=== PATIENT | female | born 1945 | race Caucasian/White ===

== ENCOUNTER → 2016-11-24 | Outpatient (CLI) | payer OTHER ==
[~2016-11-24] MED LIST: ALL100 PO; ASPCH81X PO; ATOR-26 PO; CALCTAB7 PO; CLS1 PO; FISHOIL PO; FLV1 PO; GLIP5TAB11 PO; METO25TA56 PO; MULTTAB58 PO; WARF2.5T8 PO; ZNT/150 PO
[2016-11-24 17:31] LABS: HEMATOCRIT 42.1 % (37-47); MEAN CELL VOLUME 101.2 fL (80-100); MEAN CORPUSCULAR HEMOGLOBIN 30.8 pg (25-34); MEAN CORPUSCULAR HGB CONC 30.4 g/dl (32-36); MEAN PLATELET VOLUME 11.9 fL (7.4-10.4); PLATELET COUNT 266 K/uL (130-400); RED BLOOD COUNT 4.16 M/uL (4.2-5.4); WHITE BLOOD COUNT 7.19 K/uL (4.8-10.8)
[2016-11-24 17:49] LABS: URINE APPEARANCE CLEAR (CLEAR); URINE BILIRUBIN NEG (NEG); URINE COLOR YELLOW; URINE EPITHELIAL CELL AUTO >30 /lpf (0-5); URINE NITRITE NEG (NEG); URINE PH 5.5 (4.5-7.5); URINE SPECIFIC GRAVITY 1.015 (1.000-1.030); UROBILINOGEN NEG (NEG)
[2016-11-24 17:54] LABS: MANUAL MICROSCOPIC REQUIRED? NO; REVIEW REQ? NO
[2016-11-24 17:56] LABS: BLOOD UREA NITROGEN 39 mg/dl (7-18); BUN/CREATININE RATIO 32.4 (10-20); CALCIUM 10.7 mg/dl (8.5-10.1); CARBON DIOXIDE 26 mmol/L (21-32); CHLORIDE 109 mmol/L (98-107); GLUCOSE 108 mg/dl (70-99); PHOSPHORUS 2.6 mg/dl (2.5-4.9); POTASSIUM 4.3 mmol/L (3.5-5.1); SODIUM 142 mmol/L (136-145)
[2016-11-24 17:57] LABS: URINE PROTIEN/CREAT RATIO 0.3 (0-0.2)
== END | disposition home or self-care (01) ==
LOC: C.LABPBG 11:57
PROVIDERS: ATTEND Internal Medicine Nephrology
DX: N18.3 Chronic kidney disease, stage 3 (moderate) (principal); D64.9 Anemia, unspecified; R80.9 Proteinuria, unspecified; E55.9 Vitamin D deficiency, unspecified

== ENCOUNTER → 2016-12-29 | Outpatient (CLI) | payer OTHER ==
[2016-12-29 18:36] LABS: BLOOD UREA NITROGEN 36 mg/dl (7-18); BUN/CREATININE RATIO 22.3 (10-20); CARBON DIOXIDE 25 mmol/L (21-32); CHLORIDE 105 mmol/L (98-107); GLUCOSE 125 mg/dl (70-99); PHOSPHORUS 2.8 mg/dl (2.5-4.9); POTASSIUM 3.9 mmol/L (3.5-5.1); SODIUM 142 mmol/L (136-145)
[2016-12-29 19:02] LABS: CALCIUM 10.6 mg/dl (8.5-10.1)
[2017-01-01 10:59] LABS: ALBUMIN 3.8 G/DL (3.8-4.8); ALBUMIN % 29.03 %; ALPHA-2-GLOBULIN % 19.21 %; BETA GLOBULIN % 21.24 %; CREATININE UR 82 MG/DL (20-320); FREE KAPPA 49.3 MG/L (3.3-19.4); FREE KAPPA/LAMBDA RATIO 1.12 (0.26-1.65); FREE LAMBDA 43.9 MG/L (5.7-26.3); GAMMA GLOBULIN 0.9 G/DL (0.8-1.7); GAMMA GLOBULIN % 25.05 %; TOTAL PROTEIN 6.6 G/DL (6.2-8.3)
== END | disposition home or self-care (01) ==
LOC: C.LABPBG 13:04
PROVIDERS: ATTEND Internal Medicine Nephrology
DX: E83.52 Hypercalcemia (principal)

== ENCOUNTER → 2017-10-12 | Outpatient (CLI) | payer OTHER ==
[2017-10-12 16:56] LABS: BLOOD UREA NITROGEN 35 mg/dl (7-18); CALCIUM 9.4 mg/dl (8.5-10.1); CARBON DIOXIDE 23 mmol/L (21-32); CREATININE 1.33 mg/dl (0.60-1.20); GLUCOSE 152 mg/dl (70-99); POTASSIUM 4.6 mmol/L (3.5-5.1); SODIUM 138 mmol/L (136-145)
[2017-10-12 16:57] LABS: PHOSPHORUS 2.9 mg/dl (2.5-4.9)
[2017-10-12 18:15] LABS: HEMATOCRIT 29.7 % (37-47); HEMOGLOBIN 8.8 g/dL (12.0-16.0); MEAN CELL VOLUME 76.7 fL (80-100); MEAN CORPUSCULAR HEMOGLOBIN 22.7 pg (25-34); MEAN CORPUSCULAR HGB CONC 29.6 g/dl (32-36); MEAN PLATELET VOLUME 10.4 fL (7.4-10.4); PLATELET COUNT 320 K/uL (130-400); RED CELL DISTRIBUTION WIDTH CV 18.6 % (11.5-14.5); RED CELL DISTRIBUTION WIDTH SD 52.4 fL (36.4-46.3); WHITE BLOOD COUNT 7.55 K/uL (4.8-10.8)
== END | disposition home or self-care (01) ==
LOC: C.LABPBG 14:33
PROVIDERS: ATTEND Internal Medicine Nephrology
DX: E83.52 Hypercalcemia (principal); N18.3 Chronic kidney disease, stage 3 (moderate)

== ENCOUNTER 2020-05-07 13:52 | Inpatient (IN) ==
[2020-05-07 14:28] LABS: Basophils # (auto) 0.03 K/uL (0-0.2); Basophils % (auto) 0.2 %; Eosinophils # (auto) 0.11 K/uL (0-0.5); Eosinophils % (auto) 0.9 %; Hematocrit (blood only) 39.9 % (37-47); Hemoglobin 12.8 g/dL (12.0-16.0); Immature Granulocytes # (auto) 0.04 K/uL (0.00-0.02); Immature Granulocytes % (auto) 0.3 %; Lymphocytes # (auto) 1.23 K/uL (1.2-3.4); Lymphocytes % (auto) 10.1 %; Mean Corpuscular Hemoglobin 31.8 pg (25-34); Mean Corpuscular Hgb Conc 32.1 g/dL (32-36); Mean Platelet Volume 11.7 fL (7.4-10.4); Monocytes # (auto) 0.79 K/uL (0.11-0.59); Monocytes % (auto) 6.5 %; Neutrophils # (auto) 10.02 K/uL (1.4-6.5); Nucleated RBC # (auto) 0.02 K/uL (0-0); Nucleated RBC % (auto) 0.1 %; Platelet Count 254 K/uL (130-400); RDW Coefficient of Variation 15.3 % (11.5-14.5); RDW Standard Deviation 55.2 fL (36.4-46.3); Red Blood Count 4.03 M/uL (4.2-5.4); White Blood Count 12.22 K/uL (4.8-10.8)
--- NOTE | 2020-05-07 14:34 | Emergency Department Note ---
Impression & Plan Hyperkalemia, Supratherapeutic INR ED Provider Note INFORMANT: Patient ED PROVIDER(S): Ryan Vivar MD CHIEF COMPLAINT: Abnormal labs PLAN: Disposition: Admitted Condition: Good MEDICAL DECISION MAKING: Patient presented to emergency department because of elevated potassium that has been found on several serial measurements. She noted diarrhea as her other main complaint. The patient underwent a work-up. Her CBC showed a mild anemia but no leukocytosis. Coags revealed a supratherapeutic INR. The patient's ch emistry panel revealed mild hyperkalemia. Her ECG did not reveal any acute findings consistent with hyperkalemia. I discussed the case with the [facility] service who asked for nephrology to be consulted. I discussed the case with Dr. Austin Matthews and he recommended a oral dose of Veltassa and admission for medication management and repeat potassium. I discussed this again with Harmony jaime NP of the [facility] service. The patient was evaluated for admission under the care of Dr. Garrett. Triage Nursing notes reviewed and agree them. Additional history obtained from significant other. Prior medical records reviewed, outpatient potassium measurements trending upwards and peaked at 6.3. Vital Signs: reviewed and remarkable for no significant abnormalities Differential diagnosis: Infection, dehydration, metabolic abnormality, hypo/hyperglycemia, electrolyte disturbance, anemia, hypoxia, cardiac sources, intracerebral event, toxicologic, neurologic, as well as other pathologies. Diagnostics interpreted by me: ECG: Twelve-lead ECG reveals a normal sinus rhythm at 86 bpm. Left axis deviation. Right bundle branch block. Inferior Q waves and anterolateral Q waves. No peaked T waves present. No PVCs. Cardiac Monitoring: Cardiac monitoring ordered by me: The patient was placed on continuous cardiac monitoring and observed. It revealed a normal sinus rhythm at 85 beats per minute without ectopy or evidence of dysrhythmia. Consultation(s): [facility] nephrology, Dr. Austin Matthews HPI: The patient is a 74 year old female who presents to the Emergency Room with complaints of abnormal labs. This started a few days ago and is presisting. The patient also notes the following associated symptoms, diarrhea. States her outpt potassium levels were high. The patient has been prescribed no medication for relieving factors. Current pain is rated as 0/10. She is anticoagulated on coumadin. Does note some black stools with diarrhea. Pt denies LOC, headache, fevers, chills, diaphoresis, visual changes, neck pain, chest pain, breathing difficulties, nausea, vomiting, abdominal pain, back pain, hematochezia, urinary symptoms, numbness, weakness, lymphadenopathy, rash, or other complaints. ROS: See above HPI for pertinent positives & negatives. A total of 10 systems reviewed and were otherwise negative. PAST MEDICAL HISTORY:See Below, DVT, PE PAST SURGICAL HISTORY:See Below, Hernia FAMILY HISTORY:See Below SOCIAL HISTORY:See Below, HOME MEDICATIONS:See Below ALLERGIES:See Below VITALS:See Below PHYSICAL EXAMINATION: GENERAL: Awake, alert, well-appearing, in no distress HENT: Normocephalic, atraumatic. Oropharynx unremarkable. EYES: Normal conjunctiva. Sclera non-icteric. NECK: Inspection normal. Non-tender. Supple. No nuchal rigidity. FROM. No masses. RESPIRATORY: Clear to auscultation. No wheezes. No rales. Normal respiratory effort. CARDIAC: Normal rate. Normal rhythm. No murmurs. No rubs. Extremities warm and well perfused. Pulses equal. No JVD. GI: Soft, non-distended. No tenderness to palpation. No rebound or guarding. No masses. RECTAL: Deferred. MUSCULOSKELETAL: Atraumatic. Chest examination reveals no tenderness. The back is symmetrical on inspection without obvious abnormality. There is no CVA te nderness to palpation. No joint edema. LOWER EXTREMITIES: Calves are equal size bilaterally and non-tender. No edema. No discoloration. NEURO: Normal sensorium. No sensory or motor deficits noted. SKIN: No rash or jaundice noted. Ryan Vivar MD Past Med/Surg History Medical History Aortic stenosis CKD (chronic kidney disease), stage III DM type 2 (diabetes mellitus, type 2) Gout History of DVT (deep vein thrombosis) History of pulmonary embolism HTN (hypertension) Hyperlipidemia Presence of IVC filter Surgical History History of cataract surgery History of femoropopliteal bypass History of incisional hernia repair S/P AAA repair S/P repair of paraesophageal hernia S/P VAN (total abdominal hysterectomy) Family History Mother Hypertension Social History Smoking Status: Never smoker Hx Alcohol Use: No Hx Substance Use: No Preferred Language: Lao Communication Ability: Effective Platen Builder Up Required: No Beliefs That Will Affect Care: None Current Living Situation: Spouse Feels Safe at Home: Yes Safety Concerns: Feels Safe At This Time Assistive Devices: Denture - Upper, Glasses, Hearing Aid - Left and Walker Allergies Allergies Allergy/AdvReac Type Severity Reaction Status Date / Time No Known Allergies Allergy Verified 05/07/20 16:15 Home Meds Home Medications Medication Instructions Recorded Confirmed allopurinol 100 mg tablet 100 mg PO DAILY tab 04/20/19 05/07/20 atorvastatin 80 mg tablet 80 mg PO DAILY #30 tab 04/20/19 05/07/20 cholecalciferol (vitamin D3) 50 2,000 units PO DAILY tab 04/20/19 05/07/20 mcg (2,000 unit) tablet colestipol 1 gram tablet 1 gm PO BID tab 04/20/19 05/07/20 docusate sodium 100 mg tablet 100 mg PO BID PRN tab 04/20/19 05/07/20 glipizide 5 mg tablet 2.5 mg PO BID tab 04/20/19 05/07/20 metoprolol tartrate 25 mg tablet 25 mg PO BID #180 tab 04/20/19 05/07/20 omega-3 acid ethyl esters 1 gram 4 cap PO DAILY cap 04/20/19 05/07/20 capsule triamcinolone acetonide 0.1 % 1 appln TOPICAL BID PRN gm 04/20/19 05/07/20 topical cream warfarin 2.5 mg tablet 2.5 mg PO QPM tab 04/20/19 05/07/20 aspirin 81 mg PO DAILY 05/07/20 05/07/20 ferrous sulfate 325 mg PO DAILY 05/07/20 05/07/20 metformin 500 mg PO BID 05/07/20 05/07/20 olmesartan [Benicar] 40 mg PO DAILY 05/07/20 05/07/20 pantoprazole 20 mg PO DAILY 05/07/20 05/07/20 Results & Data (ED) Vital Signs Vital Signs - 24 hr 05/07/20 13:53 05/07/20 14:44 05/07/20 14:45 Temperature 36.7 C Temperature Source Oral Pulse Rate 107 H 76 Respiratory Rate 18 24 Blood Pressure 141/84 H 119/67 Blood Pressure Mean 103 76 Pulse Oximetry 98 97 Oxygen Delivery Method Room Air Room Air Sepsis Recent Fever Within 48 Hours No Sepsis New/Unexplained Change in Mental Status N/A Sepsis Action Taken by Nursing No Action Required 05/07/20 14:55 05/07/20 15:00 05/07/20 15:30 Temperature Temperature Source Pulse Rate 76 75 77 Respiratory Rate 23 22 23 Blood Pressure 116/69 125/77 Blood Pressure Mean 74 92 Pulse Oximetry Oxygen Delivery Method Sepsis Recent Fever Within 48 Hours Sepsis New/Unexplained Change in Mental Status Sepsis Action Taken by Nursing 05/07/20 16:00 05/07/20 16:30 Temperature Temperature Source Pulse Rate 74 88 Respiratory Rate 28 H 25 H Blood Pressure 136/86 158/91 H Blood Pressure Mean 104 105 Pulse Oximetry Oxygen Delivery Method Sepsis Recent Fever Within 48 Hours Sepsis New/Unexplained Change in Mental Status Sepsis Action Taken by Nursing Laboratory Data Result diagrams: 05/07/20 14:15 05/07/20 14:15 Lab Results 05/07/20 05/07/20 Range/Units 14:15 14:15 WBC 12.22 H (4.8-10.8) K/uL RBC 4.03 L (4.2-5.4) M/uL Hgb 12.8 (12.0-16.0) g/dL Hct 39.9 (37-47) % MCV 99.0 (80-100) fL MCH 31.8 (25-34) pg MCHC 32.1 (32-36) g/dL RDW Std Deviation 55.2 H (36.4-46.3) fL RDW Coeff of Beka 15.3 H (11.5-14.5) % Plt Count 254 (130-400) K/uL MPV 11.7 H (7.4-10.4) fL Immature Gran % (Auto) 0.3 % Neut % (Auto) 82.0 % Lymph % (Auto) 10.1 % Lee % (Auto) 6.5 % Eos % (Auto) 0.9 % Baso % (Auto) 0.2 % Neut # (Auto) 10.02 H (1.4-6.5) K/uL Lymph # (Auto) 1.23 (1.2-3.4) K/uL Lee # (Auto) 0.79 H (0.11-0.59) K/uL Eos # (Auto) 0.11 (0-0.5) K/uL Baso # (Auto) 0.03 (0-0.2) K/uL Immature Gran # (Auto) 0.04 H (0.00-0.02) K/uL Absolute Nucleated RBC 0.02 H (0-0) K/uL Nucleated RBC % (auto) 0.1 % Sodium 140 (136-145) mmol/L Potassium 5.8 H (3.5-5.1) mmol/L Chloride 116 H (98-107) mmol/L Carbon Dioxide 17 L (21-32) mmol/L Anion Gap 7.0 (3-11) BUN 47 H (7-18) mg/dl Creatinine 1.55 H (0.6-1.2) mg/dl Est Cr Clr Drug Dosing 31.9 ml/min Est GFR ( Amer) 38.4 Est GFR (Non-Af Amer) 33.1 BUN/Creatinine Ratio 30.1 H (10-20) Glucose 90 (70-99) mg/dl Calcium 9.7 (8.5-10.1) mg/dl Total Bilirubin 0.4 (0.2-1) mg/dl AST 19 (15-37) U/L ALT 21 (12-78) U/L Alkaline Phosphatase 101 (45-117) U/L Total Protein 7.1 (6.4-8.2) gm/dl Albumin 3.0 L (3.4-5.0) gm/dl Globulin 4.1 H (2.5-4.0) gm/dl Albumin/Globulin Ratio 0.7 L (0.9-2) Lipase 260 (73-393) U/L Specimen Hemolysis Administered Medications Insulin Aspart (Insulin Aspart 100 Units/Ml 3 Ml Pen) 0 units SC ACHS ABBIE Stop: 06/06/20 20:59 Last Admin: 05/07/20 20:59 Dose: Not Given Documented by: [id number] Metoprolol Tartrate (Metoprolol Tartrate 25 Mg Tab) 25 mg PO BID ABBIE Stop: 06/06/20 20:59 Last Admin: 05/07/20 22:23 Dose: 25 mg Documented by: [id number] Discontinued Medications Patiromer (Patiromer Calcium Sorbitex 8.4 Gm Pack) 8.4 gm PO DAILY ONE Stop: 05/07/20 16:20 Last Admin: 05/07/20 17:01 Dose: 8.4 gm Documented by: [id number] Discharge Plan Visit Data Chief Complaint: Abnormal Labs/Diagnostic Testing Stated Complaint: ABNORMAL LABS ED Provider: Ryan Vivar Discharge Problem: Hyperkalemia, Supratherapeutic INR Discharge Instructions Interventions: ED Discharge Assessment Last Done: 05/07/20 17:48
[2020-05-07 14:59] LABS: Albumin Globulin Ratio 0.7 (0.9-2); BUN Creatinine Ratio 30.1 (10-20); Bilirubin,Total 0.4 mg/dl (0.2-1); Calcium 9.7 mg/dl (8.5-10.1); Creatinine Clr Calc Pharmacy 31.9 ml/min; Est GFR (African American) 38.4; Est GFR (Non-African American) 33.1; Globulin 4.1 gm/dl (2.5-4.0); Potassium 5.8 mmol/L (3.5-5.1); Total Protein 7.1 gm/dl (6.4-8.2)
[2020-05-07] MEDS ORDERED: PATIROMER CALCIUM SORBITEX 8.4 GM PACK PO ONE (16:19)
--- NOTE | 2020-05-07 16:35 | Electrocardiogram Report ---
Test Reason : Blood Pressure : / mmHG Vent. Rate : 086 BPM Atrial Rate : 086 BPM P-R Int : 196 ms QRS Dur : 120 ms QT Int : 384 ms P-R-T Axes : 056 -34 -15 degrees QTc Int : 459 ms Poor data quality, interpretation may be adversely affected Normal sinus rhythm Left axis deviation Right bundle branch block Inferior infarct , age undetermined Anterolateral infarct , age undetermined Abnormal ECG When compared with ECG of 27-DEC-2013 17:26, Inferior infarct is now Present Anterolateral infarct is now Present Confirmed by Rashid Simpson ([id number]) on 05/07/2020 4:35:26 PM Referred By: REFERRED SELF Confirmed By:Rashid Simpson
[2020-05-07 17:30] LABS: Prothrombin Time 58.7 Seconds (9.0-12.0)
[2020-05-07 17:32] LABS: INR 6.1 (0.9-1.1)
--- NOTE | 2020-05-07 17:53 | History & Physical Report ---
Date of Service May 07, 2020 Assessment & Plan (1) Hyperkalemia: -Admit to [facility] with telemetry -Patient presenting by referral PCP for evaluation of hyperkalemia -Has been having diarrhea for the past 2 weeks -Outpatient labs showed K+ 5.9 05/06, repeat today K+ 6.3 -In the ED, K+ 5.8 -May be due to dehydration from diarrhea in combination with olmesartan use -Case discussed with Dr. Matthews by ED physician. Recommends 1 dose of patiromer. -Hold olmesartan, give IVF -Follow K+ (2) Diarrhea: -on going for 2 weeks with reports of black stools as well -Hgb stable at 12.8 -Stool for C. difficile and Hemoccult pending -Anticoagulated on Coumadin for history of DVT and PE, INR 6.1. Given stable Hgb and vitals and lack of obvious GI bleeding, will not reverse Coumadin at this time. -EGD 2015 - Reflux esophagitis -Colonoscopy 2012 - Moderate diverticulosis in the sigmoid colon, Internal hemorrhoids. -May need CT ABD/pelvis and/or GI consult pending results of stool studies (3) HTN (hypertension): -BP controlled, continue metoprolol -Holding olmesartan as above (4) CKD (chronic kidney disease), stage III: -Baseline creatinine runs in the mid ones -Noted to be 1.5 today -Monitor renal functions (5) History of pulmonary embolism: (6) History of DVT (deep vein thrombosis): -Anticoagulant Coumadin, INR 6.1 -Will not reverse for now as above -INR daily (7) DM type 2 (diabetes mellitus, type 2): -Hgb A1c 7.9 04/2020 -Hold oral agents and utilize NovoLog per protocol while hospitalized (8) DVT prophylaxis: -Anticoagulated on Coumadin History of Present Illness Chief Complaint: Hyperkalemia Primary Care Provider: Madhuri Galicia DO 74-year-old female with PMH DM type II, gout, HTN, aortic stenosis, history of DVT and PE anticoagulated on Coumadin, and other problems listed below who was referred to the ED by PCP for evaluation of hyperkalemia. Patient reports she was started on Metformin in January. Reports that shortly after starting the medication, she developed diarrhea. Metformin was changed to extended release and patient reports the diarrhea resolved. Reports she again developed diarrhea about 2 weeks ago. Shortly after, she noted that her stools were black in color. Patient reports having up to 4 diarrheal episodes per day. Denies bright red bleeding per rectum. No abdominal pain, nausea, vomiting. Patient had outpatient labs drawn yesterday that showed potassium 5.9. Repeat labs today show potassium 6.3. Patient was referred to the ED for further evaluation and treatment. Patient denies chest pain shortness of breath. No lightheadedness, dizziness, diaphoresis, syncopal events. Denies fevers and chills. No urinary symptoms. In the ED, K+ 5.8. Patient is hemodynamically stable. Stool for C. difficile and Hemoccult are currently pending. INR 6.1. Hgb stable at 12.8. ED discussed the case with Dr. Matthews with nephrology. He recommended 1 dose of patirmoer. Allergies Allergy/AdvReac Type Severity Reaction Status Date / Time No Known Allergies Allergy Verified 05/07/20 16:15 Home Medications Home Medications Medication Instructions Recorded Confirmed Type allopurinol 100 mg tablet 100 mg PO DAILY tab 04/20/19 05/07/20 History atorvastatin 80 mg tablet 80 mg PO DAILY #30 tab 04/20/19 05/07/20 History cholecalciferol (vitamin D3) 50 2,000 units PO DAILY tab 04/20/19 05/07/20 History mcg (2,000 unit) tablet colestipol 1 gram tablet 1 gm PO BID tab 04/20/19 05/07/20 History docusate sodium 100 mg tablet 100 mg PO BID PRN tab 04/20/19 05/07/20 History glipizide 5 mg tablet 2.5 mg PO BID tab 04/20/19 05/07/20 History metoprolol tartrate 25 mg tablet 25 mg PO BID #180 tab 04/20/19 05/07/20 History omega-3 acid ethyl esters 1 gram 4 cap PO DAILY cap 04/20/19 05/07/20 History capsule triamcinolone acetonide 0.1 % 1 appln TOPICAL BID PRN gm 04/20/19 05/07/20 History topical cream warfarin 2.5 mg tablet 2.5 mg PO QPM tab 04/20/19 05/07/20 History aspirin 81 mg PO DAILY 05/07/20 05/07/20 History ferrous sulfate 325 mg PO DAILY 05/07/20 05/07/20 History metformin 500 mg PO BID 05/07/20 05/07/20 History olmesartan [Benicar] 40 mg PO DAILY 05/07/20 05/07/20 History pantoprazole 20 mg PO DAILY 05/07/20 05/07/20 History Past Med/Surg History Medical History Aortic stenosis CKD (chronic kidney disease), stage III DM type 2 (diabetes mellitus, type 2) Gout History of DVT (deep vein thrombosis) History of pulmonary embolism HTN (hypertension) Hyperlipidemia Presence of IVC filter Surgical History History of cataract surgery History of femoropopliteal bypass History of incisional hernia repair S/P AAA repair S/P repair of paraesophageal hernia S/P VAN (total abdominal hysterectomy) Family History Mother Hypertension Social History Smoking Status: Never smoker Hx Alcohol Use: No Preferred Language: Hungarian Feels Safe at Home: Yes Review of Systems Review of Systems: ROS per HPI, all other systems reviewed and negative Physical Exam Constitutional: WD/WN, vitals as above Eyes: PERRL, conjunctivae normal, anicteric sclerae ENMT: external ear and nose normal, oropharynx normal Respiratory: normal respiratory effort, lungs clear to auscultation Cardiovascular: Rate/Rhythm: regular rate and regular rhythm Heart Sounds: + murmur (Systolic, grade 3/6) Vessels: normal peripheral pulses Extremities: no edema Gastrointestinal (Abdomen): normal bowel sounds, soft, nontender, no hepatosplenomegaly Musculoskeletal: no cyanosis or clubbing, extremities motor strength 5/5 Skin: no rashes, warm and dry Neurologic: PERRL, EOMI, accommodation nl, no face palsy, no dysarthria Psychiatric: A+Ox3, euthymic affect Results & Data Results & Data ([facility]) Vital Signs (Past 12 Hours) Vital Signs Temp Pulse Resp BP Pulse Ox 05/07/20 17:30 86 20 119/77 10/20/20 17:00 88 28 H 05/07/20 16:30 88 25 H 158/91 H 05/07/20 16:00 74 28 H 136/86 05/07/20 15:30 77 23 125/77 05/07/20 15:00 75 22 116/69 05/07/20 14:55 76 23 05/07/20 14:45 97 05/07/20 14:44 76 24 119/67 05/07/20 13:53 36.7 C 107 H 18 141/84 H 98 Laboratory Results Short CBC 05/07/20 Range/Units 14:15 WBC 12.22 H (4.8-10.8) K/uL Hgb 12.8 (12.0-16.0) g/dL Hct 39.9 (37-47) % Plt Count 254 (130-400) K/uL BMP 05/07/20 14:15 Sodium 140 Potassium 5.8 H Chloride 116 H Carbon Dioxide 17 L BUN 47 H Creatinine 1.55 H Glucose 90 Calcium 9.7 Liver Function 05/07/20 Range/Units 14:15 Total Bilirubin 0.4 (0.2-1) mg/dl AST 19 (15-37) U/L ALT 21 (12-78) U/L Alkaline Phosphatase 101 (45-117) U/L Albumin 3.0 L (3.4-5.0) gm/dl Code Status & VTE Plan Code Status Patient is a DNR as per my discussion with her. VTE Prophylaxis Plan VTE Prophylaxis will be ordered: No Supervising Physician Co-Signing Physician Notes I saw this patient with the Nurse Practitioner, I participated in the history, physical, review of systems, and physical exam. I reviewed the medications with the patient and the Nurse Practitioner and helped reconcile the medications. I helped take a detailed family and social history as well. I formulated the assessment and plan personally with the Nurse Practitioner went over it with the patient. Physical Exam Gen-AAO x 3, NAD, Afebrile Head-NCAT, EOMI, PERRLA, Anicteric Sclera, No Posterior Pharyngeal Erythema Neck-Supple, No JVD, No Thyromegaly, No Masses, No LAD, No Bruits Lungs-Clear to Auscultation Bilaterally, No Rales, No Rhonchi, No Wheezing, No Crepitus Chest-No S4, +S1, +S2, No S3, No Murmurs, No Rubs, No Gallops, No Ectopy Abdomen-Soft, Bowel Sounds Present, Non Tender, Non Distended, No Hepatomegaly, No Splenomegaly, No Palpable Masses, No Rebound, No Rigidity, No Guarding Musculoskeletal-Full Range of Motion Bilaterally, No CVAT Extremities-No Cyanosis, No Clubbing, No Edema Nuero-Cranial Nerves II-XII grossly intact, Motor WNL, DTRs WNL, Strength WNL, Non Focal Psych-Normal Mood
[2020-05-07] MEDS ORDERED: GLUCOSE 40% GEL 15 GM TUBE PO PRN (18:35)
[2020-05-07] MEDS ORDERED: GLUCAGON FOR INJ 1 MG VIAL SQ PRN (18:35)
[2020-05-07] MEDS ORDERED: DEXTROSE 50% 50 ML SYRINGE IV PRN (18:35)
[2020-05-07] MEDS ORDERED: CARBOHYDRATES FOR HYPOGLYCEMIA PO PRN (18:35)
[2020-05-07] MEDS ORDERED: GLUCOSE 10 TABS/TUBE PO PRN (18:35)
[2020-05-07] MEDS: INSULIN ASPART 100 UNITS/ML 3 ML PEN SC SCH (20:59)
[2020-05-07] MEDS: METOPROLOL TARTRATE 25 MG TAB PO SCH (22:23)
[2020-05-07 23:30] LABS: BUN Creatinine Ratio 31.5 (10-20); Calcium 10.2 mg/dl (8.5-10.1); Creatinine Clr Calc Pharmacy 31.3 ml/min; Est GFR (African American) 37.5; Est GFR (Non-African American) 32.3; Potassium 5.9 mmol/L (3.5-5.1)
[2020-05-08 06:16] LABS: Hemoglobin 11.7 g/dL (12.0-16.0); Mean Corpuscular Hemoglobin 31.5 pg (25-34); Mean Corpuscular Hgb Conc 31.6 g/dL (32-36); Mean Corpuscular Volume 99.5 fL (80-100); Mean Platelet Volume 12.3 fL (7.4-10.4); Platelet Count 226 K/uL (130-400); RDW Coefficient of Variation 15.2 % (11.5-14.5); RDW Standard Deviation 54.8 fL (36.4-46.3); Red Blood Count 3.72 M/uL (4.2-5.4); White Blood Count 8.46 K/uL (4.8-10.8)
[2020-05-08 06:36] LABS: INR 5.4 (0.9-1.1); Prothrombin Time 51.7 Seconds (9.0-12.0)
[2020-05-08 06:49] LABS: BUN Creatinine Ratio 30.7 (10-20); Calcium 9.5 mg/dl (8.5-10.1); Creatinine Clr Calc Pharmacy 32.3 ml/min; Est GFR (Non-African American) 33.6; Potassium 5.2 mmol/L (3.5-5.1)
--- NOTE | 2020-05-08 07:11 | CT Scan Report ---
CT abd pelvis oral con only CLINICAL HISTORY: diarrhea, leukocytosis COMPARISON STUDY: 05/27/2010 FINDINGS: Patient was scanned following administration of dilute oral contrast. No intravenous contra st was ministered. A dose reduction technique was utilized according to the principles of ALARA The lung bases reveal no pleural effusions. There are mild atelectatic changes. There is a hiatal her lynn which contains portion of stomach and pancreas. No hepatic masses are visualized in this noncontrast study. No gallbladder abnormalities are visualized. No splenic masses are visualized. No pancreatic lesions are delineated. There is a 2 cm left adrenal adenoma. No renal, ureteral, or bladder calculi are visualized. There is no evidence of abdominal aortic aneurysm. There is an indwelling IVC filter. There is no free air. There is no ascites. There are no transition zones indicate bowel obstruction. There is no evidence of acute diverticuliti s. There are no findings to indicate acute appendicitis. The uterus is surgically absent. There are bilateral lower anterior pelvic wall varices. No destructive skeletal lesions are visualized. There is a prominent scoliosis. IMPRESSION: 1. No evidence of bowel obstruction. No evidence of free air 2. No renal, ureteral, or bladder calculi identified 3. No evidence of acute diverticulitis. No evidence of acute appendicitis. ACT 112: Negative or not required by law. Electronically signed by: Marcus Garrison M.D. 05/08/2020 7:09 AM
[2020-05-08] MEDS: METOPROLOL TARTRATE 25 MG TAB PO SCH ×2 (09:27→21:21)
[2020-05-08] MEDS: ASPIRIN 81 MG ECTAB PO SCH (09:27)
[2020-05-08] MEDS: CHOLECALCIFEROL 1,000 UNITS 25 MCG TAB PO SCH (09:28)
[2020-05-08] MEDS: FERROUS SULFATE 325 MG TAB PO SCH (09:28)
[2020-05-08] MEDS: allopurinoL 100 MG TAB PO SCH (09:28)
[2020-05-08] MEDS: ATORVASTATIN 40 MG TAB PO SCH (09:28)
[2020-05-08] MEDS: PANTOprazole 40 MG TAB PO SCH (09:28)
[2020-05-08] MEDS: INSULIN ASPART 100 UNITS/ML 3 ML PEN SC SCH ×4 (09:30→21:21)
--- NOTE | 2020-05-08 10:18 | Nephrology Consultation ---
Date of Consultation May 08, 2020 Assessment & Plan (1) Hyperkalemia: * Hyperkalemia likely related to ARB therapy * Patient reports a h/o diarrhea and black stool. GIB could also be playing a role. INR 6.1 on admission * Hold Olmesartan * Veltassa administered in ED. Serum potassium improved to 5.2 this morning * Will provide one dose oral furosemide * Recommend low K diet * Monitor PRP, I&O's (2) CKD (chronic kidney disease), stage III: * Baseline Cr 1.7 * Stable kidney function at this time (3) Melena: * h/o gastric polyps * Supratherapeutic INR. Consider correcting w/ vitamin K * Recommend checking FOBT. If + consider consultation w/ gastroenterology History of Present Illness Reason for Consultation: CKD, hyperkalemia Attending Physician: Juan Francisco Royal MD History of Present Illness Mrs. Rciks is a 74 year old white female who is seen at the request of Harmony Ferguson PA-c for evaluation of CKD, hyperkalemia. Medical records in the EMR were reviewed today and are summarized as follows: Mrs. Ricks has CKD w/ baseline Cr 1.7. In 2009 she suffered MARISSA requiring HD during hospitalization for incarcerated ventral abdominal wall hernia. Post-op her creatinine stabilized at 1.7. Mrs. Ricks resides in [place], [place]. Her Food Counselor is Dr. Ayala. 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 Mrs. Ricks reports that she was recently started on metformin by her PCP. This was complicated by diarrhea. Recently she began to have black stool. She was evaluated by her PCP and noted to have serum potassium 6.3. Mrs. Ricks was referred to the ED for evaluation. ECG was negative for QRS prolongation or peaked T-waves. Insulin, dextrose and patiromer were administered. Olmesartan was stopped. Admission was advised for cardiac monitoring, correction of serum potassium and to assess for GI blood loss. Allergies Allergy/AdvReac Type Severity Reaction Status Date / Time No Known Allergies Allergy Verified 05/07/20 16:15 Home Medications Home Medications Medication Instructions Recorded Confirmed Type allopurinol 100 mg tablet 100 mg PO DAILY tab 04/20/19 05/07/20 History atorvastatin 80 mg tablet 80 mg PO DAILY #30 tab 04/20/19 05/07/20 History cholecalciferol (vitamin D3) 50 2,000 units PO DAILY tab 04/20/19 05/07/20 History mcg (2,000 unit) tablet colestipol 1 gram tablet 1 gm PO BID tab 04/20/19 05/07/20 History docusate sodium 100 mg tablet 100 mg PO BID PRN tab 04/20/19 05/07/20 History glipizide 5 mg tablet 2.5 mg PO BID tab 04/20/19 05/07/20 History metoprolol tartrate 25 mg tablet 25 mg PO BID #180 tab 04/20/19 05/07/20 History omega-3 acid ethyl esters 1 gram 4 cap PO DAILY cap 04/20/19 05/07/20 History capsule triamcinolone acetonide 0.1 % 1 appln TOPICAL BID PRN gm 04/20/19 05/07/20 History topical cream warfarin 2.5 mg tablet 2.5 mg PO QPM tab 04/20/19 05/07/20 History aspirin 81 mg PO DAILY 05/07/20 05/07/20 History ferrous sulfate 325 mg PO DAILY 05/07/20 05/07/20 History metformin 500 mg PO BID 05/07/20 05/07/20 History olmesartan [Benicar] 40 mg PO DAILY 05/07/20 05/07/20 History pantoprazole 20 mg PO DAILY 05/07/20 05/07/20 History Patient History Medical History Aortic stenosis CKD (chronic kidney disease), stage III DM type 2 (diabetes mellitus, type 2) Gout History of DVT (deep vein thrombosis) History of pulmonary embolism HTN (hypertension) Hyperlipidemia Presence of IVC filter Surgical History History of cataract surgery History of femoropopliteal bypass History of incisional hernia repair S/P AAA repair S/P repair of paraesophageal hernia S/P VAN (total abdominal hysterectomy) Family History Mother Hypertension Social History Smoking Status: Never smoker Hx Alcohol Use: No Hx Substance Use: No Preferred Language: Danish Communication Ability: Effective Grain Trader Required: No Beliefs That Will Affect Care: None Current Living Situation: Spouse Feels Safe at Home: Yes Safety Concerns: Feels Safe At This Time Assistive Devices: Denture - Upper, Glasses, Hearing Aid - Left and Walker Review of Systems Constitutional: no fever and no weakness Eyes: no problem reported Ear, Nose, Mouth, Throat: no problem reported Respiratory: no dyspnea Cardiovascular: no chest pain, no palpitations and no edema Gastrointestinal: + diarrhea/loose stools; no abdominal pain and no vomiting Genitourinary: no dysuria and no hematuria Musculoskeletal: no back pain Integumentary: no rash Neurologic: no falls and no confusion Physical Exam Constitutional: not in distress Eyes: PERRL, conjunctivae normal, anicteric sclerae ENMT: external ear and nose normal, oropharynx normal Neck: trachea midline, no thyromegaly Respiratory: normal respiratory effort, lungs clear to auscultation Cardiovascular: RRR, no murmur, no edema Gastrointestinal (Abdomen): normal bowel sounds, soft, nontender, no hepatosplenomegaly Musculoskeletal: Extremities: no cyanosis Skin: no rashes, warm and dry Neurologic: awake; not confused Results & Data ([facility]) Vital Signs (Past 12 Hours) Vital Signs Temp Pulse Pulse Resp BP BP Pulse Ox 05/08/20 09:20 70 05/08/20 08:00 36.4 C L 53 L 18 152/83 H 95 05/08/20 07:00 57 L 05/08/20 04:00 36.7 C 58 L 18 125/86 98 05/08/20 00:30 69 05/08/20 00:00 36.4 C L 69 18 127/81 97 Laboratory Results Laboratory Tests 05/08/20 05/08/20 05:26 05:26 WBC 8.46 Hgb 11.7 L Hct 37.0 Plt Count 226 Sodium 140 Potassium 5.2 H Chloride 117 H Carbon Dioxide 19 L BUN 47 H Creatinine 1.53 H Glucose 190 H PG Care Time/CCT Total # of Minutes Spent Total Time Spent with Patient: Total time spent is greater than 50% in coordination of care (as documented) at patient's floor/unit and/or counseling patient: Coding Level of Care Code 27294 Inpt Consult Level 5 Diagnoses Hyperkalemia E87.5 CKD (chronic kidney disease), stage III N18.30 Melena K92.1
[2020-05-08] MEDS ORDERED: FUROSEMIDE 20 MG TAB PO ONE (10:30)
[2020-05-08 10:49] LABS: Appearance Urine Cloudy (Clear); Bacteria Urine Automated Negative (Negative); Bilirubin Urine Negative (Negative); Blood Urine Trace (Negative); Color Urine Yellow; Glucose Urine UA Negative (Negative); Ketones Urine Negative (Negative); Leukocyte Esterase Urine 3+ (Negative); Nitrite Urine Negative (Negative); Protein Urine Negative (Negative); RBC Urine Automated 0-4 /hpf (0-4); Specific Gravity Urine 1.013 (1.000-1.030); Urobilinogen Urine Negative (Negative); WBC Urine Automated >30 /hpf (0-5)
--- NOTE | 2020-05-08 16:57 | Hospitalist Progress Note ---
Date of Service May 08, 2020 Assessment & Plan (1) Hyperkalemia: Hyperkalemia Likely secondary to olmesartan Received 1 dose of patiromer in ED Potassium levels:5.9>>5.2 Olmesartan held Low potassium diet Also received 1 dose of furosemide Monitor electrolytes Appreciate nephrology input Abnormal UA Urine culture pending Consider starting on antibiotics if needed Black stools Likely secondary to iron supplements H/O Reflux esophagitis, Moderate diverticulosis, Internal hemorrhoid Check fecal occult Monitor CBC (2) Diarrhea: Diarrhea CT ABD: No evidence of bowel obstruction. No evidence of free air. No renal, ureteral, or bladder calculi identified. No evidence of acute diverticulitis. No evidence of acute appendicitis. Stool Culture: Negative DD: ? Secondary to Metformin, Also R/O GI bleed Currently no diarrhea Fecal Occult pending Monitor Mild Leukocytosis No obvious source of infection WBC count normalized Monitor (3) HTN (hypertension): BP Variable continue metoprolol Held olmesartan as above Monitor (4) CKD (chronic kidney disease), stage III: Baseline Cr:1.7 Cr at baseline Monitor renal function (5) History of pulmonary embolism: (6) History of DVT (deep vein thrombosis): H/O PE, DVT Supratherapeutic INR INR:6.1>>5.4 Consider to reverse INR if fecal cultures positive Hold Coumadin for now Monitor PT/INR (7) DM type 2 (diabetes mellitus, type 2): Hgb A1c 7.9 04/2020 Hold oral agents Continue NovoLog per protocol while hospitalized (8) DVT prophylaxis: Supratherapeutic INR Resume Coumadin as able Admission and Anticipated Discharge Date Admission Date: May 07, 2020 Subjective Patient is seen and examined at bedside No diarrhea today Potassium levels improving Reports black stools Denies chest pain, shortness of breath, dizziness, nausea, abdominal pain Family at bedside Offers no other complaints Review of Systems Review of Systems: All systems reviewed & are unremarkable except as noted in HPI & below Physical Exam Physical Exam: Physical Exam: Vitals signs as noted above General Appearance:Moderately built and nourished, no apparent distress Head: normocephalic, Atraumatic Eyes: normal inspection, EOMI Neck: supple, Trachea midline Respiratory/Chest: Normal breath sounds, CTA Cardiovascular: S1, S2, + murmur Abdomen/GI:Soft, Non tender, Bowel sounds present Extremities/Musculoskelatal:normal inspection, no edema Neurologic/Psych:AAOX3, grossly no focal neurological deficits Skin: normal color, warm Results & Data Results & Data ([facility]) Vital Signs (Past 12 Hours) Vital Signs Temp Pulse Pulse Resp BP Pulse Ox 05/08/20 15:45 65 05/08/20 15:18 36.4 C L 58 L 18 155/92 H 97 05/08/20 11:32 36.4 C L 60 18 135/77 95 05/08/20 09:20 70 05/08/20 08:00 36.4 C L 53 L 18 152/83 H 95 05/08/20 07:00 57 L Laboratory Results Short CBC 05/08/20 Range/Units 05:26 WBC 8.46 (4.8-10.8) K/uL Hgb 11.7 L (12.0-16.0) g/dL Hct 37.0 (37-47) % Plt Count 226 (130-400) K/uL BMP 05/07/20 05/08/20 22:44 05:26 Sodium 141 140 Potassium 5.9 H 5.2 H Chloride 116 H 117 H Carbon Dioxide 20 L 19 L BUN 50 H 47 H Creatinine 1.58 H 1.53 H Glucose 93 190 H Calcium 10.2 H 9.5 Urine 05/08/20 Range/Units 10:33 Urine Color Yellow Urine Appearance Cloudy A (Clear) Urine pH 5.0 (4.5-7.5) Ur Specific [place] 1.013 (1.000-1.030) Urine Protein Negative (Negative) Urine Glucose (UA) Negative (Negative)
[2020-05-09] MEDS: METOPROLOL TARTRATE 25 MG TAB PO SCH ×2 (08:35→20:32)
[2020-05-09] MEDS: CHOLECALCIFEROL 1,000 UNITS 25 MCG TAB PO SCH (08:36)
[2020-05-09] MEDS: ASPIRIN 81 MG ECTAB PO SCH (08:36)
[2020-05-09] MEDS: allopurinoL 100 MG TAB PO SCH (08:36)
[2020-05-09] MEDS: ATORVASTATIN 40 MG TAB PO SCH (08:36)
[2020-05-09] MEDS: PANTOprazole 40 MG TAB PO SCH (08:36)
[2020-05-09] MEDS: FERROUS SULFATE 325 MG TAB PO SCH (08:36)
[2020-05-09] MEDS: INSULIN ASPART 100 UNITS/ML 3 ML PEN SC SCH ×4 (08:36→20:33)
[2020-05-09 08:50] LABS: Hematocrit (blood only) 39.5 % (37-47); Hemoglobin 12.7 g/dL (12.0-16.0); Mean Corpuscular Hemoglobin 31.8 pg (25-34); Mean Corpuscular Hgb Conc 32.2 g/dL (32-36); Mean Corpuscular Volume 98.8 fL (80-100); Mean Platelet Volume 12.2 fL (7.4-10.4); Platelet Count 250 K/uL (130-400); RDW Coefficient of Variation 15.4 % (11.5-14.5); RDW Standard Deviation 55.6 fL (36.4-46.3); White Blood Count 9.44 K/uL (4.8-10.8)
[2020-05-09 09:02] LABS: INR 2.4 (0.9-1.1); Prothrombin Time 23.9 Seconds (9.0-12.0)
[2020-05-09 09:15] LABS: BUN Creatinine Ratio 31.8 (10-20); Calcium 9.4 mg/dl (8.5-10.1); Creatinine Clr Calc Pharmacy 30.7 ml/min; Est GFR (African American) 36.6; Est GFR (Non-African American) 31.6; Magnesium 1.6 mg/dl (1.8-2.4); Potassium 5.3 mmol/L (3.5-5.1)
[2020-05-09] MEDS ORDERED: PATIROMER CALCIUM SORBITEX 8.4 GM PACK PO ONE (10:00)
--- NOTE | 2020-05-09 10:01 | Nephrology Progress Note ---
Date of Service May 09, 2020 Assessment & Plan (1) Hyperkalemia: * Hyperkalemia likely related to ARB therapy * Stop Olmesartan * Potassium is mildly elevated. Patient is taking in dietary potassium. Will change diet order to remove high potassium foods, consult dietitian for education on low potassium diet, provide one dose Patiromer today and recheck PRP this afternoon * Monitor PRP, I&O's * If discharge is anticipated, please have patient follow up in Nephrology office in 7 - 14 days . Remind her to have PRP completed 24 hours prior to OV. Order has been placed in EMR (2) CKD (chronic kidney disease), stage III: * Baseline Cr 1.7 * Stable kidney function at this time (3) Melena: * h/o gastric polyps * Supratherapeutic INR. Consider correcting w/ vitamin K * FOBT - pending * On oral iron therapy Admission and Anticipated Discharge Date Admission Date: May 07, 2020 Subjective Mrs. Ricks was seen & examined in her hospital room this morning. She reports that her stool is now formed. She denies abdominal pain. Mrs. Ricks had orange juice with her breakfast this morning. Review of Systems Constitutional: no fever Eyes: no problem reported Ear, Nose, Mouth, Throat: no problem reported Respiratory: no dyspnea Cardiovascular: no chest pain and no edema Gastrointestinal: no abdominal pain, no vomiting and no diarrhea/loose stools Genitourinary: no dysuria and no hematuria Musculoskeletal: no back pain Integumentary: no rash Neurologic: no dizziness and no confusion Physical Exam Constitutional: not in distress Eyes: PERRL, conjunctivae normal, anicteric sclerae ENMT: external ear and nose normal, oropharynx normal Neck: trachea midline, no thyromegaly Respiratory: normal respiratory effort, lungs clear to auscultation Cardiovascular: RRR, no murmur, no edema Gastrointestinal (Abdomen): normal bowel sounds, soft, nontender, no hepatosplenomegaly Musculoskeletal: Extremities: no cyanosis Skin: no rashes, warm and dry Neurologic: awake; not confused Results & Data ([facility]) Vital Signs (Past 12 Hours) Vital Signs Temp Pulse Pulse Resp BP Pulse Ox 05/09/20 08:05 36.4 C L 60 18 122/78 98 05/09/20 08:00 56 L 05/09/20 04:17 36.5 C 64 16 124/78 96 05/09/20 00:00 55 L 05/08/20 23:19 36.4 C L 51 L 16 113/76 97 Laboratory Results Laboratory Tests 05/08/20 05:26 WBC 8.46 Hgb 11.7 L Hct 37.0 Plt Count 226 Laboratory Tests 05/09/20 08:14 Sodium 137 Potassium 5.3 H Chloride 111 H Carbon Dioxide 21 BUN 51 H Creatinine 1.61 H Glucose 150 H Magnesium 1.6 L Laboratory Tests 05/09/20 08:14 INR 2.4 H PG Care Time/CCT Total # of Minutes Spent Total Time Spent with Patient: Total time spent is greater than 50% in coordination of care (as documented) at patient's floor/unit and/or counseling patient: Coding Level of Care Code 90339 Subseq Hosp Care Lvl 3 Diagnoses Hyperkalemia E87.5 CKD (chronic kidney disease), stage III N18.30 Melena K92.1
[2020-05-09] MEDS ORDERED: MAGNESIUM SULFATE / D5W 1 GM/100 ML BAG IV ONE (11:00)
[2020-05-09 15:45] LABS: BUN Creatinine Ratio 30.5 (10-20); Calcium 9.3 mg/dl (8.5-10.1); Creatinine Clr Calc Pharmacy 26.9 ml/min; Est GFR (African American) 31.2; Est GFR (Non-African American) 26.9; Potassium 5.5 mmol/L (3.5-5.1)
[2020-05-09] MEDS ORDERED: WARFARIN SOD 1 MG TAB PO SCH (16:00)
[2020-05-09] MEDS ORDERED: FUROSEMIDE 20 MG TAB PO SCH (16:30)
--- NOTE | 2020-05-09 18:18 | Hospitalist Progress Note ---
Date of Service May 09, 2020 Assessment & Plan (1) Hyperkalemia: Hyperkalemia Likely secondary to olmesartan Received 1 dose of patiromer in ED Potassium levels:5.9>>5.2>5.5 Olmesartan held Low potassium diet Continue patiromer and Lasix as per nephrology Monitor electrolytes Appreciate nephrology input Bicarbonate added Abnormal UA Urine culture no growth UTI ruled out Black stools Likely secondary to iron supplements H/O Reflux esophagitis, Moderate diverticulosis, Internal hemorrhoid Check fecal occult--pending Monitor CBC (2) Diarrhea: Diarrhea CT ABD: No evidence of bowel obstruction. No evidence of free air. No renal, ureteral, or bladder calculi identified. No evidence of acute diverticulitis. No evidence of acute appendicitis. Stool Culture: Negative DD: ? Secondary to Metformin, Also R/O GI bleed Currently no diarrhea Fecal Occult pending Diarrhea resolved Mild Leukocytosis No obvious source of infection WBC count normalized Monitor (3) HTN (hypertension): BP Variable continue metoprolol Held olmesartan as above Monitor (4) CKD (chronic kidney disease), stage III: Baseline Cr:1.7 Cr 1.84 Monitor renal function (5) History of pulmonary embolism: (6) History of DVT (deep vein thrombosis): H/O PE, DVT Supratherapeutic INR INR:6.1>>5.4>2.4 Consider to reverse INR if fecal cultures positive Resume Coumadin at lower dose --1 mg today Monitor PT/INR (7) DM type 2 (diabetes mellitus, type 2): Hgb A1c 7.9 04/2020 Hold oral agents Continue NovoLog per protocol while hospitalized (8) DVT prophylaxis: Coumadin Admission and Anticipated Discharge Date Admission Date: May 07, 2020 Subjective Patient is seen and examined at bedside No new complaints Potassium levels trending up Denies chest pain, shortness of breath, dizziness, nausea, abdominal pain INR in therapeutic range Offers no other complaints Review of Systems Review of Systems: All systems reviewed & are unremarkable except as noted in HPI & below Physical Exam Physical Exam: Physical Exam: Vitals signs as noted above General Appearance:Moderately built and nourished, no apparent distress Head: normocephalic, Atraumatic Eyes: normal inspection, EOMI Neck: supple, Trachea midline Respiratory/Chest: Normal breath sounds, CTA Cardiovascular: S1, S2, + murmur Abdomen/GI:Soft, Non tender, Bowel sounds present Extremities/Musculoskelatal:normal inspection, no edema Neurologic/Psych:AAOX3, grossly no focal neurological deficits Skin: normal color, warm Results & Data Results & Data ([facility]) Vital Signs (Past 12 Hours) Vital Signs Temp Pulse Pulse Resp BP Pulse Ox 05/09/20 15:45 36.6 C 62 18 132/83 97 05/09/20 11:30 36.6 C 64 18 94/63 L 97 05/09/20 08:05 36.4 C L 60 18 122/78 98 05/09/20 08:00 56 L Laboratory Results Short CBC 05/09/20 Range/Units 08:14 WBC 9.44 (4.8-10.8) K/uL Hgb 12.7 (12.0-16.0) g/dL Hct 39.5 (37-47) % Plt Count 250 (130-400) K/uL BMP 05/09/20 05/09/20 08:14 15:18 Sodium 137 137 Potassium 5.3 H 5.5 H Chloride 111 H 112 H Carbon Dioxide 21 20 L BUN 51 H 56 H Creatinine 1.61 H 1.84 H Glucose 150 H 140 H Calcium 9.4 9.3
[2020-05-09] MEDS: SODIUM BICARBONATE 650 MG TAB PO SCH (20:32)
[2020-05-10 06:55] LABS: INR 1.6 (0.9-1.1); Prothrombin Time 16.3 Seconds (9.0-12.0)
[2020-05-10 07:22] LABS: BUN Creatinine Ratio 29.7 (10-20); Calcium 9.7 mg/dl (8.5-10.1); Creatinine Clr Calc Pharmacy 21.3 ml/min; Est GFR (African American) 23.6; Est GFR (Non-African American) 20.3; Potassium 4.9 mmol/L (3.5-5.1)
[2020-05-10 07:25] LABS: Phosphorus 3.5 mg/dl (2.5-4.9)
[2020-05-10] MEDS: INSULIN ASPART 100 UNITS/ML 3 ML PEN SC SCH ×4 (08:22→20:43)
[2020-05-10] MEDS: CHOLECALCIFEROL 1,000 UNITS 25 MCG TAB PO SCH (08:25)
[2020-05-10] MEDS: SODIUM BICARBONATE 650 MG TAB PO SCH ×2 (08:25→20:43)
[2020-05-10] MEDS: allopurinoL 100 MG TAB PO SCH (08:25)
[2020-05-10] MEDS: PANTOprazole 40 MG TAB PO SCH (08:25)
[2020-05-10] MEDS: METOPROLOL TARTRATE 25 MG TAB PO SCH ×2 (08:26→20:45)
[2020-05-10] MEDS: ASPIRIN 81 MG ECTAB PO SCH (08:26)
[2020-05-10] MEDS: FERROUS SULFATE 325 MG TAB PO SCH (08:26)
[2020-05-10] MEDS: ATORVASTATIN 40 MG TAB PO SCH (08:26)
[2020-05-10] MEDS ORDERED: SODIUM CHLORIDE 0.9% 1000ML 1,000 ML IV SCH (08:45)
--- NOTE | 2020-05-10 10:08 | Nephrology Progress Note ---
Date of Service May 10, 2020 Assessment & Plan (1) Hyperkalemia: * Hyperkalemia likely related to ARB therapy * Stop Olmesartan * Potassium has corrected. Advised patient to stay off ARB therapy, follow a low potassium diet and avoid salt substitutes * Continue low dose NaHCO3 supplement * Monitor PRP, I&O's * If discharge is anticipated, please have patient follow up in Nephrology office in 7 - 14 days . Remind her to have PRP completed 24 hours prior to OV. Order has been placed in EMR (2) Acute kidney injury: * Mild MARISSA likely related to diuretic administration * Stop furosemide * Will provide 1 L NS * Recheck PRP at 1500 hrs today. If Cr < or = 2.0 patient may be discharged from a Nephrology perspective w/ follow up in our office in 7 - 14 days (3) CKD (chronic kidney disease), stage III: * Baseline Cr 1.7 (4) Melena: * h/o gastric polyps * Supratherapeutic INR - corrected * FOBT - pending * On oral iron therapy Admission and Anticipated Discharge Date Admission Date: May 07, 2020 Subjective Mrs. Ricks was seen & examined in her hospital room this morning. She denies abdominal pain or diarrhea. Mrs. Ricks received education on a low potassium diet. She voices no new medical concerns. Review of Systems Constitutional: no fever Eyes: no problem reported Ear, Nose, Mouth, Throat: no problem reported Respiratory: no dyspnea Cardiovascular: no chest pain and no edema Gastrointestinal: no abdominal pain, no vomiting and no diarrhea/loose stools Genitourinary: no dysuria and no hematuria Musculoskeletal: no back pain Integumentary: no rash Neurologic: no dizziness and no confusion Physical Exam Constitutional: not in distress Eyes: PERRL, conjunctivae normal, anicteric sclerae ENMT: external ear and nose normal, oropharynx normal Neck: trachea midline, no thyromegaly Respiratory: normal respiratory effort, lungs clear to auscultation Cardiovascular: RRR, no murmur, no edema Gastrointestinal (Abdomen): normal bowel sounds, soft, nontender, no hepatosplenomegaly Musculoskeletal: Extremities: no cyanosis Skin: no rashes, warm and dry Neurologic: awake; not confused Results & Data ([facility]) Vital Signs (Past 12 Hours) Vital Signs Temp Pulse Pulse Resp BP Pulse Ox 05/10/20 08:05 36.8 C 64 18 121/73 97 05/10/20 07:44 65 05/10/20 03:10 36.5 C 61 18 117/78 97 05/09/20 23:56 52 L 05/09/20 23:23 36.4 C L 60 16 113/74 93 Laboratory Results Laboratory Tests 05/10/20 05/10/20 06:12 06:12 INR 1.6 H Sodium 137 Potassium 4.9 Chloride 110 H Carbon Dioxide 19 L BUN 69 H Creatinine 2.32 H D PG Care Time/CCT Total # of Minutes Spent Total Time Spent with Patient: Total time spent is greater than 50% in coordination of care (as documented) at patient's floor/unit and/or counseling patient: Coding Level of Care Code 74362 Subseq Hosp Care Lvl 3 Diagnoses Hyperkalemia E87.5 Acute kidney injury N17.9 CKD (chronic kidney disease), stage III N18.30 Melena K92.1
[2020-05-10 14:29] LABS: BUN Creatinine Ratio 29.9 (10-20); Calcium 8.8 mg/dl (8.5-10.1); Creatinine Clr Calc Pharmacy 22.9 ml/min; Est GFR (African American) 25.7; Est GFR (Non-African American) 22.2; Potassium 4.3 mmol/L (3.5-5.1)
[2020-05-10 14:41] LABS: Beta-Hydroxybutyrate 0.66 mg/dl (0.2-2.81)
[2020-05-10] MEDS ORDERED: WARFARIN SOD 2.5 MG TAB PO SCH (16:00)
[2020-05-10] MEDS: ACETAMINOPHEN 325 MG TAB PO PRN ×2 (16:12→22:07)
--- NOTE | 2020-05-10 17:57 | Hospitalist Progress Note ---
Date of Service May 10, 2020 Assessment & Plan (1) Hyperkalemia: Hyperkalemia Likely secondary to olmesartan Potassium levels:5.9>>5.2>5.5>4.3 Olmesartan held Low potassium diet Received patiromer, Lasix, Bicarbonate Monitor electrolytes Appreciate nephrology input Improved Abnormal UA Urine culture no growth UTI ruled out Black stools Likely secondary to iron supplements H/O Reflux esophagitis, Moderate diverticulosis, Internal hemorrhoid Check fecal occult--pending Monitor CBC (2) Diarrhea: Diarrhea CT ABD: No evidence of bowel obstruction. No evidence of free air. No renal, ureteral, or bladder calculi identified. No evidence of acute diverticulitis. No evidence of acute appendicitis. Stool Culture: Negative DD: ? Secondary to Metformin, Also R/O GI bleed Fecal Occult pending Diarrhea resolved Moitor Mild Leukocytosis No obvious source of infection WBC count normalized Monitor (3) HTN (hypertension): BP Variable continue metoprolol Held olmesartan as above Monitor (4) CKD (chronic kidney disease), stage III: Acute Kidney Injury on CKD III Baseline Cr:1.7 Cr 2.16 today Monitor renal function Received IV fluids Avoid Nephrotoxic agents as able (5) History of pulmonary embolism: (6) History of DVT (deep vein thrombosis): H/O PE, DVT Supratherapeutic INR INR:6.1>>5.4>2.4>1.6 Consider to reverse INR if fecal cultures positive Resumed Coumadin-give 2.5 mg today Monitor PT/INR (7) DM type 2 (diabetes mellitus, type 2): Hgb A1c 7.9 04/2020 Hold oral agents Continue NovoLog per protocol while hospitalized (8) DVT prophylaxis: Coumadin Admission and Anticipated Discharge Date Admission Date: May 07, 2020 Subjective Patient is seen and examined at bedside Symptomatically feels well Creatinine levels elevated today Potassium levels normalized No new complaints Denies chest pain, SOB, dizziness, nausea, abdominal pain INR is subtherapeutic Review of Systems Review of Systems: All systems reviewed & are unremarkable except as noted in HPI & below Physical Exam Physical Exam: Physical Exam: Vitals signs as noted above General Appearance:Moderately built and nourished, no apparent distress Head: normocephalic, Atraumatic Eyes: normal inspection, EOMI Neck: supple, Trachea midline Respiratory/Chest: Normal breath sounds, CTA Cardiovascular: S1, S2, + murmur Abdomen/GI:Soft, Non tender, Bowel sounds present Extremities/Musculoskelatal:normal inspection, no edema Neurologic/Psych:AAOX3, grossly no focal neurological deficits Skin: normal color, warm Results & Data Results & Data ([facility]) Vital Signs (Past 12 Hours) Vital Signs Temp Pulse Pulse Resp BP Pulse Ox 05/10/20 15:54 36.8 C 66 20 137/80 93 05/10/20 08:05 36.8 C 64 18 121/73 97 05/10/20 07:44 65 Laboratory Results BMP 05/10/20 05/10/20 06:12 13:52 Sodium 137 135 L Potassium 4.9 4.3 Chloride 110 H 108 H Carbon Dioxide 19 L 20 L BUN 69 H 65 H Creatinine 2.32 H D 2.16 H Glucose 154 H 306 H* Calcium 9.7 8.8
[2020-05-10] MEDS: INSULIN GLARGINE SOLOSTAR 100 UNITS/ML 3 ML PEN SC SCH (20:42)
[2020-05-11 07:36] LABS: BUN Creatinine Ratio 32.3 (10-20); Calcium 9.3 mg/dl (8.5-10.1); Creatinine Clr Calc Pharmacy 24.5 ml/min; Est GFR (African American) 27.9; Potassium 4.1 mmol/L (3.5-5.1)
[2020-05-11 07:44] LABS: INR 1.6 (0.9-1.1)
[2020-05-11] MEDS: CHOLECALCIFEROL 1,000 UNITS 25 MCG TAB PO SCH (08:05)
[2020-05-11] MEDS: METOPROLOL TARTRATE 25 MG TAB PO SCH (08:05)
[2020-05-11] MEDS: SODIUM BICARBONATE 650 MG TAB PO SCH (08:05)
[2020-05-11] MEDS: ATORVASTATIN 40 MG TAB PO SCH (08:07)
[2020-05-11] MEDS: allopurinoL 100 MG TAB PO SCH (08:07)
[2020-05-11] MEDS: ASPIRIN 81 MG ECTAB PO SCH (08:07)
[2020-05-11] MEDS: PANTOprazole 40 MG TAB PO SCH (08:07)
[2020-05-11] MEDS: FERROUS SULFATE 325 MG TAB PO SCH (08:07)
[2020-05-11] MEDS: ACETAMINOPHEN 325 MG TAB PO PRN (08:10)
[2020-05-11] MEDS: INSULIN ASPART 100 UNITS/ML 3 ML PEN SC SCH ×2 (08:12→12:08)
[2020-05-11] MEDS: INSULIN GLARGINE SOLOSTAR 100 UNITS/ML 3 ML PEN SC SCH (08:15)
--- NOTE | 2020-05-11 12:43 | Nephrology Progress Note ---
Date of Service May 11, 2020 Assessment & Plan (1) Acute kidney injury: Acute kidney injury and hyperkalemia with history of stage III CKD. Renal function slightly improved to creatinine 2.0, electrolyte acceptable. Blood pressure, urine output, volume status acceptable. -- Okay to be discharged from Nephrology standpoint, patient was advised to keep well hydrated after discharge, avoid NSAIDs. -- She should stay off of TRUDY-inhibitor/ARB on discharge, avoid potassium supplement and follow low potassium diet. -- Please schedule for follow-up with Dr. Matthews at the [facility] in next 2-3 weeks, she should have lab done early next week and results should be forwarded to for further management. Will follow while inpatient. (2) Hyperkalemia: (3) CKD (chronic kidney disease), stage III: Admission and Anticipated Discharge Date Admission Date: May 07, 2020 Emi Wong was seen and evaluated in her room this morning. Overall she is feeling well, denies any symptom. Has been voiding normally. Blood pressure controlled. Renal function slightly improved to creatinine 2.0, electrolyte acceptable. Review of Systems Review of Systems: All systems reviewed & are unremarkable except as noted in HPI & below Physical Exam Constitutional: well developed and well nourished; no acute distress Respiratory: normal respiratory effort, lungs clear to auscultation Cardiovascular: RRR, no murmur, no edema Neurologic: moves all extremities and awake; not confused Psychiatric: A+Ox3, euthymic affect Results & Data ([facility]) Vital Signs (Past 12 Hours) Vital Signs Temp Pulse Resp BP Pulse Ox 05/11/20 11:58 36.5 C 63 18 122/83 94 05/11/20 08:21 36.7 C 62 18 108/68 95 PG Care Time/CCT Total # of Minutes Spent Total Time Spent with Patient: Total time spent is greater than 50% in coordination of care (as documented) at patient's floor/unit and/or counseling patient: Coding Level of Care Code 36815 Subseq Hosp Care Lvl 3 Diagnoses Acute kidney injury N17.9 Hyperkalemia E87.5 CKD (chronic kidney disease), stage III N18.30
--- NOTE | 2020-05-11 13:31 | Hospitalist Progress Note ---
Date of Service May 11, 2020 Assessment & Plan (1) Hyperkalemia: Hyperkalemia Likely secondary to olmesartan Potassium levels:5.9>>5.2>5.5>4.3>4.1 Olmesartan discontinued--DC upon discahrge as well Low potassium diet Received patiromer, Lasix, Bicarbonate Monitor electrolytes Appreciate nephrology input Needs follow up with Nephrology upon discharge Abnormal UA Urine culture no growth UTI ruled out Black stools Likely secondary to iron supplements H/O Reflux esophagitis, Moderate diverticulosis, Internal hemorrhoid Monitor CBC Hb stable (2) Diarrhea: Diarrhea CT ABD: No evidence of bowel obstruction. No evidence of free air. No renal, ureteral, or bladder calculi identified. No evidence of acute diverticulitis. No evidence of acute appendicitis. Stool Culture: Negative DD: ? Secondary to Metformin Diarrhea resolved Monitor Mild Leukocytosis No obvious source of infection WBC count normalized Monitor (3) HTN (hypertension): BP stable continue metoprolol Discontinued olmesartan as above Monitor (4) CKD (chronic kidney disease), stage III: Acute Kidney Injury on CKD III Baseline Cr:1.7 Cr 2.16 > 2.0 Monitor renal function Received IV fluids Avoid Nephrotoxic agents as able Encourage to drink oral fluids (5) History of pulmonary embolism: (6) History of DVT (deep vein thrombosis): H/O PE, DVT Supratherapeutic INR INR:6.1>>5.4>2.4>1.6 Consider to reverse INR if fecal cultures positive Resumed Coumadin-give 2.5 mg today Monitor PT/INR (7) DM type 2 (diabetes mellitus, type 2): Hgb A1c 7.9 04/2020 Hold oral agents Continue NovoLog per protocol while hospitalized (8) DVT prophylaxis: Coumadin Admission and Anticipated Discharge Date Admission Date: May 07, 2020 Subjective Patient is seen and examined at bedside No new complaints Renal function continues to improve Denies chest pain, SOB, dizziness, nausea, abdominal pain Eager to get discharged Review of Systems Review of Systems: All systems reviewed & are unremarkable except as noted in HPI & below Physical Exam Physical Exam: Physical Exam: Vitals signs as noted above General Appearance:Moderately built and nourished, no apparent distress Head: normocephalic, Atraumatic Eyes: normal inspection, EOMI Neck: supple, Trachea midline Respiratory/Chest: Normal breath sounds, CTA Cardiovascular: S1, S2, + murmur Abdomen/GI:Soft, Non tender, Bowel sounds present Extremities/Musculoskelatal:normal inspection, no edema Neurologic/Psych:AAOX3, grossly no focal neurological deficits Skin: normal color, warm Results & Data Results & Data ([facility]) Vital Signs (Past 12 Hours) Vital Signs Temp Pulse Resp BP Pulse Ox 05/11/20 11:58 36.5 C 63 18 122/83 94 05/11/20 08:21 36.7 C 62 18 108/68 95 Laboratory Results [facility] 05/10/20 05/11/20 13:52 06:37 Sodium 135 L 139 Potassium 4.3 4.1 Chloride 108 H 112 H Carbon Dioxide 20 L 20 L BUN 65 H 65 H Creatinine 2.16 H 2.02 H Glucose 306 H* 192 H Calcium 8.8 9.3
--- NOTE | 2020-05-11 14:00 | Discharge Summary ---
Date of Service May 11, 2020 Admission HPI Per Admitting Provider 74-year-old female with PMH DM type II, gout, HTN, aortic stenosis, history of DVT and PE anticoagulated on Coumadin, and other problems listed below who was referred to the ED by PCP for evaluation of hyperkalemia. Patient reports she was started on Metformin in January. Reports that shortly after starting the medication, she developed diarrhea. Metformin was changed to extended release and patient reports the diarrhea resolved. Reports she again developed diarrhea about 2 weeks ago. Shortly after, she noted that her stools were black in color. Patient reports having up to 4 diarrheal episodes per day. Denies bright red bleeding per rectum. No abdominal pain, nausea, vomiting. Patient had outpatient labs drawn yesterday that showed potassium 5.9. Repeat labs today show potassium 6.3. Patient was referred to the ED for further evaluation and treatment. Patient denies chest pain shortness of breath. No lightheadedness, dizziness, diaphoresis, syncopal events. Denies fevers and chills. No urinary symptoms. In the ED, K+ 5.8. Patient is hemodynamically stable. Stool for C. difficile and Hemoccult are currently pending. INR 6.1. Hgb stable at 12.8. ED discussed the case with Dr. Matthews with nephrology. He recommended 1 dose of patirmoer. Admission Exam Per Admitting Provider Physical Exam Constitutional: WD/WN, vitals as above Eyes: PERRL, conjunctivae normal, anicteric sclerae ENMT: external ear and nose normal, oropharynx normal Respiratory: normal respiratory effort, lungs clear to auscultation Cardiovascular: Rate/Rhythm: regular rate and regular rhythm Heart Sounds: + murmur (Systolic, grade 3/6) Vessels: normal peripheral pulses Extremities: no edema Gastrointestinal (Abdomen): normal bowel sounds, soft, nontender, no hepatosplenomegaly Musculoskeletal: no cyanosis or clubbing, extremities motor strength 5/5 Skin: no rashes, warm and dry Neurologic: PERRL, EOMI, accommodation nl, no face palsy, no dysarthria Psychiatric: A+Ox3, euthymic affect Principal Diagnosis Hyperkalemia Acute kidney injury Diarrhea Supratherapeutic INR Discharge Data Allergies Allergy/AdvReac Type Severity Reaction Status Date / Time No Known Allergies Allergy Verified 05/07/20 16:15 Consultations 05/07/20 17:31 ED Decision to Admit Stat 05/07/20 18:35 Consult Nephrology Routine Procedures Performed CT ABD: No evidence of bowel obstruction. No evidence of free air. No renal, ureteral, or bladder calculi identified. No evidence of acute diverticulitis. No evidence of acute appendicitis. Ordered Studies 05/07/20 18:14 CT abd pelvis oral con only Routine Hospital Course (1) Hyperkalemia: Hyperkalemia Likely secondary to olmesartan Potassium levels:5.9>>5.2>5.5>4.3>4.1 Olmesartan discontinued--DC upon discahrge as well Low potassium diet Received patiromer, Lasix, Bicarbonate Monitor electrolytes Appreciate nephrology input Needs follow up with Nephrology upon discharge Abnormal UA Urine culture no growth UTI ruled out Black stools Likely secondary to iron supplements H/O Reflux esophagitis, Moderate diverticulosis, Internal hemorrhoid Monitor CBC Hb stable (2) Diarrhea: Diarrhea CT ABD: No evidence of bowel obstruction. No evidence of free air. No renal, ureteral, or bladder calculi identified. No evidence of acute diverticulitis. No evidence of acute appendicitis. Stool Culture: Negative DD: ? Secondary to Metformin Diarrhea resolved Monitor Mild Leukocytosis No obvious source of infection WBC count normalized Monitor (3) HTN (hypertension): BP stable continue metoprolol Discontinued olmesartan as above Monitor (4) CKD (chronic kidney disease), stage III: Acute Kidney Injury on CKD III Baseline Cr:1.7 Cr 2.16 > 2.0 Monitor renal function Received IV fluids Avoid Nephrotoxic agents as able Encourage to drink oral fluids (5) History of pulmonary embolism: (6) History of DVT (deep vein thrombosis): H/O PE, DVT Supratherapeutic INR INR:6.1>>5.4>2.4>1.6 Consider to reverse INR if fecal cultures positive Resumed Coumadin-give 2.5 mg today Monitor PT/INR (7) DM type 2 (diabetes mellitus, type 2): Hgb A1c 7.9 04/2020 Hold oral agents Continue NovoLog per protocol while hospitalized (8) DVT prophylaxis: Coumadin Total Time Total Time Spent Total Time Spent (In Minutes): 40 minutes Total Time Includes: Examination of the Patient, Discharge Planning, Medication Reconciliation, Communication With Other Providers and Other Discharge Plan Discharge Items Patient Disposition: Home - Self-Care Reason For Visit: HYPERKALEMIA Discharge Diagnosis: Hyperkalemia Acute kidney injury Diarrhea Supratherapeutic INR Activity: Resume your previous activity Exercise/Sports: Gradually increase as tolerated Non-emergency contact: Primary Care Provider and Crime Data Specialist Call non-emergency contact if: you have any medication questions, your symptoms worsen, your pain is not controlled, your pain is worsening, your pain is unusual for you, your pain is concerning for you and you have a fever Follow-up/Referrals: Austin Matthews MD [Physician] - (in 2 weeks) Madhuri Galicia DO [Primary Care Provider] - (Date & Time 05/14/2020 11:50 AM Provider Madhuri Galicia DO Department Internal Medicine [facility] ) Diet: Carb Consistent or DM2 and Low Potassium (2gm) Ambulatory Orders: Basic Metabolic Panel (Routine) Timeframe: 1 Week Location: Determined by Patient Ordered By: Juan Francisco Li Attending Provider Instructions: Follow up with your Primary Care Physician on 05/14/2020 11:50 AM Follow up with your Crime Data Specialist in 2 weeks as advised. Please call for appointment Follow up with [facility] ( in 2 days) for managing of your Coumadin dosing Your PT/INR is 1.6 today. Take 2.5 mg Coumadin today Medication Changes: Stop taking Olmesartan (Benicar) as recommended by your Crime Data Specialist Take sodium bicarbonate as prescribed for 3 days and STOP Continue low potassium diet as recommended until further instructions by her metallurgical engineering teacher. Get Blood Test (basic metabolic panel) in 1 week and follow up with your Crime Data Specialist as advised If recurrence of diarrhea--discuss with your physician regarding Metformin--for alternate medication as it could be contributing to your symptoms Seek immediate medical attention if your symptoms reoccur or worsen Pending Studies at Discharge: No Stand-Alone Forms: My 5 Minutes, Smoking Cessation Medications and DC Order Prescriptions: New sodium bicarbonate 650 mg Tablet 650 mg PO BID Qty: 6 RF: 0 Continued cholecalciferol (vitamin D3) 2,000 unit tablet 2,000 units PO DAILY RF: 0 metoprolol tartrate 25 mg tablet 25 mg PO BID Qty: 180 RF: 0 glipizide 5 mg tablet 2.5 mg PO BID RF: 0 docusate sodium 100 mg tablet 100 mg PO BID PRN (Reason: Constipation) RF: 0 warfarin 2.5 mg tablet 2.5 mg PO QPM RF: 0 allopurinol 100 mg tablet 100 mg PO DAILY RF: 0 colestipol 1 gram tablet 1 gm PO BID RF: 0 atorvastatin 80 mg tablet 80 mg PO DAILY Qty: 30 RF: 0 triamcinolone acetonide 0.1 % cream 1 appln topical BID PRN (Reason: Skin Irritation) RF: 0 omega-3 acid ethyl esters 1 gram capsule 4 cap PO DAILY RF: 0 aspirin 81 mg Tablet,Delayed Release (Dr/Ec) 81 mg PO DAILY RF: 0 pantoprazole 20 mg Tablet,Delayed Release (Dr/Ec) 20 mg PO DAILY RF: 0 ferrous sulfate 325 mg (65 mg iron) Tablet 325 mg PO DAILY RF: 0 metformin 500 mg Tablet Extended Release 24 Hr 500 mg PO BID RF: 0 Discontinued olmesartan [Benicar] 40 mg Tablet 40 mg PO DAILY RF: 0 Discharge Orders: Discharge Order (Routine); Ordered 05/11/20 Ordered By: Juan Francisco Royal Admission Data Admit Date/Time: 05/07/20 16:57 Attending Provider: Juan Francisco Royal Admit Provider: Adi Garrett Primary Care Provider: Madhuri Galicia Other Providers: Adi Garrett ; Austin Matthews Other Interventions: Discharge Summary Assessment (RN) Last Done: 05/11/20 14:31
== END 2020-05-11 14:52 | disposition home or self-care (01) | DRG 641 ==
LOC: ED 13:52 → SUATTDRO 16:57 → 2N 16:57

== ENCOUNTER 2023-07-12 10:55 | Inpatient (IN) ==
--- OUTSIDE RECORDS SUMMARY | 2023-07-12 11:04 | External Medical Summary | Summary of Care ---
Author Name Unknown Organization [facility] Address [address] [place] [address] Phone [phone] Care Team Providers Care Air Boatswain Name Role Phone Madhuri Galicia DO Primary Care Provider [phone] Reason for Visit * Reason Onset Date Comments Dosage Adjustment Via Phone ([facility]) Encounter Details Date Type Department Care Team (Late st Contact Info) Description 07/10/2023 Telephone Pharmacy Call Center [address] [place] [address] Anu Damon, [facility] [address] [place] [address] Dosage Adjustment Via Phone ([facility]) Allergies Active Allergy Reactions Criticality Noted Date Comments Ben Inhibitors 12/05/2012- 2009 Stated that she does not have an allergy to Ben Inhibitors. 06/08/16 States she does not have allergy to Ben inhibitors 03/29/2019 documented as of this encounter (statuses as of 07/10/2023) Medications Medication Sig Dispensed Refills Start Date End Date Status ASPIRIN EC 81 MG PO TBEC 1 TABLET DAILY 30 Tab 0 01/30/2010 Active FISH OIL 1000 MG PO CAPS four capsules by mouth daily 0 Active Cholecalciferol (VITAMIN D) 1000 units Tablet Take 1 Tablet by mouth in the morning. 0 Active Olmesartan Medoxomil 5 MG Oral Tablet Take 5 mg by mouth in the morning and 5 mg before bedtime. 0 05/09/2021 Active Contour Next Test In Vitro Strip (Glucose Blood)Indications:Ty pe 2 diabetes mellitus with hemoglobin A1c goal of less than 8.0% (HCC) Use to test blood sugar once a day DXe11.9 100 Strip 3 10/07/2021 Active High Potency Iron 65 MG Oral Tablet Take 65 mg by mouth in the morning. One daily. 0 Active Triamcinolone Acetonide 0.1 % External Cream (Aristocort)Indicati ons:Eczema, unspecified type Apply topically to affected area 2 times a day. To affected area for up to two weeks. 60 g 5 07/15/2022 Active Colestipol HCl 1 GM Oral Tablet (Colestid) Take 1 Tablet by mouth in the morning and 1 Tablet before bedtime. 180 Tablet 3 07/15/2022 Active Alendronate Sodium 70 MG Oral Tablet (Fosamax) Take 1 Tablet by mouth once a week. with 8 oz. water 30 minutes before first meal of the day. Remain upright for 30 min after taking tablet. 5 Tablet 11 01/26/2023 Active Allopurinol 100 MG Oral Tablet (Zyloprim)Indication s:Gout TAKE 1 TABLET IN THE MORNING 90 Tablet 3 04/16/2023 Active metFORMIN HCl ER 500 MG Oral Tablet Extended Release 24 Hour (Glucophage XR)Indications:Type 2 diabetes mellitus with hemoglobin A1c goal of less than 8.0% (HCC) Take 1 Tablet by mouth in the morning and 1 Tablet before bedtime. 180 Tablet 3 04/16/2023 Active Pantoprazole Sodium 20 MG Oral Tablet Delayed Release (Protonix) TAKE 1 TABLET IN THE MORNING 90 Tablet 1 04/16/2023 Active Metoprolol Tartrate 25 MG Oral Tablet (Lopressor) Take 1 Tablet by mouth in the morning and 1 Tablet before bedtime. 180 Tablet 3 04/16/2023 Active Trulicity 1.5 MG/0.5ML Subcutaneous Solution Pen-injector (Dulaglutide)Indicat ions:Type 2 diabetes mellitus with hemoglobin A1c goal of less than 8.0% (HCC) Inject 1.5 mg under the skin once a week. 6 mL 3 06/08/2023 Active Enoxaparin Sodium 60 MG/0.6ML Injection Solution Prefilled Syringe (Lovenox) Inject 40 mg under the skin in the morning and 40 mg before bedtime. At 8am and 8pm.. 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 Noted on imaging 05/2021. May need follow up imaging. 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 Overview: ICD-10 update of inactive term Primary hypercoagulable state 11/09/2009 Vitamin D deficiency 03/29/2009 Venous thrombosis 02/17/2008 Overview: Right leg Congenital hiatus hernia Hyperlipidemia with target LDL less than 70 Overview: ICD-10 update of inactive term documented as of this encounter (statuses as of 07/10/2023) Resolved Problems Problem Noted Date Diagnosed Date Resolved Date Chronic kidney disease, stage 3b 12/31/2020 01/26/2023 Overview: Per CKD protocol Diabetes mellitus with stage 3 chronic kidney disease 10/28/2020 11/28/2020 Overview: Per CKD protocol Type 2 diabetes mellitus wit h stage 3 chronic kidney disease, without long-term current use of insulin 11/01/2018 10/31/2020 Overview: Per CKD protocol Benign hypertension with chr onic kidney disease, stage III 04/22/2018 11/28/2020 Overview: Per CKD protocol Undiagnosed cardiac murmurs 09/10/2016 09/29/2017 Breast cancer screening 03/03/201605/20 Menopause 03/03/2016 06/08/2016 Encounter for screening mamm ogram for malignant neoplasm of breast 03/03/2016 06/08/2016 Abnormal mammogram 05/16/2014 6 Vitamin D deficiency 04/27/2014 016 Preop examination 12/28/2013 06/08/2016 Abnormal mammogram 10/25/2013 6 Type 2 diabetes mellitus wit h hemoglobin A1c goal of 7.0%-8.0% 10/25/2013 01/08/2015 Overview: ICD-10 update of inactive term Preop examination 03/21/2013 10/24/2013 Type 2 diabetes mellitus wit h hemoglobin A1c goal of less than 7.0% 03/21/2013 10/25/2013 Overview: ICD-10 update of inactive term Abnormal EKG 08/17/2012 09/29/2017 Preop examination 07/06/2012 12/19/2012 DM type 2, not at goal 07/06/201201/03 Pain in right foot 03/08/2012 3 Pain in right wrist 09/10/2011 12/20/19 13 Secondary thrombocytopenia 01/25/2010 1 08/08/2015 Overview: ICD-10 update of inactive term Septicemia 01/25/2010 06/08/2016 Intestinal infection due to Clostridium difficile 01/21/2010 04/28/2010 Epistaxis 01/20/2010 04/28/2010 Pneumonia due to organism 01/19/2010 ARF (acute renal failure) 01/19/2010 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 ICD-10 update of inactive term Hypoglycemia 11/18/2009 11/19/2009 ACTIVE CASE MANAGEMENT 11/18/200905/05 Overview: Stefanie Powell RN Outpatient Dog Obedience InstructorSalesperson Floor Coverings number [phone] Fax number [phone] Hypotension 11/08/2009 12/19/2012 Follow-up examination, follo wing other surgery 11/08/2009 12/19/2012 Diaphragmatic hernia 11/08/2009 016 Gastric ulcer 11/08/2009 06/08/2016 Other joint derangement, not elsewhere classified, shoulder region 08/16/2009 12/19/2012 Overview: Old posterior labral tear Synovitis of shoulder 08/16/20092012 Shoulder impingement 08/16/2009 013 Shoulder joint pain 08/16/2009 11/20/19 10 HTN, goal below 130/80 08/14/200907/15 Overview: Per HTN Taxonomy. Dyslipidemia, goal LDL below 100 06/27/2009 10/24/2013 Overview: Per Lipid Taxonomy. Type 2 diabetes mellitus wit h hemoglobin A1c goal of less than 7.0% 05/16/2009 07/06/2012 Overview: Per Diabetes Taxonomy. ICD-10 update of inactive term Kidney disease, chronic, sta ge III (GFR 30-59 ml/min) 05/16/2009 05/02/2018 Overview: Had ARF in 01/2010 - unknown definite cause, ? D/t sepsis. Required HD for a time, currently off tx, stable. Note that kidney dz is NOT related to her DM. DM type 2 causing renal disease 03/29/2009 05/16/2009 Overview: Per Diabetes Taxonomy. Intestinal infection due to Clostridium difficile 11/20/2008 03/29/2009 ADVANCE DIRECTIVE INFORMATION 03/08/2008 09/29/2017 Overview: No, Advance Directive brochure given to patient. Diaphragmatic hernia 03/08/2008 014 Pulmonary embolus 02/17/2008 03/12/2017 Anticoagulation management encounter 02/17/2008 08/20/2008 [facility] current use of ant icoagulant therapy 02/17/2008 08/20/2008 Overview: ICD-10 update of inactive term Other specified gastritis wi thout mention of hemorrhage 02/10/2008 06/08/2016 Overview: mild chronic Other lymphedema 03/22/2007 12/19/2012 Benign neoplasm of colon 02/24/200709/2012 Overview: adenomatous tissue-repeat colonoscopy in 3 years Benign neoplasm of colon 02/24/200709/2012 Overview: adenomatous tissue-repeat colonoscopy in 3 years LOC PRIM OSTEOARTH-ANKLE 01/14/200502/2014 Arthrodesis status 01/14/2005 6 Type 2 diabetes mellitus wit h hemoglobin A1c goal of less than 7.0% 08/10/2002 05/16/2009 Overview: Per Diabetes Taxonomy. ICD-10 update of inactive term PURE HYPERCHOLESTEROLEM 12/03/200006/18 Overview: Per Lipid Taxonomy. HTN, goal below 140/90 12/03/200008/14 Overview: Per HTN Taxonomy. Major depressive disorder Overview: resolved ICD-10 update of inactive term Phlebitis and thrombophlebit is of other deep vessels of lower extremities 12/19/2012 Peptic ulcer 12/19/2012 Overview: in hiatal hernia, Hgb 5.5! Type 2 diabetes mellitus wit h hemoglobin A1c goal of less than 7.0% 10/24/2013 Overview: ICD-10 update of inactive term documented as of this encounter (statuses as of 07/10/2023) Immunizations Name Administration Dates Next Due COVID-19 mRNA, LNP-s, No Pre serve, 2-Dose Series (PandoDaily) 05/27/2021 COVID-19, LNP-s, No Preserve , Rodrick-sucrose, Ages 12+ (Pfizer) 02/03/2022 COVID-19, MRNA-LNP, 23-24, P F, 30 MCG/0.3 mL, 12 YRS AND ABOVE, IM ([employer]) 04/27/2023 Covid-19 Ad26, Single Dose (Hintsoft/Tethis S.p.A&Tethis S.p.A) 10/25/2020 Covid-19, Mrna, Lnp-s, Pf, B ivalent, 30 Mcg, IM, 12 yrs and above (PandoDaily) 06/09/2022 H1N1 2009 Influenza, IM 08/02/2009 Pneumococcal Conjugate Vacc, 13 Valent (Prevnar) 03/06/2015,12/21/2014 Pneumococcal Polysaccharide PPV23 (Pneumovax) 06/08/2016 Season Influenza, Quad, PF, Adjuvanted, 65+ Yrs, IM (FLUAD) 03/30/2020 Seasonal Influenza, PF, 6 M & above, IM , (FluLaval or Fluzone) 03/23/2018 Seasonal Influenza, Quadriva lent Hd (Fluzone Hd) 04/27/2023,06/04/2022,05/05/2021 Seasonal Influenza, Quadriva lent, No Preserve, IM 03/29/2017,04/21/2016 Seasonal Influenza, Split, I IV3, With Preserve, Inj 03/06/2015,04/04/2014,04/12/2013,03/30,04/29/2011,04/15/2010,03/21/2009 ,04/23/2008,05/18/2007 Seasonal Influenza, Trivalen t, Adjuvanted, 65+ yrs 03/29/2019 Seasonal Influenza, Trivalen t, High Dose, No Preserve, IM 03/06/2015 TDAP (age 10 and older)(Boostrix) 04/26/2019 TDAP (age 11 and older)(Adacel) 02/09/2008 Varicella Zoster Vaccine (Adult) 07/05/2008 Zoster Vaccine Recombinant (Shingrix) 05/29/2019 ,03/29/2019 documented as of this encounter Social History Tobacco Use Types Packs/Day Years Used Date Smoking Tobacco: Never Smokeless Tobacco: Never Alcohol Use Standard Drinks/Week Comments No 0 (1 standard drink = 0.6 oz pur e alcohol) PHQ-2 Answer Date Recorded PHQ Adult Total Score 2 06/08/2023 Hunger Vital Sign Answer Date Recorded Within the past 12 months, y ou worried that your food would run out before you got the money to buy more. Never true 06/08/20 23 Within the past 12 months, t he food you bought just didn't last and you didn't have money to get more. Never true 06/08/2023 Sex and Gender Information Value Date Recorded Sex Assigned at Female 03/29/2019 12:31 PM EDT Gender Identity Female 03/29/2019 12:31 PM EDT Sexual Orientation Straight 06/04/2022 1: 26 PM EST Job Start Date Occupation Industry Not on file Not on file Not on file documented as of this encounter Miscellaneous Notes * Telephone Encounter - Anu Damon RPh - 07/10/2023 9:40 AM EST Called patient to collect more information about her voicemail. Patient call to inform clinic aboutpain bruise. Patient is currently on 40mg of lovenox twice daily. Patient stated that this is the first time she has the painful bruise and has been taking Lovenox for over 2 weeks.Counseled patient on concerns over unusual bruising. Discussed with patient that being on Lovenox will make them bruise easier and if patient's bruises become larger in size or darker in color to contact the Anticoagulation Clinic. Advised patient to continue to take Lovenox and closely monitor the bruise. Lastly advised patient if the pain level increase or worsen, she should go to the ER or Urgent care. Anu Damon PharmD Central Portable Router Operator Resident 07/10/2023 9:59 AM documented in this encounter Plan of Treatment Upcoming Encounters Date Type Department Care Team (Late st Contact Info) Description 07/14/2023 7:00 AM EST Anticoagulation Pharmacy, [address] [place] [phone] [place] [address] 08/04/2023 1:50 PM EST Office Visit Family Medicine [address] [place] [phone] Madhuri Galicia, [address] [place] [address] 01/19/2024 1:30 PM EDT Imaging Radiology [address] [place] [phone] 06/14/2024 1:00 PM EST Nurse Only Ancillary [address] [place] [address] [place], Nurse [address] [place] [address] Health Maintenance Due Date Last Done Comments Hepatitis B (1 of 3 - Risk 3-dose series) 2007 COLONOSCOPY-EVERY 5 YRS AGES 18-100 01/05/2018 01/05/2013, 01/05/2013, 06/03/2011, Additional history exists Diabetic Foot Exam 03/29/2020 03/29/2019, 0 03/03/2016, 01/08/2015, Additional history exists HbA1c 07/29/2023 01/26/2023, 06/19, 01/15/2022, Additional history exists GFR 12/16/2023 06/17/2023, 01/16, 01/15/2022, Additional history exists B-12 01/27/2024 01/26/2023, 10/18, 10/18/2020, Additional history exists CKD PHOS USE SMARTSET 33044 01/27/202401/16, 11/05/2021, 10/18/2020, Additional history exists Albumin/Creatinine Ratio 01/28/2024 023, 11/06/2021, 01/03/2020, Additional history exists Diabetic Eye Exam 02/20/2024 02/19/2023, , 11/23/2021, Additional history exists Depression Screening 06/08/2024 06/08/2023 CKD HGB USE SMARTSET 67190 06/17/202406/17, 06/17/2023, 01/26/2023, Additional history exists DXA Scan 12/02/2024 12/02/2022, 11/16, 02/11/2015, Additional history exists DTaP,Tdap,and Td Vaccines (3 - Td or Tdap) 04/26/2029 04/26/2019, 02/09/2008 Hepatitis C Screening Completed 01/20/2010, 010 Pneumococcal Vaccine: 65+ Years Completed 06/08/2016, 03/06/2015, 12/21/2014, Additional history exists Zoster Vaccines Completed 05/29/2019, 03/19, 07/05/2008 VITAMIN D LEVEL ONCE IN A LIFETIME-USE SMARTSET# [id number] Completed 01/26/2023, 01/03/2020, 04/22/2018, Additional history exists COVID-19 Vaccine Completed 04/27/2023, , 02/03/2022, Additional history exists Influenza Vaccine (FLU shot) Completed 04/2023, 06/04/2022, 05/05/2021, Additional history exists GARDASIL-HPV IMMUNIZATION SERIES Aged Out No longer eligible based on patient's age to complete this topic MENINGOCOCCAL (MENACTRA/MENVEO) Aged Out No longer eligible based on patient's age to complete this topic documented as of this encounter Medical Devices Implanted Type Area Program Consultant Device Identifier Shelf Expiration Date Model / Serial / Lot Alloderm 2x4 Sheet [id number] - [id number] Implanted:Qty : 1 on 11/08/2009 at [place] [facility] [place] Tissue - Human N/A: Abdomen [employer] AFIA 02/16/2011 [id number] / / [id number] Mesh 10 X 14 [id number] - [id number] Implanted:Qty : 1 on 02/02/2011 at OR [facility] [place] N/A: Abdomen [employer] AFIA 01/03/2015 [id number] / / [id number] Pelvic Coil 2 Implanted:Qty : 5 on 02/04/2011 at RADIOLOGY [facility] [place] Left: Pelvis [employer] / / [id number] Description:figure 8 documented as of this encounter Visit Diagnoses Diagnosis 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)- Primary Anticoagulation management encounter Encounter for therapeutic drug monitoring documented in this encounter Advance Directives Documents on File Type Date Recorded Patient Scaler Expl anation Advance Directives and Livin g Will 09/29/2017 LIVING WILL Power of Electronic Engineering Technician 09/29/2017 POWER OF A TTORNEY Latest Code Status on File Code Status Date Activated Date Inactivated Comments Full Code 02/18/2011 12:04 AM 02/24/2011 4:36 PM This o rder reflects the patients wishes and were consensually agreed upon. Question Answer Comments Discussion of Advance Directives occurred with: Not Discussed Code Status History Code Status Date Activated Date Inactivated Comments Full Code 02/02/2011 3:47 PM 02/16/2011 11:44 PM This order reflects the patients wishes and were consensually agreed upon. Question Answer Comments Discussion of Advance Directives occurred with: Patient Does the patient have a Living Will? No Does the patient have Health Care Power of Electronic Engineering Technician? No Full Code 01/18/2010 8:53 PM 01/30/2010 6:41 PM This o rder reflects the patients wishes and were consensually agreed upon. Question Answer Comments Discussion of Advance Directives occurred with: Patient Does the patient have a Living Will? No Does the patient have Health Care Power of Electronic Engineering Technician? No Full Code 11/18/2009 11:54 AM 11/19/2009 4:09 PM This o rder reflects the patients wishes and were consensually agreed upon. Question Answer Comments Discussion of Advance Directives occurred with: Patient Does the patient have a Living Will? No Does the patient have Health Care Power of Electronic Engineering Technician? No Full Code 11/13/2009 8:29 AM 11/14/2009 5:08 PM This order reflects the patients wishes and were consensually agreed upon. Care Teams Air Boatswain Relationship Specialty Start Date End Date Madhuri Galicia DO [address] [place] [address] [place] [address] PCP - General Internal Medicine 02/16/17 documented as of this encounter
--- OUTSIDE RECORDS SUMMARY | 2023-07-12 11:05 | External Medical Summary ---
Author Name Unknown Address Unknown Organization [id number]:[facility] [place] - [address] [place] [address] Laboratory Report Ordering Provider Test Date Status PARI COLLADO 07/05/2023 11:48:01 Final Observation Date Value Abnormality Reference (Units ) Status LMW Heparin [Units/volume] in Platelet poor plasma by Chromogenic method 07/05/2023 11:48:01 1.44 Above high normal <0.10 (IU/mL) Final Low molecular weight heparin 's therapeutic range is 0.6 - 1.00 I.U./mL. Performing Location [facility] [place] - [address] [place] [address]
--- OUTSIDE RECORDS SUMMARY | 2023-07-12 11:05 | External Medical Summary | Summary of Care ---
Author Name Unknown Organization [facility] Address [address] [place] [facility] [place] [address] Phone [phone] Care Team Providers Care Die Cutter Name Role Phone Madhuri Galicia DO Primary Care Provider Reason for Visit * Reason Comments Outpatient Testing Encounter Details Date Type Department Care Team (Late st Contact Info) Description 06/17/2023 11:00 AM EST Laboratory Laboratory [address] [place] [phone] [place] [address] [facility] Other*[id number]; Edema, unspecified type Allergies Active Allergy Reactions Criticality Noted Date Comments Ben Inhibitors 12/05/2012 ARF- 2009 Stated that she does not have an allergy to Ben Inhibitors. 06/08/16 States she does not have allergy to Ben inhibitors 03/29/2019 documented as of this encounter (statuses as of 06/17/2023) Medications Medication Sig Dispensed Refills Start Date [...] two weeks. 60 g 5 07/15/2022 Active Apixaban 5 MG Oral Tablet (Eliquis)Indications :Nonrheumatic aortic valve stenosis Take 1 Tablet by mouth in the morning and 1 Tablet before bedtime. 180 Tablet 3 07/15/2022 Active Colestipol HCl 1 GM Oral [...] hemoglobin A1c goal of less than 8.0% ([facility]) Inject 1.5 mg under the skin once a week. 6 mL 3 06/08/2023 Active documented as of this encounter (statuses as of 06/17/2023) Active Problems Problem Noted Date Diagnosed Date Age-related osteoporosis wit hout current pathological fracture [...] Nonrheumatic aortic valve stenosis 03/17/2017 Overview: Mild 2017, mild-moderate 2018 Multiple gastric polyps 06/08/2016 Type [...] as of this encounter (statuses as of 06/17/2023) Resolved Problems Problem Noted Date Diagnosed Date [...] MANAGEMENT 11/18/200905/05 Overview: Stefanie Powell RN Outpatient Developmental Behavioral PhysicianProfessional Golf Tournament Player number [phone] Fax number [phone] Hypotension 11/08/2009 12/19/2012 Follow-up examination, follo wing [...] 02/17/2008 03/12/2017 Anticoagulation management encounter 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 therapy 02/17/2008 [...] as of this encounter (statuses as of 06/17/2023) Immunizations Name Administration Dates Next Due COVID-19 mRNA, LNP-s, No Pre serve, 2-Dose Series ([employer]) 05/27/2021 COVID-19, LNP-s, No Preserve , Rodrick-sucrose, Ages 12+ (Pfizer) 02/03/2022 COVID-19, MRNA-LNP, 23-24, P F, 30 MCG/0.3 mL, 12 YRS AND ABOVE, IM ([employer]) 04/27/2023 Covid-19 Ad26, Single Dose (Depop/J&J) 10/25/2020 Covid-19, Mrna, Lnp-s, Pf, B ivalent, 30 Mcg, IM, 12 yrs and above ([employer]) 06/09/2022 H1N1 2009 Influenza, IM 08/02/2009 Pneumococcal Conjugate Vacc, 13 Valent (Prevnar) 03/06/2015,12/21/2014 Pneumococcal Polysaccharide PPV23 (Pneumovax) 06/08/2016 SEASONAL INFLUENZA, PF, 6 M & Above, IM , (FLULAVAL or FLUZONE) 03/23/2018 Season Influenza, Quad, PF, Adjuvanted, 65+ Yrs, IM (FLUAD) 03/30/2020 Seasonal Influenza, Quadriva lent Hd (Fluzone Hd) [...] on file documented as of this encounter Plan of Treatment Upcoming Encounters Date Type Department Care Team (Late st Contact Info) Description 06/17/2023 2:15 PM EST Imaging Radiology [address] [place] [address] 08/04/2023 1:50 PM EST Office Visit Family Medicine [address] [place] [phone] [address] [place] [address] 01/19/2024 1:30 PM EDT Imaging Radiology [address] [place] [address] 06/14/2024 1:00 PM EST Nurse Only Ancillary [address] [place] [address] [place], Nurse Annual [address] [place] [address] Pending Results Name Type Priority Associated Diagnoses Date /Time MYCODE SUBSEQUENT ADULT Lab Routine [facility] Other*[id number] 06/17/2023 10:50 AM EST BASIC METABOLIC PANEL Lab Routine Edema, unspecified type 06/17/2023 10:50 AM EST CBC WITH WBC DIFFERENTIAL AND ANEMIA REFLEX WORKUP Lab Routine Edema, unspecified type 06/17/2023 10:50 AM EST MYCODE SST1 Lab Routine [facility] Other*[id number] 06/17/2023 10:50 AM EST MYCODE SST2 Lab Routine [facility] Other*[id number] 06/17/2023 10:50 AM EST ANEMIA CBC Lab Routine Edema, unspecified type 06/17/2023 10:50 AM EST DIFFERENTIAL, AUTOMATED Lab Routine Edema, unspecified type 06/17/2023 10:50 AM EST ANEMIA REFLEX CHEMISTRY HOLD Lab Routine Edema, unspecified type 06/17/2023 10:50 AM EST Health Maintenance Due Date Last Done Comments Hepatitis B (1 of 3 - Risk 3-dose series) 2007 COLONOSCOPY-EVERY 5 YRS AGES 18-100 01/05/2018 01/05/2013, 01/05/2013, 06/03/2011, Additional history exists Diabetic Foot Exam 03/29/2020 03/29/2019, 0 03/03/2016, 01/08/2015, Additional history exists GFR 07/29/2023 01/26/2023, 12/19, 10/20/2021, Additional history exists HbA1c 07/29/2023 01/26/2023, 06/19, 01/15/2022, Additional history exists B-12 01/27/2024 01/26/2023, 10/18, 10/18/2020, Additional history exists CKD HGB USE SMARTSET 62773 01/27/202401/26, 01/15/2022, 06/12/2021, Additional history exists CKD PHOS USE SMARTSET 40180 01/27/2024 07/07/2022, 11/05/2021, 10/18/2020, Additional history exists Albumin/Creatinine Ratio 01/28/2024 023, 11/06/2021, 01/03/2020, Additional history exists Diabetic Eye Exam 02/20/2024 02/19/2023, , 11/23/2021, Additional history exists Depression Screening 06/08/2024 06/08/2023 DXA Scan 12/02/2024 12/02/2022, 11/16, 02/11/2015, Additional history exists DTaP,Tdap,and Td Vaccines (3 - Td or Tdap) 04/26/2029 04/26/2019, 02/09/2008 Hepatitis C Screening Completed 01/20/2010, 010 Pneumococcal Vaccine: 65+ Years Completed 06/08/2016, 03/06/2015, 12/21/2014, Additional history exists Zoster Vaccines Completed 05/29/2019, 03/19, 07/05/2008 VITAMIN D LEVEL ONCE IN A LIFETIME-USE SMARTSET# [id number] Completed 01/26/2023, 01/03/2020, 04/22/2018, Additional history exists [...] this encounter Medical Devices Implanted Type Area Visual Arts Teacher Device Identifier Shelf Expiration Date Model / Serial / Lot Alloderm 2x4 Sheet [id number] - [id number] Implanted:Qty : 1 on 11/08/[address] [facility] [place] Tissue - Human N/A: Abdomen LIFE [employer]LL AFIA 02/16/2011 [id number] / / [id number] Mesh 10 X 14 [id number] - [id number] Implanted:Qty : 1 on 02/02/[address] [facility] [place] N/A: Abdomen [employer] AFIA 01/03/2015 [id number] / / [id number] Pelvic Coil 2 Implanted:Qty : 5 on 02/04/[address] [facility] [place] Left: Pelvis [employer] / / [id number] Description:figure 8 documented as of this encounter Visit Diagnoses Diagnosis [facility] Other*[id number] Edema, unspecified type documented in this encounter Advance Directives Documents on File Type Date Recorded Patient Electric Meter Tester Expl anation Advance Directives and Vinh jones Will 09/29/2017 LIVING WILL Power of Director Of Premium Seat Sales 09/29/2017 POWER OF A TTORNEY Latest Code [...] the patient have Health Care Power of Director Of Premium Seat Sales? No Full Code 01/18/2010 8:53 PM 01/30/2010 6:41 PM This o rder reflects the patients wishes and were consensually agreed upon. Question Answer Comments Discussion of Advance Directives occurred with: Patient Does the patient have a Living Will? No Does the patient have Health Care Power of Director Of Premium Seat Sales? No Full Code 11/18/2009 11:54 AM 11/19/2009 4:09 PM This o rder reflects the patients wishes and were consensually agreed upon. Question Answer Comments Discussion of Advance Directives occurred with: Patient Does the patient have a Living Will? No Does the patient have Health Care Power of Director Of Premium Seat Sales? No Full Code 11/13/2009 8:29 AM 11/14/2009 5:08 PM This order reflects the patients wishes and were consensually agreed upon. Care Teams Die Cutter Relationship Specialty Start Date End Date Madhuri Galicia DO [address] [place] [address] [place] [address] PCP - General Internal Medicine 02/16/17 documented as of this encounter
--- OUTSIDE RECORDS SUMMARY | 2023-07-12 11:05 | External Medical Summary | Summary of Care ---
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 06/08/16 States she does not have allergy to Ben inhibitors 03/29/2019 documented as of this encounter (statuses as of 07/06/2023) Medications Medication Sig Dispensed Refills Start Date [...] Contour Next Test In Vitro Strip (Glucose Blood)Indications: Type 2 diabetes mellitus with hemoglobin A1c goal of less than 8.0% (HCC) Use to test blood sugar once a day DXe11.9 100 Strip 3 10/07/2021 Active High Potency Iron 65 MG Oral Tablet Take 65 mg by mouth in the morning. One daily. 0 Active Triamcinolone Acetonide 0.1 % External Cream (Aristocort)Indica tions:Eczema, unspecified type Apply topically to affected area [...] 01/26/2023 Active Allopurinol 100 MG Oral Tablet (Zyloprim)Indicati ons:Gout TAKE 1 TABLET IN THE MORNING 90 Tablet 3 04/16/2023 Active metFORMIN HCl ER 500 MG Oral Tablet Extended Release 24 Hour (Glucophage XR)Indications:Typ e 2 diabetes mellitus with hemoglobin A1c goal [...] Active Trulicity 1.5 MG/0.5ML Subcutaneous Solution Pen-injector (Dulaglutide)Indic ations:Type 2 diabetes mellitus with hemoglobin A1c goal of less than 8.0% (HCC) Inject 1.5 mg under the skin once a week. 6 mL 3 06/08/2023 Active Enoxaparin Sodium 60 MG/0.6ML Injection Solution Prefilled Syringe (Lovenox) Inject 50 mg under the skin in the morning and 50 mg before bedtime. At 8am and 8pm.. 12 mL 3 07/06/2023 Active Enoxaparin Sodium 60 MG/0.6ML Injection Solution Prefilled Syringe (Lovenox) Inject 60 mg under the skin in the morning and 60 mg before bedtime. At 8am and 8pm.. 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 02/17/2008 [...] as of this encounter (statuses as of 07/06/2023) Immunizations Name Administration Dates Next Due COVID-19 mRNA, LNP-s, No Pre serve, 2-Dose Series ([employer]) 05/27/2021 COVID-19, LNP-s, No Preserve , Rodrick-sucrose, Ages 12+ ([employer]) 02/03/2022 COVID-19, MRNA-LNP, 23-24, P F, 30 MCG/0.3 mL, 12 YRS AND ABOVE, IM ([employer] 04/27/2023 Covid-19 Ad26, Single Dose ([employer]) 10/25/2020 Covid-19, Mrna, Lnp-s, Pf, B ivalent, 30 Mcg, IM, 12 yrs and above ([employer]) 06/09/2022 H1N1 2009 Influenza, IM 08/02/2009 Pneumococcal [...] on file documented as of this encounter Progress Notes * Augusta Kessler RPh - 07/06/2023 10:13 AM EST Patient Phone Numbers Current Lovenox Dose: 60mg BID Latest Reference Range & Units 07/05/23 11:48 Heparin, Low Molecular Weight <0.10 IU/mL 1.44 (H) (H): Data is abnormally high Called and spoke to patient. Instructed to decrease dose to 50mg BID (~20%). Will plan to obtain labs 4 hours after AM dose on 07/08. Lovenox Dose: 50mg BID Augutsa Kessler RPh, PharmD Clinical Pharmacist - Pinked Edge Sewing Machine Operator Medication Therapy [facility] 07/06/2023, 10:22 AM [phone] documented in this encounter Plan of Treatment Upcoming Encounters Date Type Department Care Team (Late st Contact Info) Description 07/08/2023 12:00 PM EST Laboratory Laboratory [address] [place] [phone] [facility] [address] [place] [address] 07/09/2023 7:00 AM EST Anticoagulation Pharmacy, [address] [place] [address] [facility] [address] [place] [address] 08/04/2023 1:50 PM EST Office Visit Family Medicine [address] [place] [phone] Madhuri Galicia[address] [place] [address] 01/19/2024 1:30 PM EDT Imaging Radiology [address] [place] [address] 06/14/2024 1:00 PM EST Nurse Only Ancillary [address] [place] [address] [place], Nurse Annual [address] [place] [address] Health Maintenance Due Date Last Done Comments Hepatitis B (1 of 3 - Risk 3-dose series) 2007 COLONOSCOPY-EVERY 5 YRS AGES 18-100 01/05/2018 01/05/2013, 01/05/2013, 06/03/2011, Additional history exists Diabetic Foot Exam 03/29/2020 03/29/2019, 0 03/03/2016, 01/08/2015, Additional history exists HbA1c 07/29/2023 01/26/2023, 12/2 02/2022, 01/15/2022, Additional history exists GFR 12/16/2023 06/17/2023, 01/16, 01/15/2022, Additional history exists B-12 01/27/2024 01/26/2023, 10/18, 10/18/2020, Additional history exists CKD PHOS USE SMARTSET 68573 01/27/202401/16, 11/05/2021, 10/18/2020, Additional history exists Albumin/Creatinine Ratio 01/28/2024 023, 11/06/2021, 01/03/2020, Additional history exists Diabetic Eye Exam 02/20/2024 02/19/2023, , 11/23/2021, Additional history exists Depression Screening 06/08/2024 06/08/2023 CKD HGB USE SMARTSET 17956 06/17/202406/17, 06/17/2023, 01/26/2023, Additional history exists DXA Scan 12/02/2024 12/02/2022, 11/16, 02/11/2015, Additional history exists DTaP,Tdap,and Td Vaccines (3 - Td or Tdap) 04/26/2029 04/26/2019, 02/09/2008 Hepatitis C Screening Completed 01/20/2010, 010 Pneumococcal Vaccine: 65+ Years Completed 06/08/2016, 03/06/2015, 12/21/2014, Additional history exists Zoster Vaccines Completed 05/29/2019, 03/19, 07/05/2008 VITAMIN D LEVEL ONCE IN A LIFETIME-USE SMARTSET# [id number] Completed 01/26/2023, 01/03/2020, 04/22/2018, Additional history exists [...] this encounter Medical Devices Implanted Type Area Distiller Device Identifier Shelf Expiration Date Model / Serial / Lot Alloderm 2x4 Sheet [id number] - [id number] Implanted:Qty : 1 on 11/08/2009 at [place] [facility] [place] Tissue - Human N/A: Abdomen LIFE CELL AFIA 02/16/2011 [id number] / / [id number] Mesh 10 X 14 [id number] - [id number] Implanted:Qty : 1 on 02/02/2011 at [place] [facility] [place] N/A: Abdomen [employer] AFIA 01/03/2015 [id number] / / [id number] Pelvic Coil 2 Implanted:Qty : 5 on 02/04/2011 at RADIOLOGY [facility] [place] Left: Pelvis [employer] / / [id number] Description:figure 8 documented as of this encounter Visit Diagnoses Diagnosis 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 No Full Code 01/18/2010 8:53 PM 01/30/2010 6:41 PM This o rder reflects the patients wishes and were consensually agreed upon. Question Answer Comments Discussion of Advance Directives occurred with: Patient Does the patient have a Living Will? No Does the patient have Health Care Power of Monument Erector? No Full Code 11/18/2009 11:54 AM 11/19/2009 4:09 PM This o rder reflects the patients wishes and were consensually agreed upon. Question Answer Comments Discussion of Advance Directives occurred with: Patient Does the patient have a Living Will? No Does the patient have Health Care Power of Monument Erector? No Full Code 11/13/2009 8:29 AM 11/14/2009 5:08 PM This order reflects the patients wishes and were consensually agreed upon. Care Teams Quarry Supervisor Relationship Specialty Start Date End Date Madhuri Galicia DO [address] [place] [address] [place] [phone] PCP - General Internal Medicine 02/16/17 documented as of this encounter
--- OUTSIDE RECORDS SUMMARY | 2023-07-12 11:05 | External Medical Summary | Summary of Care ---
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 06/08/16 States she does not have allergy to Ben inhibitors 03/29/2019 documented as of this encounter (statuses as of 07/09/2023) Medications Medication Sig Dispensed Refills Start Date [...] hemoglobin A1c goal of less than 8.0% ([facility]) Use to test blood sugar once a [...] hemoglobin A1c goal of less than 8.0% ([facility]) Take 1 Tablet by mouth in the [...] hemoglobin A1c goal of less than 8.0% ([facility]) Inject 1.5 mg under the skin once a week. 6 mL 3 06/08/2023 Active Enoxaparin Sodium 60 MG/0.6ML Injection Solution Prefilled Syringe (Lovenox) Inject 40 mg under the skin in the morning and 40 mg before bedtime. At 8am and 8pm.. 0 07/09/2023 Active Enoxaparin Sodium 60 MG/0.6ML Injection Solution Prefilled Syringe (Lovenox) Inject 50 mg under the skin in the morning and 50 mg before bedtime. At 8am and 8pm.. 12 mL 3 07/06/2023 Discontinue d(Refill) documented as of this encounter (statuses as of 07/09/2023) Active Problems Problem Noted Date Diagnosed Date [...] valve stenosis 03/17/2017 Overview: Mild 2017, mild-moderate 2019 Multiple gastric polyps 06/08/2016 Type 2 diabetes [...] as of this encounter (statuses as of 07/09/2023) Resolved Problems Problem Noted Date Diagnosed Date [...] MANAGEMENT 11/18/200905/05 Overview: Stefanie Powell RN Outpatient Clarity SpecialistsInstrument Mechanic number [phone] Fax number [phone] Hypotension 11/08/2009 12/19/2012 Follow-up examination, follo wing [...] 02/17/2008 03/12/2017 Anticoagulation management encounter 02/17/2008 08/20/2008 [facility] current use of ant icoagulant therapy 02/17/2008 [...] as of this encounter (statuses as of 07/09/2023) Immunizations Name Administration Dates Next Due COVID-19 mRNA, LNP-s, No Pre serve, 2-Dose Series (M2M Solution) 05/27/2021 COVID-19, LNP-s, No Preserve , Rodrick-sucrose, Ages 12+ (M2M Solution) 02/03/2022 COVID-19, MRNA-LNP, 23-24, P F, 30 MCG/0.3 mL, 12 YRS AND ABOVE, IM ([employer]) 04/27/2023 Covid-19 Ad26, Single Dose ([employer]/J&J) 10/25/2020 Covid-19, Mrna, Lnp-s, Pf, B ivalent, 30 Mcg, IM, 12 yrs and above (M2M Solution) 06/09/2022 H1N1 2009 Influenza, IM 08/02/2009 Pneumococcal [...] Progress Notes * Augusta Kessler RPh - 07/09/2023 12:14 PM EST Patient Phone Numbers Current Lovenox Dose: 50mg BID Latest Reference Range & Units 07/05/23 11:48 07/08/23 11:49 Heparin, Low Molecular Weight <0.10 IU/mL 1.44 (H) 1.53 (H) (H): Data is abnormally high Called and spoke to patient. Further reviewed instructions for wasting. Confirmed successful technique used. Confirmed dose of 4 hours after AM dose. Instructed to decrease dose to 40mg BID Will planto obtain labs 4 hours after AM dose on 07/13. Lovenox Dose: 40mg BID Augusta Kessler RPh, PharmD Clinical Pharmacist - Director Critical Care Medication Therapy [facility] 07/09/2023, 12:15 PM Ph.[phone] documented in this encounter Plan of Treatment Upcoming Encounters Date Type Department Care Team (Late st Contact Info) Description 07/14/2023 7:00 AM EST Anticoagulation Pharmacy, [address] [place] [address] [place] [address] 08/04/2023 1:50 PM EST Office Visit Family Medicine [address] [place] [phone] Madhuri [address] [place] [address] 01/19/2024 1:30 PM EDT Imaging Radiology [address] [place] [address] 06/14/2024 1:00 PM EST Nurse Only Ancillary [address] [place] [address] [place], Nurse Annual [address] [place] [address] Scheduled Orders Name Type Priority Associated Diagnoses Orde r Schedule HEPARIN, LOW MOLECULAR WEIGHT Lab Routine 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) Anticoagulation management encounter long term care pharmacist current use of anticoagulant therapy 10 Occurrences starting 07/09/2023 until 07/09/2024 Health Maintenance Due Date Last Done Comments [...] Additional history exists CKD PHOS USE SMARTSET 55494 01/27/202401/16, 11/05/2021, 10/18/2020, Additional history exists Albumin/Creatinine Ratio 01/28/2024 023, 11/06/2021, 01/03/2020, Additional history exists Diabetic Eye Exam 02/20/2024 02/19/2023, , 11/23/2021, Additional history exists Depression Screening 06/08/2024 06/08/2023 CKD HGB USE SMARTSET 83228 06/17/202406/17, 06/17/2023, 01/26/2023, Additional history exists DXA Scan 12/02/2024 12/02/2022, 11/16, 02/11/2015, Additional history exists DTaP,Tdap,and Td Vaccines (3 - Td or Tdap) 04/26/2029 04/26/2019, 02/09/2008 Hepatitis C Screening Completed 01/20/2010, 010 Pneumococcal Vaccine: 65+ Years Completed 06/08/2016, 03/06/2015, 12/21/2014, Additional history exists Zoster Vaccines Completed 05/29/2019, 03/19, 07/05/2008 VITAMIN D LEVEL ONCE IN A LIFETIME-USE SMARTSET# [id number] Completed 01/26/2023, 01/03/2020, 04/22/2018, Additional history exists [...] this encounter Medical Devices Implanted Type Area Medical Stenographer Device Identifier Shelf Expiration Date Model / Serial / Lot Alloderm 2x4 Sheet [id number] - [id number] Implanted:Qty : 1 on 11/08/2009 at [place] [facility] [place] Tissue - Human N/A: Abdomen LIFE CELL AFIA 02/16/2011 [id number] / / [id number] Mesh 10 X 14 [id number] - [id number] Implanted:Qty : 1 on 02/02/2011 at [place] [facility] [place] N/A: Abdomen [employer] AFIA 01/03/2015 [id number] / / [id number] Pelvic Coil 2 Implanted:Qty : 5 on 02/04/2011 at [facility] Left: Pelvis [employer] / / [id number] Description:figure 8 documented as of this encounter Visit Diagnoses Diagnosis 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 No Full Code 01/18/2010 8:53 PM 01/30/2010 6:41 PM This o rder reflects the patients wishes and were consensually agreed upon. Question Answer Comments Discussion of Advance Directives occurred with: Patient Does the patient have a Living Will? No Does the patient have Health Care Power of Electric System Operator? No Full Code 11/18/2009 11:54 AM 11/19/2009 4:09 PM This o rder reflects the patients wishes and were consensually agreed upon. Question Answer Comments Discussion of Advance Directives occurred with: Patient Does the patient have a Living Will? No Does the patient have Health Care Power of Electric System Operator? No Full Code 11/13/2009 8:29 AM 11/14/2009 5:08 PM This order reflects the patients wishes and were consensually agreed upon. Care Teams Kiln Tester Relationship Specialty Start Date End Date Madhuri Galicia DO [address] [place] [address] [place] [address] PCP - General Internal Medicine 02/16/17 documented as of this encounter
--- OUTSIDE RECORDS SUMMARY | 2023-07-12 11:05 | External Medical Summary | Summary of Care ---
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 06/08/16 States she does not have allergy to Ben inhibitors 03/29/2019 documented as of this encounter (statuses as of 07/05/2023) Medications Medication Sig Dispensed Refills Start Date [...] hemoglobin A1c goal of less than 8.0% ([facility]) Take 1 Tablet by mouth in the [...] hemoglobin A1c goal of less than 8.0% ([facility]) Inject 1.5 mg under the skin once a week. 6 mL 3 06/08/2023 Active Enoxaparin Sodium 60 MG/0.6ML Injection Solution Prefilled Syringe (Lovenox) Inject 60 mg under the skin in the morning and 60 mg before bedtime. At 8am and 8pm.. 6 mL 3 07/01/2023 Active documented as of this encounter (statuses as of 07/05/2023) Active Problems Problem Noted Date Diagnosed Date [...] as of this encounter (statuses as of 07/05/2023) Resolved Problems Problem Noted Date Diagnosed Date [...] MANAGEMENT 11/18/200905/05 Overview: Stefanie Powell RN Outpatient Poultry Hatchery ManagerPort Cdl A Driver number [phone] Fax number [phone] Hypotension 11/08/2009 12/19/2012 Follow-up examination, follo wing [...] 02/17/2008 03/12/2017 Anticoagulation management encounter 02/17/2008 08/20/2008 long term care administrator current use of ant icoagulant therapy 02/17/2008 [...] as of this encounter (statuses as of 07/05/2023) Immunizations Name Administration Dates Next Due COVID-19 mRNA, LNP-s, No Pre serve, 2-Dose Series ([employer]) 05/27/2021 COVID-19, LNP-s, No Preserve , Rodrick-sucrose, Ages 12+ (Pfizer) 02/03/2022 COVID-19, MRNA-LNP, 23-24, P F, 30 MCG/0.3 mL, 12 YRS AND ABOVE, IM ([employer]) 04/27/2023 Covid-19 Ad26, Single Dose ([employer]/nGAP) 10/25/2020 Covid-19, Mrna, Lnp-s, Pf, B ivalent, 30 Mcg, IM, 12 yrs and above ([employer]romedix) 06/09/2022 H1N1 2009 Influenza, IM 08/02/2009 Pneumococcal [...] Care Team (Late st Contact Info) Description 07/05/2023 5:30 PM EST Anticoagulation Pharmacy, [address] [place] [address] [place] [address] 08/04/2023 1:50 PM EST Office Visit Family Medicine [address] [place] [phone] Madhuri Galicia [address] [place] [address] 01/19/2024 1:30 PM EDT Imaging Radiology [address] [place] [address] 06/14/2024 1:00 PM EST Nurse Only Ancillary [address] [place] [address] [place]iella, Nurse [address] [place] [address] Pending Results Name Type Priority Associated Diagnoses Date /Time HEPARIN, LOW MOLECULAR WEIGHT Lab Routine 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) Anticoagulation management encounter long term care administrator current use of anticoagulant therapy 07/05/2023 11:48 AM EST Health Maintenance Due Date Last [...] Additional history exists CKD PHOS USE SMARTSET 11174 01/27/202401/16, 11/05/2021, 10/18/2020, Additional history exists Albumin/Creatinine Ratio 01/28/2024 023, 11/06/2021, 01/03/2020, Additional history exists Diabetic Eye Exam 02/20/2024 02/19/2023, , 11/23/2021, Additional history exists Depression Screening 06/08/2024 06/08/2023 CKD HGB USE SMARTSET 74433 06/17/202406/17, 06/17/2023, 01/26/2023, Additional history exists DXA Scan 12/02/2024 12/02/2022, 11/16, 02/11/2015, Additional history exists DTaP,Tdap,and Td Vaccines (3 - Td or Tdap) 04/26/2029 04/26/2019, 02/09/2008 Hepatitis C Screening Completed 01/20/2010, 010 Pneumococcal Vaccine: 65+ Years Completed 06/08/2016, 03/06/2015, 12/21/2014, Additional history exists Zoster Vaccines Completed 05/29/2019, 03/19, 07/05/2008 VITAMIN D LEVEL ONCE IN A LIFETIME-USE SMARTSET# [id number] Completed 01/26/2023, 01/03/2020, 04/22/2018, Additional history exists [...] this encounter Medical Devices Implanted Type Area Hatch Supervisor Device Identifier Shelf Expiration Date Model / Serial / Lot Alloderm 2x4 Sheet [id number] - [id number] [place]planted:Q[place] : 1 [place] 11[place]08[place] [facility] [place] Human N/A: Abdomen LIFE CELL AFIA 02/16/2011 [id number] / / [id number] Mesh 10 X 14 [id number] - [id number] Implanted:Qty : 1 on 02/02/2011 [place] [facility] [place]A: Abdomen [employer] AFIA 01/03/2015 [id number] / / [id number] Pelvic Coil 2 Implanted:Qty : 5 on 02/04/2011 [place] [facility] [place]: Pelvis [employer] / / [id number] Description:figure 8 documented as of this encounter Visit Diagnoses Diagnosis 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 No Full Code 01/18/2010 8:53 PM 01/30/2010 6:41 PM This o rder reflects the patients wishes and were consensually agreed upon. Question Answer Comments Discussion of Advance Directives occurred with: Patient Does the patient have a Living Will? No Does the patient have Health Care Power of Financial Health Counselor? No Full Code 11/18/2009 11:54 AM 11/19/2009 4:09 PM This o rder reflects the patients wishes and were consensually agreed upon. Question Answer Comments Discussion of Advance Directives occurred with: Patient Does the patient have a Living Will? No Does the patient have Health Care Power of Financial Health Counselor? No Full Code 11/13/2009 8:29 AM 11/14/2009 5:08 PM This order reflects the patients wishes and were consensually agreed upon. Care Teams Field Contractor Relationship Specialty Start Date End Date Madhuri Galicia DO [address] [place] [address] [place] [address] PCP - General Internal Medicine 02/16/17 documented as of this encounter
--- OUTSIDE RECORDS SUMMARY | 2023-07-12 11:05 | External Medical Summary | Summary of Care ---
Author Name Unknown Organization [facility] Address [address] [place] [address] Phone [phone] Care Team Providers Care School Office Manager Name Role Phone Madhuri Galicia DO Primary Care Provider Reason for Visit * Reason Onset Date Comments Appointment 06/18/2023 Hematology Encounter Details Date Type Department Care Team (Late st Contact Info) Description 06/18/2023 Telephone Family Medicine [address] [place] [phone] Madhuri Galicia [address] [place] [phone] Appointment (Hematology ) Allergies Active Allergy Reactions Criticality Noted Date Comments Ben Inhibitors 12/05/2012- 2009 Stated that she does not have an allergy to Ben Inhibitors. 06/08/16 States she does not have allergy to Ben inhibitors 03/29/2019 documented as of this encounter (statuses as of 06/18/2023) Medications Medication Sig Dispensed Refills Start Date [...] hemoglobin A1c goal of less than 8.0% ([facility]) Inject 1.5 mg under the skin once a week. 6 mL 3 06/08/2023 Active documented as of this encounter (statuses as of 06/18/2023) Active Problems Problem Noted Date Diagnosed Date [...] as of this encounter (statuses as of 06/18/2023) Resolved Problems Problem Noted Date Diagnosed Date [...] MANAGEMENT 11/18/200905/05 Overview: Stefanie Powell RN Outpatient Consumer Affairs DirectorExecutive Account Manager number [phone] Fax number [phone] Hypotension 11/08/2009 12/19/2012 Follow-up examination, follo wing [...] as of this encounter (statuses as of 06/18/2023) Immunizations Name Administration Dates Next Due COVID-19 mRNA, LNP-s, No Pre serve, 2-Dose Series ([employer]) 05/27/2021 COVID-19, LNP-s, No Preserve , Rodrick-sucrose, Ages 12+ (Pfizer) 02/03/2022 COVID-19, MRNA-LNP, 23-24, P F, 30 MCG/0.3 mL, 12 YRS AND ABOVE, IM ([employer]) 04/27/2023 Covid-19 Ad26, Single Dose ([employer]/J&J) 10/25/2020 Covid-19, Mrna, Lnp-s, Pf, B ivalent, 30 Mcg, IM, 12 yrs and above ([employer]rapeutics) 06/09/2022 H1N1 2009 Influenza, IM 08/02/2009 Pneumococcal [...] encounter Miscellaneous Notes * Telephone Encounter - Luli Ford OSA - 06/18/2023 12:08 PM EST Shikha perez scheduled for Hematology for: Primary hypercoagulable state (HCC) [D68.59] - Primary Comments New DVT in RLE - already on eliquis and taking regularly. Scheduling Notes SP documented in this encounter Plan of Treatment Upcoming Encounters Date Type Department Care Team (Late st Contact Info) Description 08/04/2023 1:50 PM EST Office Visit Family Medicine [address] [place] [phone] [address]uri [address] [place] [address] 01/19/2024 1:30 PM EDT Imaging Radiology [address] [place] [address] 06/14/2024 1:00 PM EST Nurse Only Ancillary [address] [place] [address] [place], Nurse [address] [place] [address] Health Maintenance Due Date Last Done Comments [...] Additional history exists CKD PHOS USE SMARTSET 66477 01/27/202401/16, 11/05/2021, 10/18/2020, Additional history exists Albumin/Creatinine Ratio 01/28/2024 023, 11/06/2021, 01/03/2020, Additional history exists Diabetic Eye Exam 02/20/2024 02/19/2023, , 11/23/2021, Additional history exists Depression Screening 06/08/2024 06/08/2023 CKD HGB USE SMARTSET 53444 06/17/202406/17, 06/17/2023, 01/26/2023, Additional history exists DXA Scan 12/02/2024 12/02/2022, 11/16, 02/11/2015, Additional history exists DTaP,Tdap,and Td Vaccines (3 - Td or Tdap) 04/26/2029 04/26/2019, 02/09/2008 Hepatitis C Screening Completed 01/20/2010, 010 Pneumococcal Vaccine: 65+ Years Completed 06/08/2016, 03/06/2015, 12/21/2014, Additional history exists Zoster Vaccines Completed 05/29/2019, 03/19, 07/05/2008 VITAMIN D LEVEL ONCE IN A LIFETIME-USE SMARTSET# 12361 Completed 01/26/2023, 01/03/2020, 04/22/2018, Additional history exists [...] this encounter Medical Devices Implanted Type Area Scrubber Operator Device Identifier Shelf Expiration Date Model / Serial / Lot Alloderm 2x4 Sheet [id number] - [id number] Implanted:Qty : 1 on 11/08/2009 at [place] [facility] [place] - Human N/A: Abdomen LIFE CELL AFIA 02/16/2011 [id number] / / [id number] Mesh 10 X 14 [id number] - [id number] Implanted:Qty : 1 on 02/02/2011 at [place] [facility] [place] N/A: Abdomen A[employer] MED[employer] AFIA 01/03/2015 [id number] / / [id number] Pelvic Coil 2 Implanted:Qty : 5 on 02/04/2011 at [facility] Left: Pelvis [email or web address] / / [id number] Description:figure 8 documented as of this encounter Advance Directives Documents on File Type Date Recorded Patient Laundry Housekeeper Expl anation Advance Directives and Livin g Will 09/29/2017 LIVING WILL Power of Portfolio Lead 09/29/2017 POWER OF A TTORNEY Latest Code [...] the patient have Health Care Power of Portfolio Lead? No Full Code 01/18/2010 8:53 PM 01/30/2010 6:41 PM This o rder reflects the patients wishes and were consensually agreed upon. Question Answer Comments Discussion of Advance Directives occurred with: Patient Does the patient have a Living Will? No Does the patient have Health Care Power of Portfolio Lead? No Full Code 11/18/2009 11:54 AM 11/19/2009 4:09 PM This o rder reflects the patients wishes and were consensually agreed upon. Question Answer Comments Discussion of Advance Directives occurred with: Patient Does the patient have a Living Will? No Does the patient have Health Care Power of Portfolio Lead? No Full Code 11/13/2009 8:29 AM 11/14/2009 5:08 PM This order reflects the patients wishes and were consensually agreed upon. Care Teams School Office Manager Relationship Specialty Start Date End Date Madhuri Galicia DO [address] [place] [address] [place] [address] PCP - General Internal Medicine 02/16/17 documented as of this encounter
--- OUTSIDE RECORDS SUMMARY | 2023-07-12 11:05 | External Medical Summary | Summary of Care ---
Author Name Unknown Organization [facility] Address [address] [place] [address] Phone [phone] Care Team Providers Care Rocket Engine Mechanic Name Role Phone Madhuri Galicia DO Primary Care Provider Reason for Visit * Reason Onset Date Comments Nurse Documentation 06/18/2023 Advance Care Planning/ [employer] Encounter Details Date Type Department Care Team (Late st Contact Info) Description 06/18/2023 Telephone Care Coordination [address] [place] [address] Janae Garcia LPN Nurse Documentation (Advance Care Planning... Allergies Active Allergy Reactions Criticality Noted Date [...] hemoglobin A1c goal of less than 8.0% ([facility]) Use to test blood sugar [...] hemoglobin A1c goal of less than 8.0% ([facility]) Take 1 Tablet by mouth [...] hemoglobin A1c goal of less than 8.0% ([facility]) Inject 1.5 mg under the [...] MANAGEMENT 11/18/200905/05 Overview: Stefanie Powell RN Outpatient [employer] number [phone] Fax number [phone] Hypotension 11/08/2009 12/19/2012 Follow-up examination, jerel sarah other surgery 11/08/2009 12/19/2012 Diaphragmatic hernia 11/08/2009 [...] 02/17/2008 03/12/2017 Anticoagulation management encounter 02/17/2008 08/20/2008 crane hoist or lift operator current use of ant icoagulant therapy [...] mRNA, LNP-s, No Pre serve, 2-Dose Series (GridAnts) 05/27/2021 COVID-19, LNP-s, No Preserve , Rodrick-sucrose, Ages 12+ (Pfizer) 02/03/2022 COVID-19, MRNA-LNP, 23-24, P F, 30 MCG/0.3 mL, 12 YRS AND ABOVE, IM (Konbini-ComirnatSepaton) 04/27/2023 Covid-19 Ad26, Single Dose (Inotrem/J&J) 10/25/2020 Covid-19, Mrna, Lnp-s, Pf, B ivalent, 30 Mcg, IM, 12 yrs and above (GridAnts) 06/09/2022 H1N1 2009 Influenza, IM 08/02/2009 Pneumococcal [...] as of this encounter Miscellaneous Notes * ACP (Advance Care Planning) - Janae Garcia LPN - 06/18/2023 12:35 PM EST Advance Care Planning Discussion with: Patient and Spouse. I contacted patient and spouse after AWV visit with RN. Documents on chart include Durable Health Care Power of Excel Developer and Living Will that were dated 09/28/2017 but are not Witnessed ,indicating that it is not a legal document. Patient is unsure of location of document. I explained that it will be necessary to complete a new document that legally appoints her agents and expresses her wishes. Suggest ACP discussion. Would like to receive information and call to discuss further. ACP booklet, Health Care Agent card, Combined Living Will document, Fact on CPR and Help w Breathing and contact information mailed along with copy of documents scanned to EMR for our further discussion. They will contact me after receipt of information. Provided contact information. * Telephone Encounter - Janae Garica LPN - 06/18/2023 12:06 PM EST Advance Care Planning/ MyCareChoices Message received from Taylor Morales RN requesting contacting patient ACP discussed, no witnesses on forms See ACP note documented in this encounter Plan of Treatment Upcoming Encounters Date Type Department Care Team (Late st Contact Info) Description 08/04/2023 1:50 PM EST Office Visit Family Medicine [address] [place] [phone] Madhuri [address] [place] [phone] 01/19/2024 1:30 PM EDT Imaging Radiology [address] [place] [id number] 06/14/2024 1:00 PM EST Nurse Only Ancillary [address] [place] [phone] [place], Nurse Annual [address] [place] [id number] Health Maintenance Due Date Last Done Comments [...] Additional history exists CKD PHOS USE SMARTSET 54980 01/27/202401/16, 11/05/2021, 10/18/2020, Additional history exists Albumin/Creatinine Ratio 01/28/2024 023, 11/06/2021, 01/03/2020, Additional history exists Diabetic Eye Exam 02/20/2024 02/19/2023, , 11/23/2021, Additional history exists Depression Screening 06/08/2024 06/08/2023 CKD HGB USE SMARTSET 30449 06/17/202406/17, 06/17/2023, 01/26/2023, Additional history exists DXA Scan 12/02/2024 12/02/2022, 11/16, 02/11/2015, Additional history exists DTaP,Tdap,and Td Vaccines (3 - Td or Tdap) 04/26/2029 04/26/2019, 02/09/2008 Hepatitis C Screening Completed 01/20/2010, 010 Pneumococcal Vaccine: 65+ Years Completed 06/08/2016, 03/06/2015, 12/21/2014, Additional history exists Zoster Vaccines Completed 05/29/2019, 03/19, 07/05/2008 VITAMIN D LEVEL ONCE IN A LIFETIME-USE SMARTSET# 20041 Completed 01/26/2023, 01/03/2020, 04/22/2018, Additional history exists [...] this encounter Medical Devices Implanted Type Area Garden Labourer Device Identifier Shelf Expiration Date Model / Serial / Lot Alloderm 2x4 Sheet [id number] - [id number] Implanted:Qty : 1 on 11/08/2009 at [place] [facility] [place] Tissue - Human N/A: Abdomen [employer] 02/16/2011 [id number] / / [id number] Mesh 10 X 14 [id number] - [id number] Implanted:Qty : 1 on 02/02/2011 at [place] [facility] [place] N/A: Abdomen [employer] 01/03/2015 [id number] / / [id number] Pelvic Coil 2 Implanted:Qty : 5 on 02/04/2011 at RADIOLOGY [facility] [place] Left: Pelvis [employer] / / [id number] Description:figure 8 documented as of this encounter Advance Directives Documents on File Type Date Recorded Patient Client Technical Support Associate Expl anation Advance Directives and Vinh g Will 09/29/2017 LIVING WILL Power of Excel Developer 09/29/2017 POWER OF A TTORNEY Latest Code [...] the patient have Health Care Power of Excel Developer? No Full Code 01/18/2010 8:53 PM 01/30/2010 6:41 PM This o rder reflects the patients wishes and were consensually agreed upon. Question Answer Comments Discussion of Advance Directives occurred with: Patient Does the patient have a Living Will? No Does the patient have Health Care Power of Excel Developer? No Full Code 11/18/2009 11:54 AM 11/19/2009 4:09 PM This o rder reflects the patients wishes and were consensually agreed upon. Question Answer Comments Discussion of Advance Directives occurred with: Patient Does the patient have a Living Will? No Does the patient have Health Care Power of Excel Developer? No Full Code 11/13/2009 8:29 AM 11/14/2009 5:08 PM This order reflects the patients wishes and were consensually agreed upon. Care Teams Rocket Engine Mechanic Relationship Specialty Start Date End Date Madhuri Galicia DO [address] [place] [address] [place] [phone] PCP - General Internal Medicine 02/16/17 documented as of this encounter
--- OUTSIDE RECORDS SUMMARY | 2023-07-12 11:05 | External Medical Summary | Summary of Care ---
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 [facility] Comments Anticoagulation referral for management of: Enoxaparin Indication for Enoxaparin referral: Treatment of VTE with termite control representative enoxaparin Relevant History: Recurrent right lower extremity x2, left lower extremity x1. She has IVC filter. She had oral Coumadin, had developed new right lower extremity DVT while on Eliquis. Minimum frequency patient should be seen in person for medication management: as appropriate per clinical condition and patient status By my signature, I understand that my patient Radha Cohn will have her medication therapy managed by the [facility] Medication Therapy [facility] ([facility]) per established policies, procedures, and protocols. I also certify that this referral may serve as an initiation of service for the management of drug therapy in the above noted patient. [facility] providers will be responsible for scheduling patient visits, obtaining appropriate laboratory studies, and adjusting medication management therapy per patient's need, in addition to those roles spelled out in the clinic policy, procedures, and drug management protocols. I understand that the service provided by the [facility] Clinic is voluntary and have informed patient that they can refuse the service at their discretion. I am aware that the [facility] Clinic will provide me with a copy of the patient encounter via my [employer]. I authorize the [facility] to carry out these activities on my behalf. I consider this program to be a necessary part of the patient's medical care. Gregory Nielsen MD Reason for Visit * Reason Comments Consultation DVT * Evaluate & Treat - Unlimited Visits (Within 10 days (routine)) - Authorized Specialty Diagnoses / Procedures Referred By Christina t Referred To Contact Hematology/Oncology / Hematology Oncology Diagnoses Primary hypercoagulable state (HCC) Cierra Vail PA-C [address] [place] [address] [place] [address] Referral ID Status Reason Start Date Expiration Date Visits Requested Visits Authorized [id number] Authorized Specialty Services Required 06/18/2023 999 999 Encounter Details Date Type Department Care Team (Late st Contact Info) Description 06/30/2023 12:15 PM EST Office Visit Hematology/Oncology Veronika D[place] [address] [facility] [place] [address] Gregory Nielsen MD [address] [facility] [place] [address] 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 06/08/16 States she does not have allergy to Ben inhibitors 03/29/2019 documented as of this encounter (statuses as of 06/30/2023) Medications Medication Sig Dispensed Refills Start Date [...] as of this encounter (statuses as of 06/30/2023) Active Problems Problem Noted Date Diagnosed Date [...] as of this encounter (statuses as of 06/30/2023) Resolved Problems Problem Noted Date Diagnosed Date [...] MANAGEMENT 11/18/200905/05 Overview: Stefanie Powell RN Outpatient Field NaturalistLighting Director number [phone] Fax number [phone] Hypotension 11/08/2009 12/19/2012 Follow-up examination, follo wing [...] 02/17/2008 03/12/2017 Anticoagulation management encounter 02/17/2008 08/20/2008 ad terminal makeup operator current use of ant icoagulant therapy [...] as of this encounter (statuses as of 06/30/2023) Immunizations Name Administration Dates Next Due COVID-19 mRNA, LNP-s, No Pre serve, 2-Dose Series ([employer]) 05/27/2021 COVID-19, LNP-s, No Preserve , Rodrick-sucrose, Ages 12+ ([employer]) 02/03/2022 COVID-19, MRNA-LNP, 23-24, P F, 30 MCG/0.3 mL, 12 YRS AND ABOVE, IM ([employer] 04/27/2023 Covid-19 Ad26, Single Dose ([employer]) 10/25/2020 Covid-19, Mrna, Lnp-s, Pf, B ivalent, 30 Mcg, IM, 12 yrs and above ([employer]) 06/09/2022 H1N1 2009 Influenza, IM 08/02/2009 Pneumococcal [...] Date Smoking Tobacco: Never Smokeless Tobacco: Never Tobacco Cessation:Counseling Given: Not Answered Alcohol Use Standard Drinks/Week Comments No 0 [...] on file documented as of this encounter Last Filed Vital Signs Vital Sign Reading Time Taken Comments Blood Pressure 174/100 06/30/2023 12:22 PM EST Pulse 77 06/30/2023 12:22 PM EST Temperature - - Respiratory Rate 16 06/30/2023 12:2 2 PM EST Oxygen Saturation 97% 06/30/2023 12: 22 PM EST Inhaled Oxygen Concentration - - Weight 66.1 kg (145 lb 12.8 oz) 023 12:22 PM EST Height 162.6 cm (5' 4") 06/30/2023 12:2 2 PM EST Body Mass Index 25.03 06/30/2023 12:22 PM EST documented in this encounter Progress Notes * Gregory Nielsen MD - 06/30/2023 12:15 PM EST Hematology/Oncology Outpatient Consult Note [facility] [place] [address] [place] [address] RADHA COHN MR # [id number] :1945 77-year-old female, REASON FOR CONSULTATION: Consultation for Radha M Marvinsrikanth requested by Dr. Galicia for evaluation and discussion of treatment options for new DVT in right lower extremity while on Eliquis. Date of consultation:06/30/2023 DIAGNOSIS: Right lower extremity significant DVT from common femoral to the calf vein (06/17/2023) As per the patient, previous history of thrombotic complications as follows: -2007, she had left lower extremity DVT, - right lower extremity DVT in somewhere 2013 She was seen by dental laboratory supervisor Dr. Guillen earlier in May of 2011, as per the consult note, patient had a thorough hypercoagulable state workup at [facility] in 2007 and It was negative. She also has IVC filter placement somewhere in 2007 at [facility]. CURRENT TREATMENT: Currently she is on Eliquis but she has developed extensive right lower extremity DVT while on Eliquis. I would like to change to Lovenox 1 mg kg every 12 hourly. Will refer her to anticoagulant clinic for that. DIAGNOSTIC WORKUP: Previous history of thrombotic complications noted. For the last 2 years also, she is on Eliquis 5 mg twice a day and she says that she is taking It onregular basis Recently when she woke up in the morning, she noticed to have a significant swelling of the right lower extremity which was not there in the previous day, did not have any local discomfort. Right lower extremity Doppler evaluation done on 06/17/2023: -significant DVT extending from common femoral to the calf. She says she has not missed Eliquis during that time. In the past did not have any thrombotic complications Eliquis has been discontinued since then, she has been using compression stockings, improvement of the right leg edema noted. She did not have any pulmonary symptoms. She has not much ambulating, she ambulates with the help of the walker at home, she has hyperextension of the left knee OTHER IMPORTANT HISTORY: - diabetes mellitus -hypertension -GERD -hypertension -osteoporosis -gout. -she has IVC filter placement. - Chronic renal insufficiency. INTERVAL HISTORY: She has come the clinic for the initial evaluation, accompanied by her in the office, she came to clinic in the wheelchair. Previously noted right leg edema has improved, no leg discomfort, leg leg hyperextension and so It has been immobilized, no nausea no vomiting, no cardiac or pulmonarysymptom, no bleeding from the sites. Current weight around 145 lb. She has not much ambulating. REVIEW OF SYSTEMS: GENERAL: No recent change in weight, no weakness, some fatigue, no fever, sweats or chills. SKIN: No skin rash, no bruising. HEAD: No new headache, no dizziness. EYES: No recent change in the vision, no diplopia, EARS: No earache no tinnitus, NOSE: No epistaxis, No nasal discharge or stuffiness, MOUTH: No sores, no dysphagia, no hoarseness of voice, NECK: No lumps, No swelling in thyroid area. No stiffness. PULMONARY: No cough, No shortness of breath, no hemoptysis, no chest pain, No wheezing. CARDIOVASCULAR: No anginal chest pain, no PND, no orthopnea. No palpitation, right leg edema improved to some extent. No syncope. GASTROINTESTINAL: No abdominal pain, no nausea or vomiting. No diarrhea, No constipation. No blood in stool or black tarry stools. No abdominal distention. UROLOGIC: No burning urination. No hematuria. MUSCULOSKELETAL: knee joint pain, back pain. HEMATOLOGIC: No anemia, no bleeding disorder, No bruising. NEUROLOGIC: No seizures, no focal weakness, no speech difficulty, No memory disturbances. No tingling or numbness of the extremities. PSYCHIATRIC: No depression. No anxiety. No psychosis. Past Medical History: Diagnosis Date ARF (acute renal failure) (HCC) Dr Matthews Arthrodesis status 01/14/2005 Benign neoplasm of colon 02/24/2007 adenomatous tissue-repeat colonoscopy in 3 years Congenital hiatus hernia Depressive disorder, not elsewhere classified resolved DM type 2, goal A1c below 7 2001 Endometrial cancer (HCC) 1980 D&C in [place] Gastric ulcer 11/08/2009 Heme + stool HTN, goal below 140/80 Hyperlipidemia LDL goal < 100 Other specified gastritis without mention of hemorrhage 02/10/2008 mild chronic Peptic ulcer in hiatal hernia, Hgb 5.5! 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 ICD-10 update of inactive term Septicemia (HCC) 01/25/2010 Past Surgical History: Procedure Laterality Date ANEURYSM ABDOM AORTA 02/05/2011 REPAIR ANEURYSM ABDOMINAL AORTA performed by MARTI BILLINGSLEY at [facility] COLONOSCOPY W/ BIOPSY (RECTUM) 02/24/07 repeat 3 yrs adenomatous tissue COLONOSCOPY, DIAGNOSTIC (RECTUM) 01/05/2013 COLONOSCOPY FLEXIBLE PROXIMAL DIAGNOSTIC performed by Jase Maya DO at [facility] DRAIN COMPL POSTOP WOUND INFECTION 02/05/2011 INCISION AND DRAINAGE COMPLEX POST OPERATIVE WOUND INFECT performed by MARTI WHITE at [facility] EGD, FLEXIBLE, DIAGNOSTIC 09/26/09 Suspected gastroparesis, f/u with UGI EGD, FLEXIBLE, DIAGNOSTIC 11/13/09 UPPER GI ENDOSCOPY DIAGNOSTIC performed by YUSRA KAPLAN at [facility] EGD, FLEXIBLE, DIAGNOSTIC 03/14/2012 UPPER GI ENDOSCOPY DIAGNOSTIC performed by Jase Maya DO at [facility] EGD, FLEXIBLE, DIAGNOSTIC 03/17/2012 UPPER GI ENDOSCOPY DIAGNOSTIC performed by Jase Maya DO at [facility] EGD, FLEXIBLE, DIAGNOSTIC 01/05/2013 UPPER GI ENDOSCOPY DIAGNOSTIC performed by Jase Maya DO at [facility] EGD, FLEXIBLE, DIAGNOSTIC 09/27/2014 inflammatory tissue on bx, rpeat 1 yr/ESOPHAGOGASTRODUODENOSCOPY (EGD), FLEXIBLE, TRANSORAL, DIAGNOSTIC performed by Jase Maya DO at [facility] EGD, FLEXIBLE, DIAGNOSTIC 10/08/2015 reflux esophagitis, retained food/ESOPHAGOGASTRODUODENOSCOPY (EGD), FLEXIBLE, TRANSORAL, DIAGNOSTICperformed by Jase Maya DO at [facility] EGD, FLEXIBLE, W/BIOPSY 02/10/08 mild chronic gastric inflammation EGD, W/ENDOSCOPIC US 03/03/2013 UPPER GI ENDOSCOPY ENDOSCOPIC ULTRASOUND performed by Jase Maya DO at [facility] ESOPHAGOGASTRIC FUNDOPLASTY 04/10/08 Laparoscopic Sayra fundoplication, left lower quadrant lower abdominal incarcerated incisional hernia repair with dual guard mesh, appr. 3 x 3cm defect 04/10/08 Dr. Millan ESOPHAGOGASTRIC FUNDOPLASTY 11/08/09 LAPAROSCOPIC ESOPHAGOGASTRIC FUNDOPLASTY SAYRA performed by YUSRA KAPLAN at [facility] IMPLANT MESH W/ ABD HERNIA REPR/DEBRIDE 02/02/2011 IMPLANTATION MESH WITH INCISIONAL/VENTRAL HERNIA performed by MARTI WHITE at [facility] INSER NIKOLAS CAT,W/O PUMP;5YR/OLD 01/23/2010 INSERT TUNNELED CENTRAL VENOUS CATHETER* performed by ROSALVA STACY at RADIOLOGY [facility] IR ARTERIOGRAM PELVIC 02/04/2011 ANGIOGRAPHY PELVIC COMPLETE GLOBAL performed by ROSALVA STACY at RADIOLOGY [facility] IR PLACEMENT IVC FILTER 02/05/08 DVT, PE, gastric ulcer Hgb 5.5 MUSCLE/FASCIA DEBRIDEMENT, FIRST 20 CM2 02/19/2011 DEBRIDEMENT SKIN SUBCUTANEOUS TISSUE AND MUSCLE performed by ADDY DEY at [facility] NEG PRESSURE WOUND THERAPY DME >50 SQ CM 02/19/2011 NEGATIVE PRESSURE WOUND THERAPY GREATER THAN 50SQ CM performed by ADDY DEY at [facility] NEG PRESSURE WOUND THERAPY DME >50 SQ CM 02/23/2011 NEGATIVE PRESSURE WOUND THERAPY GREATER THAN 50SQ CM performed by ADDY DEY at [facility] OTHER 04/11/08 Laparoscopic removal of retained holli drain 04/11/08 Dr. Alvarez PROSTHETIC MAT/MESH, ABD, NECROTIC, REMOVAL 02/02/2011 REMOVAL MESH ABDOMINAL WALL NECROTIZING SOFT TISSUE INFECTION performed by MARTI WHITE at [facility] REMOVE CATARACT, INSERT LENS PROSTH 08/10/11 L eye REMOVE CATARACT, INSERT LENS PROSTH 08/24/11 R eye REPAIR PARAESOPHAGEAL HERNIA 11/08/09 LAPAROSCOPIC REPAIR PARAESOPHAGEAL HIATUS HERNIA WITH OR WITHOUT FUNDOPLASTY, VAGOTOMY, OR PYLOROPLASTY performed by YUSRA KAPLAN at [facility] REPAIR RECURRENT INCISIONAL HERNIA 02/02/2011 REPAIR RECURRENT INCISIONAL HERNIA STRANGULATED performed by MARTI WHITE at [facility] REVISION OF ANKLE JOINT 1996 Ankle Joint Arthroplasty,right SUBQ DEBRIDEMENT, FIRST 20 CM2 02/23/2011 DEBRIDEMENT SKIN AND SUBCUTANEOUS TISSUE performed by ADDY DEY at [facility] TOTAL ABD HYSTERECTOMY W/WO REMOVAL OF TUBE(S) 2001 UPPER GI ENDOSCOPY/EXAM 11/08/09 UPPER GI ENDOSCOPY SIMPLE performed by YUSRA KAPLAN at [facility] VEIN BYPASS,FEMORAL-POPLITEAL 02/05/2011 BYPASS GRAFT WITH VEIN FEMORAL POPLITEAL performed by MARTI BILLINGSLEY at [facility] VENOGRAM EXTREMITY UNI-FLUOR 02/05/2011 IMAGING S&I EXTREMITY VEIN performed by MARTI BILLINGSLEY at [facility] Current Outpatient Medications Medication Sig Dispense Refill ASPIRIN EC 81 MG PO TBEC 1 TABLET DAILY 30 Tab 0 FISH OIL 1000 MG PO CAPS four capsules by mouth daily Cholecalciferol (VITAMIN D) 1000 units Tablet Take 1 Tablet by mouth in the morning. Olmesartan Medoxomil 5 MG Oral Tablet Take 5 mg by mouth in the morning and 5 mg before bedtime. Contour Next Test In Vitro Strip (Glucose Blood) Use to test blood sugar once a day DXe11.9 100 Strip 3 High Potency Iron 65 MG Oral Tablet Take 65 mg by mouth in the morning. One daily. Triamcinolone Acetonide 0.1 % External Cream (Aristocort) Apply topically to affected area 2 times a day. To affected area for up to two weeks. 60 g 5 Apixaban 5 MG Oral Tablet (Eliquis) Take 1 Tablet by mouth in the morning and 1 Tablet before bedtime. 180 Tablet 3 Colestipol HCl 1 GM Oral Tablet (Colestid) Take 1 Tablet by mouth in the morning and 1 Tablet before bedtime. 180 Tablet 3 Alendronate Sodium 70 MG Oral Tablet (Fosamax) Take 1 Tablet by mouth once a week. with 8 oz. water30 minutes before first meal of the day. Remain upright for 30 min after taking tablet. 5 Tablet 11 Allopurinol 100 MG Oral Tablet (Zyloprim) TAKE 1 TABLET IN THE MORNING 90 Tablet 3 metFORMIN HCl ER 500 MG Oral Tablet Extended Release 24 Hour (Glucophage XR) Take 1 Tablet by mouthin the morning and 1 Tablet before bedtime. 180 Tablet 3 Pantoprazole Sodium 20 MG Oral Tablet Delayed Release (Protonix) TAKE 1 TABLET IN THE MORNING 90 Tablet 1 Metoprolol Tartrate 25 MG Oral Tablet (Lopressor) Take 1 Tablet by mouth in the morning and 1 Tablet before bedtime. 180 Tablet 3 Trulicity 1.5 MG/0.5ML Subcutaneous Solution Pen-injector (Dulaglutide) Inject 1.5 mg under the skin once a week. 6 mL 3 No current facility-administered medications for this visit. 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: on disability Tobacco Use Smoking status: Never Smokeless tobacco: Never Vaping Use Vaping Use: Never used Substance and Sexual Activity Alcohol use: No Drug use: No Sexual activity: Yes Partners: Male Other Topics Concern Service Not Asked Blood Transfusions No Caffeine Concern Not Asked Occupational Exposure Not Asked Hobby Hazards Not Asked Sleep Concern Not Asked Stress Concern Not Asked Weight Concern Not Asked Special Diet No Back Care Not Asked Exercise Not Asked Bike Helmet Not Asked Seat Belt Yes Self-Exams Not Asked Social History Narrative 53yo as of 06/08/2023 Social Determinants of Health Financial Resource Strain: Not on file Food Insecurity: No Food Insecurity (06/08/2023) Hunger Vital Sign Worried About Running Out of Food in the Last Year: Never true Ran Out of Food in the Last Year: Never true Transportation Needs: Not on file Physical Activity: Not on file Stress: Not on file Social Connections: Not on file Intimate Partner Violence: Not on file Housing Stability: Not on file On Exam: Examination done in sitting position. In the wheelchair. LMP 10/30/1999 BP 174/100 (BP Site: Left Arm, BP Position: Sitting, BP Cuff Size: Large) | Pulse 77 | Resp 16 | Ht1.626 m (5' 4") | Wt 66.1 kg (145 lb 12.8 oz) | LMP 10/30/1999 | SpO2 97% | BMI 25.03 kg/m | BSA 1.73 m Constitutional: Patient is alert, cooperative and oriented x 3. Well built female, Patient is in noacute distress. HEENT: No icterus, no pallor, Throat and pharynx normal. Sinuses are non-tender. Neck: Supple and without lymphadenopathy or masses. No JVD. No Palpable supraclavicular lymph nodes. Lungs: Clear to auscultation. Bilateral symmetric air entry. No wheezing or rhonchi. Cardiovascular: Normal heart sounds, no murmurs.Regular rate and rhythm. Abdomen: Soft, nontender, no hepatomegaly, no splenomegaly. Bowel sounds are normal. Neurological: No gross focal neurological deficit; walks with a normal gait. Extremities: No finger clubbing, No cyanosis. Mild right leg edema. Skin:: No skin rash. SPINE: No spinal or paraspinal tenderness. LABS: Blood workup done on 06/17/2023: -WBC 9700, H&H of 13/40.3, [place] of 069079 -BUN/Creat: 39/1.4, Calcium 9.5. -normal liver function test (January 2023). IMAGING: Bilateral breast mammogram done on 01/13/2023 --> negative. ASSESSMENT AND PLAN: 77-year-old female, who had left lower extremity DVT in 2008, right lower extremity DVT in 2018, S/P IVC filter placement in 2007, earlier she was treated with Coumadin but she had tough time regulating the INR. For the last 2 years on Eliquis and while on Eliquis, she has developed new right lower extremity extensive DVT from common femoral to the calf vein (06/17/2023. Currently she is on Eliquis, right leg edema improved to some extent She had extensive hypercoagulable state work up earlier 2007, as per the previous hematology notes,It was negative. Do not have those records for the review. No family history of any kind of thrombotic complications Because of new thrombotic complications while on Eliquis, I would like to change anticoagulant treatment to Lovenox, reviewed with regarding the treatment Lovenox and she is in agreement for that Will refer to anticoagulation clinic for Lovenox treatment at 1 mg/kg twice a day. She will continue Lovenox long-term. Planning to see her back in the clinic as needed. Thanks for the consultation Dr. Gregory Nielsen Hem/Onc (This note was completed using the dictation program Fluency Direct. As such, there may be misspellings word substitutions, or other variations that should not change the essence of the clinical content of this encounter note. If there is need for further clarification, please direct questions to the provider listed above.) documented in this encounter Nursing Notes * Jerilyn Freeman CMA - 06/30/2023 12:22 PM EST Patient identifed by name and birthdate Do you have any concerns about pain management for today's visit? No Living Will or Advance Directive for Health Care as noted on the problem list. [facility] is a way you can talk to your provider on line through e-mail. Would you like to sign up? I can activate it for you? ALREADY ACTIVE Filed Vitals: 06/30/23 1222 BP: 174/100 Pulse: 77 Resp: 16 SpO2: 97% Weight: 66.1 kg (145 lb 12.8 oz) Height: 1.626 m (5' 4") Patient was instructed to not get up on the exam table/exam chair until directed and assisted by their provider; patient is to remain seated in the chair/ wheelchair/ exam table/ exam chair for fall prevention and safety reasons. Patient is aware to have assistance to step down off exam table/exam chair with personnel. Patient voiced full comprehension of instructions. documented in this encounter Plan of Treatment Upcoming Encounters Date Type Department Care Team (Late st Contact Info) Description 07/01/2023 5:10 PM EST Anticoagulation Pharmacy, [address] [place] [phone] [place] [address] 08/04/2023 1:50 PM EST Office Visit Family Medicine [address] [place] [phone] Madhuri Galicia, [address] [place] [address] 01/19/2024 1:30 PM EDT Imaging Radiology [address] [place] [phone] 06/14/2024 1:00 PM EST Nurse Only Ancillary [address] [place] [address] [place], Nurse [address] [place] [address] Scheduled Referrals Name Type Priority Associated Diagnoses Orde r Schedule ANTI-COAGULATION REFERRAL OP Referral Within 3 days (urgent) 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) Ordered: 06/30/2023 Health Maintenance Due Date Last Done Comments [...] Additional history exists CKD PHOS USE SMARTSET 93676 01/27/202401/16, 11/05/2021, 10/18/2020, Additional history exists Albumin/Creatinine Ratio 01/28/2024 023, 11/06/2021, 01/03/2020, Additional history exists Diabetic Eye Exam 02/20/2024 02/19/2023, , 11/23/2021, Additional history exists Depression Screening 06/08/2024 06/08/2023 CKD HGB USE SMARTSET 80524 06/17/202406/17, 06/17/2023, 01/26/2023, Additional history exists DXA Scan 12/02/2024 12/02/2022, 11/16, 02/11/2015, Additional history exists DTaP,Tdap,and Td Vaccines (3 - Td or Tdap) 04/26/2029 04/26/2019, 02/09/2008 Hepatitis C Screening Completed 01/20/2010, 010 Pneumococcal Vaccine: 65+ Years Completed 06/08/2016, 03/06/2015, 12/21/2014, Additional history exists Zoster Vaccines Completed 05/29/2019, 03/19, 07/05/2008 VITAMIN D LEVEL ONCE IN A LIFETIME-USE SMARTSET# [id number] Completed 01/26/2023, 01/03/2020, 04/22/2018, Additional history exists [...] this encounter Medical Devices Implanted Type Area Drain Tile Press Operator Device Identifier Shelf Expiration Date Model / Serial / Lot Alloderm 2x4 Sheet [id number] - [id number] Implanted:Qty : 1 on 11/08/2009 at [place] [facility] Tissue - Human N/A: Abdomen LIFE CELL AFIA 02/16/2011 [id number] / / [id number] Mesh 10 X 14 [id number] - [id number] Implanted:Qty : 1 on 02/02/2011 [place] [facility] [place]A: Abdomen [employer] AFIA 01/03/2015 [id number] / / [id number] Pelvic Coil 2 Implanted:Qty : 5 on 02/04/2011 at [place] [facility] [place] Left: Pelvis [employer] / / [id number] Description:figure 8 documented as of this encounter Visit Diagnoses Diagnosis 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 No Full Code 01/18/2010 8:53 PM 01/30/2010 6:41 PM This o rder reflects the patients wishes and were consensually agreed upon. Question Answer Comments Discussion of Advance Directives occurred with: Patient Does the patient have a Living Will? No Does the patient have Health Care Power of Dural Mechanic? No Full Code 11/18/2009 11:54 AM 11/19/2009 4:09 PM This o rder reflects the patients wishes and were consensually agreed upon. Question Answer Comments Discussion of Advance Directives occurred with: Patient Does the patient have a Living Will? No Does the patient have Health Care Power of Dural Mechanic? No Full Code 11/13/2009 8:29 AM 11/14/2009 5:08 PM This order reflects the patients wishes and were consensually agreed upon. Care Teams Collision Center Manager Relationship Specialty Start Date End Date Madhuri Galicia DO [address] [place] [address] [place] [address] PCP - General Internal Medicine 02/16/17 documented as of this encounter
--- OUTSIDE RECORDS SUMMARY | 2023-07-12 11:05 | External Medical Summary | Summary of Care ---
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 06/08/16 States she does not have allergy to Ben inhibitors 03/29/2019 documented as of this encounter (statuses as of 07/08/2023) Medications Medication Sig Dispensed Refills Start Date [...] A1c goal of less than 8.0% ([facility]) Take 1 Tablet by mouth in the [...] A1c goal of less than 8.0% ([facility]) Inject 1.5 mg under the skin once a week. 6 mL 3 06/08/2023 Active Enoxaparin Sodium 60 MG/0.6ML Injection Solution Prefilled Syringe (Lovenox) Inject 50 mg under the skin in the morning and 50 mg before bedtime. At 8am and 8pm.. 12 mL 3 07/06/2023 Active documented as of this encounter (statuses as of 07/08/2023) Active Problems Problem Noted Date Diagnosed Date [...] as of this encounter (statuses as of 07/08/2023) Resolved Problems Problem Noted Date Diagnosed Date [...] MANAGEMENT 11/18/200905/05 Overview: Stefanie Powell RN Outpatient Cage MakerDoor Captain number [phone] Fax number [phone] Hypotension 11/08/2009 12/19/2012 Follow-up examination, follo wing [...] 02/17/2008 03/12/2017 Anticoagulation management encounter 02/17/2008 08/20/2008 terminal supervisor current use of ant icoagulant therapy 02/17/2008 [...] as of this encounter (statuses as of 07/08/2023) Immunizations Name Administration Dates Next Due COVID-19 mRNA, LNP-s, No Pre serve, 2-Dose Series ([employer]) 05/27/2021 COVID-19, LNP-s, No Preserve , Rodrick-sucrose, Ages 12+ ([employer]) 02/03/2022 COVID-19, MRNA-LNP, 23-24, P F, 30 MCG/0.3 mL, 12 YRS AND ABOVE, IM ([employer]) 04/27/2023 Covid-19 Ad26, Single Dose ([employer]) 10/25/2020 Covid-19, Mrna, Lnp-s, Pf, B ivalent, 30 Mcg, IM, 12 yrs and above ([employer]) 06/09/2022 H1N1 2009 Influenza, IM 08/02/2009 [...] Care Team (Late st Contact Info) Description 07/09/2023 7:00 AM EST Anticoagulation Pharmacy, [address] [place] [address] [place] [address] 08/04/2023 1:50 PM EST Office Visit Family Medicine [address] [place] [phone] Madhuri Galicia [address] [place] [address] 01/19/2024 1:30 PM EDT Imaging Radiology [address] [place] [address] 06/14/2024 1:00 PM EST Nurse Only Ancillary [address] [place] [address] Daniella, Nurse [address] [place] [address] Pending Results Name Type Priority Associated Diagnoses Date /Time HEPARIN, LOW MOLECULAR WEIGHT Lab Routine 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) Anticoagulation management encounter terminal supervisor current use of anticoagulant therapy 07/08/2023 11:49 AM EST Health Maintenance Due Date Last [...] Additional history exists CKD PHOS USE SMARTSET 91788 01/27/202401/16, 11/05/2021, 10/18/2020, Additional history exists Albumin/Creatinine Ratio 01/28/2024 023, 11/06/2021, 01/03/2020, Additional history exists Diabetic Eye Exam 02/20/2024 02/19/2023, , 11/23/2021, Additional history exists Depression Screening 06/08/2024 06/08/2023 CKD HGB USE SMARTSET 05430 06/17/202406/17, 06/17/2023, 01/26/2023, Additional history exists DXA Scan 12/02/2024 12/02/2022, 11/16, 02/11/2015, Additional history exists DTaP,Tdap,and Td Vaccines (3 - Td or Tdap) 04/26/2029 04/26/2019, 02/09/2008 Hepatitis C Screening Completed 01/20/2010, 010 Pneumococcal Vaccine: 65+ Years Completed 06/08/2016, 03/06/2015, 12/21/2014, Additional history exists Zoster Vaccines Completed 05/29/2019, 03/19, 07/05/2008 VITAMIN D LEVEL ONCE IN A LIFETIME-USE SMARTSET# 03826 Completed 01/26/2023, 01/03/2020, 04/22/2018, Additional history exists [...] this encounter Medical Devices Implanted Type Area Transit Police Officer Device Identifier Shelf Expiration Date Model / Serial / Lot Alloderm 2x4 Sheet [id number] - [id number] Implanted:Qty : 1 on 11/08/2009 at [place] [facility] [place] Tissue - Human N/A: Abdomen LIFE CELL AFIA 02/16/2011 [id number] / / [id number] Mesh 10 X 14 [id number] - [id number] Implanted:Qty : 1 on 02/02/2011 at [place] [facility] [place] N/A: Abdomen [employer] AF[employer] 01/03/2015 [id number] / / [id number] Pelvic Coil 2 Implanted:Qty : 5 on 02/04/2011 at [place] [facility] [place] Left: Pelvis [employer] / / [id number] Description:figure 8 documented as of this encounter Visit Diagnoses Diagnosis 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 No Full Code 01/18/2010 8:53 PM 01/30/2010 6:41 PM This o rder reflects the patients wishes and were consensually agreed upon. Question Answer Comments Discussion of Advance Directives occurred with: Patient Does the patient have a Living Will? No Does the patient have Health Care Power of Cocoa Press Operator? No Full Code 11/18/2009 11:54 AM 11/19/2009 4:09 PM This o rder reflects the patients wishes and were consensually agreed upon. Question Answer Comments Discussion of Advance Directives occurred with: Patient Does the patient have a Living Will? No Does the patient have Health Care Power of Cocoa Press Operator? No Full Code 11/13/2009 8:29 AM 11/14/2009 5:08 PM This order reflects the patients wishes and were consensually agreed upon. Care Teams Bacteriologist Medical Relationship Specialty Start Date End Date Madhuri Galicia DO [address] [place] [address] [place] [address] PCP - General Internal Medicine 02/16/17 documented as of this encounter
--- OUTSIDE RECORDS SUMMARY | 2023-07-12 11:05 | External Medical Summary | Summary of Care ---
Author Name Unknown Organization [facility] Address [address] [facility] [place] [address] Phone [phone] Care Team Providers Care Bag Making Machine Tender Name Role Phone Madhuri Galicia DO Primary Care Provider Reason for Visit * Reason Comments Dosage Adjustment Via Phone (anticoag Cl inic) Encounter Details Date Type Department Care Team (Latest Contact Info) Description 07/05/2023 5:30 PM EST Anticoagulation Pharmacy, [address] [place] [address] [place] [address] Recurrent acute deep vein thrombosis (DVT) of [...] MANAGEMENT 11/18/200905/05 Overview: Stefanie Powell RN Outpatient Airways Control SpecialistGas Desulfurizer number [phone] Fax number [phone] Hypotension 11/08/2009 12/19/2012 Follow-up examination, follo wing [...] 02/17/2008 03/12/2017 Anticoagulation management encounter 02/17/2008 08/20/2008 roasterman current use of ant icoagulant therapy 02/17/2008 [...] mRNA, LNP-s, No Pre serve, 2-Dose Series ([employer]) 05/27/2021 COVID-19, LNP-s, No Preserve , Rodrick-sucrose, Ages 12+ ([employer]) 02/03/2022 COVID-19, MRNA-LNP, 23-24, P F, 30 MCG/0.3 mL, 12 YRS AND ABOVE, IM ([employer]) 04/27/2023 Covid-19 Ad26, Single Dose ([employer]) 10/25/2020 Covid-19, Mrna, Lnp-s, Pf, B ivalent, 30 Mcg, IM, 12 yrs and above ([employer]) 06/09/2022 H1N1 2009 Influenza, IM 08/02/2009 Pneumococcal [...] Progress Notes * Augusta Kessler RPh - 07/05/2023 4:16 PM EST Patient Phone Numbers Anti-Xa result still in process. Called and spoke with patient and spouse. Instructed to continue current dose at this time. Call placed to f/u upon result tomorrow. Augusta Kessler RPh, PharmD Clinical Pharmacist - [place] Brushing Machine Operator Medication Therapy [facility] 07/05/2023, 4:17 PM [phone] documented in this encounter Plan of Treatment Upcoming Encounters Date Type Department Care Team (Late st Contact Info) Description 07/06/2023 7:00 AM EST Anticoagulation Pharmacy, [address] [place] [address] [place] [address] 08/04/2023 1:50 PM EST Office Visit Family Medicine [address] [place] [phone] [address] [place] [address] 01/19/2024 1:30 PM EDT Imaging Radiology [address] [place] [address] 06/14/2024 1:00 PM EST Nurse Only Ancillary [address] [place] [address] [place], Nurse Annual Wellness [address] [place] [address] [place] [address] Health Maintenance Due Date Last Done Comments [...] Additional history exists CKD PHOS USE SMARTSET 53410 01/27/202401/16, 11/05/2021, 10/18/2020, Additional history exists Albumin/Creatinine Ratio 01/28/2024 023, 11/06/2021, 01/03/2020, Additional history exists Diabetic Eye Exam 02/20/2024 02/19/2023, , 11/23/2021, Additional history exists Depression Screening 06/08/2024 06/08/2023 CKD HGB USE SMARTSET 03528 06/17/202406/17, 06/17/2023, 01/26/2023, Additional history exists DXA Scan 12/02/2024 12/02/2022, 11/16, 02/11/2015, Additional history exists DTaP,Tdap,and Td Vaccines (3 - Td or Tdap) 04/26/2029 04/26/2019, 02/09/2008 Hepatitis C Screening Completed 01/20/2010, 010 Pneumococcal Vaccine: 65+ Years Completed 06/08/2016, 03/06/2015, 12/21/2014, Additional history exists Zoster Vaccines Completed 05/29/2019, 03/19, 07/05/2008 VITAMIN D LEVEL ONCE IN A LIFETIME-USE SMARTSET# 04268 Completed 01/26/2023, 01/03/2020, 04/22/2018, Additional history exists [...] this encounter Medical Devices Implanted Type Area Lan Administrator Device Identifier Shelf Expiration Date Model / Serial / Lot Alloderm 2x4 Sheet [id number] - [id number] Implanted:Qty : 1 on 11/08/2009 at [place] [facility] [place] Tissue - Human N/A: Abdomen LIFE [employer] AFIA 02/16/2011 [id number] / / [id number] Mesh 10 X 14 [id number] - [id number] Implanted:Qty : 1 on 02/02/2011 at [place] [facility] [place] N/A: Abdomen [employer] AF[employer] 01/03/2015 [id number] / / [id number] Pelvic Coil 2 Implanted:Qty : 5 on 02/04/2011 at RADIOLOGY [facility] [place] Left: Pelvis [employer] / / [id number] Description:figure 8 documented as of this encounter Visit Diagnoses Diagnosis 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 No Full Code 01/18/2010 8:53 PM 01/30/2010 6:41 PM This o rder reflects the patients wishes and were consensually agreed upon. Question Answer Comments Discussion of Advance Directives occurred with: Patient Does the patient have a Living Will? No Does the patient have Health Care Power of Health And Safety Consultant? No Full Code 11/18/2009 11:54 AM 11/19/2009 4:09 PM This o rder reflects the patients wishes and were consensually agreed upon. Question Answer Comments Discussion of Advance Directives occurred with: Patient Does the patient have a Living Will? No Does the patient have Health Care Power of Health And Safety Consultant? No Full Code 11/13/2009 8:29 AM 11/14/2009 5:08 PM This order reflects the patients wishes and were consensually agreed upon. Care Teams Bag Making Machine Tender Relationship Specialty Start Date End Date Madhuri Galicia DO [address] [place] [address] [place] [address] PCP - General Internal Medicine 02/16/17 documented as of this encounter
--- OUTSIDE RECORDS SUMMARY | 2023-07-12 11:05 | External Medical Summary | Summary of Care ---
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) Gregory Nielsen MD [address] [place] [address] Referral ID Status Reason Start Date Expiration Date Visits Requested Visits Authorized [id number] Authorized Specialty Services Required 3 12/27/2023 99 99 Encounter Details Date Type Department Care Team (Latest Contact Info) Description 07/01/2023 5:10 PM EST Anticoagulation Pharmacy, [address] [place] [address] [place] [address] 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 06/08/16 States she does not have allergy to Ben inhibitors 03/29/2019 documented as of this encounter (statuses as of 07/01/2023) Medications Medication Sig Dispensed Refills Start Date [...] and 8pm.. 6 mL 3 07/01/2023 Active Apixaban 5 MG Oral Tablet (Eliquis)Indicatio ns:Nonrheumatic aortic valve stenosis Take 1 Tablet by mouth in the morning and 1 Tablet before bedtime. 180 Tablet 3 07/15/2022 3 Discontinued documented as of this encounter (statuses as of 07/01/2023) Active Problems Problem Noted Date Diagnosed Date [...] valve stenosis 03/17/2017 Overview: Mild 2016, mild-moderate 2019 Multiple gastric polyps 06/08/2016 Type [...] as of this encounter (statuses as of 07/01/2023) Resolved Problems Problem Noted Date Diagnosed Date [...] MANAGEMENT 11/18/200905/05 Overview: Stefanie Powell RN Outpatient [employer] Relations RecruiterConservation Biology Professor number [phone] Fax number [phone] Hypotension 11/08/2009 12/19/2012 Follow-up examination, follo wing [...] 03/12/2017 Anticoagulation management encounter 02/17/2008 08/20/2008 terminal superintendent current use of ant icoagulant therapy 02/17/2008 08/20/2008 Overview: ICD-10 update of inactive term Other specified gastritis wi thout mention of hemorrhage 02/10/2008 06/08/2016 Overview: mild chronic Other lymphedema 03/22/2007 12/19/2012 Benign neoplasm of colon 02/24/200709/2012 Overview: adenomatous tissue-repeat colonoscopy in 3 years Benign neoplasm of colon 02/24/200709/2012 Overview: adenomatous tissue-repeat colonoscopy in 3 years LOC PRIM OSTEOARTH-ANKLE 01/14/200502/2014 Arthrodesis status 01/14/200506/08/ 6 Type 2 diabetes mellitus wit h [...] as of this encounter (statuses as of 07/01/2023) Immunizations Name Administration Dates Next Due COVID-19 mRNA, LNP-s, No Pre serve, 2-Dose Series ([employer]) 05/27/2021 COVID-19, LNP-s, No Preserve , Rodrick-sucrose, Ages 12+ ([employer]) 02/03/2022 COVID-19, MRNA-LNP, 23-24, P F, 30 MCG/0.3 mL, 12 YRS AND ABOVE, IM ([employer]) 04/27/2023 Covid-19 Ad26, Single Dose ([employer]) 10/25/2020 Covid-19, Mrna, Lnp-s, Pf, B ivalent, 30 Mcg, IM, 12 yrs and above ([employer]) 06/09/2022 H1N1 2009 Influenza, IM 08/02/2009 Pneumococcal [...] of this encounter Progress Notes * Augusta Kessler, [facility] - 07/01/2023 11:16 AM EST Patient Phone Numbers Patient referred to [facility] for anticoagulation management by Gregory Nielsen MD Anticoagulant: Lovenox Indication: Treatment of VTE with detention enoxaparin Goal: Duration: Indefinite Per referral, "Recurrent right lower extremity x2, left lower extremity x1. She has IVC filter. Shehad oral Coumadin, had developed new right lower extremity DVT while on Eliquis. Because of new thrombotic complications while on Eliquis, I would like to change anticoagulant treatment to Lovenox, reviewed with regarding the treatment Lovenox and she is in agreement for that Will refer to anticoagulation clinic for Lovenox treatment at 1 mg/kg twice a day. She will continue Lovenox long-term." Spoke with Dr Nielsen via [employer], would like anti-xa levels monitored. CrCl appropriate for BID dosing, however will need to continue to monitor regularly. Lovenox dose of 1mg/kg --> 60mg BID. Will plan to check anti-xa level x3 days on 07/05/23. Patient made aware to have labs obtained 4 hrs after AM dose. Called and spoke with patient and spouse. Agreeable to obtain syringes so able to start tomorrow AMat 8AM. Will plan to inject at 8AM and 8PM. Provided with [facility] toll free number. Instructed to contact with any questions or concerns. Latest Reference Range & Units 06/17/23 10:50 WBC 4.00 - 10.80 K/uL 9.73 HGB 12.0 - 15.3 g/dL 13.1 HCT 36.0 - 45.2 % 43.3 MCV 81.5 - 97.5 fL 105.9 PLT 140 - 400 K/uL 164 Serum creatinine: 1.4 mg/dL (H) 06/17/23 1050 Estimated creatinine clearance: 32.5 mL/min (A) Augusta Kessler RP Medication Therapy Management Clinic 07/01/2023 11:16 AM documented in this encounter Plan of Treatment Upcoming Encounters Date Type Department Care Team (Late st Contact Info) Description 07/05/2023 12:00 PM EST Laboratory Laboratory [address] [place] [phone] [facility] [address] [place] [address] 07/05/2023 5:30 PM EST Anticoagulation Pharmacy, [address] [place] [address] [place] [address] 08/04/2023 1:50 PM EST Office Visit Family Medicine [address] [place] [phone] [address] [place] [address] 01/19/2024 1:30 PM EDT Imaging Radiology [address] [place] [address] 06/14/2024 1:00 PM EST Nurse Only Ancillary [address] [place] [address] [place], Nurse [address] [place] [address] Scheduled Orders Name Type Priority Associated Diagnoses Orde r Schedule HEPARIN, LOW MOLECULAR WEIGHT Lab Routine 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) Anticoagulation management encounter prison current use of anticoagulant therapy As directed by Anticoag Clinic for 2 Occurrences starting 07/01/2023 until 06/30/2024 Health Maintenance Due Date Last Done Comments [...] Additional history exists CKD PHOS USE SMARTSET 35892 01/27/202401/16, 11/05/2021, 10/18/2020, Additional history exists Albumin/Creatinine Ratio 01/28/2024 023, 11/06/2021, 01/03/2020, Additional history exists Diabetic Eye Exam 02/20/2024 02/19/2023, , 11/23/2021, Additional history exists Depression Screening 06/08/2024 06/08/2023 CKD HGB USE SMARTSET 36493 06/17/202406/17, 06/17/2023, 01/26/2023, Additional history exists DXA Scan 12/02/2024 12/02/2022, 11/16, 02/11/2015, Additional history exists DTaP,Tdap,and Td Vaccines (3 - Td or Tdap) 04/26/2029 04/26/2019, 02/09/2008 Hepatitis C Screening Completed 01/20/2010, 010 Pneumococcal Vaccine: 65+ Years Completed 06/08/2016, 03/06/2015, 12/21/2014, Additional history exists Zoster Vaccines Completed 05/29/2019, 03/19, 07/05/2008 VITAMIN D LEVEL ONCE IN A LIFETIME-USE SMARTSET# [id number] Completed 01/26/2023, 01/03/2020, 04/22/2018, Additional history exists [...] this encounter Medical Devices Implanted Type Area Hand Stone Polisher Device Identifier Shelf Expiration Date Model / Serial / Lot Alloderm 2x4 Sheet [id number] - [id number] Implanted:Qty : 1 on 11/08/2009 at [place] [facility] [place] Tissue - Human N/A: Abdomen [employer] 02/16/2011 [id number] / / [id number] Mesh 10 X 14 [id number] - [id number] Implanted:Qty : 1 on 02/02/2011 at [place] [facility] [place] N/A: Abdomen [employer] 01/03/2015 [id number] / / [id number] Pelvic Coil 2 Implanted:Qty : 5 on 02/04/2011 at [facility] Left: Pelvis Black coin / / [id number] Description:figure 8 documented as of this encounter Visit Diagnoses Diagnosis 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 No Full Code 01/18/2010 8:53 PM 01/30/2010 6:41 PM This o rder reflects the patients wishes and were consensually agreed upon. Question Answer Comments Discussion of Advance Directives occurred with: Patient Does the patient have a Living Will? No Does the patient have Health Care Power of Computer Typesetter Keyliner? No Full Code 11/18/2009 11:54 AM 11/19/2009 4:09 PM This o rder reflects the patients wishes and were consensually agreed upon. Question Answer Comments Discussion of Advance Directives occurred with: Patient Does the patient have a Living Will? No Does the patient have Health Care Power of Computer Typesetter Keyliner? No Full Code 11/13/2009 8:29 AM 11/14/2009 5:08 PM This order reflects the patients wishes and were consensually agreed upon. Care Teams Online Activist Relationship Specialty Start Date End Date Madhuri Galicia DO [address] [place] [address] [place] [address] PCP - General Internal Medicine 02/16/17 documented as of this encounter
--- OUTSIDE RECORDS SUMMARY | 2023-07-12 11:05 | External Medical Summary ---
Author Name Unknown Address Unknown Organization K01[place] [place] [facility] [address] [place] [address] Laboratory Report Ordering Provider Test Date Status PARI COLLADO 07/08/2023 11:49:10 Final Observation Date Value Abnormality Reference (Units ) Status LMW Heparin [Units/volume] in Platelet poor plasma by Chromogenic method 07/08/2023 11:49:10 1.53 Above high normal <0.10 (IU/mL) Final Low molecular weight heparin 's therapeutic range is 0.6 - 1.00 I.U./mL. Performing Location [facility] [place] [address] [place] [address]
--- OUTSIDE RECORDS SUMMARY | 2023-07-12 11:06 | External Medical Summary | Summary of Care ---
Author Name Unknown Organization [facility] Address [address] [place] [address] Phone [phone] Care Team Providers Care Machine Design Engineer Name Role Phone Madhuri Galicia DO Primary Care Provider Reason for Visit * Reason Comments Adult Annual Wellness Visit, Subsequent Visit Encounter Details Date Type Department Care Team (Late st Contact Info) Description 06/08/2023 1:00 PM EST Nurse Only Ancillary [address] [place] [phone] [place], Nurse [address] [place] [phone] Adult Annual Wellness Visit, Subsequent Visit Allergies Active Allergy Reactions Criticality Noted Date Comments Ben Inhibitors 12/05/2012- 2009 Stated that she does not have an allergy to Ben Inhibitors. 06/08/16 States she does not have allergy to Ben inhibitors 03/29/2019 documented as of this encounter (statuses as of 06/08/2023) Medications Medication Sig Dispensed Refills Start Date [...] hemoglobin A1c goal of less than 8.0% ([facility]) Use to test blood sugar once a [...] 30 min after taking tablet. 5 Tablet 01/26/2023 Active Allopurinol 100 MG Oral Tablet (Zyloprim)Indication s:Gout TAKE 1 TABLET IN THE MORNING 90 Tablet 3 04/16/2023 Active metFORMIN HCl ER 500 MG Oral Tablet Extended Release 24 Hour (Glucophage XR)Indications:Type 2 diabetes mellitus with hemoglobin A1c goal of less than 8.0% ([facility]) Take 1 Tablet by mouth in the morning and 1 Tablet before bedtime. 180 Tablet 3 04/16/2023 Active Trulicity 1.5 MG/0.5ML Subcutaneous Solution Pen-injector (Dulaglutide)Indicat ions:Type 2 diabetes mellitus with hemoglobin A1c goal of less than 8.0% ([facility]) Inject 1.5 mg under the skin once a week. 6 mL 3 04/16/2023 Active Pantoprazole Sodium 20 MG Oral Tablet Delayed Release (Protonix) TAKE 1 TABLET IN THE MORNING 90 Tablet 1 04/16/2023 Active Metoprolol Tartrate 25 MG Oral Tablet (Lopressor) Take 1 Tablet by mouth in the morning and 1 Tablet before bedtime. 180 Tablet 04/16/2023 Active documented as of this encounter (statuses as of 06/08/2023) Active Problems Problem Noted Date Diagnosed Date [...] as of this encounter (statuses as of 06/08/2023) Resolved Problems Problem Noted Date Diagnosed Date [...] MANAGEMENT 11/18/200905/05 Overview: Stefanie Powell RN Outpatient Embedded Software Test EngineerCertified Adapted Physical Educator number [phone] Fax number [phone] Hypotension 11/08/2009 12/19/2012 Follow-up examination, follo wing [...] 03/12/2017 Anticoagulation management encounter 02/17/2008 08/20/2008 terminal manager current use of ant icoagulant therapy 02/17/2008 [...] as of this encounter (statuses as of 06/08/2023) Immunizations Name Administration Dates Next Due COVID-19 mRNA, LNP-s, No Pre serve, 2-Dose Series ([email or web address]) 05/27/2021 COVID-19, LNP-s, No Preserve , Rodrick-sucrose, Ages 12+ (Pfizer) 02/03/2022 COVID-19, MRNA-LNP, 23-24, P F, 30 MCG/0.3 mL, 12 YRS AND ABOVE, IM (Targazyme-ComirnatNoesis Energy) 04/27/2023 Covid-19 Ad26, Single Dose (PAX Streamline/J&J) 10/25/2020 Covid-19, Mrna, Lnp-s, Pf, B ivalent, 30 Mcg, IM, 12 yrs and above ([email or web address]) 06/09/2022 H1N1 2009 Influenza, IM 08/02/2009 Pneumococcal [...] Answer Date Recorded PHQ Adult Total Score 0 06/04/2022 Hunger Vital Sign Answer Date Recorded Within the past 12 months, y ou worried that your food would run out before you got the money to buy more. Never true 06/04/20 Within the past 12 months, t he food you bought just didn't last and you didn't have money to get more. Never true 06/04/2022 Sex and Gender Information Value Date Recorded Sex Assigned at Female 03/29/2019 12:31 PM EDT Gender Identity Female 03/29/2019 12:31 PM EDT Sexual Orientation Straight 06/04/2022 1: 26 PM EST Job Start Date Occupation Industry Not on file Not on file Not on file documented as of this encounter Last Filed Vital Signs Vital Sign Reading Time Taken Comments Blood Pressure 118/70 06/08/2023 1:23 PM EST Pulse 74 06/08/2023 1:23 PM EST Temperature 35.9 C (96.6 F) 06/08/2023 1:23 PM ES T Respiratory Rate - - Oxygen Saturation 97% 06/08/2023 1:23 PM EST Inhaled Oxygen Concentration - - Weight 61.7 kg (136 lb) 06/08/2023 1:23 PM EST Height 162.6 cm (5' 4") 06/08/2023 1:23 PM EST Body Mass Index 23.34 06/08/2023 1:23 PM EST documented in this encounter Patient Instructions * Patient Instructions* Taylor Morales RN - 06/08/2023 1:18 PM EST Patient Instructions - Fall Prevention (This education is for all patients over 65 regardless of symptoms) Remember to take your current medications as prescribed. In order to prevent falls, you are encouraged to: Exercise Utilize assistive/adaptive devices Avoid multifocal lenses when walking Avoid hazards in home Maintain a regular toileting schedule Any questions please contact our office. Preventing Falls in the Home (This education is for all patients over 65 regardless of symptoms) As you get older, falls are more likely. Thats because your reaction time slows. Your muscles and joints may also get stiffer, making them less flexible. Illness, medications, and vision changes can also affect your balance. A fall could leave you unable to live on your own. To make your home safer, follow these tips: Floors Put nonskid pads under area rugs Remove throw rugs Replace worn floor coverings Tack carpets firmly to each step on carpeted stairs. Put nonskid strips on the edges of uncarpeted stairs Keep floors and stairs free of clutter and cords Arrange furniture so there are clear pathways Clean up any spills right away Bathrooms Install grab bars in the tub or shower Apply nonskid strips or put a nonskid rubber mat in the tub or shower Sit on a bath chair to bathe Use bathmats with nonskid backing Lighting Keep a flashlight in each room Put a nightlight along the pathway between the bedroom and the bathroom Mary Jane Patient Education Copyright 2008 - 2010 Mary Jane except where otherwise noted Preventing Falls: Exercises to Improve Balance, Flexibility, Strength, and Staying Power (This education is for all patients over 65 regardless of symptoms) Certain types of exercises may help make you less likely to fall. Try the ones below. Or do other exercises that your healthcare provider suggests. Depending on your health, you may need to start slowly. Dont let that stop you. Even small amounts of exercise can help you. Be sure to talk to yourhealthcare provider before starting any exercise program. Improve Balance Many types of exercise can help improve balance. Christiano chi and yoga are good examples. Heres another one to try. You can do it anytime and almost anywhere. Stand next to a counter or solid support. Push yourself up onto your tiptoes. Hold for 5 seconds. If you start to lose your balance, hold on to the counter. Rest and repeat 5 times. Work up to holding for 20 to 30 seconds, if you can. Increase Flexibility Being more flexible makes it easier for you to move around safely. Try exercises like the seated hamstring stretch. Sit in a chair and put one foot on a stool. Straighten your leg and reach with both hands down either side of your leg. Reach as far down your leg as you can. Hold for about 20 seconds. Go back to the starting position. Then repeat 5 times. Switch legs. Build Strength Resistance exercises help build strength. You can do them without equipment. Or you can use weights, elastic bands, or special machines. One such exercise is called the biceps curl. You can hold a 1 pound weight or even a can of soup. Do this exercise at least 3 times a week. Strive for everyday. Sit up straight in a chair. Keep your elbow close to your body and your wrist straight. Bend your arm, moving your hand up to your shoulder. Then slowly lower your arm. Repeat 5 times. Switch to the other arm. Build Your Staying Power Aerobic exercises make your heart and lungs stronger so you can keep moving longer. Walking and swimming are two of the best types of exercises you can do. Using a stationary bike is great, too. Find an aerobic exercise that you enjoy. Start slowly and build up. Even 5 minutes is helpful. Aimfor a goal of 30 minutes, at least 3 times a week. You dont have to do 30 minutes in one session. Break it up and walk a little throughout the day. More Helpful Tips Start easy. Slowly work up to doing more. Talk with your healthcare provider about the best exercises for you. Call senior centers or health clubs about exercise programs. If needed, have a family member watch you walk every so often to check your stability. Exercise with a friend. Choose an activity you both enjoy. Try exercises that you can do anytime, anywhere. Here are two examples. Have someone with you when you first try these: Practice walking by placing one foot right in front of the other. Stand up and sit down 10 times. Repeat this throughout the day. Mary Jane Patient Education Copyright 2008 - 2010 Mary Jane except where otherwise noted. Preventing Falls: Moving Safely Using a Cane or Walker (This education is for all patients over 65 regardless of symptoms) Keep the cane away from your feet so you dont trip. A walking aid, such as a cane or walker, can help you stay more independent and avoid falls. Remember to keep your walking aid within easy reach when youre in a chair or in bed. And learn how to use it safely so you dont injure yourself. Using a Cane If you have a stronger side, hold the cane on that side. Get your balance. Move the cane and your weaker leg forward. Support your weight on both the cane and your weaker side. Step with your stronger leg. Start again from step 1. If youre using a folding walker, be sure you know how to lock it open. Check that its locked open before each use. Using a Walker Roll the walker (or lift it, if youre using one without wheels) forward about 12 inches. Step forward with your weaker leg first. Use the walker to help keep your balance. Bring your other foot forward to the center of the walker. Start again from step 1. Helpful Tips Check with your healthcare provider about the right walking aid to use. Ask about a walker with a seat attached. Check the tips of your cane or walker to make sure they have nonskid covers. Move slowly from room to room. Dont oden. Sit down to get dressed. Use a michael pack or backpack to keep your hands free. Get help for jobs that mean climbing, even on a stepstool. Mary Jane Patient Education Copyright 2008 - 2010 Mary Jane except where otherwise noted. Urinary Incontinence Plan of Care Documentation: (This education is for all patients over 65 regardless of symptoms) Current medications reconciled. Patient encouraged to: Practice kegal exercises Provide education materials Use the restroom every 2 hours throughout the day Limit caffeine, alcohol, spicy foods and acidic foods Keep a bladder diary Limit fluid intake 3-4 hours before bed Lose weight Prevent constipation Take fluid pills at a time when you can get to the bathroom quickly Control sugar better if diabetic Limit fluid intake to 60 oz. per day Wear support stockings (TEDs)if you have edema Taylor Morales RN 06/08/2023 Kegel Exercises Kegel exercises dont require special clothing or equipment. Theyre easy to learn and simple to do. And if you do them right, no one can tell youre doing them, so they can be done almost anywhere. Your doctor, nurse, or physical therapist can answer any questions you have and help you get started. A Weak Pelvic Floor The pelvic floor muscles may weaken due to aging, and vaginal childbirth, injury, surgery, chronic cough, or lack of exercise. If the pelvic floor is weak, your bladder and other pelvic organs may sag out of place. The urethra may also open too easily and allow urine to leak out. Kegel exercises can help you strengthen your pelvic floor muscles so they can better support the pelvic organs and control urine flow. How Kegel Exercises Are Done Try each of the Kegel exercises described below. When youre doing them, try not to move your leg, buttock, or stomach muscles. While youre urinating, try to stop the flow of urine. Start and stop it as often as you can. Contract as if you were stopping your urine stream, but do it when youre not urinating. Tighten your rectum as if trying not to pass gas. Contract your anus, but dont move your buttocks. Helpful Hints Do your Kegels as often as you can. The more you do them, the faster youll feel the results. Pick an activity you do often as a reminder. For instance, do your Kegels every time you sit down. Tighten your pelvic floor before you sneeze, get up from a chair, cough, laugh, or lift. This protects your pelvic floor from injury and can help prevent urine leakage. Try to hold each Kegel for a slow count to five. You probably wont be able to hold them for thatlong at first, but keep practicing. It will get easier as your pelvic floor gets stronger. Eventually, special weights that you place in your vagina may be recommended to help make your Kegels even more effective. Mary Jane Patient Education Copyright 2008 - 2010 Mary Jane except where otherwise noted. Here are some helpful tips for your urinary incontinence: (This education is for all patients over 65 regardless of symptoms) Practice Kegel exercises Use the restroom every 2 hours throughout the day Limit caffeine, alcohol, spicy foods, and acidic foods Keep a bladder diary Limit fluid intake 3-4 hours before bed Lose weight Prevent constipation Take fluid pills at a time when can get to the bathroom quickly Control sugar better if diabetic Limit fluid intake to 60 oz. per day Any questions, please feel free to contact our office. documented in this encounter Progress Notes * Taylor Morales RN - 06/08/2023 1:29 PM EST AD8 Dementia Screening Interview Person answering questions: patient Remember, "Yes, a change" indicates that there has been a change in the last several years caused by cognitive (thinking and memory) problems 1. Problems with judgement (eg: problems making decisions, bad financial decisions, problems with thinking). No (0) 2. Less interest in hobbies/activities. No (0) 3. Repeats the same things over and over (questions, stories, or statements). No (0) 4. Trouble learning how to use a tool, appliance, or gadget (eg: VCR, computer, microwave, remote control). No (0) 5. Forgets correct month or year. No (0) 6. Trouble handling complicated financial affairs (eg: balancing checkbook, income taxes, paying bills). No (0) 7. Trouble remembering appointments. No (0) 8. Daily problems with thinking and/or memory. No (0) TOTAL AD8: 0 - AD8 Dementia Screening Score The final score is a sum of the number items marked "Yes, A Change". 0 - 1: Normal cognition; 2 or greater: Cognitive impairments is likely to be present - further testing required Adult Annual Wellness Visit: Shikha Ricks is a 77 year old female who presents for an Adult Annual Wellness Visit. Depression Screening: Did the patient complete the screening questionnaire for Depression? Yes Is the patient's total score for Depression 15 or greater? No, no further intervention needed, unless requested by patient. Did the patient answer positively to the suicide question? Yes, consult with physician prior to patient leaving the office. In general, compared to other people your age, what would you say that your health is? Fair Ht Readings from Last 1 Encounters: 06/08/23 1.626 m (5' 4") Wt Readings from Last 1 Encounters: 06/08/23 61.7 kg (136 lb) Body Mass Index: BMI Less than 30 Body mass index is 23.34 kg/m. BP Readings from Last 1 Encounters: 06/08/23 118/70 Medical/Surgical/Family History Reviewed: Yes Past Medical History: Diagnosis Date ARF (acute renal failure) (HCC) Dr Matthews Arthrodesis status 01/14/2005 Benign neoplasm of colon 02/24/2007 adenomatous tissue-repeat colonoscopy in 3 years Congenital hiatus hernia Depressive disorder, not elsewhere classified resolved DM type 2, goal A1c below 7 2001 Endometrial cancer (HCC) 1980 D&C in [place] Gastric ulcer 11/08/2009 Heme + stool HTN, [...] ABDOMINAL AORTA performed by MARTI BILLINGSLEY at [facility] COLONOSCOPY W/ BIOPSY (RECTUM) 02/24/07 repeat 3 yrs adenomatous tissue COLONOSCOPY, DIAGNOSTIC (RECTUM) 01/05/2013 COLONOSCOPY FLEXIBLE PROXIMAL DIAGNOSTIC performed by Jase Maya DO at ENDOSCOPY [facility] DRAIN COMPL POSTOP WOUND INFECTION 02/05/2011 INCISION AND DRAINAGE COMPLEX POST OPERATIVE WOUND INFECT performed by MARTI WHITE at [facility] EGD, FLEXIBLE, DIAGNOSTIC 09/26/09 Suspected gastroparesis, f/u with UGI EGD, FLEXIBLE, DIAGNOSTIC 11/13/09 UPPER GI ENDOSCOPY DIAGNOSTIC performed by YUSRA KAPLAN at [facility] EGD, FLEXIBLE, DIAGNOSTIC 03/14/2012 UPPER GI ENDOSCOPY DIAGNOSTIC performed by Jase Maya DO at ENDOSCOPY [facility] EGD, FLEXIBLE, DIAGNOSTIC 03/17/2012 UPPER GI ENDOSCOPY DIAGNOSTIC performed by Jase Maya DO at ENDOSCOPY [facility] EGD, FLEXIBLE, DIAGNOSTIC 01/05/2013 UPPER GI ENDOSCOPY DIAGNOSTIC performed by Jase Maya DO at ENDOSCOPY [facility] EGD, FLEXIBLE, DIAGNOSTIC 09/27/2014 inflammatory tissue on bx, rpeat 1 yr/ESOPHAGOGASTRODUODENOSCOPY (EGD), FLEXIBLE, TRANSORAL, DIAGNOSTIC performed by Jase Maya DO at ENDOSCOPY [facility] EGD, FLEXIBLE, DIAGNOSTIC 10/08/2015 reflux esophagitis, retained food/ESOPHAGOGASTRODUODENOSCOPY (EGD), FLEXIBLE, TRANSORAL, DIAGNOSTICperformed by Jase Maya DO at [facility] EGD, FLEXIBLE, W/BIOPSY 02/10/08 mild chronic gastric inflammation EGD, W/ENDOSCOPIC US 03/03/2013 UPPER GI ENDOSCOPY ENDOSCOPIC ULTRASOUND performed by Jase Maya DO at [facility] ESOPHAGOGASTRIC FUNDOPLASTY 04/10/08 Laparoscopic Sayra fundoplication, left lower quadrant lower abdominal incarcerated incisional hernia repair with dual guard mesh, appr. 3 x 3cm defect 04/10/08 Dr. Millan ESOPHAGOGASTRIC FUNDOPLASTY 11/08/09 LAPAROSCOPIC ESOPHAGOGASTRIC FUNDOPLASTY SAYRA performed by YUSRA KAPLAN at [facility] IMPLANT MESH W/ ABD HERNIA REPR/DEBRIDE 02/02/2011 IMPLANTATION MESH WITH INCISIONAL/VENTRAL HERNIA performed by MARTI WHITE at [facility] INSER NIKOLAS CAT,W/O PUMP;5YR/OLD 01/23/2010 INSERT TUNNELED CENTRAL VENOUS CATHETER* performed by ROSALVA STACY at RADIOLOGY [facility] IR ARTERIOGRAM PELVIC 02/04/2011 ANGIOGRAPHY PELVIC COMPLETE GLOBAL performed by ROSALVA STACY at [facility] IR PLACEMENT IVC FILTER 02/05/08 DVT, PE, gastric ulcer Hgb 5.5 MUSCLE/FASCIA DEBRIDEMENT, FIRST 20 CM2 02/19/2011 DEBRIDEMENT SKIN SUBCUTANEOUS TISSUE AND MUSCLE performed by ADDY DEY at [facility] NEG PRESSURE WOUND THERAPY DME >50 SQ CM 02/19/2011 NEGATIVE PRESSURE WOUND THERAPY GREATER THAN 50SQ CM performed by ADDY DEY at [facility] NEG PRESSURE WOUND THERAPY DME >50 SQ CM 02/23/2011 NEGATIVE PRESSURE WOUND THERAPY GREATER THAN 50SQ CM performed by ADDY DEY at [facility] OTHER 04/11/08 Laparoscopic removal of retained holli drain 04/11/08 Dr. Alvarez PROSTHETIC MAT/MESH, ABD, NECROTIC, REMOVAL 02/02/2011 REMOVAL MESH ABDOMINAL WALL NECROTIZING SOFT TISSUE INFECTION performed by MARTI WHITE at [facility] REMOVE CATARACT, INSERT LENS PROSTH 08/10/11 L eye REMOVE CATARACT, INSERT LENS PROSTH 08/24/11 R eye REPAIR PARAESOPHAGEAL HERNIA 11/08/09 LAPAROSCOPIC REPAIR PARAESOPHAGEAL HIATUS HERNIA WITH OR WITHOUT FUNDOPLASTY, VAGOTOMY, OR PYLOROPLASTY performed by YUSRA KAPLAN at [facility] REPAIR RECURRENT INCISIONAL HERNIA 02/02/2011 REPAIR RECURRENT INCISIONAL HERNIA STRANGULATED performed by MARTI WHITE at [facility] REVISION OF ANKLE JOINT 1996 Ankle Joint Arthroplasty,right SUBQ DEBRIDEMENT, FIRST 20 CM2 02/23/2011 DEBRIDEMENT SKIN AND SUBCUTANEOUS TISSUE performed by ADDY DEY at [facility] TOTAL ABD HYSTERECTOMY W/WO REMOVAL OF TUBE(S) 2001 UPPER GI ENDOSCOPY/EXAM 11/08/09 UPPER GI ENDOSCOPY SIMPLE performed by YUSRA KAPLAN at [facility] VEIN BYPASS,FEMORAL-POPLITEAL 02/05/2011 BYPASS GRAFT WITH VEIN FEMORAL POPLITEAL performed by MARTI BILLINGSLEY at [facility] VENOGRAM EXTREMITY UNI-FLUOR 02/05/2011 IMAGING S&I EXTREMITY VEIN performed by MARTI BILLINGSLEY at [facility] Family History Problem Relation Age of Onset No Past Hx Father age 99 Hypertension Mother Hypertension Grandfather (Maternal) Other (Other) Grandfather (Maternal) PVD Diabetes Grandmother (Maternal) Gastro-intestinal disorder Brother hernia No Past Hx Brother No Past Hx Daughter Has patient ever had cancer? History of cancer, type: ? Endometrial cancer, Social History Tobacco Use Smoking status: Never Smokeless tobacco: Never Substance Use Topics Alcohol use: No Vaping/E-Cigarette Use Vaping/E-Cigarette Use Never User Vaping/E-Cigarette Substances Vaping/E-Cigarette Devices Tobacco/Alcohol screening completed today? Yes Hospital Care: Admissions (within the last year): Not Applicable ER within 30 days: No Does the patient have an Advance Directives/Living Will? Yes Last Physical Exam: Last physical exam: 01/2023 Does patient see primary provider regularly? Yes Does patient see other providers? Yes, Specialist Patient Care Team updated? Yes Review of patient's allergies indicates: Allergen Reactions Ben Inhibitors 2009 Stated that she does not have an allergy to Ben Inhibitors. 06/08/16 States she does not have allergy to Ben inhibitors 03/29/2019 Immunization History Administered Date(s) Administered COVID-19 mRNA, LNP-s, No Preserve, 2-Dose Series ([email or web address]) 05/27/2021 COVID-19, LNP-s, No Preserve, Rodrick-sucrose, Ages 12+ (Pfizer) 02/03/2022 COVID-19, MRNA-LNP, 23-24, PF, 30 MCG/0.3 mL, 12 YRS AND ABOVE, IM (Targazyme- Comirnaty) 04/27/2023 Covid-19 Ad26, Single Dose (PAX Streamline/J&J) 10/25/2020 Covid-19, Mrna, Lnp-s, Pf, Bivalent, 30 Mcg, IM, 12 yrs and above ([email or web address]) 06/09/2022 H1N1 2009 Influenza, IM 08/02/2009 Pneumococcal Conjugate Vacc, 13 Valent (Prevnar) 12/21/2014, 03/06/2015 Pneumococcal Polysaccharide PPV23 (Pneumovax) 07/07/2005, 06/08/2016 SEASONAL INFLUENZA, PF, 6 M & Above, IM , (FLULAVAL or FLUZONE) 03/23/2018 Season Influenza, Quad, PF, Adjuvanted, 65+ Yrs, IM (FLUAD) 03/30/2020 Seasonal Influenza, Quadrivalent Hd (Fluzone Hd) 05/05/2021, 06/04/2022, 04/27/2023 Seasonal Influenza, Quadrivalent, No Preserve, IM 04/21/2016, 03/29/2017 Seasonal Influenza, Split, IIV3, With Preserve, Inj 05/26/2005, 05/18/2007, 04/23/2008, 03/21/2009,04/15/2010, 04/29/2011, 03/30/2012, 04/12/2013, 04/04/2014, 03/06/2015 Seasonal Influenza, Trivalent, Adjuvanted, 65+ yrs 03/29/2019 Seasonal Influenza, Trivalent, High Dose, No Preserve, IM 03/06/2015 TDAP (age 10 and older)(Boostrix) 04/26/2019 TDAP (age 11 and older)(Adacel) 02/09/2008 Varicella Zoster Vaccine (Adult) 07/05/2008 Zoster Vaccine Recombinant (Shingrix) 03/29/2019, 05/29/2019 Current Outpatient Medications Medication Sig Dispense Refill [...] skin once a week. 6 mL 3 Pantoprazole Sodium 20 MG Oral Tablet Delayed Release (Protonix) TAKE 1 TABLET IN THE MORNING 90 Tablet 1 Metoprolol Tartrate 25 MG Oral Tablet (Lopressor) Take 1 Tablet by mouth in the morning and 1 Tablet before bedtime. 180 Tablet 3 No current facility-administered medications for this visit. 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 Yes Patient takes medications as prescribed? Yes Patient manages own medications: Yes Patient uses a pill box? Yes, refill(s) completed by self Dental Exam: No encouraged scheduling , patient has upper dentures Eye Screening: Yes: Every yearly Are you having trouble with hearing? Yes Do you use an assistive device to help your hearing? Yes bilateral Exercise Screening: does not exercise regularly Nutrition Assessment: Eats three meals a day Pain Screening: Are you having any pain? No Sleep Screening Tool 'STOP': Do you snore? No Do you feel fatigued during the day? Yes Do you wake up feeling like you haven't slept? Yes Have you been told you stop breathing at night? No Do you gasp for air or choke while sleeping? No Have you been told you have Sleep Apnea? No Do you have high blood pressure or are on medication(s) to control high blood pressure? Yes SCORE: If you check YES to two or more questions, make a referral for Obstructive Sleep Apnea Declinened kieran referral Patient and Caregiver Support System: Patient lives with a spouse Means of Transportation: Family transports Patient lives in One Story no steps and ramp Community Resources: Not Applicable Functional Status and ADL Skills: Has patient ever had an amputation? No Functional Assessment: 60- Requires occasional assistance but is able to care for needs Ambulation: Patient ambulates with assistive device. Walker Dressing: Gets clothes and dresses without any assistance: Independent Able to move freely in chair or bed including turning over: Independent Repositioning (bed or chair): Not applicable Transfers: Independent Toileting: Goes to bathroom, uses toilet, arranges clothes and returns without any assistance: Independent Toileting: continent of bowel and incontinent of bladder Feeding: Self Bathing: Self; walk in shower with chair with grab bars Requires moderate assistance with ADLs. Instrumental ADL's: Shopping: Moderate Assistance Housekeeping: Minimal Assistance Handling Finances: Moderate Assistance DME Vendor Name: Not Applicable Fall Risk Assessment: Can the patient demonstrate that she can stand from a sitting position? Yes Has the patient had a fall within the last 6 months? No Does the patient have a problem with her gait or balance? Yes Does the patient take 4 or more prescription medicines? Yes Does the patient use sedatives or narcotics? No Fall Risk Factors Present: Uses more than 4 medications Uses assistive devices Balance or gait disturbances Lower extremity weakness Visually impaired Older than age 70 Ttx-Fr-yrg-Go Test: Time began at 100. Patient stood from sitting position and walked approximately 10 feet, returned and sat down. Total time for dvw-zq-umi-go test was 12 seconds. Qoq-Od-sbd-Go Test completed? Yes Gender Specific Preventative Plan: Health Maintenance Topic Date Due Hepatitis B (1 of 3 - Risk 3-dose series) Never done COLONOSCOPY-EVERY 5 YRS AGES 18-100 01/05/2018 Diabetic Foot Exam 03/29/2020 Depression Screening 06/04/2023 HbA1c 07/29/2023 GFR 07/29/2023 CKD HGB USE SMARTSET 20330 01/27/2024 CKD PHOS USE SMARTSET 17724 01/27/2024 B-12 01/27/2024 Albumin/Creatinine Ratio 01/28/2024 Diabetic Eye Exam 02/20/2024 DXA Scan 12/02/2024 DTaP,Tdap,and Td Vaccines (3 - Td or Tdap) 04/26/2029 VITAMIN D LEVEL ONCE IN A LIFETIME-USE SMARTSET# [id number] Completed Influenza Vaccine (FLU shot) Completed Hepatitis C Screening Completed Zoster Vaccines Completed Pneumococcal Vaccine: 65+ Years Completed COVID-19 Vaccine Completed MENINGOCOCCAL (MENACTRA/MENVEO) Aged Out GARDASIL-HPV IMMUNIZATION SERIES Aged Out Follow Up/ Referrals/Handouts: Depression screening - completed Functional assessment - doing well Falls Risk screening - discussed, uses walker Exercise screening - encourage to be active Nutrition assessment -. Education Provided and Handouts Provided Pain screening - none Incontinence screening - patient does wear depends Patient has been verbally educated on the need or importance of Breast Cancer Screening, Cholesterol, Colon Cancer Screening, Diabetic Foot Exam, GFR, Glucose, Hemoglobin A1c, and Immunizations: flu,covid shingles and RSV Pt has completed the covid vaccines: yes including most recent Patient has completed the flu and shingrix Also got RSV done at pharmacy Risk and functional assessment (Primary) Age-related osteoporosis without current pathological fracture - Med reconciliation completed and compliance discussed. - pt to continue present medications. Anemia - Med reconciliation completed and compliance discussed. - pt to continue present medications. Benign hypertension with stage 3b chronic kidney disease (HCC) - Med reconciliation completed and compliance discussed. - pt to continue present medications. Gout - Med reconciliation completed and compliance discussed. - pt to continue present medications. History of pulmonary embolism - Med reconciliation completed and compliance discussed. - pt to continue present medications. HTN, goal below 140/90 - Med reconciliation completed and compliance discussed. - pt to continue present medications. Hyperlipidemia with target LDL less than 70 - Med reconciliation completed and compliance discussed. - pt to continue present medications. Lab Results Component Value Date/Time LDL (CALCULATED)-OUTSIDE LAB 143 (A) 01/15/2022 12:00 AM LDL CHOLESTEROL (CALCULATED) - [facility] 64 10/18/2020 09:45 AM LDL CHOLESTEROL (CALCULATED) - [facility] 50 01/03/2020 01:03 PM LDL CHOLESTEROL (DIRECT MEASURE) - [facility] NOT APPLICABLE 01/03/2020 01:03 PM LDL CHOLESTEROL (DIRECT MEASURE) - [facility] 54 11/03/2011 03:05 PM Type 2 diabetes mellitus with hemoglobin A1c goal of less than 8.0% (HCC) Type 2 diabetes mellitus with stage 3b chronic kidney disease (HCC) - Med reconciliation completed and compliance discussed. - pt to continue present medications. Hemoglobin AIC Results: Lab Results Component Value Date/Time HEMOGLOBIN A1C - [facility] 6.9 (H) 01/26/2023 12:23 PM HEMOGLOBIN A1C - [facility] 7.2 (H) 07/15/2022 04:08 PM HEMOGLOBIN A1C - [facility] 8.1 (H) 11/05/2021 10:48 AM HEMOGLOBIN A1C - [facility] 7.9 (H) 05/06/2020 01:29 PM HEMOGLOBIN A1C - [facility] 9.3 (H) 01/03/2020 01:03 PM HEMOGLOBIN A1C - [facility] 8.1 (H) 04/22/2018 11:37 AM Vitamin D deficiency - Med reconciliation completed and compliance discussed. - pt to continue present medications. Would patient like to schedule next AWV visit? Yes Taylor Morales RN documented in this encounter Miscellaneous Notes * Pt Handout (on AVS) - Taylor Morales RN - 06/08/2023 1:56 PM EST A1C A1C Does this test have other names? Hemoglobin A1c; HbA1c; glycosylated hemoglobin; glycohemoglobin; Glycated hemoglobin What is this test? A1C is a blood test that shows average blood sugar (glucose) levels over the last 3 months. The test is done to find out if a person has diabetes or prediabetes. It's also used to see how well a person with diabetes controls their blood sugar. The test can help guide diabetes treatment over time. Why do I need this test? You may need this test to check for prediabetes or diabetes. If you have diabetes or prediabetes, you may need this test to see how well you control your blood sugar. People with diabetes need to track their blood sugar (glucose) levels every day to make sure they aren?t too high or too low. The A1C test gives results for a longer period of time. It shows ifyour blood sugar has been too high on average over the last 3 months. Glucose sticks to hemoglobin in the blood. Hemoglobin is a protein in red blood cells that carries oxygen. When blood sugar is high, more glucose builds up and sticks to the hemoglobin. The A1C test measures how much of the hemoglobin is coated with sugar. You may have the test when a healthcare provider first works with you to treat your diabetes. You may then need to have the A1C test 2 or more times a year. This depends on the type of diabetes you have and how well it?s controlled. The [place] [employer] (ADA) advises an A1C test at least 2 times a year if you are meeting your blood sugar goals. If you aren?t meeting your goals or your medicine has changed, you should have the A1C test more often. What other tests might I have along with this test? If your healthcare provider tests you for diabetes, you may also have any of these tests: Fasting plasma glucose blood test (FPG) Oral glucose tolerance test (OGTT) Urine test to check for sugar, ketones, or protein What do my test results mean? Test results may vary depending on your age, gender, health history, the method used for the test, and other things. Your test results may not mean you have a problem. Ask your healthcare provider what your test results mean for you. A1C results are reported as a percentage. Here are what the results mean: A1C below 5.7%. This is normal. A1C from 5.7% to 6.4%. You may have prediabetes. This means you have a higher risk for diabetes in the future. A1C of 6.5% or above on 2 separate tests. You may have diabetes. The ADA says that people with diabetes should keep an A1C below 7%. The [place] [employer]ocrin[employer] advises an A1C of 6.5% or less. Your healthcare provider may give you other advice. This is based on your age, health conditions, and other things. How is this test done? The test is done with a blood sample. A needle is used to draw blood from a vein in your arm or hand. Does this test pose any risks? Having a blood test with a needle carries some risks. These include bleeding, infection, bruising, and feeling lightheaded. When the needle pricks your arm or hand, you may feel a slight sting or pain. Afterward, the site may be sore. What might affect my test results? Your blood sugar levels change throughout the day. This won't affect the A1C test result. If you have sickle cell anemia or other blood disorders, an A1C test may be less useful for diagnosing or watching diabetes. Your healthcare provider may tell you to use a different test that will work better for you. The test results may be less accurate if you have any of the below: Anemia Heavy bleeding Iron deficiency Kidney failure Liver disease How do I get ready for this test? You don't need to get ready for the test. Last Reviewed Date: 09/16/202119992658-8202 [employer]. All rights reserved. This information is not intended as a substitute for professional medical care. Always follow your healthcare professional's instructions. * Pt Handout (on AVS) - Taylor Morales RN - 06/08/2023 1:56 PM EST Images from the original note were not included. 64463 Diabetes and Kidney Disease Diabetes makes your body less able to use the foods you eat as sources of energy. As a result, sugar that the body uses as fuel (glucose) builds up in the blood. Over time, having too much glucose inyour blood can harm blood vessels and kidneys. By controlling diabetes, you can stay at a healthy blood glucose level. And you can slow or prevent kidney damage. Americans, , and Hispanics and Latinos have diabetes, chronic kidney disease, and kidney failure at rates higher than whites. People with diabetes should have their kidney function measured at least once a year with blood and urine tests. Having diabetes is the most common reason for needing dialysis or a kidney transplant. Note Visit your healthcare provider as scheduled. Follow your diet To get the most energy from the foods you eat and feel your best, you may have to follow a special diet. Work closely with your healthcare team. They can help you make a meal plan that's right for you. You may also need to: Eat less protein. Drink less fluid. Limit salt (sodium) intake. Eat foods that are low in phosphorus and potassium. Don't take or lower the amount of certain medicines that affect or are processed by the kidneys. Take insulin and diabetes medicine as directed Insulin is a hormone that helps your body use glucose. You may give yourself insulin to increase your body?s supply. Or you may take other medicines to help your body release more insulin or use insulin better. The stage of your kidney disease can reduce the amount of insulin your body needs. So your insulin injections or other medicine may be adjusted. Talk with your provider if your blood glucose level is often too low. Closely watch your blood glucose with a meter as directed by your provider. Threetypes of blood pressure medicines help people with both diabetes and high blood pressure reduce their risk of getting kidney disease. And reduce the risk of worsening existing kidney disease. These medicines are: Angiotensin-converting enzyme (BEN) inhibitors Angiotensin receptor blockers (ARBs) Sodium-glucose co-transporter 2 (SGLT2) inhibitors Studies show these medicines work even in people with diabetes who don't have high blood pressure. Your provider will monitor how much protein your kidneys release into the urine as a sign of how diabetes is affecting your kidneys. One or two times a year, you'll also need a blood test to see how your kidneys are processing other substances. Controlling these other risk factors for kidney disease and diabetes will also help slow kidney disease progression: Quitting smoking as soon as possible, if you smoke Controlling high blood pressure Limiting alcohol Staying at a healthy body weight Getting regular physical activity Stay active Exercise helps the body use glucose. For best results: Talk with your provider before starting a fitness program. Ask your provider what activities you should do, how often you should exercise, and for how long. Eat 1 to 2 hours before you exercise. Check your blood sugar right before you exercise to see ifit's safe to exercise at that time. Keep a pack of diabetes supplies and snacks close at hand. These snacks can help prevent low blood sugar (hypoglycemia). Always wear a medic alert necklace, bracelet, or information tag, which states that you have diabetes and/or other health concerns. Last Reviewed Date: 08/19/202119997845-2938 [employer]. All rights reserved. This information is not intended as a substitute for professional medical care. Always follow your healthcare professional's instructions. * Pt Handout (on AVS) - Taylor Morales RN - 06/08/2023 1:56 PM EST Images from the original note were not included. 32272 Managing Your Glucose Level for Diabetes and Kidney Disease Diabetes makes your body less able to use the foods you eat as energy. This causes sugar (glucose) to build up in the blood. Over time, having too much glucose in your blood can harm your blood vessels and kidneys. The amount of food you eat each day should match the amount of energy your body needs. The best way to keep your blood sugar at a healthy level is with diet, exercise, and medicines. Follow a strict diet for diabetes, exercise regularly, and take medicines as directed. By managing diabetes, you can keep a healthy blood sugar level. This can slow or prevent kidney damage. And it will allow certain diabetes medicines that act in the kidneys to work well. Test your blood sugar levelas often as directed. Talk with your healthcare provider if your blood sugar level is often under 80 or over 200. Test your blood sugar Wash your hands with soap and clean, running water. Dry them thoroughly. Follow directions for placing a test strip in the meter. Prick the side of your finger with a small needle (lancet). Squeeze your finger gently until youget enough blood. If you can't get enough blood, hold your hand down at your side and gently shake it. Place a drop of blood on the test trip according to your meter?s instructions. Read and record your results. Too little blood sugar If your blood sugar is too low, you may get a headache or feel hungry, weak, shaky, dizzy, sweaty, or nervous. Check your blood sugar level. If it's too low: Eat a fast-acting sugar, such as 6 hard candies, 1/2 cup juice, or 3 to 4 glucose tablets. Test your glucose again in 15 minutes. If your glucose is still too low, eat another dose of fast-acting sugar. Get medical care if youaren?t better after that. Have a healthy snack once your blood sugar is back in the normal range Too much blood sugar If your glucose is too high, you may feel thirsty, weak, dizzy, or nauseated. You may also have blurry vision or need to pee often. Check your glucose level. If it's too high: Drink a sugar-free liquid, such as water or diet soda. Take extra insulin or medicine if your provider has told you to do so. Call your provider if you're not feeling better within 1 hour. Last Reviewed Date: 06/18/202119997082-1796 [employer]. All rights reserved. This information is not intended as a substitute for professional medical care. Always follow your healthcare professional's instructions. * Pt Handout (on AVS) - Taylor Morales RN - 06/08/2023 1:56 PM EST Images from the original note were not included. 51623 Preventing Osteoporosis: Meeting Your Calcium Needs Your body needs calcium to build and repair bones. But it can't make calcium on its own. That's whyit's important to eat calcium-rich foods. Some foods are naturally rich in calcium. Others have calcium added (fortified). It's best to get calcium from the foods you eat. But if you can't get enough, you may want to take calcium supplements. To meet your daily calcium needs, try the foods listed below. Dairy Fish & beans Other sources Source Calcium (mg) per serving Source Calcium (mg) per serving Source Calcium (mg) per serving Low-fat yogurt, plain 415 mg/8 oz. Sardines, [place], canned, with bones 351 mg/3 oz. Oatmeal, instant, fortified 215 mg/1 cup Nonfat milk 302 mg/1 cup [place], sockeye, canned, with bones 239 mg/3 oz. Tofu made with calcium sulfate 204 mg/3 oz. Low-fat milk 297 mg/1 cup Soybeans, fresh, boiled 131 mg/1/2 cup Collards 179 mg/1/2 cup [place] cheese 272 mg/1 oz. White beans, cooked 81 mg/1/2 cup [place] muffin, whole wheat 175 mg/1 muffin Cheddar cheese 205 mg/1 oz. [place] beans, cooked 79 mg/1/2 cup Kale 90 mg/1/2 cup Ice cream strawberry 79 mg/1/2 cup [place], navel 56 mg/1 medium Note: Calcium levels may vary depending on brand and size. Daily calcium needs 14 to 18 years old: 1,300 mg 19 to 30 years old: 1,000 mg 31 to 50 years old: 1,000 mg 51 to 70 years old, women: 1,200 mg 51 to 70 years old, men: 1,000 mg or nursin to 18 years old: 1,300 mg, 19 to 50 years old: 1,000 mg Older than 70 (women and men): 1,200 mg Last Reviewed Date: 05/19/202119996879-3737 [employer]. All rights reserved. This information is not intended as a substitute for professional medical care. Always follow your healthcare professional's instructions. documented in this encounter Plan of Treatment Upcoming Encounters Date Type Department Care Team (Late st Contact Info) Description 08/04/2023 1:50 PM EST Office Visit Family Medicine [address] [place] [phone] Madhuri Galicia[address] [place] [address] 01/19/2024 1:30 PM EDT Imaging Radiology [address] [place] [address] 06/14/2024 1:00 PM EST Nurse Only Ancillary [address] [place] [id number] [place], Nurse Annual [address] [place] [id number] Health Maintenance Due Date Last Done Comments Hepatitis B (1 of 3 - Risk 3-dose series) 2007 COLONOSCOPY-EVERY 5 YRS AGES 18-100 01/05/2018 01/05/2013, 01/05/2013, 06/03/2011, Additional history exists Diabetic Foot Exam 03/29/2020 03/29/2019, 0 03/03/2016, 01/08/2015, Additional history exists Depression Screening 06/04/2023 06/04/2022 GFR 07/29/2023 01/26/2023, 12/19, 10/20/2021, Additional history exists HbA1c 07/29/2023 01/26/2023, 1202/2022, 01/15/2022, Additional history exists B-12 01/27/2024 01/26/2023, 10/18, 10/18/2020, Additional history exists CKD HGB USE SMARTSET 95152 01/27/202401/26, 01/15/2022, 06/12/2021, Additional history exists CKD PHOS USE SMARTSET 87011 01/27/202401/16, 11/05/2021, 10/18/2020, Additional history exists Albumin/Creatinine Ratio 01/28/2024 023, 11/06/2021, 01/03/2020, Additional history exists Diabetic Eye Exam 02/20/2024 02/19/2023, , 11/23/2021, Additional history exists DXA Scan 12/02/2024 12/02/2022, 11/16, 02/11/2015, Additional history exists DTaP,Tdap,and Td Vaccines (3 - Td or Tdap) 04/26/2029 04/26/2019, 02/09/2008 Hepatitis C Screening Completed 01/20/2010, 010 Pneumococcal Vaccine: 65+ Years Completed 06/08/2016, 03/06/2015, 12/21/2014, Additional history exists Zoster Vaccines Completed 05/29/2019, 03/19, 07/05/2008 VITAMIN D LEVEL ONCE IN A LIFETIME-USE SMARTSET# 40533 Completed 01/26/2023, 01/03/2020, 04/22/2018, Additional history exists [...] this encounter Medical Devices Implanted Type Area Pet Ambassador Device Identifier Shelf Expiration Date Model / Serial / Lot Alloderm 2x4 Sheet [id number] - [id number] Implanted:Qty : 1 on 11/08/2009 [place] [facility] [place] - Human N/A: Abdomen [employer] AFIA 02/16/2011 [id number] / / [id number] Mesh 10 X 14 [id number] - [id number] Implanted:Qty : 1 on 02/02/2011 [place] [facility] [place] N/A: Abdomen [employer] 01/03/2015 [id number] / / [id number] Pelvic Coil 2 Implanted:Qty : 5 on 02/04/2011 at [place] [facility] [place] Left: Pelvis [place] / / [id number] Description:figure 8 documented as of this encounter Visit Diagnoses Diagnosis Risk and functional assessment- Primary Screening for unspecified condition Age-related osteoporosis without current pathological fracture Senile osteoporosis Anemia Anemia, unspecified Benign hypertension with stage 3b chronic kidney disease (HCC) Gout Gout, unspecified History of pulmonary embolism Personal history of pulmonary embolism HTN, goal below 140/90 Unspecified essential hypertension Hyperlipidemia with target LDL less than 70 Other and unspecified hyperlipidemia Type 2 diabetes mellitus with hemoglobin A1c goal of less than 8.0% (HCC) Vitamin D deficiency Unspecified vitamin D deficiency documented in this encounter Advance Directives Documents on File Type Date Recorded Patient Financial Foundations Associate Expl anation Advance Directives and Livin g Will 09/29/2017 LIVING WILL Power of Bleaching Machine Operator 09/29/2017 POWER OF A TTORNEY Latest [...] the patient have Health Care Power of Bleaching Machine Operator? No Full Code 01/18/2010 8:53 PM 01/30/2010 6:41 PM This o rder reflects the patients wishes and were consensually agreed upon. Question Answer Comments Discussion of Advance Directives occurred with: Patient Does the patient have a Living Will? No Does the patient have Health Care Power of Bleaching Machine Operator? No Full Code 11/18/2009 11:54 AM 11/19/2009 4:09 PM This o rder reflects the patients wishes and were consensually agreed upon. Question Answer Comments Discussion of Advance Directives occurred with: Patient Does the patient have a Living Will? No Does the patient have Health Care Power of Bleaching Machine Operator? No Full Code 11/13/2009 8:29 AM 11/14/2009 5:08 PM This order reflects the patients wishes and were consensually agreed upon. Care Teams Machine Design Engineer Relationship Specialty Start Date End Date Madhuri Galicia DO [address] [place] [address] [place] [id number] PCP - General Internal Medicine 02/16/17 documented as of this encounter
--- OUTSIDE RECORDS SUMMARY | 2023-07-12 11:06 | External Medical Summary | Summary of Care ---
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 06/08/16 States she does not have allergy to Ben inhibitors 03/29/2019 documented as of this encounter (statuses as of 06/15/2023) Medications Medication Sig Dispensed Refills Start Date [...] 07/15/2022 Active Apixaban 5 MG Oral Tablet (Eliquis)Indicatio [...] once a week. 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 icoagulant therapy [...] as of this encounter (statuses as of 06/15/2023) Immunizations Name Administration Dates Next Due COVID-19 mRNA, LNP-s, No Pre serve, 2-Dose Series (Fantastic.cl) 05/27/2021 COVID-19, LNP-s, No Preserve , Rodrick-sucrose, Ages 12+ (Fantastic.cl) 02/03/2022 COVID-19, MRNA-LNP, 23-24, P F, 30 MCG/0.3 mL, 12 YRS AND ABOVE, IM ([address]) 04/27/2023 Covid-19 Ad26, Single Dose (BlooBox/J&J) 10/25/2020 Covid-19, Mrna, Lnp-s, Pf, B ivalent, 30 Mcg, IM, 12 yrs and above (Fantastic.cl) 06/09/2022 H1N1 2009 Influenza, IM 08/02/2009 Pneumococcal Conjugate Vacc, 13 Valent (Prevnar) 03/06/2015,12/21/2014 Pneumococcal Polysaccharide PPV23 (Pneumovax) 06/08/2016,07/07/2005 SEASONAL INFLUENZA, PF, 6 M & Above, IM , (FLULAVAL or FLUZONE) 03/23/2018 Season Influenza, Quad, PF, Adjuvanted, 65+ Yrs, IM (FLUAD) 03/30/2020 Seasonal Influenza, Quadriva lent Hd (Fluzone Hd) 04/27/2023,06/04/2022,05/05/2021 Seasonal Influenza, Quadriva lent, No Preserve, IM 03/29/2017,04/21/2016 Seasonal Influenza, Split, I IV3, With Preserve, Inj 03/06/2015,04/04/2014,04/12/2013,03/30,04/29/2011,04/15/2010,03/21/2009 ,04/23/2008,05/18/2007,05/26/2005 Seasonal Influenza, Trivalen t, Adjuvanted, 65+ yrs [...] this encounter Patient Instructions * Patient Instructions* Mello Morales RN - 06/08/2023 1:18 PM EST [...] the day. Mary Jane Patient Education Copyright 2009 - 2010 Mary Jane except where otherwise [...] Wear support stockings (TEDs)if you have edema Mello Morales RN 06/08/2023 Kegel Exercises Kegel exercises [...] more effective. Mary Jane Patient Education Copyright 2009 - 2010 Mary Jane except where otherwise [...] documented in this encounter Progress Notes * Mello Morales RN - 06/08/2023 1:29 PM EST [...] 2001 Endometrial cancer (HCC) 1980 D&C in [place] Gastric ulcer 11/08/2009 Heme + stool HTN, [...] ABDOMINAL AORTA performed by MARTI BILLINGSLEY at OR [facility] COLONOSCOPY W/ BIOPSY (RECTUM) 02/24/07 repeat 3 yrs adenomatous tissue COLONOSCOPY, DIAGNOSTIC (RECTUM) 01/05/2013 COLONOSCOPY FLEXIBLE PROXIMAL DIAGNOSTIC performed by Jase Maya DO at ENDOSCOPY [facility] DRAIN COMPL POSTOP WOUND INFECTION 02/05/2011 INCISION AND DRAINAGE COMPLEX POST OPERATIVE WOUND INFECT performed by MARTI WHITE at [facility] EGD, FLEXIBLE, DIAGNOSTIC 09/26/09 Suspected gastroparesis, f/u with UGI EGD, FLEXIBLE, DIAGNOSTIC 11/13/09 UPPER GI ENDOSCOPY DIAGNOSTIC performed by YUSRA KAPLAN at [facility] EGD, FLEXIBLE, DIAGNOSTIC 03/14/2012 UPPER GI ENDOSCOPY DIAGNOSTIC performed by Jase Maya DO at ENDOSCOPY [facility] EGD, FLEXIBLE, DIAGNOSTIC 03/17/2012 UPPER GI ENDOSCOPY DIAGNOSTIC performed by Jase Maya DO at ENDOSCOPY [facility] EGD, FLEXIBLE, DIAGNOSTIC 01/05/2013 UPPER GI ENDOSCOPY DIAGNOSTIC performed by Jase Maya DO at ENDOSCOPY [facility] EGD, FLEXIBLE, DIAGNOSTIC 09/27/2014 inflammatory tissue on bx, rpeat 1 yr/ESOPHAGOGASTRODUODENOSCOPY (EGD), FLEXIBLE, TRANSORAL, DIAGNOSTIC performed by Jase Maya DO at ENDOSCOPY [facility] EGD, FLEXIBLE, DIAGNOSTIC 10/08/2015 reflux esophagitis, retained food/ESOPHAGOGASTRODUODENOSCOPY (EGD), FLEXIBLE, TRANSORAL, DIAGNOSTICperformed by Jase Maya DO at ENDOSCOPY [facility] EGD, FLEXIBLE, W/BIOPSY 02/10/08 mild chronic gastric inflammation EGD, W/ENDOSCOPIC US 03/03/2013 UPPER GI ENDOSCOPY ENDOSCOPIC ULTRASOUND performed by Jase Maya DO at [facility] ESOPHAGOGASTRIC FUNDOPLASTY 04/10/08 Laparoscopic Sayra fundoplication, left lower quadrant lower abdominal incarcerated incisional hernia repair with dual guard mesh, appr. 3 x 3cm defect 04/10/08 Dr. Millan ESOPHAGOGASTRIC FUNDOPLASTY 11/08/09 LAPAROSCOPIC ESOPHAGOGASTRIC FUNDOPLASTY SAYRA performed by YUSRA KAPLAN at OR [facility] IMPLANT MESH W/ ABD HERNIA REPR/DEBRIDE 02/02/2011 IMPLANTATION MESH WITH INCISIONAL/VENTRAL HERNIA performed by MARTI WHITE at OR [facility] INSER NIKOLAS CAT,W/O PUMP;5YR/OLD 01/23/2010 INSERT TUNNELED CENTRAL VENOUS CATHETER* performed by ROSALVA STACY at RADIOLOGY [facility] IR ARTERIOGRAM PELVIC 02/04/2011 ANGIOGRAPHY PELVIC COMPLETE GLOBAL performed by ROSALVA STACY at RADIOLOGY [facility] IR PLACEMENT IVC FILTER 02/05/08 DVT, PE, gastric ulcer Hgb 5.5 MUSCLE/FASCIA DEBRIDEMENT, FIRST 20 CM2 02/19/2011 DEBRIDEMENT SKIN SUBCUTANEOUS TISSUE AND MUSCLE performed by ADDY DEY at OR [facility] NEG PRESSURE WOUND THERAPY DME >50 SQ CM 02/19/2011 NEGATIVE PRESSURE WOUND THERAPY GREATER THAN 50SQ CM performed by ADDY DEY at OR [facility] NEG PRESSURE WOUND THERAPY DME >50 SQ CM 02/23/2011 NEGATIVE PRESSURE WOUND THERAPY GREATER THAN 50SQ CM performed by ADDY DEY at OR [facility] OTHER 04/11/08 Laparoscopic removal of retained holli drain 04/11/08 Dr. Alvarez PROSTHETIC MAT/MESH, ABD, NECROTIC, REMOVAL 02/02/2011 REMOVAL MESH ABDOMINAL WALL NECROTIZING SOFT TISSUE INFECTION performed by MARTI WHITE at OR [facility] REMOVE CATARACT, INSERT LENS PROSTH 08/10/11 L eye REMOVE CATARACT, INSERT LENS PROSTH 08/24/11 R eye REPAIR PARAESOPHAGEAL HERNIA 11/08/09 LAPAROSCOPIC REPAIR PARAESOPHAGEAL HIATUS HERNIA WITH OR WITHOUT FUNDOPLASTY, VAGOTOMY, OR PYLOROPLASTY performed by YUSRA KAPLAN at OR [facility] REPAIR RECURRENT INCISIONAL HERNIA 02/02/2011 REPAIR RECURRENT INCISIONAL HERNIA STRANGULATED performed by MARTI WHITE at OR [facility] REVISION OF ANKLE JOINT 1996 Ankle Joint Arthroplasty,right SUBQ DEBRIDEMENT, FIRST 20 CM2 02/23/2011 DEBRIDEMENT SKIN AND SUBCUTANEOUS TISSUE performed by ADDY DEY at OR [facility] TOTAL ABD HYSTERECTOMY W/WO REMOVAL OF TUBE(S) 2001 UPPER GI ENDOSCOPY/EXAM 4/23/10 UPPER GI ENDOSCOPY SIMPLE performed by YUSRA KAPLAN at OR [facility] VEIN BYPASS,FEMORAL-POPLITEAL 02/05/2011 BYPASS GRAFT WITH VEIN FEMORAL POPLITEAL performed by MARTI BILLINGSLEY at OR [facility] VENOGRAM EXTREMITY UNI-FLUOR 02/05/2011 IMAGING S&I EXTREMITY VEIN performed by MARTI BILLINGSLEY at OR [facility] Family History Problem Relation Age of Onset [...] COVID-19 mRNA, LNP-s, No Preserve, 2-Dose Series (Fantastic.cl) 05/27/2021 COVID-19, LNP-s, No Preserve, Rodrick-sucrose, Ages 12+ (Pfizer) 02/03/2022 COVID-19, MRNA-LNP, 23-24, PF, 30 MCG/0.3 mL, 12 YRS AND ABOVE, IM ([address] [employer]) 04/27/2023 Covid-19 Ad26, Single Dose (BlooBox/J&J) 10/25/2020 Covid-19, Mrna, Lnp-s, Pf, Bivalent, 30 Mcg, IM, 12 yrs and above (Fantastic.cl) 06/09/2022 H1N1 2009 Influenza, IM 08/02/2009 Pneumococcal [...] weakness Visually impaired Older than age 70 Uhp-Oq-hmu-Go Test: Time began at 100. Patient stood from sitting position and walked approximately 10 feet, returned and sat down. Total time for rip-sg-xte-go test was 12 seconds. Gnr-Mh-bwu-Go Test completed? Yes Gender Specific Preventative Plan: Health Maintenance Topic Date Due Hepatitis B (1 of 3 - Risk 3-dose series) Never done COLONOSCOPY-EVERY 5 YRS AGES 18-100 01/05/2018 Diabetic Foot Exam 03/29/2020 Depression Screening 06/04/2023 HbA1c 07/29/2023 GFR 07/29/2023 CKD HGB USE SMARTSET 48379 01/27/2024 CKD PHOS USE SMARTSET 49849 01/27/2024 B-12 01/27/2024 Albumin/Creatinine Ratio 01/28/2024 Diabetic Eye Exam 02/20/2024 DXA Scan 12/02/2024 DTaP,Tdap,and Td Vaccines (3 - Td or Tdap) 04/26/2029 VITAMIN D LEVEL ONCE IN A LIFETIME-USE SMARTSET# 83588 Completed Influenza Vaccine (FLU shot) Completed Hepatitis [...] like to schedule next AWV visit? Yes Mello Morales RN documented in this encounter Miscellaneous Notes * Addendum Note - Mello Morales RN - 06/15/2023 3:06 PM ESTAddended by: MELLO MORALES on: 06/15/2023 03:06 PM Modules accepted: Orders * ACP (Advance Care Planning) - Mello Morales RN - 06/15/2023 3:06 PM EST Images from the original note were not included. Patient-centered Communication 06/15/2023 The patient/surrogate voluntarily agreed to participate in advance care planning discussion. They were advised that this is a separate service which may incur out of pocket cost in the form of copayment and/or deductibles. Location: Clinic Individual(s) present for conversation: Patient Decisions Additional Comments Synopsis SmartLink Most Recent Value Past ~10 years 06/15/2023 15:01 Additional Comments Additional Comments: reviewed pts document and confirmed Polo KING, and daughter Monica Payne as first alternate. Referring My[facility] Choices team for follow up as document needs reviewed, missing witnesses signatures. 06/15/2023 reviewed pts document and confirmed Polo KING, and daughter Monica Payne as first alternate. Referring MyCare Choices team for follow up as document needs reviewed, missing witnesses signatures. Discerning What Matters Most to the Patient: Source: Content from Respecting Choices Program Aligning Care With What Matters Most: No data to display Rationale for Decisions Source: Content from Respecting Choices Program 10 minutes spent in direct [id number] discussion today, Mello Morales RN * Pt Handout (on AVS) - Mello Morales RN - 06/08/2023 1:56 PM EST [...] have and how well it?s controlled. The [place] Diabetes Association (ADA) advises an A1C test [...] should keep an A1C below 7%. The [place] Association of Clinical Endocrinologists advises an A1C [...] ready for the test. Last Reviewed Date: 09/16/202119991078-1871 [employer] All rights reserved. This information is not intended as a substitute for professional medical care. Always follow your healthcare professional's instructions. * Pt Handout (on AVS) - Mello Morales RN - 06/08/2023 1:56 PM EST Images from the original note were not included. 93214 Diabetes and Kidney Disease Diabetes makes your [...] and/or other health concerns. Last Reviewed Date: 08/19/202119990453-0553 [employer] All rights reserved. This information is not intended as a substitute for professional medical care. Always follow your healthcare professional's instructions. * Pt Handout (on AVS) - Mello Morales RN - 06/08/2023 1:56 PM EST Images from the original note were not included. [address]98 Managing Your Glucose Level for Diabetes and [...] better within 1 hour. Last Reviewed Date: 06/18/202119996786-0759 [employer] All rights reserved. This information is not intended as a substitute for professional medical care. Always follow your healthcare professional's instructions. * Pt Handout (on AVS) - Mello Morales RN - 06/08/2023 1:56 PM EST Images from the original note were not included. 06404 Preventing Osteoporosis: Meeting Your Calcium Needs Your [...] Low-fat yogurt, plain 415 mg/8 oz. Sardines, Dewitt, canned, with bones 351 mg/3 oz. Oatmeal, instant, fortified 215 mg/1 cup Nonfat milk 302 mg/1 cup [place], sockeye, canned, with bones 239 mg/3 oz. Tofu made with calcium sulfate 204 mg/3 oz. Low-fat milk 297 mg/1 cup Soybeans, fresh, boiled 131 mg/1/2 cup Collards 179 mg/1/2 cup Namibian cheese 272 mg/1 oz. White beans, cooked 81 mg/1/2 cup Czech muffin, whole wheat 175 mg/1 muffin Cheddar cheese 205 mg/1 oz. Barrera beans, cooked 79 mg/1/2 cup Kale 90 mg/1/2 cup Ice cream strawberry 79 mg/1/2 cup Elliott, navel 56 mg/1 medium Note: Calcium levels [...] and men): 1,200 mg Last Reviewed Date: 05/19/202119999582-6600 [employer]. All rights reserved. This information is not intended as a substitute for professional medical care. Always follow your healthcare professional's instructions. documented in this encounter Plan of Treatment Upcoming Encounters Date Type Department Care Team (Late st Contact Info) Description 08/04/2023 1:50 PM EST Office Visit Family Medicine [address] [place] [phone] [address] [place] [address] 01/19/2024 1:30 PM EDT Imaging Radiology [address] [place] [phone] 06/14/2024 1:00 PM EST Nurse Only Ancillary [address] [place] [address] [place], Nurse Annual Wellness [address] [place] [address] [place] [address] Health Maintenance Due Date Last Done Comments [...] Additional history exists CKD HGB USE SMARTSET 13874 01/27/202401/26, 01/15/2022, 06/12/2021, Additional history exists CKD PHOS USE SMARTSET 72187 01/27/202401/16, 11/05/2021, 10/18/2020, Additional history exists Albumin/Creatinine [...] D LEVEL ONCE IN A LIFETIME-USE SMARTSET# [id number] Completed 01/26/2023, 01/03/2020, 04/22/2018, Additional history exists [...] this encounter Medical Devices Implanted Type Area Clinical Microbiologist Device Identifier Shelf Expiration Date Model / Serial / Lot Alloderm 2x4 Sheet [id number] - [id number] Implanted:Qty : 1 on 11/08/2009 at OR [facility] Tissue - Human N/A: Abdomen LIFE CE[employer] AFIA 02/16/2011 [id number] / / [id number] Mesh 10 X 14 [id number] - [id number] Implanted:Qty : 1 on 02/02/2011 at OR [facility] N/A: Abdomen [employer] AFIA 01/03/2015 [id number] / / [id number] Pelvic Coil 2 Implanted:Qty : 5 on 02/04/2011 at RADIOLOGY [facility] Left: [facility] Di[employer] / / [id number] Description:figure 8 documented as of this encounter [...] Vitamin D deficiency Unspecified vitamin D deficiency Advanced care planning/counseling discussion Other specified counseling documented in this encounter Advance Directives Documents on File Type Date Recorded 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 No Full Code 01/18/2010 8:53 PM 01/30/2010 6:41 PM This o rder reflects the patients wishes and were consensually agreed upon. Question Answer Comments Discussion of Advance Directives occurred with: Patient Does the patient have a Living Will? No Does the patient have Health Care Power of Electronic Calibration Technician? No Full Code 11/18/2009 11:54 AM 11/19/2009 4:09 PM This o rder reflects the patients wishes and were consensually agreed upon. Question Answer Comments Discussion of Advance Directives occurred with: Patient Does the patient have a Living Will? No Does the patient have Health Care Power of Electronic Calibration Technician? No Full Code 11/13/2009 8:29 AM 11/14/2009 5:08 PM This order reflects the patients wishes and were consensually agreed upon. 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
--- OUTSIDE RECORDS SUMMARY | 2023-07-12 11:06 | External Medical Summary | Summary of Care ---
Author Name Unknown Organization [facility] Address [address] [place] [address] Phone [phone] Care Team Providers Care Communications Systems Engineer Name Role Phone Madhuri Galicia DO Primary Care Provider [phone] Reason for Visit * Reason Comments Adult Annual Wellness Visit, Subsequent Visit Encounter Details Date Type Department Care Team (Late st Contact Info) Description 06/08/2023 1:00 PM EST Nurse Only Ancillary [address] [place] [address] [place], Nurse [address] [place] [address] Adult Annual Wellness Visit, Subsequent Visit Allergies [...] MANAGEMENT 11/18/200905/05 Overview: Stefanie Powell RN Outpatient Library DirectorRegulatory Specialist number [phone] Fax number [phone] Hypotension 11/08/2009 12/19/2012 Follow-up examination, follo wing [...] mRNA, LNP-s, No Pre serve, 2-Dose Series ([employer]) 05/27/2021 COVID-19, LNP-s, No Preserve , Rodrick-sucrose, Ages 12+ ([employer]) 02/03/2022 COVID-19, MRNA-LNP, 23-24, P F, 30 MCG/0.3 mL, 12 YRS AND ABOVE, IM ([employer]) 04/27/2023 Covid-19 Ad26, Single Dose ([employer]) 10/25/2020 Covid-19, Mrna, Lnp-s, Pf, B ivalent, 30 Mcg, IM, 12 yrs and above ([employer]) 06/09/2022 H1N1 2009 Influenza, IM 08/02/2009 Pneumococcal [...] 2001 Endometrial cancer (HCC) 1980 D&C in [place] Gastric ulcer 11/08/2009 Heme + stool HTN, [...] AORTA performed by MARTI BILLINGSLEY at OR [facility] COLONOSCOPY W/ BIOPSY (RECTUM) 02/24/07 repeat 3 yrs adenomatous tissue COLONOSCOPY, DIAGNOSTIC (RECTUM) 01/05/2013 COLONOSCOPY FLEXIBLE PROXIMAL DIAGNOSTIC performed by Jase Maya DO at [facility] DRAIN COMPL POSTOP WOUND INFECTION 02/05/2011 INCISION [...] performed by Jase Maya DO at ENDOSCOPY [facility] EGD, FLEXIBLE, DIAGNOSTIC 03/17/2012 UPPER GI ENDOSCOPY DIAGNOSTIC performed by Jase Maya DO at [facility] EGD, FLEXIBLE, DIAGNOSTIC 01/05/2013 UPPER GI ENDOSCOPY DIAGNOSTIC performed by Jase Maya DO at ENDOSCOPY [facility] EGD, FLEXIBLE, DIAGNOSTIC 09/27/2014 inflammatory tissue on bx, rpeat 1 yr/ESOPHAGOGASTRODUODENOSCOPY (EGD), FLEXIBLE, TRANSORAL, DIAGNOSTIC performed by Jase Maya DO at ENDOSCOPY [facility] EGD, FLEXIBLE, DIAGNOSTIC 10/08/2015 reflux esophagitis, retained food/ESOPHAGOGASTRODUODENOSCOPY (EGD), FLEXIBLE, TRANSORAL, DIAGNOSTICperformed by Jase Maya DO at ENDOSCOPY [facility] EGD, FLEXIBLE, W/BIOPSY 02/10/08 mild chronic gastric inflammation EGD, W/ENDOSCOPIC US 03/03/2013 UPPER GI ENDOSCOPY ENDOSCOPIC ULTRASOUND performed by Jase Maya DO at [facility] ESOPHAGOGASTRIC FUNDOPLASTY 04/10/08 Laparoscopic Sayra fundoplication, left lower quadrant lower abdominal incarcerated incisional hernia repair with dual guard mesh, appr. 3 x 3cm defect 04/10/08 Dr. Millan ESOPHAGOGASTRIC FUNDOPLASTY 11/08/09 LAPAROSCOPIC ESOPHAGOGASTRIC FUNDOPLASTY SAYRA performed by YUSRA KAPLAN at OR [facility] IMPLANT MESH W/ ABD HERNIA REPR/DEBRIDE 02/02/2011 IMPLANTATION MESH WITH INCISIONAL/VENTRAL HERNIA performed by MARTI WHITE at OR [facility] INSER NIKOLAS CAT,W/O PUMP;5YR/OLD 01/23/2010 INSERT TUNNELED CENTRAL VENOUS CATHETER* performed by ROSALVA STACY at RADIOLOGY [facility] IR ARTERIOGRAM PELVIC 02/04/2011 ANGIOGRAPHY PELVIC COMPLETE GLOBAL performed by ROSALVA STACY at RADIOLOGY [facility] IR PLACEMENT IVC FILTER 02/05/08 DVT, PE, gastric ulcer Hgb 5.5 MUSCLE/FASCIA DEBRIDEMENT, FIRST 20 CM2 02/19/2011 DEBRIDEMENT SKIN SUBCUTANEOUS TISSUE AND MUSCLE performed by ADDY DEY at OR [facility] NEG PRESSURE WOUND THERAPY DME >50 SQ CM 02/19/2011 NEGATIVE PRESSURE WOUND THERAPY GREATER THAN 50SQ CM performed by ADDY DEY at OR [facility] NEG PRESSURE WOUND THERAPY DME >50 SQ CM 02/23/2011 NEGATIVE PRESSURE WOUND THERAPY GREATER THAN 50SQ CM performed by ADDY DEY at OR [facility] OTHER 04/11/08 Laparoscopic removal of retained holli drain 04/11/08 Dr. Alvarez PROSTHETIC MAT/MESH, ABD, NECROTIC, REMOVAL 02/02/2011 REMOVAL MESH ABDOMINAL WALL NECROTIZING SOFT TISSUE INFECTION performed by MARTI WHITE at OR [facility] REMOVE CATARACT, INSERT LENS PROSTH 08/10/11 L eye REMOVE CATARACT, INSERT LENS PROSTH 08/24/11 R eye REPAIR PARAESOPHAGEAL HERNIA 11/08/09 LAPAROSCOPIC REPAIR PARAESOPHAGEAL HIATUS HERNIA WITH OR WITHOUT FUNDOPLASTY, VAGOTOMY, OR PYLOROPLASTY performed by YUSRA KAPLAN at OR [facility] REPAIR RECURRENT INCISIONAL HERNIA 02/02/2011 REPAIR RECURRENT INCISIONAL HERNIA STRANGULATED performed by MARTI WHITE at OR [facility] REVISION OF ANKLE JOINT 1996 Ankle Joint Arthroplasty,right SUBQ DEBRIDEMENT, FIRST 20 CM2 02/23/2011 DEBRIDEMENT SKIN AND SUBCUTANEOUS TISSUE performed by ADDY DEY at OR [facility] TOTAL ABD HYSTERECTOMY W/WO REMOVAL OF TUBE(S) 2001 UPPER GI ENDOSCOPY/EXAM 11/08/09 UPPER GI ENDOSCOPY SIMPLE performed by YUSRA KAPLAN at OR [facility] VEIN BYPASS,FEMORAL-POPLITEAL 02/05/2011 BYPASS GRAFT WITH VEIN FEMORAL POPLITEAL performed by MARTI BILLINGSLEY at OR [facility] VENOGRAM EXTREMITY UNI-FLUOR 02/05/2011 IMAGING S&I EXTREMITY VEIN performed by MARTI BILLINGSLEY at OR [facility] Family History Problem Relation Age of Onset [...] COVID-19 mRNA, LNP-s, No Preserve, 2-Dose Series ([employer]) 05/27/2021 COVID-19, LNP-s, No Preserve, Rodrick-sucrose, Ages 12+ ([employer]) 02/03/2022 COVID-19, MRNA-LNP, 23-24, PF, 30 MCG/0.3 mL, 12 YRS AND ABOVE, IM ([employer]) 04/27/2023 Covid-19 Ad26, Single Dose ([employer]J&J) 10/25/2020 Covid-19, Mrna, Lnp-s, Pf, Bivalent, 30 Mcg, IM, 12 yrs and above ([employer]) 06/09/2022 H1N1 2009 Influenza, IM 08/02/2009 Pneumococcal [...] weakness Visually impaired Older than age 70 Yci-Zz-tii-Go Test: Time began at 100. Patient stood from sitting position and walked approximately 10 feet, returned and sat down. Total time for eog-gn-nsv-go test was 12 seconds. Mox-Yn-qvl-Go Test completed? Yes Gender Specific Preventative Plan: Health Maintenance Topic Date Due Hepatitis B (1 of 3 - Risk 3-dose series) Never done COLONOSCOPY-EVERY 5 YRS AGES 18-100 01/05/2018 Diabetic Foot Exam 03/29/2020 Depression Screening 06/04/2023 HbA1c 07/29/2023 GFR 07/29/2023 CKD HGB USE SMARTSET 48594 01/27/2024 CKD PHOS USE SMARTSET 64792 01/27/2024 B-12 01/27/2024 Albumin/Creatinine Ratio 01/28/2024 Diabetic Eye Exam 02/20/2024 DXA Scan 12/02/2024 DTaP,Tdap,and Td Vaccines (3 - Td or Tdap) 04/26/2029 VITAMIN D LEVEL ONCE IN A LIFETIME-USE SMARTSET# 16183 Completed Influenza Vaccine (FLU shot) Completed Hepatitis [...] have and how well it?s controlled. The [place] [employer] Association (ADA) advises an A1C test [...] should keep an A1C below 7%. The [place] Association of Clinical Endocrinologists advises an A1C [...] ready for the test. Last Reviewed Date: 09/16/202119999283-3215 [employer]. All rights reserved. This information is not intended as a substitute for professional medical care. Always follow your healthcare professional's instructions. * Pt Handout (on AVS) - Taylor Morales RN - 06/08/2023 1:56 PM EST Images from the original note were not included. 39406 Diabetes and Kidney Disease Diabetes makes your [...] and/or other health concerns. Last Reviewed Date: 08/19/202119994359-0682 [employer]. All rights reserved. This information is not intended as a substitute for professional medical care. Always follow your healthcare professional's instructions. * Pt Handout (on AVS) - Taylor Morales RN - 06/08/2023 1:56 PM EST Images from the original note were not included. 85753 Managing Your Glucose Level for Diabetes and [...] better within 1 hour. Last Reviewed Date: 06/18/202119997592-5050 [employer]. All rights reserved. This information is not intended as a substitute for professional medical care. Always follow your healthcare professional's instructions. * Pt Handout (on AVS) - Taylor Morales RN - 06/08/2023 1:56 PM EST Images from the original note were not included. 64707 Preventing Osteoporosis: Meeting Your Calcium Needs Your [...] Low-fat yogurt, plain 415 mg/8 oz. Sardines, Goodman, canned, with bones 351 mg/3 oz. Oatmeal, instant, fortified 215 mg/1 cup Nonfat milk 302 mg/1 cup [place], sockeye, canned, with bones 239 mg/3 oz. Tofu made with calcium sulfate 204 mg/3 oz. Low-fat milk 297 mg/1 cup Soybeans, fresh, boiled 131 mg/1/2 cup Collards 179 mg/1/2 cup Guyanese cheese 272 mg/1 oz. White beans, cooked 81 mg/1/2 cup [place]er muffin, whole wheat 175 mg/1 muffin Cheddar cheese 205 mg/1 oz. [place] beans, cooked 79 mg/1/2 cup Kale 90 mg/1/2 cup Ice cream strawberry 79 mg/1/2 cup [place], navel 56 mg/1 medium Note: Calcium levels [...] and men): 1,200 mg Last Reviewed Date: 05/19/202119996111-6449 [employer]. All rights reserved. This information is not intended as a substitute for professional medical care. Always follow your healthcare professional's instructions. documented in this encounter Plan of Treatment Upcoming Encounters Date Type Department Care Team (Late st Contact Info) Description 08/04/2023 1:50 PM EST Office Visit Family Medicine [address] [place] [phone] Madhuri Galicia, [address] [place] [address] 01/19/2024 1:30 PM EDT Imaging Radiology [address] [place] [address] 06/14/2024 1:00 PM EST Nurse Only Ancillary [address] [place] [address] Daniella, Nurse Annual [address] [place] [address] Health Maintenance Due Date Last Done Comments [...] Additional history exists CKD HGB USE SMARTSET 81556 01/27/202401/26, 01/15/2022, 06/12/2021, Additional history exists CKD PHOS USE SMARTSET 70670 01/27/202401/16, 11/05/2021, 10/18/2020, Additional history exists Albumin/Creatinine [...] D LEVEL ONCE IN A LIFETIME-USE SMARTSET# 94991 Completed 01/26/2023, 01/03/2020, 04/22/2018, Additional history exists [...] this encounter Medical Devices Implanted Type Area Air [employer] Missile Defense Crewmember Device Identifier Shelf Expiration Date Model / Serial / Lot Alloderm 2x4 Sheet [id number] - [id number] Implanted:Qty : 1 on 11/08/2009 at OR [facility] Tissue - Human N/A: Abdomen LIFE CELL AFIA 02/16/2011 [id number] / / [id number] Mesh 10 X 14 [id number] - [id number] Implanted:Qty : 1 on 02/02/2011 at OR [facility] N/A: Abdomen [employer] AFIA 01/03/2015 [id number] / / [id number] Pelvic Coil 2 Implanted:Qty : 5 on 02/04/2011 at RADIOLOGY [facility] Left: Pelvis [employer] / / [id number] Description:figure 8 documented as of this encounter [...] Documents on File Type Date Recorded Patient Regional Truck Driver Expl anation Advance Directives and Vinh g Will 09/29/2017 LIVING WILL Power of Cable Systems Installer 09/29/2017 POWER OF A TTORNEY Latest Code [...] the patient have Health Care Power of Cable Systems Installer? No Full Code 01/18/2010 8:53 PM 01/30/2010 6:41 PM This o rder reflects the patients wishes and were consensually agreed upon. Question Answer Comments Discussion of Advance Directives occurred with: Patient Does the patient have a Living Will? No Does the patient have Health Care Power of Cable Systems Installer? No Full Code 11/18/2009 11:54 AM 11/19/2009 4:09 PM This o rder reflects the patients wishes and were consensually agreed upon. Question Answer Comments Discussion of Advance Directives occurred with: Patient Does the patient have a Living Will? No Does the patient have Health Care Power of Cable Systems Installer? No Full Code 11/13/2009 8:29 AM 11/14/2009 5:08 PM This order reflects the patients wishes and were consensually agreed upon. Care Teams Communications Systems Engineer Relationship Specialty Start Date End Date Madhuri Galicia DO [address] [place] [address] [place] [address] PCP - General Internal Medicine 02/16/17 documented as of this encounter
--- OUTSIDE RECORDS SUMMARY | 2023-07-12 11:06 | External Medical Summary | Summary of Care ---
Author Name Unknown Organization [facility] Address [address] [facility] [place] [address] Phone [phone] Care Team Providers Care Site Technician Name Role Phone Madhuri Galicia DO Primary Care Provider Reason for Visit * Reason Onset Date Comments Med Request 06/08/2023 Encounter Details Date Type Department Care Team (Late st Contact Info) Description 06/08/2023 Refill Ancillary [address] [place] [address] Madhuri Galicia DO [address] [place] [address] [place] [address] Type 2 diabetes mellitus with hemoglobin A1c goal of less than 8.0% ([facility]) Allergies Active Allergy Reactions Criticality Noted Date [...] A1c goal of less than 8.0% ([facility]) Use to test blood sugar once a [...] A1c goal of less than 8.0% ([facility]) Inject 1.5 mg under the skin once a week. 6 mL 3 06/08/2023 Active Trulicity 1.5 MG/0.5ML Subcutaneous Solution Pen-injector (Dulaglutide)Indic ations:Type 2 diabetes mellitus with hemoglobin A1c goal of less than 8.0% ([facility]) Inject 1.5 mg under the skin once [...] MANAGEMENT 11/18/200905/05 Overview: Stefanie Powell RN Outpatient Utilization ReviewerTeam Cdl Driver number [phone] Fax number [phone] Hypotension 11/08/2009 12/19/2012 Follow-up examination, lyndseyo wing other surgery 11/08/2009 12/19/2012 Diaphragmatic hernia [...] 02/17/2008 03/12/2017 Anticoagulation management encounter 02/17/2008 08/20/2008 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 Never true 06/04/20 22 Within the past 12 months, t he [...] encounter Miscellaneous Notes * Telephone Encounter - Taylor Morales RN - 06/08/2023 3:04 PM EST Patient here for her annual wellness visit and requesting RF, patient states she has been without the trulicity for one month for no good reason. Pending Prescriptions: Disp Refills Trulicity 1.5 MG/0.5ML Subcutaneous Solut*6 mL 3 Sig: Inject 1.5 mg under the skin once a week. will need sent to [facility]-[address] documented in this encounter Plan of Treatment Upcoming Encounters Date Type Department Care Team (Late st Contact Info) Description 08/04/2023 1:50 PM EST Office Visit [facility] Medicine [address] [phone] Madhuri Galicia, [address] [place] [address] 01/19/2024 1:30 PM EDT Imaging Radiology [address] [place] [address] 06/14/2024 1:00 PM EST Nurse Only Ancillary [address] [place] [address] [place], Nurse Annual Wellness [address] [place] [address] [place] [address] Health Maintenance Due Date Last Done Comments [...] Additional history exists CKD HGB USE SMARTSET 87434 01/27/202401/26, 01/15/2022, 06/12/2021, Additional history exists CKD PHOS USE SMARTSET 88832 01/27/202401/16, 11/05/2021, 10/18/2020, Additional history exists Albumin/Creatinine [...] D LEVEL ONCE IN A LIFETIME-USE SMARTSET# 56380 Completed 01/26/2023, 01/03/2020, 04/22/2018, Additional history exists [...] this encounter Medical Devices Implanted Type Area Scissors Sharpener Device Identifier Shelf Expiration Date Model / Serial / Lot Alloderm 2x4 Sheet [id number] - [id number] Implanted:Q[place] : 1 [place] 11[place]08/[place] [facility] [place] - Human N/A: Abdomen LIFE CELL AFIA 02/16/2011 [id number] / / [id number] Mesh 10 X 14 [id number] - [id number] Implanted:Qty : 1 on 02/02/2011 [place] [facility] N/A: Abdomen [employer] 01/03/2015 [id number] / / [id number] Pelvic Coil 2 Implanted:Qty : 5 on 02/04/2011 [place] [facility] Left: Pelvis [employer] / / [id number] Description:figure 8 documented as of this encounter Visit Diagnoses Diagnosis Type 2 diabetes mellitus with hemoglobin A1c goal of less than 8.0% (HCC) documented in this encounter Advance Directives Documents on File Type Date Recorded Patient Mechanism Inspector Expl anation Advance Directives and Vinh jones Will 09/29/2017 LIVING WILL Power of Manager People 09/29/2017 POWER OF A TTORNEY Latest Code [...] the patient have Health Care Power of Manager People? No Full Code 01/18/2010 8:53 PM 01/30/2010 6:41 PM This o rder reflects the patients wishes and were consensually agreed upon. Question Answer Comments Discussion of Advance Directives occurred with: Patient Does the patient have a Living Will? No Does the patient have Health Care Power of Manager People? No Full Code 11/18/2009 11:54 AM 11/19/2009 4:09 PM This o rder reflects the patients wishes and were consensually agreed upon. Question Answer Comments Discussion of Advance Directives occurred with: Patient Does the patient have a Living Will? No Does the patient have Health Care Power of Manager People? No Full Code 11/13/2009 8:29 AM 11/14/2009 5:08 PM This order reflects the patients wishes and were consensually agreed upon. Care Teams Site Technician Relationship Specialty Start Date End Date Madhuri Galicia DO [address] [place] [address] [place] [address] PCP - General Internal Medicine 02/16/17 documented as of this encounter
--- OUTSIDE RECORDS SUMMARY | 2023-07-12 11:06 | External Medical Summary | Summary of Care ---
Author Name Unknown Organization [facility] Address [address] [facility] [place] [address] Phone [phone] Care Team Providers Care Process Environmental Technician Name Role Phone Tere Chen DO Primary Care Provider Reason for Visit * Reason Onset Date Comments Med Request 06/08/2023 Encounter Details Date Type Department Care Team (Late st Contact Info) Description 06/08/2023 Refill Ancillary [address] [place] [address] Tere Chen DO [address] [place] [address] [place] [address] Type 2 diabetes mellitus with hemoglobin A1c goal of less than 8.0% ([facility]) Allergies Active Allergy Reactions Criticality Noted Date Comments Ben Inhibitors 12/05/2012- 2009 Stated that she does not have an allergy to Ben Inhibitors. 06/08/16 States she does not have allergy to Ben inhibitors 03/29/2019 documented as of this encounter (statuses as of 06/09/2023) Medications Medication Sig Dispensed Refills Start Date [...] hemoglobin A1c goal of less than 8.0% ([facility]) Use to test blood sugar once a [...] hemoglobin A1c goal of less than 8.0% ([facility]) Inject 1.5 mg under the skin once a week. 6 mL 3 06/08/2023 Active Trulicity 1.5 MG/0.5ML Subcutaneous Solution Pen-injector (Dulaglutide)Indic ations:Type 2 diabetes mellitus with hemoglobin A1c goal of less than 8.0% ([facility]) Inject 1.5 mg under the skin once a week. 6 mL 3 04/16/2023 3 Discontinue d(Refill) documented as of this encounter (statuses as of 06/09/2023) Active Problems Problem Noted Date Diagnosed Date [...] as of this encounter (statuses as of 06/09/2023) Resolved Problems Problem Noted Date Diagnosed Date [...] MANAGEMENT 11/18/200905/05 Overview: Stefanie Powell RN Outpatient Towboat PilotSenior Applications Developer number [phone] Fax number [phone] Hypotension 11/08/2009 12/19/2012 Follow-up examination, lyndseyo wing [...] 02/17/2008 03/12/2017 Anticoagulation management encounter 02/17/2008 08/20/2008 manager terminal current use of ant icoagulant therapy [...] as of this encounter (statuses as of 06/09/2023) Immunizations Name Administration Dates Next Due COVID-19 mRNA, LNP-s, No Pre serve, 2-Dose Series ([employer]) 05/27/2021 COVID-19, LNP-s, No Preserve , Rodrick-sucrose, Ages 12+ ([employer]) 02/03/2022 COVID-19, MRNA-LNP, 23-24, P F, 30 MCG/0.3 mL, 12 YRS AND ABOVE, IM ([employer]) 04/27/2023 Covid-19 Ad26, Single Dose ([employer]/J&ActionX) 10/25/2020 Covid-19, Mrna, Lnp-s, Pf, B ivalent, 30 Mcg, IM, 12 yrs and above ([employer]) 06/09/2022 H1N1 2009 Influenza, IM 08/02/2009 Pneumococcal [...] Telephone Encounter - Taylor Morales RN - 06/09/2023 9:49 AM ESTSigned Prescriptions: Disp Refills Trulicity 1.5 MG/0.5ML Subcutaneous Soluti*6 mL 3 Sig: Inject 1.5 mg under the skin once a week.Authorizing Provider: TERE CHEN * Telephone Encounter - Taylor Morales RN - 06/09/2023 9:48 AM EST Patient notified Reason for Call: Med Request Contact: Telephone Call Contact Type: Medication Outcome: see note Face to face time spent with Patient (minutes): 0 Total Time including non face to face (minutes): 10 * Telephone Encounter - Taylor Morales RN - 06/08/2023 3:04 PM EST Patient here for her annual wellness visit and requesting RF, patient states she has been without the trulicity for one month for no good reason. Pending Prescriptions: Disp Refills Trulicity 1.5 MG/0.5ML Subcutaneous Solut*6 mL 3 Sig: Inject 1.5 mg under the skin once a week. will need sent to [facility] documented in this encounter Plan of Treatment Upcoming Encounters Date Type Department Care Team (Late st Contact Info) Description 08/04/2023 1:50 PM EST Office Visit Family Medicine [address] [place] [phone] [place] [address] 01/19/2024 1:30 PM EDT Imaging Radiology [address] [place] [address] 06/14/2024 1:00 PM EST Nurse Only Ancillary [address] [place] [address] Daniella, Nurse Annual [address] [place] [address] Health Maintenance Due Date Last Done Comments [...] Additional history exists CKD HGB USE SMARTSET 72650 01/27/202401/26, 01/15/2022, 06/12/2021, Additional history exists CKD PHOS USE SMARTSET 87997 01/27/202401/16, 11/05/2021, 10/18/2020, Additional history exists Albumin/Creatinine [...] D LEVEL ONCE IN A LIFETIME-USE SMARTSET# 59975 Completed 01/26/2023, 01/03/2020, 04/22/2018, Additional history exists [...] this encounter Medical Devices Implanted Type Area Box Inspector Device Identifier Shelf Expiration Date Model / Serial / Lot Alloderm 2x4 Sheet [id number] - [id number] Implanted:Qty : 1 on 11/08/2009 at [place] [facility] Tissue - Human N/A: Abdomen LIFE CELL AFIA 02/16/2011 [id number] / / [id number] Mesh 10 X 14 [id number] - [id number] Implanted:Qty : 1 on 02/02/2011 at [place] [facility] [place] N/A: Abdomen [employer] AFIA 01/03/2015 [id number] / / [id number] Pelvic Coil 2 Implanted:Qty : 5 on 02/04/2011 at [facility] Left: Pelvis [employer] / / [id number] Description:figure 8 documented as of this encounter Visit Diagnoses Diagnosis Type 2 diabetes mellitus with hemoglobin A1c goal of less than 8.0% (HCC) documented in this encounter Advance Directives Documents on File Type Date Recorded Patient Records Management Manager Expl anation Advance Directives and Livin g Will 09/29/2017 LIVING WILL Power of Liquor Tester 09/29/2017 POWER OF A TTORNEY Latest Code [...] the patient have Health Care Power of Liquor Tester? No Full Code 01/18/2010 8:53 PM 01/30/2010 6:41 PM This o rder reflects the patients wishes and were consensually agreed upon. Question Answer Comments Discussion of Advance Directives occurred with: Patient Does the patient have a Living Will? No Does the patient have Health Care Power of Liquor Tester? No Full Code 11/18/2009 11:54 AM 11/19/2009 4:09 PM This o rder reflects the patients wishes and were consensually agreed upon. Question Answer Comments Discussion of Advance Directives occurred with: Patient Does the patient have a Living Will? No Does the patient have Health Care Power of Liquor Tester? No Full Code 11/13/2009 8:29 AM 11/14/2009 5:08 PM This order reflects the patients wishes and were consensually agreed upon. Care Teams Process Environmental Technician Relationship Specialty Start Date End Date Tere Chen DO [address] [place] [address] [place] [address] PCP - General Internal Medicine 02/16/17 documented as of this encounter
--- OUTSIDE RECORDS SUMMARY | 2023-07-12 11:06 | External Medical Summary ---
Author Name Unknown Address Unknown Organization K01:[facility] [place] [facility] [place] [address] [place] [address] Laboratory Report Ordering Provider Test Date Status EDILIA WALSH 06/17/2023 10:50:43 Final Observation Date Value Abnormality Reference (Units ) Status MYCODE SPECIMEN-SST 06/17/2023 10:50:43 Freezing of extracted DNA, whole blood and/or serum. Final Performing Location [facility] [place] [facility] [place] [address] [place] [address]
--- OUTSIDE RECORDS SUMMARY | 2023-07-12 11:06 | External Medical Summary | Summary of Care ---
Author Name Unknown Organization [facility] Address [address] [place] [facility] [place] [address] Phone [phone] Care Team Providers Care Gas Station Manager Name Role Phone Madhuri Galicia DO Primary Care Provider Reason for Visit * Reason Comments Acute Encounter Details Date Type Department Care Team (Late st Contact Info) Description 06/17/2023 10:40 AM EST Office Visit Family Medicine [address] [place] [phone] Cierra Vail PA-C [address] [place] [address] [place] [address] Edema, unspecified type* Allergies Active Allergy Reactions Criticality Noted Date [...] A1c goal of less than 8.0% ([facility] Inject 1.5 mg under [...] MANAGEMENT 11/18/200905/05 Overview: Stefanie Powell RN Outpatient Arabic ProfessorChief Yeoman number [phone] Fax number [phone] Hypotension 11/08/2009 12/19/2012 Follow-up examination, follo wing [...] 02/17/2008 03/12/2017 Anticoagulation management encounter 02/17/2008 08/20/2008 correction current use of ant icoagulant therapy 02/17/2008 [...] mRNA, LNP-s, No Pre serve, 2-Dose Series ([facility]) 05/27/2021 COVID-19, LNP-s, No Preserve , Rodrick-sucrose, Ages 12+ (Pfizer) 02/03/2022 COVID-19, MRNA-LNP, 23-24, P F, 30 MCG/0.3 mL, 12 YRS AND ABOVE, IM ([employer]) 04/27/2023 Covid-19 Ad26, Single Dose (Pixlee/J&J) 10/25/2020 Covid-19, Mrna, Lnp-s, Pf, B ivalent, 30 Mcg, IM, 12 yrs and above ([facility]) 06/09/2022 H1N1 2009 Influenza, IM 08/02/2009 Pneumococcal [...] Sign Reading Time Taken Comments Blood Pressure 122/66 06/17/2023 10:40 AM EST Pulse 62 06/17/2023 10:40 AM EST Temperature 36.1 C (97 F) 06/17/2023 10:40 AM EST Respiratory Rate - - Oxygen Saturation - - Inhaled Oxygen Concentration - - Weight 61.7 kg (136 lb) 06/17/2023 10:40 AM EST Height - - Body Mass Index 23.34 06/08/2023 1:23 PM EST documented in this encounter Progress Notes * Cierra Vail PA-C - 06/17/2023 10:42 AM EST Nursing Notes: Sandy Gilbert LPN 06/17/23 1040 Sign at exiting of workspace Right leg & foot swollen Pt here today with right leg and foot swelling. It started yesterday. No injury. She has never had issues with swelling in the past. Pt denies redness, bruising, discoloration, hot to touch, calf tenderness, chest pain, SOB, cough. She hasn't been eating anything high in sodium. She doesn't drink much water. LLE is normal. Review of patient's allergies indicates: Allergen Reactions Ben Inhibitors - 2009 Stated that she does not have an allergy to Ben Inhibitors. 06/08/16 States she does not have allergy to Ben inhibitors 03/29/2019 Current Outpatient Medications Medication Sig Dispense Refill [...] No current facility-administered medications for this visit. 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 GENERAL: alert, healthy, and no distress HEART: regular rate & rhythm, no murmur, and no gallops LUNGS: chest symmetric with normal AP diameter, no chest deformities noted, no chest wall tenderness, lungs clear to auscultation EXTREMITIES: RLE - edema, no erythema, no ecchymosis. No calf tenderness. Negative homans A:Edema, unspecified type (Primary) - BASIC METABOLIC PANEL; Future; Expected date: 06/17/2023 - CBC WITH WBC DIFFERENTIAL AND ANEMIA REFLEX WORKUP; Future; Expected date: 06/17/2023 - VASC DUPLEX VENOUS LE UNILAT Will check some labs. Will get venous doppler. Any questions/problems, please call. If anything changes, worsens, develops new sx, please call [facility]. Follow Up: Return if symptoms worsen or fail to improve. Cierra Vail PA-C documented in this encounter Nursing Notes * Sandy Gilbert LPN - 06/17/2023 10:40 AM EST Right leg & foot swollen documented in this encounter Plan of Treatment Upcoming Encounters Date Type Department Care Team (Late st Contact Info) Description 06/17/2023 2:15 PM EST Imaging Radiology [address] [place] [address] 08/04/2023 1:50 PM EST Office Visit Family Medicine [address] [place] [phone] [address] [place] [address] 01/19/2024 1:30 PM EDT Imaging Radiology [address] [place] [address] 06/14/2024 1:00 PM EST Nurse Only Ancillary [address] [place] [address] [place], Nurse [address] [place] [address] Pending Results Name Type Priority Associated Diagnoses Date /Time BASIC METABOLIC PANEL Lab Routine Edema, unspecified type 06/17/2023 10:50 AM EST CBC WITH WBC DIFFERENTIAL AND ANEMIA REFLEX WORKUP Lab Routine Edema, unspecified type 06/17/2023 10:50 AM EST Scheduled Orders Name Type Priority Associated Diagnoses Orde r Schedule BASIC METABOLIC PANEL Lab Routine Edema, unspecified type Expected: 06/17/2023 (Approximate), Expires: 06/16/2024 CBC WITH WBC DIFFERENTIAL AND ANEMIA REFLEX WORKUP Lab Routine Edema, unspecified type Expected: 06/17/2023 (Approximate), Expires: 06/17/2024 VASC DUPLEX VENOUS LE UNILAT Medical Imaging Routine Edema, unspecified type Ordered: 06/17/2023 Health Maintenance Due Date Last Done Comments [...] Additional history exists CKD HGB USE SMARTSET 17842 01/27/202401/26, 01/15/2022, 06/12/2021, Additional history exists CKD PHOS USE SMARTSET 06030 01/27/202401/16, 11/05/2021, 10/18/2020, Additional history exists Albumin/Creatinine [...] D LEVEL ONCE IN A LIFETIME-USE SMARTSET# 27799 Completed 01/26/2023, 01/03/2020, 04/22/2018, Additional history exists [...] this encounter Medical Devices Implanted Type Area Center Hole Reamer Device Identifier Shelf Expiration Date Model / Serial / Lot Alloderm 2x4 Sheet [id number] - [id number] Implanted:Qty : 1 on 11/08/2009 at OR [facility] Tissue - Human N/A: Abdomen LIFE CELL AFIA 02/16/2011 [id number] / / [id number] Mesh 10 X 14 [id number] - [id number] Implanted:Qty : 1 on 02/02/2011 at OR [facility] N/A: Abdomen [employer] AFIA 01/03/2015 [id number] / / [id number] Pelvic Coil 2 Implanted:Qty : 5 on 02/04/2011 at [facility] Left: Pelvis [employer] / / [id number] Description:figure 8 documented as of this encounter Visit Diagnoses Diagnosis Edema, unspecified type- Primary documented in this encounter Advance Directives Documents on File Type Date Recorded Patient Secretary Expl anation Advance Directives and Vinh jones Will 09/29/2017 LIVING WILL Power of Ripper Operator 09/29/2017 POWER OF A TTORNEY Latest [...] the patient have Health Care Power of Ripper Operator? No Full Code 01/18/2010 8:53 PM 01/30/2010 6:41 PM This o rder reflects the patients wishes and were consensually agreed upon. Question Answer Comments Discussion of Advance Directives occurred with: Patient Does the patient have a Living Will? No Does the patient have Health Care Power of Ripper Operator? No Full Code 11/18/2009 11:54 AM 11/19/2009 4:09 PM This o rder reflects the patients wishes and were consensually agreed upon. Question Answer Comments Discussion of Advance Directives occurred with: Patient Does the patient have a Living Will? No Does the patient have Health Care Power of Ripper Operator? No Full Code 11/13/2009 8:29 AM 11/14/2009 5:08 PM This order reflects the patients wishes and were consensually agreed upon. Care Teams Gas Station Manager Relationship Specialty Start Date End Date Madhuri Galicia DO [address] [place] [address] [place] [address] PCP - General Internal Medicine 02/16/17 documented as of this encounter
--- OUTSIDE RECORDS SUMMARY | 2023-07-12 11:06 | External Medical Summary | Summary of Care ---
Author Name Unknown Organization [facility] Address [address] [place] [address] Phone [phone] Care Team Providers Care Calender Feeder Name Role Phone Madhuri Galicia DO Primary Care Provider Reason for Visit * Reason Comments Adult Annual Wellness Visit, Subsequent Visit Encounter Details Date Type Department Care Team (Late st Contact Info) Description 06/08/2023 1:00 PM EST Nurse Only Ancillary [address] [place] [phone] [place], Nurse [address] [place] [phone] Adult Annual Wellness Visit, Subsequent Visit Allergies [...] MANAGEMENT 11/18/200905/05 Overview: Stefanie Powell RN Outpatient Harness PlacerAdjuster Leader number [phone] Fax number [phone] Hypotension 11/08/2009 12/19/2012 Follow-up examination, follo wing [...] 02/17/2008 03/12/2017 Anticoagulation management encounter 02/17/2008 08/20/2008 buttermilk drier operator current use of ant icoagulant therapy [...] mRNA, LNP-s, No Pre serve, 2-Dose Series (Dubb) 05/27/2021 COVID-19, LNP-s, No Preserve , Rodrick-sucrose, Ages 12+ (Dubb) 02/03/2022 COVID-19, MRNA-LNP, 23-24, P F, 30 MCG/0.3 mL, 12 YRS AND ABOVE, IM ([employer]) 04/27/2023 Covid-19 Ad26, Single Dose ([employer]) 10/25/2020 Covid-19, Mrna, Lnp-s, Pf, B ivalent, 30 Mcg, IM, 12 yrs and above (Dubb) 06/09/2022 H1N1 2009 Influenza, IM 08/02/2009 Pneumococcal [...] 2001 Endometrial cancer (HCC) 1980 D&C in [place] Gastric ulcer 11/08/2009 Heme + stool HTN, [...] AORTA [place]ARTI [place] [facility] [place] W/ BIOPSY (RECTUM) 02/24/07 repeat 3 yrs adenomatous tissue COLONOSCOPY, DIAGNOSTIC (RECTUM) 01/05/2013 COLONOSCOPY FLEXIBLE PROXIMAL DIAGNOSTIC performed by Jase Maya DO at ENDOSCOPY [facility] DRAIN COMPL POSTOP WOUND INFECTION 02/05/2011 INCISION AND DRAINAGE COMPLEX POST OPERATIVE WOUND INFECT performed by MARTI WHITE at [facility] EGD, FLEXIBLE, DIAGNOSTIC 09/26/09 Suspected gastroparesis, f/u with UGI EGD, FLEXIBLE, DIAGNOSTIC 11/13/09 UPPER GI ENDOSCOPY DIAGNOSTIC performed by YUSRA KAPLAN at [facility] EGD, FLEXIBLE, DIAGNOSTIC 03/14/2012 UPPER GI ENDOSCOPY DIAGNOSTIC performed by Jase Maya DO at ENDOSCOPY [facility] EGD, FLEXIBLE, DIAGNOSTIC 03/17/2012 UPPER GI ENDOSCOPY DIAGNOSTIC performed by Jase Maya DO at ENDOSCOPY [facility] EGD, FLEXIBLE, DIAGNOSTIC 01/05/2013 UPPER GI ENDOSCOPY DIAGNOSTIC performed by Jase Maya DO at ENDOSCOPY [facility] EGD, FLEXIBLE, DIAGNOSTIC 09/27/2014 inflammatory tissue on bx, rpeat 1 yr/ESOPHAGOGASTRODUODENOSCOPY (EGD), FLEXIBLE, TRANSORAL, DIAGNOSTIC performed by Jase Maya DO at ENDOSCOPY [facility] EGD, FLEXIBLE, DIAGNOSTIC 10/08/2015 reflux esophagitis, retained food/ESOPHAGOGASTRODUODENOSCOPY (EGD), FLEXIBLE, TRANSORAL, DIAGNOSTICperformed by Jase Maya DO at ENDOSCOPY [facility] EGD, FLEXIBLE, W/BIOPSY 02/10/08 mild chronic gastric inflammation EGD, W/ENDOSCOPIC US 03/03/2013 UPPER GI ENDOSCOPY ENDOSCOPIC ULTRASOUND performed by Jase Maya DO at [facility] ESOPHAGOGASTRIC FUNDOPLASTY 04/10/08 Laparoscopic Sayra fundoplication, left lower quadrant lower abdominal incarcerated incisional hernia repair with dual guard mesh, appr. 3 x 3cm defect 04/10/08 Dr. Millan ESOPHAGOGASTRIC FUNDOPLASTY 11/08/09 LAPAROSCOPIC ESOPHAGOGASTRIC FUNDOPLASTY SAYRA performed by YUSRA KAPLAN [place] [facility] [place]PLANT MESH W/ ABD HERNIA REPR/DEBRIDE 02/02/2011 IMPLANTATION MESH WITH INCISIONAL/VENTRAL HERNIA performed by MARTI WHITE [place] [facility] INSER NIKOLAS CAT,W/O PUMP;5YR/OLD 01/23/2010 INSERT TUNNELED CENTRAL VENOUS CATHETER* performed by ROSALVA STACY at [place] [facility] [place] ARTERIOGRAM PELVIC 02/04/2011 ANGIOGRAPHY PELVIC COMPLETE GLOBAL performed by ROSALVA STACY at [place] [facility] PLACEMENT IVC FILTER 02/05/08 DVT, PE, gastric ulcer Hgb 5.5 MUSCLE/FASCIA DEBRIDEMENT, FIRST 20 CM2 02/19/2011 DEBRIDEMENT SKIN SUBCUTANEOUS TISSUE AND MUSCLE performed by ADDY DEY [place] [facility] [place] NEG PRESSURE WOUND THERAPY DME >50 SQ CM 02/19/2011 NEGATIVE PRESSURE WOUND THERAPY GREATER THAN 50SQ CM performed by ADDY DEY at [place] [facility] NEG PRESSURE WOUND THERAPY DME >50 SQ CM 02/23/2011 NEGATIVE PRESSURE WOUND THERAPY GREATER THAN 50SQ CM performed by ADDY DEY [place] [facility] OTHER 04/11/08 Laparoscopic removal of retained holli drain 04/11/08 Dr. Alvarez PROSTHETIC MAT/MESH, ABD, NECROTIC, REMOVAL 02/02/2011 REMOVAL MESH ABDOMINAL WALL NECROTIZING SOFT TISSUE INFECTION performed by MARTI WHITE [place] [facility] [place]OVE CATARACT, INSERT LENS PROSTH 08/10/11 L eye REMOVE CATARACT, INSERT LENS PROSTH 08/24/11 R eye REPAIR PARAESOPHAGEAL HERNIA 11/08/09 LAPAROSCOPIC REPAIR PARAESOPHAGEAL HIATUS HERNIA WITH OR WITHOUT FUNDOPLASTY, VAGOTOMY, OR PYLOROPLASTY performed by YUSRA KAPLAN [place] [facility] [place] REPAIR RECURRENT INCISIONAL HERNIA 02/02/2011 REPAIR RECURRENT INCISIONAL HERNIA STRANGULATED performed by MARTI WHITE at [place] [facility] [place] REVISION OF ANKLE JOINT 1996 Ankle Joint Arthroplasty,right SUBQ DEBRIDEMENT, FIRST 20 CM2 02/23/2011 DEBRIDEMENT SKIN AND SUBCUTANEOUS TISSUE performed by ADDY DEY [place] [facility] [place] TOTAL ABD HYSTERECTOMY W/WO REMOVAL OF TUBE(S) 2001 UPPER GI ENDOSCOPY/EXAM 4/23/10 UPPER GI ENDOSCOPY SIMPLE performed by YUSRA KAPLAN [place] [facility] VEIN BYPASS,FEMORAL-POPLITEAL 02/05/2011 BYPASS GRAFT WITH VEIN FEMORAL POPLITEAL performed by MARTI BILLINGSLEY at [place] [facility] VENOGRAM EXTREMITY UNI-FLUOR 02/05/2011 IMAGING S&I EXTREMITY VEIN performed by MARTI BILLINGSLEY [place] [facility] [place] Family History Problem Relation Age of Onset [...] COVID-19 mRNA, LNP-s, No Preserve, 2-Dose Series (Dubb) 05/27/2021 COVID-19, LNP-s, No Preserve, Rodrick-sucrose, Ages 12+ ([employer]) 02/03/2022 COVID-19, MRNA-LNP, 23-24, PF, 30 MCG/0.3 mL, 12 YRS AND ABOVE, IM ([employer]) 04/27/2023 Covid-19 Ad26, Single Dose ([employer]) 10/25/2020 Covid-19, Mrna, Lnp-s, Pf, Bivalent, 30 Mcg, IM, 12 yrs and above (Dubb) 06/09/2022 H1N1 2009 Influenza, IM 08/02/2009 Pneumococcal [...] weakness Visually impaired Older than age 70 Wbb-Bz-fbw-Go Test: Time began at 100. Patient stood from sitting position and walked approximately 10 feet, returned and sat down. Total time for oxj-vr-anh-go test was 12 seconds. Qhl-Qh-vzg-Go Test completed? Yes Gender Specific Preventative Plan: Health Maintenance Topic Date Due Hepatitis B (1 of 3 - Risk 3-dose series) Never done COLONOSCOPY-EVERY 5 YRS AGES 18-100 01/05/2018 Diabetic Foot Exam 03/29/2020 Depression Screening 06/04/2023 HbA1c 07/29/2023 GFR 07/29/2023 CKD HGB USE SMARTSET 76278 01/27/2024 CKD PHOS USE SMARTSET 19651 01/27/2024 B-12 01/27/2024 Albumin/Creatinine Ratio 01/28/2024 Diabetic Eye Exam 02/20/2024 DXA Scan 12/02/2024 DTaP,Tdap,and Td Vaccines (3 - Td or Tdap) 04/26/2029 VITAMIN D LEVEL ONCE IN A LIFETIME-USE SMARTSET# 79000 Completed Influenza Vaccine (FLU shot) Completed Hepatitis [...] Choices Program 10 minutes spent in direct hdzr-gq-ktbd discussion today, Mello Morales RN * Pt [...] have and how well it?s controlled. The [place] Diabetes Association (ADA) advises an A1C test [...] should keep an A1C below 7%. The [place] Association of Clinical Endocrinologists advises an A1C [...] ready for the test. Last Reviewed Date: 09/16/202119991941-7226 [employer]. All rights reserved. This information is not intended as a substitute for professional medical care. Always follow your healthcare professional's instructions. * Pt Handout (on AVS) - Mello Morales RN - 06/08/2023 1:56 PM EST Images from the original note were not included. 47113 Diabetes and Kidney Disease Diabetes makes your [...] and/or other health concerns. Last Reviewed Date: 08/19/202119997727-5576 [employer]. All rights reserved. This information is not intended as a substitute for professional medical care. Always follow your healthcare professional's instructions. * Pt Handout (on AVS) - Mello Morales RN - 06/08/2023 1:56 PM EST Images from the original note were not included. 40362 Managing Your Glucose Level for Diabetes and [...] better within 1 hour. Last Reviewed Date: 06/18/202119991452-3792 [employer]. All rights reserved. This information is not intended as a substitute for professional medical care. Always follow your healthcare professional's instructions. * Pt Handout (on AVS) - Mello Morales RN - 06/08/2023 1:56 PM EST Images from the original note were not included. 45192 Preventing Osteoporosis: Meeting Your Calcium Needs Your [...] Low-fat yogurt, plain 415 mg/8 oz. Sardines, Dent, canned, with bones 351 mg/3 oz. Oatmeal, instant, fortified 215 mg/1 cup Nonfat milk 302 mg/1 cup Ferrum, sockeye, canned, with bones 239 mg/3 oz. Tofu made with calcium sulfate 204 mg/3 oz. Low-fat milk 297 mg/1 cup Soybeans, fresh, boiled 131 mg/1/2 cup Collards 179 mg/1/2 cup Slovak cheese 272 mg/1 oz. White beans, cooked 81 mg/1/2 cup South Korean muffin, whole wheat 175 mg/1 muffin Cheddar cheese 205 mg/1 oz. [place] beans, cooked 79 mg/1/2 cup Kale 90 mg/1/2 cup Ice cream strawberry 79 mg/1/2 cup [place], navel 56 mg/1 medium Note: Calcium levels [...] and men): 1,200 mg Last Reviewed Date: 05/19/202119995616-4070 [employer]. All rights reserved. This information is not intended as a substitute for professional medical care. Always follow your healthcare professional's instructions. documented in this encounter Plan of Treatment Upcoming Encounters Date Type Department Care Team (Late st Contact Info) Description 08/04/2023 1:50 PM EST Office Visit Family Medicine [address] [place] [phone] [place] [address] 01/19/2024 1:30 PM EDT Imaging Radiology [address] [place] [phone] 06/14/2024 1:00 PM EST Nurse Only Ancillary [address] [place] [address] [place], Nurse Annual Wellness [address] [place] [address] [place] [phone] Health Maintenance Due Date Last Done Comments [...] Additional history exists CKD HGB USE SMARTSET 98771 01/27/202401/26, 01/15/2022, 06/12/2021, Additional history exists CKD PHOS USE SMARTSET 49787 01/27/202401/16, 11/05/2021, 10/18/2020, Additional history exists Albumin/Creatinine [...] D LEVEL ONCE IN A LIFETIME-USE SMARTSET# 75148 Completed 01/26/2023, 01/03/2020, 04/22/2018, Additional history exists [...] this encounter Medical Devices Implanted Type Area Boiler Room Operator Device Identifier Shelf Expiration Date Model / Serial / Lot Alloderm 2x4 Sheet [id number] - [id number] Implanted:Qty : 1 on 11/08/2009 [place] [facility] [place] - Human N/A: Abdomen [employer] AFIA 02/16/2011 [id number] / / [id number] Mesh 10 X 14 [id number] - [id number] Implanted:Qty : 1 on 02/02/2011 [place] [facility] [place] N/A: Abdomen [employer] AF[employer] 01/03/2015 [id number] / / [id number] Pelvic Coil 2 Implanted:Qty : 5 on 02/04/2011 at [place] [facility] [place] Left: Pelvis [employer] / / [id number] Description:figure 8 documented as of this encounter [...] Documents on File Type Date Recorded Patient Nut Roaster Expl anation Advance Directives and Livin g Will 09/29/2017 LIVING WILL Power of Commercial Finance Analyst 09/29/2017 POWER OF A TTORNEY Latest Code [...] the patient have Health Care Power of Commercial Finance Analyst? No Full Code 01/18/2010 8:53 PM 01/30/2010 6:41 PM This o rder reflects the patients wishes and were consensually agreed upon. Question Answer Comments Discussion of Advance Directives occurred with: Patient Does the patient have a Living Will? No Does the patient have Health Care Power of Commercial Finance Analyst? No Full Code 11/18/2009 11:54 AM 11/19/2009 4:09 PM This o rder reflects the patients wishes and were consensually agreed upon. Question Answer Comments Discussion of Advance Directives occurred with: Patient Does the patient have a Living Will? No Does the patient have Health Care Power of Commercial Finance Analyst? No Full Code 11/13/2009 8:29 AM 11/14/2009 5:08 PM This order reflects the patients wishes and were consensually agreed upon. Care Teams Calender Feeder Relationship Specialty Start Date End Date Madhuri Galicia DO [address] [place] [address] [place] [address] PCP - General Internal Medicine 02/16/17 documented as of this encounter
--- OUTSIDE RECORDS SUMMARY | 2023-07-12 11:06 | External Medical Summary ---
Author Name Unknown Address Unknown Organization K01:[facility]ATORY [place] [address] [facility] [address] Laboratory Report Ordering Provider Test Date Status CONNIE ARRIOLA 06/17/2023 10:50:43 Final Observation Date Value Abnormality Reference (Units ) Status BUN 06/17/2023 10:50:43 39 Above high normal 6-20 (mg/dL) Final Creatinine 06/17/2023 10:50:43 1.4 Above high normal 0.5-1.0 (mg/dL) Final Glomerular filtration rate/1.73 sq M.predicted [Volume Rate/Area] in Serum, Plasma or Blood by Creatinine-based formula (CKD-EPI) 06/17/2023 10:50:43 39 Below low normal >=60 (mL/min) Final eGFR is calculated based on the CKD-EPI 2020 equation SODIUM 06/17/2023 10:50:43 141 135-146 (m mol/L) Final Potassium 06/17/2023 10:50:43 5.1 3.5-5.1 (m mol/L) Final Cl 06/17/2023 10:50:43 108 Above high normal 98 -107 (mmol/L) Final CO2 06/17/2023 10:50:43 20 Below low normal 22- 32 (mmol/L) Final Anion gap 06/17/2023 10:50:43 13 7-15 (mmol /L) Final Glucose 06/17/2023 10:50:43 151 Above high normal 70 -120 (mg/dL) Final Calcium 06/17/2023 10:50:43 9.5 8.4-10.2 ( mg/dL) Final Performing [place] [facility] [place] [facility] [address] [facility] [address]
--- OUTSIDE RECORDS SUMMARY | 2023-07-12 11:06 | External Medical Summary ---
Author Name Unknown Address Unknown Organization [id number]:[facility]ATORY [facility] [place] [address] [place] [address] Laboratory Report Ordering Provider Test Date Status EDILIA WALSH 06/17/2023 10:50:43 Final Observation Date Value Abnormality Reference (Units ) Status MYCODE SPECIMEN-SST 06/17/2023 10:50:43 Freezing of extracted DNA, whole blood and/or serum. Final Performing Location LABORATORY [facility] [place] - [address] [place] [address]
--- OUTSIDE RECORDS SUMMARY | 2023-07-12 11:06 | External Medical Summary ---
Author Name Unknown Address Unknown Organization K01[place] [place] [address] [place] [id number] Laboratory Report Ordering Provider Test Date Status CONNIE ARRIOLA 06/17/2023 10:50:43 Final Observation Date Value Abnormality Reference (Units ) Status WBC, Total 06/17/2023 10:50:43 9.73 4.00-10.8 0 (K/uL) Final RBC 06/17/2023 10:50:43 4.09 3.85-5.15 (M/uL) Final Hemoglobin 06/17/2023 10:50:43 13.1 12.0-15.3 (g/dL) Final Anemia reflex testing trigge rs on a HGB < 12.0 for Females and HGB < 13.0 for Males in accordance with the WHO Anemia Guidelines
Anemia reflex testing triggers on a HGB < 12.0 for Females and HGB < 13.0 for Males in accordance with the WHO Anemia Guidelines HCT 06/17/2023 10:50:43 43.3 36.0-45.2 (%) Final MCV 06/17/2023 10:50:43 105.9 81.5-97.5 (fL) Final MCH 06/17/2023 10:50:43 32.0 27.0-34.0 (pg) Final MCHC 06/17/2023 10:50:43 30.3 32.0-36.0 (g/dL) Final RDW 06/17/2023 10:50:43 14.7 11.5-15.5 (%) Final Platelets 06/17/2023 10:50:43 164 140-400 (K /uL) Final MPV 06/17/2023 10:50:43 11.7 6.6-11.1 ( fL) Final Nucleated erythrocytes/100 leukocytes [Ratio] in Blood by Automated count 06/17/2023 10:50:43 0 <=0 (/100 WBCs) Fi [facility] Performing Location [place] [facility] [place] [address] [facility] [address]
--- OUTSIDE RECORDS SUMMARY | 2023-07-12 11:06 | External Medical Summary ---
Author Name Unknown Address Unknown Organization K01[place] [place] [address] [facility] [place] [address] Laboratory Report Ordering Provider Test Date Status CONNIE ARRIOLA 06/17/2023 10:50:43 Final Observation Date Value Abnormality Reference (Units ) Status SYNC LEUKOCYTES IN BLOOD BY AUTOMATED COUNT 06/17/2023 10:50:43 9.73 4.00-10.80 (K/uL) Final Segs 06/17/2023 10:50:43 82.8 Above high normal 40.0-75.0 (%) Final Lymphs % 06/17/2023 10:50:43 9.0 Below low normal 18.0-42.0 (%) Final Monos 06/17/2023 10:50:43 5.7 1.0-11.0 (%) Final Eosinophils 06/17/2023 10:50:43 1.4 0.0-6.0 (%) Final Basos 06/17/2023 10:50:43 0.5 0.0-2.0 (%) Final Immature Granulocyte, Percent 06/17/2023 10:50:43 0.6 0.0-2.0 (%) Final Absolute Segs 06/17/2023 10:50:43 8.05 Above high normal 1.80-7.70 (K/uL) Final Lymphs, absolute 06/17/2023 10:50:43 0.88 Below low normal 1.00-4.80 (K/ul) Final Monos, Abs 06/17/2023 10:50:43 0.55 0.00-1.10 (K/uL) Final Eos, Abs 06/17/2023 10:50:43 0.14 0.00-0.70 (K/uL) Final Basos, Abs 06/17/2023 10:50:43 0.05 0.00-0.20 (K/uL) Final Immature Granulocytes, Number 06/17/2023 10:50:43 0.06 0.00-0.20 (K/uL) Final Performing Location [place] [facility] [place] [facility] [address] [facility] [address]
--- OUTSIDE RECORDS SUMMARY | 2023-07-12 11:07 | External Medical Summary | Summary of Care ---
Author Name Unknown Organization [facility] Address [address] [place] [address] Phone [phone] Care Team Providers Care Line Assembly Utility Worker Name Role Phone Tere Chen DO Primary Care Provider + [phone] Reason for Referral * Medication Prior Authorization - Closed Specialty Diagnoses / Procedures Referred By Contac t Referred To Contact Diagnoses Type 2 diabetes mellitus with hemoglobin A1c goal of less than 8.0% ([facility]) Tere Chen [address] [place] [address] Referral ID Status Reason Start Date Expiration Date Visits Re quested Visits Authorized [id number] Closed 999 999 Reason for Visit * Reason Onset Date Comments Medication Refill 04/15/2023 Encounter Details Date Type Department Care Team Description 04/15/2023 Refill Family Medicine [address] [place] [id number] Tere Chen [address] [place] [address] Gout; Type 2 diabetes mellitus with hemoglobin A1c goal of less than 8.0% ([facility]) Allergies Active Allergy Reactions Severity Noted Date Comments Ben Inhibitors 12/05/2012 ARF- 2009 Stated that she does not have an allergy to Ben Inhibitors. 06/08/16 States she does not have allergy to Ben inhibitors 03/29/2019 documented as of this encounter (statuses as of 04/16/2023) Medications Medication Sig Dispensed Refills Start Date [...] goal of less than 8.0% (HCC) Inject under the skin 1.5 mg once a week . 6 mL 3 12/26/2021 3 Discontinue d(Refill) metFORMIN HCl ER 500 MG Oral Tablet Extended Release 24 Hour (Glucophage XR)Indications:Typ e 2 diabetes mellitus with hemoglobin A1c goal of less than 8.0% (HCC) Take by mouth 1 Tablet in the morning AND 1 Tablet before bedtime. 180 Tablet 3 02/13/2022 3 Discontinue d(Refill) Metoprolol Tartrate 25 MG Oral Tablet (Lopressor) Take by mouth 1 Tablet in the morning AND 1 Tablet before bedtime. 180 Tablet 3 03/17/2022 3 Discontinue d(Refill) Allopurinol 100 MG Oral Tablet (Zyloprim)Indicati ons:Gout TAKE 1 TABLET IN THE MORNING 90 Tablet 3 05/10/2022 3 Discontinue d(Refill) Pantoprazole Sodium 20 MG Oral Tablet Delayed Release (Protonix) TAKE 1 TABLET IN THE MORNING 90 Tablet 1 05/08/2022 3 Discontinue d(Refill) documented as of this encounter (statuses as of 04/16/2023) Active Problems Problem Noted Date Age-related osteoporosis without current pathological fracture 01/26/2023 HTN, goal below 140/90 07/15/2022 Pancreatic cyst 06/11/2021 Overview: ?IPMN. Noted on imaging 05/2021. May need follow up imaging. Type 2 diabetes mellitus with stage 3b c hronic kidney disease 11/26/2020 Overview: Per CKD protocol Benign hypertension with stage 3b chroni c kidney disease 11/26/2020 Overview: Per CKD protocol History of pulmonary embolism 01/03/2020 Advance directive on file 09/29/2017 Nonrheumatic aortic valve stenosis 03/17 Overview: Mild 2016, mild-moderate 2018 Multiple gastric polyps 06/08/2016 Type 2 diabetes mellitus with hemoglobin A1c [...] as of this encounter (statuses as of 04/16/2023) Resolved Problems Problem Noted Date Resolved Date Chronic kidney disease, stage 3b 12/31/2020 01/26/2023 Overview: Per CKD protocol Diabetes mellitus with stage 3 chronic kidney di sease 10/28/2020 11/28/2020 Overview: Per CKD protocol Type 2 diabetes mellitus wit h stage 3 chronic kidney disease, without long-term current use of insulin 11/01/201810/17 Overview: Per CKD protocol Benign hypertension with chronic kidney disease, stage III 04/22/2018 11/28/2020 Overview: Per CKD protocol Undiagnosed cardiac murmurs 09/10/201609/16 Breast cancer screening 03/03/2016 06/08/20 16 Menopause 03/03/2016 06/08/2016 Encounter for screening mamm ogram for malignant neoplasm of breast 03/03/2016 06/08/2016 Abnormal mammogram 05/16/2014 06/08/2016 Vitamin D deficiency 04/27/2014 06/08/2016 Preop examination 12/28/2013 06/08/2016 Abnormal mammogram 10/25/2013 06/08/2016 Type 2 diabetes mellitus wit h hemoglobin A1c goal of 7.0%-8.0% 10/25/2013 01/08/2015 Overview: ICD-10 update of inactive term Preop examination 03/21/2013 10/24/2013 Type 2 diabetes mellitus wit h hemoglobin A1c goal of less than 7.0% 03/21/2013 10/25/2013 Overview: ICD-10 update of inactive term Abnormal EKG 08/17/2012 09/29/2017 Preop examination 07/06/2012 12/19/2012 DM type 2, not at goal 07/06/2012 3 Pain in right foot 03/08/2012 12/19/2012 Pain in right wrist 09/10/2011 12/19/2012 Secondary thrombocytopenia 01/25/201006/08 Overview: ICD-10 update of inactive term Septicemia 01/25/2010 06/08/2016 Intestinal infection due to Clostridium difficil e 01/21/2010 04/28/2010 Epistaxis 01/20/2010 04/28/2010 Pneumonia due to organism 01/19/20102009 ARF (acute renal failure) 01/19/20102011 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 ICD-10 update of inactive term Hypoglycemia 11/18/2009 11/19/2009 ACTIVE CASE MANAGEMENT 11/18/2009 0 Overview: Stefanie Powell RN Outpatient [employer] Player number [phone] Fax number [phone] Hypotension 11/08/2009 12/19/2012 Follow-up examination, following other surgery 0 11/08/2009 12/19/2012 Diaphragmatic hernia 11/08/2009 06/08/2016 Gastric ulcer 11/08/2009 06/08/2016 Other joint derangement, not elsewhere classified, shoulder region 08/16/2009 12/19/2012 Overview: Old posterior labral tear Synovitis of shoulder 08/16/2009 12/19/2012 Shoulder impingement 08/16/2009 12/19/2012 Shoulder joint pain 08/16/2009 11/19/2009 HTN, goal below 130/80 08/14/2009 2 Overview: Per HTN Taxonomy. Dyslipidemia, goal LDL below 100 06/27/2009 10/24/2013 Overview: Per Lipid Taxonomy. Type 2 diabetes mellitus wit h hemoglobin A1c goal of less than 7.0% 05/16/2009 07/06/2012 Overview: Per Diabetes Taxonomy. ICD-10 update of inactive term Kidney disease, chronic, stage III (GFR 30-59 ml /min) 05/16/2009 05/02/2018 Overview: Had ARF in 01/2010 - unknown definite cause, ? D/t sepsis. Required HD for a time, currently off tx, stable. Note that kidney dz is NOT related to her DM. DM type 2 causing renal disease 03/29/2009 05/16/2009 Overview: Per Diabetes Taxonomy. Intestinal infection due to Clostridium difficil e 11/20/2008 03/29/2009 ADVANCE DIRECTIVE INFORMATION 03/08/2008 Overview: No, Advance Directive brochure given to patient. 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 therapy 0 02/17/2008 08/20/2008 Overview: ICD-10 update of inactive term Other specified gastritis without mention of hem orrhage 02/10/2008 06/08/2016 Overview: mild chronic Other lymphedema 03/22/2007 12/19/2012 Benign neoplasm of colon 02/24/2007 013 Overview: adenomatous tissue-repeat colonoscopy in 3 years Benign neoplasm of colon 02/24/2007 013 Overview: adenomatous tissue-repeat colonoscopy in 3 years LOC PRIM OSTEOARTH-ANKLE 01/14/2005 014 Arthrodesis status 01/14/2005 06/08/2016 Type 2 diabetes mellitus wit h hemoglobin A1c goal of less than 7.0% 08/10/2002 05/16/2009 Overview: Per Diabetes Taxonomy. ICD-10 update of inactive term PURE HYPERCHOLESTEROLEM 12/03/2000 06/27/20 09 Overview: Per Lipid Taxonomy. HTN, goal below 140/90 12/03/2000 0 Overview: Per HTN Taxonomy. Major depressive disorder 2015 Overview: resolved ICD-10 update of inactive term Phlebitis and thrombophlebit is of other deep vessels of lower extremities 12/19/2012 Peptic ulcer 12/19/2012 Overview: in hiatal hernia, Hgb 5.5! Type 2 diabetes mellitus wit h hemoglobin A1c goal of less than 7.0% 10/24/2013 Overview: ICD-10 update of inactive term documented as of this encounter (statuses as of 04/16/2023) Immunizations Name Administration Dates Next Due COVID-19 mRNA, LNP-s, No Pre serve, 2-Dose Series (Zoomdata) 05/27/2021 COVID-19, LNP-s, No Preserve , Rodrick-sucrose, Ages 12+ (Pfizer) 02/03/2022 Covid-19 Ad26, Single Dose (Medicast/J&J) 10/25/2020 Covid-19, Mrna, Lnp-s, Pf, B ivalent, 30 Mcg, IM, 12 yrs and above (Pfizer) 06/09/2022 H1N1 2009 Influenza, IM 08/02/2009 Pneumococcal Conjugate Vacc, 13 Valent (Prevnar) 03/06/2015,12/21/2014 Pneumococcal Polysaccharide PPV23 (Pneumovax) 06/08/2016 Season Influenza, Quad, PF, Adjuvanted, 65+ Yrs, IM (FLUAD) 03/30/2020 Seasonal Influenza, PF, 6 mo ns & Above, IM , (Flulaval) 03/23/2018 Seasonal Influenza, Quadriva lent Hd (Fluzone Hd) 06/04/2022,05/05/2021 Seasonal Influenza, Quadriva lent, No Preserve, IM [...] drink = 0.6 oz pur e alcohol) Food Insecurity Answer Date Recorded Within the past 12 months, y ou worried that your food would run out before you got money to buy more. Never true 06/04/2022 Within the past 12 months, t he food you bought just didn't last and you didn't have money to get more. Never true 06/04/2022 Sex Assigned at Date Recorded Female 03/29/2019 12:31 PM EDT Job Start Date Occupation Industry Not on file Not on file Not on file documented as of this encounter Miscellaneous Notes * Telephone Encounter - Tere Chen DO - 04/16/2023 8:40 AM EDTSigned Prescriptions: Disp Refills Allopurinol 100 MG Oral Tablet (Zyloprim) 90 Tab*3 Sig: TAKE 1 TABLET IN THE MORNING Authorizing Provider: TERE CHEN metFORMIN HCl ER 500 MG Oral Tablet Extend*180 Ta*3 Sig: Take 1 Tablet by mouth in the morning and 1 Tablet before bedtime. Authorizing Provider: TERE CHEN Trulicity 1.5 MG/0.5ML Subcutaneous Isaura uti*6 mL 3 Sig: Inject 1.5 mg under the skin once a week. Authorizing Provider: TERE CHEN Pantoprazole Sodium 20 MG Oral Tablet Ellie*90 Tab*1 Sig: TAKE 1 TABLET IN THE MORNING Authorizing Provider: TERE CHEN Metoprolol Tartrate 25 MG Oral Tablet (Lop*180 Ta*3 Sig: Take 1 Tablet by mouth in the morning and 1 Tablet before bedtime. Authorizing Provider: KATHERINE CHEN * Telephone Encounter - Ruba Felix RN - 04/15/2023 1:22 PM EDTPending Prescriptions: Disp Refills Allopurinol 100 MG Oral Tablet (Zyloprim) 90 Tab*3 Sig: TAKE 1 TABLET IN THE MORNING metFORMIN HCl ER 500 MG Oral Tablet Extend*180 Ta*3 Sig: Take 1 Tablet by mouth in the morning and 1 Tablet before bedtime. Trulicity 1.5 MG/0.5ML Subcutaneous Soluti*6 mL 3 Sig: Inject 1.5 mg under the skin once a week. Pantoprazole Sodium 20 MG Oral Tablet Ellie*90 Tab*1 Sig: TAKE 1 TABLET IN THE MORNING Metoprolol Tartrate 25 MG Oral Tablet (Lop*180 Ta*3 Sig: Take 1 Tablet by mouth in the morning and 1 Tablet before bedtime. * Telephone Encounter - Araceli Posadas - 04/15/2023 12:49 PM EDT Did you pend patient's preferred pharmacy and medication before forwarding?yes Pharmacy: [facility], [address] [place] Pending Prescriptions: Disp Refills Allopurinol 100 MG Oral Tablet (Zyloprim) 90 Tab*3 Sig: Take 1 Tablet by mouth. In the morning. metFORMIN HCl ER 500 MG Oral Tablet Exten*180 Ta*3 Sig: Take 1 Tablet by mouth in the morning and 1 Tablet before bedtime. Trulicity 1.5 MG/0.5ML Subcutaneous Solut*6 mL 3 Sig: Inject 1.5 mg under the skin once a week. Pantoprazole Sodium 20 MG Oral Tablet Del*90 Tab*1 Sig: Take 1 Tablet by mouth. In the morning. Metoprolol Tartrate 25 MG Oral Tablet (Lo*180 Ta*3 Sig: Take 1 Tablet by mouth in the morning and 1 Tablet before bedtime. Last Visit: 01/26/2023 (in office), Visit date not found (telemedicine) Next Visit: 08/04/2023 If no future appointments scheduled, and last appointment is greater than a year ago, please schedule patient for a follow-up appointment Last date the medication was ordered: 05/10/2022, 02/13/2022, 03/17/2022, 05/08/2022 & 12/26/2021 Is this request for a controlled substance?No Urine Drug Screen:No results found. However, due to the size of the patient record, not all encounters were searched. Please check Results Review for a complete set of results. Patient Phone Numbers Labs: Lab Results Component Value Date/Time CREAT 1.2 (H) 01/26/2023 12:23 PM CREAT 1.21 (A) 01/15/2022 12:00 AM CREAT 1.5 (H) 05/07/2020 10:33 AM POTASSIUM 5.3 (H) 01/26/2023 12:23 PM POTASSIUM 4.6 01/15/2022 12:00 AM POTASSIUM 6.3 (H) 05/07/2020 10:33 AM POTASSIUM 4.6 05/15/1996 09:30 AM TSH 0.70 01/18/2010 09:40 PM TSH 0.39 05/15/1996 09:30 AM LDLCALC 143 (A) 01/15/2022 12:00 AM LDLCALC 50 01/03/2020 01:03 PM LDLDIRECT NOT APPLICABLE 01/03/2020 01:03 PM LDLDIRECT 54 11/03/2011 03:05 PM ALT 14 01/26/2023 12:23 PM ALT 19 05/06/2020 01:29 PM HGBA1C 6.9 (H) 01/26/2023 12:23 PM HGBA1C 6.7 (A) 01/15/2022 12:00 AM HGBA1C 7.9 (H) 05/06/2020 01:29 PM documented in this encounter Plan of Treatment Upcoming Encounters Date Type Specialty Care Team Description 06/03/2023 Telemedicine Orthopedics Terrell Styles MD [address] [place] [id number] 06/08/2023 Nurse Only Ancillary [place], Nurse Annual [address] [place] [address] 08/04/2023 Office Visit Family Medicine Tere Chen, [address] [place] [address] 01/19/2024 Imaging Radiology Health Maintenance Due Date Last Done Comments COLONOSCOPY-EVERY 5 YRS AGES 18-100 01/05/2018 01/05/2013, 01/05/2013, 06/03/2011, Additional history exists Diabetic Foot Exam 03/29/2020 03/29/2019, 0 03/03/2016, 01/08/2015, Additional history exists Influenza Vaccine (FLU shot) (#1) 2023 06/04/2022, 05/05/2021, 03/30/2020, Additional history exists Depression Screening 06/04/2023 06/04/2022 GFR 07/29/2023 01/26/2023, 12/19, 10/20/2021, Additional history exists HbA1c 07/29/2023 01/26/2023, 06/19, 01/15/2022, Additional history exists B-12 01/27/2024 01/26/2023, 10/18, 10/18/2020, Additional history exists CKD HGB USE SMARTSET 71089 01/27/202401/26, 01/15/2022, 06/12/2021, Additional history exists CKD PHOS USE SMARTSET 96365 01/27/202401/16, 11/05/2021, 10/18/2020, Additional history exists Albumin/Creatinine Ratio 01/28/2024 023, 11/06/2021, 01/03/2020, Additional history exists DIABETES-EYE EXAM 02/20/2024 02/19/2023, , 10/16/2020, Additional history exists DXA Scan 12/02/2024 12/02/2022, 01/17, 05/01/2003, Additional history exists DTaP,Tdap,and Td Vaccines (3 - Td or Tdap) 04/26/2029 04/26/2019, 02/09/2008 Hepatitis C Screening Completed 01/20/2010, 010 Pneumococcal Vaccine: 65+ Years Completed 06/08/2016, 03/06/2015, 12/21/2014, Additional history exists Zoster Vaccines Completed 05/29/2019, 03/19, 07/05/2008 COVID-19 Vaccine Completed 06/09/2022, , 05/27/2021, Additional history exists VITAMIN D LEVEL ONCE IN A LIFETIME-USE SMARTSET# [id number] Completed 01/26/2023, 01/03/2020, 04/22/2018, Additional history exists GARDASIL-HPV IMMUNIZATION SERIES Aged Out No longer eligible based on patient's age to complete this topic Hepatitis B Aged Out No longer eligi ble based on patient's age to complete this topic MENINGOCOCCAL (MENACTRA/MENVEO) Aged Out No longer eligible based on patient's age to complete this topic documented as of this encounter Medical Devices Implanted Type Area Cook Camp Device Identifier Shelf Expiration Date Model / Serial / Lot Alloderm 2x4 Sheet [id number] - [id number] Implanted:Qty : 1 on 11/08/2009 at [facility] [place] Tissue - Human N/A: Abdomen [employer] 02/16/2011 [id number] / / [id number] Mesh 10 X 14 [id number] - [id number] Implanted:Qty : 1 on 02/02/2011 at [facility] [place] N/A: Abdomen [employer] 01/03/2015 [id number] / / [id number] Pelvic Coil 2 Implanted:Qty : 5 on 02/04/2011 at RADIOLOGY [facility] [place] Left: Pelvis [address] / / [id number] Description:figure 8 documented as of this encounter Visit Diagnoses Diagnosis Gout Gout, unspecified Type 2 diabetes mellitus with hemoglobin A1c goal of less than 8.0% (HCC) documented in this encounter Advance Directives Documents on File Type Date Recorded Patient Drop Clipper Expl anation Advance Directives and Livin g Will 09/29/2017 LIVING WILL Power of Roller Picker 09/29/2017 POWER OF A TTORNEY Latest Code [...] the patient have Health Care Power of Roller Picker? No Full Code 01/18/2010 8:53 PM 01/30/2010 6:41 PM This o rder reflects the patients wishes and were consensually agreed upon. Question Answer Comments Discussion of Advance Directives occurred with: Patient Does the patient have a Living Will? No Does the patient have Health Care Power of Roller Picker? No Full Code 11/18/2009 11:54 AM 11/19/2009 4:09 PM This o rder reflects the patients wishes and were consensually agreed upon. Question Answer Comments Discussion of Advance Directives occurred with: Patient Does the patient have a Living Will? No Does the patient have Health Care Power of Roller Picker? No Full Code 11/13/2009 8:29 AM 11/14/2009 5:08 PM This order reflects the patients wishes and were consensually agreed upon. Care Teams Line Assembly Utility Worker Relationship Specialty Start Date End Date Tere Chen, [address] [place] [address] PCP - General Internal Medicine 02/16/17 documented as of this encounter
--- OUTSIDE RECORDS SUMMARY | 2023-07-12 11:07 | External Medical Summary ---
Author Name Unknown Address Unknown Organization K01:[facility] [address] [place] [address] Laboratory Report Ordering Provider Test Date Status APRIL CARRANZA 01/27/2023 11:38:05 Final Normal: <30 mg/g creatinine< br/>High: 30-300 mg/g creatinine
Very High: >300 mg/g creatinine
Nephrotic: >2200 mg/g creatinine Observation Date Value Abnormality Reference (Units ) Status Albumin, Urine 01/27/2023 11:38:05 5.16 (mg/dL) Final Creatinine, Urine 01/27/2023 11:38:05 56 (mg/dL) Final Albumin/Creatinine [Mass Ratio] in Urine 01/27/2023 11:38:05 92 Above high normal <30 (mg/g Creat) Final Performing Location [facility] - [address] [place] [address]
--- OUTSIDE RECORDS SUMMARY | 2023-07-12 11:07 | External Medical Summary | Summary of Care ---
Author Name Unknown Organization [facility] Address [address] [place] [address] Phone [phone] Care Team Providers Care Traffic Controller Cable Name Role Phone GaliciaAixaMadhuri Carli SO Primary Care Provider + [phone] Reason for Referral * Evaluate & Treat - Unlimited Visits (Within 10 days (routine)) - Authorized Specialty Diagnoses / Procedures Referred By Contac t Referred To Contact Physical Therapy / Physical Medicine And Rehab Diagnoses Primary osteoarthritis of left knee Muscular deconditioning Terrell Styles MD [address] [facility] [place] [address] Referral ID Status Reason Start Date Expiration Date Visits Requested Visits Authorized [id number] Authorized Specialty Services Required 02/04/[phone] Question Answer Referral Priority Within 10 days (routine) Comments xr showed: FINDINGS No visible fracture. Alignment is normal. Mild tibiofemoral joint space narrowing. Minimal osteophyte formation. Chondrocalcinosis involving the menisci noted. Atherosclerotic calcifications. No joint effusion. IMPRESSION IMPRESSION 1. No acute findings. 2. Mild osteoarthritis. Reason for Visit * Reason Comments NEW PATIENT left knee pain * Evaluate & Treat - Unlimited Visits (Within 10 days (routine)) - Authorized Specialty Diagnoses / Procedures Referred By Contac t Referred To Contact Orthopaedic Surgery / Orthopedics Diagnoses Acute pain of left knee Instability of left knee joint Madalyn Burgess, PA-C [address] [place] [address] [place] [address] Referral ID Status Reason Start Date Expiration Date Visits Requested Visits Authorized [id number] Authorized Specialty Services Required 01/06/[phone] Encounter Details Date Type Department Care Team Description 02/04/2023 Office Visit Orthopaedics [address] [place] [address] Terrell Styles MD [address] [place] [address] Primary osteoarthritis of left knee*; Muscular deconditioning Allergies Active Allergy Reactions Severity Noted Date Comments Ben Inhibitors 12/05/2012- 2009 Stated that she does not have an allergy to Ben Inhibitors. 06/08/16 States she does not have allergy to Ben inhibitors 03/29/2019 documented as of this encounter (statuses as of 02/04/2023) Medications Medication Sig Dispensed Refills Start Date [...] hemoglobin A1c goal of less than 8.0% ([facility]) Use to test blood sugar once a day DXe11.9 100 Strip 3 10/07/2021 Active Trulicity 1.5 MG/0.5ML Subcutaneous Solution Pen-injector (Dulaglutide)Indicat ions:Type 2 diabetes mellitus with hemoglobin A1c goal of less than 8.0% ([facility]) Inject under the skin 1.5 mg once a week . 6 mL 3 12/26/2021 Active metFORMIN HCl ER 500 MG Oral Tablet Extended Release 24 Hour (Glucophage XR)Indications:Type 2 diabetes mellitus with hemoglobin A1c goal of less than 8.0% ([facility]) Take by mouth 1 Tablet in the morning AND 1 Tablet before bedtime. 180 Tablet 3 02/13/2022 Active Metoprolol Tartrate 25 MG Oral Tablet (Lopressor) Take by mouth 1 Tablet in the morning AND 1 Tablet before bedtime. 180 Tablet 3 03/17/2022 Active Allopurinol 100 MG Oral Tablet (Zyloprim)Indication s:Gout TAKE 1 TABLET IN THE MORNING 90 Tablet 3 05/10/2022 Active Pantoprazole Sodium 20 MG Oral Tablet Delayed Release (Protonix) TAKE 1 TABLET IN THE MORNING 90 Tablet 1 05/08/2022 Active High Potency Iron 65 MG Oral [...] taking tablet. 5 Tablet 11 01/26/2023 Active documented as of this encounter (statuses as of 02/04/2023) Active Problems Problem Noted Date Age-related osteoporosis [...] Nonrheumatic aortic valve stenosis 03/17 Overview: Mild 2017, mild-moderate 2019 Multiple gastric [...] as of this encounter (statuses as of 02/04/2023) Resolved Problems Problem Noted Date Resolved Date [...] 11/18/2009 0 Overview: Stefanie Powell RN Outpatient Nurse SitterIntrusion Analyst number [phone] Fax number [phone] Hypotension 11/08/2009 12/19/2012 Follow-up examination, following other [...] 02/17/2008 03/12/2017 Anticoagulation management encounter 02/17/2008 08/20/2008 custodial current use of anticoagulant therapy 0 02/17/2008 08/20/2008 Overview: ICD-10 update of inactive term Other specified gastritis without mention of hem orrhage 02/10/2008 06/08/2016 Overview: mild chronic Other lymphedema 03/22/2007 12/19/2012 Benign neoplasm of colon 02/24/200712/19/ 013 Overview: adenomatous tissue-repeat colonoscopy in 3 [...] as of this encounter (statuses as of 02/04/2023) Immunizations Name Administration Dates Next Due COVID-19 mRNA, LNP-s, No Pre serve, 2-Dose Series (Jodange) 05/27/2021 COVID-19, LNP-s, No Preserve , Rodrick-sucrose, Ages 12+ (Jodange) 02/03/2022 Covid-19 Ad26, Single Dose (ExceleraRx/J&mInfo) 10/25/2020 Covid-19, Mrna, Lnp-s, Pf, B ivalent, 30 Mcg, IM, 12 yrs and above (Jodange) 06/09/2022 H1N1 2009 Influenza, IM 08/02/2009 Pneumococcal Conjugate Vacc, 13 Valent (Prevnar) 03/06/2015,12/21/2014 Pneumococcal Polysaccharide PPV23 (Pneumovax) 06/08/2016 Seasonal Influenza, Quadriva lent Hd (Fluzone Hd) 06/04/2022,05/05/2021 Seasonal Influenza, Quadriva lent, No Preserve, 6 Mons & Above, IM 03/23/2018 Seasonal Influenza, Quadriva lent, No Preserve, Adjuvanted, 65+ Yrs, IM 03/30/2020 Seasonal Influenza, Quadriva lent, No Preserve, IM [...] as of this encounter Progress Notes * Terrell Styles MD - 02/04/2023 1:33 PM EDT Shikha Erick Ricks [phone] Shikha M Rambo is a 77 year old female who presents for consultation to [facility] for left knee injury/pain. Consult requested by Madalyn Burgess PA-C. Shikha Ricks is here with his/her Quality: reviewed and agree with Nursing Notes for HPI elements History: History - New patient left knee pain 07/28 x 1 mths Patient denies any PT or injections or injury or bracing or surgery Patient has been wearing brace x 3 weeks is helping x-ray last A1C 6.9 01/26/2023 ROS: ROS per HPI otherwise non-contributory Past Medical History: Diagnosis Date ARF (acute renal failure) (HCC) Dr Matthews Arthrodesis status 01/14/2005 Benign neoplasm of colon 02/24/2007 adenomatous tissue-repeat colonoscopy in 3 years Congenital hiatus hernia Depressive disorder, not elsewhere classified resolved DM type 2, goal A1c below 7 2001 Endometrial cancer (HCC) 1979 D&C in [place] Gastric ulcer 11/08/2009 Heme + stool HTN, goal below 140/80 Hyperlipidemia LDL goal < 100 Other specified gastritis without mention of hemorrhage 02/10/2008 mild chronic Peptic ulcer in hiatal hernia, Hgb 5.5! 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 ICD-10 update of inactive term Septicemia (HCC) 01/25/2010 Family History Problem Relation Age of Onset [...] Yes Self-Exams Not Asked Social History Narrative 52yo as of 05/2022 Social Determinants of Health Financial Resource Strain: Not on file Food Insecurity: No Food Insecurity Worried About Running Out of Food in the Last Year: Never true Ran Out of Food in the Last Year: Never true Transportation Needs: Not on file Physical Activity: Not on file Stress: Not on file Social Connections: Not on file Intimate Partner Violence: Not on file Housing Stability: Not on file Physical Exam Constitutional: Generally well-nourished and in no acute distress Psychiatric: Mood and Affect normal Eyes: EOMI Respiratory: Normal respiratory effort with regular rate and rhythm Knee Exam, Bilateral Inspection: Alignment: Normal Bilateral Effusion: Negative Bilateral Palpation: No significant tenderness on exam today ROM: Flexion/Neutral/Extension: L - 120/0/10, R - 120/0/0 Strength: SLR: Extension: L - 5/5, R - 5/5 Flexion: L - 5/5, R - 5/5 Radiology (I have personally reviewed the following films): 01/06/2023: xray: Left knee, four views FINDINGS No visible fracture. Alignment is normal. Mild tibiofemoral joint space narrowing. Minimal osteophyte formation. Chondrocalcinosis involving the menisci noted. Atherosclerotic calcifications. No joint effusion. IMPRESSION IMPRESSION 1. No acute findings. 2. Mild osteoarthritis. Assessment and Plan: 1) left knee pain Suspect secondary to DJD patient also has diagnosis of gout Symptoms are not that significant at this time in addition her the fact her knee hyperextends bothers her more than pain. I discussed this just may be asymmetric laxity verses possible remote ligament tears. However even if she had a tear of the PCL ligament surgery would not be recommended and therefore I did not recommend an MRI. Offered steroid injection versus physical therapy and given her pain is minimal highly recommended therapy. She was willing to go I also put in for muscular deconditioning. Patient reports both legs feel somewhat weak. She denies any radicular symptoms though Note: Patient is a diabetic: Most recent A1C 6.9 01/26/2023 Follow-up 8-10 weeks depending how she is doing with her leg weakness may need to evaluate lumbar spine Terrell Styles MD Primary Care Sports Medicine Orthopaedics [address] [address] documented in this encounter Nursing Notes * Antionette Patel LPN - 02/04/2023 1:26 PM EDT New patient left knee pain 07/28 x 1 mths Patient denies any PT or injections or injury or bracing or surgery Patient has been wearing brace x 3 weeks is helping x-ray last A1C 6.9 01/26/2023 documented in this encounter Plan of Treatment Upcoming Encounters Date Type Specialty Care Team Description 04/15/2023 Office Visit Orthopedics Jensen, Terrell Gaona MD [address] [place] [address] 06/08/2023 Nurse Only Ancillary Movalley, Nurse [address] [place] [address] 08/04/2023 Office Visit Family Medicine Madhuri Galicia, [address] [place] [address] 01/19/2024 Imaging Radiology Scheduled Referrals Name Type Priority Associated Diagnoses Orde r Schedule PHYSICAL THERAPY REFERRAL OP Referral Within 10 days (routine) Primary osteoarthritis of left knee Muscular deconditioning Ordered: 02/04/2023 Health Maintenance Due Date Last Done Comments COLONOSCOPY-EVERY 5 YRS AGES 18-100 01/05/2018 01/05/2013, 01/05/2013, 06/03/2011, Additional history exists DIABETES-FOOT EXAM 03/29/2020 03/29/2019, 0 03/03/2016, 01/08/2015, Additional history exists DIABETES-EYE EXAM 11/23/2022 11/23/2021, , 08/22/2019, Additional history exists Influenza Vaccine (FLU shot) (#1) 2023 06/04/2022, 05/05/2021, 03/30/2020, Additional history exists Depression Screening, Annual for Pts 12 and Over 06/04/2023 06/04/2022 GFR 07/29/2023 01/26/2023, 12/19, 10/20/2021, Additional history exists HbA1c 07/29/2023 01/26/2023, 06/19, 01/15/2022, Additional history exists B-12 01/27/2024 01/26/2023, 10/18, 10/18/2020, Additional history exists CKD HGB USE SMARTSET 79524 01/27/202401/26, 01/15/2022, 06/12/2021, Additional history exists CKD PHOS USE SMARTSET 98899 01/27/202401/16, 11/05/2021, 10/18/2020, Additional history exists Albumin/Creatinine Ratio 01/28/2024 023, 11/06/2021, 01/03/2020, Additional history exists DXA Scan 12/02/2024 12/02/2022, 01/17, 05/01/2003, Additional history exists DTaP,Tdap,and Td Vaccines (3 - Td or Tdap) 04/26/2029 04/26/2019, 02/09/2008 Pneumococcal Vaccine: 65+ Years Completed 06/08/2016, 03/06/2015, 12/21/2014, Additional history exists Zoster Vaccines Completed 05/29/2019, 03/19, 07/05/2008 COVID-19 Vaccine Completed 06/09/2022, , 05/27/2021, Additional history exists VITAMIN D LEVEL ONCE IN A LIFETIME-USE SMARTSET# 25850 Completed 01/26/2023, 01/03/2020, 04/22/2018, Additional history exists [...] this encounter Medical Devices Implanted Type Area Blower Installer Device Identifier Shelf Expiration Date Model / Serial / Lot Allodereirck 2x4 Sheet [id number] - [id number] Implanted:Qty : 1 on 11/08[place]2009 [place] [facility] [place] - Human N/A: Abdomen LIFE CELL AFIA 02/16/2011 [id number] / / [id number] Mesh 10 X 14 [id number] - [id number] Implanted:Qty : 1 on 02/02/2011 [place] [facility] [place]/A: Abdomen [employer] AFIA 01/03/2015 [id number] / / [id number] Pelvic Coil 2 Implanted:Qty : 5 on 02/04/2011 at [place] [facility] [place] Left: Pelvis [employer] / / [id number] Description:figure 8 documented as of this encounter Visit Diagnoses Diagnosis Primary osteoarthritis of left knee- Primary Primary localized osteoarthrosis, lower leg Muscular deconditioning Muscular wasting and disuse atrophy, not elsewhere classified documented in this encounter Advance Directives Documents on File Type Date Recorded Patient Aquatic Habitat Biologist Expl anation Advance Directives and Livin g Will 09/29/2017 LIVING WILL Power of Regional Environmental Manager 09/29/2017 POWER OF A TTORNEY Latest Code [...] the patient have Health Care Power of Regional Environmental Manager? No Full Code 01/18/2010 8:53 PM 01/30/2010 6:41 PM This o rder reflects the patients wishes and were consensually agreed upon. Question Answer Comments Discussion of Advance Directives occurred with: Patient Does the patient have a Living Will? No Does the patient have Health Care Power of Regional Environmental Manager? No Full Code 11/18/2009 11:54 AM 11/19/2009 4:09 PM This o rder reflects the patients wishes and were consensually agreed upon. Question Answer Comments Discussion of Advance Directives occurred with: Patient Does the patient have a Living Will? No Does the patient have Health Care Power of Regional Environmental Manager? No Full Code 11/13/2009 8:29 AM 11/14/2009 5:08 PM This order reflects the patients wishes and were consensually agreed upon. Care Teams Traffic Controller Cable Relationship Specialty Start Date End Date Madhuri Galicia, [address] [place] [phone] PCP - General Internal Medicine 02/16/17 documented as of this encounter
--- OUTSIDE RECORDS SUMMARY | 2023-07-12 11:07 | External Medical Summary | Summary of Care ---
Author Name Unknown Organization [facility] Address [address] [place] [address] Phone [phone] Care Team Providers Care Official Greeter Name Role Phone GaliciaMadhuri DO Primary Care Provider Reason for Visit * Reason Onset Date Comments Physical Therapy 03/08/2023 Encounter Details Date Type Department Care Team Description 03/08/2023 Telephone Orthopaedics [facility] [address] [place] [address] Terrell Styles MD [address] [place] [address] Physical Therapy Allergies Active Allergy Reactions Severity Noted Date Comments Ben Inhibitors 12/05/2012- 2009 Stated that she does not have an allergy to Ben Inhibitors. 06/08/16 States she does not have allergy to Ben inhibitors 03/29/2019 documented as of this encounter (statuses as of 03/08/2023) Medications Medication Sig Dispensed Refills Start Date [...] as of this encounter (statuses as of 03/08/2023) Active Problems Problem Noted Date Age-related osteoporosis [...] as of this encounter (statuses as of 03/08/2023) Resolved Problems Problem Noted Date Resolved Date [...] 11/18/2009 0 Overview: Stefanie Powell RN Outpatient Electronic Bench TechnicianElectrical Prospecting Supervisor number [phone] Fax number [phone] Hypotension 11/08/2009 12/19/2012 Follow-up examination, following other [...] 02/17/2008 03/12/2017 Anticoagulation management encounter 02/17/2008 08/20/2008 rand cementer current use of anticoagulant therapy 0 02/17/2008 [...] as of this encounter (statuses as of 03/08/2023) Immunizations Name Administration Dates Next Due COVID-19 mRNA, LNP-s, No Pre serve, 2-Dose Series ([employer]) 05/27/2021 COVID-19, LNP-s, No Preserve , Rodrick-sucrose, Ages 12+ (Pfizer) 02/03/2022 Covid-19 Ad26, Single Dose (Epitiro/J&J) 10/25/2020 Covid-19, Mrna, Lnp-s, Pf, B ivalent, [...] encounter Miscellaneous Notes * Telephone Encounter - RESHMA Meyer - 03/08/2023 12:02 PM EDT Rec'd POC from [facility]; placed in Dr. Styles' folder for signature. documented in this encounter Plan of Treatment Upcoming Encounters Date Type Specialty Care Team Description 04/15/2023 Office Visit Orthopedics Terrell Styles MD [address] [place] [address] 06/08/2023 Nurse Only Ancillary Movalley, Nurse Annual [address] [place] [address] 08/04/2023 Office Visit Family Medicine Madhuri Galicia, [address] [place] [address] 01/19/2024 Imaging Radiology Health Maintenance Due Date [...] Additional history exists CKD HGB USE SMARTSET 08819 01/27/202401/26, 01/15/2022, 06/12/2021, Additional history exists CKD PHOS USE SMARTSET 57649 01/27/202401/16, 11/05/2021, 10/18/2020, Additional history exists Albumin/Creatinine [...] D LEVEL ONCE IN A LIFETIME-USE SMARTSET# 51518 Completed 01/26/2023, 01/03/2020, 04/22/2018, Additional history exists [...] this encounter Medical Devices Implanted Type Area Hair Spring Cutter Device Identifier Shelf Expiration Date Model / Serial / Lot Alloderm 2x4 Sheet [id number] - [id number] [place] [facility] [place] N/A: Abdomen LIFE CELL AFIA 02/16/2011 [id number] / / [id number] Mesh 10 X 14 [id number] - [id number] [place]planted:[place] : 1 [place]02[place] [facility] [place]: Abdomen [employer] AFIA 01/03/2015 [id number] / / [id number] Pelvic Coil 2 Implanted:Qty : 5 [place]04[place] [facility] [place]: Pelvis [employer] / / [id number] Description:figure 8 documented as of this encounter Advance Directives Documents on File Type Date Recorded Patient Raimann Machine Operator Expl anation Advance Directives and Livin g Will 09/29/2017 LIVING WILL Power of Regional Sales Associate 09/29/2017 POWER OF A TTORNEY Latest Code [...] patient have Health Care Power of Regional Sales Associate? No Full Code 01/18/2010 8:53 PM 01/30/2010 6:41 PM This o rder reflects the patients wishes and were consensually agreed upon. Question Answer Comments Discussion of Advance Directives occurred with: Patient Does the patient have a Living Will? No Does the patient have Health Care Power of Regional Sales Associate? No Full Code 11/18/2009 11:54 AM 11/19/2009 4:09 PM This o rder reflects the patients wishes and were consensually agreed upon. Question Answer Comments Discussion of Advance Directives occurred with: Patient Does the patient have a Living Will? No Does the patient have Health Care Power of Regional Sales Associate? No Full Code 11/13/2009 8:29 AM 11/14/2009 5:08 PM This order reflects the patients wishes and were consensually agreed upon. Care Teams Official Greeter Relationship Specialty Start Date End Date Madhuri Galicia, [address] [place] [address] PCP - General Internal Medicine 02/16/17 documented as of this encounter
--- OUTSIDE RECORDS SUMMARY | 2023-07-12 11:07 | External Medical Summary | Summary of Care ---
Author Name Unknown Organization [facility] Address [address] [place] [facility] [place] [address] Phone [phone] Care Team Providers Care Calender Tender Name Role Phone Madhuri Galicia DO Primary Care Provider Reason for Visit * Reason Comments Outpatient Testing Encounter Details Date Type Department Care Team Description 01/27/2023 Laboratory Laboratory [address] [place] [address] , Specimen Drop Off [address] [place] [address] Arrived Allergies Active Allergy Reactions Severity Noted Date Comments Ben Inhibitors 12/05/2012- 2009 Stated that she does not have an allergy to Ben Inhibitors. 06/08/16 States she does not have allergy to Ben inhibitors 03/29/2019 documented as of this encounter (statuses as of 01/27/2023) Medications Medication Sig Dispensed Refills Start Date [...] as of this encounter (statuses as of 01/27/2023) Active Problems Problem Noted Date Age-related osteoporosis [...] as of this encounter (statuses as of 01/27/2023) Resolved Problems Problem Noted Date Resolved Date [...] 11/18/2009 0 Overview: Stefanie Powell RN Outpatient Legal Process SpecialistPresentation Manager number [phone] Fax number [phone] Hypotension 11/08/2009 12/19/2012 Follow-up examination, following other [...] 02/17/2008 03/12/2017 Anticoagulation management encounter 02/17/2008 08/20/2008 residential current use of anticoagulant therapy 0 02/17/2008 [...] as of this encounter (statuses as of 01/27/2023) Immunizations Name Administration Dates Next Due COVID-19 mRNA, LNP-s, No Pre serve, 2-Dose Series (Gritness) 05/27/2021 COVID-19, LNP-s, No Preserve , Rodrick-sucrose, Ages 12+ (Pfizer) 02/03/2022 Covid-19 Ad26, Single Dose (Med.ly/J&Twijector) 10/25/2020 Covid-19, Mrna, Lnp-s, Pf, B ivalent, [...] Encounters Date Type Specialty Care Team Description 02/04/2023 Office Visit Orthopedics Terrell Styles MD [address] [place] [address] 06/08/2023 Nurse Only Ancillary Movalley, Nurse Annual [address] [place] [address] 08/04/2023 Office Visit Family Medicine Madhuri Galicia, [address] [place] [address] 01/19/2024 Imaging Radiology Health Maintenance Due Date Last Done Comments COLONOSCOPY-EVERY 5 YRS AGES 18-100 01/05/2018 01/05/2013, 01/05/2013, 06/03/2011, Additional history exists DIABETES-FOOT EXAM 03/29/2020 03/29/2019, 0 03/03/2016, 01/08/2015, Additional history exists Albumin/Creatinine Ratio 11/06/2022 022, 01/03/2020, 04/25/2019, Additional history exists DIABETES-EYE EXAM 11/23/2022 11/23/2021, , 08/22/2019, Additional history exists Influenza Vaccine (FLU shot) (#1) 2023 06/04/2022, 05/05/2021, 03/30/2020, Additional history exists Depression Screening, Annual for Pts 12 and Over 06/04/2023 06/04/2022 GFR 07/29/2023 01/26/2023, 12/19, 10/20/2021, Additional history exists HbA1c 07/29/2023 01/26/2023, 1202/2022, 01/15/2022, Additional history exists B-12 01/27/2024 01/26/2023, 10/18, 10/18/2020, Additional history exists CKD HGB USE SMARTSET 16104 01/27/202401/26, 01/15/2022, 06/12/2021, Additional history exists CKD PHOS USE SMARTSET 05159 01/27/202401/16, 11/05/2021, 10/18/2020, Additional history exists DXA Scan 12/02/2024 12/02/2022, 01/17, 05/01/2003, Additional history exists DTaP,Tdap,and Td Vaccines (3 - Td or Tdap) 04/26/2029 04/26/2019, 02/09/2008 Pneumococcal Vaccine: 65+ Years Completed 06/08/2016, 03/06/2015, 12/21/2014, Additional history exists Zoster Vaccines Completed 05/29/2019, 03/19, 07/05/2008 COVID-19 Vaccine Completed 06/09/2022, , 05/27/2021, Additional history exists VITAMIN D LEVEL ONCE IN A LIFETIME-USE SMARTSET# 41633 Completed 01/26/2023, 01/03/2020, 04/22/2018, Additional history exists [...] this encounter Medical Devices Implanted Type Area Metal Template Maker Device Identifier Shelf Expiration Date Model / Serial / Lot Alloderm 2x4 Sheet [id number] - [id number] [place]planted:Q[place] : [place] [facility] [place] Human N/A: Abdomen LIFE CELL AFIA 02/16/2011 [id number] / / [id number] Mesh 10 X 14 [id number] - [id number] Implanted:Qty : 1 [place] 02[place]02/[place] [facility] [place]/A: Abdomen [employer] AFIA 01/03/2015 [id number] / / [id number] Pelvic Coil 2 Implanted:Qty : 5 on 02/04/2011 [place] [facility] [place] Left: Pelvis [employer] / / [id number] Description:figure 8 documented as of this encounter Advance Directives Documents on File Type Date Recorded Patient Mission Planner Expl treyion Advance Directives and Vinh g Will 09/29/2017 LIVING WILL Power of Wrapper Off 09/29/2017 POWER OF A TTORNEY Latest Code [...] the patient have Health Care Power of Wrapper Off? No Full Code 01/18/2010 8:53 PM 01/30/2010 6:41 PM This o rder reflects the patients wishes and were consensually agreed upon. Question Answer Comments Discussion of Advance Directives occurred with: Patient Does the patient have a Living Will? No Does the patient have Health Care Power of Wrapper Off? No Full Code 11/18/2009 11:54 AM 11/19/2009 4:09 PM This o rder reflects the patients wishes and were consensually agreed upon. Question Answer Comments Discussion of Advance Directives occurred with: Patient Does the patient have a Living Will? No Does the patient have Health Care Power of Wrapper Off? No Full Code 11/13/2009 8:29 AM 11/14/2009 5:08 PM This order reflects the patients wishes and were consensually agreed upon. Care Teams Calender Tender Relationship Specialty Start Date End Date Madhuri Galicia, [address] [place] [address] PCP - General Internal Medicine 02/16/17 documented as of this encounter
--- OUTSIDE RECORDS SUMMARY | 2023-07-12 11:07 | External Medical Summary ---
Author Name Unknown Address Unknown Organization K01:[facility] [place] [address] [facility] [place] [address] Laboratory Report Ordering Provider Test Date Status NATALIA ISLAS 04/20/2023 12:02:34 Final Observation Date Value Abnormality Reference (Units ) Status Color of Urine by Auto 04/20/2023 12:02:34 Yellow Colorless, Light Yellow, Yellow, Dark Yellow Final Clarity, Urine 04/20/2023 12:02:34 Slightly Cloudy Abnormal Clear Final Glucose [Mass/volume] in Urine by Automated test strip 04/20/2023 12:02:34 Negative Negative (mg/dL) Final Bilirubin.total [Presence] in Urine by Automated test strip 04/20/2023 12:02:34 Negative Negative Final Ketones [Mass/volume] in Urine by Automated test strip 04/20/2023 12:02:34 Negative Negative (mg/dL) Final Specific gravity, Urine 04/20/2023 12:02:34 1.014 1.003-1.030 Final Hemoglobin [Presence] in Urine by Automated test strip 04/20/2023 12:02:34 Small Abnormal Negative Final pH, Urine 04/20/2023 12:02:34 6.0 5.0-7.5 (Units) Final Protein [Mass/volume] in Urine by Automated test strip 04/20/2023 12:02:34 Trace Abnormal Negative (mg/dL) Final Urobilinogen [Mass/volume] in Urine by Automated test strip 04/20/2023 12:02:34 Normal Normal (mg/dL) Final Nitrite [Presence] in Urine by Automated test strip 04/20/2023 12:02:34 Negative Negative Final Leukocyte esterase [Presence] in Urine by Automated test strip 04/20/2023 12:02:34 Large Abnormal Negative Final RBC, Urine 04/20/2023 12:02:34 10-19 Abnormal 0-2 (/HPF) Final WBC, Urine 04/20/2023 12:02:34 50+ Abnormal 0-2 (/HPF) Final Bacteria [#/area] in Urine sediment by Microscopy high power field 04/20/2023 12:02:34 151-200 Abnormal 0-25 (/HPF) Final Leukocyte clumps [#/area] in Urine sediment by Microscopy high power field 04/20/2023 12:02:34 Present Abnormal None (/HPF) Final Performing Location [facility] [place] [address] [facility] [address]
--- OUTSIDE RECORDS SUMMARY | 2023-07-12 11:07 | External Medical Summary | Summary of Care ---
Author Name Unknown Organization [facility] Address [address] [place] [address] Phone [phone] Care Team Providers Care Taxation Inspector Name Role Phone Madhuri Galicia DO Primary Care Provider Reason for Visit * Reason Comments Follow Up Left knee pain Encounter Details Date Type Department Care Team Description 04/15/2023 Office Visit Orthopaedics [address] [address] Terrell Styles MD [address] [facility] [place] [address] Primary osteoarthritis of left knee*; Muscular deconditioning Allergies Active Allergy Reactions Severity Noted Date Comments Ben Inhibitors 12/05/2012 ARF- 2009 Stated that she does not have an allergy to Ben Inhibitors. 06/08/16 States she does not have allergy to Ben inhibitors 03/29/2019 documented as of this encounter (statuses as of 04/15/2023) Medications Medication Sig Dispensed Refills Start Date [...] as of this encounter (statuses as of 04/15/2023) Active Problems Problem Noted Date Age-related osteoporosis [...] as of this encounter (statuses as of 04/15/2023) Resolved Problems Problem Noted Date Resolved Date [...] 12/19/2012 DM type 2, not at goal 07/06/201201/03/ 3 Pain in right foot 03/08/2012 12/19/2012 [...] 11/18/2009 0 Overview: Stefanie Powell RN Outpatient Combat Information Center OfficerFarm Crops Teacher number [phone] Fax number [phone] Hypotension 11/08/2009 12/19/2012 Follow-up examination, following other [...] 02/17/2008 03/12/2017 Anticoagulation management encounter 02/17/2008 08/20/2008 senior care current use of anticoagulant therapy 0 02/17/2008 [...] Per Lipid Taxonomy. HTN, goal below 140/90 12/03/200008/14/ 0 Overview: Per HTN Taxonomy. Major depressive [...] as of this encounter (statuses as of 04/15/2023) Immunizations Name Administration Dates Next Due COVID-19 mRNA, LNP-s, No Pre serve, 2-Dose Series (Cloudsnap) 05/27/2021 COVID-19, LNP-s, No Preserve , Rodrick-sucrose, Ages 12+ (Pfizer) 02/03/2022 Covid-19 Ad26, Single Dose (Urvew/J&AM Technology) 10/25/2020 Covid-19, Mrna, Lnp-s, Pf, B ivalent, [...] on file documented as of this encounter Patient Instructions * Patient Instructions* Terrell Styles MD - 04/15/2023 12:46 PM EDT Terrell Styles MD Primary Care Sports Medicine [facility] Orthopaedics [address] [address] documented in this encounter Progress Notes * Terrell Styles MD - 04/15/2023 1:00 PM EDT Shikha Fabian [place] [id number] Shikha Ricks is a 77 year old female who presents for follow-up [facility] Orthopaedics and Sports Medicine for left knee injury/pain. I saw her originally for this on 02/04/2023 Shikha Ricks is here with his/her Quality: reviewed and agree with Nursing Notes for HPI elements History: History on 02/04/2023 - New patient left knee pain 07/28 x 1 mths Patient denies any PT or injections or injury or bracing or surgery Patient has been wearing brace x 3 weeks is helping x-ray last A1C 6.9 01/26/2023 Since that visit: She has had 2 physical therapy visits a week for 5 weeks for a total of 10 sessions. She is noticedsome improvement. In addition she also ordered a custom brace for her knee which she is waiting on. 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 She is noticedsome improvement. In addition she also ordered a custom brace for her knee which she is waiting on.Her current plan is to continue therapy in start using her brace. Telephone visit scheduled for 6-8weeks. She will also call me sooner for any changes Follow-up 8-10 weeks depending how she is doing with her leg weakness may need to evaluate lumbar spine Terrell Styles MD Primary Care Sports Medicine Orthopaedics [address] [address] documented in this encounter Nursing Notes * Antionette Patel LPN - 04/15/2023 12:38 PM EDT F/u left knee pain x 2 mths Going to PT x 4 sessions is seeing some improvement, in reduction of pain ordered braces at diabetic foot clinic/orthotics at [facility] fitting is scheduled for the 04/29/2023 Patient notes feels therapy and brace will help a lot x-ray last A1C 6.9 01/26/2023 documented in this encounter Plan of Treatment Upcoming Encounters Date Type Specialty Care Team Description 06/03/2023 Telemedicine Orthopedics Terrell Styles MD [address] [place] [address] 06/08/2023 Nurse Only Ancillary Movalley, Nurse Annual [address] [place] [address] 08/04/2023 Office Visit Family Medicine Madhuri Galicia, [address] [place] [address] 01/19/2024 Imaging Radiology Health Maintenance Due Date [...] Additional history exists CKD HGB USE SMARTSET 58315 01/27/202401/26, 01/15/2022, 06/12/2021, Additional history exists CKD PHOS USE SMARTSET 82282 01/27/202401/16, 11/05/2021, 10/18/2020, Additional history exists Albumin/Creatinine [...] D LEVEL ONCE IN A LIFETIME-USE SMARTSET# 70977 Completed 01/26/2023, 01/03/2020, 04/22/2018, Additional history exists [...] this encounter Medical Devices Implanted Type Area Wire Stripping Machine Operator Device Identifier Shelf Expiration Date Model / Serial / Lot Alloderm 2x4 Sheet [id number] - [id number] Implanted:Qty : 1 on 11/08/2009 [place] [facility] [place] Tissue - Human N/A: Abdomen LIFE CELL AFIA 02/16/2011 [id number] / / [id number] Mesh 10 X 14 [id number] - [id number] Implanted:Qty : 1 on 02/02/2011 [place] [facility] [place] N/A: Abdomen A[employer]IUM [employer] AFIA 01/03/2015 [id number] / / [id number] Pelvic Coil 2 Implanted:Qty : 5 on 02/04/2011 at [place] [facility] [place] Left: Pelvis [employer] / / [id number] Description:figure 8 documented as of this encounter Visit Diagnoses Diagnosis Primary osteoarthritis of left knee- Primary Primary localized osteoarthrosis, lower leg Muscular deconditioning Muscular wasting and disuse atrophy, not elsewhere classified documented in this encounter Advance Directives Documents on File Type Date Recorded Patient Inspector Chief Expl anation Advance Directives and Livin g Will 09/29/2017 LIVING WILL Power of Programs Manager 09/29/2017 POWER OF A TTORNEY Latest [...] the patient have Health Care Power of Programs Manager? No Full Code 01/18/2010 8:53 PM 01/30/2010 6:41 PM This o rder reflects the patients wishes and were consensually agreed upon. Question Answer Comments Discussion of Advance Directives occurred with: Patient Does the patient have a Living Will? No Does the patient have Health Care Power of Programs Manager? No Full Code 11/18/2009 11:54 AM 11/19/2009 4:09 PM This o rder reflects the patients wishes and were consensually agreed upon. Question Answer Comments Discussion of Advance Directives occurred with: Patient Does the patient have a Living Will? No Does the patient have Health Care Power of Programs Manager? No Full Code 11/13/2009 8:29 AM 11/14/2009 5:08 PM This order reflects the patients wishes and were consensually agreed upon. Care Teams Taxation Inspector Relationship Specialty Start Date End Date Madhuri Galicia, [address] [place] [address] PCP - General Internal Medicine 02/16/17 documented as of this encounter
--- OUTSIDE RECORDS SUMMARY | 2023-07-12 11:07 | External Medical Summary | Summary of Care ---
Author Name Unknown Organization [facility] Address [address] [place] [address] Phone [phone] Care Team Providers Care Fret Saw Operator Name Role Phone GaliciaAixaMadhuri Boyce DO Primary Care Provider [phone] Reason for Visit * Reason Comments Pain Encounter Details Date Type Department Care Team (Latest Contact Info) Description 06/03/2023 3:30 PM EST Telemedicine Orthopaedics [address] [phone] Terrell Styles MD [address] [facility] [place] [address] Primary osteoarthritis of left knee*; Muscular deconditioning Allergies Active Allergy Reactions Criticality Noted Date Comments Ben Inhibitors 12/05/2012- 2009 Stated that she does not have an allergy to Ben Inhibitors. 06/08/16 States she does not have allergy to Ben inhibitors 03/29/2019 documented as of this encounter (statuses as of 06/03/2023) Medications Medication Sig Dispensed Refills Start Date [...] Tablet before bedtime. 180 Tablet 04/16/2023 Active Trulicity 1.5 MG/0.5ML Subcutaneous Solution Pen-injector (Dulaglutide)Indicat ions:Type 2 diabetes mellitus with hemoglobin A1c goal of less than 8.0% ([facility]) Inject 1.5 mg under the skin once a week. 6 mL 04/16/2023 Active Pantoprazole Sodium 20 MG Oral Tablet Delayed Release (Protonix) TAKE 1 TABLET IN THE MORNING 90 Tablet 1 04/16/2023 Active Metoprolol Tartrate 25 MG Oral Tablet (Lopressor) Take 1 Tablet by mouth in the morning and 1 Tablet before bedtime. 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 use of ant icoagulant therapy 02/17/2008 [...] as of this encounter (statuses as of 06/03/2023) Immunizations Name Administration Dates Next Due COVID-19 mRNA, LNP-s, No Pre serve, 2-Dose Series ([employer]) 05/27/2021 COVID-19, LNP-s, No Preserve , Rodrick-sucrose, Ages 12+ (Pfizer) 02/03/2022 COVID-19, MRNA-LNP, 23-24, P F, 30 MCG/0.3 mL, 12 YRS AND ABOVE, IM ([facility]) 04/27/2023 Covid-19 Ad26, Single Dose ([employer] Enhancement Products/J&J) 10/25/2020 Covid-19, Mrna, Lnp-s, Pf, B ivalent, 30 Mcg, IM, 12 yrs and above ([employer]) 06/09/2022 H1N1 2009 Influenza, IM 08/02/2009 Pneumococcal [...] Progress Notes * Terrell Styles MD - 06/03/2023 3:30 PM EST Shikha Fabian Rambo [phone] Shikha Ricks is a 77 year old female who presents for follow-up [facility] Orthopaedics and Sports Medicine for left knee injury/pain. I saw her originally for this on 02/04/2023 Most recent visit for this was on 04/15/2023 Telephone visit done today rather than in office visit. Shikha Fabian Jbmalu is here with his/her Quality: reviewed and agree with Nursing Notes for HPI elements History: History on 02/04/2023 - New patient left knee pain 07/28 x 1 mths Patient denies any PT or injections or injury or bracing or surgery Patient has been wearing brace x 3 weeks is helping x-ray last A1C 6.9 01/26/2023 Additional history on 04/15/2023 She has had 2 physical therapy visits a week for 5 weeks for a total of 10 sessions. She is noticedsome improvement. In addition she also ordered a custom brace for her knee which she is waiting on. Since that visit: She is doing relatively well but has not been able to go back to physical therapy as she is a foot wound they are treating. She did however receive her custom brace which she is been using. ROS: ROS per HPI otherwise non-contributory Past [...] on file Food Insecurity: No Food Insecurity (06/04/2022) Hunger Vital Sign Worried About Running Out of Food in the Last Year: Never true Ran Out of Food in the Last Year: Never true Transportation Needs: Not on file Physical Activity: Not on file Stress: Not on file Social Connections: Not on file Intimate Partner Violence: Not on file Housing Stability: Not on file Radiology (I have personally reviewed the following [...] total of 10 sessions. She is noticedsome improvement with that and when I last saw her her plan was to return to physical therapy. However as noted above she was not able to do that due to a foot wound which they are treating. Her current plan is to use her custom brace which arrived and then return to therapy when she is able. She will follow-up with me p.r.n. Follow-up 8-10 weeks depending how she is doing with her leg weakness may need to evaluate lumbar spine After connecting to the patient via telephone, the patient was identified by name and date of . Patient was then informed that this was a telephone call only visit. The patient agreed to participate. Visit Disposition: Routine follow-up Total call duration was 3 minutes. Terrell Styles MD Primary Care Sports Medicine Orthopaedics [address] [phone] documented in this encounter Plan of Treatment Upcoming Encounters Date Type Department Care Team (Late st Contact Info) Description 06/08/2023 1:00 PM EST Nurse Only Ancillary [address] [place] [address] Movalley, Nurse [address] [place] [address] 08/04/2023 1:50 PM EST Office Visit Family Medicine [address] [place] [phone] Madhuri Galicia[address] [place] [address] 01/19/2024 1:30 PM EDT Imaging Radiology [address] [place] [address] Health Maintenance Due Date Last Done Comments [...] Additional history exists CKD HGB USE SMARTSET 15749 01/27/202401/26, 01/15/2022, 06/12/2021, Additional history exists CKD PHOS USE SMARTSET 14327 01/27/202401/16, 11/05/2021, 10/18/2020, Additional history exists Albumin/Creatinine [...] D LEVEL ONCE IN A LIFETIME-USE SMARTSET# 13510 Completed 01/26/2023, 01/03/2020, 04/22/2018, Additional history exists [...] this encounter Medical Devices Implanted Type Area End Stapler Device Identifier Shelf Expiration Date Model / Serial / Lot Alloderm 2x4 Sheet [id number] - [id number] Implanted:Qty : 1 on 11/08/2009 [place] [facility] [place] Tissue - Human N/A: Abdomen LIFE CELL AFIA 02/16/2011 [id number] / / [id number] Mesh 10 X 14 [id number] - [id number] Implanted:Qty : 1 on 02/02/2011 at [place] [facility] [place] N/A: Abdomen A[employer] AFIA 01/03/2015 [id number] / / [id number] Pelvic Coil 2 Implanted:Qty : 5 on 02/04/2011 at RADIOLOGY [facility] Left: Pelvis [employer] / / [id number] Description:figure 8 documented as of this encounter Visit Diagnoses Diagnosis Primary osteoarthritis of left knee- Primary Primary localized osteoarthrosis, lower leg Muscular deconditioning Muscular wasting and disuse atrophy, not elsewhere classified documented in this encounter Advance Directives Documents on File Type Date Recorded Patient Tactical Debriefer Officer Expl anation Advance Directives and Livin g Will 09/29/2017 LIVING WILL Power of Labeling Associate 09/29/2017 POWER OF A TTORNEY Latest [...] the patient have Health Care Power of Labeling Associate? No Full Code 01/18/2010 8:53 PM 01/30/2010 6:41 PM This o rder reflects the patients wishes and were consensually agreed upon. Question Answer Comments Discussion of Advance Directives occurred with: Patient Does the patient have a Living Will? No Does the patient have Health Care Power of Labeling Associate? No Full Code 11/18/2009 11:54 AM 11/19/2009 4:09 PM This o rder reflects the patients wishes and were consensually agreed upon. Question Answer Comments Discussion of Advance Directives occurred with: Patient Does the patient have a Living Will? No Does the patient have Health Care Power of Labeling Associate? No Full Code 11/13/2009 8:29 AM 11/14/2009 5:08 PM This order reflects the patients wishes and were consensually agreed upon. Care Teams Fret Saw Operator Relationship Specialty Start Date End Date Madhuri Galicia DO [address] [place] [address] [place] [address] PCP - General Internal Medicine 02/16/17 documented as of this encounter
--- OUTSIDE RECORDS SUMMARY | 2023-07-12 11:07 | External Medical Summary ---
Author Name Unknown Address Unknown Organization [id number]:[facility] - [address] [facility] [place] [address] Laboratory Report Ordering Provider Test Date Status JANELNATALIA 04/20/2023 12:02:34 Final <10,000 colonies/ml normal f joey, one colony type Observation Date Value Abnormality Reference (Units ) Status Bacteria identified in Specimen by Culture 04/20/2023 12:02:34 [id number]^ESCHE RICHIA COLI Abnormal Final >100,000 colonies/mL Escheri almas coli Performing Location [facility] - [address] [place] [address] Ordering Provider Test Date Status RAFIA ISLASPRABHAKAR 04/20/2023 12:02:34 Final Observation Date Value Abnormality Reference (Units ) Status Ampicillin 04/20/2023 12:02:34 8 Susceptible Final Cefazolin 04/20/2023 12:02:34 <=4 Susceptible Final Cefepime susceptibility 04/20/2023 12:02:34 <=1 Susceptible Final Ceftriaxone suceptibility 04/20/2023 12:02:34 <=1 Susceptible Final Ciprofloxacin 04/20/2023 12:02:34 <=0.25 Susceptible Final Due to serious side effects, the FDA has advised against using Ciprofloxacin to treat uncomplicated UTIs and respiratory tract infections unless there are no alternative treatment options. Gentamicin susceptibility 04/20/2023 12:02:34 <=1 Susc eptible Final Nitrofurantoin susceptibility 04/20/2023 12:02:34 <=16 Susceptible Final Piperacillin + Tazobactamsusceptibility 04/20/2023 12:02:34 <=4 Susceptible Final TMP-SMZ susceptibility 04/20/2023 12:02:34 <=20 Suscept ible Final Test: Culture, Urine, Quanti tative
Specimen Source: Urine, Clean Catch
Specimen Type: Urine
Specimen Date: 04/20/2023 12:02 PM
Result Date: 04/22/2023 10:31 AM
Result Status: Final result
Abnormal: Yes
Resulting Lab: [facility]
[address]
[facility] [address]

CULTURE

>100,000 colonies/mL Escherichia coli (Abnormal)

<10,000 colonies/ml normal silver, one colony type

SUSCEPTIBILITY

Escherichia coli
METHOD MICROBROTH DILUTIONS

AMPICILLIN 8 Susceptible
CEFAZOLIN <=4 Susceptible
CEFEPIME <=1 Susceptible
CEFTRIAXONE <=1 Susceptible
CIPROFLOXACIN <=0.25 Susceptible [1]
GENTAMICIN <=1 Susceptible
NITROFURANTOIN <=16 Susceptible
PIPERACILLIN TAZOBACTAM <=4 Susceptible
TRIMETH/SULFAMETHOXAZOLE <=20 Susceptible

[1] Due to serious side effects, the FDA has advised against using
Ciprofloxacin to treat uncomplicated UTIs and respiratory tract infections
unless there are no alternative treatment options.

null Performing Location [facility] - [address] [facility] [place] [address]
--- OUTSIDE RECORDS SUMMARY | 2023-07-12 11:07 | External Medical Summary | Summary of Care ---
Author Name Unknown Organization [facility] Address [address] [place] [facility] [facility] [place] [address] Phone [phone] Care Team Providers Care Mop Machine Operator Name Role Phone Madhuri Galicia DO Primary Care Provider [phone] Reason for Visit * Reason Comments Outpatient Testing Encounter Details Date Type Department Care Team Description 04/20/2023 Laboratory Laboratory [address] [place] [address] , Specimen Drop Off [address] [place] [address] Suspected urinary tract infection Allergies Active Allergy Reactions Severity Noted Date Comments Ben Inhibitors 12/05/2012 ARF- 2009 Stated that she does not have an allergy to Ben Inhibitors. 06/08/16 States she does not have allergy to Ben inhibitors 03/29/2019 documented as of this encounter (statuses as of 04/20/2023) Medications Medication Sig Dispensed Refills Start Date [...] before bedtime. 180 Tablet 3 04/16/2023 Active documented as of this encounter (statuses as of 04/20/2023) Active Problems Problem Noted Date Age-related osteoporosis [...] as of this encounter (statuses as of 04/20/2023) Resolved Problems Problem Noted Date Resolved Date [...] 11/18/2009 0 Overview: Stefanie Powell RN Outpatient Quiller TenderDatabase Administrator number [phone] Fax number [phone] Hypotension 11/08/2009 12/19/2012 Follow-up examination, following other [...] 02/17/2008 03/12/2017 Anticoagulation management encounter 02/17/2008 08/20/2008 chief airport guide current use of anticoagulant therapy 0 02/17/2008 [...] as of this encounter (statuses as of 04/20/2023) Immunizations Name Administration Dates Next Due COVID-19 mRNA, LNP-s, No Pre serve, 2-Dose Series ([employer]) 05/27/2021 COVID-19, LNP-s, No Preserve , Rodrick-sucrose, Ages 12+ (Pfizer) 02/03/2022 Covid-19 Ad26, Single Dose (Superprotonic/J&J) 10/25/2020 Covid-19, Mrna, Lnp-s, Pf, B ivalent, [...] Styles MD [address] [place] [address] 06/08/2023 Nurse Only Ancillary Movalley, Nurse Annual Wellness [address] [place] [address] [place] [address] 08/04/2023 Office Visit Family Medicine Madhuri Galicia, [address] [place] [address] 01/19/2024 Imaging Radiology Pending Results Name Type Priority Associated Diagnoses Date /Time URINALYSIS WITH MICROSCOPIC EXAM Lab Routine Suspected urinary tract infection 04/20/2023 12:02 PM EDT CULTURE, URINE, QUANTITATIVE Lab Routine Suspected urinary tract infection 04/20/2023 12:02 PM EDT Health Maintenance Due Date Last Done Comments COLONOSCOPY-EVERY 5 YRS AGES 18-100 01/05/2018 01/05/2013, 01/05/2013, 06/03/2011, Additional history exists Diabetic Foot Exam 03/29/2020 03/29/2019, 0 03/03/2016, 01/08/2015, Additional history exists COVID-19 Vaccine ( season) 2023 06/09/2022, 02/03/2022, 05/27/2021, Additional history exists Influenza Vaccine (FLU shot) (#1) 2023 06/04/2022, 05/05/2021, 03/30/2020, Additional history exists Depression Screening 06/04/2023 06/04/2022 GFR 07/29/2023 01/26/2023, 12/19, 10/20/2021, Additional history exists HbA1c 07/29/2023 01/26/2023, 06/19, 01/15/2022, Additional history exists B-12 01/27/2024 01/26/2023, 10/18, 10/18/2020, Additional history exists CKD HGB USE SMARTSET 60161 01/27/202401/26, 01/15/2022, 06/12/2021, Additional history exists CKD PHOS USE SMARTSET 84512 01/27/202401/16, 11/05/2021, 10/18/2020, Additional history exists Albumin/Creatinine [...] D LEVEL ONCE IN A LIFETIME-USE SMARTSET# 71813 Completed 01/26/2023, 01/03/2020, 04/22/2018, Additional history exists [...] this encounter Medical Devices Implanted Type Area Manufacturing Specialist Device Identifier Shelf Expiration Date Model / Serial / Lot Alloderm 2x4 Sheet [id number] - [id number] Implanted:Qty : 1 on 11/08/2009 [place] [facility] [place] Tissue - Human N/A: Abdomen LIFE CELL AFIA 02/16/2011 [id number] / / [id number] Mesh 10 X 14 [id number] - [id number] Implanted:Qty : 1 on 02/02/2011 at [place] [facility] [place] N/A: Abdomen [employer] AFIA 01/03/2015 [id number] / / [id number] Pelvic Coil 2 Implanted:Qty : 5 on 02/04/2011 at [place] [facility] [place] Left: Pelvis [employer]. / / [id number] Description:figure 8 documented as of this encounter Visit Diagnoses Diagnosis Suspected urinary tract infection documented in this encounter Advance Directives Documents on File Type Date Recorded Patient Bilingual Speech Therapist Expl anation Advance Directives and Livin g Will 09/29/2017 LIVING WILL Power of Zig Zag Spring Machine Operator 09/29/2017 POWER OF A TTORNEY [...] the patient have Health Care Power of Zig Zag Spring Machine Operator? No Full Code 01/18/2010 8:53 PM 01/30/2010 6:41 PM This o rder reflects the patients wishes and were consensually agreed upon. Question Answer Comments Discussion of Advance Directives occurred with: Patient Does the patient have a Living Will? No Does the patient have Health Care Power of Zig Zag Spring Machine Operator? No Full Code 11/18/2009 11:54 AM 11/19/2009 4:09 PM This o rder reflects the patients wishes and were consensually agreed upon. Question Answer Comments Discussion of Advance Directives occurred with: Patient Does the patient have a Living Will? No Does the patient have Health Care Power of Zig Zag Spring Machine Operator? No Full Code 11/13/2009 8:29 AM 11/14/2009 5:08 PM This order reflects the patients wishes and were consensually agreed upon. Care Teams Mop Machine Operator Relationship Specialty Start Date End Date Madhuri Galicia, [address] [place] [id number] PCP - General Internal Medicine 02/16/17 documented as of this encounter
--- OUTSIDE RECORDS SUMMARY | 2023-07-12 11:07 | External Medical Summary | Summary of Care ---
Author Name Unknown Organization [facility] Address [address] [place] [address] Phone [phone] Care Team Providers Care Traffic Superintendent Name Role Phone GaliciaAixaMadhuriramona Boyce DO Primary Care Provider [phone] Encounter Details Date Type Department Care Team Description 04/27/2023 Immunization Ancillary [place] [address] [place] [address] [place], Covid Vaccine [address] [place] [address] Arrived Allergies Active Allergy Reactions Severity Noted Date Comments Ben Inhibitors 12/05/2012- 2009 Stated that she does not have an allergy to Ben Inhibitors. 06/08/16 States she does not have allergy to Ben inhibitors 03/29/2019 documented as of this encounter (statuses as of 04/27/2023) Medications Medication Sig Dispensed Refills Start Date [...] Contour Next Test In Vitro Strip (Glucose Blood)Indications:T ype 2 diabetes mellitus with hemoglobin A1c goal of less than 8.0% ([facility]) Use to test blood sugar once a day DXe11.9 100 Strip 3 10/07/2021 Active High Potency Iron 65 MG Oral Tablet Take 65 mg by mouth in the morning. One daily. 0 Active Triamcinolone Acetonide 0.1 % External Cream (Aristocort)Indicat ions:Eczema, unspecified type Apply topically to affected area 2 times a day. To affected area for up to two weeks. 60 g 5 07/15/2022 Active Apixaban 5 MG Oral Tablet (Eliquis)Indication s:Nonrheumatic aortic valve stenosis Take 1 Tablet by [...] 01/26/2023 Active Allopurinol 100 MG Oral Tablet (Zyloprim)Indicatio ns:Gout TAKE 1 TABLET IN THE MORNING 90 Tablet 3 04/16/2023 Active metFORMIN HCl ER 500 MG Oral Tablet Extended Release 24 Hour (Glucophage XR)Indications:Type 2 diabetes mellitus with hemoglobin A1c goal of less than 8.0% (HCC) Take 1 Tablet by mouth in the morning and 1 Tablet before bedtime. 180 Tablet 3 04/16/2023 Active Trulicity 1.5 MG/0.5ML Subcutaneous Solution Pen-injector (Dulaglutide)Indica tions:Type 2 diabetes mellitus with hemoglobin A1c goal [...] before bedtime. 180 Tablet 3 04/16/2023 Active Cephalexin 500 MG Oral CapsuleIndications: Suspected urinary tract infection Take 1 Capsule by mouth in the morning and 1 Capsule before bedtime. Do all this for 7 days. 14 Capsule 0 04/21/2023 04/28/2023 Active documented as of this encounter (statuses as of 04/27/2023) Active Problems Problem Noted Date Age-related osteoporosis [...] as of this encounter (statuses as of 04/27/2023) Resolved Problems Problem Noted Date Resolved Date [...] 11/18/2009 0 Overview: Stefanie Powell RN Outpatient Tunnel Elastic Operator LockstitchSenior Foreman number [phone] Fax number [phone] Hypotension 11/08/2009 12/19/2012 Follow-up examination, following other [...] 02/17/2008 03/12/2017 Anticoagulation management encounter 02/17/2008 08/20/2008 joint terminal attack controller current use of anticoagulant therapy 0 02/17/2008 [...] as of this encounter (statuses as of 04/27/2023) Immunizations Name Administration Dates Next Due COVID-19 mRNA, LNP-s, No Pre serve, 2-Dose Series ([facility]) 05/27/2021 COVID-19, LNP-s, No Preserve , Rodrick-sucrose, Ages 12+ ([facility]) 02/03/2022 COVID-19, MRNA-LNP, PF, 30 M CG/0.3 mL, 12 yrs and above, IM (Pfizer) 04/27/2023 Covid-19 Ad26, Single Dose ([employer] [facility]) 10/25/2020 Covid-19, Mrna, Lnp-s, Pf, B ivalent, 30 Mcg, IM, 12 yrs and above ([facility]) 06/09/2022 H1N1 2009 Influenza, IM 08/02/2009 Pneumococcal [...] Styles MD [address] [place] [address] 06/08/2023 Nurse Only Ancillary Movjoseey, Nurse Annual [address] [place] [address] 08/04/2023 Office Visit Family Medicine Madhuri Galicia, [address] [place] [address] 01/19/2024 Imaging Radiology Health Maintenance Due Date Last Done Comments COLONOSCOPY-EVERY 5 YRS AGES 18-100 01/05/2018 01/05/2013, 01/05/2013, 06/03/2011, Additional history exists Diabetic Foot Exam 03/29/2020 03/29/2019, 0 03/03/2016, 01/08/2015, Additional history exists COVID-19 Vaccine ( season) 2023 04/27/2023, 06/09/2022, 02/03/2022, Additional history exists Influenza Vaccine (FLU shot) (#1) 2023 04/27/2023, 06/04/2022, 05/05/2021, Additional history exists Depression Screening 06/04/2023 06/04/2022 GFR 07/29/2023 01/26/2023, 12/19, 10/20/2021, Additional history exists HbA1c 07/29/2023 01/26/2023, 06/19, 01/15/2022, Additional history exists B-12 01/27/2024 01/26/2023, 10/18, 10/18/2020, Additional history exists CKD HGB USE SMARTSET 96980 01/27/202401/26, 01/15/2022, 06/12/2021, Additional history exists CKD PHOS USE SMARTSET 49928 01/27/202401/16, 11/05/2021, 10/18/2020, Additional history exists Albumin/Creatinine [...] D LEVEL ONCE IN A LIFETIME-USE SMARTSET# 35427 Completed 01/26/2023, 01/03/2020, 04/22/2018, Additional history exists [...] this encounter Medical Devices Implanted Type Area Mergers And Acquisitions Attorney Device Identifier Shelf Expiration Date Model / Serial / Lot Alloderm 2x4 Sheet [id number] - [id number] Implanted:Qty : 1 on 11/08/2009 at [place] [facility] [place] Tissue - Human N/A: Abdomen LIFE CELL AFIA 02/16/2011 [id number] / / [id number] Mesh 10 X 14 [id number] - [id number] Implanted:Qty : 1 on 02/02/2011 at [place] [facility] [place] N/A: Abdomen [employer] AFIA 01/03/2015 [id number] / / [id number] Pelvic Coil 2 Implanted:Qty : 5 on 02/04/2011 at RADIOLOGY [facility] [place] Left: Pelvis [employer] / / [id number] Description:figure 8 documented as of this encounter Advance Directives Documents on File Type Date Recorded Patient Tub Chucker Expl anation Advance Directives and Livin g Will 09/29/2017 LIVING WILL Power of Certifier 09/29/2017 POWER OF A TTORNEY Latest Code [...] the patient have Health Care Power of Certifier? No Full Code 01/18/2010 8:53 PM 01/30/2010 6:41 PM This o rder reflects the patients wishes and were consensually agreed upon. Question Answer Comments Discussion of Advance Directives occurred with: Patient Does the patient have a Living Will? No Does the patient have Health Care Power of Certifier? No Full Code 11/18/2009 11:54 AM 11/19/2009 4:09 PM This o rder reflects the patients wishes and were consensually agreed upon. Question Answer Comments Discussion of Advance Directives occurred with: Patient Does the patient have a Living Will? No Does the patient have Health Care Power of Certifier? No Full Code 11/13/2009 8:29 AM 11/14/2009 5:08 PM This order reflects the patients wishes and were consensually agreed upon. Care Teams Traffic Superintendent Relationship Specialty Start Date End Date Madhuri Galicia[address] [place] [address] PCP - General Internal Medicine 02/16/17 documented as of this encounter
--- OUTSIDE RECORDS SUMMARY | 2023-07-12 11:07 | External Medical Summary | Summary of Care ---
Author Name Unknown Organization [facility] Address [address] [facility] [place] [address] Phone [phone] Care Team Providers Care Mold Sprayer Name Role Phone Madhuri Galicia DO Primary Care Provider [phone] Encounter Details Date Type Department Care Team Description 02/22/2023 Orders Only Family Medicine [address] [place] [address] Madhuri Galicia [address] [place] [address] Allergies Active Allergy Reactions Severity Noted Date Comments Ben Inhibitors 12/05/2012- 2009 Stated that she does not have an allergy to Ben Inhibitors. 06/08/16 States she does not have allergy to Ben inhibitors 03/29/2019 documented as of this encounter (statuses as of 02/22/2023) Medications Medication Sig Dispensed Refills Start Date [...] goal of less than 8.0% ([facility]) Use to test blood sugar once a day DXe11.9 100 Strip 3 10/07/2021 Active Trulicity 1.5 MG/0.5ML Subcutaneous Solution Pen-injector (Dulaglutide)Indicat ions:Type 2 diabetes mellitus with hemoglobin A1c goal of less than 8.0% ([facility]) Inject under the skin 1.5 mg [...] as of this encounter (statuses as of 02/22/2023) Active Problems Problem Noted Date Age-related osteoporosis [...] as of this encounter (statuses as of 02/22/2023) Resolved Problems Problem Noted Date Resolved Date [...] 11/18/2009 0 Overview: Stefanie Powell RN Outpatient Vice President Precision Market InsightsGeriatric Nursing Assistant number [phone] Fax number [phone] Hypotension 11/08/2009 12/19/2012 Follow-up examination, following other [...] 02/17/2008 03/12/2017 Anticoagulation management encounter 02/17/2008 08/20/2008 [facility] current use of anticoagulant therapy 0 02/17/2008 [...] as of this encounter (statuses as of 02/22/2023) Immunizations Name Administration Dates Next Due COVID-19 mRNA, LNP-s, No Pre serve, 2-Dose Series ([facility]) 05/27/2021 COVID-19, LNP-s, No Preserve , Rodrick-sucrose, Ages 12+ (Pfizer) 02/03/2022 Covid-19 Ad26, Single Dose ([facility]/J&J) 10/25/2020 Covid-19, Mrna, Lnp-s, Pf, B ivalent, [...] Styles MD [address] [place] [address] 06/08/2023 Nurse Only Ancillary Movalley, Nurse Annual [address] [place] [address] 08/04/2023 Office Visit Family Medicine Madhuri Galicia, [address] [place] [address] 01/19/2024 Imaging Radiology Health Maintenance Due Date Last Done Comments COLONOSCOPY-EVERY 5 YRS AGES 18-100 01/05/2018 01/05/2013, 01/05/2013, 06/03/2011, Additional history exists DIABETES-FOOT EXAM 03/29/2020 03/29/2019, 0 03/03/2016, 01/08/2015, Additional history exists DIABETES-EYE EXAM 11/23/2022 02/19/2023, , 10/16/2020, Additional history exists Influenza Vaccine (FLU shot) (#1) 2023 06/04/2022, 05/05/2021, 03/30/2020, Additional history exists Depression Screening, Annual for Pts 12 and Over 06/04/2023 06/04/2022 GFR 07/29/2023 01/26/2023, 12/19, 10/20/2021, Additional history exists HbA1c 07/29/2023 01/26/2023, 06/19, 01/15/2022, Additional history exists B-12 01/27/2024 01/26/2023, 10/18, 10/18/2020, Additional history exists CKD HGB USE SMARTSET 31192 01/27/202401/26, 01/15/2022, 06/12/2021, Additional history exists CKD PHOS USE SMARTSET 56729 01/27/202401/16, 11/05/2021, 10/18/2020, Additional history exists Albumin/Creatinine [...] D LEVEL ONCE IN A LIFETIME-USE SMARTSET# 26660 Completed 01/26/2023, 01/03/2020, 04/22/2018, Additional history exists [...] this encounter Medical Devices Implanted Type Area Pull Worker Device Identifier Shelf Expiration Date Model / Serial / Lot Alloderm 2x4 Sheet [id number] - [id number] Implanted:Qty : 1 on 11/08/2009 at OR [facility] [place] Tissue - Human N/A: Abdomen LIFE CELL AFIA 02/16/2011 [id number] / / [id number] Mesh 10 X 14 [id number] - [id number] Implanted:Qty : 1 on 02/02/2011 at OR [facility] [place] N/A: Abdomen [employer] AFIA 01/03/2015 [id number] / / [id number] Pelvic Coil 2 Implanted:Qty : 5 on 02/04/2011 at RADIOLOGY [facility] [place] Left: Pelvis [employer] / / [id number] Description:figure 8 documented as of this encounter Procedures Procedure Name Priority Date/Time Associated Diagnosis Comments DIABETIC EYE EXAM Routine 02/19/2023 documented in this encounter Results * DIABETIC EYE EXAM (02/19/2023) 02/19/2023 Albert Dickerson OD OTHER OUTSIDE LAB (SEE SCANNED REPORT) documented in this encounter Advance Directives Documents on File Type Date Recorded Patient Lathe Sander Expl anation Advance Directives and Livin g Will 09/29/2017 LIVING WILL Power of Thimble Press Operator 09/29/2017 POWER OF A TTORNEY [...] the patient have Health Care Power of Thimble Press Operator? No Full Code 01/18/2010 8:53 PM 01/30/2010 6:41 PM This o rder reflects the patients wishes and were consensually agreed upon. Question Answer Comments Discussion of Advance Directives occurred with: Patient Does the patient have a Living Will? No Does the patient have Health Care Power of Thimble Press Operator? No Full Code 11/18/2009 11:54 AM 11/19/2009 4:09 PM This o rder reflects the patients wishes and were consensually agreed upon. Question Answer Comments Discussion of Advance Directives occurred with: Patient Does the patient have a Living Will? No Does the patient have Health Care Power of Thimble Press Operator? No Full Code 11/13/2009 8:29 AM 11/14/2009 5:08 PM This order reflects the patients wishes and were consensually agreed upon. Care Teams Mold Sprayer Relationship Specialty Start Date End Date Madhuri Galicia[address] [place] [address] PCP - General Internal Medicine 02/16/17 documented as of this encounter
--- OUTSIDE RECORDS SUMMARY | 2023-07-12 11:07 | External Medical Summary | Summary of Care ---
Author Name Unknown Organization [facility] Address [address] [place] [facility] [place] [address] Phone [phone] Care Team Providers Care Cotton Farmer Name Role Phone GaliciaMadhuri martinez DO Primary Care Provider [phone] Encounter Details Date Type Department Care Team Description 02/26/2023 Telephone Orthopaedics [address] [phone] Terrell Styles MD [address] [facility] [place] [address] Allergies Active Allergy Reactions Severity Noted Date Comments Ben Inhibitors 12/05/2012- 2009 Stated that she does not have an allergy to Ben Inhibitors. 06/08/16 States she does not have allergy to Ben inhibitors 03/29/2019 documented as of this encounter (statuses as of 03/23/2023) Medications Medication Sig Dispensed Refills Start Date [...] as of this encounter (statuses as of 03/23/2023) Active Problems Problem Noted Date Age-related osteoporosis [...] as of this encounter (statuses as of 03/23/2023) Resolved Problems Problem Noted Date Resolved Date [...] 11/18/2009 0 Overview: Stefanie Powell RN Outpatient [place] TeacherBoiler Control Room Operator number [phone] Fax number [phone] Hypotension 11/08/2009 12/19/2012 Follow-up examination, following other [...] 02/17/2008 03/12/2017 Anticoagulation management encounter 02/17/2008 08/20/2008 termite control representative current use of anticoagulant therapy 0 02/17/2008 [...] as of this encounter (statuses as of 03/23/2023) Immunizations Name Administration Dates Next Due COVID-19 mRNA, LNP-s, No Pre serve, 2-Dose Series ([employer]) 05/27/2021 COVID-19, LNP-s, No Preserve , Rodrick-sucrose, Ages 12+ (Pfizer) 02/03/2022 Covid-19 Ad26, Single Dose ([employer]) 10/25/2020 Covid-19, Mrna, Lnp-s, Pf, B ivalent, 30 Mcg, IM, 12 yrs and above (Pfizer) 06/09/2022 H1N1 2009 Influenza, IM 08/02/2009 Pneumococcal Conjugate Vacc, 13 Valent (Prevnar) 03/06/2015,12/21/2014 Pneumococcal Polysaccharide PPV23 (Pneumovax) 06/08/2016,07/07/2005 Season Influenza, Quad, PF, Adjuvanted, 65+ Yrs, [...] encounter Miscellaneous Notes * Telephone Encounter - Jeannine Almonte LPN - 03/23/2023 3:04 PM EDT Spoke with pt, mailed printed copy of order. Pt plans to contact [facility]; advised her if shehas not received the order in the mail yet, please call us back, we are happy to fax it for her. * Telephone Encounter - Terrell Styles MD - 02/26/2023 2:07 PM EDT Ordered. Please thank him for that recommendation. Uncertain where the patient will get it though but I have placed the order. * Telephone Encounter - Jeannine Almonte LPN - 02/26/2023 1:22 PM EDT Received a call from pt's Physical Therapist Sunny Aguirre, he notices pt hyperextends her L knee with ambulation, is concerned her L leg is neurologically weaker. Asking if you would consider order a Puerto Rican Knee cage brace to help with this. Thank you :) documented in this encounter Plan of Treatment Upcoming Encounters Date Type Specialty Care Team Description 04/15/2023 Office Visit Orthopedics Terrell Styles MD [address] [place] [address] 06/08/2023 Nurse Only Ancillary Daniella Nurse [address] [place] [address] 08/04/2023 Office Visit Family Medicine Madhuri Gailcia[address] [place] [address] 01/19/2024 Imaging Radiology Health Maintenance Due Date [...] Additional history exists CKD HGB USE SMARTSET 77545 01/27/202401/26, 01/15/2022, 06/12/2021, Additional history exists CKD PHOS USE SMARTSET 69033 01/27/202401/16, 11/05/2021, 10/18/2020, Additional history exists Albumin/Creatinine [...] D LEVEL ONCE IN A LIFETIME-USE SMARTSET# 85142 Completed 01/26/2023, 01/03/2020, 04/22/2018, Additional history exists [...] this encounter Medical Devices Implanted Type Area Electrician Chief Device Identifier Shelf Expiration Date Model / Serial / Lot Alloderm 2x4 Sheet [id number] - [id number] Implanted:Qty : 1 on 11/08/2009 at [place] [facility] [place] Tissue - Human N/A: Abdomen LIFE CELL AFIA 02/16/2011 [id number] / / [id number] Mesh 10 X 14 [id number] - [id number] Implanted:Qty : 1 on 02/02/2011 at [place] [facility] [place] N/A: Abdomen A[employer]IUM MED[employer] AFIA 01/03/2015 [id number] / / [id number] Pelvic Coil 2 Implanted:Qty : 5 on 02/04/2011 at RADIOLOGY [facility] Left: Pelvis Pictorious / / [id number] Description:figure 8 documented as of this encounter Visit Diagnoses Diagnosis Primary osteoarthritis of left knee- Primary Primary localized osteoarthrosis, lower leg Muscular deconditioning Muscular wasting and disuse atrophy, not elsewhere classified documented in this encounter Advance Directives Documents on File Type Date Recorded Patient Detail Maker And Fitter Expl anation Advance Directives and Livin g Will 09/29/2017 LIVING WILL Power of Chainman 09/29/2017 POWER OF A TTORNEY Latest Code [...] the patient have Health Care Power of Chainman? No Full Code 01/18/2010 8:53 PM 01/30/2010 6:41 PM This o rder reflects the patients wishes and were consensually agreed upon. Question Answer Comments Discussion of Advance Directives occurred with: Patient Does the patient have a Living Will? No Does the patient have Health Care Power of Chainman? No Full Code 11/18/2009 11:54 AM 11/19/2009 4:09 PM This o rder reflects the patients wishes and were consensually agreed upon. Question Answer Comments Discussion of Advance Directives occurred with: Patient Does the patient have a Living Will? No Does the patient have Health Care Power of Chainman? No Full Code 11/13/2009 8:29 AM 11/14/2009 5:08 PM This order reflects the patients wishes and were consensually agreed upon. Care Teams Cotton Farmer Relationship Specialty Start Date End Date Madhuri Galicia, [address] [place] [address] PCP - General Internal Medicine 02/16/17 documented as of this encounter
--- OUTSIDE RECORDS SUMMARY | 2023-07-12 11:07 | External Medical Summary | Summary of Care ---
Author Name Unknown Organization [facility] Address [address] [facility] [place] [address] Phone [phone] Care Team Providers Care Service Desk Associate Name Role Phone GaliciaMadhuri martinez DO Primary Care Provider Encounter Details Date Type Department Care Team Description 02/26/2023 Telephone Orthopaedics [address] [address] Terrell Styles MD [address] [facility] [place] [address] Allergies Active Allergy Reactions Severity Noted Date Comments Ben Inhibitors 12/05/2012- 2009 Stated that she does not have an allergy to Ben Inhibitors. 06/08/16 States she does not have allergy to Ben inhibitors 03/29/2019 documented as of this encounter (statuses as of 02/26/2023) Medications Medication Sig Dispensed Refills Start Date [...] as of this encounter (statuses as of 02/26/2023) Active Problems Problem Noted Date Age-related osteoporosis [...] as of this encounter (statuses as of 02/26/2023) Resolved Problems Problem Noted Date Resolved Date [...] 11/18/2009 0 Overview: Stefanie Powell RN Outpatient Mangle Press CatcherLock Technician number [phone] Fax number [phone] Hypotension 11/08/2009 12/19/2012 Follow-up examination, following other [...] 02/17/2008 03/12/2017 Anticoagulation management encounter 02/17/2008 08/20/2008 [facility]DC current use of anticoagulant therapy 0 02/17/2008 [...] as of this encounter (statuses as of 02/26/2023) Immunizations Name Administration Dates Next Due COVID-19 mRNA, LNP-s, No Pre serve, 2-Dose Series ([employer]) 05/27/2021 COVID-19, LNP-s, No Preserve , Rodrick-sucrose, Ages 12+ (Pfizer) 02/03/2022 Covid-19 Ad26, Single Dose ([employer]) 10/25/2020 Covid-19, Mrna, Lnp-s, Pf, B ivalent, [...] encounter Miscellaneous Notes * Telephone Encounter - Terrell Styles MD [...] Asking if you would consider order a Occitan Knee cage brace to help with this. Thank you :) documented in this encounter Plan of Treatment Upcoming Encounters Date Type Specialty Care Team Description 04/15/2023 Office Visit Orthopedics Terrell Styles MD [address] [place] [address] 06/08/2023 Nurse Only Ancillary Daniella, Nurse Annual [address] [place] [address] 08/04/2023 Office Visit Family Medicine Madhuri Galicia, [address] [facility] [place] [address] 01/19/2024 Imaging Radiology Health Maintenance Due Date [...] Additional history exists CKD HGB USE SMARTSET 67639 01/27/202401/26, 01/15/2022, 06/12/2021, Additional history exists CKD PHOS USE SMARTSET 16896 01/27/202401/16, 11/05/2021, 10/18/2020, Additional history exists Albumin/Creatinine [...] D LEVEL ONCE IN A LIFETIME-USE SMARTSET# 63970 Completed 01/26/2023, 01/03/2020, 04/22/2018, Additional history exists [...] this encounter Medical Devices Implanted Type Area Stone Driller Device Identifier Shelf Expiration Date Model / Serial / Lot Alloderm 2x4 Sheet [id number] - [id number] [place]planted:[place] [facility] [place] Human N/A: Abdomen LIFE CELL AFIA 02/16/2011 [id number] / / [id number] Mesh 10 X 14 [id number] - [id number] Implanted:Qty : 1 [place] 02[place]02[place]2011 [place] [facility] [place]/A: Abdomen [employer] AFIA 01/03/2015 [id number] / / [id number] Pelvic Coil 2 Implanted:Qty : 5 on 02/04/2011 at [facility] Left: Pelvis [id number] / / [id number] Description:figure 8 documented as of this encounter Visit Diagnoses Diagnosis Primary osteoarthritis of left knee- Primary Primary localized osteoarthrosis, lower leg Muscular deconditioning Muscular wasting and disuse atrophy, not elsewhere classified documented in this encounter Advance Directives Documents on File Type Date Recorded Patient Auto Damage Adjuster Expl anation Advance Directives and Livin g Will 09/29/2017 LIVING WILL Power of Division Engineer 09/29/2017 POWER OF A TTORNEY Latest Code [...] the patient have Health Care Power of Division Engineer? No Full Code 01/18/2010 8:53 PM 01/30/2010 6:41 PM This o rder reflects the patients wishes and were consensually agreed upon. Question Answer Comments Discussion of Advance Directives occurred with: Patient Does the patient have a Living Will? No Does the patient have Health Care Power of Division Engineer? No Full Code 11/18/2009 11:54 AM 11/19/2009 4:09 PM This o rder reflects the patients wishes and were consensually agreed upon. Question Answer Comments Discussion of Advance Directives occurred with: Patient Does the patient have a Living Will? No Does the patient have Health Care Power of Division Engineer? No Full Code 11/13/2009 8:29 AM 11/14/2009 5:08 PM This order reflects the patients wishes and were consensually agreed upon. Care Teams Service Desk Associate Relationship Specialty Start Date End Date Mahduri Galicia, [address] [place] [phone] PCP - General Internal Medicine 02/16/17 documented as of this encounter
--- OUTSIDE RECORDS SUMMARY | 2023-07-12 11:08 | External Medical Summary | Summary of Care ---
Author Name Unknown Organization [facility] Address [address] [place] [facility] [place] [address] Phone [phone] Care Team Providers Care Rehabilitation Caseworker Name Role Phone Madhuri Galicia DO Primary Care Provider [phone] Reason for Visit * Reason Comments Re-Check 6 mo Encounter Details Date Type Department Care Team Description 01/26/2023 Office Visit Family Medicine [address] [place] [id number] Madhuri Galicia DO [address] [place] [address] [place] [address] Type 2 diabetes mellitus with hemoglobin A1c goal of less than 8.0% ([facility])*; Type 2 diabetes mellitus with stage 3b chronic kidney disease, unspecified whether termite treater helper insulin use ([facility]); HTN, goal below 140/90; Hyperlipidemia with target LDL less than 70; Chronic gout due to renal impairment without tophus, unspecified site; Primary hypercoagulable state ([facility]); Vitamin D deficiency; Age-related osteoporosis without current pathological fracture Allergies Active Allergy Reactions Severity Noted Date Comments Ben Inhibitors 12/05/2012- 2009 Stated that she does not have an allergy to Ben Inhibitors. 06/08/16 States she does not have allergy to Ben inhibitors 03/29/2019 documented as of this encounter (statuses as of 01/26/2023) Medications Medication Sig Dispensed Refills Start Date [...] as of this encounter (statuses as of 01/26/2023) Active Problems Problem Noted Date Age-related osteoporosis [...] as of this encounter (statuses as of 01/26/2023) Resolved Problems Problem Noted Date Resolved Date [...] 11/18/2009 0 Overview: Stefanie Powell RN Outpatient Blend Plant OperatorWatermelon Harvesting Supervisor number [phone] Fax number [phone] Hypotension 11/08/2009 12/19/2012 Follow-up examination, following other [...] 02/17/2008 03/12/2017 Anticoagulation management encounter 02/17/2008 08/20/2008 assistant terminal manager current use of anticoagulant therapy 0 02/17/2008 [...] as of this encounter (statuses as of 01/26/2023) Immunizations Name Administration Dates Next Due COVID-19 mRNA, LNP-s, No Pre serve, 2-Dose Series ([employer]) 05/27/2021 COVID-19, LNP-s, No Preserve , Rodrick-sucrose, Ages 12+ (Pfizer) 02/03/2022 Covid-19 Ad26, Single Dose ([employer]) 10/25/2020 Covid-19, Mrna, Lnp-s, Pf, B ivalent, [...] Sign Reading Time Taken Comments Blood Pressure 126/78 01/26/2023 11:40 AM EDT Pulse 66 01/26/2023 11:40 AM EDT Temperature 35.9 C (96.6 F) 01/26/2023 11:40 AM E DT Respiratory Rate - - Oxygen Saturation 99% 01/26/2023 11:40 AM EDT Inhaled Oxygen Concentration - - Weight 61 kg (134 lb 6.4 oz) 01/26/2023 11:40 AM EDT Height - - Body Mass Index 23.07 06/04/2022 1:18 PM EST documented in this encounter Progress Notes * Madhuri Galicia, - 01/26/2023 11:38 AM EDT Subjective: Shikha Ricks is a 77 year old female. Chief Complaint Patient presents with Re-Check 6 mo HPI: Shikha Ricks presents today for routine follow up. She was seen last month for left knee pain. Will see Dr. Clayton next week. She is wearing a braceand is doing okay with this. Recent DEXA showed osteoporosis. She would like to start Fosamax. Blood sugars are doing well - running in the 100s. No low blood sugars. Her eye exam is next month - Dr. Dickerson. She declines colonoscopy. No bleeding problems on Eliquis. Bowels are good on colestipol. No gout flares. Stomach is okay on pantoprazole. BP is well controlled here today. No chest pain or heaviness. No lightheadedness or dizziness. She had been following with the wound clinic in [place] for a wound on her right heel. This is healed now. PMH: Patient Active Problem List Diagnosis Code Venous [...] cyst K86.2 HTN, goal below 140/90 I10 Current Outpatient Medications Medication Sig Dispense Refill ASPIRIN EC 81 MG PO TBEC 1 TABLET DAILY 30 Tab 0 FISH OIL 1000 MG PO CAPS four capsules by mouth daily Cholecalciferol (VITAMIN D) 1000 units Tablet Take 1 Tablet by mouth in the morning. Olmesartan Medoxomil 5 MG Oral Tablet Take 5 mg by mouth in the morning and 5 mg before bedtime. Trulicity 1.5 MG/0.5ML Subcutaneous Solution Pen-injector (Dulaglutide) Inject under the skin 1.5 mg once a week . 6 mL 3 metFORMIN HCl ER 500 MG Oral Tablet Extended Release 24 Hour (Glucophage XR) Take by mouth 1 Tablet in the morning AND 1 Tablet before bedtime. 180 Tablet 3 Metoprolol Tartrate 25 MG Oral Tablet (Lopressor) Take by mouth 1 Tablet in the morning AND 1 Tablet before bedtime. 180 Tablet 3 Allopurinol 100 MG Oral Tablet (Zyloprim) TAKE 1 TABLET IN THE MORNING 90 Tablet 3 Pantoprazole Sodium 20 MG Oral Tablet Delayed Release (Protonix) TAKE 1 TABLET IN THE MORNING 90 Tablet 1 High Potency Iron 65 MG Oral Tablet [...] 1 Tablet before bedtime. 180 Tablet 3 Contour Next Test In Vitro Strip (Glucose Blood) Use to test blood sugar once a day DXe11.9 100Strip 3 No current facility-administered medications for this visit. Review of patient's allergies indicates: Allergen Reactions Ben Inhibitors - 2009 Stated that she does not have an allergy to Ben Inhibitors. 06/08/16 States she does not have allergy to Ben inhibitors 03/29/2019 Objective: BP 126/78 | Pulse 66 | Temp 35.9 C (96.6 F) | Wt 61 kg (134 lb 6.4 oz) | LMP 10/30/1999 | SpO2 99% | BMI 23.07 kg/m | BSA 1.66 m General: alert, healthy, no distress, well nourished and well developed Neck: supple, no adenopathy, thyroid normal size, non-tender, without nodularity Heart: regular rate & rhythm and no murmur Lungs: chest symmetric with normal AP diameter, no chest deformities noted, normal respiratory rateand rhythm, lungs clear to auscultation Abdomen: abdomen soft and non-tender Extremities: no joint deformities, effusion, or inflammation, no edema, mottling of the lower extremities is present Neuro Exam: alert & oriented x 3 with fluent speech, no focal motor/sensory deficits, gait normal Skin: skin color, texture, turgor are normal, no rashes or significant lesions ASSESSMENT/PLAN: Type 2 diabetes mellitus with hemoglobin A1c goal of less than 8.0% ([facility]) (Primary) - update labs, continue same meds. Type 2 diabetes mellitus with stage 3b chronic kidney disease, unspecified whether snf insulin use ([facility]) HTN, goal below 140/90 - well controlled without orthostatic symptoms. Hyperlipidemia with target LDL less than 70 Chronic gout due to renal impairment without tophus, unspecified site - continue allopurinol Primary hypercoagulable state (HCC) - with history of thrombosis. On eliquis and tolerating well. Vitamin D deficiency - 25-HYDROXY VITAMIN D; Future; Expected date: 01/26/2023 Osteoporosis - start Fosamax. Will need to watch her renal function. - Alendronate Sodium 70 MG Oral Tablet (Fosamax); Take 1 Tablet by mouth once a week. with 8 oz. water 30 minutes before first meal of the day. Remain upright for 30 min after taking tablet. Follow-up: Return in about 6 months (around 07/29/2023). | Check-out note: Have pt sign proxy form for [facility] to link her chart to her 's log-in. Labs today. Madhuri Galicia DO documented in this encounter Nursing Notes * MARICRUZ Torres - 01/26/2023 11:37 AM EDT She is here for her 6 mo recheck. She recently saw Madalyn for her knee and is going to see orthopedics for it. She is doing well otherwise. documented in this encounter Plan of Treatment Upcoming Encounters Date Type Specialty Care Team Description 02/04/2023 Office Visit Orthopedics Terrell Styles MD [address] [place] [address] 06/08/2023 Nurse Only Ancillary Daniella, Nurse Annual Wellness [address] [place] [address] [place] [address] 08/04/2023 Office Visit Family Medicine Madhuri Galicia DO [address] [place] [address] [place] [address] 01/19/2024 Imaging Radiology Pending Results Name Type Priority Associated Diagnoses Date /Time 25-HYDROXY VITAMIN D Lab Routine Vitamin D deficiency 01/26/2023 12:23 PM EDT Scheduled Orders Name Type Priority Associated Diagnoses Orde r Schedule 25-HYDROXY VITAMIN D Lab Routine Vitamin D deficiency Expected: 01/26/2023 (Approximate), Expires: 01/26/2024 Health Maintenance Due Date Last Done Comments COLONOSCOPY-EVERY 5 YRS AGES 18-100 01/05/2018 01/05/2013, 01/05/2013, 06/03/2011, Additional history exists DIABETES-FOOT EXAM 03/29/2020 03/29/2019, 0 03/03/2016, 01/08/2015, Additional history exists GFR 07/17/2022 01/15/2022, 04/0 10/2021, 10/16/2021, Additional history exists B-12 11/05/2022 11/05/2021, 04/0 08/2020, 05/06/2020, Additional history exists CKD PHOS USE SMARTSET 95990 11/05/2022/2 , 10/18/2020, 01/03/2020, Additional history exists Albumin/Creatinine Ratio 11/06/2022 022, 01/03/2020, 04/25/2019, Additional history exists DIABETES-EYE EXAM 11/23/2022 11/23/2021, , 08/22/2019, Additional history exists HbA1c 01/13/2023 07/15/2022, 12/19, 11/05/2021, Additional history exists CKD HGB USE SMARTSET 57680 01/15/202301/15, 06/12/2021, 04/17/2021, Additional history exists Influenza Vaccine (FLU shot) (#1) 2023 06/04/2022, 05/05/2021, 03/30/2020, Additional history exists Depression Screening, Annual for Pts 12 and Over 06/04/2023 06/04/2022 DXA Scan 12/02/2024 12/02/2022, 01/17, 05/01/2003, Additional history exists DTaP,Tdap,and Td Vaccines (3 - Td or Tdap) 04/26/2029 04/26/2019, 02/09/2008 Pneumococcal Vaccine: 65+ Years Completed 06/08/2016, 03/06/2015, 12/21/2014, Additional history exists Zoster Vaccines Completed 05/29/2019, 03/19, 07/05/2008 VITAMIN D LEVEL ONCE IN A LIFETIME-USE SMARTSET# 63960 Completed 01/03/2020, 04/22/2018, 03/12/2017, Additional history exists COVID-19 Vaccine Completed 06/09/2022, , 05/27/2021, Additional history exists GARDASIL-HPV IMMUNIZATION SERIES Aged Out No longer eligible based on patient's age to complete this topic Hepatitis B Aged Out No longer eligi ble based on patient's age to complete this topic MENINGOCOCCAL (MENACTRA/MENVEO) Aged Out No longer eligible based on patient's age to complete this topic documented as of this encounter Medical Devices Implanted Type Area Sterile Processing Manager Device Identifier Shelf Expiration Date Model / Serial / Lot Alloderm 2x4 Sheet [id number] - [id number] Implanted:Qty : 1 on 11/08/2009 [place] [facility] [place] - Human N/A: Abdomen LIFE CELL AFIA 02/16/2011 [id number] / / [id number] Mesh 10 X 14 [id number] - [id number] Implanted:Qty : 1 on 02/02/2011 [place] [facility] [place] N/A: Abdomen [employer] AFIA 01/03/2015 [id number] / / [id number] Pelvic Coil 2 Implanted:Qty : 5 on 02/04/2011 at [place] [facility] [place] Left: Pelvis [employer] / / [id number] Description:figure 8 documented as of this encounter Visit Diagnoses Diagnosis Type 2 diabetes mellitus with stage 3b chronic kidney disease, unspecified whether snf insulin use (HCC) HTN, goal below 140/90 Unspecified essential hypertension Hyperlipidemia with target LDL less than 70 Other and unspecified hyperlipidemia Chronic gout due to renal impairment without tophus, unspecified site Primary hypercoagulable state (HCC) Primary hypercoagulable state Vitamin D deficiency Unspecified vitamin D deficiency Age-related osteoporosis without current pathological fracture Senile osteoporosis documented in this encounter Advance Directives Documents on File Type Date Recorded Patient Plant Manager Expl anation Advance Directives and Livin g Will 09/29/2017 LIVING WILL Power of Student Success Counselor 09/29/2017 POWER OF A TTORNEY Latest [...] the patient have Health Care Power of Student Success Counselor? No Full Code 01/18/2010 8:53 PM 01/30/2010 6:41 PM This o rder reflects the patients wishes and were consensually agreed upon. Question Answer Comments Discussion of Advance Directives occurred with: Patient Does the patient have a Living Will? No Does the patient have Health Care Power of Student Success Counselor? No Full Code 11/18/2009 11:54 AM 11/19/2009 4:09 PM This o rder reflects the patients wishes and were consensually agreed upon. Question Answer Comments Discussion of Advance Directives occurred with: Patient Does the patient have a Living Will? No Does the patient have Health Care Power of Student Success Counselor? No Full Code 11/13/2009 8:29 AM 11/14/2009 5:08 PM This order reflects the patients wishes and were consensually agreed upon. Care Teams Rehabilitation Caseworker Relationship Specialty Start Date End Date Madhuri Galicia, [address] [place] [address] PCP - General Internal Medicine 02/16/17 documented as of this encounter"
--- OUTSIDE RECORDS SUMMARY | 2023-07-12 11:08 | External Medical Summary | Summary of Care ---
Author Name Unknown Organization [facility] Address [address] [facility] [place] [address] Phone [phone] Care Team Providers Care Java Lead Name Role Phone Madhuri Galicia DO Primary Care Provider Reason for Visit * Reason Comments Outpatient Testing Encounter Details Date Type Department Care Team Description 01/26/2023 Laboratory Laboratory [address] [place] [phone] [place] [address] Chronic kidney disease, unspecified CKD stage; Type 2 diabetes mellitus with hemoglobin A1c goal of less than 8.0% ([facility]); On intermodal dispatcher drug therapy; Vitamin D deficiency Allergies Active Allergy Reactions Severity Noted Date [...] DM type 2, not at goal 07/06/2012 06/ 3 Pain in right foot 03/08/2012 12/19/2012 [...] 11/18/2009 0 Overview: Stefanie Powell RN Outpatient Acute SpecialistRag Baler number [phone] Fax number [phone] Hypotension 11/08/2009 12/19/2012 Follow-up examination, following other [...] 02/17/2008 03/12/2017 Anticoagulation management encounter 02/17/2008 08/20/2008 alf current use of anticoagulant therapy 0 02/17/2008 [...] mRNA, LNP-s, No Pre serve, 2-Dose Series (Pfizer) 05/27/2021 COVID-19, LNP-s, No Preserve , Rodrick-sucrose, Ages 12+ (Pfizer) 02/03/2022 Covid-19 Ad26, Single Dose ([employer]) 10/25/2020 Covid-19, Mrna, Lnp-s, Pf, B ivalent, [...] Styles MD [address] [place] [address] 06/08/2023 Nurse Only Ancillary Daniella, Nurse Annual [address] [place] [address] 01/19/2024 Imaging Radiology Pending Results Name Type Priority Associated Diagnoses Date /Time COMPREHENSIVE METABOLIC PANEL Lab Routine Chronic kidney disease, unspecified CKD stage 01/26/2023 12:23 PM EDT PHOSPHORUS Lab Routine Chronic kidney disease, unspecified CKD stage 01/26/2023 12:23 PM EDT HGB Lab Routine Chronic kidney disease, unspecified CKD stage 01/26/2023 12:23 PM EDT HEMOGLOBIN A1C Lab Routine Type 2 diabetes mellitus with hemoglobin A1c goal of less than 8.0% ([facility]) 01/26/2023 12:23 PM EDT VITAMIN B12 Lab Routine On detention drug therapy 01/26/2023 12:23 PM EDT 25-HYDROXY VITAMIN D Lab Routine Vitamin D deficiency 01/26/2023 12:23 PM EDT Health Maintenance Due Date Last Done Comments COLONOSCOPY-EVERY 5 YRS AGES 18-100 01/05/2018 01/05/2013, 01/05/2013, 06/03/2011, Additional history exists DIABETES-FOOT EXAM 03/29/2020 03/29/2019, 0 03/03/2016, 01/08/2015, Additional history exists GFR 07/17/2022 01/15/2022, 04/0 10/2021, 10/16/2021, Additional history exists B-12 11/05/2022 11/05/2021, 08/2020, 05/06/2020, Additional history exists CKD PHOS USE SMARTSET 02799 11/05/202210/18, 10/18/2020, 01/03/2020, Additional history exists Albumin/Creatinine Ratio 11/06/2022 022, 01/03/2020, 04/25/2019, Additional history exists DIABETES-EYE EXAM 11/23/2022 11/23/2021, , 08/22/2019, Additional history exists HbA1c 01/13/2023 07/15/2022, 12/19, 11/05/2021, Additional history exists CKD HGB USE SMARTSET 89173 01/15/202301/15, 06/12/2021, 04/17/2021, Additional history exists Influenza [...] D LEVEL ONCE IN A LIFETIME-USE SMARTSET# 13761 Completed 01/03/2020, 04/22/2018, 03/12/2017, Additional history exists [...] this encounter Medical Devices Implanted Type Area Expander Device Identifier Shelf Expiration Date Model / Serial / Lot Evelio 2x4 Sheet [id number] - [id number] Implanted:Qty : 1 on 11/08/2009 at [facility] [place] [facility] Tissue - Human N/A: Abdomen LIFE CELL AFIA 02/16/2011 [id number] / / [id number] Mesh 10 X 14 [id number] - [id number] Implanted:Qty : 1 on 02/02/2011 at [facility] N/A: Abdomen [employer] AFIA 01/03/2015 [id number] / / [id number] Pelvic Coil 2 Implanted:Qty : 5 on 02/04/2011 at [facility] [place] [facility] Left: Pelvis ADOP / / [id number] Description:figure 8 documented as of this encounter Visit Diagnoses Diagnosis Chronic kidney disease, unspecified CKD stage Type 2 diabetes mellitus with hemoglobin A1c goal of less than 8.0% (HCC) On intermodal dispatcher drug therapy Vitamin D deficiency Unspecified vitamin D deficiency documented in this encounter Advance Directives Documents on File Type Date Recorded Patient Mechanic General Operational Test Expl anation Advance Directives and Livin g Will 09/29/2017 LIVING WILL Power of General Internist And Physician Leader 09/29/2017 POWER OF A TTORNEY Latest Code [...] the patient have Health Care Power of General Internist And Physician Leader? No Full Code 01/18/2010 8:53 PM 01/30/2010 6:41 PM This o rder reflects the patients wishes and were consensually agreed upon. Question Answer Comments Discussion of Advance Directives occurred with: Patient Does the patient have a Living Will? No Does the patient have Health Care Power of General Internist And Physician Leader? No Full Code 11/18/2009 11:54 AM 11/19/2009 4:09 PM This o rder reflects the patients wishes and were consensually agreed upon. Question Answer Comments Discussion of Advance Directives occurred with: Patient Does the patient have a Living Will? No Does the patient have Health Care Power of General Internist And Physician Leader? No Full Code 11/13/2009 8:29 AM 11/14/2009 5:08 PM This order reflects the patients wishes and were consensually agreed upon. Care Teams Java Lead Relationship Specialty Start Date End Date Madhuri Galicia[address] [place] [phone] PCP - General Internal Medicine 02/16/17 documented as of this encounter
--- OUTSIDE RECORDS SUMMARY | 2023-07-12 11:08 | External Medical Summary ---
Author Name Unknown Address Unknown Organization [id number]:[facility] [place] [address] [facility] [place] [address] Laboratory Report Ordering Provider Test Date Status APRIL CARRANZA 01/26/2023 12:23:58 Final Observation Date Value Abnormality Reference (Units ) Status BUN 01/26/2023 12:23:58 35 Above high normal 6-20 (mg/dL) Final Creatinine 01/26/2023 12:23:58 1.2 Above high normal 0.5-1.0 (mg/dL) Final Glomerular filtration rate/1.73 sq M.predicted [Volume Rate/Area] in Serum, Plasma or Blood by Creatinine-based formula (CKD-EPI) 01/26/2023 12:23:58 45 Below low normal >=60 (mL/min) Final eGFR is calculated based on the CKD-EPI 2020 equation SODIUM 01/26/2023 12:23:58 140 135-146 (m mol/L) Final Potassium 01/26/2023 12:23:58 5.3 Above high normal 3. 5-5.1 (mmol/L) Final Cl 01/26/2023 12:23:58 105 98-107 (mm ol/L) Final CO2 01/26/2023 12:23:58 21 Below low normal 22- 32 (mmol/L) Final Anion gap 01/26/2023 12:23:58 14 7-15 (mmol /L) Final Glucose 01/26/2023 12:23:58 144 Above high normal 70 -120 (mg/dL) Final Albumin 01/26/2023 12:23:58 4.0 3.8-5.0 (g /dL) Final AST (Aspartate aminotransferase) 01/26/2023 12:23:58 16 10-35 (U/L) Fin al Alk Phos 01/26/2023 12:23:58 109 35-130 (U/ L) Final Bilirubin, Total 01/26/2023 12:23:58 0.5 <=1 .2 (mg/dL) Final Calcium 01/26/2023 12:23:58 10.0 8.4-10.2 ( mg/dL) Final Protein 01/26/2023 12:23:58 6.3 6.0-8.3 (g /dL) Final ALT (Alanine aminotransferase) 01/26/2023 12:23:58 14 10-35 (U/L) Ilya meza Performing Location [facility] [place] [address] [facility] [address]
--- OUTSIDE RECORDS SUMMARY | 2023-07-12 11:08 | External Medical Summary ---
Author Name Unknown Address Unknown Organization K01:LAB[facility]ATORY [facility] [place] - [address] [place] [address] Laboratory Report Ordering Provider Test Date Status APRIL CARRANZA 01/26/2023 12:23:58 Final Deficient: <20 ng/mL
Ins ufficient: 20-29 ng/mL
Recommended/Optimum:30-50 ng/mL

Vitamin D intoxication is rare. If suspicious of Vitamin D toxicity, evaluation of serum Calcium and PTH is recommended. Observation Date Value Abnormality Reference (Units ) Status 25-OH Vitamin D total 01/26/2023 12:23:58 37 >19 (ng/mL) Final Performing Location LABORATORY [facility] - [address] [place] [address]
--- OUTSIDE RECORDS SUMMARY | 2023-07-12 11:08 | External Medical Summary ---
Author Name Unknown Address Unknown Organization [id number]:LABORATORY [facility] [place] - [address] [place] [address] Laboratory Report Ordering Provider Test Date Status TERECHNE 01/26/2023 12:23:58 Final Observation Date Value Abnormality Reference (Units ) Status Hemoglobin 01/26/2023 12:23:58 13.4 12.0-15.3 (g/dL) Final Performing Location LABORATORY [facility] - [address] [place] [address]
--- OUTSIDE RECORDS SUMMARY | 2023-07-12 11:08 | External Medical Summary ---
Author Name Unknown Address Unknown Organization K01:LABORATORY [facility] [place] - [address] [place] [address] Laboratory Report Ordering Provider Test Date Status APRIL CARRANZA 01/26/2023 12:23:58 Final Observation Date Value Abnormality Reference (Units ) Status Vitamin B12 01/26/2023 12:23:58 146 824-4345 (pg/mL) Final Performing Location LABORATORY [facility] - [address] [place] [address]
--- OUTSIDE RECORDS SUMMARY | 2023-07-12 11:08 | External Medical Summary | Summary of Care ---
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 Name Role Phone Madhuri Galicia DO Primary Care Provider Reason for Visit * Reason Comments Outpatient Testing Encounter Details Date Type Department Care Team Description 01/26/2023 Laboratory Laboratory [address] [place] [phone] [place] [address] Chronic kidney disease, unspecified CKD stage; Type 2 diabetes mellitus with hemoglobin A1c goal of less than 8.0% ([facility]); On buttermaker drug therapy; Vitamin D deficiency Allergies Active [...] 11/18/2009 0 Overview: Stefanie Powell RN Outpatient 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 Wheel Operator number [phone] Fax number [phone] Hypotension 11/08/2009 12/19/2012 Follow-up examination, following other [...] 12+ (Pfizer) 02/03/2022 Covid-19 Ad26, Single Dose ([employer]) 10/25/2020 Covid-19, Mrna, Lnp-s, Pf, B ivalent, [...] Styles MD [address] [place] [address] 06/08/2023 Nurse Only Ancillary Movyanely, Nurse Annual [address] [place] [address] 08/04/2023 Office Visit Family Medicine Madhuri Galicia, [address] [place] [address] 01/19/2024 Imaging Radiology Pending Results Name Type [...] less than 8.0% ([facility]) 01/26/2023 12:23 PM EDT VITAMIN B12 Lab Routine On buttermaker drug therapy 01/26/2023 12:23 PM EDT 25-HYDROXY [...] Additional history exists CKD PHOS USE SMARTSET 18600 11/05/2022 04/2 , 10/18/2020, 01/03/2020, Additional history exists Albumin/Creatinine Ratio 11/06/2022 022, 01/03/2020, 04/25/2019, Additional history exists DIABETES-EYE EXAM 11/23/2022 11/23/2021, , 08/22/2019, Additional history exists HbA1c 01/13/2023 07/15/2022, 12/19, 11/05/2021, Additional history exists CKD HGB USE SMARTSET 17798 01/15/202301/15, 06/12/2021, 04/17/2021, Additional history exists Influenza [...] D LEVEL ONCE IN A LIFETIME-USE SMARTSET# 79010 Completed 01/03/2020, 04/22/2018, 03/12/2017, Additional history exists [...] this encounter Medical Devices Implanted Type Area Ice Seller Device Identifier Shelf Expiration Date Model / Serial / Lot Alloderm 2x4 Sheet [id number] - [id number] Implanted:Qty : 1 on 11/08/2009 at [facility] [place] Tissue - Human N/A: Abdomen LIFE CELL AFIA 02/16/2011 [id number] / / [id number] Mesh 10 X 14 [id number] - [id number] Implanted:Qty : 1 on 02/02/2011 at [facility] [place] N/A: Abdomen [employer] AFIA 01/03/2015 [id number] / / [id number] Pelvic Coil 2 Implanted:Qty : 5 on 02/04/2011 at [facility] Left: Pelvis Rexter / / [id number] Description:figure 8 documented as of this encounter Visit Diagnoses Diagnosis Chronic kidney disease, unspecified CKD stage Type 2 diabetes mellitus with hemoglobin A1c goal of less than 8.0% (HCC) On buttermaker drug therapy Vitamin D deficiency Unspecified vitamin D deficiency documented in this encounter Advance Directives Documents on File Type Date Recorded Patient Property And Supply Officer Expl anation Advance Directives and Livin g Will 09/29/2017 LIVING WILL Power of Roller Helper 09/29/2017 POWER OF A TTORNEY Latest Code [...] patient have Health Care Power of Roller Helper? No Full Code 01/18/2010 8:53 PM 01/30/2010 6:41 PM This o rder reflects the patients wishes and were consensually agreed upon. Question Answer Comments Discussion of Advance Directives occurred with: Patient Does the patient have a Living Will? No Does the patient have Health Care Power of Roller Helper? No Full Code 11/18/2009 11:54 AM 11/19/2009 4:09 PM This o rder reflects the patients wishes and were consensually agreed upon. Question Answer Comments Discussion of Advance Directives occurred with: Patient Does the patient have a Living Will? No Does the patient have Health Care Power of Roller Helper? No Full Code 11/13/2009 8:29 AM 11/14/2009 5:08 PM This order reflects the patients wishes and were consensually agreed upon. Care Teams Journeyman Power Plant Operator Relationship Specialty Start Date End Date Madhuri Galicia, [address] [place] [phone] PCP - General Internal Medicine 02/16/17 documented as of this encounter
--- OUTSIDE RECORDS SUMMARY | 2023-07-12 11:08 | External Medical Summary ---
Author Name Unknown Address Unknown Organization K01[place] [facility] [place] [address] [facility] [address] Laboratory Report Ordering Provider Test Date Status APRIL CARRANZA 01/26/2023 12:23:58 Final Observation Date Value Abnormality Reference (Units ) Status HbA1C 01/26/2023 12:23:58 6.9 Above high normal 4. 0-5.6 (%) Final The use of HbA1c to monitor glycemic status is based on normal hemoglobin and HbA composition. This test should not be used in patients with abnormal hemoglobin that affects the half life of the red blood cell or the in vivo glycation rates. Glucose, estimated average 01/26/2023 12:23:58 151 Above high normal <126 (mg/dL) Ilya meza Performing Location [facility] [facility] [place] [address] [facility] [address]
--- NOTE | 2023-07-12 11:36 | Emergency Department Note ---
History of Present Illness General Chief complaint: Lower Extremity Injury/Pain Stated complaint: leg pain Time Seen by Provider: 07/12/23 11:15 History of Present Illness Maximum Pain Intensity: 10 Home Medications Medication Instructions Recorded Confirmed Type allopurinol 100 mg tablet 100 mg PO DAILY 04/20/19 06/09/23 History cholecalciferol (vitamin D3) 50 2,000 units PO DAILY 04/20/19 06/09/23 History mcg (2,000 unit) tablet colestipol 1 gram tablet 1 gm PO BID 04/20/19 06/09/23 History metoprolol tartrate 25 mg tablet 25 mg PO BID #180 tabs 04/20/19 06/09/23 History triamcinolone acetonide 0.1 % 1 appln topical BID PRN Skin 04/20/19 06/09/23 History topical cream Irritation aspirin 81 mg tablet,delayed 81 mg PO DAILY 05/07/20 06/09/23 History release ferrous sulfate 325 mg (65 mg 325 mg PO DAILY 05/07/20 06/09/23 History iron) tablet metformin 500 mg tablet,extended 500 mg PO BID 05/07/20 06/09/23 History release 24 hr pantoprazole 20 mg tablet,delayed 20 mg PO DAILY 05/07/20 06/09/23 History release dulaglutide 1.5 mg/0.5 mL 1.5 mg subcut WK 04/24/21 06/09/23 History subcutaneous pen injector (Trulicity) apixaban 5 mg tablet (Eliquis) 5 mg PO BID 01/23/22 06/09/23 History omega 4-bpr-hec-fish oil 1,000 mg 4 cap PO DAILY 06/19/22 06/09/23 History (120 mg-180 mg) capsule (Fish Oil) olmesartan 5 mg tablet (Benicar) 10 mg PO DAILY 10/01/22 06/09/23 History alendronate 70 mg tablet 70 mg PO .once weekly 05/05/23 06/09/23 History Allergies Allergy/AdvReac Type Severity Reaction Status Date / Time No Known Allergies Allergy Verified 06/09/23 12:56 Past Med/Surg History Medical History Urinary tract infection CKD (chronic kidney disease), stage III Aortic stenosis HTN (hypertension) Presence of IVC filter History of pulmonary embolism History of DVT (deep vein thrombosis) Hyperlipidemia Gout DM type 2 (diabetes mellitus, type 2) Surgical History History of femoropopliteal bypass S/P VAN (total abdominal hysterectomy) History of cataract surgery S/P repair of paraesophageal hernia History of incisional hernia repair S/P AAA repair Family History Mother Hypertension Social History Smoking Status: Never smoker Hx Alcohol Use: No Hx Substance Use: No Preferred Language: Greek Communication Ability: Effective Visual Impairment: Limited Hearing Ability: Use of Hearing Aid Filtration 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 Feels Safe at Home: Yes Diet: regular caffeine: Yes Assistive Devices: Walker Physical Exam Vital Signs Vital Signs - 24 hr 07/12/23 11:11 Temperature 36.6 C Temperature Source Oral Pulse Rate 84 Respiratory Rate 20 Respiratory Effort / Characteristics Non-Labored Spontaneous Respiratory Depth Normal Blood Pressure 176/100 H Blood Pressure Mean 125 Pulse Oximetry 98 Oxygen Delivery Method Room Air Sepsis Recent Fever Within 48 Hours No Sepsis New/Unexplained Change in Mental Status N/A Sepsis Action Taken by Nursing No Action Required Discharge Plan Visit Data Chief Complaint: Lower Extremity Injury/Pain Stated Complaint: leg pain ED Provider: Nilson Gonzales ED Midlevel Provider: Lu Espinoza Forms Stand Alone Forms: My [facility] [employer] Prescriptions Prescriptions: No Action omega 2-wil-rsz-fish oil [Fish Oil] 1,000 mg (120 mg-180 mg) capsule 4 cap PO DAILY alendronate 70 mg tablet 70 mg PO .once weekly cholecalciferol (vitamin D3) 2,000 unit tablet 2,000 units PO DAILY metoprolol tartrate 25 mg tablet 25 mg PO BID Qty: 180 allopurinol 100 mg tablet 100 mg PO DAILY colestipol 1 gram tablet 1 gm PO BID triamcinolone acetonide 0.1 % cream 1 appln topical BID PRN (Reason: Skin Irritation) Trulicity 1.5 mg/0.5 mL pen injector 1.5 mg subcut WK Rx Instructions: TAKES SUN Eliquis 5 mg tablet 5 mg PO BID aspirin 81 mg Tablet,Delayed Release (Dr/Ec) 81 mg PO DAILY pantoprazole 20 mg Tablet,Delayed Release (Dr/Ec) 20 mg PO DAILY ferrous sulfate 325 mg (65 mg iron) Tablet 325 mg PO DAILY metformin 500 mg Tablet Extended Release 24 Hr 500 mg PO BID olmesartan [Benicar] 5 mg Tablet 10 mg PO DAILY Referrals Referrals: Madhuri Galicia DO [Primary Care Provider] -
[2023-07-12] MEDS ORDERED: MoRPHine SULFATE 2 MG/ML CARP IV STA (11:59)
--- NOTE | 2023-07-12 12:17 | XRay Report ---
XR pelvis 1-2V routine, XR femur RT 2V routine CLINICAL HISTORY: pain TECHNIQUE: A single frontal view of the pelvis was obtained. 2 views of the right femur were obtained . Comparison: None available at the time of this dictation. FINDINGS: There is no evidence of an acute fracture. Degenerative changes are seen in the hip joints and lumbar spine. Vascular calcifications are noted. IMPRESSION: No evidence of acute osseous injury. ACT 112: Negative or not required by law. Electronically signed by: Hipolito Jimenez M.D. 07/12/2023 12:28 PM
[2023-07-12 12:37] LABS: Basophils # (auto) 0.05 K/uL (0.00-0.20); Basophils % (auto) 0.3 %; Hematocrit (blood only) 26.1 % (37.0-47.0); Hemoglobin 8.6 g/dl (12.0-16.0); Immature Granulocytes # (auto) 0.23 K/uL (0.01-0.20); Immature Granulocytes % (auto) 1.6 %; Lymphocytes # (auto) 1.08 K/uL (1.20-3.40); Lymphocytes % (auto) 7.4 %; Mean Corpuscular Hemoglobin 32.2 pg (25.0-34.0); Mean Corpuscular Volume 97.8 fL (80.0-100.0); Mean Platelet Volume 11.7 fL (9.4-12.4); Monocytes % (auto) 6.9 %; Neutrophils # (auto) 12.23 K/uL (1.40-6.50); Neutrophils % (auto) 83.8 %; Nucleated RBC # (auto) 0.06 K/uL (0.00-0.12); Nucleated RBC % (auto) 0.4 %; Platelet Count 229 K/uL (130-400); Red Blood Count 2.67 M/uL (4.20-5.40); White Blood Count 14.59 K/ul (4.8-10.8)
[2023-07-12 12:50] LABS: BUN Creatinine Ratio 35.5 (10-20); Creatinine Clr Calc Pharmacy 27.7 ml/min; Est GFR (African American) 33.1 ml/min; Est GFR (Non-African American) 28.6 ml/min; Potassium 4.5 mmol/L (3.5-5.1)
[2023-07-12 13:01] LABS: Partial Thromboplastin Ratio 0.9; Partial Thromboplastin Time 25 Seconds (21-31); Prothrombin Time 10.8 Seconds (9.0-12.0)
--- NOTE | 2023-07-12 14:07 | CT Scan Report ---
RIGHT FEMUR/THIGH CT WITHOUT CONTRAST CLINICAL HISTORY: Hematoma vs abscess. COMPARISON STUDY: Right femur radiographs performed earlier today. TECHNIQUE: Axial images of the right femur were obtained without IV contrast. Sagittal and coronal re constructions were viewed. Automated exposure control was utilized for the study. A dose lowering te chnique was utilized adhering to the principles of ALARA. FINDINGS: No fracture within the right femur is present. No acute fracture within the visualized port ions of the pelvis are identified. There is no pelvic lymphadenopathy. No pelvic fluid collections ar e present. There is sigmoid diverticulosis without evidence for acute diverticulitis. Symphysis pubis is intact. No suspicious osseous lesions within the right femur are noted. There is moderate vascula r calcification within the right common femoral and superficial femoral veins. Subcutaneous edema of the right thigh is noted with skin thickening. Note is made of 2 adjacent large hyperdense subcutaneo us collections within the distal medial right thigh. The larger more superior collection measures 10. 6 x 8.8 x 4.6 cm. The adjacent collection measures 7.6 x 7.5 x 4.4 cm. Several fluid-fluid levels wit h hematocrit effect are noted within these collections. IMPRESSION: 1. Two large adjacent hyperdense subcutaneous fluid collections of the distal medial right thigh cons istent with hematomas. The largest hematoma measures 10.6 x 8.8 x 4.6 cm. 2. Moderate right thigh subcutaneous edema. A portion of this fluid likely reflects associated hemorr bri. 3. No fractures within the right femur. ACT 112: Negative or not required by law. Electronically signed by: Kevin Castillo M.D. 07/12/2023 2:05 PM
--- NOTE | 2023-07-12 16:29 | History & Physical Report ---
Date of Service July 12, 2023 Assessment & Plan (1) Leg pain: Plan: Severe right leg pain 2/2 large area of ecchymosis with associated hematomas in her upper thigh area. No evidence of compartment syndrome. ER physician notified orthopedics who will see her in the morning. Stop Lovenox and Aspirin at this time. Recommend followup with Hematology as outpatient. Aggressive pain control with narcotics is required. (2) Hematoma: Plan: plan as above. Cont supportive care and hold ASA and lovenox. (3) Acute kidney injury superimposed on chronic kidney disease: Plan: chronic, baseline creatinine around 1.2-1.4. Now 1.72. This may be related to poor PO intake 2/2 unable to ambulate, etc. Will gently hydrate with NSS overnight and repeat BMP in am. Hold home ARB therapy. (4) Anemia: Plan: acute blood loss anemia? 2/2 hematomas. Trend CBC in the morning. Transfuse if Hb <7. (5) CKD (chronic kidney disease), stage III: Plan: chronic, baseline creatinine around 1.2-1.4. Now 1.72. This may be related to poor PO intake 2/2 unable to ambulate, etc. Will gently hydrate with NSS overnight and repeat BMP in am. Hold home ARB therapy. 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 No h/o hypercoagulable state after workup historically. IVC filter in place in 2007 and still present. Defer continued management to lehr cutter. (7) HTN (hypertension): Plan: chronic, elevated 2/2 uncontrolled pain. Cont aggressive pain control and if not improved despite good pain control, cont alternative to her home ARB therapy given the acute renal failure. (8) Diabetic peripheral neuropathy associated with type 2 diabetes mellitus: Plan: chronic, controlled per outpatient records A1C 6.9 in January 2023. Hold Trulicity and metformin and use insulin while in the hospital. Repeat A1C in am. (9) History of DVT (deep vein thrombosis): (10) History of pulmonary embolism: Plan: IVC filter in place. DVT prophylaxis: chemoprophylaxis contraindicated in setting of hematoma. MEchanical prophy contraindicated in setting of large hematoma and severe pain with minimal movement. Full Code as discussed with patient on admission. Dispo-to floor. I spent a total [id number] coordinating, documenting, and providing care for this patient excluding time spent in the performance of separately billed services Ragini Luevano DO [facility] Hospitalist History of Present Illness Chief Complaint: leg pain Primary Care Provider: Madhuri Galicia DO 77 yo F presents with acute right leg pain 2/2 multiple hematomas. She has a h/o DVT initially in 2007 with IVC filter placed at that time. She was on coumadin but INR was difficult to control and she was switched to apixaban in 2020?. She developed an extensive DVT in her RLE in May 2023 and was placed on Lovenox injections. Denied any noncompliance with apixaban doses during that time. Sees hematology [facility] (Dr. Nielsen) and history of hypercoagulable workup was negative. Has no known family history of thrombotic complications. Acute right thigh pain started Sat, two days ago, in upper right thigh area along the inside part of right thigh. No alleviating factors and she was in bed for two days-able to transfer independently to bedside commode with her pain getting worse. She has been taking her Lovenox for the past month and states that her pharmacist was reducing her dose from 60mg BID to now 40mg BID. She injects herself in her abdomen and took her morning dose this morning. She takes baby aspirin but has no h/o stroke or CAD that is known. She denies any other pain or symptoms but reports concerns that she has urinary incontinence issues and may not make it to the commode. We discussed the pur wick option. Pain is currently uncontrolled so starting oxycodone PRN and scheduled APAP after discussing this with her. We discussed common side effects of narcotics including drowsiness and bowel slowing, and that we would also start Colace prophylactically. She did have an IVC filter placed in 2007 and states this was never removed to her knowledge. Allergies Allergy/AdvReac Type Severity Reaction Status Date / Time No Known Allergies Allergy Verified 06/09/23 12:56 Home Medications Medication Instructions Recorded Confirmed Type allopurinol 100 mg tablet 100 mg PO DAILY 04/20/19 07/12/23 History cholecalciferol (vitamin D3) 50 2,000 units PO DAILY 04/20/19 07/12/23 History mcg (2,000 unit) tablet colestipol 1 gram tablet 1 gm PO BID 04/20/19 07/12/23 History metoprolol tartrate 25 mg tablet 25 mg PO BID #180 tabs 04/20/19 07/12/23 History triamcinolone acetonide 0.1 % 1 appln topical BID PRN Skin 04/20/19 07/12/23 History topical cream Irritation aspirin 81 mg tablet,delayed 81 mg PO DAILY 05/07/20 07/12/23 History release ferrous sulfate 325 mg (65 mg 325 mg PO DAILY 05/07/20 07/12/23 History iron) tablet metformin 500 mg tablet,extended 500 mg PO BID 05/07/20 07/12/23 History release 24 hr pantoprazole 20 mg tablet,delayed 20 mg PO DAILY 05/07/20 07/12/23 History release dulaglutide 1.5 mg/0.5 mL 1.5 mg subcut WE@0900 04/24/21 07/12/23 History subcutaneous pen injector (Trulicity) omega 0-vah-ylj-fish oil 1,000 mg 4 cap PO DAILY 06/19/22 07/12/23 History (120 mg-180 mg) capsule (Fish Oil) olmesartan 5 mg tablet (Benicar) 10 mg PO DAILY 10/01/22 07/12/23 History alendronate 70 mg tablet 70 mg PO WE@0900 05/05/23 07/12/23 History enoxaparin 60 mg/0.6 mL 40 mg subcut .@8AM,8PM 07/12/23 07/12/23 History subcutaneous syringe Past Med/Surg History Medical History (Updated 07/12/23 @ 17:41 by Ragini Luevano DO) Acute kidney injury superimposed on chronic kidney disease Hiatal hernia Peptic ulcer Postgastric surgery syndrome Endometrial cancer D&C in [place]-1979 Age related osteoporosis Urinary tract infection CKD (chronic kidney disease), stage III Aortic stenosis HTN (hypertension) Presence of IVC filter History of pulmonary embolism History of DVT (deep vein thrombosis) Hyperlipidemia Gout DM type 2 (diabetes mellitus, type 2) Surgical History History of femoropopliteal bypass S/P VAN (total abdominal hysterectomy) History of cataract surgery S/P repair of paraesophageal hernia History of incisional hernia repair S/P AAA repair Family History Mother Hypertension Social History Smoking Status: Never smoker Hx Alcohol Use: No Hx Substance Use: No Preferred Language: Tajik Communication Ability: Effective Visual Impairment: Limited Hearing Ability: Use of Hearing Aid Steel Placer Required: No Beliefs That Will Affect Care: None marital status: Current Living Situation: Spouse current occupational status: retired and disabled How many Children do You have: 1 How many Children do You have Comment: Daughter is local, pt's and daughter able to assist with care as needed. Feels Safe at Home: Yes Diet: regular caffeine: Yes Assistive Devices: Walker Physical Exam Physical Exam: CONSTITUTIONAL: WNWD, vitals as above, generally well-appearing, NAD EYES: PERRL, normal conjunctivae, no scleral icterus ENT: external ear and nose normal, MMM NECK: trachea midline RESPIRATORY: clear to auscultation bilaterally, no crackles, rales or wheezes, normal respiratory effort CARDIOVASCULAR: regular rate and rhythm, S1 and 2 heard without murmurs, gallops or rubs, no JVD, no peripheral edema CHEST: inspection of chest was normal GASTROINTESTINAL: soft, nontender, ND, no guarding MUSCULOSKELETAL: strength 5/5 throughout, however, there is intense pain with any movement, especially of her legs. No pain in the left leg. Extremities are warm and well perfused. SKIN: warm and dry, there is what appears at first glance to be a mottling of the RLE, however, this matches the left leg where there is no issue and patient reports this is how her skin normally appears. NEUROLOGIC: No facial palsy, no dysarthria. CN 2-12 grossly intact, no sensory deficit, normal cognition, normal speech, no tremor PSYCHIATRIC: alert cooperative and oriented to person, place and time. Euthymic mood, makes good eye contact, language grossly intact, recent and remote memory grossly intact. Results & Data Results & Data Vital Signs (Past 12 Hours) Vital Signs Temp Pulse Resp BP Pulse Ox O2 Del Method 07/12/23 15:00 78 26 H 164/102 H 100 07/12/23 14:00 76 37 H 99 07/12/23 11:30 96 Room Air 07/12/23 11:11 36.6 C 84 20 176/100 H 98 Room Air 07/12/23 11:06 87 27 H 170/111 H 93 Laboratory Results Short CBC 07/12/23 Range/Units 12:15 WBC 14.59 H (4.8-10.8) K/ul Hgb 8.6 L (12.0-16.0) g/dl Hct 26.1 L (37.0-47.0) % Plt Count 229 (130-400) K/uL BMP 07/12/23 12:15 Sodium 140 Potassium 4.5 Chloride 110 H Carbon Dioxide 21 BUN 61 H Creatinine 1.72 H Glucose 157 H Calcium 9.0 Diagnostic Findings Femur X-Ray 07/12/23 11:30 XR pelvis 1-2V routine, XR femur RT 2V routine CLINICAL HISTORY: pain TECHNIQUE: A single frontal view of the pelvis was obtained. 2 views of the right femur were obtained. Comparison: None available at the time of this dictation. FINDINGS: There is no evidence of an acute fracture. Degenerative changes are seen in the hip joints and lumbar spine. Vascular calcifications are noted. IMPRESSION: No evidence of acute osseous injury. ACT 112: Negative or not required by law. Electronically signed by: Hipolito Jimenez M.D. 07/12/2023 12:28 PM Pelvis X-Ray 07/12/23 11:30 XR pelvis 1-2V routine, XR femur RT 2V routine CLINICAL HISTORY: pain TECHNIQUE: A single frontal view of the pelvis was obtained. 2 views of the right femur were obtained. Comparison: None available at the time of this dictation. FINDINGS: There is no evidence of an acute fracture. Degenerative changes are seen in the hip joints and lumbar spine. Vascular calcifications are noted. IMPRESSION: No evidence of acute osseous injury. ACT 112: Negative or not required by law. Electronically signed by: Hipolito Jimenez M.D. 07/12/2023 12:[address] 07/12/23 13:12 RIGHT FEMUR/THIGH CT WITHOUT CONTRAST CLINICAL HISTORY: Hematoma vs abscess. COMPARISON STUDY: Right femur radiographs performed earlier today. TECHNIQUE: Axial images of the right femur were obtained without IV contrast. Sagittal and coronal reconstructions were viewed. Automated exposure control was utilized for the study. A dose lowering technique was utilized adhering to the principles of ALARA. FINDINGS: No fracture within the right femur is present. No acute fracture within the visualized portions of the pelvis are identified. There is no pelvic lymphadenopathy. No pelvic fluid collections are present. There is sigmoid diverticulosis without evidence for acute diverticulitis. Symphysis pubis is intact. No suspicious osseous lesions within the right femur are noted. There is moderate vascular calcification within the right common femoral and superficial femoral veins. Subcutaneous edema of the right thigh is noted with skin thickening. Note is made of 2 adjacent large hyperdense subcutaneous collections within the distal medial right thigh. The larger more superior collection measures 10.6 x 8.8 x 4.6 cm. The adjacent collection measures 7.6 x 7.5 x 4.4 cm. Several fluid-fluid levels with hematocrit effect are noted within these collections. IMPRESSION: 1. Two large adjacent hyperdense subcutaneous fluid collections of the distal medial right thigh consistent with hematomas. The largest hematoma measures 10.6 x 8.8 x 4.6 cm. 2. Moderate right thigh subcutaneous edema. A portion of this fluid likely reflects associated hemorrhage. 3. No fractures within the right femur. ACT 112: Negative or not required by law. Electronically signed by: Kevin Castillo M.D. 07/12/2023 2:05 PM Code Status & VTE Plan VTE Prophylaxis Plan VTE Prophylaxis will be ordered: Yes (1) Leg pain Laterality: right Qualified Code(s): M79.604 - Pain in right leg (4) Anemia Anemia type: unspecified type Qualified Code(s): D64.9 - Anemia, unspecified
--- NOTE | 2023-07-12 17:01 | Emergency Department Note ---
History of Present Illness General Chief complaint: Lower Extremity Injury/Pain Stated complaint: leg pain Time Seen by Provider: 07/12/23 11:15 History of Present Illness Provider complaint: Right leg pain Onset (ago): week(s) 2 Location: lower extremity and right Radiation: non-radiation Severity: moderate Pain Consistency: + constant Maximum Pain Intensity: 5 Current Pain Intensity: 5 Quality: + aching, + dull and + constant Relieved By: + none Exacerbated By: + none Associated symptoms: no chest pain or no shortness of breath 77-year-old female presents emergency department for right lower extremity pain. Patient reports pain began 2 weeks ago when she was started on Lovenox for DVT. Patient states she has history of DVTs and was switched to Lovenox from Eliquis because she got a DVT while on Eliquis. She reports pain in her right lower extremity and swelling. She reports no recent falls or traumas. She reports no chest pain or difficulty breathing. Home Medications Medication Instructions Recorded Confirmed Type allopurinol 100 mg tablet 100 mg PO DAILY 04/20/19 07/12/23 History cholecalciferol (vitamin D3) 50 2,000 units PO DAILY 04/20/19 07/12/23 History mcg (2,000 unit) tablet colestipol 1 gram tablet 1 gm PO BID 04/20/19 07/12/23 History metoprolol tartrate 25 mg tablet 25 mg PO BID #180 tabs 04/20/19 07/12/23 History triamcinolone acetonide 0.1 % 1 appln topical BID PRN Skin 04/20/19 07/12/23 History topical cream Irritation aspirin 81 mg tablet,delayed 81 mg PO DAILY 05/07/20 07/12/23 History release ferrous sulfate 325 mg (65 mg 325 mg PO DAILY 05/07/20 07/12/23 History iron) tablet metformin 500 mg tablet,extended 500 mg PO BID 05/07/20 07/12/23 History release 24 hr pantoprazole 20 mg tablet,delayed 20 mg PO DAILY 05/07/20 07/12/23 History release dulaglutide 1.5 mg/0.5 mL 1.5 mg subcut WK 04/24/21 07/12/23 History subcutaneous pen injector ([facility]) omega 7-qky-jts-fish oil 1,000 mg 4 cap PO DAILY 06/19/22 07/12/23 History (120 mg-180 mg) capsule (Fish Oil) olmesartan 5 mg tablet (Benicar) 10 mg PO DAILY 10/01/22 07/12/23 History alendronate 70 mg tablet 70 mg PO .once weekly 05/05/23 07/12/23 History enoxaparin 60 mg/0.6 mL 50 mg subcut .@8AM,8PM 07/12/23 07/12/23 History subcutaneous syringe Allergies Allergy/AdvReac Type Severity Reaction Status Date / Time No Known Allergies Allergy Verified 06/09/23 12:56 Past Med/Surg History Medical History Hiatal hernia Peptic ulcer Postgastric surgery syndrome Endometrial cancer D&C in -1979 Age related osteoporosis Urinary tract infection CKD (chronic kidney disease), stage III Aortic stenosis HTN (hypertension) Presence of IVC filter History of pulmonary embolism History of DVT (deep vein thrombosis) Hyperlipidemia Gout DM type 2 (diabetes mellitus, type 2) Surgical History History of femoropopliteal bypass S/P VAN (total abdominal hysterectomy) History of cataract surgery S/P repair of paraesophageal hernia History of incisional hernia repair S/P AAA repair Family History Mother Hypertension Social History Smoking Status: Never smoker Hx Alcohol Use: No Hx Substance Use: No Preferred Language: Argentine Communication Ability: Effective Visual Impairment: Limited Hearing Ability: Use of Hearing Aid 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 Feels Safe at Home: Yes Diet: regular caffeine: Yes Assistive Devices: Walker Physical Exam Vital Signs Vital Signs - 24 hr 07/12/23 11:06 07/12/23 11:11 07/12/23 11:30 Temperature 36.6 C Temperature Source Oral Pulse Rate 87 84 Pulse Rate from SpO2 Sensor 86 Respiratory Rate 27 H 20 Respiratory Effort / Characteristics Non-Labored Spontaneous Respiratory Depth Normal Blood Pressure 170/111 H 176/100 H Blood Pressure Mean 130 125 Pulse Oximetry 93 98 96 Oxygen Delivery Method Room Air Room Air Sepsis Recent Fever Within 48 Hours No Sepsis New/Unexplained Change in Mental Status N/A Sepsis Action Taken by Nursing No Action Required 07/12/23 14:00 07/12/23 15:00 Temperature Temperature Source Pulse Rate 76 78 Pulse Rate from SpO2 Sensor 76 78 Respiratory Rate 37 H 26 H Respiratory Effort / Characteristics Respiratory Depth Blood Pressure 164/102 H Blood Pressure Mean 122 Pulse Oximetry 99 100 Oxygen Delivery Method Sepsis Recent Fever Within 48 Hours Sepsis New/Unexplained Change in Mental Status Sepsis Action Taken by Nursing Physical Exam CV: Normal rate, regular rhythm, normal heart sounds and intact distal pulses. There is no peripheral edema. Palpable radial pulses bue. PULM/CHEST: Effort normal and breath sounds normal. No respiratory distress. No stridor. She has no wheezes. She has no rales. ABD: The abdomen is soft. MUSC/SKEL: Edema of bilateral lower extremities. Right lower extremity edema is worse than left lower extremity There is ecchymosis over the patient's right inner thigh that is tender to touch no surrounding erythema or warmth. Sensation is intact. Compartments of the lower extremity are soft. VASC: Right lower extremity: Palpable femoral pulse. Signal present for the popliteal DP and PT pulses. Course Course 1115: The patient was evaluated in room C5. A complete history and physical exam was performed Cardiac monitoring: An order was placed for continuous cardiac monitoring. The monitor shows a rate of 80 with sinus rhythm interpreted by me 1310: Vital signs stable. White blood cell count 14.59 hemoglobin 8.6 down from 12.7 in September 2022. Creatinine 1.72. Patient does have a history of CKD. Will obtain CT of the lower extremity without contrast to try and differentiate if these are truly hematomas and make sure there is no component of an abscess in the patient's right lower extremity 1605: Vital signs stable. Imaging shows hematomas in the right thigh that are quite large. Discussed case with on-call orthopedics Dr. Mora off both he and I agree that there is no acute surgical intervention needs to be done as there is no fractures and there are no signs of compartment syndrome. Discussed case with Dr. Luevano who will admit the patient. Administered Medications Discontinued Medications Morphine Sulfate (Morphine Sulfate 2 Mg/Ml Carp) 2 mg IV NOW STA Stop: 07/12/23 12:00 Last Admin: 07/12/23 12:23 Dose: 2 mg Documented By: CORTEZ Medical Decision Making Laboratory Data Attestation: I reviewed the patient's lab results. 07/12/23 12:15 07/12/23 12:15 Lab Results 07/12/23 Range/Units 12:15 WBC 14.59 H (4.8-10.8) K/ul RBC 2.67 L (4.20-5.40) M/uL Hgb 8.6 L (12.0-16.0) g/dl Hct 26.1 L (37.0-47.0) % MCV 97.8 (80.0-100.0) fL MCH 32.2 (25.0-34.0) pg MCHC 33.0 (32.0-36.0) g/dL RDW Std Deviation 53.0 H (36.4-46.3) fL RDW Coeff of [place] 15.0 H (11.5-14.5) % Plt Count 229 (130-400) K/uL MPV 11.7 (9.4-12.4) fL Immature Gran % (Auto) 1.6 % Neut % (Auto) 83.8 % Lymph % (Auto) 7.4 % [place] % (Auto) 6.9 % Eos % (Auto) 0.0 % Baso % (Auto) 0.3 % Neut # (Auto) 12.23 H (1.40-6.50) K/uL Lymph # (Auto) 1.08 L (1.20-3.40) K/uL [place] # (Auto) 1.00 H (0.11-0.59) K/uL Eos # (Auto) 0.00 (0.00-0.50) K/uL Baso # (Auto) 0.05 (0.00-0.20) K/uL Immature Gran # (Auto) 0.23 H (0.01-0.20) K/uL Absolute Nucleated RBC 0.06 (0.00-0.12) K/uL Nucleated RBC % (auto) 0.4 % PT 10.8 (9.0-12.0) Seconds INR 1.0 (0.9-1.1) APTT 25 (21-31) Seconds PTT Ratio 0.9 Sodium 140 (136-145) mmol/L Potassium 4.5 (3.5-5.1) mmol/L Chloride 110 H (98-107) mmol/L Carbon Dioxide 21 (21-32) mmol/L Anion Gap 9 (3-11) BUN 61 H (6-23) mg/dl Creatinine 1.72 H (0.6-1.2) mg/dl Est Cr Clr Drug Dosing 27.7 ml/min Est GFR ( Amer) 33.1 ml/min Est GFR (Non-Af Amer) 28.6 ml/min BUN/Creatinine Ratio 35.5 H (10-20) Glucose 157 H (70-99(Fasting)) mg/dl Calcium 9.0 (8.6-10.3) mg/dl Imaging Data Attestation: I personally reviewed and interpreted this imaging study as follows: My Impression: Femur x-ray: No acute fracture Pelvis x-ray: No acute fracture Radiologist's Impression: Femur X-Ray 07/12/23 11:30 XR pelvis 1-2V routine, XR femur RT 2V routine CLINICAL HISTORY: pain TECHNIQUE: A single frontal view of the pelvis was obtained. 2 views of the right femur were obtained. Comparison: None available at the time of this dictation. FINDINGS: There is no evidence of an acute fracture. Degenerative changes are seen in the hip joints and lumbar spine. Vascular calcifications are noted. IMPRESSION: No evidence of acute osseous injury. ACT 112: Negative or not required by law. Electronically signed by: Hipolito Jimenez M.D. 07/12/2023 12:28 PM Pelvis X-Ray 07/12/23 11:30 XR pelvis 1-2V routine, XR femur RT 2V routine CLINICAL HISTORY: pain TECHNIQUE: A single frontal view of the pelvis was obtained. 2 views of the right femur were obtained. Comparison: None available at the time of this dictation. FINDINGS: There is no evidence of an acute fracture. Degenerative changes are seen in the hip joints and lumbar spine. Vascular calcifications are noted. IMPRESSION: No evidence of acute osseous injury. ACT 112: Negative or not required by law. Electronically signed by: Hipolito Jimenez M.D. 07/12/2023 12:[address] 07/12/23 13:12 RIGHT FEMUR/THIGH CT WITHOUT CONTRAST CLINICAL HISTORY: Hematoma vs abscess. COMPARISON STUDY: Right femur radiographs performed earlier today. TECHNIQUE: Axial images of the right femur were obtained without IV contrast. Sagittal and coronal reconstructions were viewed. Automated exposure control was utilized for the study. A dose lowering technique was utilized adhering to the principles of ALARA. FINDINGS: No fracture within the right femur is present. No acute fracture within the visualized portions of the pelvis are identified. There is no pelvic lymphadenopathy. No pelvic fluid collections are present. There is sigmoid diverticulosis without evidence for acute diverticulitis. Symphysis pubis is intact. No suspicious osseous lesions within the right femur are noted. There is moderate vascular calcification within the right common femoral and superficial femoral veins. Subcutaneous edema of the right thigh is noted with skin thickening. Note is made of 2 adjacent large hyperdense subcutaneous collections within the distal medial right thigh. The larger more superior collection measures 10.6 x 8.8 x 4.6 cm. The adjacent collection measures 7.6 x 7.5 x 4.4 cm. Several fluid-fluid levels with hematocrit effect are noted within these collections. IMPRESSION: 1. Two large adjacent hyperdense subcutaneous fluid collections of the distal medial right thigh consistent with hematomas. The largest hematoma measures 10.6 x 8.8 x 4.6 cm. 2. Moderate right thigh subcutaneous edema. A portion of this fluid likely reflects associated hemorrhage. 3. No fractures within the right femur. ACT 112: Negative or not required by law. Electronically signed by: Kevin Castillo M.D. 07/12/2023 2:05 PM [facility] Narrative 1115: The patient was evaluated in room C5. A complete history and physical exam was performed Cardiac monitoring: An order was placed for continuous cardiac monitoring. The monitor shows a rate of 80 with sinus rhythm interpreted by ks 1310: Vital signs stable. White blood cell count 14.59 hemoglobin 8.6 down from 12.7 in September 2022. Creatinine 1.72. Patient does have a history of CKD. Will obtain CT of the lower extremity without contrast to try and differentiate if these are truly hematomas and make sure there is no component of an abscess in the patient's right lower extremity 1605: Vital signs stable. Imaging shows hematomas in the right thigh that are quite large. Discussed case with on-call orthopedics Dr. Mora off both he and I agree that there is no acute surgical intervention needs to be done as there is no fractures and there are no signs of compartment syndrome. Discussed case with Dr. Luevano who will admit the patient. Impression & Plan Hematoma Discharge Plan Visit Data Chief Complaint: Lower Extremity Injury/Pain Stated Complaint: leg pain ED Provider: Nilson Gonzales Discharge Problem: Hematoma Patient Disposition: Being Evaluated by Hospitalist Forms Stand Alone Forms: My [facility] Prescriptions Prescriptions: No Action omega 2-hki-mgt-fish oil [Fish Oil] 1,000 mg (120 mg-180 mg) capsule 4 cap PO DAILY alendronate 70 mg tablet 70 mg PO .once weekly cholecalciferol (vitamin D3) 2,000 unit tablet 2,000 units PO DAILY metoprolol tartrate 25 mg tablet 25 mg PO BID Qty: 180 allopurinol 100 mg tablet 100 mg PO DAILY colestipol 1 gram tablet 1 gm PO BID triamcinolone acetonide 0.1 % cream 1 appln topical BID PRN (Reason: Skin Irritation) Trulicity 1.5 mg/0.5 mL pen injector 1.5 mg subcut WK Rx Instructions: TAKES SUN aspirin 81 mg Tablet,Delayed Release (Dr/Ec) 81 mg PO DAILY pantoprazole 20 mg Tablet,Delayed Release (Dr/Ec) 20 mg PO DAILY ferrous sulfate 325 mg (65 mg iron) Tablet 325 mg PO DAILY metformin 500 mg Tablet Extended Release 24 Hr 500 mg PO BID enoxaparin 60 mg/0.6 mL syringe 50 mg subcut .@8AM,8PM olmesartan [Benicar] 5 mg Tablet 10 mg PO DAILY Referrals Referrals: Madhuri Galicia DO [Primary Care Provider] -
--- NOTE | 2023-07-12 17:02 | Orthopedic Consultation ---
Date of Consultation July 12, 2023 Assessment & Plan (1) Hematoma: Discussed case and reviewed with Dr. Husain. Patient has findings that are consistent with a hematoma. Imaging revealed no fractures. She has a palpable pulse in the right lower extremity I do not appreciate any concern from c ompartment syndrome. I did discuss with patient it can take time for the hematoma to absorb however there are incidents where it has to be evacuated surgically. We recommend ice x 10 to 20 minutes with a towel layer on and off as needed. Would recommend compression however at this time I do not feel she would be able to tolerate an Ben wrap/Tubigrip will consider in the near future. Elevate the right lower extremity Recommend holding anticoagulation for a minimum of 3 days and until her hemoglobin is stable Recommend ambulating as tolerated with a walker and with assistance Patient would benefit from PT and OT Pain management per primary team Our services will continue to follow while she is inpatient. Present on Admission?: Yes (2) Leg pain: See above (3) History of DVT (deep vein thrombosis): Supervising Physician Co-Signing Physician Notes I saw and examined the patient, reviewed her imaging, related the above plan, and agree with the note. I performed the substantive portion of the visit. Recommend holding her Lovenox for minimum of 3 days. Recommend SCDs for her bilateral lower extremities while she is in bed to decrease her risk of DVT. Order was placed for this this morning. She should also ambulate to decrease risk of DVT. Ice and symptomatic measures as well as compression including an Ben wrap for her hematoma. No surgery is indicated at present. Should her hemoglobin continue to trend down recommend vascular surgery consultation in that case. Follow-up as needed. History of Present Illness Reason for Consultation: Hematoma right lower extremity Requesting Physician: Dr. Gonzales Attending Physician: Dr. Solis Husain History of Present Illness Patient is a 77-year-old female who was seen bedside in the ED in [place] [address]. She is sitting upright in bed eating a ham sandwich. She is alert and oriented x 3. She does not appear to be in any distress. She explains that she started having swelling in her leg that is been ongoing however its become more painful. She states she was in bed the past 2 days because the pain was so bad. She states she does have a history of a DVT in her right lower extremity in 2012 and again in May she was found to have a DVT. She states that she had been on Eliquis for years and more recently she was transition to Lovenox. Per ED note she had previous workup for familial etiology and this was negative. She denies any fall or incident that provoked the swelling or bruising. She states she has tenderness if it is touched and at times if she is trying to move the leg. She states the pain can be as high as 10. She states that she is just resting and laying in there she has very little pain. She denies any numbness in the leg. She also reports she has a history of having a wound VAC in the thigh area years ago but she is unable to remember what this was from. She recalls she was managed by [facility] at that time. She states she typically uses a walker to maneuver around the house. She denies any numbness or tingling in the leg. She does have a history of diabetes and is managed with metformin and Trulicity. She has a history of C. difficile. She denies any history of MRSA. She denies any diarrhea or abdominal pain at this time. She has a history of chronic kidney disease, hypertension history of pulmonary embolism, neuropathy, and gout. Patient denies any dizziness, shortness of breath, chest pain, fever, chills. Allergies Allergy/AdvReac Type Severity Reaction Status Date / Time No Known Allergies Allergy Verified 06/09/23 12:56 Home Medications Medication Instructions Recorded Confirmed Type allopurinol 100 mg tablet 100 mg PO DAILY 04/20/19 07/12/23 History cholecalciferol (vitamin D3) 50 2,000 units PO DAILY 04/20/19 07/12/23 History mcg (2,000 unit) tablet colestipol 1 gram tablet 1 gm PO BID 04/20/19 07/12/23 History metoprolol tartrate 25 mg tablet 25 mg PO BID #180 tabs 04/20/19 07/12/23 History triamcinolone acetonide 0.1 % 1 appln topical BID PRN Skin 04/20/19 07/12/23 History topical cream Irritation aspirin 81 mg tablet,delayed 81 mg PO DAILY 05/07/20 07/12/23 History release ferrous sulfate 325 mg (65 mg 325 mg PO DAILY 05/07/20 07/12/23 History iron) tablet metformin 500 mg tablet,extended 500 mg PO BID 05/07/20 07/12/23 History release 24 hr pantoprazole 20 mg tablet,delayed 20 mg PO DAILY 05/07/20 07/12/23 History release dulaglutide 1.5 mg/0.5 mL 1.5 mg subcut WE@0900 04/24/21 07/12/23 History subcutaneous pen injector (Trulicity) omega 1-prd-yqb-fish oil 1,000 mg 4 cap PO DAILY 06/19/22 07/12/23 History (120 mg-180 mg) capsule (Fish Oil) olmesartan 5 mg tablet (Benicar) 10 mg PO DAILY 10/01/22 07/12/23 History alendronate 70 mg tablet 70 mg PO WE@0900 05/05/23 07/12/23 History enoxaparin 60 mg/0.6 mL 40 mg subcut .@8AM,8PM 07/12/23 07/12/23 History subcutaneous syringe Patient History Medical History (Updated 07/12/23 @ 17:41 by Ragini Luevano DO) Acute kidney injury superimposed on chronic kidney disease Hiatal hernia Peptic ulcer Postgastric surgery syndrome Endometrial cancer D&C in -1979 Age related osteoporosis Urinary tract infection CKD (chronic kidney disease), stage III Aortic stenosis HTN (hypertension) Presence of IVC filter History of pulmonary embolism History of DVT (deep vein thrombosis) Hyperlipidemia Gout DM type 2 (diabetes mellitus, type 2) Surgical History History of femoropopliteal bypass S/P VAN (total abdominal hysterectomy) History of cataract surgery S/P repair of paraesophageal hernia History of incisional hernia repair S/P AAA repair Family History Mother Hypertension Social History Smoking Status: Never smoker Second Hand Exposure: No; Do You Dip or Chew Tobacco: No; Tobacco Cessation Education Requested by Patient: No Hx Alcohol Use: No Hx Substance Use: No Preferred Language: Kiswahili Communication Ability: Effective Visual Impairment: Limited Hearing Ability: Use of Hearing Aid Hall Worker Required: No Beliefs That Will Affect Care: None marital status: Current Living Situation: Spouse current occupational status: retired and disabled How many Children do You have: 1 How many Children do You have Comment: Daughter is local, pt's and daughter able to assist with care as needed. Other Information That Helps Us Care for You: No Feels Safe at Home: Yes Safety Concerns: Feels Safe At This Time Diet: regular caffeine: Yes Assistive Devices: Denture - Upper, Glasses, Hearing Aid - Bilateral and Walker Review of Systems Constitutional: as per Subjective / HPI Physical Exam Physical Exam: General:. Patient is alert and oriented x 3 no acute distress pleasant and conversive. Does not appear to be in pain Integumentary: Right lower extremity has nonpitting edema and soft tissue swelling in the thigh. There is ecchymosis over the medial thigh from the groin to the knee and in the posterior thigh. There is an obvious swelling that is consistent with the finding of a hematoma in the medial aspect of the right thigh. Appears more indurated distally than proximally. It is very tender to touch. Negative for any abrasions or open areas. There is a scar on the inner thigh more proximally of the right lower extremity and over the right ankle. Negative for erythema of the lower extremity. Musculoskeletal: Patient is able to assist with range of motion of the right lower extremity. She does report pain with knee flexion and extension. Her hip range of motion is limited due to pain in the medial thigh. She is able to wiggle toes and ankle range of motion is limited due to history of effusion. Her sensation is intact subjectively over the right lower extremity. She has a palpable dorsal pedis pulse 1+ Results & Data Vital Signs (Past 12 Hours) Vital Signs Temp Pulse Resp BP Pulse Ox O2 Del Method 07/12/23 15:00 78 26 H 164/102 H 100 07/12/23 14:00 76 37 H 99 07/12/23 11:30 96 Room Air 07/12/23 11:11 36.6 C 84 20 176/100 H 98 Room Air 07/12/23 11:06 87 27 H 170/111 H 93 Laboratory Results 07/12/23 Range/Units 12:15 WBC 14.59 H (4.8-10.8) K/ul RBC 2.67 L (4.20-5.40) M/uL Hgb 8.6 L (12.0-16.0) g/dl Hct 26.1 L (37.0-47.0) % MCV 97.8 (80.0-100.0) fL MCH 32.2 (25.0-34.0) pg MCHC 33.0 (32.0-36.0) g/dL RDW Std Deviation 53.0 H (36.4-46.3) fL RDW Coeff of Beka 15.0 H (11.5-14.5) % Plt Count 229 (130-400) K/uL MPV 11.7 (9.4-12.4) fL Immature Gran % (Auto) 1.6 % Neut % (Auto) 83.8 % Lymph % (Auto) 7.4 % Bacon % (Auto) 6.9 % Eos % (Auto) 0.0 % Baso % (Auto) 0.3 % Neut # (Auto) 12.23 H (1.40-6.50) K/uL Lymph # (Auto) 1.08 L (1.20-3.40) K/uL Bacon # (Auto) 1.00 H (0.11-0.59) K/uL Eos # (Auto) 0.00 (0.00-0.50) K/uL Baso # (Auto) 0.05 (0.00-0.20) K/uL Immature Gran # (Auto) 0.23 H (0.01-0.20) K/uL Absolute Nucleated RBC 0.06 (0.00-0.12) K/uL Nucleated RBC % (auto) 0.4 % PT 10.8 (9.0-12.0) Seconds INR 1.0 (0.9-1.1) APTT 25 (21-31) Seconds PTT Ratio 0.9 Sodium 140 (136-145) mmol/L Potassium 4.5 (3.5-5.1) mmol/L Chloride 110 H (98-107) mmol/L Carbon Dioxide 21 (21-32) mmol/L Anion Gap 9 (3-11) BUN 61 H (6-23) mg/dl Creatinine 1.72 H (0.6-1.2) mg/dl Est Cr Clr Drug Dosing 27.7 ml/min Est GFR ( Amer) 33.1 ml/min Est GFR (Non-Af Amer) 28.6 ml/min BUN/Creatinine Ratio 35.5 H (10-20) Glucose 157 H (70-99(Fasting)) mg/dl Calcium 9.0 (8.6-10.3) mg/dl Diagnostic Findings Femur X-Ray 07/12/23 11:30 XR pelvis 1-2V routine, XR femur RT 2V routine CLINICAL HISTORY: pain TECHNIQUE: A single frontal view of the pelvis was obtained. 2 views of the right femur were obtained. Comparison: None available at the time of this dictation. FINDINGS: There is no evidence of an acute fracture. Degenerative changes are seen in the hip joints and lumbar spine. Vascular calcifications are noted. IMPRESSION: No evidence of acute osseous injury. ACT 112: Negative or not required by law. Electronically signed by: Hipolito Jimenez M.D. 07/12/2023 12:28 PM Pelvis X-Ray 07/12/23 11:30 XR pelvis 1-2V routine, XR femur RT 2V routine CLINICAL HISTORY: pain TECHNIQUE: A single frontal view of the pelvis was obtained. 2 views of the right femur were obtained. Comparison: None available at the time of this dictation. FINDINGS: There is no evidence of an acute fracture. Degenerative changes are seen in the hip joints and lumbar spine. Vascular calcifications are noted. IMPRESSION: No evidence of acute osseous injury. ACT 112: Negative or not required by law. Electronically signed by: Hipolito Jimenez M.D. 07/12/2023 12:[address] 07/12/23 13:12 RIGHT FEMUR/THIGH CT WITHOUT CONTRAST CLINICAL HISTORY: Hematoma vs abscess. COMPARISON STUDY: Right femur radiographs performed earlier today. TECHNIQUE: Axial images of the right femur were obtained without IV contrast. Sagittal and coronal reconstructions were viewed. Automated exposure control was utilized for the study. A dose lowering technique was utilized adhering to the principles of ALARA. FINDINGS: No fracture within the right femur is present. No acute fracture within the visualized portions of the pelvis are identified. There is no pelvic lymphadenopathy. No pelvic fluid collections are present. There is sigmoid diverticulosis without evidence for acute diverticulitis. Symphysis pubis is intact. No suspicious osseous lesions within the right femur are noted. There is moderate vascular calcification within the right common femoral and superficial femoral veins. Subcutaneous edema of the right thigh is noted with skin thickening. Note is made of 2 adjacent large hyperdense subcutaneous collections within the distal medial right thigh. The larger more superior collection measures 10.6 x 8.8 x 4.6 cm. The adjacent collection measures 7.6 x 7.5 x 4.4 cm. Several fluid-fluid levels with hematocrit effect are noted within these col lections. IMPRESSION: 1. Two large adjacent hyperdense subcutaneous fluid collections of the distal medial right thigh consistent with hematomas. The largest hematoma measures 10.6 x 8.8 x 4.6 cm. 2. Moderate right thigh subcutaneous edema. A portion of this fluid likely reflects associated hemorrhage. 3. No fractures within the right femur. ACT 112: Negative or not required by law. Electronically signed by: Kevin Castillo M.D. 07/12/2023 2:05 PM
[2023-07-12] MEDS ORDERED: MoRPHine SULFATE 2 MG/ML CARP IV PRN (17:07)
[2023-07-12] MEDS ORDERED: oxyCODONE HCL IR 5 MG TAB (IMMEDIATE RELEASE) PO STA (17:07)
[2023-07-12] MEDS: ACETAMINOPHEN 500 MG TAB PO SCH (17:28)
[2023-07-12] MEDS ORDERED: SODIUM CHLORIDE 0.45 % 1,000 ML IV SCH (17:45)
[2023-07-12] MEDS ORDERED: DEXTROSE 50% 50 ML SYRINGE IV PRN (18:09)
[2023-07-12] MEDS ORDERED: GLUCAGON FOR INJ 1 MG VIAL SQ PRN (18:09)
[2023-07-12] MEDS ORDERED: GLUCOSE 10 TAB/TUBE PO PRN (18:09)
[2023-07-12] MEDS ORDERED: ACETAMINOPHEN 500 MG TAB PO SCH (18:09)
[2023-07-12] MEDS ORDERED: POLYETHYLENE (MIRALAX) 17 GM PACK PO PRN (18:09)
[2023-07-12] MEDS ORDERED: GLUCOSE 40% GEL 15 GM TUBE PO PRN (18:09)
[2023-07-12] MEDS ORDERED: ONDANSETRON INJ 2 MG/ML 2 ML VIAL IV PRN (18:09)
[2023-07-12] MEDS ORDERED: CARBOHYDRATES FOR HYPOGLYCEMIA PO PRN (18:09)
[2023-07-12] MEDS: COLESTIPOL HCL 1 GM TAB PO SCH (21:19)
[2023-07-12] MEDS: DOCUSATE SODIUM 100 MG CAP PO SCH (21:20)
[2023-07-12] MEDS: METOPROLOL TARTRATE 25 MG TAB PO SCH (21:21)
[2023-07-12] MEDS: oxyCODONE HCL IR 5 MG TAB (IMMEDIATE RELEASE) PO PRN (21:26)
[2023-07-12] MEDS: INSULIN ASPART PER UNIT CHARGE SC SCH (21:27)
[2023-07-12] MEDS: LANTUS PER UNIT CHARGE SQ SCH (21:27)
[2023-07-13] MEDS: ACETAMINOPHEN 500 MG TAB PO SCH ×3 (01:22→17:18)
[2023-07-13 06:17] LABS: Hemoglobin 7.2 g/dl (12.0-16.0); Mean Corpuscular Hemoglobin 31.7 pg (25.0-34.0); Mean Corpuscular Hgb Conc 31.3 g/dL (32.0-36.0); Mean Corpuscular Volume 101.3 fL (80.0-100.0); Mean Platelet Volume 11.2 fL (9.4-12.4); Nucleated RBC # (auto) 0.08 K/uL (0.00-0.12); Nucleated RBC % (auto) 0.7 %; Platelet Count 190 K/uL (130-400); RDW Standard Deviation 54.9 fL (36.4-46.3); Red Blood Count 2.27 M/uL (4.20-5.40); White Blood Count 11.53 K/ul (4.8-10.8)
[2023-07-13 06:55] LABS: Calcium 8.2 mg/dl (8.6-10.3); Potassium 4.3 mmol/L (3.5-5.1)
[2023-07-13 07:01] LABS: BUN Creatinine Ratio 39.3 (10-20); Creatinine Clr Calc Pharmacy 31.7 ml/min; Est GFR (African American) 39.1 ml/min; Est GFR (Non-African American) 33.7 ml/min; Folate (Folic Acid),Ser orPlas 7.77 ng/ml (>5.38)
[2023-07-13 07:14] LABS: Estimated Average Glucose 154 mg/dl
[2023-07-13] MEDS: DOCUSATE SODIUM 100 MG CAP PO SCH ×2 (08:54→21:31)
[2023-07-13] MEDS: PANTOprazole 40 MG TAB PO SCH (08:54)
[2023-07-13] MEDS: METOPROLOL TARTRATE 25 MG TAB PO SCH ×2 (08:54→21:37)
[2023-07-13] MEDS: allopurinoL 100 MG TAB PO SCH (08:54)
[2023-07-13] MEDS: COLESTIPOL HCL 1 GM TAB PO SCH ×2 (08:54→21:31)
[2023-07-13] MEDS: LANTUS PER UNIT CHARGE SQ SCH ×2 (09:00→21:43)
[2023-07-13] MEDS: INSULIN ASPART PER UNIT CHARGE SC SCH ×4 (09:00→21:44)
--- NOTE | 2023-07-13 09:47 | Orthopedic Progress Note ---
Date of Service July 13, 2023 Assessment & Plan (1) Hematoma: Plan: 77-year-old female with right thigh hematoma, improving Continue ice x 10 to 20 minutes with a towel layer on and off as needed Ben wrap was applied today for some compression, patient tolerated Elevate the right lower extremity Recommend holding anticoagulation for a minimum of 3 days (from 07/12/23) and until her hemoglobin is stable Recommend ambulating as tolerated with a walker and with assistance Patient would benefit from PT and OT Pain management per primary team Our services will continue to follow while she is inpatient. Admission and Anticipated Discharge Date Admission Date: July 12, 2023 Subjective Patient seen and examined at bedside. She said that she overall is improving and doing better. She rates her pain a 1 out of 10 currently. She thinks ice packs are helping. She says she thinks the hematoma is getting better. She has not gotten out of bed yet. Review of Systems Review of Systems: She denies any calf pain or any numbness or tingling Physical Exam Physical Exam: Patient is lying in bed. Right lower extremity was examined. Extensive hematoma present on right thigh, mostly medial but does extend behind knee and to proximal aspect of calf. 1+ dorsal pedal pulses present. She does have some lower extremity edema 2+ pitting. She is able to wiggle all of her toes. She has a previous ankle fusion and the range of motion of her ankle is limited. She is able to tolerate raising her leg up. She can slightly bend her knee. She tolerates logroll. I am able to slightly palpate the hematoma. She was able to tolerate some compression with an Ben wrap today. Results & Data Vital Signs (Past 12 Hours) Vital Signs Temp Pulse Resp BP Pulse Ox O2 Del Method 07/13/23 08:02 36.4 C L 56 L 16 126/65 94 Room Air
[2023-07-13 13:23] LABS: Hematocrit (blood only) 23.5 % (37.0-47.0); Hemoglobin 7.5 g/dl (12.0-16.0)
--- NOTE | 2023-07-13 14:00 | Hospitalist Progress Note ---
Date of Service July 13, 2023 Assessment & Plan (1) Leg pain: Plan: Severe right leg pain 2/2 large area of ecchymosis with associated hematomas in her upper thigh area. No evidence of compartment syndrome. ER physician notified orthopedics who will see her in the morning. Stop Lovenox and Aspirin at this time. Recommend followup with Hematology as outpatient. Aggressive pain control with narcotics is required. Right thigh is in crpe bandage now and the pain is improved Denies any numbness or tingling involving the right leg Has been moving the right leg (2) Hematoma: Plan: Spontaneous hematoma on anticoagulation. Plan as above. Cont supportive care and hold ASA and lovenox. Appreciate Ortho input and recommendation No surgery needed Monitor H&H and PT OT evaluation (3) Acute kidney injury superimposed on chronic kidney disease: Plan: Chronic, baseline creatinine around 1.2-1.4. Now 1.72. This may be related to poor PO intake 2/2 unable to ambulate, etc. Will gently hydrate with NSS overnight and repeat BMP in am. Hold home ARB therapy. Creatinine has been improving and it is 1.50 as of 07/13/2023 Advised to drink more fluid (4) Anemia: Plan: Acute blood loss anemia? 2/2 hematomas. Hemoglobin dropped to 7.2 from 8.6 yesterday Repeat hemoglobin at 1 PM showed stability at 7.5 Will not give any blood transfusion for now Monitor CBC (5) CKD (chronic kidney disease), stage III: Plan: chronic, baseline creatinine around 1.2-1.4. Now 1.72. This may be related to poor PO intake 2/2 unable to ambulate, etc. Will gently hydrate with NSS overnight and repeat BMP in am. Hold home ARB therapy. 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 No h/o hypercoagulable state after workup historically. IVC filter in place in 2007 and still present. Defer continued management to trouble tracer. Discussed with the patient about importance of anticoagulation-pros and cons where discussed with the patient Recommended to have anticoagulation to be started by the Ortho after about 72 hours of stability of hemoglobin She is in favor of starting anticoagulation-but definitely we can defer till being seen by the trouble tracer She has an IVC filter placed in 2007 (7) HTN (hypertension): Plan: Chronic, elevated 2/2 uncontrolled pain. Cont aggressive pain control and if not improved despite good pain control, cont alternative to her home ARB therapy given the acute renal failure. Blood pressure remains controlled at 126/65 (8) Diabetic peripheral neuropathy associated with type 2 diabetes mellitus: Plan: Chronic, controlled per outpatient records A1C 6.9 in January 2023. Hold Trulicity and metformin and use insulin while in the hospital. Repeat A1C in am. (9) History of DVT (deep vein thrombosis): (10) History of pulmonary embolism: Plan: IVC filter in place. DVT prophylaxis: chemoprophylaxis contraindicated in setting of hematoma. MEchanical prophy contraindicated in setting of large hematoma and severe pain with minimal movement. Full Code as discussed with patient on admission. Dispo-to floor. Will get PT and OT evaluation Admission and Anticipated Discharge Date Admission Date: July 12, 2023 Subjective 07/13/2023 The patient was seen and examined in medical floor She was admitted with spontaneous hemorrhage in the right thigh with increasing pain on anticoagulation Has been feeling better since admission Denies any chest pain, palpitation or shortness of breath No numbness and or tingling involving the right lower extremity Review of Systems Review of Systems: All systems reviewed and are unremarkable except as noted below Physical Exam Physical Exam: Lying in bed with minimal distress due to pain in the right thigh and leg Constitutional: + ill appearing and average body habitus Eyes: PERRL, conjunctivae normal, anicteric sclerae ENMT: external ear and nose normal, oropharynx normal Neck: trachea midline, no thyromegaly Respiratory: no respiratory distress Auscultation: lungs clear to auscultation bilaterally Cardiovascular: Rate/Rhythm: regular rate and regular rhythm; not tachycardic Heart Sounds: normal S1, normal S2 and + murmur (2/6 ESM over precordium) Extremities: + edema (1+ on the right side) Gastrointestinal (Abdomen): Inspection/Auscultation: normal bowel sounds; abdomen not distended Percussion/Palpation: abdomen soft; abdomen nontender Musculoskeletal: Right lower extremity swollen with right thigh tenderness. Neurologic: normal touch/pain/proprioception and moves all extremities; no focal motor deficits Lymphatic: no cervical or axillary lymphadenopathy Results & Data Results & Data Vital Signs (Past 12 Hours) Vital Signs Temp Pulse Resp BP Pulse Ox O2 Del Method 07/13/23 10:15 Room Air 07/13/23 08:02 36.4 C L 56 L 16 126/65 94 Room Air Laboratory Results Short CBC 07/13/23 07/13/23 Range/Units 05:49 13:08 WBC 11.53 H (4.8-10.8) K/ul Hgb 7.2 L 7.5 L (12.0-16.0) g/dl Hct 23.0 L 23.5 L (37.0-47.0) % Plt Count 190 (130-400) K/uL BMP 07/13/23 05:49 Sodium 136 Potassium 4.3 Chloride 108 H Carbon Dioxide 22 BUN 59 H Creatinine 1.50 H Glucose 81 Calcium 8.2 L Medications Administered Current Inpatient Medications Acetaminophen (Acetaminophen 500 Mg Tab) 1,000 mg PO Q8H ABBIE Stop: 08/11/23 17:14 Last Admin: 07/13/23 11:08 Dose: 1,000 mg Alendronate Sodium (Alendronate Sodium 70 Mg Tab) 70 mg PO WE@0900 ABBIE Stop: 08/13/23 08:59 Allopurinol (Allopurinol 100 Mg Tab) 100 mg PO DAILY ABBIE Stop: 08/12/23 08:59 Last Admin: 07/13/23 08:54 Dose: 100 mg Colestipol HCl (Colestipol Hcl 1 Gm Tab) 1 gm PO BID ABBIE Stop: 08/11/23 20:59 Last Admin: 07/13/23 08:54 Dose: 1 gm Dextrose (Dextrose 50% 50 Ml Syringe) 25 - 50 ml IV UD PRN; Protocol PRN Reason: Hypoglycemia Protocol Stop: 08/11/23 18:08 Docusate Sodium (Docusate Sodium 100 Mg Cap) 100 mg PO BID ABBIE Stop: 08/11/23 20:59 Last Admin: 07/13/23 08:54 Dose: 100 mg Glucagon (Glucagon For Inj 1 Mg Vial) 1 mg SQ UD PRN; Protocol PRN Reason: Hypoglycemia Protocol Stop: 08/11/23 18:08 Glucose (Glucose 10 Tab/Tube) 4 - 8 tab PO UD PRN; Protocol PRN Reason: Hypoglycemia Treatment Stop: 08/11/23 18:08 Glucose (Glucose 40% Gel 15 Gm Tube) 15 - 30 gm PO UD PRN; Protocol PRN Reason: Hypoglycemia Protocol Stop: 08/11/23 18:08 Insulin Aspart (Insulin Aspart Per Unit Charge) 0 units SC ACHS [facility] Stop: 08/11/23 20:59 Last Admin: 07/13/23 12:33 Dose: 6 units Insulin Glargine (Lantus Per Unit Charge) 10 units SQ BID [facility] Stop: 08/11/23 20:59 Last Admin: 07/13/23 09:00 Dose: 10 units Metoprolol Tartrate (Metoprolol Tartrate 25 Mg Tab) 25 mg PO BID [facility] Stop: 08/11/23 20:59 Last Admin: 07/13/23 08:54 Dose: Not Given Miscellaneous (Carbohydrates For Hypoglycemia ) 15 - 30 gm PO UD PRN PRN Reason: Hypoglycemia Protocol Stop: 08/11/23 18:08 Morphine Sulfate (Morphine Sulfate 2 Mg/Ml Carp) 2 mg IV Q6H PRN PRN Reason: Severe Pain (Scale 7, 8, 9,10) Stop: 07/26/23 17:06 Ondansetron HCl (Ondansetron Inj 2 Mg/Ml 2 Ml Vial) 4 mg IV Q6H PRN PRN Reason: Nausea Stop: 08/11/23 18:08 Oxycodone HCl (Oxycodone Hcl Ir 5 Mg Tab (Immediate Release)) 5 mg PO Q6H PRN PRN Reason: Severe Pain (Scale 7, 8, 9,10) Stop: 07/26/23 17:06 Last Admin: 07/12/23 21:26 Dose: 5 mg Pantoprazole Sodium (Pantoprazole 40 Mg Tab) 40 mg PO DAILY [facility] Stop: 08/12/23 08:59 Last Admin: 07/13/23 08:54 Dose: 40 mg Polyethylene Glycol (Polyethylene (Miralax) 17 Gm Pack) 17 gm PO DAILY PRN PRN Reason: Constipation Stop: 08/11/23 18:08 (1) Leg pain Laterality: right Qualified Code(s): M79.604 - Pain in right leg (4) Anemia Anemia type: unspecified type Qualified Code(s): D64.9 - Anemia, unspecified
[2023-07-13] MEDS: oxyCODONE HCL IR 5 MG TAB (IMMEDIATE RELEASE) PO PRN (21:36)
[2023-07-14] MEDS: ACETAMINOPHEN 500 MG TAB PO SCH ×3 (01:29→17:58)
[2023-07-14] MEDS: PANTOprazole 40 MG TAB PO SCH (08:17)
[2023-07-14] MEDS: allopurinoL 100 MG TAB PO SCH (08:17)
[2023-07-14] MEDS: DOCUSATE SODIUM 100 MG CAP PO SCH ×2 (08:18→20:09)
[2023-07-14] MEDS: METOPROLOL TARTRATE 25 MG TAB PO SCH ×2 (08:18→20:09)
[2023-07-14] MEDS: COLESTIPOL HCL 1 GM TAB PO SCH ×2 (08:18→20:09)
[2023-07-14] MEDS ORDERED: PHARMACY GLYCEMIC MGMT CONSULT PRN (08:53)
[2023-07-14] MEDS ORDERED: ALENDRONATE SODIUM 70 MG TAB PO SCH (09:00)
--- NOTE | 2023-07-14 09:06 | Pharmacy Report ---
Pharmacy Glycemic Short Note 2 - Date of Service July 14, 2023 - Glycemic Short BSG Results (Last 24 hours): 07/13/23 07/13/23 07/13/23 11:43 16:16 21:40 POC Glucose 171 H 76 80 07/14/23 07/14/23 07/14/23 07:47 07:49 07:50 POC Glucose 69 L* 67 L* 60 L* 07/14/23 07/14/23 07/14/23 08:10 08:13 08:45 POC Glucose 63 L* 52 L* 59 L* 07/14/23 08:47 POC Glucose 62 L* OUTPATIENT ANTIDIABETIC REGIMEN: * Metformin 500 mg PO BIDM * Trulicity 1.5 mg SC weekly HbA1c: 7% (07/13/23) ASSESSMENT: * AP is a 77 year old female admitted on 07/12/23 w/ severe right leg pain w/ associated hematomas in upper right thigh * Pharmacy consulted for glycemic management morning of 07/14/23 due to prolonged hypoglycemia this morning * Patient received 20 units of basal insulin and 11 units of prandial/correctional bolus, which resulted in very tight BSG control yesterday w/ low this morning * Will discontinue basal insulin altogether and loosen Novolog parameters today. Consider restarting low-dose basal insulin once BSGs trend up. PLAN FOR INPATIENT GLYCEMIC CONTROL: * Hold outpatient oral diabetes medications * Basal insulin - discontinue * hold, reassess need for basal tomorrow morning * Bolus insulin - loosen * NovoLog per scale ACHS or Q6hrs while NPO * Goal Range: Low 120 mg/dL - High 150 mg/dL * Correction Factor: 35 mg/dL/unit * Nutritional / Prandial insulin per carb ratio of 1 unit per 15 grams CHO consumed
[2023-07-14] MEDS: INSULIN ASPART PER UNIT CHARGE SC SCH ×4 (09:47→20:37)
[2023-07-14 09:55] LABS: Basophils # (auto) 0.02 K/uL (0.00-0.20); Basophils % (auto) 0.2 %; Eosinophils # (auto) 0.08 K/uL (0.00-0.50); Eosinophils % (auto) 0.8 %; Hemoglobin 7.5 g/dl (12.0-16.0); Immature Granulocytes # (auto) 0.09 K/uL (0.01-0.20); Immature Granulocytes % (auto) 0.9 %; Lymphocytes # (auto) 0.86 K/uL (1.20-3.40); Lymphocytes % (auto) 8.3 %; Mean Corpuscular Hemoglobin 32.2 pg (25.0-34.0); Mean Corpuscular Hgb Conc 32.6 g/dL (32.0-36.0); Mean Corpuscular Volume 98.7 fL (80.0-100.0); Mean Platelet Volume 11.2 fL (9.4-12.4); Monocytes # (auto) 0.68 K/uL (0.11-0.59); Monocytes % (auto) 6.5 %; Neutrophils # (auto) 8.66 K/uL (1.40-6.50); Neutrophils % (auto) 83.3 %; Nucleated RBC # (auto) 0.05 K/uL (0.00-0.12); Nucleated RBC % (auto) 0.5 %; Platelet Count 207 K/uL (130-400); RDW Coefficient of Variation 15.1 % (11.5-14.5); Red Blood Count 2.33 M/uL (4.20-5.40); White Blood Count 10.39 K/ul (4.8-10.8)
[2023-07-14 10:16] LABS: BUN Creatinine Ratio 39.3 (10-20); Calcium 8.2 mg/dl (8.6-10.3); Est GFR (African American) 50.2 ml/min; Est GFR (Non-African American) 43.3 ml/min; Potassium 4.6 mmol/L (3.5-5.1)
[2023-07-14 10:21] LABS: Polychromasia 1+
--- NOTE | 2023-07-14 10:58 | Hospitalist Progress Note ---
Date of Service July 14, 2023 Assessment & Plan (1) Leg pain: Plan: per previous hospitalist notes with addendum: Severe right leg pain 2/2 large area of ecchymosis with associated hematomas in her upper thigh area. No evidence of compartment syndrome. ER physician notified orthopedics who will see her in the morning. Stop Lovenox and Aspirin at this time. Recommend followup with Hematology as outpatient. Aggressive pain control with narcotics is required. Right thigh is in crpe bandage now and the pain is improved Denies any numbness or tingling involving the right leg Has been moving the right leg 07/14 Continue with as needed pain medication (2) Hematoma: Plan: Spontaneous hematoma on anticoagulation. Plan as above. Cont supportive care and hold ASA and lovenox. Appreciate Ortho input and recommendation No surgery needed Monitor H&H and PT OT evaluation 07/14 Hemoglobin stable at 7.5 No surgical intervention per Ortho at this point Hold Lovenox Repeat hemoglobin tomorrow Will discuss with pattern maker regarding continuation of Lovenox (3) Acute kidney injury superimposed on chronic kidney disease: Plan: Chronic, baseline creatinine around 1.2-1.4. Now 1.72. This may be related to poor PO intake 2/2 unable to ambulate, etc. Will gently hydrate with NSS overnight and repeat BMP in am. Hold home ARB therapy. Creatinine has been improving and it is 1.50 as of 07/13/2023 Advised to drink more fluid Creatinine 1.2 (4) Anemia: Plan: Acute blood loss anemia? 2/2 hematomas. Hemoglobin dropped to 7.2 from 8.6 yesterday Repeat hemoglobin at 1 PM showed stability at 7.5 Will not give any blood transfusion for now Monitor CBC Hemoglobin 7.5 (5) CKD (chronic kidney disease), stage III: Plan: chronic, baseline creatinine around 1.2-1.4. Now 1.72. This may be related to poor PO intake 2/2 unable to ambulate, etc. Will gently hydrate with NSS overnight and repeat BMP in am. Hold home ARB therapy. 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 No h/o hypercoagulable state after workup historically. IVC filter in place in 2007 and still present. Defer continued management to pattern maker. Discussed with the patient about importance of anticoagulation-pros and cons where discussed with the patient Recommended to have anticoagulation to be started by the Ortho after about 72 hours of stability of hemoglobin She is in favor of starting anticoagulation-but definitely we can defer till being seen by the pattern maker She has an IVC filter placed in 2007 We discussed with pattern maker regarding continuation of Lovenox (7) HTN (hypertension): Plan: Chronic, elevated 2/2 uncontrolled pain. Cont aggressive pain control and if not improved despite good pain control, cont alternative to her home ARB therapy given the acute renal failure. Blood pressure remains controlled at 126/65 BP improving (8) Diabetic peripheral neuropathy associated with type 2 diabetes mellitus: Plan: Chronic, controlled per outpatient records A1C 6.9 in January 2023. Hold Trulicity and metformin and use insulin while in the hospital. Repeat A1C in am. A1c 7.0 (9) History of DVT (deep vein thrombosis): (10) History of pulmonary embolism: Plan: IVC filter in place. DVT prophylaxis: chemoprophylaxis contraindicated in setting of hematoma. MEchanical prophy contraindicated in setting of large hematoma and severe pain with minimal movement. Full Code as discussed with patient on admission. Dispo-to floor. Admission and Anticipated Discharge Date Admission Date: July 12, 2023 Subjective Follow-up for spontaneous hematoma right leg, etc. Seen resting in bed, sitting up, not in distress States she feels okay overall except for pain on the right leg, similar to yesterday Mild paresthesias intermittently No weakness no chest pain, dyspnea, palpitations, dizziness No other new symptoms Review of Systems Review of Systems: all noted and negative except for above Physical Exam Physical Exam: General- oriented x 3, not in distress, speaks in sentences with no effort or accessory muscle use Eyes- anicteric Neck- no JVD Lungs- clear breath sounds bilaterally, no rales or wheezing Heart- normal rate, regular rhythm; no murmurs Abdomen- normal bowel sounds, nondistended, soft, nontender Extremities- Right lower extremity: Positive mild edema, diffuse hematoma, no tenderness, no Lower extremity: No pretibial edema, no calf tenderness Neuro- alert, oriented x 3; no gross focal neurologic deficits Skin- warm & dry Results & Data Results & Data Vital Signs (Past 12 Hours) Vital Signs Temp Pulse Resp BP Pulse Ox O2 Del Method 07/14/23 07:32 36.3 C L 62 16 107/60 95 Room Air (1) Leg pain Laterality: right Qualified Code(s): M79.604 - Pain in right leg (4) Anemia Anemia type: unspecified type Qualified Code(s): D64.9 - Anemia, unspecified
[2023-07-15] MEDS: ACETAMINOPHEN 500 MG TAB PO SCH ×3 (00:44→18:06)
[2023-07-15] MEDS: INSULIN ASPART PER UNIT CHARGE SC SCH ×4 (08:32→20:46)
[2023-07-15] MEDS: METOPROLOL TARTRATE 25 MG TAB PO SCH ×2 (08:33→20:01)
[2023-07-15] MEDS: DOCUSATE SODIUM 100 MG CAP PO SCH ×2 (08:33→20:02)
[2023-07-15] MEDS: PANTOprazole 40 MG TAB PO SCH (08:33)
[2023-07-15] MEDS: allopurinoL 100 MG TAB PO SCH (08:33)
[2023-07-15] MEDS: COLESTIPOL HCL 1 GM TAB PO SCH ×2 (08:33→20:02)
--- NOTE | 2023-07-15 08:44 | Orthopedic Progress Note ---
Date of Service July 15, 2023 Assessment & Plan (1) Hematoma: Plan: The patient was educated regarding today's findings. Conservative care measures were discussed. She may leave the Ben wrap in place for compression. She was encouraged to participate in PT and OT today. If she does well, she may be a need for additional [facility]. Continue with the ice pack on the inner thigh as needed for comfort. She will be reassessed tomorrow morning. Hopefully she continues to improve as much in the next 24 hours as she did in the last 24. Admission and Anticipated Discharge Date Admission Date: July 12, 2023 Subjective This 77-year-old female is seen today in her room, for reevaluation of her right upper thigh. She has a known hematoma. She states she is feeling pretty good this morning. She looks better than when seen yesterday. She states her thigh still hurts, but it is much improved. She was able to get out of bed and ambulate in her room yesterday. She is hoping to go to rehab for more strengthening. She denies any numbness or tingling. No shortness of breath. No other complaints. Physical Exam Physical Exam: General: Well-developed, well-nourished, elderly female, in no acute distress. Laying in bed. Alert and oriented. Conversive. She has just finished her breakfast. Skin: Warm and dry with good turgor. No rashes. She does have ecchymosis and e sarath present on the inner aspect of her right thigh. The ecchymosis extends to her knee and into her medial gastroc. The firm area on her upper thigh is much less tender than previous. I am able to palpate with minimal discomfort this morning. Musculoskeletal: Patient has supple motion of her hip for both rotation as well as flexion. She has supple motion of her knee. She is moving noticeably better than yesterday. Strength is 5/5 for resisted flexion and extension of the knee and hip as well as adduction of the hip. Neurologic: Gross sensation is intact across the right leg by soft touch. Peripheral pulses are 2+. Results & Data Vital Signs (Past 12 Hours) Vital Signs O2 Del Method 07/14/23 21:06 Room Air Laboratory Results Glucose this morning is 111.
[2023-07-15 10:20] LABS: Basophils # (auto) 0.04 K/uL (0.00-0.20); Basophils % (auto) 0.4 %; Eosinophils # (auto) 0.09 K/uL (0.00-0.50); Eosinophils % (auto) 0.9 %; Hematocrit (blood only) 24.6 % (37.0-47.0); Hemoglobin 7.6 g/dl (12.0-16.0); Immature Granulocytes # (auto) 0.08 K/uL (0.01-0.20); Immature Granulocytes % (auto) 0.8 %; Lymphocytes % (auto) 7.1 %; Mean Corpuscular Hemoglobin 31.4 pg (25.0-34.0); Mean Corpuscular Hgb Conc 30.9 g/dL (32.0-36.0); Mean Corpuscular Volume 101.7 fL (80.0-100.0); Mean Platelet Volume 10.9 fL (9.4-12.4); Monocytes % (auto) 6.1 %; Neutrophils # (auto) 8.36 K/uL (1.40-6.50); Neutrophils % (auto) 84.7 %; Nucleated RBC # (auto) 0.04 K/uL (0.00-0.12); Nucleated RBC % (auto) 0.4 %; Platelet Count 227 K/uL (130-400); RDW Coefficient of Variation 15.5 % (11.5-14.5); RDW Standard Deviation 55.6 fL (36.4-46.3); Red Blood Count 2.42 M/uL (4.20-5.40); White Blood Count 9.87 K/ul (4.8-10.8)
[2023-07-15 10:36] LABS: BUN Creatinine Ratio 30.5 (10-20); Calcium 8.4 mg/dl (8.6-10.3); Creatinine Clr Calc Pharmacy 33.8 ml/min; Est GFR (African American) 42.1 ml/min; Est GFR (Non-African American) 36.3 ml/min; Potassium 4.7 mmol/L (3.5-5.1)
[2023-07-15 10:49] LABS: Hypochromasia Present; Polychromasia 2+
--- NOTE | 2023-07-15 13:13 | Pharmacy Report ---
Pharmacy Glycemic Short Note 2 - Date of Service July 15, 2023 - Glycemic Short BSG Results (Last 24 hours): 07/14/23 07/14/23 07/15/23 16:42 20:23 07:41 Glucose POC Glucose 73 163 H 111 H 07/15/23 07/15/23 10:00 11:39 Glucose 224 H POC Glucose 166 H OUTPATIENT ANTIDIABETIC REGIMEN: * Metformin 500 mg PO BIDM * Trulicity 1.5 mg SC weekly HbA1c: 7% (07/13/23) ASSESSMENT: 07/15/23: * BSGs labile yesterday, 69, 191, 73, and 163 mg/dL w/ fasting BSG this morning of 111 mg/dL * Received 9 units of bolus insulin only on 07/14/23 * Will maintain loose Novolog today, but consider tightening tomorrow if BSGs begin to trend up 07/14/23: * AP is a 77 year old female admitted on 07/12/23 w/ severe right leg pain w/ associated hematomas in upper right thigh * Pharmacy consulted for glycemic management morning of 07/14/23 due to prolonged hypoglycemia this morning * Patient received 20 units of basal insulin and 11 units of prandial/correctional bolus, which resulted in very tight BSG control yesterday w/ low this morning * Will discontinue basal insulin altogether and loosen Novolog parameters today. Consider restarting low-dose basal insulin once BSGs trend up. PLAN FOR INPATIENT GLYCEMIC CONTROL: * Hold outpatient oral diabetes medications * Basal insulin - hold * Reassess need for basal tomorrow morning * Bolus insulin - loosen * NovoLog per scale ACHS or Q6hrs while NPO * Goal Range: Low 120 mg/dL - High 150 mg/dL * Correction Factor: 35 mg/dL/unit * Nutritional / Prandial insulin per carb ratio of 1 unit per 15 grams CHO consumed
--- NOTE | 2023-07-15 16:26 | Hospitalist Progress Note ---
Date of Service July 15, 2023 Assessment & Plan (1) Leg pain: Plan: Severe right leg pain 2/2 large area of ecchymosis with associated hematomas in her upper thigh area. No evidence of compartment syndrome. ER physician notified orthopedics who will see her in the morning. Stop Lovenox and Aspirin at this time. Recommend follow-up with Hematology as outpatient. Aggressive pain control with narcotics is required. Right thigh is in bo bandage now and the pain is improved Denies any numbness or tingling involving the right leg Has been moving the right leg, planning to continue PT/OT at [facility] (2) Hematoma: Plan: Spontaneous hematoma on anticoagulation. Plan as above. Cont supportive care and hold ASA and lovenox. Appreciate Ortho input and recommendation for continue bo wrap, holding Lovenox for 3 days No surgery needed Hgb stable; 7.5 -> 7.6 Per heme/onc - agree with holding Lovenox for 3 days vs decreasing dose frequency from BID to daily dosing, will need heme/onc follow-up (3) Acute kidney injury superimposed on chronic kidney disease: Plan: Chronic, baseline creatinine around 1.2-1.4 This may be related to poor PO intake 2/2 unable to ambulate, etc. Will gently hydrate with NSS overnight and repeat BMP in am. Hold home ARB therapy. (4) Anemia: Plan: Acute blood loss anemia? 2/2 hematomas. Hemoglobin dropped to 7.2 from 8.6 yesterday Repeat hemoglobin at 1 PM showed stability at 7.5 Will not give any blood transfusion for now Monitor CBC Hemoglobin 7.5 (5) CKD (chronic kidney disease), stage III: Plan: chronic, baseline creatinine around 1.2-1.4. Cr 1.41 today. This may be related to poor PO intake 2/2 unable to ambulate, etc. Advising more PO intake. 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 No h/o hypercoagulable state after workup historically. IVC filter in place in 2007 and still present. 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 Discussed with the patient about importance of anticoagulation-pros and cons where discussed with the patient Recommended to have anticoagulation to be started by Ortho after about 72 hours of stability of hemoglobin (7) HTN (hypertension): Plan: Chronic, elevated 2/2 uncontrolled pain. Cont aggressive pain control and if not improved despite good pain control, cont alternative to her home ARB therapy given the acute renal failure. BP improving and now normotensive (8) Diabetic peripheral neuropathy associated with type 2 diabetes mellitus: Plan: Chronic, controlled per outpatient records A1C 6.9 in January 2023. Hold Trulicity and metformin and use insulin while in the hospital. Repeat A1C in am. A1c 7.0 (9) History of DVT (deep vein thrombosis): (10) History of pulmonary embolism: Plan: IVC filter in place. DVT prophylaxis: chemoprophylaxis contraindicated in setting of hematoma. Mechanical prophy contraindicated in setting of large hematoma and severe pain with minimal movement. Full Code as discussed with patient on admission. Plan for dc to [facility] tomorrow if remains medically stable. Patient seen in collaboration with Dr. Diaz. Please see addendum. Admission and Anticipated Discharge Date Admission Date: July 12, 2023 Supervising Physician Co-Signing Physician Notes delayed entry date of service noted above Attending Addendum: care coordinated with JORDAN Theresa Gil please refer to her notes for full details, I agree with her notes patient seen and examined, records reviewed by myself as well diagnoses and plan of care as per JORDAN Theresa Diaz MD Subjective Seen in follow up for R thigh hematoma in 379-1. Continues to feel better with decreased pain in right thigh. Was able to get up and ambulate yesterday. Was sleeping when PT/OT came to evaluate today but plans to work with him today. Denies any other acute symptoms overnight. No fever, chills, lightheadedness, chest pain, shortness of breath, nausea, vomiting, abdominal pain, dysuria. Had a bowel movement last evening. Denies any melena or hematochezia. Review of Systems Review of Systems: At least ten systems reviewed and negative except as noted in the HPI. Physical Exam Physical Exam: Gen: WD/WN, NAD, resting in bed, A&Ox3 HEENT: Normocephalic, atraumatic, conjunctivae moist, sclerae anicteric, mucous membranes moist Lung: Clear to Auscultation bilaterally, no wheezes/rales/rhonchi Heart: Regular rate, regular rhythm, + JAKE Abdomen: Soft, NT, ND +BS x 4 Extremities: R thigh with diffuse hematoma, no TTP, bo wrap in place Skin: Warm, no rash Results & Data Results & Data Vital Signs (Past 12 Hours) Vital Signs Temp Pulse Resp BP BP Pulse Ox O2 Del Method 07/15/23 15:32 36.7 C 77 16 125/75 95 Room Air 07/15/23 08:55 36.5 C 73 16 146/78 H 97 Room Air 07/15/23 08:00 Room Air Laboratory Results Short CBC 07/15/23 Range/Units 10:00 WBC 9.87 (4.8-10.8) K/ul Hgb 7.6 L (12.0-16.0) g/dl Hct 24.6 L (37.0-47.0) % Plt Count 227 (130-400) K/uL BMP 07/15/23 10:00 Sodium 136 Potassium 4.7 Chloride 110 H Carbon Dioxide 20 L BUN 43 H Creatinine 1.41 H Glucose 224 H Calcium 8.4 L Diagnostic Findings Femur X-Ray 07/12/23 11:30 XR pelvis 1-2V routine, XR femur RT 2V routine CLINICAL HISTORY: pain TECHNIQUE: A single frontal view of the pelvis was obtained. 2 views of the right femur were obtained. Comparison: None available at the time of this dictation. FINDINGS: There is no evidence of an acute fracture. Degenerative changes are seen in the hip joints and lumbar spine. Vascular calcifications are noted. IMPRESSION: No evidence of acute osseous injury. ACT 112: Negative or not required by law. Electronically signed by: Hipolito Jimenez M.D. 07/12/2023 12:28 PM Pelvis X-Ray 07/12/23 11:30 XR pelvis 1-2V routine, XR femur RT 2V routine CLINICAL HISTORY: pain TECHNIQUE: A single frontal view of the pelvis was obtained. 2 views of the right femur were obtained. Comparison: None available at the time of this dictation. FINDINGS: There is no evidence of an acute fracture. Degenerative changes are seen in the hip joints and lumbar spine. Vascular calcifications are noted. IMPRESSION: No evidence of acute osseous injury. ACT 112: Negative or not required by law. Electronically signed by: Hipolito Jimenez M.D. 07/12/2023 12:[address] 07/12/23 13:12 RIGHT FEMUR/THIGH CT WITHOUT CONTRAST CLINICAL HISTORY: Hematoma vs abscess. COMPARISON STUDY: Right femur radiographs performed earlier today. TECHNIQUE: Axial images of the right femur were obtained without IV contrast. Sagittal and coronal reconstructions were viewed. Automated exposure control was utilized for the study. A dose lowering technique was utilized adhering to the principles of ALARA. FINDINGS: No fracture within the right femur is present. No acute fracture wi thin the visualized portions of the pelvis are identified. There is no pelvic lymphadenopathy. No pelvic fluid collections are present. There is sigmoid diverticulosis without evidence for acute diverticulitis. Symphysis pubis is intact. No suspicious osseous lesions within the right femur are noted. There is moderate vascular calcification within the right common femoral and superficial femoral veins. Subcutaneous edema of the right thigh is noted with skin thickening. Note is made of 2 adjacent large hyperdense subcutaneous collections within the distal medial right thigh. The larger more superior collection measures 10.6 x 8.8 x 4.6 cm. The adjacent collection measures 7.6 x 7.5 x 4.4 cm. Several fluid-fluid levels with hematocrit effect are noted within these collections. IMPRESSION: 1. Two large adjacent hyperdense subcutaneous fluid collections of the distal medial right thigh consistent with hematomas. The largest hematoma measures 10.6 x 8.8 x 4.6 cm. 2. Moderate right thigh subcutaneous edema. A portion of this fluid likely reflects associated hemorrhage. 3. No fractures within the right femur. ACT 112: Negative or not required by law. Electronically signed by: Kevin Castillo M.D. 07/12/2023 2:05 PM (1) Leg pain Laterality: right Qualified Code(s): M79.604 - Pain in right leg (4) Anemia Anemia type: unspecified type Qualified Code(s): D64.9 - Anemia, unspecified
[2023-07-16] MEDS: ACETAMINOPHEN 500 MG TAB PO SCH ×2 (00:49→09:36)
[2023-07-16 08:45] LABS: Basophils # (auto) 0.02 K/uL (0.00-0.20); Basophils % (auto) 0.2 %; Eosinophils # (auto) 0.08 K/uL (0.00-0.50); Eosinophils % (auto) 0.9 %; Hematocrit (blood only) 23.2 % (37.0-47.0); Hemoglobin 7.1 g/dl (12.0-16.0); Immature Granulocytes # (auto) 0.06 K/uL (0.01-0.20); Immature Granulocytes % (auto) 0.6 %; Lymphocytes # (auto) 0.77 K/uL (1.20-3.40); Lymphocytes % (auto) 8.2 %; Mean Corpuscular Hemoglobin 31.1 pg (25.0-34.0); Mean Corpuscular Hgb Conc 30.6 g/dL (32.0-36.0); Mean Corpuscular Volume 101.8 fL (80.0-100.0); Mean Platelet Volume 11.2 fL (9.4-12.4); Monocytes # (auto) 0.82 K/uL (0.11-0.59); Monocytes % (auto) 8.7 %; Neutrophils # (auto) 7.64 K/uL (1.40-6.50); Neutrophils % (auto) 81.4 %; Nucleated RBC # (auto) 0.04 K/uL (0.00-0.12); Nucleated RBC % (auto) 0.4 %; Platelet Count 225 K/uL (130-400); RDW Coefficient of Variation 15.8 % (11.5-14.5); RDW Standard Deviation 56.9 fL (36.4-46.3); Red Blood Count 2.28 M/uL (4.20-5.40); White Blood Count 9.39 K/ul (4.8-10.8)
[2023-07-16] MEDS ORDERED: LANTUS PER UNIT CHARGE SQ SCH (09:00)
[2023-07-16 09:03] LABS: BUN Creatinine Ratio 34.9 (10-20); Calcium 8.5 mg/dl (8.6-10.3); Creatinine Clr Calc Pharmacy 37.8 ml/min; Est GFR (African American) 48.3 ml/min; Est GFR (Non-African American) 41.6 ml/min; Potassium 4.8 mmol/L (3.5-5.1)
[2023-07-16 09:16] LABS: Polychromasia 1+
[2023-07-16] MEDS: allopurinoL 100 MG TAB PO SCH (09:35)
[2023-07-16] MEDS: METOPROLOL TARTRATE 25 MG TAB PO SCH (09:35)
[2023-07-16] MEDS: COLESTIPOL HCL 1 GM TAB PO SCH (09:35)
[2023-07-16] MEDS: PANTOprazole 40 MG TAB PO SCH (09:35)
[2023-07-16] MEDS: INSULIN ASPART PER UNIT CHARGE SC SCH (09:36)
[2023-07-16] MEDS: DOCUSATE SODIUM 100 MG CAP PO SCH (09:36)
--- NOTE | 2023-07-16 09:46 | Pharmacy Report ---
Pharmacy Glycemic Short Note 2 - Date of Service July 16, 2023 - Glycemic Short BSG Results (Last 24 hours): 07/15/23 07/15/23 07/15/23 10:00 11:39 17:08 Glucose 224 H POC Glucose 166 H 148 H 07/15/23 07/16/23 07/16/23 20:35 07:06 07:35 Glucose 98 POC Glucose 239 H 95 OUTPATIENT ANTIDIABETIC REGIMEN: * Metformin 500 mg PO BIDM * Trulicity 1.5 mg SC weekly HbA1c: 7% (07/13/23) ASSESSMENT: 07/16/23: * Basal held 07/14 and 07/15 - blood sugars up to 239mg/dl by the end of the day yesterday, will resume basal a reduced dose as patient went low on 07/14 after 20 units on 07/13. * Tighten CR slightly for better glycemic control throughout the day when eating. 07/15/23: * BSGs labile yesterday, 69, 191, 73, and 163 mg/dL w/ fasting BSG this morning of 111 mg/dL * Received 9 units of bolus insulin only on 07/14/23 * Will maintain loose NovoLog today, but consider tightening tomorrow if BSGs begin to trend up 07/14/23: * AP is a 77 year old female admitted on 07/12/23 w/ severe right leg pain w/ associated hematomas in upper right thigh * Pharmacy consulted for glycemic management morning of 07/14/23 due to prolonged hypoglycemia this morning * Patient received 20 units of basal insulin and 11 units of prandial/correctional bolus, which resulted in very tight BSG control yesterday w/ low this morning * Will discontinue basal insulin altogether and loosen Novolog parameters today. Consider restarting low-dose basal insulin once BSGs trend up. PLAN FOR INPATIENT GLYCEMIC CONTROL: * Hold outpatient diabetes medications * Basal insulin * 8 units daily * Bolus insulin * NovoLog per scale ACHS or Q6hrs while NPO * Goal Range: Low 120 mg/dL - High 150 mg/dL * Correction Factor: 35 mg/dL/unit * Nutritional / Prandial insulin per carb ratio of 1 unit per 12 grams CHO consumed
--- NOTE | 2023-07-16 10:22 | Orthopedic Progress Note ---
Date of Service July 16, 2023 Assessment & Plan (1) Hematoma: Plan: Recommend holding her Lovenox for minimum of 3 days. Recommend SCDs for her bilateral lower extremities while she is in bed to decrease her risk of DVT. She should also ambulate with the assistance of her walker to decrease risk of DVT. Ice and symptomatic measures as well as compression including an Ben wrap for her hematoma. No surgery is indicated at present. Follow up at [facility] as scheduled With questions contact our clinic at [phone] Admission and Anticipated Discharge Date Admission Date: July 12, 2023 Subjective 77-year-old female seen today for follow-up of a left thigh hematoma. She states that her pain is much better than it had been. She states that she has been able to participate with physical therapy and Occupational Therapy. She states that she has been compressing it with an Ben bandage and icing. Patient states that her is coming to get her today to take her to a [facility] facility for rehab. Currently she denies chest pain, shortness of breath, fever, chills, sweats, numbness or tingling in the right lower extremity. She also denies nausea, vomiting, diarrhea or difficulty voiding. Review of Systems Review of Systems: All systems reviewed & are unremarkable except as noted in Subjective Physical Exam Physical Exam: Right lower extremity: Ben bandage was removed from the patient's distal thigh. She has a significant area of edema and ecchymosis that is soft to touch. She also has edema and ecchymosis tracking into the gluteal area and distally to the calf. She is able to perform an active straight leg raise test. She is able to actively dorsi and plantarflex her foot. The hematoma to her thigh is only minimally tender to palpation. There is no warmth or open skin areas. She is able to to extend her knee to 0 degrees and flex beyond 100 degrees. Her quad strength is 3+ out of 5. Peripheral pulses 2+. She is neurovascularly intact in the right lower extremity. Results & Data Vital Signs (Past 12 Hours) Vital Signs Temp Pulse Resp BP Pulse Ox O2 Del Method 07/16/23 08:08 36.7 C 74 16 120/72 94 Room Air 07/15/23 23:27 Room Air Diagnostic Findings Laboratory Results WBC 9.39 K/ul (4.8-10.8) 07/16/23 07:06 RBC 2.28 M/uL (4.20-5.40) L 07/16/23 07:06 Hgb 7.1 g/dl (12.0-16.0) L 07/16/23 07:06 Hct 23.2 % (37.0-47.0) L 07/16/23 07:06 MCV 101.8 fL (80.0-100.0) H 07/16/23 07:06 MCH 31.1 pg (25.0-34.0) 07/16/23 07:06 MCHC 30.6 g/dL (32.0-36.0) L 07/16/23 07:06 RDW Std Deviation 56.9 fL (36.4-46.3) H 07/16/23 07:06 RDW Coeff of Beka 15.8 % (11.5-14.5) H 07/16/23 07:06 Plt Count 225 K/uL (130-400) 07/16/23 07:06 MPV 11.2 fL (9.4-12.4) 07/16/23 07:06 Immature Gran % (Auto) 0.6 % 07/16/23 07:06 Neut % (Auto) 81.4 % 07/16/23 07:06 Lymph % (Auto) 8.2 % 07/16/23 07:06 Todd % (Auto) 8.7 % 07/16/23 07:06 Eos % (Auto) 0.9 % 07/16/23 07:06 Baso % (Auto) 0.2 % 07/16/23 07:06 Neut # (Auto) 7.64 K/uL (1.40-6.50) H 07/16/23 07:06 Lymph # (Auto) 0.77 K/uL (1.20-3.40) L 07/16/23 07:06 Todd # (Auto) 0.82 K/uL (0.11-0.59) H 07/16/23 07:06 Eos # (Auto) 0.08 K/uL (0.00-0.50) 07/16/23 07:06 Baso # (Auto) 0.02 K/uL (0.00-0.20) 07/16/23 07:06 Immature Gran # (Auto) 0.06 K/uL (0.01-0.20) 07/16/23 07:06 Absolute Nucleated RBC 0.04 K/uL (0.00-0.12) 07/16/23 07:06 Nucleated RBC % (auto) 0.4 % 07/16/23 07:06 Polychromasia 1+ 07/16/23 07:06 Hypochromasia Present 07/15/23 10:00 PT 10.8 Seconds (9.0-12.0) 07/12/23 12:15 INR 1.0 (0.9-1.1) 07/12/23 12:15 APTT 25 Seconds (21-31) 07/12/23 12:15 PTT Ratio 0.9 07/12/23 12:15 Sodium 139 mmol/L (136-145) 07/16/23 07:06 Potassium 4.8 mmol/L (3.5-5.1) 07/16/23 07:06 Chloride 112 mmol/L (98-107) H 07/16/23 07:06 Carbon Dioxide 22 mmol/L (21-32) 07/16/23 07:06 Anion Gap 5 (3-11) 07/16/23 07:06 BUN 44 mg/dl (6-23) H 07/16/23 07:06 Creatinine 1.26 mg/dl (0.6-1.2) H 07/16/23 07:06 Est Cr Clr Drug Dosing 37.8 ml/min 07/16/23 07:06 Est GFR ( Amer) 48.3 ml/min 07/16/23 07:06 Est GFR (Non-Af Amer) 41.6 ml/min 07/16/23 07:06 BUN/Creatinine Ratio 34.9 (10-20) H 07/16/23 07:06 Glucose 98 mg/dl (70-99(Fasting)) 07/16/23 07:06 POC Glucose 95 mg/dl (70-99) 07/16/23 07:35 Estimat Average Glucose 154 mg/dl 07/13/23 05:49 Hemoglobin A1c 7.0 % (4.5-5.6) H 07/13/23 05:49 Calcium 8.5 mg/dl (8.6-10.3) L 07/16/23 07:06 Iron 30 mcg/dl (35-150) L 07/13/23 05:49 TIBC 241 mcg/dl (250-450) L 07/13/23 05:49 Unsaturated IBC 211 mcg/dl (155-355) 07/13/23 05:49 Transferrin % Sat 12 % (15-50) L 07/13/23 05:49 Vitamin B12 336 pg/ml (180-914) 07/13/23 05:49 Folate 7.77 ng/ml (>5.38) 07/13/23 05:49 Impressions Femur X-Ray 07/12/23 11:30 XR pelvis 1-2V routine, XR femur RT 2V routine CLINICAL HISTORY: pain TECHNIQUE: A single frontal view of the pelvis was obtained. 2 views of the right femur were obtained. Comparison: None available at the time of this dictation. FINDINGS: There is no evidence of an acute fracture. Degenerative changes are seen in the hip joints and lumbar spine. Vascular calcifications are noted. IMPRESSION: No evidence of acute osseous injury. ACT 112: Negative or not required by law. Electronically signed by: Hipolito Jimenez M.D. 07/12/2023 12:28 PM Pelvis X-Ray 07/12/23 11:30 XR pelvis 1-2V routine, XR femur RT 2V routine CLINICAL HISTORY: pain TECHNIQUE: A single frontal view of the pelvis was obtained. 2 views of the right femur were obtained. Comparison: None available at the time of this dictation. FINDINGS: There is no evidence of an acute fracture. Degenerative changes are seen in the hip joints and lumbar spine. Vascular calcifications are noted. IMPRESSION: No evidence of acute osseous injury. ACT 112: Negative or not required by law. Electronically signed by: Hipolito Jimenez M.D. 07/12/2023 12:[address] 07/12/23 13:12 RIGHT FEMUR/THIGH CT WITHOUT CONTRAST CLINICAL HISTORY: Hematoma vs abscess. COMPARISON STUDY: Right femur radiographs performed earlier today. TECHNIQUE: Axial images of the right femur were obtained without IV contrast. Sagittal and coronal reconstructions were viewed. Automated exposure control was utilized for the study. A dose lowering technique was utilized adhering to the principles of ALARA. FINDINGS: No fracture within the right femur is present. No acute fracture within the visualized portions of the pelvis are identified. There is no pelvic lymphadenopathy. No pelvic fluid collections are present. There is sigmoid diverticulosis without evidence for acute diverticulitis. Symphysis pubis is intact. No suspicious osseous lesions within the right femur are noted. There is moderate vascular calcification within the right common femoral and superficial femoral veins. Subcutaneous edema of the right thigh is noted with skin thickening. Note is made of 2 adjacent large hyperdense subcutaneous collections within the distal medial right thigh. The larger more superior collection measures 10.6 x 8.8 x 4.6 cm. The adjacent collection measures 7.6 x 7.5 x 4.4 cm. Several fluid-fluid levels with hematocrit effect are noted within these collections. IMPRESSION: 1. Two large adjacent hyperdense subcutaneous fluid collections of the distal medial right thigh consistent with hematomas. The largest hematoma measures 10.6 x 8.8 x 4.6 cm. 2. Moderate right thigh subcutaneous edema. A portion of this fluid likely reflects associated hemorrhage. 3. No fractures within the right femur. ACT 112: Negative or not required by law. Electronically signed by: Kevin Castillo M.D. 07/12/2023 2:05 PM
--- NOTE | 2023-07-16 11:34 | Discharge Summary ---
Discharge Summary Date of Service July 16, 2023 Notes For Next Care Provider RLE hematoma in setting of anticoagulation, complex recurrent DVT history Medication Changes From Visit Resume Lovenox at reduced dose of 80mg SQ daily Admission HPI Per Admitting Provider 77 yo F presents with acute right leg pain 2/2 multiple hematomas. She has a h/o DVT initially in 2007 with IVC filter placed at that time. She was on coumadin but INR was difficult to control and she was switched to apixaban in 2020?. She developed an extensive DVT in her RLE in May 2023 and was placed on Lovenox injections. Denied any noncompliance with apixaban doses during that time. Sees hematology [facility] (Dr. Nielsen) and history of hypercoagulable workup was negative. Has no known family history of thrombotic complications. Acute right thigh pain started Sat, two days ago, in upper right thigh area along the inside part of right thigh. No alleviating factors and she was in bed for two days-able to transfer independently to bedside commode with her pain getting worse. She has been taking her Lovenox for the past month and states that her pharmacist was reducing her dose from 60mg BID to now 40mg BID. She injects herself in her abdomen and took her morning dose this morning. She takes baby aspirin but has no h/o stroke or CAD that is known. She denies any other pain or symptoms but reports concerns that she has urinary incontinence issues and may not make it to the commode. We discussed the purwick option. Pain is currently uncontrolled so starting oxycodone PRN and scheduled APAP after discussing this with her. We discussed common side effects of narcotics including drowsiness and bowel slowing, and that we would also start Colace prophylactically. She did have an IVC filter placed in 2007 and states this was never removed to her knowledge. Admission Exam Per Admitting Provider CONSTITUTIONAL: WNWD, vitals as above, generally well-appearing, NAD EYES: PERRL, normal conjunctivae, no scleral icterus ENT: external ear and nose normal, MMM NECK: trachea midline RESPIRATORY: clear to auscultation bilaterally, no crackles, rales or wheezes, normal respiratory effort CARDIOVASCULAR: regular rate and rhythm, S1 and 2 heard without murmurs, gallops or rubs, no JVD, no peripheral edema CHEST: inspection of chest was normal GASTROINTESTINAL: soft, nontender, ND, no guarding MUSCULOSKELETAL: strength 5/5 throughout, however, there is intense pain with an y movement, especially of her legs. No pain in the left leg. Extremities are warm and well perfused. SKIN: warm and dry, there is what appears at first glance to be a mottling of the RLE, however, this matches the left leg where there is no issue and patient reports this is how her skin normally appears. NEUROLOGIC: No facial palsy, no dysarthria. CN 2-12 grossly intact, no sensory deficit, normal cognition, normal speech, no tremor PSYCHIATRIC: alert cooperative and oriented to person, place and time. Euthymic mood, makes good eye contact, language grossly intact, recent and remote memory grossly intact. Principal Dx & Hospital Course #1 = Principal Diagnosis (1) Leg pain: (2) Anemia: (3) Anticoagulated by anticoagulation treatment: (4) Hematoma: (5) History of DVT (deep vein thrombosis): (6) History of pulmonary embolism: This is a 77 yo F presents with acute right leg pain 2/2 multiple hematomas. She has a h/o DVT initially in 2007 with IVC filter placed at that time. History of DVTs and recently developed an extensive DVT in her RLE in May 2023 and was placed on Lovenox injections prior to presenting on admission with severe RLE pain and found to have extensive area of ecchymosis with associated hematomas in her upper thigh area. Spontaneous hematoma on anticoagulation Femur CT with:1. Two large adjacent hyperdense subcutaneous fluid collections of the distal medial right thigh consistent with hematomas. The largest hematoma measures 10.6 x 8.8 x 4.6 cm No evidence of compartment syndrome Lovenox and Aspirin were held on admission Appreciate Ortho input and recommendation for continue bo wrap, holding Lovenox for at least 3 days, weight bear as tolerated, ice areas as needed for pain and swelling No surgery needed. Follow up at [facility] as scheduled. With questions contact our clinic at [phone] Has been moving the right leg, planning to continue PT/OT at [facility] Hgb stable; 7.5 -> 7.6, asymptomatic Discussed with Dr. 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 Nielsen at [facility] for further guidance (7) Acute kidney injury superimposed on chronic kidney disease: Chronic, baseline creatinine around 1.2-1.4 -> returned to baseline with increasing fluids (8) HTN (hypertension): Chronic, elevated 2/2 uncontrolled pain. BP improved and returned to normotensive range. Resume ARB, monitor BMP (9) Diabetic peripheral neuropathy associated with type 2 diabetes mellitus: Chronic, controlled per outpatient records A1C 6.9 in January 2023. Hold Trulicity and metformin and use insulin while in the hospital. Repeat A1C in am. A1c 7.0 Discharge Exam Gen: WD/WN, NAD, resting in bed, A&Ox3 HEENT: Normocephalic, atraumatic, conjunctivae moist, sclerae anicteric, mucous membranes moist Lung: Clear to Auscultation bilaterally, no wheezes/rales/rhonchi Heart: Regular rate, regular rhythm, + JAKE Abdomen: Soft, NT, ND +BS x 4 Extremities: R thigh with diffuse hematoma, no TTP, bo wrap in place Skin: Warm, no rash Updated Medication List Medication Instructions Recorded Confirmed Type allopurinol 100 mg tablet 100 mg PO DAILY 04/20/19 07/12/23 History cholecalciferol (vitamin D3) 50 2,000 units PO DAILY 04/20/19 07/12/23 History mcg (2,000 unit) tablet colestipol 1 gram tablet 1 gm PO BID 04/20/19 07/12/23 History metoprolol tartrate 25 mg tablet 25 mg PO BID #180 tabs 04/20/19 07/12/23 History triamcinolone acetonide 0.1 % 1 appln topical BID PRN Skin 04/20/19 07/12/23 History topical cream Irritation ferrous sulfate 325 mg (65 mg 325 mg PO DAILY 05/07/20 07/12/23 History iron) tablet metformin 500 mg tablet,extended 500 mg PO BID 05/07/20 07/12/23 History release 24 hr pantoprazole 20 mg tablet,delayed 20 mg PO DAILY 05/07/20 07/12/23 History release dulaglutide 1.5 mg/0.5 mL 1.5 mg subcut WE@0900 04/24/21 07/12/23 History subcutaneous pen injector (Trulicity) omega 9-[id number]-fish oil 1,000 mg 4 cap PO DAILY 06/19/22 07/12/23 History (120 mg-180 mg) capsule (Fish Oil) olmesartan 5 mg tablet (Benicar) 10 mg PO DAILY 10/01/22 07/12/23 History alendronate 70 mg tablet 70 mg PO WE@0900 05/05/23 07/12/23 History enoxaparin 80 mg/0.8 mL 80 mg (0.8 mL) subcut DAILY #8 mL 07/16/23 Rx subcutaneous syringe (Lovenox) Hospital Stay Data Consultations 07/12/23 15:40 Consult Orthopedic Surgery Stat 07/12/23 15:50 ED Decision to Admit Stat 07/12/23 16:30 Consult Orthopedic Surgery Routine Diagnostic Imagining Performed 07/12/23 13:12 CT femur RT wo con Stat Pending Results Patient Have Any Pending Studies at Discharge: No Discharge Instructions Given to Patient (Per Discharging Provider) MEDICATION CHANGES: Please resume Lovenox at reduced dose of 80mg SQ daily tomorrow, 07/17 SUMMARY OF TEST RESULTS: You were admitted to hospital secondary right leg pain 2/2 hematoma Evaluated by ortho surgery - no evidence of compartment syndrome Lovenox and aspirin were held with improved hgb Per discussion with heme/onc, will resume Lovenox at 80mg SQ daily PENDING TEST RESULTS: None RECOMMENDATIONS FOR FOLLOW-UP: Follow up with PCP as scheduled. Ortho recommendations as below. Recommend SNFist check anti-Xa level after 5 days and adjust Lovenox dose accordingly to obtain therapeutic dose. Primary nail technician is Dr. Nielsen of [facility] for assistance adjusting dose based on Xa levels. Phone number is [phone]. Please repeat BMP and CBC levels every few days to monitor hgb and renal function. OTHER INSTRUCTIONS: Seek medical attention if you have: * temperature above 101 * chest pain or trouble breathing * abdominal pain, nausea, vomiting * diarrhea, dark stools or bloody stools * any unanswered questions or concerns Call 911 if symptoms are severe. Please take good care of yourself. Call if you have any questions or problems. You can reach a [facility] hospitalist on duty at [facility] 24 hours a day by calling [phone]. Total Time Total Time Spent Total Time Spent (In Minutes): 70 Supervising Physician Co-Signing Physician Notes delayed entry date of service noted above Attending Addendum: care coordinated with JORDAN Gil please refer to her notes for full details, I agree with her notes patient seen and examined, records reviewed by myself as well diagnoses and plan of care as per JORDAN Diaz MD
== END 2023-07-16 12:33 | DRG 813 ==
LOC: ED 10:55 → SUATTDRO 16:19 → 3N 16:19

== ENCOUNTER 2023-11-21 19:54 | Inpatient (IN) ==
[2023-11-21 20:44] LABS: Basophils # (auto) 0.03 K/uL (0.00-0.20); Basophils % (auto) 0.3 %; Eosinophils # (auto) 0.01 K/uL (0.00-0.50); Eosinophils % (auto) 0.1 %; Hematocrit (blood only) 33.9 % (37.0-47.0); Hemoglobin 10.6 g/dl (12.0-16.0); Immature Granulocytes # (auto) 0.06 K/uL (0.01-0.20); Immature Granulocytes % (auto) 0.6 %; Lymphocytes # (auto) 0.48 K/uL (1.20-3.40); Lymphocytes % (auto) 4.4 %; Mean Corpuscular Hemoglobin 29.3 pg (25.0-34.0); Mean Corpuscular Hgb Conc 31.3 g/dL (32.0-36.0); Mean Corpuscular Volume 93.6 fL (80.0-100.0); Mean Platelet Volume 10.7 fL (9.4-12.4); Monocytes # (auto) 0.88 K/uL (0.11-0.59); Monocytes % (auto) 8.1 %; Neutrophils # (auto) 9.41 K/uL (1.40-6.50); Neutrophils % (auto) 86.5 %; Platelet Count 252 K/uL (130-400); RDW Coefficient of Variation 16.7 % (11.5-14.5); RDW Standard Deviation 56.9 fL (36.4-46.3); Red Blood Count 3.62 M/uL (4.20-5.40); White Blood Count 10.87 K/ul (4.8-10.8)
[2023-11-21 21:03] LABS: Albumin Level 3.4 gm/dl (3.4-5.0); BUN Creatinine Ratio 40.9 (10-20); Bilirubin Direct 0.1 mg/dl (0-0.2); Bilirubin,Total 0.9 mg/dl (0.2-1.0); Calcium 9.2 mg/dl (8.6-10.3); Creatinine Clr Calc Pharmacy 41.4 ml/min; Est GFR (African American) 56.9 ml/min; Est GFR (Non-African American) 49.1 ml/min; Potassium 4.5 mmol/L (3.5-5.1); Total Protein 6.1 gm/dl (6.0-8.3)
--- NOTE | 2023-11-21 21:51 | Emergency Department Note ---
Impression & Plan Bilateral edema of lower extremity, Ambulatory dysfunction, CHF exacerbation ED Provider Note NAME: RADHA COHN AGE: 77 SEX: F : 1945 ARRIVES VIA: Ambulance INFORMANT: Patient, ED PROVIDER(S): Marcy Nielsen MD CHIEF COMPLAINT: Leg swelling/difficulty ambulating HPI: This is a 77-year-old female presenting for leg swelling, weakness. Patient states that she has been able to walk over the past 1 day due to weakness. She is notes that her legs are significantly swollen. She is not on any Lasix or fluid pills. She notes a history of hypertension otherwise but denies any current chest pain or shortness of breath. She takes 81 mg aspirin and 40 mg of Lovenox daily. Otherwise she notes no fevers or chills. She has never had any heart failure in the past. She notes that she lives at home and it has gotten so bad that she is unable to even walk to her bedside commode which is only few feet from her. ROS: See above HPI for pertinent positives & negatives. A total of 10 systems reviewed and were otherwise negative. PHYSICAL EXAMINATION: General: resting comfortably in no acute distress Head: Normocephalic and atraumatic Eyes: Normal inspection, extraocular muscles intact Ear, nose, throat: Normal external exam Neck: Normal range of motion Respiratory: lungs clear to auscultation bilaterally Cardiovascular: Regular rate/rhythm, no murmur GI: soft, nontender, no guarding or rebound Extremities: nontender, moves all extremities, 2+ pitting edema to bilateral lower extremities Neuro: The patient awake and alert, appropriately conversive, no focal deficits, symmetric faces Skin: Warm, dry, and intact MEDICAL DECISION MAKING: This is a 77-year-old female sent for leg swelling and weakness. Consider CHF low concern for DVT/PE due to patient's Lovenox use. Consider failure to thrive as well. -Laboratory showing a WBC count of 10.87, anemia of 10.6, generally stable electrolytes. -BNP is elevated to 282, negative troponin -Chest x-ray as independent interpreted by me does show a possible pleural effusion in the left lower lobe -Overall she does appear fluid overloaded with her lower extremity swelling, making it difficult for her to ambulate, BNP elevation. Will admit for CHF and diuresis. Differential diagnosis: See above ER treatment provided: See below Diagnostics interpreted by me: ECG: ECG independently interpreted by me with normal sinus rhythm, rate of 82, left axis deviation, first-degree AV block, right bundle branch block, normal QTc, no ST segment elevations consistent with STEMI criteria Cardiac Monitoring: An order was placed for continuous cardiac monitoring. The monitor shows a rate of 74 with sinus rhythm. Laboratory studies: As stated above and show below. Imaging studies: See below. Past Med/Surg History Medical History (Updated 11/22/23 @ 01:07 by Marcy Nielsen MD) Acute kidney injury superimposed on chronic kidney disease Hiatal hernia Peptic ulcer Postgastric surgery syndrome Endometrial cancer D&C in -1979 Age related osteoporosis Urinary tract infection CKD (chronic kidney disease), stage III Aortic stenosis HTN (hypertension) Presence of IVC filter History of pulmonary embolism History of DVT (deep vein thrombosis) Hyperlipidemia Gout DM type 2 (diabetes mellitus, type 2) Surgical History History of femoropopliteal bypass S/P VAN (total abdominal hysterectomy) History of cataract surgery S/P repair of paraesophageal hernia History of incisional hernia repair S/P AAA repair Family History Mother Hypertension Social History Smoking Status: Never smoker Second Hand Exposure: No; Do You Dip or Chew Tobacco: No; Hx Alcohol Use: No Hx Substance Use: No Preferred Language: Lithuanian Communication Ability: Effective Visual Impairment: Limited Hearing Ability: Use of Hearing Aid Melt House Supervisor Required: No Beliefs That Will Affect Care: None marital status: Current Living Situation: Spouse current occupational status: retired and disabled How many Children do You have: 1 How many Children do You have Comment: Daughter is local, pt's and daughter able to assist with care as needed. Feels Safe at Home: Yes Diet: regular caffeine: Yes Assistive Devices: Bedside Commode, Brace/Splint/Immobilizer and Walker Allergies Allergies Allergy/AdvReac Type Severity Reaction Status Date / Time No Known Allergies Allergy Verified 07/28/23 22:47 Home Meds Home Medications Medication Instructions Recorded Confirmed allopurinol 100 mg tablet 100 mg PO DAILY 04/20/19 11/21/23 cholecalciferol (vitamin D3) 50 2,000 units PO DAILY 04/20/19 11/21/23 mcg (2,000 unit) tablet colestipol 1 gram tablet 1 gm PO BID 04/20/19 11/21/23 metoprolol tartrate 25 mg tablet 25 mg PO BID #180 tabs 04/20/19 11/21/23 triamcinolone acetonide 0.1 % 1 appln topical BID PRN Skin 04/20/19 11/21/23 topical cream Irritation ferrous sulfate 325 mg (65 mg 325 mg PO DAILY 05/07/20 11/21/23 iron) tablet metformin 500 mg tablet,extended 500 mg PO BID 05/07/20 11/21/23 release 24 hr pantoprazole 20 mg tablet,delayed 20 mg PO DAILY 05/07/20 11/21/23 release omega 9-uav-tmg-fish oil 1,000 mg 4 cap PO DAILY 06/19/22 11/21/23 (120 mg-180 mg) capsule (Fish Oil) olmesartan 5 mg tablet (Benicar) 10 mg PO DAILY 10/01/22 11/21/23 alendronate 70 mg tablet 70 mg PO WK 05/05/23 11/21/23 acetaminophen 325 mg tablet 650 mg PO Q4H PRN Pain (Scale 07/28/23 11/21/23 (Tylenol) Score 1-3)/FEVER >100.4 dulaglutide 1.5 mg/0.5 mL 1.5 mg subcut WK 07/28/23 11/21/23 subcutaneous pen injector (Trulicity) aspirin 81 mg tablet,delayed 81 mg PO DAILY 11/21/23 11/21/23 release enoxaparin 40 mg/0.4 mL 0.4 mg subcut QAM 11/21/23 11/21/23 subcutaneous syringe Results & Data (ED) Vital Signs Vital Signs - 24 hr 11/21/23 20:01 11/21/23 22:30 11/21/23 23:00 Temperature 36.6 C Temperature Source Oral Pulse Rate 79 68 Pulse Rate [Apical] 84 Pulse Rate from SpO2 Sensor 70 Pulse Rhythm Regular Pulse Rhythm [Apical] Regular Pulse Strength Normal Pulse Strength [Apical] Normal Respiratory Rate 24 24 16 Respiratory Effort / Characteristics Non-Labored Non-Labored Respiratory Depth Normal Normal Respiratory Pattern Regular Regular Blood Pressure 185/74 H 155/123 H Blood Pressure [Right Arm] 197/110 H Blood Pressure Mean 111 133 Blood Pressure Mean [Right Arm] 139 Blood Pressure Position Sitting Blood Pressure Position [Right Arm] Sitting Pulse Oximetry 96 99 99 Oxygen Delivery Method Room Air Room Air Sepsis Recent Fever Within 48 Hours No Sepsis New/Unexplained Change in Mental Status No Sepsis Action Taken by Nursing No Action Required 11/21/23 23:15 11/21/23 23:30 11/22/23 00:00 Temperature Temperature Source Pulse Rate 73 74 Pulse Rate [Apical] Pulse Rate from SpO2 Sensor 72 72 Pulse Rhythm Pulse Rhythm [Apical] Pulse Strength Pulse Strength [Apical] Respiratory Rate 33 H 31 H 33 H Respiratory Effort / Characteristics Respiratory Depth Respiratory Pattern Blood Pressure 174/94 H 175/77 H 166/72 H Blood Pressure [Right Arm] Blood Pressure Mean 120 109 103 Blood Pressure Mean [Right Arm] Blood Pressure Position Blood Pressure Position [Right Arm] Pulse Oximetry 98 98 Oxygen Delivery Method Sepsis Recent Fever Within 48 Hours Sepsis New/Unexplained Change in Mental Status Sepsis Action Taken by Nursing Laboratory Data 11/21/23 20:11 11/21/23 20:11 Lab Results 11/21/23 Range/Units 20:11 WBC 10.87 H (4.8-10.8) K/ul RBC 3.62 L (4.20-5.40) M/uL Hgb 10.6 L (12.0-16.0) g/dl Hct 33.9 L (37.0-47.0) % MCV 93.6 (80.0-100.0) fL MCH 29.3 (25.0-34.0) pg MCHC 31.3 L (32.0-36.0) g/dL RDW Std Deviation 56.9 H (36.4-46.3) fL RDW Coeff of [place]ek[place] 16.7 H (11.5-14.5) % Plt Count 252 (130-400) K/uL MPV 10.7 (9.4-12.4) fL Immature Gran % (Auto) 0.6 % Neut % (Auto) 86.5 % Lymph % (Auto) 4.4 % [place] % (Auto) 8.1 % Eos % (Auto) 0.1 % Baso % (Auto) 0.3 % Neut # (Auto) 9.41 H (1.40-6.50) K/uL Lymph # (Auto) 0.48 L (1.20-3.40) K/uL [place] # (Auto) 0.88 H (0.11-0.59) K/uL Eos # (Auto) 0.01 (0.00-0.50) K/uL Baso # (Auto) 0.03 (0.00-0.20) K/uL Immature Gran # (Auto) 0.06 (0.01-0.20) K/uL Sodium 138 (136-145) mmol/L Potassium 4.5 (3.5-5.1) mmol/L Chloride 110 H (98-107) mmol/L Carbon Dioxide 21 (21-32) mmol/L Anion Gap 7 (3-11) BUN 45 H (6-23) mg/dl Creatinine 1.10 (0.6-1.2) mg/dl Est Cr Clr Drug Dosing 41.4 ml/min Est GFR ( Amer) 56.9 ml/min Est GFR (Non-Af Amer) 49.1 ml/min BUN/Creatinine Ratio 40.9 H (10-20) Glucose 217 H (70-99(Fasting)) mg/dl Calcium 9.2 (8.6-10.3) mg/dl Magnesium 1.5 L (1.7-2.4) mg/dl Total Bilirubin 0.9 (0.2-1.0) mg/dl Direct Bilirubin 0.1 (0-0.2) mg/dl AST 20 (13-39) U/L ALT 25 (7-52) U/L Alkaline Phosphatase 98 (34-104) U/L Troponin I High Sens 12.0 (0-14) pg/ml B-Natriuretic Peptide 282 H (0-100) pg/ml Total Protein 6.1 (6.0-8.3) gm/dl Albumin 3.4 (3.4-5.0) gm/dl Lipase 10 L (11-82) U/L TSH 0.733 (0.300-4.500) uIu/ml Administered Medications Magnesium Sulfate/Dextrose (Magnesium Sulfate / D5w) 1 gm in 100 mls @ 50 mls/hr IV Q2H ABBIE Stop: 11/22/23 03:29 Last Admin: 11/21/23 23:41 Dose: 50 mls/hr Documented By: LUZMARIA Discontinued Medications Furosemide (Furosemide Inj 20 Mg/2 Ml Vial) 20 mg IV ONE ONE Stop: 11/21/23 23:49 Last Admin: 11/22/23 00:32 Dose: 20 mg Documented By: LUZMARIA Metoprolol Tartrate (Metoprolol Tartrate 50 Mg Tab) 50 mg PO NOW STA Stop: 11/21/23 22:50 Last Admin: 11/21/23 23:05 Dose: 50 mg Documented By: LUZMARIA Discharge Plan Visit Data Chief Complaint: Leg Weakness, Bilateral Stated Complaint: Weakness/Numbness in Lower Extremities ED Provider: Marcy Nielsen Discharge Problem: Bilateral edema of lower extremity, Ambulatory dysfunction, CHF exacerbation Discharge Instructions Interventions: ED Discharge Assessment Last Done: 11/22/23 01:04
[2023-11-21 23:02] LABS: Magnesium 1.5 mg/dl (1.7-2.4)
[2023-11-21] MEDS: METOPROLOL TARTRATE 50 MG TAB PO STA (23:05)
[2023-11-21] MEDS: MAGNESIUM SULFATE / D5W 1 GM/100 ML BAG IV SCH (23:41)
--- NOTE | 2023-11-21 23:48 | History & Physical Report ---
Date of Service November 21, 2023 Assessment & Plan (1) Localized swelling of both lower legs: Plan: History chronic right leg lymphedema with new left leg swelling ? Possible right-sided heart failure Rule out pulmonary hypertension History moderate Rule out recurrent DVT hypertension, elevated secondary discomfort hyperlipidemia, on statin rx hx PVD sp surgery hypercoagulable state, hx recurrent PE DVT status post IVC filter placement on chronic Lovenox prophylaxis/history no NOAC failure DM2 on oral medications, well-controlled as of recent outpatient hemoglobin A1c of 5.8 this year endometrial cancer status post surgery chronic anemia, hemoglobin at baseline mood disorder, stable PCU Lasix 1 dose now Check TTE to rule out pulm hypertension, CHF; follow-up on valvular heart disease May need cardiology evaluation Titrate home BP meds LE venous Dopplers rule out DVT ISS BG goal 1 10-1 40, carb count coverage DVT prophylaxis. Lovenox subcu Full code History of Present Illness Chief Complaint: Bilateral leg swelling, weakness Primary Care Provider: Madhuri Galicia, History obtained from patient and records. Medical history significant for moderate (TTE 2020), AAA status post surgery, hypertension, hyperlipidemia, PUD/GERD status post surgery, hypercoagulable state, hx recurrent PE DVT status post IVC filter placement on chronic Lovenox prophylaxis, history NOAC failure, DM2 on oral medications, endometrial cancer status post surgery, chronic left leg lymphedema, chronic anemia (baseline hemoglobin of 10), past history of C. difficile, mood disorder. Last confinement June 2023 for spontaneous right femoral hematoma on weight- based Lovenox BID dosing. Patient eventually discharged Lovenox once daily anticoagulation eventually resumed with outpatient periodic anti-Xa levels to guide therapy following [facility] transfusion specialist recommendations. 2 weeks ago, patient noted increase left leg swelling followed by worsening of chronic RLE swelling. Patient denies chest pain, SOB. Increasing weakness from leg heaviness. No fever, no chills. No headache symptoms. No weight gain as per patient. Patient snores at home according to . Unaware of apneic episodes. Blood pressure not monitored at home. Denies dietary indiscretion. SBP 190s upon arrival at the ER. 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 Allergies Allergy/AdvReac Type Severity Reaction Status Date / Time No Known Allergies Allergy Verified 07/28/23 22:47 Home Medications Medication Instructions Recorded Confirmed Type allopurinol 100 mg tablet 100 mg PO DAILY 04/20/19 11/21/23 History cholecalciferol (vitamin D3) 50 2,000 units PO DAILY 04/20/19 11/21/23 History mcg (2,000 unit) tablet colestipol 1 gram tablet 1 gm PO BID 04/20/19 11/21/23 History metoprolol tartrate 25 mg tablet 25 mg PO BID #180 tabs 04/20/19 11/21/23 History triamcinolone acetonide 0.1 % 1 appln topical BID PRN Skin 04/20/19 11/21/23 History topical cream Irritation ferrous sulfate 325 mg (65 mg 325 mg PO DAILY 05/07/20 11/21/23 History iron) tablet metformin 500 mg tablet,extended 500 mg PO BID 05/07/20 11/21/23 History release 24 hr pantoprazole 20 mg tablet,delayed 20 mg PO DAILY 05/07/20 11/21/23 History release omega 6-uok-jkh-fish oil 1,000 mg 4 cap PO DAILY 06/19/22 11/21/23 History (120 mg-180 mg) capsule (Fish Oil) olmesartan 5 mg tablet (Benicar) 10 mg PO DAILY 10/01/22 11/21/23 History alendronate 70 mg tablet 70 mg PO WK 05/05/23 11/21/23 History acetaminophen 325 mg tablet 650 mg PO Q4H PRN Pain (Scale 07/28/23 11/21/23 History (Tylenol) Score 1-3)/FEVER >100.4 dulaglutide 1.5 mg/0.5 mL 1.5 mg subcut WK 07/28/23 11/21/23 History subcutaneous pen injector (Trulicity) aspirin 81 mg tablet,delayed 81 mg PO DAILY 11/21/23 11/21/23 History release enoxaparin 40 mg/0.4 mL 0.4 mg subcut QAM 11/21/23 11/21/23 History subcutaneous syringe Past Med/Surg History Medical History (Updated 11/22/23 @ 02:06 by Aristeo Fernandez MD) Acute kidney injury superimposed on chronic kidney disease Hiatal hernia Peptic ulcer Postgastric surgery syndrome Endometrial cancer D&C in [place]-1979 Age related osteoporosis Urinary tract infection CKD (chronic kidney disease), stage III Aortic stenosis HTN (hypertension) Presence of IVC filter History of pulmonary embolism History of DVT (deep vein thrombosis) Hyperlipidemia Gout DM type 2 (diabetes mellitus, type 2) Surgical History History of femoropopliteal bypass S/P VAN (total abdominal hysterectomy) History of cataract surgery S/P repair of paraesophageal hernia History of incisional hernia repair S/P AAA repair Family History Mother Hypertension Social History Smoking Status: Never smoker Second Hand Exposure: No; Do You Dip or Chew Tobacco: No; Tobacco Cessation Education Requested by Patient: No Hx Alcohol Use: No Hx Substance Use: No Preferred Language: Spanish Communication Ability: Effective Visual Impairment: Limited Hearing Ability: Use of Hearing Aid Licensed Psychologist Manager Required: No Beliefs That Will Affect Care: None marital status: Current Living Situation: Spouse Current Living Situation Comment: with current occupational status: retired and disabled How many Children do You have: 1 How many Children do You have Comment: Daughter is local, pt's and daughter able to assist with care as needed. Other Information That Helps Us Care for You: No Feels Safe at Home: Yes Safety Concerns: Feels Safe At This Time Diet: regular caffeine: Yes Assistive Devices: Cane, Walker and Wheelchair Review of Systems Review of Systems: As per HPI, all other systems reviewed and negative Physical Exam Physical Exam: GENERAL: Comfortable, slightly anxious, no respiratory distress SKIN: Pallor, warm HEENT: Bespectacled, pale palpebral conjunctivae, no ptosis, moist buccal mucosa NECK : Supple, no tenderness CHEST : CTA, no tenderness HEART : RRR, systolic murmur ABDOMEN: Some distention, nontender EXTREMITIES : Bilateral LE swelling with minimal tenderness, no other conspicuous deformities noted NEUROLOGIC : Coherent, no facial asymmetry, no other gross focality Results & Data Results & Data Vital Signs (Past 12 Hours) Vital Signs Temp Pulse Pulse Resp BP BP Pulse Ox 05/05/24 23:30 73 31 H 175/77 H 98 11/21/23 23:15 33 H 174/94 H 98 11/21/23 23:00 68 16 155/123 H 99 11/21/23 22:30 84 24 197/110 H 99 11/21/23 20:01 36.6 C 79 24 185/74 H 96 O2 Del Method 11/21/23 23:30 11/21/23 23:15 11/21/23 23:00 11/21/23 22:30 Room Air 11/21/23 20:01 Room Air Laboratory Results Laboratory Results WBC 10.87 K/ul (4.8-10.8) H 11/21/23 20:11 RBC 3.62 M/uL (4.20-5.40) L 11/21/23 20:11 Hgb 10.6 g/dl (12.0-16.0) L 11/21/23 20:11 Hct 33.9 % (37.0-47.0) L 11/21/23 20:11 MCV 93.6 fL (80.0-100.0) 11/21/23 20:11 MCH 29.3 pg (25.0-34.0) 11/21/23 20:11 MCHC 31.3 g/dL (32.0-36.0) L 11/21/23 20:11 RDW Std Deviation 56.9 fL (36.4-46.3) H 11/21/23 20:11 RDW Coeff of Beka 16.7 % (11.5-14.5) H 11/21/23 20:11 Plt Count 252 K/uL (130-400) 11/21/23 20:11 MPV 10.7 fL (9.4-12.4) 11/21/23 20:11 Immature Gran % (Auto) 0.6 % 11/21/23 20:11 Neut % (Auto) 86.5 % 11/21/23 20:11 Lymph % (Auto) 4.4 % 11/21/23 20:11 [place] % (Auto) 8.1 % 11/21/23 20:11 Eos % (Auto) 0.1 % 11/21/23 20:11 Baso % (Auto) 0.3 % 11/21/23 20:11 Neut # (Auto) 9.41 K/uL (1.40-6.50) H 11/21/23 20:11 Lymph # (Auto) 0.48 K/uL (1.20-3.40) L 11/21/23 20:11 [place] # (Auto) 0.88 K/uL (0.11-0.59) H 11/21/23 20:11 Eos # (Auto) 0.01 K/uL (0.00-0.50) 11/21/23 20:11 Baso # (Auto) 0.03 K/uL (0.00-0.20) 11/21/23 20:11 Immature Gran # (Auto) 0.06 K/uL (0.01-0.20) 11/21/23 20:11 Sodium 138 mmol/L (136-145) 11/21/23 20:11 Potassium 4.5 mmol/L (3.5-5.1) 11/21/23 20:11 Chloride 110 mmol/L (98-107) H 11/21/23 20:11 Carbon Dioxide 21 mmol/L (21-32) 11/21/23 20:11 Anion Gap 7 (3-11) 11/21/23 20:11 BUN 45 mg/dl (6-23) H 11/21/23 20:11 Creatinine 1.10 mg/dl (0.6-1.2) 11/21/23 20:11 Est Cr Clr Drug Dosing 41.4 ml/min 11/21/23 20:11 Est GFR ( Amer) 56.9 ml/min 11/21/23 20:11 Est GFR (Non-Af Amer) 49.1 ml/min 11/21/23 20:11 BUN/Creatinine Ratio 40.9 (10-20) H 11/21/23 20:11 Glucose 217 mg/dl (70-99(Fasting)) H 11/21/23 20:11 Calcium 9.2 mg/dl (8.6-10.3) 11/21/23 20:11 Magnesium 1.5 mg/dl (1.7-2.4) L 11/21/23 20:11 Total Bilirubin 0.9 mg/dl (0.2-1.0) 11/21/23 20:11 Direct Bilirubin 0.1 mg/dl (0-0.2) 11/21/23 20:11 AST 20 U/L (13-39) 11/21/23 20:11 ALT 25 U/L (7-52) 11/21/23 20:11 Alkaline Phosphatase 98 U/L (34-104) 11/21/23 20:11 Troponin I High Sens 12.0 pg/ml (0-14) 11/21/23 20:11 B-Natriuretic Peptide 282 pg/ml (0-100) H 11/21/23 20:11 Total Protein 6.1 gm/dl (6.0-8.3) 11/21/23 20:11 Albumin 3.4 gm/dl (3.4-5.0) 11/21/23 20:11 Lipase 10 U/L (11-82) L 11/21/23 20:11 Diagnostic Findings Chest x-ray as per my interpretation atelectasis, hilar fullness EKG as per my interpretation : Rate 80, NSR, LAD, LAFB, RBBB T wave ab normalities inferior leads
[2023-11-21] MEDS ORDERED: PROMETHAZINE HCL 6.25 MG in SODIUM CHLORIDE 0.9% 50 ML IV PRN (23:52)
[2023-11-22 00:24] LABS: Thyroid Stimulating Hormone 0.733 uIu/ml (0.300-4.500)
[2023-11-22] MEDS: FUROSEMIDE INJ 20 MG/2 ML VIAL IV ONE (00:32)
[2023-11-22] MEDS ORDERED: GLUCOSE 40% GEL 15 GM TUBE PO PRN (01:56)
[2023-11-22] MEDS ORDERED: GLUCAGON FOR INJ 1 MG VIAL SQ PRN (01:56)
[2023-11-22] MEDS ORDERED: DEXTROSE 50% 50 ML SYRINGE IV PRN (01:56)
[2023-11-22] MEDS ORDERED: CARBOHYDRATES FOR HYPOGLYCEMIA PO PRN (01:56)
[2023-11-22] MEDS ORDERED: GLUCOSE 10 TAB/TUBE PO PRN (01:56)
[2023-11-22] MEDS: INSULIN ASPART PER UNIT CHARGE SC SCH (03:48)
--- NOTE | 2023-11-22 04:41 | Ultrasound Report ---
Exam(s): US VENOUS BILATERAL LOWER EXTREMITIES EXAM: US Duplex Bilateral Lower Extremities Veins CLINICAL HISTORY: Reason for exam: leg swelling. TECHNIQUE: Real-time duplex ultrasound scan of the bilateral lower extremity veins integrating B-mode two-dimensional vascular structure, Doppler spectral analysis, color flow Doppler imaging and compression. COMPARISON: Right lower extremity venous ultrasound 07/28/2023. FINDINGS: Right deep veins: Nonocclusive thrombus in the right common femoral and proximal superficial femoral veins, which appears slightly smaller/decreased as compared to the prior study. No thrombus identified in the mid to distal superficial femoral and popliteal veins. Left deep veins: No prior study. No thrombus identified in the common femoral vein. Occlusive thrombus in 1 of the 2 proximal to mid superficial femoral veins. No thrombus in the distal left superficial femoral and popliteal veins. Soft tissues: Edema in the bilateral popliteal fossa and calf. Soft tissue. No popliteal cyst. IMPRESSION: Slight decrease in the previously demonstrated chronic nonocclusive deep venous thrombosis in the right common femoral and proximal superficial femoral veins. Occlusive thrombus in 1 of 2 proximal to mid left superficial femoral veins. No prior study available to determine chronicity. Subcutaneous soft tissue swelling. Communications: Call Doctor DVT acute, progressing Electronically signed by: Kurtis Domínguez M.D. 11/22/23 04:39 AM
[2023-11-22 04:47] LABS: Basophils # (auto) 0.04 K/uL (0.00-0.20); Basophils % (auto) 0.4 %; Eosinophils # (auto) 0.02 K/uL (0.00-0.50); Eosinophils % (auto) 0.2 %; Hematocrit (blood only) 34.1 % (37.0-47.0); Hemoglobin 10.9 g/dl (12.0-16.0); Immature Granulocytes # (auto) 0.05 K/uL (0.01-0.20); Immature Granulocytes % (auto) 0.5 %; Lymphocytes % (auto) 4.6 %; Mean Corpuscular Hemoglobin 29.9 pg (25.0-34.0); Mean Corpuscular Volume 93.4 fL (80.0-100.0); Mean Platelet Volume 11.1 fL (9.4-12.4); Monocytes # (auto) 1.03 K/uL (0.11-0.59); Monocytes % (auto) 9.4 %; Neutrophils % (auto) 84.9 %; Platelet Count 265 K/uL (130-400); RDW Coefficient of Variation 16.6 % (11.5-14.5); Red Blood Count 3.65 M/uL (4.20-5.40); White Blood Count 10.94 K/ul (4.8-10.8)
[2023-11-22 05:36] LABS: BUN Creatinine Ratio 42.9 (10-20); Calcium 9.4 mg/dl (8.6-10.3); Creatinine Clr Calc Pharmacy 46.4 ml/min; Est GFR (African American) 65.4 ml/min; Est GFR (Non-African American) 56.4 ml/min; Potassium 4.2 mmol/L (3.5-5.1)
--- NOTE | 2023-11-22 06:00 | Communication Note ---
Date of Service: November 22, 2023 Made aware of LE venous Doppler support Slight decrease in the previously demonstrated chronic nonocclusive deep venous thrombosis in the right common femoral and proximal superficial femoral veins. Occlusive thrombus in 1 of 2 proximal to mid left superficial femoral veins. No prior study available to determine chronicity. Subcutaneous soft tissue swelling. AP Possible new DVT LLE History hypercoagulable state, recurrent PE DVT currently on Lovenox 40 mg subcutaneous daily outpatient (dosed by [facility] following periodic outpatie nt anti Xa level draws). History spontaneous leg hematoma on weight-based Lovenox (June 2023 confinement) Check anti Xa level Administer weight-based Lovenox BID if anti Xa level not high Lovenox 60 mg SQ BID (instead of Pharmacy recommendation of 70 mg SQ BID following current patient weight of 65.2 kg) given history of spontaneous hematoma. 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 Nielsen) for additional recommendations.
[2023-11-22] MEDS: LOSARTAN POTASSIUM 50 MG TAB PO STA (06:12)
[2023-11-22 06:16] LABS: ANTI-Xa, UFH(UnfractionatedHep 0.13 IU/ml (0.3-0.7); Partial Thromboplastin Time 28 Seconds (21-31)
--- NOTE | 2023-11-22 07:36 | XRay Report ---
XR chest 1V portable HISTORY: Shortness of breath. COMPARISON: Chest 06/20/2012. FINDINGS: Chronic elevation of the right hemidiaphragm with a right basilar linear scarlike density. This remains unchanged. Moderate hiatus hernia again noted. The heart remains mildly enlarged. Left b asilar linear densities also favors subsegmental atelectasis or scarring. No pneumothorax. No acute f ractures. No evidence for pulmonary edema. IMPRESSION: No significant change compared to the prior study. No acute process. ACT 112: Negative or not required by law. Electronically signed by: Agus Isreal M.D. 11/22/2023 7:34 AM
[2023-11-22 08:50] LABS: Appearance Urine Clear (Clear); Bacteria Urine Automated 1+ (None Seen); Bilirubin Urine Negative (Negative); Blood Urine Negative (Negative); Cast Urine Automated 0-2 /lpf (0-2); Color Urine Yellow; Epithelial Cell Urine Auto 0-2 /hpf (0-2); Glucose Urine UA Negative (Negative); Ketones Urine Negative (Negative); Leukocyte Esterase Urine 3+ (Negative); Nitrite Urine Negative (Negative); Protein Urine Negative (Negative); RBC Urine Automated 0-2 /hpf (0-2); Specific Gravity Urine 1.008 (1.000-1.030); Urobilinogen Urine Negative (Negative); WBC Urine Automated 21-50 /hpf (0-5); pH Urine 5.5 (4.5-7.5)
--- OUTSIDE RECORDS SUMMARY | 2023-11-22 08:55 | External Medical Summary | Summary of Care ---
Author Name Unknown Organization [facility] Address [address] [place] [address] Phone [phone] Care Team Providers Care Instructor Apparel Manufacture Name Role Phone Madhuri Galicia DO Primary Care Provider Reason for Visit * Reason Onset Date Comments Med Request 10/21/2023 Advice 10/21/2023 Encounter Details Date Type Department Care Team (Late st Contact Info) Description 10/21/2023 Telephone Family Medicine [address] [place] [phone] Madhuri Galicia [address] [place] [address] Med Request; Advice Allergies Active Allergy Reactions Criticality Noted Date Comments Ben Inhibitors 12/05/2012- 2009 Stated that she does not have an allergy to Ben Inhibitors. 06/08/16 States she does not have allergy to Ben inhibitors 03/29/2019 documented as of this encounter (statuses as of 10/25/2023) Medications Medication Sig Dispensed Refills Start Date End Date Status ASPIRIN EC 81 MG PO TBEC 1 TABLET DAILY 30 Tab 0 0 Active FISH OIL 1000 MG PO CAPS four capsules by mouth daily 0 Active Cholecalciferol (VITAMIN D) 1000 units Tablet Take 1 Tablet by mouth in the morning. 0 Active Contour Next Test In Vitro Strip (Glucose Blood)Indications :Type 2 diabetes mellitus with hemoglobin A1c goal of less than 8.0% ([facility]) Use to test blood sugar once a day DXe11.9 100 Strip 3 2 Active High Potency Iron 65 MG Oral Tablet Take 65 mg by mouth in the morning. One daily. 0 Active Triamcinolone Acetonide 0.1 % External Cream (Aristocort)Indic ations:Eczema, unspecified type Apply topically to affected area 2 times a day. To affected area for up to two weeks. 60 g 5 2 Active Trulicity 1.5 MG/0.5ML Subcutaneous Solution Pen-injector (Dulaglutide)Lois cations:Type 2 diabetes mellitus with hemoglobin A1c goal of less than 8.0% ([facility]) Inject 1.5 mg under the skin once a week. 6 mL 3 3 Active Alendronate Sodium 70 MG Oral Tablet (Fosamax)Indicati ons:Age-related osteoporosis without current pathological fracture Take 1 Tablet by mouth once a week. with 8 oz. water 30 minutes before first meal of the day. Remain upright for 30 min after taking tablet. 15 Tablet 1 4 Active Allopurinol 100 MG Oral Tablet (Zyloprim)Indicat ions:Gout TAKE 1 TABLET IN THE MORNING 90 Tablet 1 4 Active Colestipol HCl 1 GM Oral Tablet (Colestid)Indicat ions:Hyperlipidem ia with target LDL less than 70 Take 1 Tablet by mouth in the morning and 1 Tablet before bedtime. 180 Tablet 1 4 Active metFORMIN HCl ER 500 MG Oral Tablet Extended Release 24 Hour (Glucophage XR)Indications:Ty pe 2 diabetes mellitus with hemoglobin A1c goal of less than 8.0% ([facility]) Take 1 Tablet by mouth in the morning and 1 Tablet before bedtime. 180 Tablet 1 4 Active Metoprolol Tartrate 25 MG Oral Tablet (Lopressor)Indica tions:HTN, goal below 140/90 Take 1 Tablet by mouth in the morning and 1 Tablet before bedtime. 180 Tablet 1 4 Active Olmesartan Medoxomil 5 MG Oral Tablet (Benicar)Indicati ons:HTN, goal below 140/90 Take 5 mg by mouth in the morning and 5 mg before bedtime. 180 Tablet 1 4 Active Pantoprazole Sodium 20 MG Oral Tablet Delayed Release (Protonix)Indicat ions:Gastroesopha geal reflux disease without esophagitis TAKE 1 TABLET IN THE MORNING 90 Tablet 1 4 Active Atorvastatin Calcium 20 MG Oral Tablet (Lipitor)Indicati ons:Hyperlipidemi a with target LDL less than 70 Take 1 Tablet by mouth in the morning. 30 Tablet 5 4 Active Furosemide 20 MG Oral Tablet (Lasix)Indication s:Edema of right lower leg Take 1 Tablet by mouth once a day on Wednesday, Wednesday, and Wednesday only. for fluid accumulation or weight gain 30 Tablet 0 4 Active Enoxaparin Sodium 40 MG/0.4ML Injection Solution Prefilled Syringe (Lovenox) Inject 40 mg under the skin in the morning. As directed by anticoagulation clinic. 12 mL 1 4 10/25/19 24 Discontinu ed(Refill) documented as of this encounter (statuses as of 10/25/2023) Active Problems Problem Noted Date Diagnosed Date [...] as of this encounter (statuses as of 10/25/2023) Resolved Problems Problem Noted Date Diagnosed Date [...] MANAGEMENT 11/18/200905/05 Overview: Stefanie Powell RN Outpatient Supplier Quality SpecialistSoils Engineer number [phone] Fax number [phone] [facility] 11/08/2009 12/19/2012 Follow-up examination, [facility] other surgery 11/08/2009 12/19/2012 Diaphragmatic hernia 11/08/2009 [...] 02/17/2008 03/12/2017 Anticoagulation management encounter 02/17/2008 08/20/2008 [facility] current use of ant icoagulant therapy 02/17/2008 [...] as of this encounter (statuses as of 10/25/2023) Immunizations Name Administration Dates Next Due COVID-19 mRNA, LNP-s, No Pre serve, 2-Dose Series ([employer]) 05/27/2021 COVID-19, LNP-s, No Preserve , Rodrick-sucrose, Ages 12+ ([employer]) 02/03/2022 COVID-19, MRNA-LNP, 23-24, P F, 30 MCG/0.3 mL, 12 YRS AND ABOVE, IM ([employer]) 04/27/2023 Covid-19 Ad26, Single Dose ([employer]/J&J) 10/25/2020 Covid-19, Mrna, Lnp-s, Pf, B ivalent, 30 Mcg, IM, 12 yrs and above ([employer]) 06/09/2022 H1N1 2009 Influenza, IM 08/02/2009 Pneumococcal [...] encounter Miscellaneous Notes * Telephone Encounter - Kendal Currie, [facility] - 10/25/2023 1:56 PM EDT Per chart review, [facility] is referred to manage long-term enoxaparin for recurrent DVT. Referral from Dr. Giovany Nielsen and previous enoxaparin rx sent in by Dr. Nielsen. Will order enoxaparin in separate encounter for hem/onc. Thanks, Kendal Currie PharmD Clinical Pharmacist [facility] ([facility]) ([facility]) [phone] 10/25/2023 1:57 PM * Telephone Encounter - Ruba Felix RN - 10/25/2023 1:25 PM EDT Is pt to still be on Lovenox injections?Is this patch worker? * Telephone Encounter - Ilana Ledezma OSA - 10/22/2023 2:49 PM EDT Pt is checking status of medication refills. One days medication left. * Telephone Encounter - Arcelia Cardenas OSA - 10/22/2023 1:23 PM EDT Patient calling in to check on the status of previous message. Would like a phone call with an update Patient Called within 48 hour timeframe. Reminded patient of 48 hour turn-around time. * Telephone Encounter - Lissette Mariee OSA - 10/22/2023 11:50 AM EDT Patient called for update on medication refill request Advises needs today as soon as possible Pharmacy correct in TE as well as contact info for patient * Telephone Encounter - Toya Asencio OSA - 10/21/2023 8:15 AM EDT Patient needs refill on Enoxaparin Sodium 40 MG/0.4ML Injection Solution Prefilled Syringe (Lovenox), documented in this encounter Plan of Treatment Upcoming Encounters Date Type Department Care Team (Late st Contact Info) Description 11/03/2023 7:00 AM EDT Laboratory Lab Mobile Phlebotomy [facility] [address] [place] [address] [facility], G[facility] Mobile Home Draw [address] [place] [address] [address] 11/04/2023 6:00 AM EDT Anticoagulation Pharmacy Call Center WB [phone] [facility] [place] [address] [facility] 58 [address] [facility] [place] [address] 12/23/2023 1:40 PM EDT Office Visit Family Medicine [address] [place] [phone] [address] [place] [address] 01/19/2024 1:30 PM EDT Imaging Radiology [address] [place] [address] 04/28/2024 2:30 PM EDT Office Visit Family Medicine [address] [place] [phone] Madhuri Galicia, [address] [place] [address] 06/14/2024 1:00 PM EST Nurse Only Ancillary [address] [place] [address] [place], Nurse Annual Wellness [address] [place] [address] [place] [address] Health Maintenance Due Date Last Done Comments COLONOSCOPY-EVERY 5 YRS AGES 18-100 01/05/2018 01/05/2013, 01/05/2013, 06/03/2011, Additional history exists Diabetic Foot Exam 03/29/2020 03/29/2019, 0 03/03/2016, 01/08/2015, Additional history exists B-12 01/27/2024 01/26/2023, 10/18, 10/18/2020, Additional history exists CKD PHOS USE SMARTSET 94713 01/27/202401/16, 11/05/2021, 10/18/2020, Additional history exists Albumin/Creatinine Ratio 01/28/2024 023, 11/06/2021, 01/03/2020, Additional history exists Diabetic Eye Exam 02/20/2024 02/19/2023, , 11/23/2021, Additional history exists GFR 02/23/2024 08/25/2023, 07/19, 07/21/2023, Additional history exists HbA1c 02/23/2024 08/25/2023, 01/16, 07/15/2022, Additional history exists Depression Screening 06/08/2024 06/08/2023 CKD HGB USE SMARTSET 63492 07/28/202407/28, 07/21/2023, 06/17/2023, Additional history exists DXA Scan 12/02/2024 12/02/2022, 11/16, 02/11/2015, Additional history exists DTaP,Tdap,and Td Vaccines (3 - Td or Tdap) 04/26/2029 04/26/2019, 04/26/2019, 02/09/2008 Hepatitis C Screening Completed 01/20/2010, 010 Pneumococcal Vaccine: 65+ Years Completed 06/08/2016, 03/06/2015, 12/21/2014, Additional history exists Zoster Vaccines Completed 05/30/2019, 05/19, 03/29/2019, Additional history exists VITAMIN D LEVEL ONCE IN A LIFETIME-USE SMARTSET# [id number] Completed 01/26/2023, 01/03/2020, 04/22/2018, Additional history exists COVID-19 Vaccine Completed 04/27/2023, 04/2023, 06/09/2022, Additional history exists Influenza Vaccine (FLU shot) [...] this encounter Medical Devices Implanted Type Area Telesales Professional Device Identifier Shelf Expiration Date Model / Serial / Lot Alloderm 2x4 Sheet [id number] - [id number] Implanted:Qty : 1 on 11/08/2009 [place] [facility] [place] Tissue - Human N/A: Abdomen LIFE CELL AFIA 02/16/2011 [id number] / / [id number] Mesh 10 X 14 [id number] - [id number] Implanted:Qty : 1 on 02/02/2011 [place] [facility] [place] N/A: Abdomen [employer] AFIA 01/03/2015 [id number] / / [id number] Pelvic Coil Implanted:Qty : 7 on 02/04/2011 at [place] [facility] [place] Left: Pelvis Open Mile / / [id number] Description:figure 8 Pelvic Coil 2 Implanted:Qty : 5 on 02/04/2011 at [place] [facility] [place] Left: Pelvis Open Mile / / [id number] Description:figure 8 documented as of this encounter Advance Directives Documents on File Type Date Recorded Patient Appeals Rn Expl anation Advance Directives and Livin g Will 09/29/2017 LIVING WILL Power of Tanker Serviceman 09/29/2017 POWER OF A TTORNEY Latest Code [...] the patient have Health Care Power of Tanker Serviceman? No Full Code 01/18/2010 8:53 PM 01/30/2010 6:41 PM This o rder reflects the patients wishes and were consensually agreed upon. Question Answer Comments Discussion of Advance Directives occurred with: Patient Does the patient have a Living Will? No Does the patient have Health Care Power of Tanker Serviceman? No Full Code 11/18/2009 11:54 AM 11/19/2009 4:09 PM This o rder reflects the patients wishes and were consensually agreed upon. Question Answer Comments Discussion of Advance Directives occurred with: Patient Does the patient have a Living Will? No Does the patient have Health Care Power of Tanker Serviceman? No Full Code 11/13/2009 8:29 AM 11/14/2009 5:08 PM This order reflects the patients wishes and were consensually agreed upon. Care Teams Instructor Apparel Manufacture Relationship Specialty Start Date End Date Madhuri Galicia DO [address] [place] [address] [place] [address] PCP - General Internal Medicine 02/16/17 documented as of this encounter
--- OUTSIDE RECORDS SUMMARY | 2023-11-22 08:55 | External Medical Summary | Summary of Care ---
Author Name Unknown Organization [facility] Address [address] [place] [address] Phone [phone] Care Team Providers Care Seat Joiner Name Role Phone Madhuri Galicia DO Primary Care Provider Reason for Visit * Reason Onset Date Comments Health Maintenance 10/20/2023 Encounter Details Date Type Department Care Team (Late st Contact Info) Description 10/20/2023 Telephone Family Medicine [address] [place] [phone] Madhuri Galicia [address] [place] [phone] Health Maintenance Allergies Active Allergy Reactions Criticality Noted Date Comments Ben Inhibitors 12/05/2012- 2009 Stated that she does not have an allergy to Ben Inhibitors. 06/08/16 States she does not have allergy to Ben inhibitors 03/29/2019 documented as of this encounter (statuses as of 10/20/2023) Medications Medication Sig Dispensed Refills Start Date [...] A1c goal of less than 8.0% ([facility]) Use to test blood sugar once a [...] two weeks. 60 g 5 07/15/2022 Active Trulicity 1.5 MG/0.5ML Subcutaneous Solution Pen-injector (Dulaglutide)Indic ations:Type 2 diabetes mellitus with hemoglobin A1c goal of less than 8.0% ([facility]) Inject 1.5 mg under the skin once a week. 6 mL 3 06/08/2023 Active Alendronate Sodium 70 MG Oral Tablet (Fosamax)Indicatio ns:Age-related osteoporosis without current pathological fracture Take 1 Tablet by mouth once a week. with 8 oz. water 30 minutes before first meal of the day. Remain upright for 30 min after taking tablet. 15 Tablet 1 08/23/2023 Active Allopurinol 100 MG Oral Tablet (Zyloprim)Indicati ons:Gout TAKE 1 TABLET IN THE MORNING 90 Tablet 1 08/23/2023 Active Colestipol HCl 1 GM Oral Tablet (Colestid)Indicati ons:Hyperlipidemia with target LDL less than 70 Take 1 Tablet by mouth in the morning and 1 Tablet before bedtime. 180 Tablet 1 08/23/2023 Active metFORMIN HCl ER 500 MG Oral Tablet Extended Release 24 Hour (Glucophage XR)Indications:Typ e 2 diabetes mellitus with hemoglobin A1c goal of less than 8.0% ([facility]) Take 1 Tablet by mouth in the morning and 1 Tablet before bedtime. 180 Tablet 1 08/23/2023 Active Metoprolol Tartrate 25 MG Oral Tablet (Lopressor)Indicat ions:HTN, goal below 140/90 Take 1 Tablet by mouth in the morning and 1 Tablet before bedtime. 180 Tablet 1 08/23/2023 Active Olmesartan Medoxomil 5 MG Oral Tablet (Benicar)Indicatio ns:HTN, goal below 140/90 Take 5 mg by mouth in the morning and 5 mg before bedtime. 180 Tablet 1 08/23/2023 Active Pantoprazole Sodium 20 MG Oral Tablet Delayed Release (Protonix)Indicati ons:Gastroesophage al reflux disease without esophagitis TAKE 1 TABLET IN THE MORNING 90 Tablet 1 08/23/2023 Active Enoxaparin Sodium 40 MG/0.4ML Injection Solution Prefilled Syringe (Lovenox) Inject 40 mg under the skin in the morning. As directed by anticoagulation clinic. 12 mL 1 08/23/2023 Active Atorvastatin Calcium 20 MG Oral Tablet (Lipitor)Indicatio ns:Hyperlipidemia with target LDL less than 70 Take 1 Tablet by mouth in the morning. 30 Tablet 5 08/27/2023 Active Furosemide 20 MG Oral Tablet (Lasix)Indications :Edema of right lower leg Take 1 Tablet by mouth once a day on Wednesday, Wednesday, and Wednesday only. for fluid accumulation or weight gain 30 Tablet 0 09/27/2023 Active documented as of this encounter (statuses as of 10/20/2023) Active Problems Problem Noted Date Diagnosed Date [...] as of this encounter (statuses as of 10/20/2023) Resolved Problems Problem Noted Date Diagnosed Date [...] MANAGEMENT 11/18/200905/05 Overview: Stefanie Powell RN Outpatient Php Mysql Web DeveloperPeriodicals Clerk number [phone] Fax number [phone] Hypotension 11/08/2009 12/19/2012 Follow-up examination, jerel sarah [...] 02/17/2008 03/12/2017 Anticoagulation management encounter 02/17/2008 08/20/2008 salvage determiner current use of ant icoagulant therapy 02/17/2008 [...] as of this encounter (statuses as of 10/20/2023) Immunizations Name Administration Dates Next Due COVID-19 mRNA, LNP-s, No Pre serve, 2-Dose Series ([employer]) 05/27/2021 COVID-19, LNP-s, No Preserve , Rodrick-sucrose, Ages 12+ ([employer]) 02/03/2022 COVID-19, MRNA-LNP, 23-24, P F, 30 MCG/0.3 mL, 12 YRS AND ABOVE, IM ([employer]-ComirnatSviral) 04/27/2023 Covid-19 Ad26, Single Dose ([employer]/J&J) 10/25/2020 Covid-19, Mrna, Lnp-s, Pf, B ivalent, 30 Mcg, IM, 12 yrs and above ([employer]) 06/09/2022 H1N1 2009 Influenza, IM 08/02/2009 Pneumococcal [...] encounter Miscellaneous Notes * Telephone Encounter - Sabina Neff RAYSA - 10/20/2023 11:11 AM EDT Care Gaps Comprehensive Care Outreach Last Office/Telemedicine Visit: 09/21/2023 (in office), Visit date not found (telemedicine) Next Office Visit: 12/23/2023 Hemoglobin AIC Results: Lab Results Component Value Date/Time HEMOGLOBIN A1C - [facility] 5.8 (H) 08/25/2023 12:18 PM HEMOGLOBIN A1C - [facility] 6.9 (H) 01/26/2023 12:23 PM HEMOGLOBIN A1C - [facility] 7.2 (H) 07/15/2022 04:08 PM HEMOGLOBIN A1C - [facility] 7.9 (H) 05/06/2020 01:29 PM HEMOGLOBIN A1C - [facility] 9.3 (H) 01/03/2020 01:03 PM HEMOGLOBIN A1C - [facility] 8.1 (H) 04/22/2018 11:37 AM BP Readings from Last 1 Encounters: 09/21/23 108/72 Reviewed Health Maintenance below: Health Maintenance Topic Date Due COLONOSCOPY-EVERY 5 YRS AGES 18-100 01/05/2018 Diabetic Foot Exam 03/29/2020 Colon my g Mamm already scheduled order placed Care Gap Outreach Action Taken: Inzen Studiot message sent documented in this encounter Plan of Treatment Upcoming Encounters Date Type Department Care Team (Late st Contact Info) Description 11/03/2023 7:00 AM EDT Laboratory Lab Mobile Phlebotomy [facility] [address] [place] [address] [facility], G[facility] Mobile Home Draw [address] [place] [address] 11/04/2023 6:00 AM EDT Anticoagulation Pharmacy Call Center WB [phone] [facility] [place] [address] [facility] 58 [address] [facility] [place] [address] 12/23/2023 1:40 PM EDT Office Visit Family Medicine [address] [phone] Roly Sagastume [address] [place] [address] 01/19/2024 1:30 PM EDT Imaging Radiology [address] [place] [address] 04/28/2024 2:30 PM EDT Office Visit Family Medicine [address] [place] [phone] Madhuri Galicia, [address] [place] [address] 06/14/2024 1:00 PM EST Nurse Only Ancillary [address] [place] [address] [place], Nurse Annual [address] [place] [address] Scheduled Orders Name Type Priority Associated Diagnoses Orde r Schedule MAMMOGRAM SCREENING ALEJANDRA BILATERAL Medical Imaging Routine Encounter for screening mammogram for malignant neoplasm of breast Expected: 10/20/2023, Expires: 11/18/2024 Health Maintenance Due Date Last Done Comments COLONOSCOPY-EVERY 5 YRS AGES 18-100 01/05/2018 01/05/2013, 01/05/2013, 06/03/2011, Additional history exists Diabetic Foot Exam 03/29/2020 03/29/2019, 0 03/03/2016, 01/08/2015, Additional history exists B-12 01/27/2024 01/26/2023, 10/18, 10/18/2020, Additional history exists CKD PHOS USE SMARTSET 19712 01/27/202401/16, 11/05/2021, 10/18/2020, Additional history exists Albumin/Creatinine Ratio 01/28/2024 023, 11/06/2021, 01/03/2020, Additional history exists Diabetic Eye Exam 02/20/2024 02/19/2023, , 11/23/2021, Additional history exists GFR 02/23/2024 08/25/2023, 07/19, 07/21/2023, Additional history exists HbA1c 02/23/2024 08/25/2023, 01/16, 07/15/2022, Additional history exists Depression Screening 06/08/2024 06/08/2023 CKD HGB USE SMARTSET 20588 07/28/202407/28, 07/21/2023, 06/17/2023, Additional history exists DXA Scan 12/02/2024 12/02/2022, 11/16, 02/11/2015, Additional history exists DTaP,Tdap,and Td Vaccines (3 - Td or Tdap) 04/26/2029 04/26/2019, 04/26/2019, 02/09/2008 Hepatitis C Screening Completed 01/20/2010, 010 Pneumococcal Vaccine: 65+ Years Completed 06/08/2016, 03/06/2015, 12/21/2014, Additional history exists Zoster Vaccines Completed 05/30/2019, 05/19, 03/29/2019, Additional history exists VITAMIN D LEVEL ONCE IN A LIFETIME-USE SMARTSET# [id number] Completed 01/26/2023, 01/03/2020, 04/22/2018, Additional history exists [...] this encounter Medical Devices Implanted Type Area Mechanical Project Engineer Device Identifier Shelf Expiration Date Model / Serial / Lot Alloderm 2x4 Sheet [id number] - [id number] [place]ed:[place] : 1 [place] [facility] [place] - Human N/A: Abdomen LaunchKey 02/16/2011 [id number] / / [id number] Mesh 10 X 14 [id number] - [id number] Implanted:Qty : 1 [place] 02[place]02/2011 [place] [facility] [place] N/A: Abdomen [employer] 01/03/2015 [id number] / / [id number] Pelvic Coil Implanted:Qty : 7 on 02/04/2011 [place] [facility] [place] Left: Pelvis [employer] / / [id number] Description:figure 8 Pelvic Coil 2 Implanted:Qty : 5 on 02/04/2011 [place] [facility] [place] Left: Pelvis [employer] / / [id number] Description:figure 8 documented as of this encounter Visit Diagnoses Diagnosis Encounter for screening mammogram for malignant neoplasm of breast- Primary Other screening mammogram documented in this encounter Advance Directives Documents on File Type Date Recorded Patient Technology Professional Expl dheeraj Advance Directives and Livin g Will 09/29/2017 LIVING WILL Power of Database Consultant 09/29/2017 POWER OF A TTORNEY Latest [...] the patient have Health Care Power of Database Consultant? No Full Code 01/18/2010 8:53 PM 01/30/2010 6:41 PM This o rder reflects the patients wishes and were consensually agreed upon. Question Answer Comments Discussion of Advance Directives occurred with: Patient Does the patient have a Living Will? No Does the patient have Health Care Power of Database Consultant? No Full Code 11/18/2009 11:54 AM 11/19/2009 4:09 PM This o rder reflects the patients wishes and were consensually agreed upon. Question Answer Comments Discussion of Advance Directives occurred with: Patient Does the patient have a Living Will? No Does the patient have Health Care Power of Database Consultant? No Full Code 11/13/2009 8:29 AM 11/14/2009 5:08 PM This order reflects the patients wishes and were consensually agreed upon. Care Teams Seat Joiner Relationship Specialty Start Date End Date Madhuri Galicia DO [address] [place] [address] [place] [address] PCP - General Internal Medicine 02/16/17 documented as of this encounter
--- OUTSIDE RECORDS SUMMARY | 2023-11-22 08:55 | External Medical Summary | Summary of Care ---
Author Name Unknown Organization [facility] Address [address] [facility] [place] [address] Phone [phone] Care Team Providers Care Utility Bill Collection Clerk Name Role Phone GaliciaMadhuri DO Primary Care Provider Reason for Visit * Reason Onset Date Comments Medication Refill 10/25/2023 Encounter Details Date Type Department Care Team (Late st Contact Info) Description 10/25/2023 Telephone Hematology Oncology, Lucille [address] [place] [address] Gregory Nielsen MD [address] [place] [address] Medication Refill Allergies Active Allergy Reactions Criticality Noted Date [...] hemoglobin A1c goal of less than 8.0% ([facility]) Use to test blood sugar once [...] Sodium 40 MG/0.4ML Injection Solution Prefilled Syringe (Lovenox)Indicati ons: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 As directed by anticoagulation clinic. 12 mL 5 4 Active Enoxaparin Sodium 40 MG/0.4ML Injection [...] MANAGEMENT 11/18/200905/05 Overview: Stefanie Powell RN Outpatient Hopper OperatorPropagation Worker number [phone] Fax number [phone] Hypotension 11/08/2009 12/19/2012 Follow-up examination, jerel wing other surgery 11/08/2009 12/19/2012 Diaphragmatic hernia [...] encounter 02/17/2008 08/20/2008 FDC current use of ant icoagulant therapy 02/17/2008 [...] mRNA, LNP-s, No Pre serve, 2-Dose Series (ChipCare) 05/27/2021 COVID-19, LNP-s, No Preserve , Rodirck-sucrose, Ages 12+ (ChipCare) 02/03/2022 COVID-19, MRNA-LNP, 23-24, P F, 30 MCG/0.3 mL, 12 YRS AND ABOVE, IM (CorporateWorld-ComirnatDesura) 04/27/2023 Covid-19 Ad26, Single Dose (Buscapé/J&J) 10/25/2020 Covid-19, Mrna, Lnp-s, Pf, B ivalent, 30 Mcg, IM, 12 yrs and above ([employer]Care) 06/09/2022 H1N1 2009 Influenza, IM 08/02/2009 Pneumococcal [...] Mobile Phlebotomy [facility] [address] [place] [place] [address] M[facility], Gml Mobile Home Draw 9[address] [facility] [place] [address] 11/04/2023 6:00 AM EDT Anticoagulation Pharmacy Call Center WB [phone] [facility] [place] [address] [facility], [facility] 58 60 [facility] [place] [address] 12/23/2023 1:40 PM EDT Office Visit Family Medicine [address] [place] [phone] Roly Sagastume [address] [place] [address] 01/19/2024 1:30 PM EDT Imaging Radiology [address] [place] [address] 04/28/2024 2:30 PM EDT Office Visit Family Medicine [address] [place] [phone] Madhuri Galicia[address] [place] [address] 06/14/2024 1:00 PM EST Nurse Only Ancillary [address] [place] [address] [place], Nurse Annual Wellness [address] [place] [address] [place] [address] Health Maintenance Due Date Last Done Comments COLONOSCOPY-EVERY 5 YRS AGES 18-100 01/05/2018 01/05/2013, 01/05/2013, 06/03/2011, Additional history exists Diabetic Foot Exam 03/29/2020 03/29/2019, 0 03/03/2016, 01/08/2015, Additional history exists B-12 01/27/2024 01/26/2023, 10/18, 10/18/2020, Additional history exists CKD PHOS USE SMARTSET 89832 01/27/202401/16, 11/05/2021, 10/18/2020, Additional history exists Albumin/Creatinine Ratio 01/28/2024 023, 11/06/2021, 01/03/2020, Additional history exists Diabetic Eye Exam 02/20/2024 02/19/2023, , 11/23/2021, Additional history exists GFR 02/23/2024 08/25/2023, 07/19, 07/21/2023, Additional history exists HbA1c 02/23/2024 08/25/2023, 01/16, 07/15/2022, Additional history exists Depression Screening 06/08/2024 06/08/2023 CKD HGB USE SMARTSET 69562 07/28/202407/28, 07/21/2023, 06/17/2023, Additional history exists DXA Scan 12/02/2024 12/02/2022, 11/16, 02/11/2015, Additional history exists DTaP,Tdap,and Td Vaccines (3 - Td or Tdap) 04/26/2029 04/26/2019, 04/26/2019, 02/09/2008 Hepatitis C Screening Completed 01/20/2010, 010 Pneumococcal Vaccine: 65+ Years Completed 06/08/2016, 03/06/2015, 12/21/2014, Additional history exists Zoster Vaccines Completed 05/30/2019, 05/19, 03/29/2019, Additional history exists VITAMIN D LEVEL ONCE IN A LIFETIME-USE SMARTSET# 80110 Completed 01/26/2023, 01/03/2020, 04/22/2018, Additional history exists [...] this encounter Medical Devices Implanted Type Area Wood Grinder Device Identifier Shelf Expiration Date Model / Serial / Lot Alloderm 2x4 Sheet [id number] - [id number] Implanted:Qty : 1 on 11/08/2009 at [place] [facility] Tissue - Human N/A: Abdomen LIFE CELL AFIA 02/16/2011 [id number] / / [id number] Mesh 10 X 14 [id number] - [id number] Implanted:Qty : 1 on 02/02/2011 at OR [facility] N/A: Abdomen A[employer]IUM MED[employer] AFIA 01/03/2015 [id number] / / [id number] Pelvic Coil Implanted:Qty : 7 on 02/04/2011 at RADIOLOGY [facility] Left: Pelvis [place] / / [id number] Description:figure 8 Pelvic Coil 2 Implanted:Qty : 5 on 02/04/2011 at RADIOLOGY [facility] Left: Pelvis [place] / / [id number] Description:figure 8 documented as of this encounter Visit Diagnoses Diagnosis 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 No Full Code 01/18/2010 8:53 PM 01/30/2010 6:41 PM This o rder reflects the patients wishes and were consensually agreed upon. Question Answer Comments Discussion of Advance Directives occurred with: Patient Does the patient have a Living Will? No Does the patient have Health Care Power of Dairy Hand? No Full Code 11/18/2009 11:54 AM 11/19/2009 4:09 PM This o rder reflects the patients wishes and were consensually agreed upon. Question Answer Comments Discussion of Advance Directives occurred with: Patient Does the patient have a Living Will? No Does the patient have Health Care Power of Dairy Hand? No Full Code 11/13/2009 8:29 AM 11/14/2009 5:08 PM This order reflects the patients wishes and were consensually agreed upon. Care Teams Utility Bill Collection Clerk Relationship Specialty Start Date End Date Madhuri Galicia DO [address] [place] [address] [place] [address] PCP - General Internal Medicine 02/16/17 documented as of this encounter
--- OUTSIDE RECORDS SUMMARY | 2023-11-22 08:55 | External Medical Summary | Summary of Care ---
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 06/08/16 States she does not have allergy to Ben inhibitors 03/29/2019 documented as of this encounter (statuses as of 10/14/2023) Medications Medication Sig Dispensed Refills Start Date [...] goal of less than 8.0% ([facility]) Use to test blood sugar [...] goal of less than 8.0% ([facility]) Inject 1.5 mg under the [...] and 1 Tablet before bedtime. 180 Tablet 08/23/2023 Active metFORMIN HCl ER 500 MG Oral Tablet Extended Release 24 Hour (Glucophage XR)Indications:Typ e 2 diabetes mellitus with hemoglobin A1c goal of less than 8.0% ([facility]) Take 1 Tablet by mouth in the morning and 1 Tablet before bedtime. 180 Tablet 1 08/23/2023 Active Metoprolol Tartrate 25 MG Oral Tablet (Lopressor)Indicat ions:HTN, goal below 140/90 Take 1 Tablet by mouth in the morning and 1 Tablet before bedtime. 180 Tablet 08/23/2023 Active Olmesartan Medoxomil 5 MG Oral Tablet (Benicar)Indicatio ns:HTN, goal below 140/90 Take 5 mg by mouth in the morning and 5 mg before bedtime. 180 Tablet 08/23/2023 Active Pantoprazole Sodium 20 MG Oral [...] as of this encounter (statuses as of 10/14/2023) Active Problems Problem Noted Date Diagnosed Date [...] as of this encounter (statuses as of 10/14/2023) Resolved Problems Problem Noted Date Diagnosed Date [...] MANAGEMENT 11/18/200905/05 Overview: Stefanie Powell RN Outpatient Manager CultureMerchant Mill Utility Worker number [phone] Fax number [phone] Hypotension 11/08/2009 12/19/2012 Follow-up examination, jerel sarah [...] 03/12/2017 Anticoagulation management encounter 02/17/2008 08/20/2008 senior sustainability consultant current use of ant icoagulant therapy 02/17/2008 [...] as of this encounter (statuses as of 10/14/2023) Immunizations Name Administration Dates Next Due COVID-19 mRNA, LNP-s, No Pre serve, 2-Dose Series (SwapMob) 05/27/2021 COVID-19, LNP-s, No Preserve , Rodrick-sucrose, Ages 12+ (SwapMob) 02/03/2022 COVID-19, MRNA-LNP, 23-24, P F, 30 MCG/0.3 mL, 12 YRS AND ABOVE, IM ([employer]Y Storage Systems-ComirnatClick Security) 04/27/2023 Covid-19 Ad26, Single Dose ([employer]/J&J) 10/25/2020 Covid-19, Mrna, Lnp-s, Pf, B ivalent, 30 Mcg, IM, 12 yrs and above (SwapMob) 06/09/2022 H1N1 2009 Influenza, IM 08/02/2009 Pneumococcal [...] as of this encounter Progress Notes * Tim Mac, coin machine operator - 10/14/2023 10:45 AM EDT Contacts Type Contact Phone/Fax 10/14/2023 10:42 AM EDT Phone (Outgoing) Shikha Ricks (Self) [phone] (H) Patient Phone Numbers Spoke to Shikha via phone. Unusual Bruising or Bleeding : no Upcoming procedure: no Lovenox dose verified: compliant Labs were drawn ~ 4 hours after dose yes; AntiXa results, Lovenox dose instructions, and next antiXa date communicated as noted by Pharmacist: Yes Thank you, Tim Mac Clinical Assessment Manager [facility]) (Formerly [employer]) [phone] 10/14/2023,10:46 AM * Cheryle Alvarado [facility] - 10/14/2023 9:50 AM EDT Anticoagulation Clinic Current Lovenox Dose: 40mg daily (due to Lovenox accumulation) AntiXa level 0.53 (goal 0.6-1.0) Dose instructions: Lovenox CONTINUE 40mg daily Repeat antiXa level in 3 weeks on 11/02 with GML. Remind patient that labs must be drawn 4 hours after dose. RESHMA to contact patient with dose instructions as noted. Cheryle Alvarado RPh 10/14/23, 10:01 AM documented in this encounter Plan of Treatment Upcoming Encounters Date Type Department Care Team (Late st Contact Info) Description 11/03/2023 7:00 AM EDT Laboratory Lab Mobile Phlebotomy [facility] [address] [place] [address] M[facility], Gml Mobile Home Draw [address] [place] [address] [address] 11/04/2023 6:00 AM EDT Anticoagulation Pharmacy Call Center WB [phone] Public [place] [address] [facility] 58 60 [facility] [place] [address] 12/23/2023 1:40 PM EDT Office Visit [address] [phone] Roly Sagastume CRNP [address] [place] [address] [place] [address] 01/19/2024 1:30 PM EDT Imaging Radiology [address] [place] [address] 04/28/2024 2:30 PM EDT Office Visit Family Medicine [address] [place] [phone] Madhuri Galicia, [address] [place] [address] 06/14/2024 1:00 PM EST Nurse Only Ancillary [address] [place] [address] [place], Nurse Annual Wellness [address] [place] [address] [place] [address] Health Maintenance Due Date Last Done Comments COLONOSCOPY-EVERY 5 YRS AGES 18-100 01/05/2018 01/05/2013, 01/05/2013, 06/03/2011, Additional history exists Diabetic Foot Exam 03/29/2020 03/29/2019, 0 03/03/2016, 01/08/2015, Additional history exists B-12 01/27/2024 01/26/2023, 10/18, 10/18/2020, Additional history exists CKD PHOS USE SMARTSET 50880 01/27/202401/16, 11/05/2021, 10/18/2020, Additional history exists Albumin/Creatinine Ratio 01/28/2024 023, 11/06/2021, 01/03/2020, Additional history exists Diabetic Eye Exam 02/20/2024 02/19/2023, , 11/23/2021, Additional history exists GFR 02/23/2024 08/25/2023, 07/19, 07/21/2023, Additional history exists HbA1c 02/23/2024 08/25/2023, 01/16, 07/15/2022, Additional history exists Depression Screening 06/08/2024 06/08/2023 CKD HGB USE SMARTSET 58000 07/28/202407/28, 07/21/2023, 06/17/2023, Additional history exists DXA Scan 12/02/2024 12/02/2022, 11/16, 02/11/2015, Additional history exists DTaP,Tdap,and Td Vaccines (3 - Td or Tdap) 04/26/2029 04/26/2019, 04/26/2019, 02/09/2008 Hepatitis C Screening Completed 01/20/2010, 010 Pneumococcal Vaccine: 65+ Years Completed 06/08/2016, 03/06/2015, 12/21/2014, Additional history exists Zoster Vaccines Completed 05/30/2019, 05/19, 03/29/2019, Additional history exists VITAMIN D LEVEL ONCE IN A LIFETIME-USE SMARTSET# [id number] Completed 01/26/2023, 01/03/2020, 04/22/2018, Additional history exists [...] this encounter Medical Devices Implanted Type Area Heel Painter Device Identifier Shelf Expiration Date Model / Serial / Lot Alloderm 2x4 Sheet [id number] - [id number] Implanted:Qty : 1 on 11/08/2009 at OR [facility] Tissue - Human N/A: Abdomen LIFE CELL AFIA 02/16/2011 [id number] / / [id number] Mesh 10 X 14 [id number] - [id number] Implanted:Qty : 1 on 02/02/2011 at OR [facility] N/A: Abdomen ATRIUM MEDICAL AFIA 01/03/2015 [id number] / / [id number] Pelvic Coil Implanted:Qty : 7 on 02/04/2011 at RADIOLOGY [facility] Left: Pelvis NV Self Representation Document Preparation / / [id number] Description:figure 8 Pelvic Coil 2 Implanted:Qty : 5 on 02/04/2011 at RADIOLOGY [facility] Left: Pelvis NV Self Representation Document Preparation / / [id number] Description:figure 8 documented as of this encounter Visit Diagnoses Diagnosis 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 No Full Code 01/18/2010 8:53 PM 01/30/2010 6:41 PM This o rder reflects the patients wishes and were consensually agreed upon. Question Answer Comments Discussion of Advance Directives occurred with: Patient Does the patient have a Living Will? No Does the patient have Health Care Power of Coal Hauler? No Full Code 11/18/2009 11:54 AM 11/19/2009 4:09 PM This o rder reflects the patients wishes and were consensually agreed upon. Question Answer Comments Discussion of Advance Directives occurred with: Patient Does the patient have a Living Will? No Does the patient have Health Care Power of Coal Hauler? No Full Code 11/13/2009 8:29 AM 11/14/2009 5:08 PM This order reflects the patients wishes and were consensually agreed upon. Care Teams Trading Analyst Relationship Specialty Start Date End Date Madhuri Galicia DO [address] [place] [address] [place] [address] PCP - General Internal Medicine 02/16/17 documented as of this encounter
--- OUTSIDE RECORDS SUMMARY | 2023-11-22 08:55 | External Medical Summary | Summary of Care ---
Author Name Unknown Organization [facility] Address [address] [place] [address] Phone [phone] Care Team Providers Care Turf Manager Name Role Phone Madhuri Galicia DO Primary Care Provider [phone] Reason for Visit * Reason Comments Dosage Adjustment Via Phone (anticoag Cl inic) Encounter Details Date Type Department Care Team (Latest Contact Info) Description 11/04/2023 6:00 AM EDT Anticoagulation Pharmacy Call Center [phone] Public [place] [address] [facility], [facility] 58 60 Public [facility] [address] 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 06/08/16 States she does not have allergy to Ben inhibitors 03/29/2019 documented as of this encounter (statuses as of 11/04/2023) Medications Medication Sig Dispensed Refills Start Date [...] A1c goal of less than 8.0% ([facility]) Use to test blood sugar once [...] A1c goal of less than 8.0% ([facility]) Inject 1.5 mg under the skin [...] A1c goal of less than 8.0% ([facility]) Take 1 Tablet by mouth in [...] THE MORNING 90 Tablet 1 08/23/2023 Active Atorvastatin Calcium 20 MG [...] weight gain 30 Tablet 0 09/27/2023 Active Enoxaparin Sodium 40 MG/0.4ML Injection Solution Prefilled Syringe (Lovenox)Indicatio ns: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 As directed by anticoagulation clinic. 12 mL 5 10/25/2023 Active documented as of this encounter (statuses as of 11/04/2023) Active Problems Problem Noted Date Diagnosed Date [...] as of this encounter (statuses as of 11/04/2023) Resolved Problems Problem Noted Date Diagnosed Date [...] MANAGEMENT 11/18/200905/05 Overview: Stefanie Powell RN Outpatient Cane Furniture MakerCommercial Door Installer number [phone] Fax number [phone] [facility] 11/08/2009 12/19/2012 Follow-up examination, lyndseyo wing other [...] as of this encounter (statuses as of 11/04/2023) Immunizations Name Administration Dates Next Due COVID-19 mRNA, LNP-s, No Pre serve, 2-Dose Series (YourNextLeap) 05/27/2021 COVID-19, LNP-s, No Preserve , Rodrick-sucrose, Ages 12+ (YourNextLeap) 02/03/2022 COVID-19, MRNA-LNP, 23-24, P F, 30 MCG/0.3 mL, 12 YRS AND ABOVE, IM (Unsilo-ComirnatGiving Assistant) 04/27/2023 Covid-19 Ad26, Single Dose (RingRang/J&J) 10/25/2020 Covid-19, Mrna, Lnp-s, Pf, B ivalent, 30 Mcg, IM, 12 yrs and above (YourNextLeap) 06/09/2022 H1N1 2009 Influenza, IM 08/02/2009 Pneumococcal [...] as of this encounter Progress Notes * Magda Reyes, him specialist - 11/04/2023 10:48 AM EDT Contacts Type Contact Phone/Fax 11/04/2023 10:47 AM EDT Phone (Outgoing) Shikha Ricks (Self) [phone] (H) Subjective Advised patient to contact Anticoagulation Clinic if any unusual bruising or bleeding, recent illness, changes in medication, or questions/concerns. PT/INR results, Coumadin dose instructions, and next PT/INR date communicated as noted by Pharmacist: Yes IVORY CAMARENA 11/04/2023, 10:48 AM * Cheryle Alvarado RPh - 11/04/2023 10:09 AM EDT Anticoagulation Clinic Current Lovenox Dose: 40mg daily due to Lovenox accumulation AntiXa level 0.65 (goal 0.6-1.0) Dose instructions: Lovenox 40mg daily Repeat antiXa level in 3 weeks on 11/23 with GML. Remind patient that labs must be drawn 4 hours after dose. RESHMA to contact patient with dose instructions as noted. Cheryle Alvarado RPh 11/04/23, 10:09 AM documented in this encounter Plan of Treatment Upcoming Encounters Date Type Department Care Team (Late st Contact Info) Description 11/24/2023 7:00 AM EDT Laboratory Lab Mobile Phlebotomy [facility] [address] [facility] [place] [address] Mv[facility], Gml Mobile Home Draw [address] [facility] [place] [address] 12/23/2023 2:00 PM EDT Office Visit [address] [place] [phone] Roly Sagastume [address] [place] [address] 01/19/2024 1:30 PM EDT Imaging Radiology [address] [place] [address] 04/28/2024 2:30 PM EDT Office Visit [address] [place] [phone] Madhuri Galicia, [address] [place] [address] 06/14/2024 1:00 PM EST Nurse Only Ancillary [address] [place] [address] [place], Nurse Annual [address] [place] [address] Health Maintenance Due Date Last Done Comments COLONOSCOPY-EVERY 5 YRS AGES 18-100 01/05/2018 01/05/2013, 01/05/2013, 06/03/2011, Additional history exists Diabetic Foot Exam 03/29/2020 03/29/2019, 0 03/03/2016, 01/08/2015, Additional history exists B-12 01/27/2024 01/26/2023, 10/18, 10/18/2020, Additional history exists CKD PHOS USE SMARTSET 86315 01/27/202401/16, 11/05/2021, 10/18/2020, Additional history exists Albumin/Creatinine Ratio 01/28/2024 023, 11/06/2021, 01/03/2020, Additional history exists Diabetic Eye Exam 02/20/2024 02/19/2023, , 11/23/2021, Additional history exists GFR 02/23/2024 08/25/2023, 07/19, 07/21/2023, Additional history exists HbA1c 02/23/2024 08/25/2023, 01/16, 07/15/2022, Additional history exists Depression Screening 06/08/2024 06/08/2023 CKD HGB USE SMARTSET 60490 07/28/202407/28, 07/21/2023, 06/17/2023, Additional history exists DXA Scan 12/02/2024 12/02/2022, 11/16, 02/11/2015, Additional history exists DTaP,Tdap,and Td Vaccines (3 - Td or Tdap) 04/26/2029 04/26/2019, 04/26/2019, 02/09/2008 Hepatitis C Screening Completed 01/20/2010, 010 Pneumococcal Vaccine: 65+ Years Completed 06/08/2016, 03/06/2015, 12/21/2014, Additional history exists Zoster Vaccines Completed 05/30/2019, 05/19, 03/29/2019, Additional history exists VITAMIN D LEVEL ONCE IN A LIFETIME-USE SMARTSET# [id number] Completed 01/26/2023, 01/03/2020, 04/22/2018, Additional history exists [...] this encounter Medical Devices Implanted Type Area Accounts Payable Associate Device Identifier Shelf Expiration Date Model / Serial / Lot Alloderm 2x4 Sheet [id number] - [id number] Implanted:Qty : 1 on 11/08/2009 at [place] [facility] [place] Tissue - Human N/A: Abdomen LIFE CELL AFIA 02/16/2011 [id number] / / [id number] Mesh 10 X 14 [id number] - [id number] Implanted:Qty : 1 on 02/02/2011 at [place] [facility] [place] N/A: Abdomen ATRIUM MEDICAL AFIA 01/03/2015 [id number] / / [id number] Pelvic Coil Implanted:Qty : 7 on 02/04/2011 at [place] [facility] [place] Left: Pelvis Sometrics / / [id number] Description:figure 8 Pelvic Coil 2 Implanted:Qty : 5 on 02/04/2011 at [place] [facility] [place] Left: Pelvis Sometrics / / [id number] Description:figure 8 documented as of this encounter Visit Diagnoses Diagnosis 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 No Full Code 01/18/2010 8:53 PM 01/30/2010 6:41 PM This o rder reflects the patients wishes and were consensually agreed upon. Question Answer Comments Discussion of Advance Directives occurred with: Patient Does the patient have a Living Will? No Does the patient have Health Care Power of Labeler? No Full Code 11/18/2009 11:54 AM 11/19/2009 4:09 PM This o rder reflects the patients wishes and were consensually agreed upon. Question Answer Comments Discussion of Advance Directives occurred with: Patient Does the patient have a Living Will? No Does the patient have Health Care Power of Labeler? No Full Code 11/13/2009 8:29 AM 11/14/2009 5:08 PM This order reflects the patients wishes and were consensually agreed upon. Care Teams Turf Manager Relationship Specialty Start Date End Date Madhuri Galicia DO [address] [place] [address] [place] [address] PCP - General Internal Medicine 02/16/17 documented as of this encounter
--- OUTSIDE RECORDS SUMMARY | 2023-11-22 08:55 | External Medical Summary ---
Author Name Unknown Address Unknown Organization K01:LABORATORY [facility] [place] - [facility] [address] [place] [address] Laboratory Report Ordering Provider Test Date Status CHRIS HODGE 11/03/2023 11:58:00 Final Please draw Heparin, Low Mol ecular Weight lab every 1-4 weeks or as requested by the [facility] Observation Date Value Abnormality Reference (Units ) Status LMW Heparin [Units/volume] in Platelet poor plasma by Chromogenic method 11/03/2023 11:58:00 0.65 Above high normal <0.10 (IU/mL) Final Low molecular weight heparin 's therapeutic range is 0.6 - 1.00 I.U./mL. Performing Location LABORATORY [facility] [place] - [address] [place] [address]
--- OUTSIDE RECORDS SUMMARY | 2023-11-22 08:56 | External Medical Summary | Summary of Care ---
Author Name Unknown Organization [facility] Address [address] [facility] [place] [address] Phone [phone] Care Team Providers Care Coating And Embossing Unit Operator Name Role Phone Madhuri Galicia DO Primary Care Provider Encounter Details Date Type Department Care Team (Late st Contact Info) Description 10/14/2023 Orders Only Pharmacy Call Center [phone] [place] [address] [facility] [phone] [place] [address] Recurrent acute deep vein thrombosis (DVT) of [...] less than 8.0% ([facility]) Use to test blood sugar [...] MANAGEMENT 11/18/200905/05 Overview: Stefanie Powell RN Outpatient Transfer ControllerChoker Hooker number [phone] Fax number [phone] Hypotension 11/08/2009 12/19/2012 Follow-up examination, follo wing [...] 02/17/2008 03/12/2017 Anticoagulation management encounter 02/17/2008 08/20/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 icoagulant therapy 02/17/2008 [...] mRNA, LNP-s, No Pre serve, 2-Dose Series ([employer]) 05/27/2021 COVID-19, LNP-s, No Preserve , Rodrick-sucrose, Ages 12+ ([employer]) 02/03/2022 COVID-19, MRNA-LNP, 23-24, P F, 30 MCG/0.3 mL, 12 YRS AND ABOVE, IM ([employer]) 04/27/2023 Covid-19 Ad26, Single Dose ([employer]J&J) 10/25/2020 Covid-19, Mrna, Lnp-s, Pf, B ivalent, 30 Mcg, IM, 12 yrs and above ([employer]) 06/09/2022 H1N1 2009 Influenza, IM 08/02/2009 [...] Care Team (Late st Contact Info) Description 12/23/2023 1:40 PM EDT Office Visit Family Medicine [address] [place] [phone] Roly Sagastume [address] [place] [address] 01/19/2024 1:30 PM EDT Imaging Radiology [address] [place] [address] 04/28/2024 2:30 PM EDT Office Visit Family Medicine [address] [place] [phone] Madhuri Galicia [address] [place] [address] 06/14/2024 1:00 PM EST Nurse Only Ancillary [address] [place] [address] [place], Nurse Annual [address] [place] [address] Scheduled Orders Name Type Priority Associated Diagnoses Orde r Schedule HEPARIN, LOW MOLECULAR WEIGHT Lab Routine 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) Other, Please specify in Comments field for 26 Occurrences starting 10/14/2023 until 10/13/2024 Health Maintenance Due Date Last Done Comments COLONOSCOPY-EVERY 5 YRS AGES 18-100 01/05/2018 01/05/2013, 01/05/2013, 06/03/2011, Additional history exists Diabetic Foot Exam 03/29/2020 03/29/2019, 0 03/03/2016, 01/08/2015, Additional history exists B-12 01/27/2024 01/26/2023, 10/18, 10/18/2020, Additional history exists CKD PHOS USE SMARTSET 64426 01/27/202401/16, 11/05/2021, 10/18/2020, Additional history exists Albumin/Creatinine Ratio 01/28/2024 023, 11/06/2021, 01/03/2020, Additional history exists Diabetic Eye Exam 02/20/2024 02/19/2023, , 11/23/2021, Additional history exists GFR 02/23/2024 08/25/2023, 07/19, 07/21/2023, Additional history exists HbA1c 02/23/2024 08/25/2023, 01/16, 07/15/2022, Additional history exists Depression Screening 06/08/2024 06/08/2023 CKD HGB USE SMARTSET 01877 07/28/202407/28, 07/21/2023, 06/17/2023, Additional history exists DXA Scan 12/02/2024 12/02/2022, 11/16, 02/11/2015, Additional history exists DTaP,Tdap,and Td Vaccines (3 - Td or Tdap) 04/26/2029 04/26/2019, 04/26/2019, 02/09/2008 Hepatitis C Screening Completed 01/20/2010, 010 Pneumococcal Vaccine: 65+ Years Completed 06/08/2016, 03/06/2015, 12/21/2014, Additional history exists Zoster Vaccines Completed 05/30/2019, 05/19, 03/29/2019, Additional history exists VITAMIN D LEVEL ONCE IN A LIFETIME-USE SMARTSET# [id number] Completed 01/26/2023, 01/03/2020, 04/22/2018, Additional history exists [...] this encounter Medical Devices Implanted Type Area Gear Lapper Device Identifier Shelf Expiration Date Model / Serial / Lot Alloderm 2x4 Sheet [id number] - [id number] Implanted:Qty : 1 on 11/08/2009 at [place] [facility] [place] [place] Tissue - Human N/A: Abdomen LIFE [employer]LL AFIA 02/16/2011 [id number] / / [id number] Mesh 10 X 14 [id number] - [id number] Implanted:Qty : 1 on 02/02/2011 at [place] [facility] [place] [place] N/A: Abdomen [employer] AFIA 01/03/2015 [id number] / / [id number] Pelvic Coil Implanted:Qty : 7 on 02/04/2011 at RADIOLOGY [facility] [place] [place] Left: Pelvis [employer] / / [id number] Description:figure 8 Pelvic Coil 2 Implanted:Qty : 5 on 02/04/2011 at RADIOLOGY [facility] [place] [place] Left: Pelvis [employer] / / [id number] Description:figure 8 documented as of this encounter Visit Diagnoses Diagnosis 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)- Primary documented in this encounter Advance Directives Documents on File Type Date Recorded Patient Tip Tester Expl anation Advance Directives and Livin g Will 09/29/2017 LIVING WILL Power of Fisher Troll Line 09/29/2017 POWER OF A TTORNEY Latest Code [...] the patient have Health Care Power of Fisher Troll Line? No Full Code 01/18/2010 8:53 PM 01/30/2010 6:41 PM This o rder reflects the patients wishes and were consensually agreed upon. Question Answer Comments Discussion of Advance Directives occurred with: Patient Does the patient have a Living Will? No Does the patient have Health Care Power of Fisher Troll Line? No Full Code 11/18/2009 11:54 AM 11/19/2009 4:09 PM This o rder reflects the patients wishes and were consensually agreed upon. Question Answer Comments Discussion of Advance Directives occurred with: Patient Does the patient have a Living Will? No Does the patient have Health Care Power of Fisher Troll Line? No Full Code 11/13/2009 8:29 AM 11/14/2009 5:08 PM This order reflects the patients wishes and were consensually agreed upon. Care Teams Coating And Embossing Unit Operator Relationship Specialty Start Date End Date Madhuri Galicia DO [address] [place] [address] [place] [address] PCP - General Internal Medicine 02/16/17 documented as of this encounter
--- OUTSIDE RECORDS SUMMARY | 2023-11-22 08:56 | External Medical Summary ---
Author Name Unknown Address Unknown Organization K01:LABORATORY [facility] [place] - [address] [place] [address] Laboratory Report Ordering Provider Test Date Status PARI COLLADO 10/13/2023 11:40:00 Final Observation Date Value Abnormality Reference (Units ) Status LMW Heparin [Units/volume] in Platelet poor plasma by Chromogenic method 10/13/2023 11:40:00 0.53 Above high normal <0.10 (IU/mL) Final Low molecular weight heparin 's therapeutic range is 0.6 - 1.00 I.U./mL. Performing Location LAB[facility]ATORY [facility] [place] - [address] [place] [address]
--- OUTSIDE RECORDS SUMMARY | 2023-11-22 08:56 | External Medical Summary | Summary of Care ---
Author Name Unknown Organization [facility] Address [address] [place] [address] Phone [phone] Care Team Providers Care Paragliding Instructor Name Role Phone Madhuri Galicia DO Primary Care Provider [phone] Reason for Visit * Reason Comments Dosage Adjustment Via Phone (anticoag Cl inic) Encounter Details Date Type Department Care Team (Latest Contact Info) Description 09/23/2023 6:15 AM EST Anticoagulation Pharmacy Call Center [phone] [place] [address] [facility] [address] [facility] [address] 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 06/08/16 States she does not have allergy to Ben inhibitors 03/29/2019 documented as of this encounter (statuses as of 09/23/2023) Medications Medication Sig Dispensed Refills Start Date [...] hemoglobin A1c goal of less than 8.0% ([facility]) Use to test blood [...] hemoglobin A1c goal of less than 8.0% ([facility]) Inject 1.5 mg under [...] 1 TABLET IN THE MORNING 90 Tablet 08/23/2023 Active Colestipol HCl 1 GM Oral Tablet (Colestid)Indicati ons:Hyperlipidemia with target LDL less than 70 Take 1 Tablet by mouth in the morning and 1 Tablet before bedtime. 180 Tablet 08/23/2023 Active metFORMIN HCl ER 500 MG Oral Tablet Extended Release 24 Hour (Glucophage XR)Indications:Typ e 2 diabetes mellitus with hemoglobin A1c goal of less than 8.0% ([facility]) Take 1 Tablet by mouth [...] accumulation or weight gain 30 Tablet 0 09/22/2023 Active documented as of this encounter (statuses as of 09/23/2023) Active Problems Problem Noted Date Diagnosed Date [...] as of this encounter (statuses as of 09/23/2023) Resolved Problems Problem Noted Date Diagnosed Date [...] MANAGEMENT 11/18/200905/05 Overview: Stefanie Powell RN Outpatient Cq DeveloperDurability Technician number [phone] Fax number [phone] Hypotension 11/08/2009 12/19/2012 Follow-up examination, jerel sarah [...] 02/17/2008 03/12/2017 Anticoagulation management encounter 02/17/2008 08/20/2008 remote computer terminal operator current use of ant icoagulant therapy [...] as of this encounter (statuses as of 09/23/2023) Immunizations Name Administration Dates Next Due COVID-19 mRNA, LNP-s, No Pre serve, 2-Dose Series ([employer]) 05/27/2021 COVID-19, LNP-s, No Preserve , Rodrick-sucrose, Ages 12+ ([employer]) 02/03/2022 COVID-19, MRNA-LNP, 23-24, P F, 30 MCG/0.3 mL, 12 YRS AND ABOVE, IM ([employer]) 04/27/2023 Covid-19 Ad26, Single Dose ([employer]J&J) 10/25/2020 Covid-19, Mrna, Lnp-s, Pf, B ivalent, 30 Mcg, IM, 12 yrs and above ([employer]) 06/09/2022 H1N1 2009 Influenza, IM 08/02/2009 Pneumococcal [...] as of this encounter Progress Notes * Albert Mcmahan, client associate - 09/23/2023 12:31 PM EST Patient Phone Numbers Spoke to Shikha via phone. Unusual Bruising or Bleeding : no Upcoming procedure: no Lovenox dose verified: compliant Labs were drawn ~ 4 hours after dose yes; compliant AntiXa results, Lovenox dose instructions, and next antiXa date communicated as noted by Pharmacist: Yes Pt asked if its possible that she can get Labs drawn at home for next Labs that are due. Advised I will sent message about request. Thank You, Albert Mcmahan [facility] (Formerly Telepharmacy) 09/23/2023, 12:31 PM * Cheryle Alvarado RPh - 09/23/2023 9:19 AM EST Anticoagulation Clinic Current Lovenox Dose: 40mg every 24 hours AntiXa level 0.64 (goal 0.6-1.0) Dose instructions: Lovenox CONTINUE 40mg every 24 hours Repeat antiXa level in 3 weeks on 10/12 at [facility] . Remind patient that labs must be drawn 4 hours after dose. RESHMA to contact patient with dose instructions as noted. Cheryle Alvarado RPh 09/23/23, 9:19 AM Electronically signed by Cheryle Alvarado [facility] at 09/23/2023 12:33 PM EST documented in this encounter Plan of Treatment Upcoming Encounters Date Type Department Care Team (Late st Contact Info) Description 12/23/2023 1:40 PM EDT Office Visit [address] [phone] Roly Sagastume [address] [place] [address] 01/19/2024 1:30 PM EDT Imaging Radiology [address] [place] [address] 04/28/2024 2:30 PM EDT Office [address] [phone] Madhuri Galicia[address] [place] [address] 06/14/2024 1:00 PM EST Nurse Only Ancillary [address] [place] [address] [place], Nurse Annual [address] [place] [address] Health Maintenance Due Date Last Done Comments COLONOSCOPY-EVERY 5 YRS AGES 18-100 01/05/2018 01/05/2013, 01/05/2013, 06/03/2011, Additional history exists Diabetic Foot Exam 03/29/2020 03/29/2019, 0 03/03/2016, 01/08/2015, Additional history exists B-12 01/27/2024 01/26/2023, 10/18, 10/18/2020, Additional history exists CKD PHOS USE SMARTSET 67978 01/27/202401/16, 11/05/2021, 10/18/2020, Additional history exists Albumin/Creatinine Ratio 01/28/2024 023, 11/06/2021, 01/03/2020, Additional history exists Diabetic Eye Exam 02/20/2024 02/19/2023, , 11/23/2021, Additional history exists GFR 02/23/2024 08/25/2023, 07/19, 07/21/2023, Additional history exists HbA1c 02/23/2024 08/25/2023, 01/16, 07/15/2022, Additional history exists Depression Screening 06/08/2024 06/08/2023 CKD HGB USE SMARTSET 69158 07/28/202407/28, 07/21/2023, 06/17/2023, Additional history exists DXA Scan 12/02/2024 12/02/2022, 11/16, 02/11/2015, Additional history exists DTaP,Tdap,and Td Vaccines (3 - Td or Tdap) 04/26/2029 04/26/2019, 04/26/2019, 02/09/2008 Hepatitis C Screening Completed 01/20/2010, 010 Pneumococcal Vaccine: 65+ Years Completed 06/08/2016, 03/06/2015, 12/21/2014, Additional history exists Zoster Vaccines Completed 05/30/2019, 05/19, 03/29/2019, Additional history exists VITAMIN D LEVEL ONCE IN A LIFETIME-USE SMARTSET# [id number] Completed 01/26/2023, 01/03/2020, 04/22/2018, Additional history exists [...] this encounter Medical Devices Implanted Type Area Full Stack Python Developer Device Identifier Shelf Expiration Date Model / Serial / Lot Alloderm 2x4 Sheet [id number] - [id number] Implanted:Qty : 1 on 11/08/2009 at [place] [facility] [place] Tissue - Human N/A: Abdomen LIFE CELL AFIA 02/16/2011 [id number] / / [id number] Mesh 10 X 14 [id number] - [id number] Implanted:Qty : 1 on 02/02/2011 at [facility] N/A: Abdomen [employer] AF[employer] 01/03/2015 [id number] / / [id number] Pelvic Coil Implanted:Qty : 7 on 02/04/2011 at RADIOLOGY [facility] [place] Left: Pelvis [employer] / / [id number] Description:figure 8 Pelvic Coil 2 Implanted:Qty : 5 on 02/04/2011 at RADIOLOGY [facility] [place] Left: Pelvis [employer] / / [id number] Description:figure 8 documented as of this encounter Visit Diagnoses Diagnosis 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)- Primary documented in this encounter Advance Directives Documents on File Type Date Recorded 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 No Full Code 01/18/2010 8:53 PM 01/30/2010 6:41 PM This o rder reflects the patients wishes and were consensually agreed upon. Question Answer Comments Discussion of Advance Directives occurred with: Patient Does the patient have a Living Will? No Does the patient have Health Care Power of [place]st[place] Crew Pusher? No Full Code 11/18/2009 11:54 AM 11/19/2009 4:09 PM This o rder reflects the patients wishes and were consensually agreed upon. Question Answer Comments Discussion of Advance Directives occurred with: Patient Does the patient have a Living Will? No Does the patient have Health Care Power of Roust[place] Crew Pusher? No Full Code 11/13/2009 8:29 AM 11/14/2009 5:08 PM This order reflects the patients wishes and were consensually agreed upon. Care Teams Paragliding Instructor Relationship Specialty Start Date End Date Madhuri Galicia DO [address] [place] [address] [place] [address] PCP - General Internal Medicine 02/16/17 documented as of this encounter
--- OUTSIDE RECORDS SUMMARY | 2023-11-22 08:56 | External Medical Summary | Summary of Care ---
Author Name Unknown Organization [facility] Address [address] [place] [address] Phone [phone] Care Team Providers Care Inspector Ball Points Name Role Phone Madhuri Galicia DO Primary Care Provider Reason for Visit * Reason Onset Date Comments Test Results Imaging Study 09/27/2023 Encounter Details Date Type Department Care Team (Late st Contact Info) Description 09/27/2023 Telephone Family Medicine [address] [place] [phone] Roly Sagastume [address] [address] Test Results Imaging Study Allergies Active Allergy Reactions Criticality Noted Date Comments Ben Inhibitors 12/05/2012 ARF- 2009 Stated that she does not have an allergy to Ben Inhibitors. 06/08/16 States she does not have allergy to Ben inhibitors 03/29/2019 documented as of this encounter (statuses as of 09/27/2023) Medications Medication Sig Dispensed Refills Start Date [...] hemoglobin A1c goal of less than 8.0% ([facility]) Use to test blood sugar once a [...] THE MORNING 90 Tablet 1 4 Active Enoxaparin Sodium 40 MG/0.4ML Injection Solution Prefilled Syringe (Lovenox) Inject 40 mg under the skin in the morning. As directed by anticoagulation clinic. 12 mL 1 4 Active Atorvastatin Calcium 20 MG [...] weight gain 30 Tablet 0 4 Active Furosemide 20 MG Oral Tablet (Lasix)Indication s:Edema of right lower leg Take 1 Tablet by mouth once a day on Wednesday, Wednesday, and Wednesday only. for fluid accumulation or weight gain 30 Tablet 0 4 09/27/19 24 Discontinu ed(Refill) documented as of this encounter (statuses as of 09/27/2023) Active Problems Problem Noted Date Diagnosed Date [...] as of this encounter (statuses as of 09/27/2023) Resolved Problems Problem Noted Date Diagnosed Date [...] MANAGEMENT 11/18/200905/05 Overview: Stefanie Powell RN Outpatient Chiropractic DoctorOptometric Technician number [phone] Fax number [phone] Hypotension 11/08/2009 12/19/2012 Follow-up examination, follo wing [...] as of this encounter (statuses as of 09/27/2023) Immunizations Name Administration Dates Next Due COVID-19 mRNA, LNP-s, No Pre serve, 2-Dose Series ([employer]) 05/27/2021 COVID-19, LNP-s, No Preserve , Rodrick-sucrose, Ages 12+ ([employer]) 02/03/2022 COVID-19, MRNA-LNP, 23-24, P F, 30 MCG/0.3 mL, 12 YRS AND ABOVE, IM ([employer]) 04/27/2023 Covid-19 Ad26, Single Dose ([employer]&[employer]) 10/25/2020 Covid-19, Mrna, Lnp-s, Pf, B ivalent, 30 Mcg, IM, 12 yrs and above ([employer]) 06/09/2022 H1N1 2009 Influenza, IM 08/02/2009 Pneumococcal [...] encounter Miscellaneous Notes * Telephone Encounter - Roly Sagastume CRNP - 09/27/2023 12:51 PM EDT US reviewed and presence of a subcutaneous hematoma which is a collection of blood under the skin. Recommend applying ice to the area to help reduce swelling. Blood will naturally reabsorb. If you develop and redness, swelling, or warmth to the area or if you develop any chest pain or shortness of breath please call the office or seek care immediately. Has not started Lasix yet because pharmacy told them there was no order. Verified order was in. Order resent to [facility] pharmacy. Recommend rechecking BMP in 1 week after starting the medication. documented in this encounter Plan of Treatment Upcoming Encounters Date Type Department Care Team (Late st Contact Info) Description 10/13/2023 9:00 AM EDT Laboratory Lab Mobile Phlebotomy [facility] [address] [place] [address] [facility], [facility] Mobile Home Draw [address] [place] [address] 10/14/2023 6:15 AM EDT Anticoagulation Pharmacy Call Center [address] [place] [address] [facility] [address] [place] [address] 12/23/2023 1:40 PM EDT Office Visit Family Medicine [address] [phone] Roly Sagastume CRNP [address] [place] [address] [place] [address] 01/19/2024 1:30 PM EDT Imaging Radiology [address] [place] [address] 04/28/2024 2:30 PM EDT Office Visit [address] [phone] Galicia, Madhuri Boyce[address] [place] [address] 06/14/2024 1:00 PM EST Nurse Only Ancillary [address] [place] [address] [place], Nurse Annual [address] [place] [address] Health Maintenance Due Date Last Done Comments COLONOSCOPY-EVERY 5 YRS AGES 18-100 01/05/2018 01/05/2013, 01/05/2013, 06/03/2011, Additional history exists Diabetic Foot Exam 03/29/2020 03/29/2019, 0 03/03/2016, 01/08/2015, Additional history exists B-12 01/27/2024 01/26/2023, 10/18, 10/18/2020, Additional history exists CKD PHOS USE SMARTSET 54216 01/27/202401/16, 11/05/2021, 10/18/2020, Additional history exists Albumin/Creatinine Ratio 01/28/2024 023, 11/06/2021, 01/03/2020, Additional history exists Diabetic Eye Exam 02/20/2024 02/19/2023, , 11/23/2021, Additional history exists GFR 02/23/2024 08/25/2023, 07/19, 07/21/2023, Additional history exists HbA1c 02/23/2024 08/25/2023, 01/16, 07/15/2022, Additional history exists Depression Screening 06/08/2024 06/08/2023 CKD HGB USE SMARTSET 39711 07/28/202407/28, 07/21/2023, 06/17/2023, Additional history exists DXA Scan 12/02/2024 12/02/2022, 11/16, 02/11/2015, Additional history exists DTaP,Tdap,and Td Vaccines (3 - Td or Tdap) 04/26/2029 04/26/2019, 04/26/2019, 02/09/2008 Hepatitis C Screening Completed 01/20/2010, 010 Pneumococcal Vaccine: 65+ Years Completed 06/08/2016, 03/06/2015, 12/21/2014, Additional history exists Zoster Vaccines Completed 05/30/2019, 05/19, 03/29/2019, Additional history exists VITAMIN D LEVEL ONCE IN A LIFETIME-USE SMARTSET# [id number] Completed 01/26/2023, 01/03/2020, 04/22/2018, Additional history exists [...] this encounter Medical Devices Implanted Type Area Product Marketing Coordinator Device Identifier Shelf Expiration Date Model / Serial / Lot Alloderm 2x4 Sheet [id number] - [id number] Implanted:Qty : 1 on 11/08/[address] [facility] Tissue - Human N/A: Abdomen LIFE CELL AFIA 02/16/2011 [id number] / / [id number] Mesh 10 X 14 [id number] - [id number] Implanted:Qty : 1 on 02/02/[address] [facility] N/A: Abdomen [employer] AFIA 01/03/2015 [id number] / / [id number] Pelvic Coil Implanted:Qty : 7 on 02/04/[address] [facility] Left: Pelvis [employer]koon / / [id number] Description:figure 8 Pelvic Coil 2 Implanted:Qty : 5 on 02/04/[address] [facility] Left: Pelvis [employer] / / [id number] Description:figure 8 documented as of this encounter Visit Diagnoses Diagnosis Edema of right lower leg documented in this encounter Advance Directives Documents on File Type Date Recorded Patient Management Development Specialist Expl anation Advance Directives and Vinh jones Will 09/29/2017 LIVING WILL Power of Hot Dip Tinning Supervisor 09/29/2017 POWER OF A TTORNEY Latest Code [...] the patient have Health Care Power of Hot Dip Tinning Supervisor? No Full Code 01/18/2010 8:53 PM 01/30/2010 6:41 PM This o rder reflects the patients wishes and were consensually agreed upon. Question Answer Comments Discussion of Advance Directives occurred with: Patient Does the patient have a Living Will? No Does the patient have Health Care Power of Hot Dip Tinning Supervisor? No Full Code 11/18/2009 11:54 AM 11/19/2009 4:09 PM This o rder reflects the patients wishes and were consensually agreed upon. Question Answer Comments Discussion of Advance Directives occurred with: Patient Does the patient have a Living Will? No Does the patient have Health Care Power of Hot Dip Tinning Supervisor? No Full Code 11/13/2009 8:29 AM 11/14/2009 5:08 PM This order reflects the patients wishes and were consensually agreed upon. Care Teams Inspector Ball Points Relationship Specialty Start Date End Date Madhuri Galicia DO [address] [place] [address] [place] [address] PCP - General Internal Medicine 02/16/17 documented as of this encounter
--- OUTSIDE RECORDS SUMMARY | 2023-11-22 08:56 | External Medical Summary | Summary of Care ---
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 Ki Comments Is Patient homebound? Yes All sections of this form must be filled out completely. Forms with missing or illegible information will be returned for completion. This form should not be modified in any way. Forms that have been modified will be returned. This form may not be submitted by a home health agency. It must be complete and submitted by the ordering provider. One full business day lead time is required and service will be scheduled based on the next service day for the [facility] Home Phlebotomy does not service every geographical location on a daily basis. Contact [facility] at to find out service days for a specific location. Medical Laboratory [address] [place] [id number] Jose David Meraz M.D. Director and Drug And Alcohol Counsellor Patient Name: Shikha Ricks : 1945 Sex: female Address [address] [place] [address] [place] [address] Provider: Gregory Nielsen MD? Madhuri Galicia, DO? Diagnosis: I82.401 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) (primary encounter diagnosis) Tests Requested AntiXa - as requested starting October 13, 2023 Electronically signed by Cheryle Alvarado [facility] at 09/23/2023 4:04 PM EST Reason for Visit * Reason Comments Dosage Adjustment Via Phone (anticoag Cl inic) Encounter Details Date Type Department Care Team (Latest Contact Info) Description 09/23/2023 6:15 AM EST Anticoagulation Pharmacy Call Center [address] [place] [address] [facility] [address] [facility] [place] [address] Recurrent acute deep vein thrombosis (DVT) of [...] A1c goal of less than 8.0% ([facility]) Use to test blood sugar once a [...] 30 min after taking tablet. 15 Tablet 08/23/2023 Active Allopurinol 100 MG Oral Tablet [...] Tablet before bedtime. 180 Tablet 08/23/2023 Active Metoprolol Tartrate 25 MG Oral [...] IN THE MORNING 90 Tablet 08/23/2023 Active Enoxaparin Sodium 40 MG/0.4ML Injection Solution Prefilled Syringe (Lovenox) Inject 40 mg under the skin in the morning. As directed by anticoagulation clinic. 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 Pt is unable to drive and requesting GML referral. GML is in patients area Wed &Fri. Repeat AntiXa level due 10/12. Cheryle Alvarado Rph, Pharm.D. Clinical Pharmacist [facility] ([facility]) (formerly Telepharmacy) [phone] 09/23/2023,4:04 PM * Martir, IVORY Vu - 09/23/2023 12:31 PM EST Patient Phone [...] message about request. Thank You, Albert Mcmahan [facility] Boat Loader II [facility] Services (Formerly Telepharmacy) 09/23/2023, 12:31 PM * Cheryle Alvarado RPh - 09/23/2023 9:19 AM EST Anticoagulation Clinic Current Lovenox Dose: 40mg every 24 hours AntiXa level 0.64 (goal 0.6-1.0) Dose instructions: Lovenox CONTINUE 40mg every 24 hours Repeat antiXa level in 3 weeks on 10/12 at [facility] . Remind patient that labs must be drawn 4 hours after dose. RESHMA to contact patient with dose instructions as noted. Cheryle Alvarado RPh 09/23/23, 9:19 AM documented in this encounter Miscellaneous Notes * Addendum Note - Cheryle Alvarado RPh - 09/23/2023 4:05 PM ESTAddended by: CHERYLE ALVARADO on: 09/23/2023 04:05 PM Modules accepted: Orders documented in this encounter Plan of Treatment Upcoming Encounters Date Type Department Care Team (Late st Contact Info) Description 10/14/2023 6:15 AM EDT Anticoagulation Pharmacy Call Center [address] [facility] [place] [address] [facility] [address] [facility] Moisés Mckinnon [place] [address] 12/23/2023 1:40 PM EDT Office Visit Family Medicine [address] [place] [phone] Roly Sagastume [address] [place] [address] 01/19/2024 1:30 PM EDT Imaging Radiology [address] [place] [address] 04/28/2024 2:30 PM EDT Office Visit [address] [place] [phone] [address] [place] [address] 06/14/2024 1:00 PM EST Nurse Only Ancillary [address] [place] [address] [place], Nurse [address] [place] [address] Scheduled Referrals Name Type Priority Associated Diagnoses Orde r Schedule HOME PHLEBOTOMY REFERRAL OP Referral Within 10 days (routine) 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) Ordered: 09/23/2023 Health Maintenance Due Date Last Done Comments COLONOSCOPY-EVERY 5 YRS AGES 18-100 01/05/2018 01/05/2013, 01/05/2013, 06/03/2011, Additional history exists Diabetic Foot Exam 03/29/2020 03/29/2019, 0 03/03/2016, 01/08/2015, Additional history exists B-12 01/27/2024 01/26/2023, 10/18, 10/18/2020, Additional history exists CKD PHOS USE SMARTSET 40166 01/27/202401/16, 11/05/2021, 10/18/2020, Additional history exists Albumin/Creatinine Ratio 01/28/2024 023, 11/06/2021, 01/03/2020, Additional history exists Diabetic Eye Exam 02/20/2024 02/19/2023, , 11/23/2021, Additional history exists GFR 02/23/2024 08/25/2023, 07/19, 07/21/2023, Additional history exists HbA1c 02/23/2024 08/25/2023, 01/16, 07/15/2022, Additional history exists Depression Screening 06/08/2024 06/08/2023 CKD HGB USE SMARTSET 14852 07/28/202407/28, 07/21/2023, 06/17/2023, Additional history exists DXA Scan 12/02/2024 12/02/2022, 11/16, 02/11/2015, Additional history exists DTaP,Tdap,and Td Vaccines (3 - Td or Tdap) 04/26/2029 04/26/2019, 04/26/2019, 02/09/2008 Hepatitis C Screening Completed 01/20/2010, 010 Pneumococcal Vaccine: 65+ Years Completed 06/08/2016, 03/06/2015, 12/21/2014, Additional history exists Zoster Vaccines Completed 05/30/2019, 05/19, 03/29/2019, Additional history exists VITAMIN D LEVEL ONCE IN A LIFETIME-USE SMARTSET# [id number] Completed 01/26/2023, 01/03/2020, 04/22/2018, Additional history exists [...] encounter Medical Devices Implanted Type Area Stone Engraver Device Identifier Shelf Expiration Date Model / Serial / Lot Alloderm 2x4 Sheet [id number] - [id number] Implanted:Qty : 1 on 11/08/2009 at OR [facility] Tissue - Human N/A: Abdomen LIFE CELL AFIA 02/16/2011 [id number] / / [id number] Mesh 10 X 14 [id number] - [id number] Implanted:Qty : 1 on 02/02/2011 at OR [facility] N/A: Abdomen [employer] AFIA 01/03/2015 [id number] / / [id number] Pelvic Coil Implanted:Qty : 7 on 02/04/2011 at RADIOLOGY [facility] Left: Pelvis [employer] / / [id number] Description:figure 8 Pelvic Coil 2 Implanted:Qty : 5 on 02/04/2011 at RADIOLOGY [facility] Left: Pelvis [employer] / / [id number] Description:figure 8 documented as of this encounter Visit Diagnoses Diagnosis 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)- Primary documented in this encounter Advance Directives Documents on File Type Date Recorded Patient Senior Advisory Expl anation Advance Directives and Livin g Will 09/29/2017 LIVING WILL Power of Acetylene Cutter 09/29/2017 POWER OF A TTORNEY Latest Code [...] the patient have Health Care Power of Acetylene Cutter? No Full Code 01/18/2010 8:53 PM 01/30/2010 6:41 PM This o rder reflects the patients wishes and were consensually agreed upon. Question Answer Comments Discussion of Advance Directives occurred with: Patient Does the patient have a Living Will? No Does the patient have Health Care Power of Acetylene Cutter? No Full Code 11/18/2009 11:54 AM 11/19/2009 4:09 PM This o rder reflects the patients wishes and were consensually agreed upon. Question Answer Comments Discussion of Advance Directives occurred with: Patient Does the patient have a Living Will? No Does the patient have Health Care Power of Acetylene Cutter? No Full Code 11/13/2009 8:29 AM 11/14/2009 5:08 PM This order reflects the patients wishes and were consensually agreed upon. Care Teams Wood And Wood Products Labourer Relationship Specialty Start Date End Date Madhuri Galicia DO [address] [place] [address] [place] [address] PCP - General Internal Medicine 02/16/17 documented as of this encounter
--- OUTSIDE RECORDS SUMMARY | 2023-11-22 08:57 | External Medical Summary | Summary of Care ---
Author Name Unknown Organization [facility] Address [address] [place] [facility] [place] [address] Phone [phone] Care Team Providers Care Mine Utility Operator Name Role Phone Madhuri Galicia DO Primary Care Provider Reason for Visit * Reason Comments Re-Check Encounter Details Date Type Department Care Team (Late st Contact Info) Description 09/21/2023 1:00 PM EST Office Visit Family Medicine [address] [place] [phone] Roly Sagastume [address] [place] [id number] Edema of right lower leg*; Skin lump of leg, right Allergies Active Allergy Reactions Criticality Noted Date Comments Ben Inhibitors 12/05/2012- 2009 Stated that she does not have an allergy to Ben Inhibitors. 06/08/16 States she does not have allergy to Ben inhibitors 03/29/2019 documented as of this encounter (statuses as of 09/21/2023) Medications Medication Sig Dispensed Refills Start Date [...] A1c goal of less than 8.0% ([facility]) Use to test blood sugar once a [...] A1c goal of less than 8.0% ([facility]) Inject 1.5 mg under the skin once [...] A1c goal of less than 8.0% ([facility]) Take 1 Tablet by mouth in the [...] as of this encounter (statuses as of 09/21/2023) Active Problems Problem Noted Date Diagnosed Date [...] as of this encounter (statuses as of 09/21/2023) Resolved Problems Problem Noted Date Diagnosed Date [...] MANAGEMENT 11/18/200905/05 Overview: Stefanie Powell RN Outpatient Assembly TechnicianDairy Farmworker number [phone] Fax number [phone] Hypotension 11/08/2009 12/19/2012 Follow-up examination, jerel sarah [...] 02/17/2008 03/12/2017 Anticoagulation management encounter 02/17/2008 08/20/2008 bed bug exterminator current use of ant icoagulant therapy [...] as of this encounter (statuses as of 09/21/2023) Immunizations Name Administration Dates Next Due COVID-19 mRNA, LNP-s, No Pre serve, 2-Dose Series ([employer]) 05/27/2021 COVID-19, LNP-s, No Preserve , Rodrick-sucrose, Ages 12+ ([employer]) 02/03/2022 COVID-19, MRNA-LNP, 23-24, P F, 30 MCG/0.3 mL, 12 YRS AND ABOVE, IM (LookIt-ComirnatHello Curry) 04/27/2023 Covid-19 Ad26, Single Dose (Nautit/J&J) 10/25/2020 Covid-19, Mrna, Lnp-s, Pf, B ivalent, 30 Mcg, IM, 12 yrs and above ([employer]) 06/09/2022 H1N1 2009 Influenza, IM 08/02/2009 Pneumococcal [...] Sign Reading Time Taken Comments Blood Pressure 108/72 09/21/2023 1:04 PM EST Pulse 88 09/21/2023 1:04 PM EST Temperature 35.8 C (96.4 F) 09/21/2023 1:04 PM ES T Respiratory Rate 16 09/21/2023 1:04 PM EST Oxygen Saturation 97% 09/21/2023 1:04 PM EST Inhaled Oxygen Concentration - - Weight 62.8 kg (138 lb 7 oz) 09/21/2023 1:04 PM EST Height - - Body Mass Index 23.76 06/30/2023 12:22 PM EST documented in this encounter Nursing Notes * Kenyatta Campbell LPN - 09/21/2023 1:01 PM EST 1 month recheck documented in this encounter Plan of Treatment Upcoming Encounters Date Type Department Care Team (Late st Contact Info) Description 09/22/2023 2:10 PM EST Laboratory Laboratory [address] [place] [phone] [place] [address] 09/22/2023 3:00 PM EST Imaging Radiology [address] [place] [address] 09/23/2023 6:15 AM EST Anticoagulation Pharmacy Call Center [phone] [facility] [place] [address] [facility] 58 60 [facility] [place] [address] 12/23/2023 1:40 PM EDT Office Visit [address] [place] [phone] Roly Sagastume [address] [place] [address] 01/19/2024 1:30 PM EDT Imaging Radiology [address] [place] [address] 04/28/2024 2:30 PM EDT Office Visit [address] [place] [phone] Madhuri Galicia [address] [place] [address] 06/14/2024 1:00 PM EST Nurse Only Ancillary [address] [place] [address] [place], Nurse [address] [place] [address] Scheduled Orders Name Type Priority Associated Diagnoses Orde r Schedule US EXTREMITY, NON-VASCULAR LIMITED Medical Imaging Routine Skin lump of leg, right Expected: 09/22/2023, Expires: 10/21/2024 BASIC METABOLIC PANEL Lab Routine Edema of right lower leg Expected: 09/28/2023 (Approximate), Expires: 09/20/2024 Health Maintenance Due Date Last Done Comments COLONOSCOPY-EVERY 5 YRS AGES 18-100 01/05/2018 01/05/2013, 01/05/2013, 06/03/2011, Additional history exists Diabetic Foot Exam 03/29/2020 03/29/2019, 0 03/03/2016, 01/08/2015, Additional history exists B-12 01/27/2024 01/26/2023, 10/18, 10/18/2020, Additional history exists CKD PHOS USE SMARTSET 29839 01/27/202401/16, 11/05/2021, 10/18/2020, Additional history exists Albumin/Creatinine Ratio 01/28/2024 023, 11/06/2021, 01/03/2020, Additional history exists Diabetic Eye Exam 02/20/2024 02/19/2023, , 11/23/2021, Additional history exists GFR 02/23/2024 08/25/2023, 07/19, 07/21/2023, Additional history exists HbA1c 02/23/2024 08/25/2023, 01/16, 07/15/2022, Additional history exists Depression Screening 06/08/2024 06/08/2023 CKD HGB USE SMARTSET 46094 07/28/202407/28, 07/21/2023, 06/17/2023, Additional history exists DXA Scan 12/02/2024 12/02/2022, 11/16, 02/11/2015, Additional history exists DTaP,Tdap,and Td Vaccines (3 - Td or Tdap) 04/26/2029 04/26/2019, 04/26/2019, 02/09/2008 Hepatitis C Screening Completed 01/20/2010, 010 Pneumococcal Vaccine: 65+ Years Completed 06/08/2016, 03/06/2015, 12/21/2014, Additional history exists Zoster Vaccines Completed 05/30/2019, 05/19, 03/29/2019, Additional history exists VITAMIN D LEVEL ONCE IN A LIFETIME-USE SMARTSET# [id number] Completed 01/26/2023, 01/03/2020, 04/22/2018, Additional history exists [...] this encounter Medical Devices Implanted Type Area Distillery Supervisor Device Identifier Shelf Expiration Date Model / Serial / Lot Alloderm 2x4 Sheet [id number] - [id number] Implanted:Qty : 1 on 11/08/2009 [place] [facility] [place] - Human N/A: Abdomen Gracenote 02/16/2011 [id number] / / [id number] Mesh 10 X 14 [id number] - [id number] Implanted:Qty : 1 on 02/02/2011 [place] [facility] [place] N/A: Abdomen [employer] 01/03/2015 [id number] / / [id number] Pelvic Coil Implanted:Qty : 7 on 02/04/2011 at [place] [facility] [place] Left: Pelvis [employer] / / [id number] Description:figure 8 Pelvic Coil 2 Implanted:Qty : 5 on 02/04/2011 at [place] [facility] [place] Left: Pelvis [employer] / / [id number] Description:figure 8 documented as of this encounter Visit Diagnoses Diagnosis Edema of right lower leg- Primary Skin lump of leg, right documented in this encounter Advance Directives Documents on File Type Date Recorded Patient Disability Manager Expl anation Advance Directives and Vinh g Will 09/29/2017 LIVING WILL Power of Fiber Product Cutting Machine Operator 09/29/2017 POWER OF A TTORNEY [...] the patient have Health Care Power of Fiber Product Cutting Machine Operator? No Full Code 01/18/2010 8:53 PM 01/30/2010 6:41 PM This o rder reflects the patients wishes and were consensually agreed upon. Question Answer Comments Discussion of Advance Directives occurred with: Patient Does the patient have a Living Will? No Does the patient have Health Care Power of Fiber Product Cutting Machine Operator? No Full Code 11/18/2009 11:54 AM 11/19/2009 4:09 PM This o rder reflects the patients wishes and were consensually agreed upon. Question Answer Comments Discussion of Advance Directives occurred with: Patient Does the patient have a Living Will? No Does the patient have Health Care Power of Fiber Product Cutting Machine Operator? No Full Code 11/13/2009 8:29 AM 11/14/2009 5:08 PM This order reflects the patients wishes and were consensually agreed upon. Care Teams Mine Utility Operator Relationship Specialty Start Date End Date Madhuri Galicia DO [address] [place] [address] [place] [address] PCP - General Internal Medicine 02/16/17 documented as of this encounter
--- OUTSIDE RECORDS SUMMARY | 2023-11-22 08:57 | External Medical Summary ---
Author Name Unknown Address Unknown Organization K01:LAB[facility]ATORY [facility] [place] - [address] [place] [address] Laboratory Report Ordering Provider Test Date Status PARI COLLADO 09/22/2023 14:29:56 Final Observation Date Value Abnormality Reference (Units ) Status LMW Heparin [Units/volume] in Platelet poor plasma by Chromogenic method 09/22/2023 14:29:56 0.64 Above high normal <0.10 (IU/mL) Final Low molecular weight heparin 's therapeutic range is 0.6 - 1.00 I.U./mL. Performing Location [facility]ATORY [facility] - [address] [place] [id number]
--- OUTSIDE RECORDS SUMMARY | 2023-11-22 08:57 | External Medical Summary | Summary of Care ---
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 06/08/16 States she does not have allergy to Ben inhibitors 03/29/2019 documented as of this encounter (statuses as of 09/22/2023) Medications Medication Sig Dispensed Refills Start Date [...] A1c goal of less than 8.0% ([facility]) Use to test blood sugar [...] A1c goal of less than 8.0% ([facility]) Inject 1.5 mg under the [...] A1c goal of less than 8.0% ([facility]) Take 1 Tablet by mouth in [...] as of this encounter (statuses as of 09/22/2023) Active Problems Problem Noted Date Diagnosed Date [...] as of this encounter (statuses as of 09/22/2023) Resolved Problems Problem Noted Date Diagnosed Date [...] MANAGEMENT 11/18/200905/05 Overview: Stefanie Powell RN Outpatient Pepper PickerEngine Turner number [phone] Fax number [phone] Hypotension 11/08/2009 12/19/2012 Follow-up examination, jerel sarah [...] 02/17/2008 03/12/2017 Anticoagulation management encounter 02/17/2008 08/20/2008 penitentiary current use of ant icoagulant therapy 02/17/2008 [...] as of this encounter (statuses as of 09/22/2023) Immunizations Name Administration Dates Next Due COVID-19 mRNA, LNP-s, No Pre serve, 2-Dose Series ([employer]) 05/27/2021 COVID-19, LNP-s, No Preserve , Rodrick-sucrose, Ages 12+ ([employer]) 02/03/2022 COVID-19, MRNA-LNP, 23-24, P F, 30 MCG/0.3 mL, 12 YRS AND ABOVE, IM (DeepFlex-ComirnatGiftbar) 04/27/2023 Covid-19 Ad26, Single Dose (Sonopia/J&J) 10/25/2020 Covid-19, Mrna, Lnp-s, Pf, B ivalent, 30 Mcg, IM, 12 yrs and above ([employer]) 06/09/2022 H1N1 2009 Influenza, IM 08/02/2009 Pneumococcal [...] Upcoming Encounters Date Type Department Care Team (Latest Contact Info) Description 09/22/2023 3:00 PM EST Imaging Radiology [address] [place] [address] Skin lump of leg, right 09/23/2023 6:15 AM EST Anticoagulation Pharmacy Call Center [phone] [place] [address] [facility] 58 60 [facility] [place] [address] 12/23/2023 1:40 PM EDT Office Visit Family [address] [place] [phone] Roly Sagastume [address] [place] [address] 01/19/2024 1:30 PM EDT Imaging Radiology [address] [place] [address] 04/28/2024 2:30 PM EDT Office Visit [address] [place] [phone] Madhuri Galicia[address] [place] [address] 06/14/2024 1:00 PM EST Nurse Only Ancillary [address] [place] [address] [place], Nurse Annual [facility]ness [address] [place] [address] [place] [address] Pending Results Name Type Priority Associated Diagnoses Date /Time HEPARIN, LOW MOLECULAR WEIGHT Lab Routine 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) Anticoagulation management encounter 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 09/22/2023 2:29 PM EST Health Maintenance Due Date Last Done Comments COLONOSCOPY-EVERY 5 YRS AGES 18-100 01/05/2018 01/05/2013, 01/05/2013, 06/03/2011, Additional history exists Diabetic Foot Exam 03/29/2020 03/29/2019, 0 03/03/2016, 01/08/2015, Additional history exists B-12 01/27/2024 01/26/2023, 10/18, 10/18/2020, Additional history exists CKD PHOS USE SMARTSET 01273 01/27/202401/16, 11/05/2021, 10/18/2020, Additional history exists Albumin/Creatinine Ratio 01/28/2024 023, 11/06/2021, 01/03/2020, Additional history exists Diabetic Eye Exam 02/20/2024 02/19/2023, , 11/23/2021, Additional history exists GFR 02/23/2024 08/25/2023, 07/19, 07/21/2023, Additional history exists HbA1c 02/23/2024 08/25/2023, 01/16, 07/15/2022, Additional history exists Depression Screening 06/08/2024 06/08/2023 CKD HGB USE SMARTSET 94722 07/28/202407/28, 07/21/2023, 06/17/2023, Additional history exists DXA Scan 12/02/2024 12/02/2022, 11/16, 02/11/2015, Additional history exists DTaP,Tdap,and Td Vaccines (3 - Td or Tdap) 04/26/2029 04/26/2019, 04/26/2019, 02/09/2008 Hepatitis C Screening Completed 01/20/2010, 010 Pneumococcal Vaccine: 65+ Years Completed 06/08/2016, 03/06/2015, 12/21/2014, Additional history exists Zoster Vaccines Completed 05/30/2019, 05/19, 03/29/2019, Additional history exists VITAMIN D LEVEL ONCE IN A LIFETIME-USE SMARTSET# [id number] Completed 01/26/2023, 01/03/2020, 04/22/2018, Additional history exists [...] this encounter Medical Devices Implanted Type Area Science Instructor Device Identifier Shelf Expiration Date Model / Serial / Lot Alloderm 2x4 Sheet [id number] - [id number] [place]planted:Q[place] : 1 [place] [facility] [place] N/A: Abdomen LIFE CELL [employer]IA 02/16/2011 [id number] / / [id number] Mesh 10 X 14 [id number] - [id number] Implanted:Qty : 1 [place]02[place] [facility] [place]A: Abdomen [employer] 01/03/2015 [id number] / / [id number] Pelvic Coil Implanted:Qty : 7 on 02[place]04/[place] [facility] [place]: Pelvis [employer] / / [id number] Description:figure 8 Pelvic Coil 2 Implanted:Qty : 5 [place] 02[place]04/[place] [facility] [place]: Pelvis [employer] / / [id number] Description:figure 8 documented as of this encounter Visit Diagnoses Diagnosis 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) Anticoagulation management encounter Encounter for therapeutic drug monitoring [facility] current use of anticoagulant therapy Skin lump of leg, right documented in this encounter Advance Directives Documents on File Type Date Recorded 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 No Full Code 01/18/2010 8:53 PM 01/30/2010 6:41 PM This o rder reflects the patients wishes and were consensually agreed upon. Question Answer Comments Discussion of Advance Directives occurred with: Patient Does the patient have a Living Will? No Does the patient have Health Care Power of Photogrammetric Tech? No Full Code 11/18/2009 11:54 AM 11/19/2009 4:09 PM This o rder reflects the patients wishes and were consensually agreed upon. Question Answer Comments Discussion of Advance Directives occurred with: Patient Does the patient have a Living Will? No Does the patient have Health Care Power of Photogrammetric Tech? No Full Code 11/13/2009 8:29 AM 11/14/2009 5:08 PM This order reflects the patients wishes and were consensually agreed upon. Care Teams Stitch Bonding Machine Drawer In Relationship Specialty Start Date End Date Madhuri Galicia DO [address] [place] [address] [place] [address] PCP - General Internal Medicine 02/16/17 documented as of this encounter
--- OUTSIDE RECORDS SUMMARY | 2023-11-22 08:57 | External Medical Summary | Summary of Care ---
Author Name Unknown Organization [facility] Address [address] [facility] [place] [address] Phone [phone] Care Team Providers Care Registered Veterinary Technician Name Role Phone Madhuri Galicia DO Primary Care Provider [phone] Reason for Referral * Evaluate & Treat - Unlimited Visits (Within 10 days (routine)) - Authorized Specialty Diagnoses / Procedures Referred By Contprosper t Referred To Contact Hematology/Oncology / Hematology Oncology Diagnoses Primary hypercoagulable state (HCC) Cierra Vail PA-C [address] [place] [address] [place] [address] Referral ID Status Reason Start Date Expiration Date Visits Requested Visits Authorized [id number] Authorized Specialty Services Required 06/18/[phone] Question Answer Referral Priority Within 10 days (routine) Where should this appointment be scheduled? [facility] Reason for Referral Thrombosis/Bruising/Abnormal Coagulation Comments New DVT in RLE - already on eliquis and taking regularly. Reason for Visit * Reason Onset Date Comments Medication Administration 06/18/2023 Referral 06/18/2023 Encounter Details Date Type Department Care Team (Late st Contact Info) Description 06/18/2023 Telephone Family Medicine [address] [place] [phone] Madhuri Galicia DO [address] [place] [address] [place] [address] Medication Administration; Referral Allergies Active Allergy Reactions Criticality Noted Date Comments Ben Inhibitors 12/05/2012 ARF- 2009 Stated that she does not have an allergy to Ben Inhibitors. 06/08/16 States she does not have allergy to Ben inhibitors 03/29/2019 documented as of this encounter (statuses as of 09/17/2023) Medications Medication Sig Dispensed Refills Start Date [...] a week. 6 mL 3 3 Active Olmesartan Medoxomil 5 MG Oral Tablet Take 5 mg by mouth in the morning and 5 mg before bedtime. 0 1 08/23/19 24 Discontinued(Ref ill) Apixaban 5 MG Oral Tablet (Eliquis)Indicati ons:Nonrheumatic aortic valve stenosis Take 1 Tablet by mouth in the morning and 1 Tablet before bedtime. 180 Tablet 3 2 07/01/20 23 Discontinued Colestipol HCl 1 GM Oral Tablet (Colestid) Take 1 Tablet by mouth in the morning and 1 Tablet before bedtime. 180 Tablet 3 2 08/23/19 24 Discontinued(Ref ill) Alendronate Sodium 70 MG Oral Tablet (Fosamax) Take 1 Tablet by mouth once a week. with 8 oz. water 30 minutes before first meal of the day. Remain upright for 30 min after taking tablet. 5 Tablet 3 08/23/19 24 Discontinued(Ref ill) Allopurinol 100 MG Oral Tablet (Zyloprim)Indicat ions:Gout TAKE 1 TABLET IN THE MORNING 90 Tablet 3 3 08/23/19 24 Discontinued(Ref ill) metFORMIN HCl ER 500 MG Oral Tablet Extended Release 24 Hour (Glucophage XR)Indications:Ty pe 2 diabetes mellitus with hemoglobin A1c goal of less than 8.0% (HCC) Take 1 Tablet by mouth in the morning and 1 Tablet before bedtime. 180 Tablet 3 3 08/23/19 24 Discontinued(Ref ill) Pantoprazole Sodium 20 MG Oral Tablet Delayed Release (Protonix) TAKE 1 TABLET IN THE MORNING 90 Tablet 1 3 08/23/19 24 Discontinued(Ref ill) Metoprolol Tartrate 25 MG Oral Tablet (Lopressor) Take 1 Tablet by mouth in the morning and 1 Tablet before bedtime. 180 Tablet 3 08/23/19 24 Discontinued(Ref ill) Cephalexin 500 MG Oral CapsuleIndication s:Suspected urinary tract infection Take 1 Capsule by mouth in the morning and 1 Capsule before bedtime. Do all this for 7 days. 14 Capsule 0 3 08/23/19 24 Discontinued(Pat ient preference/disco ntinuation) documented as of this encounter (statuses as of 09/17/2023) Active Problems Problem Noted Date Diagnosed Date [...] as of this encounter (statuses as of 09/17/2023) Resolved Problems Problem Noted Date Diagnosed Date [...] MANAGEMENT 11/18/200905/05 Overview: Stefanie Powell RN Outpatient Spreader Box OperatorHigh School Counselor number [phone] Fax number [phone] Hypotension 11/08/2009 12/19/2012 Follow-up examination, follo wing [...] as of this encounter (statuses as of 09/17/2023) Immunizations Name Administration Dates Next Due COVID-19 mRNA, LNP-s, No Pre serve, 2-Dose Series ([employer]) 05/27/2021 COVID-19, LNP-s, No Preserve , Rodrick-sucrose, Ages 12+ ([employer]) 02/03/2022 COVID-19, MRNA-LNP, 23-24, P F, 30 MCG/0.3 mL, 12 YRS AND ABOVE, IM ([employer]-Comirnaty) 04/27/2023 Covid-19 Ad26, Single Dose (Doculynx/J&J) 10/25/2020 Covid-19, Mrna, Lnp-s, Pf, B ivalent, [...] encounter Miscellaneous Notes * Telephone Encounter - Ruba Felix RN - 06/22/2023 4:26 PM EST Pt states her leg is about the same, advised of below, she is willing to see hematology. Crystal pleaseschedule pt REBECA * Telephone Encounter - Cierra Vail PA-C - 06/18/2023 10:26 AM EST Sounds like she is probably taking her eliquis, as directed. Talked with Dr. Galicia today. Would like to get her in to see hematology. See how pt is doing. Is the leg swelling worse? Any chest pain orSOB? If so, please go to ER. Hematology ref in. * Telephone Encounter - Kenyatta Campbell LPN - 06/18/2023 9:32 AM EST I called [facility] to check when patient last refilled the Eliquis. Last shipment that was sent to pt was 02/01/2023. documented in this encounter Plan of Treatment Upcoming Encounters Date Type Department Care Team (Late st Contact Info) Description 09/21/2023 1:00 PM EST Office Visit Family Medicine [address] [place] [phone] Roly Sagastume [address] [place] [address] 09/22/2023 2:10 PM EST Laboratory Laboratory [address] [place] [phone] [place] [address] 09/23/2023 6:15 AM EST Anticoagulation Pharmacy Call Center [phone] [place] [phone] [facility] [address] [facility] [place] [address] 01/19/2024 1:30 PM EDT Imaging Radiology [address] [place] [address] 06/14/2024 1:00 PM EST Nurse Only Ancillary [address] [place] [address] [place], Nurse [address] [place] [address] Scheduled Referrals Name Type Priority Associated Diagnoses Orde r Schedule HEMATOLOGY/ONCOLOG Y REFERRAL OP Referral Within 10 days (routine) Primary hypercoagulable state (HCC) Ordered: 06/18/2023 Health Maintenance Due Date Last Done Comments COLONOSCOPY-EVERY 5 YRS AGES 18-100 01/05/2018 01/05/2013, 01/05/2013, 06/03/2011, Additional history exists Diabetic Foot Exam 03/29/2020 03/29/2019, 0 03/03/2016, 01/08/2015, Additional history exists B-12 01/27/2024 01/26/2023, 10/18, 10/18/2020, Additional history exists CKD PHOS USE SMARTSET 96300 01/27/202401/16, 11/05/2021, 10/18/2020, Additional history exists Albumin/Creatinine Ratio 01/28/2024 023, 11/06/2021, 01/03/2020, Additional history exists Diabetic Eye Exam 02/20/2024 02/19/2023, , 11/23/2021, Additional history exists GFR 02/23/2024 08/25/2023, 07/19, 07/21/2023, Additional history exists HbA1c 02/23/2024 08/25/2023, 01/16, 07/15/2022, Additional history exists Depression Screening 06/08/2024 06/08/2023 CKD HGB USE SMARTSET 21787 07/28/202407/28, 07/21/2023, 06/17/2023, Additional history exists DXA Scan 12/02/2024 12/02/2022, 11/16, 02/11/2015, Additional history exists DTaP,Tdap,and Td Vaccines (3 - Td or Tdap) 04/26/2029 04/26/2019, 04/26/2019, 02/09/2008 Hepatitis C Screening Completed 01/20/2010, 010 Pneumococcal Vaccine: 65+ Years Completed 06/08/2016, 03/06/2015, 12/21/2014, Additional history exists Zoster Vaccines Completed 05/30/2019, 05/19, 03/29/2019, Additional history exists VITAMIN D LEVEL ONCE IN A LIFETIME-USE SMARTSET# [id number] Completed 01/26/2023, 01/03/2020, 04/22/2018, Additional history exists [...] this encounter Medical Devices Implanted Type Area Fashion Styling Intern Device Identifier Shelf Expiration Date Model / Serial / Lot Alloderm 2x4 Sheet [id number] - [id number] Implanted:Qty : 1 on 11/08/[address] [facility] [place] Tissue - Human N/A: Abdomen LIFE CELL AFIA 02/16/2011 [id number] / / [id number] Mesh 10 X 14 [id number] - [id number] Implanted:Qty : 1 on 02/02/[address] [facility] [place] N/A: Abdomen [employer] AF[employer] 01/03/2015 [id number] / / [id number] Pelvic Coil Implanted:Qty : 7 on 02/04/[address] [facility] [place] Left: Pelvis MeetBall / / [id number] Description:figure 8 Pelvic Coil 2 Implanted:Qty : 5 on 02/04/[address] [facility] [place] Left: Pelvis MeetBall / / [id number] Description:figure 8 documented as of this encounter Visit Diagnoses Diagnosis Primary hypercoagulable state (HCC)- Primary Primary hypercoagulable state documented in this encounter Advance Directives Documents on File Type Date Recorded Patient Vehicle Body Maker Expl anation Advance Directives and Livin g Will 09/29/2017 LIVING WILL Power of Inker 09/29/2017 POWER OF A TTORNEY Latest Code [...] the patient have Health Care Power of Inker? No Full Code 01/18/2010 8:53 PM 01/30/2010 6:41 PM This o rder reflects the patients wishes and were consensually agreed upon. Question Answer Comments Discussion of Advance Directives occurred with: Patient Does the patient have a Living Will? No Does the patient have Health Care Power of Inker? No Full Code 11/18/2009 11:54 AM 11/19/2009 4:09 PM This o rder reflects the patients wishes and were consensually agreed upon. Question Answer Comments Discussion of Advance Directives occurred with: Patient Does the patient have a Living Will? No Does the patient have Health Care Power of Inker? No Full Code 11/13/2009 8:29 AM 11/14/2009 5:08 PM This order reflects the patients wishes and were consensually agreed upon. Care Teams Registered Veterinary Technician Relationship Specialty Start Date End Date Madhuri Galicia DO [address] [place] [address] [place] [phone] PCP - General Internal Medicine 02/16/17 documented as of this encounter
--- OUTSIDE RECORDS SUMMARY | 2023-11-22 08:58 | External Medical Summary | Summary of Care ---
Author Name Unknown Organization [facility] Address [address] [facility] [place] [address] Phone [phone] Care Team Providers Care Ground Operations Superintendent Name Role Phone Madhuri Galicia DO Primary Care Provider Reason for Visit * Reason Comments Dosage Adjustment Via Phone (anticoag Cl inic) Encounter Details Date Type Department Care Team (Latest Contact Info) Description 08/26/2023 7:00 AM EST Anticoagulation Pharmacy, [address] [place] [address] [place] [address] 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 06/08/16 States she does not have allergy to Ben inhibitors 03/29/2019 documented as of this encounter (statuses as of 08/26/2023) Medications Medication Sig Dispensed Refills Start Date [...] hemoglobin A1c goal of less than 8.0% ([facility]) Use to test blood sugar [...] hemoglobin A1c goal of less than 8.0% ([facility]) Take 1 Tablet by mouth [...] anticoagulation clinic. 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 icoagulant therapy 02/17/2008 [...] as of this encounter (statuses as of 08/26/2023) Immunizations Name Administration Dates Next Due COVID-19 mRNA, LNP-s, No Pre serve, 2-Dose Series ([employer]) 05/27/2021 COVID-19, LNP-s, No Preserve , Rodrick-sucrose, Ages 12+ ([employer]) 02/03/2022 COVID-19, MRNA-LNP, 23-24, P F, 30 MCG/0.3 mL, 12 YRS AND ABOVE, IM (Istpika-GrazeirMister Mario) 04/27/2023 Covid-19 Ad26, Single Dose (Kidlandia/Farmeron&Farmeron) 10/25/2020 Covid-19, Mrna, Lnp-s, Pf, B ivalent, 30 Mcg, IM, 12 yrs and above ([employer]) 06/09/2022 H1N1 2009 Influenza, IM 08/02/2009 Pneumococcal [...] Progress Notes * Augusta Kessler RPh - 08/26/2023 9:41 AM EST Patient Phone Numbers Current Lovenox Dose: 40mg daily Latest Reference Range & Units 08/25/23 12:18 Heparin, Low Molecular Weight <0.10 IU/mL 0.75 (H) (H): Data is abnormally high Spoke to patient and spouse. Instructed to continue current dose of 40mg daily. Will plan to then recheck x1 week and transfer over to telepharmacy team. Lovenox Dose: 40mg daily Augusta Kessler RPh, PharmD Clinical Pharmacist - Global Climate Change Analyst Medication Therapy [facility] 08/26/2023, 9:42 AM [phone] documented in this encounter Plan of Treatment Upcoming Encounters Date Type Department Care Team (Late st Contact Info) Description 09/02/2023 6:15 AM EST Anticoagulation Pharmacy Call Center [phone] [place] [phone] [facility] [address] [facility] [place] [address] 09/21/2023 1:00 PM EST Office Visit Family Medicine [address] [place] [phone] Roly Sagastume [address] [place] [address] 01/19/2024 1:30 PM EDT Imaging Radiology [address] [place] [address] 06/14/2024 1:00 PM EST Nurse Only Ancillary [address] [place] [address] [place], Nurse Annual [address] [place] [address] Health Maintenance Due Date Last Done Comments Hepatitis B (1 of 3 - Risk 3-dose series) 2007 COLONOSCOPY-EVERY 5 YRS AGES 18-100 01/05/2018 01/05/2013, 01/05/2013, 06/03/2011, Additional history exists Diabetic Foot Exam 03/29/2020 03/29/2019, 0 03/03/2016, 01/08/2015, Additional history exists B-12 01/27/2024 01/26/2023, 10/18, 10/18/2020, Additional history exists CKD PHOS USE SMARTSET 07224 01/27/202401/16, 11/05/2021, 10/18/2020, Additional history exists Albumin/Creatinine Ratio 01/28/2024 023, 11/06/2021, 01/03/2020, Additional history exists Diabetic Eye Exam 02/20/2024 02/19/2023, , 11/23/2021, Additional history exists GFR 02/23/2024 08/25/2023, 07/19, 07/21/2023, Additional history exists HbA1c 02/23/2024 08/25/2023, 01/16, 07/15/2022, Additional history exists Depression Screening 06/08/2024 06/08/2023 CKD HGB USE SMARTSET 58416 07/28/202407/28, 07/21/2023, 06/17/2023, Additional history exists DXA Scan 12/02/2024 12/02/2022, 11/16, 02/11/2015, Additional history exists DTaP,Tdap,and Td Vaccines (3 - Td or Tdap) 04/26/2029 04/26/2019, 04/26/2019, 02/09/2008 Hepatitis C Screening Completed 01/20/2010, 010 Pneumococcal Vaccine: 65+ Years Completed 06/08/2016, 03/06/2015, 12/21/2014, Additional history exists Zoster Vaccines Completed 05/30/2019, 05/19, 03/29/2019, Additional history exists VITAMIN D LEVEL ONCE IN A LIFETIME-USE SMARTSET# [id number] Completed 01/26/2023, 01/03/2020, 04/22/2018, Additional history exists [...] this encounter Medical Devices Implanted Type Area Newspaper Editor Device Identifier Shelf Expiration Date Model / Serial / Lot Alloderm 2x4 Sheet [id number] - [id number] Implanted:Qty : 1 on 11/08/2009 [place] [facility] [place] Tissue - Human N/A: Abdomen Veoh 02/16/2011 [id number] / / [id number] Mesh 10 X 14 [id number] - [id number] Implanted:Qty : 1 on 02/02/2011 at [place] [facility] [place] N/A: Abdomen [employer] AFIA 01/03/2015 [id number] / / [id number] Pelvic Coil 2 Implanted:Qty : 5 on 02/04/2011 at RADIOLOGY [facility] [place] Left: Pelvis [employer] / / [id number] Description:figure 8 documented as of this encounter Visit Diagnoses Diagnosis 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)- Primary documented in this encounter Advance Directives Documents on File Type Date Recorded Patient Histologic Technician Expl anation Advance Directives and Livin g Will 09/29/2017 LIVING WILL Power of Town Planner 09/29/2017 POWER OF A TTORNEY Latest Code [...] the patient have Health Care Power of Town Planner? No Full Code 01/18/2010 8:53 PM 01/30/2010 6:41 PM This o rder reflects the patients wishes and were consensually agreed upon. Question Answer Comments Discussion of Advance Directives occurred with: Patient Does the patient have a Living Will? No Does the patient have Health Care Power of Town Planner? No Full Code 11/18/2009 11:54 AM 11/19/2009 4:09 PM This o rder reflects the patients wishes and were consensually agreed upon. Question Answer Comments Discussion of Advance Directives occurred with: Patient Does the patient have a Living Will? No Does the patient have Health Care Power of Town Planner? No Full Code 11/13/2009 8:29 AM 11/14/2009 5:08 PM This order reflects the patients wishes and were consensually agreed upon. Care Teams Ground Operations Superintendent Relationship Specialty Start Date End Date Madhuri Galicia DO [address] [place] [address] [place] [phone] PCP - General Internal Medicine 02/16/17 documented as of this encounter
--- OUTSIDE RECORDS SUMMARY | 2023-11-22 08:58 | External Medical Summary | Summary of Care ---
Author Name Unknown Organization [facility] Address [address] [place] [address] Phone [phone] Care Team Providers Care Water Pollution Scientist Name Role Phone Madhuri Galicia DO Primary Care Provider [phone] Reason for Visit * Reason Comments Dosage Adjustment Via Phone (anticoag Cl inic) Encounter Details Date Type Department Care Team (Latest Contact Info) Description 09/09/2023 6:15 AM EST Anticoagulation Pharmacy Call Center [phone] [place] [phone] 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 06/08/16 States she does not have allergy to Ben inhibitors 03/29/2019 documented as of this encounter (statuses as of 09/09/2023) Medications Medication Sig Dispensed Refills Start Date [...] hemoglobin A1c goal of less than 8.0% ([facility]) Use to test blood sugar [...] hemoglobin A1c goal of less than 8.0% ([facility]) Inject 1.5 mg under the [...] hemoglobin A1c goal of less than 8.0% ([facility]) Take 1 Tablet by mouth [...] the morning. 30 Tablet 5 08/27/2023 Active documented as of this encounter (statuses as of 09/09/2023) Active Problems Problem Noted Date Diagnosed Date [...] as of this encounter (statuses as of 09/09/2023) Resolved Problems Problem Noted Date Diagnosed Date [...] MANAGEMENT 11/18/200905/05 Overview: Stefanie Powell RN Outpatient Robotic TechnicianPatent Litigation Associate number [phone] Fax number [phone] Hypotension 11/08/2009 12/19/2012 [facility] 11/08/2009 12/19/2012 Diaphragmatic hernia [...] 02/17/2008 03/12/2017 Anticoagulation management encounter 02/17/2008 08/20/2008 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 therapy [...] as of this encounter (statuses as of 09/09/2023) Immunizations Name Administration Dates Next Due COVID-19 mRNA, LNP-s, No Pre serve, 2-Dose Series ([employer]) 05/27/2021 COVID-19, LNP-s, No Preserve , Rodrick-sucrose, Ages 12+ (ActionFlow) 02/03/2022 COVID-19, MRNA-LNP, 23-24, P F, 30 MCG/0.3 mL, 12 YRS AND ABOVE, IM ([employer]Forge-ComirnatThink-Now) 04/27/2023 Covid-19 Ad26, Single Dose ([employer]/J&J) 10/25/2020 Covid-19, Mrna, Lnp-s, Pf, B ivalent, 30 Mcg, IM, 12 yrs and above ([employer]) 06/09/2022 H1N1 2009 Influenza, IM 08/02/2009 Pneumococcal [...] as of this encounter Progress Notes * Aleyda Kiser, machine set up - 09/09/2023 12:02 PM EST Contacts Type Contact Phone/Fax 09/09/2023 12:01 PM EST Phone (Outgoing) Shikha Ricks (Self) [phone] (H) Spoke to Patient Patient Phone Numbers Spoke to patient via phone. Unusual Bruising or Bleeding : no Upcoming procedure: no Lovenox dose verified: compliant Labs were drawn ~ 4 hours after dose YES AntiXa results, Lovenox dose instructions, and next antiXa date communicated as noted by Pharmacist: Yes Thank you, Aleyda Kiser [employer] [facility] ([facility]) (Formerly Telepharmacy) 09/09/2023,12:03 PM * Kendal Currie [facility] - 09/09/2023 9:16 AM EST Anticoagulation Clinic Current Lovenox Dose: 40 mg daily AntiXa level 0.74 (goal 0.6-1.0) at 12:09 PM Dose instructions: Lovenox 40 mg daily Repeat antiXa level in 2 weeks on 09/22/23 at [facility]. Remind patient that labs must be drawn 4 hours after dose. RESHMA to contact patient with dose instructions as noted. Kendal Currie sugar 09/09/23, 9:16 AM documented in this encounter Plan of Treatment Upcoming Encounters Date Type Department Care Team (Late st Contact Info) Description 09/21/2023 1:00 PM EST Office Visit Family Medicine [address] [place] [phone] Roly Sagastume [address] [place] [address] 01/19/2024 1:30 PM EDT Imaging Radiology [address] [place] [address] 06/14/2024 1:00 PM EST Nurse Only Ancillary [address] [place] [address] Daniella, Nurse Annual [address] [place] [address] Health Maintenance Due Date Last Done Comments COLONOSCOPY-EVERY 5 YRS AGES 18-100 01/05/2018 01/05/2013, 01/05/2013, 06/03/2011, Additional history exists Diabetic Foot Exam 03/29/2020 03/29/2019, 0 03/03/2016, 01/08/2015, Additional history exists B-12 01/27/2024 01/26/2023, 10/18, 10/18/2020, Additional history exists CKD PHOS USE SMARTSET 91223 01/27/202401/16, 11/05/2021, 10/18/2020, Additional history exists Albumin/Creatinine Ratio 01/28/2024 023, 11/06/2021, 01/03/2020, Additional history exists Diabetic Eye Exam 02/20/2024 02/19/2023, , 11/23/2021, Additional history exists GFR 02/23/2024 08/25/2023, 07/19, 07/21/2023, Additional history exists HbA1c 02/23/2024 08/25/2023, 01/16, 07/15/2022, Additional history exists Depression Screening 06/08/2024 06/08/2023 CKD HGB USE SMARTSET 56537 07/28/202407/28, 07/21/2023, 06/17/2023, Additional history exists DXA Scan 12/02/2024 12/02/2022, 11/16, 02/11/2015, Additional history exists DTaP,Tdap,and Td Vaccines (3 - Td or Tdap) 04/26/2029 04/26/2019, 04/26/2019, 02/09/2008 Hepatitis C Screening Completed 01/20/2010, 010 Pneumococcal Vaccine: 65+ Years Completed 06/08/2016, 03/06/2015, 12/21/2014, Additional history exists Zoster Vaccines Completed 05/30/2019, 05/19, 03/29/2019, Additional history exists VITAMIN D LEVEL ONCE IN A LIFETIME-USE SMARTSET# [id number] Completed 01/26/2023, 01/03/2020, 04/22/2018, Additional history exists [...] this encounter Medical Devices Implanted Type Area Surface Logging Systems Logger Device Identifier Shelf Expiration Date Model / Serial / Lot Alloderm 2x4 Sheet [id number] - [id number] Implanted:Qty : 1 on 11/08/2009 at [place] [facility] [place] Tissue - Human N/A: Abdomen LIFE CELL AFIA 02/16/2011 [id number] / / [id number] Mesh 10 X 14 [id number] - [id number] Implanted:Qty : 1 on 02/02/2011 at [facility] N/A: Abdomen A[employer]IUM [employer] AFIA 01/03/2015 [id number] / / [id number] Pelvic Coil Implanted:Qty : 7 on 02/04/2011 at RADIOLOGY [facility] [place] Left: Pelvis POWWOW / / [id number] Description:figure 8 Pelvic Coil 2 Implanted:Qty : 5 on 02/04/2011 at RAD[facility]OLOGY [facility] [place] Left: Pelvis POWWOW / / [id number] Description:figure 8 documented as of this encounter Visit Diagnoses Diagnosis 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)- Primary documented in this encounter Advance Directives Documents on File Type Date Recorded Patient 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 No Full Code 01/18/2010 8:53 PM 01/30/2010 6:41 PM This o rder reflects the patients wishes and were consensually agreed upon. Question Answer Comments Discussion of Advance Directives occurred with: Patient Does the patient have a Living Will? No Does the patient have Health Care Power of School Librarian? No Full Code 11/18/2009 11:54 AM 11/19/2009 4:09 PM This o rder reflects the patients wishes and were consensually agreed upon. Question Answer Comments Discussion of Advance Directives occurred with: Patient Does the patient have a Living Will? No Does the patient have Health Care Power of School Librarian? No Full Code 11/13/2009 8:29 AM 11/14/2009 5:08 PM This order reflects the patients wishes and were consensually agreed upon. Care Teams Water Pollution Scientist Relationship Specialty Start Date End Date Madhuri Galicia DO [address] [place] [address] [place] [address] PCP - General Internal Medicine 02/16/17 documented as of this encounter
--- OUTSIDE RECORDS SUMMARY | 2023-11-22 08:58 | External Medical Summary | Summary of Care ---
Author Name Unknown Organization [facility] Address [address] [place] [address] Phone [phone] Care Team Providers Care Life Skills Coach Name Role Phone Madhuri Galicia DO Primary Care Provider [phone] Reason for Visit * Reason Onset Date Comments Encounter Created in Error 08/30/2023 Encounter Details Date Type Department Care Team (Late st Contact Info) Description 08/30/2023 Refill Family Medicine [address] [place] [phone] Madhuri Galicia [address] [place] [address] Hyperlipidemia with target LDL less than 70 Allergies Active Allergy Reactions Criticality Noted Date Comments Ben Inhibitors 12/05/2012- 2009 Stated that she does not have an allergy to Ben Inhibitors. 06/08/16 States she does not have allergy to Ben inhibitors 03/29/2019 documented as of this encounter (statuses as of 08/30/2023) Medications Medication Sig Dispensed Refills Start Date [...] goal of less than 8.0% ([facility]) Use to test blood sugar once [...] as of this encounter (statuses as of 08/30/2023) Active Problems Problem Noted Date Diagnosed Date [...] as of this encounter (statuses as of 08/30/2023) Resolved Problems Problem Noted Date Diagnosed Date [...] MANAGEMENT 11/18/200905/05 Overview: Stefanie Powell RN Outpatient Water Use InspectorPartner Integration Planner number [phone] Fax number [phone] Hypotension 11/08/2009 12/19/2012 Follow-up examination, follo wing [...] 03/12/2017 Anticoagulation management encounter 02/17/2008 08/20/2008 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 02/17/2008 [...] as of this encounter (statuses as of 08/30/2023) Immunizations Name Administration Dates Next Due COVID-19 mRNA, LNP-s, No Pre serve, 2-Dose Series ([facility]) 05/27/2021 COVID-19, LNP-s, No Preserve , Rodrick-sucrose, Ages 12+ ([facility]) 02/03/2022 COVID-19, MRNA-LNP, 23-24, P F, 30 MCG/0.3 mL, 12 YRS AND ABOVE, IM (Tiltap-ComirnatiMICROQ) 04/27/2023 Covid-19 Ad26, Single Dose (MYOS/J&CoverItLive) 10/25/2020 Covid-19, Mrna, Lnp-s, Pf, B ivalent, 30 Mcg, IM, 12 yrs and above ([facility]) 06/09/2022 H1N1 2009 Influenza, IM 08/02/2009 Pneumococcal [...] AM EST Anticoagulation Pharmacy Call Center [phone] [facility] [place] [address] [facility] 58 60 [facility] [place] [address] 09/21/2023 1:00 PM EST Office Visit Family Medicine [address] [place] [phone] Roly Sagastume CRNP [address] [place] [address] [place] [address] 01/19/2024 1:30 PM EDT Imaging Radiology [address] [place] [address] 06/14/2024 1:00 PM EST Nurse Only Ancillary [address] [place] [address] [place], Nurse Annual [address] [place] [address] Health Maintenance Due Date Last Done Comments Hepatitis B (1 of 3 - Risk 3-dose series) 2007 COLONOSCOPY-EVERY 5 YRS AGES 18-100 01/05/2018 01/05/2013, 01/05/2013, 06/03/2011, Additional history exists Diabetic Foot Exam 03/29/2020 03/29/2019, 0 03/03/2016, 01/08/2015, Additional history exists B-12 01/27/2024 01/26/2023, 10/18, 10/18/2020, Additional history exists CKD PHOS USE SMARTSET 02715 01/27/202401/16, 11/05/2021, 10/18/2020, Additional history exists Albumin/Creatinine Ratio 01/28/2024 023, 11/06/2021, 01/03/2020, Additional history exists Diabetic Eye Exam 02/20/2024 02/19/2023, , 11/23/2021, Additional history exists GFR 02/23/2024 08/25/2023, 07/19, 07/21/2023, Additional history exists HbA1c 02/23/2024 08/25/2023, 01/16, 07/15/2022, Additional history exists Depression Screening 06/08/2024 06/08/2023 CKD HGB USE SMARTSET 77220 07/28/202407/28, 07/21/2023, 06/17/2023, Additional history exists DXA Scan 12/02/2024 12/02/2022, 11/16, 02/11/2015, Additional history exists DTaP,Tdap,and Td Vaccines (3 - Td or Tdap) 04/26/2029 04/26/2019, 04/26/2019, 02/09/2008 Hepatitis C Screening Completed 01/20/2010, 010 Pneumococcal Vaccine: 65+ Years Completed 06/08/2016, 03/06/2015, 12/21/2014, Additional history exists Zoster Vaccines Completed 05/30/2019, 05/19, 03/29/2019, Additional history exists VITAMIN D LEVEL ONCE IN A LIFETIME-USE SMARTSET# 11545 Completed 01/26/2023, 01/03/2020, 04/22/2018, Additional history exists [...] this encounter Medical Devices Implanted Type Area Online Editor Device Identifier Shelf Expiration Date Model / Serial / Lot Alloderm 2x4 Sheet [id number] - [id number] Implanted:Qty : 1 on 11/08/2009 at OR [facility] [place] Tissue - Human N/A: Abdomen LIFE CELL AFIA 02/16/2011 [id number] / / [id number] Mesh 10 X 14 [id number] - [id number] Implanted:Qty : 1 on 02/02/2011 at OR [facility] [place] N/A: Abdomen A[employer] AFIA 01/03/2015 [id number] 0 / / [id number] Pelvic Coil 2 Implanted:Qty : 5 on 02/04/2011 at RADIOLOGY [facility] [place] Left: Pelvis ChromaDex / / [id number] Description:figure 8 documented as of this encounter Visit Diagnoses Diagnosis Hyperlipidemia with target LDL less than 70 Other and unspecified hyperlipidemia documented in this encounter Advance Directives Documents on File Type Date Recorded Patient Paper Tester Expl anation Advance Directives and Vinh jones Will 09/29/2017 LIVING WILL Power of Pneumatic Press Hand 09/29/2017 POWER OF A TTORNEY Latest [...] the patient have Health Care Power of Pneumatic Press Hand? No Full Code 01/18/2010 8:53 PM 01/30/2010 6:41 PM This o rder reflects the patients wishes and were consensually agreed upon. Question Answer Comments Discussion of Advance Directives occurred with: Patient Does the patient have a Living Will? No Does the patient have Health Care Power of Pneumatic Press Hand? No Full Code 11/18/2009 11:54 AM 11/19/2009 4:09 PM This o rder reflects the patients wishes and were consensually agreed upon. Question Answer Comments Discussion of Advance Directives occurred with: Patient Does the patient have a Living Will? No Does the patient have Health Care Power of Pneumatic Press Hand? No Full Code 11/13/2009 8:29 AM 11/14/2009 5:08 PM This order reflects the patients wishes and were consensually agreed upon. Care Teams Life Skills Coach Relationship Specialty Start Date End Date Madhuri Galicia DO [address] [place] [address] [place] [address] PCP - General Internal Medicine 02/16/17 documented as of this encounter
--- OUTSIDE RECORDS SUMMARY | 2023-11-22 08:58 | External Medical Summary | Summary of Care ---
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 06/08/16 States she does not have allergy to Ben inhibitors 03/29/2019 documented as of this encounter (statuses as of 09/01/2023) Medications Medication Sig Dispensed Refills Start Date [...] goal of less than 8.0% ([facility]) Use to test blood sugar once a [...] goal of less than 8.0% ([facility]) Inject 1.5 mg under the skin once [...] goal of less than 8.0% ([facility]) Take 1 Tablet by mouth in the [...] as of this encounter (statuses as of 09/01/2023) Active Problems Problem Noted Date Diagnosed Date [...] as of this encounter (statuses as of 09/01/2023) Resolved Problems Problem Noted Date Diagnosed Date [...] goal 07/06/201201/03 Pain in right foot 03/08/2012 06/03/201 3 Pain in right wrist 09/10/2011 12/20/19 [...] MANAGEMENT 11/18/200905/05 Overview: Stefanie Powell RN Outpatient Supervisor HeadingWheelman number [phone] Fax number [phone] Hypotension 11/08/2009 12/19/2012 Follow-up examination, follo wing [...] 02/17/2008 03/12/2017 Anticoagulation management encounter 02/17/2008 08/20/2008 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 02/17/2008 [...] as of this encounter (statuses as of 09/01/2023) Immunizations Name Administration Dates Next Due COVID-19 mRNA, LNP-s, No Pre serve, 2-Dose Series ([employer]) 05/27/2021 COVID-19, LNP-s, No Preserve , Rodrick-sucrose, Ages 12+ (Writer.ly) 02/03/2022 COVID-19, MRNA-LNP, 23-24, P F, 30 MCG/0.3 mL, 12 YRS AND ABOVE, IM ([facility] LabsnatFMS [place]) 04/27/2023 Covid-19 Ad26, Single Dose ([employer]/J&DreamHeart) 10/25/2020 Covid-19, Mrna, Lnp-s, Pf, B ivalent, 30 Mcg, IM, 12 yrs and above (Writer.ly) 06/09/2022 H1N1 2009 Influenza, IM 08/02/2009 Pneumococcal [...] Call Center WB [phone] [place] [address] [facility] 58 60 [facility] [place] [address] 09/21/2023 1:00 PM EST Office Visit Family Medicine [facility] [address] [place] [address] [place] [phone] Roly Sagastume CRNP [address] [place] [address] [place] [address] 01/19/2024 1:30 PM EDT Imaging Radiology [address] [place] [address] 06/14/2024 1:00 PM EST Nurse Only Ancillary [address] [place] [address] [place], Nurse [address] [place] [address] Pending Results Name Type Priority Associated Diagnoses Date /Time HEPARIN, LOW MOLECULAR WEIGHT Lab Routine 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) Anticoagulation management encounter 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 of anticoagulant therapy 09/01/2023 2:10 PM EST Health Maintenance Due Date Last Done Comments Hepatitis B (1 of 3 - Risk 3-dose series) 2007 COLONOSCOPY-EVERY 5 YRS AGES 18-100 01/05/2018 01/05/2013, 01/05/2013, 06/03/2011, Additional history exists Diabetic Foot Exam 03/29/2020 03/29/2019, 0 03/03/2016, 01/08/2015, Additional history exists B-12 01/27/2024 01/26/2023, 10/18, 10/18/2020, Additional history exists CKD PHOS USE SMARTSET 69817 01/27/202401/16, 11/05/2021, 10/18/2020, Additional history exists Albumin/Creatinine Ratio 01/28/2024 023, 11/06/2021, 01/03/2020, Additional history exists Diabetic Eye Exam 02/20/2024 02/19/2023, , 11/23/2021, Additional history exists GFR 02/23/2024 08/25/2023, 07/19, 07/21/2023, Additional history exists HbA1c 02/23/2024 08/25/2023, 01/16, 07/15/2022, Additional history exists Depression Screening 06/08/2024 06/08/2023 CKD HGB USE SMARTSET 84733 07/28/202407/28, 07/21/2023, 06/17/2023, Additional history exists DXA Scan 12/02/2024 12/02/2022, 11/16, 02/11/2015, Additional history exists DTaP,Tdap,and Td Vaccines (3 - Td or Tdap) 04/26/2029 04/26/2019, 04/26/2019, 02/09/2008 Hepatitis C Screening Completed 01/20/2010, 010 Pneumococcal Vaccine: 65+ Years Completed 06/08/2016, 03/06/2015, 12/21/2014, Additional history exists Zoster Vaccines Completed 05/30/2019, 05/19, 03/29/2019, Additional history exists VITAMIN D LEVEL ONCE IN A LIFETIME-USE SMARTSET# 35490 Completed 01/26/2023, 01/03/2020, 04/22/2018, Additional history exists [...] this encounter Medical Devices Implanted Type Area Weaver Needle Loom Device Identifier Shelf Expiration Date Model / Serial / Lot Alloderm 2x4 Sheet [id number] - [id number] Implanted:Qty : 1 on 11/08/2009 at OR [facility] [place] Tissue - Human N/A: Abdomen LIFE CELL AFIA 02/16/2011 [id number] / / [id number] Mesh 10 X 14 [id number] - [id number] Implanted:Qty : 1 on 02/02/2011 at OR [facility] [place] N/A: Abdomen A[employer]IUM MED[employer] AFIA 01/03/2015 [id number] / / [id number] Pelvic Coil 2 Implanted:Qty : 5 on 02/04/2011 at RADIOLOGY [facility] [place] Left: Pelvis [employer] / / [id number] Description:figure 8 documented as of this encounter Visit Diagnoses Diagnosis 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) Anticoagulation management encounter Encounter for therapeutic drug monitoring long-term current use of anticoagulant therapy documented in this encounter Advance Directives Documents on File Type Date Recorded Patient Telecommunications Manager Expl anation Advance Directives and Vinh g Will 09/29/2017 LIVING WILL Power of Chemistry Quality Control Analyst 09/29/2017 POWER OF A TTORNEY Latest [...] the patient have Health Care Power of Chemistry Quality Control Analyst? No Full Code 01/18/2010 8:53 PM 01/30/2010 6:41 PM This o rder reflects the patients wishes and were consensually agreed upon. Question Answer Comments Discussion of Advance Directives occurred with: Patient Does the patient have a Living Will? No Does the patient have Health Care Power of Chemistry Quality Control Analyst? No Full Code 11/18/2009 11:54 AM 11/19/2009 4:09 PM This o rder reflects the patients wishes and were consensually agreed upon. Question Answer Comments Discussion of Advance Directives occurred with: Patient Does the patient have a Living Will? No Does the patient have Health Care Power of Chemistry Quality Control Analyst? No Full Code 11/13/2009 8:29 AM 11/14/2009 5:08 PM This order reflects the patients wishes and were consensually agreed upon. Care Teams Circulating Process Inspector Relationship Specialty Start Date End Date Madhuri Galicia DO [address] [place] [address] [place] [address] PCP - General Internal Medicine 02/16/17 documented as of this encounter
--- OUTSIDE RECORDS SUMMARY | 2023-11-22 08:58 | External Medical Summary | Summary of Care ---
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 06/08/16 States she does not have allergy to Ben inhibitors 03/29/2019 documented as of this encounter (statuses as of 09/02/2023) Medications Medication Sig Dispensed Refills Start Date [...] as of this encounter (statuses as of 09/02/2023) Active Problems Problem Noted Date Diagnosed Date [...] as of this encounter (statuses as of 09/02/2023) Resolved Problems Problem Noted Date Diagnosed Date [...] MANAGEMENT 11/18/200905/05 Overview: Stefanie Powell RN Outpatient Software Support SpecialistScientist/Engineer number [phone] Fax number [phone] Hypotension 11/08/2009 12/19/2012 [facility] other surgery 11/08/2009 12/19/2012 Diaphragmatic hernia [...] 02/17/2008 03/12/2017 Anticoagulation management encounter 02/17/2008 08/20/2008 buttermaker helper current use of ant icoagulant therapy 02/17/2008 [...] as of this encounter (statuses as of 09/02/2023) Immunizations Name Administration Dates Next Due COVID-19 mRNA, LNP-s, No Pre serve, 2-Dose Series (Pet360) 05/27/2021 COVID-19, LNP-s, No Preserve , Rodrick-sucrose, Ages 12+ (Pet360) 02/03/2022 COVID-19, MRNA-LNP, 23-24, P F, 30 MCG/0.3 mL, 12 YRS AND ABOVE, IM (RED - [employer] Dist[employer]-ComirnatAmpio Pharmaceuticals) 04/27/2023 Covid-19 Ad26, Single Dose (Plurality/J&J) 10/25/2020 Covid-19, Mrna, Lnp-s, Pf, B ivalent, 30 Mcg, IM, 12 yrs and above (Pet360) 06/09/2022 H1N1 2009 Influenza, IM 08/02/2009 Pneumococcal [...] as of this encounter Progress Notes * Ragini Juares form tamping machine operator - 09/02/2023 1:50 PM EST Patient Phone Numbers Spoke to Shikha via phone. Unusual Bruising or Bleeding : no Upcoming procedure: no Lovenox dose verified: compliant Labs were drawn ~ 4 hours after dose yes; 14:10 PM AntiXa results, Lovenox dose instructions, and next antiXa date communicated as noted by Pharmacist: Yes Thank you, Ragini Juares Calciner Operator [facility]) 09/02/2023,1:50 PM * Cheryle Alvarado [facility] - 09/02/2023 10:09 AM EST Anticoagulation Clinic Current Lovenox Dose: 40mg daily (changed to daily due to lovenox accumulation) AntiXa level 0.76 (goal 0.6-1.0) Dose instructions: Lovenox CONTINUE 40mg every 24 hours Repeat antiXa level in 1 weeks on 09/08 at [facility]. Remind patient that labs must be drawn 4 hoursafter dose. Serum creatinine: 1.1 mg/dL (H) 08/25/23 1218 Estimated creatinine clearance: 41.4 mL/min (A) RESHMA to contact patient with dose instructions as noted. Cheryle Alvarado [facility] 09/02/23, 10:09 AM documented in this encounter Plan of Treatment Upcoming Encounters Date Type Department Care Team (Late st Contact Info) Description 09/08/2023 2:10 PM EST Laboratory Laboratory [address] [place] [phone] [place], Lab [address] [place] [address] 09/09/2023 6:15 AM EST Anticoagulation Pharmacy Call Center [phone] [facility] [place] [phone] [facility] 58 60 [facility] [place] [address] 09/21/2023 1:00 PM EST Office Visit Family Medicine [address] [place] [phone] Roly Sagastume [address] [place] [address] 01/19/2024 1:30 PM EDT Imaging Radiology [address] [place] [address] 06/14/2024 1:00 PM EST Nurse Only Ancillary [address] [place] [address] [place], Nurse [address] [place] [address] Health Maintenance Due Date Last Done Comments Hepatitis B (1 of 3 - Risk 3-dose series) 2007 COLONOSCOPY-EVERY 5 YRS AGES 18-100 01/05/2018 01/05/2013, 01/05/2013, 06/03/2011, Additional history exists Diabetic Foot Exam 03/29/2020 03/29/2019, 0 03/03/2016, 01/08/2015, Additional history exists B-12 01/27/2024 01/26/2023, 10/18, 10/18/2020, Additional history exists CKD PHOS USE SMARTSET 15572 01/27/202401/16, 11/05/2021, 10/18/2020, Additional history exists Albumin/Creatinine Ratio 01/28/2024 023, 11/06/2021, 01/03/2020, Additional history exists Diabetic Eye Exam 02/20/2024 02/19/2023, , 11/23/2021, Additional history exists GFR 02/23/2024 08/25/2023, 07/19, 07/21/2023, Additional history exists HbA1c 02/23/2024 08/25/2023, 01/16, 07/15/2022, Additional history exists Depression Screening 06/08/2024 06/08/2023 CKD HGB USE SMARTSET 64461 07/28/202407/28, 07/21/2023, 06/17/2023, Additional history exists DXA Scan 12/02/2024 12/02/2022, 11/16, 02/11/2015, Additional history exists DTaP,Tdap,and Td Vaccines (3 - Td or Tdap) 04/26/2029 04/26/2019, 04/26/2019, 02/09/2008 Hepatitis C Screening Completed 01/20/2010, 010 Pneumococcal Vaccine: 65+ Years Completed 06/08/2016, 03/06/2015, 12/21/2014, Additional history exists Zoster Vaccines Completed 05/30/2019, 05/19, 03/29/2019, Additional history exists VITAMIN D LEVEL ONCE IN A LIFETIME-USE SMARTSET# 50831 Completed 01/26/2023, 01/03/2020, 04/22/2018, Additional history exists [...] this encounter Medical Devices Implanted Type Area Rotary Kiln Operator Device Identifier Shelf Expiration Date Model / Serial / Lot Alloderm 2x4 Sheet [id number] - [id number] Implanted:Qty : 1 on 11/08/2009 [place] [facility] [place] - Human N/A: Abdomen LIFE CELL AFIA 02/16/2011 [id number] / / [id number] Mesh 10 X 14 [id number] - [id number] Implanted:Qty : 1 on 02/02/2011 [place] [facility] [place]/A: Abdomen ATRIUM MEDICAL AFIA 01/03/2015 [id number] / / [id number] Pelvic Coil 2 Implanted:Qty : 5 on 02/04/2011 at [place] [facility] [place] Left: Pelvis Clew / / [id number] Description:figure 8 documented as of this encounter Visit Diagnoses Diagnosis 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 No Full Code 01/18/2010 8:53 PM 01/30/2010 6:41 PM This o rder reflects the patients wishes and were consensually agreed upon. Question Answer Comments Discussion of Advance Directives occurred with: Patient Does the patient have a Living Will? No Does the patient have Health Care Power of Estimator Project Manager? No Full Code 11/18/2009 11:54 AM 11/19/2009 4:09 PM This o rder reflects the patients wishes and were consensually agreed upon. Question Answer Comments Discussion of Advance Directives occurred with: Patient Does the patient have a Living Will? No Does the patient have Health Care Power of Estimator Project Manager? No Full Code 11/13/2009 8:29 AM 11/14/2009 5:08 PM This order reflects the patients wishes and were consensually agreed upon. Care Teams Senior Compensation Analyst Relationship Specialty Start Date End Date Madhuri Galicia DO [address] [place] [address] [place] [address] PCP - General Internal Medicine 02/16/17 documented as of this encounter
--- OUTSIDE RECORDS SUMMARY | 2023-11-22 08:58 | External Medical Summary ---
Author Name Unknown Address Unknown Organization K01:[facility] [place] [address] [place] [address] Laboratory Report Ordering Provider Test Date Status PARI COLLADO 09/01/2023 14:10:24 Final Observation Date Value Abnormality Reference (Units ) Status LMW Heparin [Units/volume] in Platelet poor plasma by Chromogenic method 09/01/2023 14:10:24 0.76 Above high normal <0.10 (IU/mL) Final Low molecular weight heparin 's therapeutic range is 0.6 - 1.00 I.U./mL. Performing Location [facility] [place] - [address] [place] [address]
--- OUTSIDE RECORDS SUMMARY | 2023-11-22 08:58 | External Medical Summary ---
Author Name Unknown Address Unknown Organization [id number]:[facility] [place] [address] [place] [address] Laboratory Report Ordering Provider Test Date Status PARI COLLADO 09/08/2023 12:09:48 Final Observation Date Value Abnormality Reference (Units ) Status LMW Heparin [Units/volume] in Platelet poor plasma by Chromogenic method 09/08/2023 12:09:48 0.74 Above high normal <0.10 (IU/mL) Final Low molecular weight heparin 's therapeutic range is 0.6 - 1.00 I.U./mL. Performing Location [facility] [place] [address] [place] [address]
--- OUTSIDE RECORDS SUMMARY | 2023-11-22 08:58 | External Medical Summary | Summary of Care ---
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 06/08/16 States she does not have allergy to Ben inhibitors 03/29/2019 documented as of this encounter (statuses as of 09/08/2023) Medications Medication Sig Dispensed Refills Start Date [...] goal of less than 8.0% ([facility]) Use to test blood sugar once a [...] goal of less than 8.0% ([facility]) Inject 1.5 mg under the skin once [...] goal of less than 8.0% ([facility]) Take 1 Tablet by mouth in the [...] as of this encounter (statuses as of 09/08/2023) Active Problems Problem Noted Date Diagnosed Date [...] as of this encounter (statuses as of 09/08/2023) Resolved Problems Problem Noted Date Diagnosed Date [...] MANAGEMENT 11/18/200905/05 Overview: Stefanie Powell RN Outpatient Grit Removal OperatorNuclear Monitoring Technician number [phone] Fax number [phone] Hypotension 11/08/2009 12/19/2012 Follow-up examination, follo wing [...] 03/12/2017 Anticoagulation management encounter 02/17/2008 08/20/2008 intermediate card tender current use of ant icoagulant therapy 02/17/2008 [...] as of this encounter (statuses as of 09/08/2023) Immunizations Name Administration Dates Next Due COVID-19 mRNA, LNP-s, No Pre serve, 2-Dose Series ([employer]) 05/27/2021 COVID-19, LNP-s, No Preserve , Rodrick-sucrose, Ages 12+ ([employer]) 02/03/2022 COVID-19, MRNA-LNP, 23-24, P F, 30 MCG/0.3 mL, 12 YRS AND ABOVE, IM ([employer] Inc.-ExteritynatMerchant [employer] and [employer]) 04/27/2023 Covid-19 Ad26, Single Dose (Dream[employer] Holdings/J&Biotectix) 10/25/2020 Covid-19, Mrna, Lnp-s, Pf, B ivalent, 30 Mcg, IM, 12 yrs and above ([employer]) 06/09/2022 H1N1 2009 Influenza, IM 08/02/2009 [...] Care Team (Late st Contact Info) Description 09/09/2023 6:15 AM EST Anticoagulation Pharmacy Call Center WB [phone] [place] [phone] [facility] 58 60 [facility] [place] [address] 09/21/2023 1:00 PM EST Office Visit Family Medicine [facility] [address] [place] [address] [place] [phone] Roly Sagastume CRNP [address] [place] [address] [place] [address] 01/19/2024 1:30 PM EDT Imaging Radiology [address] [place] [address] 06/14/2024 1:00 PM EST Nurse Only Ancillary [address] [place] [address] [place], Nurse [address] [place] [address] Pending Results Name Type Priority Associated Diagnoses Date /Time HEPARIN, LOW MOLECULAR WEIGHT Lab Routine 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) Anticoagulation management encounter intermediate card tender current use of anticoagulant therapy 09/08/2023 12:09 PM EST Health Maintenance Due Date Last Done Comments COLONOSCOPY-EVERY 5 YRS AGES 18-100 01/05/2018 01/05/2013, 01/05/2013, 06/03/2011, Additional history exists Diabetic Foot Exam 03/29/2020 03/29/2019, 0 03/03/2016, 01/08/2015, Additional history exists B-12 01/27/2024 01/26/2023, 10/18, 10/18/2020, Additional history exists CKD PHOS USE SMARTSET 00308 01/27/202401/16, 11/05/2021, 10/18/2020, Additional history exists Albumin/Creatinine Ratio 01/28/2024 023, 11/06/2021, 01/03/2020, Additional history exists Diabetic Eye Exam 02/20/2024 02/19/2023, , 11/23/2021, Additional history exists GFR 02/23/2024 08/25/2023, 07/19, 07/21/2023, Additional history exists HbA1c 02/23/2024 08/25/2023, 01/16, 07/15/2022, Additional history exists Depression Screening 06/08/2024 06/08/2023 CKD HGB USE SMARTSET 07169 07/28/202407/28, 07/21/2023, 06/17/2023, Additional history exists DXA Scan 12/02/2024 12/02/2022, 11/16, 02/11/2015, Additional history exists DTaP,Tdap,and Td Vaccines (3 - Td or Tdap) 04/26/2029 04/26/2019, 04/26/2019, 02/09/2008 Hepatitis C Screening Completed 01/20/2010, 010 Pneumococcal Vaccine: 65+ Years Completed 06/08/2016, 03/06/2015, 12/21/2014, Additional history exists Zoster Vaccines Completed 05/30/2019, 05/19, 03/29/2019, Additional history exists VITAMIN D LEVEL ONCE IN A LIFETIME-USE SMARTSET# [id number] Completed 01/26/2023, 01/03/2020, 04/22/2018, Additional history exists [...] this encounter Medical Devices Implanted Type Area Office Services Coordinator Device Identifier Shelf Expiration Date Model / Serial / Lot Alloderm 2x4 Sheet [id number] - [id number] Implanted:Qty : 1 on 11/08/2009 [place] [facility] [place] - Human N/A: Abdomen LIFE Doutor Recomenda 02/16/2011 [id number] / / [id number] Mesh 10 X 14 [id number] - [id number] Implanted:Qty : 1 on 02/02/2011 [place] [facility] [place] N/A: Abdomen Get Smart Content MEDICAL AFIA 01/03/2015 [id number] / / [id number] Pelvic Coil Implanted:Qty : 7 on 02/04/2011 at [place] [facility] [place] Left: Pelvis Metricly / / [id number] Description:figure 8 Pelvic Coil 2 Implanted:Qty : 5 on 02/04/2011 at [place] [facility] [place] Left: Pelvis Metricly / / [id number] Description:figure 8 documented as of this encounter Visit Diagnoses Diagnosis 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) Anticoagulation management encounter Encounter for therapeutic drug monitoring intermediate card tender current use of anticoagulant therapy documented in this encounter Advance Directives Documents on File Type Date Recorded Patient Social Service Liaison Expl anation Advance Directives and Livin g Will 09/29/2017 LIVING WILL Power of Park Interpretive Ranger 09/29/2017 POWER OF A TTORNEY Latest Code [...] the patient have Health Care Power of Park Interpretive Ranger? No Full Code 01/18/2010 8:53 PM 01/30/2010 6:41 PM This o rder reflects the patients wishes and were consensually agreed upon. Question Answer Comments Discussion of Advance Directives occurred with: Patient Does the patient have a Living Will? No Does the patient have Health Care Power of Park Interpretive Ranger? No Full Code 11/18/2009 11:54 AM 11/19/2009 4:09 PM This o rder reflects the patients wishes and were consensually agreed upon. Question Answer Comments Discussion of Advance Directives occurred with: Patient Does the patient have a Living Will? No Does the patient have Health Care Power of Park Interpretive Ranger? No Full Code 11/13/2009 8:29 AM 11/14/2009 5:08 PM This order reflects the patients wishes and were consensually agreed upon. Care Teams Radiology Teacher Relationship Specialty Start Date End Date Madhuri Galicia DO [address] [place] [address] [place] [phone] PCP - General Internal Medicine 02/16/17 documented as of this encounter
--- OUTSIDE RECORDS SUMMARY | 2023-11-22 08:58 | External Medical Summary | Summary of Care ---
Author Name Unknown Organization [facility] Address [address] [place] [address] Phone [phone] Care Team Providers Care Interior Mechanic Name Role Phone Madhuri Galicia DO Primary Care Provider Reason for Visit * Reason Onset Date Comments Test Results Lab 08/27/2023 Encounter Details Date Type Department Care Team (Late st Contact Info) Description 08/27/2023 Telephone Family Medicine [address] [place] [phone] Roly Sagastume [address] [place] [phone] Test Results Lab Allergies Active Allergy Reactions Criticality Noted Date Comments Ben Inhibitors 12/05/2012- 2009 Stated that she does not have an allergy to Ben Inhibitors. 06/08/16 States she does not have allergy to Ben inhibitors 03/29/2019 documented as of this encounter (statuses as of 08/27/2023) Medications Medication Sig Dispensed Refills Start Date [...] hemoglobin A1c goal of less than 8.0% ([facility]) Use to test blood sugar once [...] as of this encounter (statuses as of 08/27/2023) Active Problems Problem Noted Date Diagnosed Date [...] as of this encounter (statuses as of 08/27/2023) Resolved Problems Problem Noted Date Diagnosed Date [...] MANAGEMENT 11/18/200905/05 Overview: Stefanie Powell RN Outpatient Sole RounderLumber Material Handler number [phone] Fax number [phone] Hypotension 11/08/2009 12/19/2012 Follow-up examination, follo wing [...] 03/12/2017 Anticoagulation management encounter 02/17/2008 08/20/2008 exterminator helper termite current use of ant icoagulant therapy [...] as of this encounter (statuses as of 08/27/2023) Immunizations Name Administration Dates Next Due COVID-19 mRNA, LNP-s, No Pre serve, 2-Dose Series ([employer]) 05/27/2021 COVID-19, LNP-s, No Preserve , Rodrick-sucrose, Ages 12+ ([employer]) 02/03/2022 COVID-19, MRNA-LNP, 23-24, P F, 30 MCG/0.3 mL, 12 YRS AND ABOVE, IM (Integrated [employer] Processing-AmbroniteirnatLabcyte) 04/27/2023 Covid-19 Ad26, Single Dose (SeeJay/J&J) 10/25/2020 Covid-19, Mrna, Lnp-s, Pf, B ivalent, 30 Mcg, IM, 12 yrs and above ([employer]) 06/09/2022 H1N1 2009 Influenza, IM 08/02/2009 Pneumococcal [...] Telephone Encounter - Roly Sagastume CRNP - 08/27/2023 4:07 PM EST Updated patient on lab results. Kidney function has improved from previous. Discussed elevated LDL of 132 and recommended Atorvastatin 20 mg daily in which patient is agreeable to starting. Reviewed liver function with patient and will recheck them in 1 month at her next appointment. A1C was 5.8. Plan will be to recheck in 3 months. documented in this encounter Plan of Treatment Upcoming Encounters Date Type Department Care Team (Late st Contact Info) Description 09/02/2023 6:15 AM EST Anticoagulation Pharmacy Call Center WB [phone] [facility] [place] [phone] [facility], [facility] 58 60 [facility] [place] [address] 09/21/2023 1:00 PM EST Office Visit Family Medicine [address] [place] [phone] Roly Sagastume [address] [place] [address] 01/19/2024 1:30 PM EDT Imaging Radiology [address] [place] [address] 06/14/2024 1:00 PM EST Nurse Only Ancillary [address] [place] [address] [place], Nurse [address] [place] [address] Health Maintenance Due Date Last Done Comments Hepatitis B (1 of 3 - Risk 3-dose series) 2007 COLONOSCOPY-EVERY 5 YRS AGES 18-100 01/05/2018 01/05/2013, 01/05/2013, 06/03/2011, Additional history exists Diabetic Foot Exam 03/29/2020 03/29/2019, 0 03/03/2016, 01/08/2015, Additional history exists B-12 01/27/2024 01/26/2023, 10/18, 10/18/2020, Additional history exists CKD PHOS USE SMARTSET 09670 01/27/202401/16, 11/05/2021, 10/18/2020, Additional history exists Albumin/Creatinine Ratio 01/28/2024 023, 11/06/2021, 01/03/2020, Additional history exists Diabetic Eye Exam 02/20/2024 02/19/2023, , 11/23/2021, Additional history exists GFR 02/23/2024 08/25/2023, 07/19, 07/21/2023, Additional history exists HbA1c 02/23/2024 08/25/2023, 01/16, 07/15/2022, Additional history exists Depression Screening 06/08/2024 06/08/2023 CKD HGB USE SMARTSET 72492 07/28/202407/28, 07/21/2023, 06/17/2023, Additional history exists DXA Scan 12/02/2024 12/02/2022, 11/16, 02/11/2015, Additional history exists DTaP,Tdap,and Td Vaccines (3 - Td or Tdap) 04/26/2029 04/26/2019, 04/26/2019, 02/09/2008 Hepatitis C Screening Completed 01/20/2010, 010 Pneumococcal Vaccine: 65+ Years Completed 06/08/2016, 03/06/2015, 12/21/2014, Additional history exists Zoster Vaccines Completed 05/30/2019, 05/19, 03/29/2019, Additional history exists VITAMIN D LEVEL ONCE IN A LIFETIME-USE SMARTSET# [id number] Completed 01/26/2023, 01/03/2020, 04/22/2018, Additional history exists [...] this encounter Medical Devices Implanted Type Area Long Filler Cigar Roller Machine Device Identifier Shelf Expiration Date Model / Serial / Lot Alloderm 2x4 Sheet [id number] - [id number] Implanted:Qty : 1 on 11/08/2009 at [place] [facility] [place] Tissue - Human N/A: Abdomen LIFE CELL AFIA 02/16/2011 [id number] / / [id number] Mesh 10 X 14 [id number] - [id number] Implanted:Qty : 1 on 02/02/2011 at [place] [facility] [place] N/A: Abdomen ATRIUM MEDICAL AFIA 01/03/2015 [id number] / / [id number] Pelvic Coil 2 Implanted:Qty : 5 on 02/04/2011 at RADIOLOGY [facility] [place] Left: Pelvis HouzeMe / / [id number] Description:figure 8 documented as of this encounter Visit Diagnoses Diagnosis Hyperlipidemia with target LDL less than 70- Primary Other and unspecified hyperlipidemia documented in this encounter Advance Directives Documents on File Type Date Recorded Patient Environmental Science Technician Expl anation Advance Directives and Livin g Will 09/29/2017 LIVING WILL Power of Automobile Salesman 09/29/2017 POWER OF A TTORNEY Latest Code [...] the patient have Health Care Power of Automobile Salesman? No Full Code 01/18/2010 8:53 PM 01/30/2010 6:41 PM This o rder reflects the patients wishes and were consensually agreed upon. Question Answer Comments Discussion of Advance Directives occurred with: Patient Does the patient have a Living Will? No Does the patient have Health Care Power of Automobile Salesman? No Full Code 11/18/2009 11:54 AM 11/19/2009 4:09 PM This o rder reflects the patients wishes and were consensually agreed upon. Question Answer Comments Discussion of Advance Directives occurred with: Patient Does the patient have a Living Will? No Does the patient have Health Care Power of Automobile Salesman? No Full Code 11/13/2009 8:29 AM 11/14/2009 5:08 PM This order reflects the patients wishes and were consensually agreed upon. Care Teams Interior Mechanic Relationship Specialty Start Date End Date Madhuri Galicia DO [address] [place] [address] [place] [address] PCP - General Internal Medicine 02/16/17 documented as of this encounter
--- OUTSIDE RECORDS SUMMARY | 2023-11-22 08:58 | External Medical Summary | Summary of Care ---
Author Name Unknown Organization [facility] Address [address] [place] [address] Phone [phone] Care Team Providers Care Director Of Collections And Archives Name Role Phone Madhuri Galicia DO Primary Care Provider Encounter Details Date Type Department Care Team (Late st Contact Info) Description 09/16/2023 Telephone Family Medicine [address] [place] [phone] Roly Sag[address]ume [address] [place] [address] Allergies Active Allergy Reactions Criticality Noted Date [...] MANAGEMENT 11/18/200905/05 Overview: Stefanie Powell RN Outpatient Commissions SpecialistPlanning Rn number [phone] Fax number [phone] Hypotension 11/08/2009 12/19/2012 Follow-up examination, follo wing [...] 02/17/2008 03/12/2017 Anticoagulation management encounter 02/17/2008 08/20/2008 USP current use of ant icoagulant therapy 02/17/2008 [...] mRNA, LNP-s, No Pre serve, 2-Dose Series ([employer]) 05/27/2021 COVID-19, LNP-s, No Preserve , Rodrick-sucrose, Ages 12+ ([employer]) 02/03/2022 COVID-19, MRNA-LNP, 23-24, P F, 30 MCG/0.3 mL, 12 YRS AND ABOVE, IM (LocaMap-OparairMediaSpike) 04/27/2023 Covid-19 Ad26, Single Dose (24 Quan/J&J) 10/25/2020 Covid-19, Mrna, Lnp-s, Pf, B ivalent, 30 Mcg, IM, 12 yrs and above ([employer]) 06/09/2022 H1N1 2009 Influenza, IM 08/02/2009 Pneumococcal [...] encounter Miscellaneous Notes * Telephone Encounter - Kinjal Albright CMA - 09/17/2023 2:58 PM EST She did get the olmesartan. * Telephone Encounter - Roly Sagastume CRNP - 09/17/2023 10:02 AM EST Appears a prior authorization has been approved. Please reach out to patient and confirm if she has gotten Olmesartan or if she is able to call her insurance company to see if they are going to cover it. * Telephone Encounter - Kenyatta Campbell LPN - 09/16/2023 9:05 AM EST We received a fax from [employer] stating Olmesartan is not covered by insurance. Preferred medicatons: Irbesartan,Losartan, Valsartan, Candesartan and Telmisartan. Do you want to switch to one of these? documented in this encounter Plan of Treatment Upcoming Encounters Date Type Department Care Team (Late st Contact Info) Description 09/21/2023 1:00 PM EST Office Visit Family Medicine [address] [place] [phone] [address] [place] [address] 09/22/2023 2:10 PM EST Laboratory Laboratory [address] [place] [phone] [place], Lab [address] [place] [address] 09/23/2023 6:15 AM EST Anticoagulation Pharmacy Call Center [phone] [facility] [place] [address] [facility] 58 [address] [facility] [place] [address] 01/19/2024 1:30 PM EDT Imaging Radiology [address] [place] [address] 06/14/2024 1:00 PM EST Nurse Only Ancillary [address] [place] [address] [place], Nurse [address] [place] [address] Health Maintenance Due Date Last Done Comments COLONOSCOPY-EVERY 5 YRS AGES 18-100 01/05/2018 01/05/2013, 01/05/2013, 06/03/2011, Additional history exists Diabetic Foot Exam 03/29/2020 03/29/2019, 0 03/03/2016, 01/08/2015, Additional history exists B-12 01/27/2024 01/26/2023, 10/18, 10/18/2020, Additional history exists CKD PHOS USE SMARTSET 62103 01/27/202401/16, 11/05/2021, 10/18/2020, Additional history exists Albumin/Creatinine Ratio 01/28/2024 023, 11/06/2021, 01/03/2020, Additional history exists Diabetic Eye Exam 02/20/2024 02/19/2023, , 11/23/2021, Additional history exists GFR 02/23/2024 08/25/2023, 07/19, 07/21/2023, Additional history exists HbA1c 02/23/2024 08/25/2023, 01/16, 07/15/2022, Additional history exists Depression Screening 06/08/2024 06/08/2023 CKD HGB USE SMARTSET 26340 07/28/202407/28, 07/21/2023, 06/17/2023, Additional history exists DXA Scan 12/02/2024 12/02/2022, 11/16, 02/11/2015, Additional history exists DTaP,Tdap,and Td Vaccines (3 - Td or Tdap) 04/26/2029 04/26/2019, 04/26/2019, 02/09/2008 Hepatitis C Screening Completed 01/20/2010, 010 Pneumococcal Vaccine: 65+ Years Completed 06/08/2016, 03/06/2015, 12/21/2014, Additional history exists Zoster Vaccines Completed 05/30/2019, 05/19, 03/29/2019, Additional history exists VITAMIN D LEVEL ONCE IN A LIFETIME-USE SMARTSET# [id number] Completed 01/26/2023, 01/03/2020, 04/22/2018, Additional history exists [...] this encounter Medical Devices Implanted Type Area Small Business Sales Representative Device Identifier Shelf Expiration Date Model / Serial / Lot Alloderm 2x4 Sheet [id number] - [id number] [place]planted:Qty : 1 [place]08[place] [facility] [place] - Human N/A: Abdomen LIFE INFUSD AFIA 02/16/2011 [id number] / / [id number] Mesh 10 X 14 [id number] - [id number] Implanted:Qty : 1 on 02/02/2011 [place] [facility] [place] N/A: Abdomen ATRIUM MEDICAL AFIA 01/03/2015 [id number] / / [id number] Pelvic Coil Implanted:Qty : 7 on 02/04/2011 [place] [facility] [place] Left: Pelvis Carousell / / [id number] Description:figure 8 Pelvic Coil 2 Implanted:Qty : 5 on 02/04/2011 at [place] [facility] [place] Left: Pelvis Carousell / / [id number] Description:figure 8 documented as of this encounter Visit Diagnoses Diagnosis HTN, goal below 140/90- Primary Unspecified essential hypertension documented in this encounter Advance Directives Documents on File Type Date Recorded Patient Organisation And Methods Analyst Expl anation Advance Directives and Livin g Will 09/29/2017 LIVING WILL Power of Rotary Engine Assembler 09/29/2017 POWER OF A TTORNEY Latest Code [...] the patient have Health Care Power of Rotary Engine Assembler? No Full Code 01/18/2010 8:53 PM 01/30/2010 6:41 PM This o rder reflects the patients wishes and were consensually agreed upon. Question Answer Comments Discussion of Advance Directives occurred with: Patient Does the patient have a Living Will? No Does the patient have Health Care Power of Rotary Engine Assembler? No Full Code 11/18/2009 11:54 AM 11/19/2009 4:09 PM This o rder reflects the patients wishes and were consensually agreed upon. Question Answer Comments Discussion of Advance Directives occurred with: Patient Does the patient have a Living Will? No Does the patient have Health Care Power of Rotary Engine Assembler? No Full Code 11/13/2009 8:29 AM 11/14/2009 5:08 PM This order reflects the patients wishes and were consensually agreed upon. Care Teams Director Of Collections And Archives Relationship Specialty Start Date End Date Madhuri Galicia DO [address] [place] [address] [place] [address] PCP - General Internal Medicine 02/16/17 documented as of this encounter
--- OUTSIDE RECORDS SUMMARY | 2023-11-22 08:59 | External Medical Summary | Summary of Care ---
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 06/08/16 States she does not have allergy to Ben inhibitors 03/29/2019 documented as of this encounter (statuses as of 08/25/2023) Medications Medication Sig Dispensed Refills Start Date [...] goal of less than 8.0% ([facility]) Use to test blood sugar once a [...] goal of less than 8.0% ([facility]) Take 1 Tablet by mouth in the [...] as of this encounter (statuses as of 08/25/2023) Active Problems Problem Noted Date Diagnosed Date [...] as of this encounter (statuses as of 08/25/2023) Resolved Problems Problem Noted Date Diagnosed Date [...] MANAGEMENT 11/18/200905/05 Overview: Stefanie Powell RN Outpatient Anesthesiology [facility] Insurance Representative number [phone] Fax number [phone] Hypotension 11/08/2009 12/19/2012 Follow-up examination, follo wing [...] 02/17/2008 03/12/2017 Anticoagulation management encounter 02/17/2008 08/20/2008 emt intermediate current use of ant icoagulant therapy 02/17/2008 [...] as of this encounter (statuses as of 08/25/2023) Immunizations Name Administration Dates Next Due COVID-19 mRNA, LNP-s, No Pre serve, 2-Dose Series ([employer]) 05/27/2021 COVID-19, LNP-s, No Preserve , Rodrick-sucrose, Ages 12+ ([employer]) 02/03/2022 COVID-19, MRNA-LNP, 23-24, P F, 30 MCG/0.3 mL, 12 YRS AND ABOVE, IM (Copious-SongtradrirDigital Vega) 04/27/2023 Covid-19 Ad26, Single Dose (Amorcyte/MiniTime&MiniTime) 10/25/2020 Covid-19, Mrna, Lnp-s, Pf, B ivalent, 30 Mcg, IM, 12 yrs and above ([employer]) 06/09/2022 H1N1 2009 Influenza, IM 08/02/2009 [...] Progress Notes * Augusta Kessler RPh - 08/25/2023 9:11 AM EST Patient Phone Numbers Current Lovenox Dose: 40mg daily Called and spoke with spouse. He reports patient plans to come in for labs today. Call placed to f/u on result tomorrow. Augusta Kessler RPh, PharmD Clinical Pharmacist - Solar Project Coordination Specialist Medication Therapy [facility] 08/25/2023, 9:12 AM [phone] documented in this encounter Plan of Treatment Upcoming Encounters Date Type Department Care Team (Late st Contact Info) Description 08/26/2023 7:00 AM EST Anticoagulation Pharmacy, [address] [place] [phone] [place] [address] 09/21/2023 1:00 PM EST Office Visit Family Medicine [address] [place] [phone] Roly Sagastume [address] [place] [address] 01/19/2024 1:30 PM EDT Imaging Radiology [address] [place] [address] 06/14/2024 1:00 PM EST Nurse Only Ancillary [address] [place] [address] [place], Nurse Annual [address] [place] [address] Health Maintenance Due Date Last Done Comments Hepatitis B (1 of 3 - Risk 3-dose series) 2007 COLONOSCOPY-EVERY 5 YRS AGES 18-100 01/05/2018 01/05/2013, 01/05/2013, 06/03/2011, Additional history exists Diabetic Foot Exam 03/29/2020 03/29/2019, 0 03/03/2016, 01/08/2015, Additional history exists HbA1c 07/29/2023 01/26/2023, 06/19, 01/15/2022, Additional history exists GFR 01/26/2024 07/28/2023, 09/2023, 06/17/2023, Additional history exists B-12 01/27/2024 01/26/2023, 10/18, 10/18/2020, Additional history exists CKD PHOS USE SMARTSET 47491 01/27/202401/16, 11/05/2021, 10/18/2020, Additional history exists Albumin/Creatinine Ratio 01/28/2024 023, 11/06/2021, 01/03/2020, Additional history exists Diabetic Eye Exam 02/20/2024 02/19/2023, , 11/23/2021, Additional history exists Depression Screening 06/08/2024 06/08/2023 CKD HGB USE SMARTSET 20382 07/28/202407/28, 07/21/2023, 06/17/2023, Additional history exists DXA Scan 12/02/2024 12/02/2022, 11/16, 02/11/2015, Additional history exists DTaP,Tdap,and Td Vaccines (3 - Td or Tdap) 04/26/2029 04/26/2019, 04/26/2019, 02/09/2008 Hepatitis C Screening Completed 01/20/2010, 010 Pneumococcal Vaccine: 65+ Years Completed 06/08/2016, 03/06/2015, 12/21/2014, Additional history exists Zoster Vaccines Completed 05/30/2019, 05/19, 03/29/2019, Additional history exists VITAMIN D LEVEL ONCE IN A LIFETIME-USE SMARTSET# [id number] Completed 01/26/2023, 01/03/2020, 04/22/2018, Additional history exists [...] this encounter Medical Devices Implanted Type Area Button Sewer Hand Device Identifier Shelf Expiration Date Model / Serial / Lot Alloderm 2x4 Sheet [id number] - [id number] Implanted:Qty : 1 on 11/08/2009 [place] [facility] [place] - Human N/A: Abdomen LIFE CELL AFIA 02/16/2011 [id number] / / [id number] Mesh 10 X 14 [id number] - [id number] Implanted:Qty : 1 on 02/02/2011 [place] [facility] [place] N/A: Abdomen ATRIUM MED[employer] AFIA 01/03/2015 [id number] / / [id number] Pelvic Coil 2 Implanted:Qty : 5 on 02/04/2011 at [place] [facility] [place] Left: Pelvis V-Key / / [id number] Description:figure 8 documented as of this encounter Visit Diagnoses Diagnosis 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 No Full Code 01/18/2010 8:53 PM 01/30/2010 6:41 PM This o rder reflects the patients wishes and were consensually agreed upon. Question Answer Comments Discussion of Advance Directives occurred with: Patient Does the patient have a Living Will? No Does the patient have Health Care Power of Access Coordinator? No Full Code 11/18/2009 11:54 AM 11/19/2009 4:09 PM This o rder reflects the patients wishes and were consensually agreed upon. Question Answer Comments Discussion of Advance Directives occurred with: Patient Does the patient have a Living Will? No Does the patient have Health Care Power of Access Coordinator? No Full Code 11/13/2009 8:29 AM 11/14/2009 5:08 PM This order reflects the patients wishes and were consensually agreed upon. Care Teams Catheterization Laboratory Technician Relationship Specialty Start Date End Date Madhuri Galicia DO [address] [place] [address] [place] [address] PCP - General Internal Medicine 02/16/17 documented as of this encounter
--- OUTSIDE RECORDS SUMMARY | 2023-11-22 08:59 | External Medical Summary ---
Author Name Unknown Address Unknown Organization [id number][place] [place] [address] [place] [address] Laboratory Report Ordering Provider Test Date Status SERINA STEVENSON 08/25/2023 12:18:06 Final Observation Date Value Abnormality Reference (Units ) Status Triglyceride 08/25/2023 12:18:06 123 <=174 ( mg/dL) Final Triglyceride Reference Range s (mg/dL):
<150 Acceptable
150-174 Borderline high
175-499 High
>=500 Very high Cholesterol 08/25/2023 12:18:06 235 Above high normal <200 (mg/dL) Final Total Cholesterol Reference Ranges (mg/dL):
<200 Desirable
200-239 Borderline high
>=240 High HDL 08/25/2023 12:18:06 78 >49 (mg/dL ) Final HDL Cholesterol Reference Ra nges (mg/dL):
>=60 High (Desirable)
<50 Low (Undesirable) For Females
<40 Low (Undesirable) For Males NON-HDL CHOLESTEROL 08/25/2023 12:18:06 157 <=159 (mg/dL) Final Non-HDL Cholesterol Referenc e Range (mg/dL):
<100 Target level for high risk ASCVD patient
<130 Optimal for general population
130-159 Near optimal for general population
160-189 Borderline High
190-219 High
>=220 Very High LDL, (calculated) 08/25/2023 12:18:06 132 Above high n ormal <=129 (mg/dL) Final LDL Cholesterol Reference Ra nges (mg/dL):
<70 Target level for high risk ASCVD patient
<100 Optimal for general population
100-129 Near optimal for general population
130-159 Borderline high
160-189 High
>=190 Very high Performing Location [facility] [place] [address] [facility] [address]
--- OUTSIDE RECORDS SUMMARY | 2023-11-22 08:59 | External Medical Summary ---
Author Name Unknown Address Unknown Organization K01:[facility] [place] [address] [place] [address] Laboratory Report Ordering Provider Test Date Status PARI COLLADO 08/25/2023 12:18:06 Final Observation Date Value Abnormality Reference (Units ) Status LMW Heparin [Units/volume] in Platelet poor plasma by Chromogenic method 08/25/2023 12:18:06 0.75 Above high normal <0.10 (IU/mL) Final Low molecular weight heparin 's therapeutic range is 0.6 - 1.00 I.U./mL. Performing Location [facility] [place] [address] [place] [address]
--- OUTSIDE RECORDS SUMMARY | 2023-11-22 08:59 | External Medical Summary ---
Author Name Unknown Address Unknown Organization K01[place] [place] [address] [facility] [place] [address] Laboratory Report Ordering Provider Test Date Status SERINA STEVENSON 08/25/2023 12:18:06 Final Observation Date Value Abnormality Reference (Units ) Status BUN 08/25/2023 12:18:06 33 Above high normal 6-20 (mg/dL) Final Creatinine 08/25/2023 12:18:06 1.1 Above high normal 0.5-1.0 (mg/dL) Final Glomerular filtration rate/1.73 sq M.predicted [Volume Rate/Area] in Serum, Plasma or Blood by Creatinine-based formula (CKD-EPI) 08/25/2023 12:18:06 55 Below low normal >=60 (mL/min) Final eGFR is calculated based on the CKD-EPI 2020 equation SODIUM 08/25/2023 12:18:06 133 Below low normal 135 -146 (mmol/L) Final Potassium 08/25/2023 12:18:06 4.5 3.5-5.1 (m mol/L) Final Cl 08/25/2023 12:18:06 99 98-107 (mm ol/L) Final CO2 08/25/2023 12:18:06 19 Below low normal 22- 32 (mmol/L) Final Anion gap 08/25/2023 12:18:06 15 7-15 (mmol /L) Final Glucose 08/25/2023 12:18:06 199 Above high normal 70 -120 (mg/dL) Final Albumin 08/25/2023 12:18:06 3.7 Below low normal 3.8 -5.0 (g/dL) Final AST (Aspartate aminotransferase) 08/25/2023 12:18:06 41 Above high normal 10-35 (U/L) Final Alk Phos 08/25/2023 12:18:06 117 35-130 (U/ L) Final Bilirubin, Total 08/25/2023 12:18:06 0.8 <=1 .2 (mg/dL) Final Calcium 08/25/2023 12:18:06 8.9 8.4-10.2 ( mg/dL) Final Protein 08/25/2023 12:18:06 5.9 Below low normal 6.0 -8.3 (g/dL) Final ALT (Alanine aminotransferase) 08/25/2023 12:18:06 36 Above high normal 10-35 (U/L) Final Performing Location [facility] [place] [address] [facility] [address]
--- OUTSIDE RECORDS SUMMARY | 2023-11-22 08:59 | External Medical Summary | Summary of Care ---
Author Name Unknown Organization [facility] Address [address] [place] [address] Phone [phone] Care Team Providers Care Accounting Systems Manager Name Role Phone Madhuri Galicia DO Primary Care Provider [phone] Reason for Visit * Reason Comments Outpatient Testing Encounter Details Date Type Department Care Team (Late st Contact Info) Description 08/25/2023 12:20 PM EST Laboratory Laboratory [address] [place] [phone] [address] [place] [address] Type 2 diabetes mellitus with hemoglobin A1c goal of less than 8.0% ([facility]); Hyperlipidemia with target LDL less than 70; 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 ([facility]) Allergies Active Allergy Reactions Criticality Noted Date [...] hemoglobin A1c goal of less than 8.0% ([facility]) Take 1 Tablet by mouth in [...] MANAGEMENT 11/18/200905/05 Overview: Stefanie Powell RN Outpatient Ag Service ManagerEquine Manager number [phone] Fax number [phone] Hypotension 11/08/2009 12/19/2012 Follow-up examination, follo wing [...] mRNA, LNP-s, No Pre serve, 2-Dose Series ([employer]) 05/27/2021 COVID-19, LNP-s, No Preserve , Rodrick-sucrose, Ages 12+ ([employer]) 02/03/2022 COVID-19, MRNA-LNP, 23-24, P F, 30 MCG/0.3 mL, 12 YRS AND ABOVE, IM ([employer]) 04/27/2023 Covid-19 Ad26, Single Dose (Zitra.com/J&J) 10/25/2020 Covid-19, Mrna, Lnp-s, Pf, B ivalent, 30 Mcg, IM, 12 yrs and above ([employer]) 06/09/2022 H1N1 2009 Influenza, IM 08/02/2009 Pneumococcal [...] Description 08/26/2023 7:00 AM EST Anticoagulation Pharmacy, [address] [place] [address] [place] [address] 09/21/2023 1:00 PM EST Office Visit Family Medicine [address] [place] [phone] Roly Sagastume [address] [place] [address] 01/19/2024 1:30 PM EDT Imaging Radiology [address] [place] [address] 06/14/2024 1:00 PM EST Nurse Only Ancillary [address] [place] [address] [place], Nurse Annual [address] [place] [address] Pending Results Name Type Priority Associated Diagnoses Date /Time COMPREHENSIVE METABOLIC PANEL Lab Routine Type 2 diabetes mellitus with hemoglobin A1c goal of less than 8.0% ([facility]) 08/25/2023 12:18 PM EST HEMOGLOBIN A1C Lab Routine Type 2 diabetes mellitus with hemoglobin A1c goal of less than 8.0% (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) 08/25/2023 12:18 PM EST Health Maintenance Due Date Last [...] Additional history exists CKD PHOS USE SMARTSET 08859 01/27/202401/16, 11/05/2021, 10/18/2020, Additional history exists Albumin/Creatinine Ratio 01/28/2024 023, 11/06/2021, 01/03/2020, Additional history exists Diabetic Eye Exam 02/20/2024 02/19/2023, , 11/23/2021, Additional history exists Depression Screening 06/08/2024 06/08/2023 CKD HGB USE SMARTSET 32514 07/28/202407/28, 07/21/2023, 06/17/2023, Additional history exists DXA Scan 12/02/2024 12/02/2022, 11/16, 02/11/2015, Additional history exists DTaP,Tdap,and Td Vaccines (3 - Td or Tdap) 04/26/2029 04/26/2019, 04/26/2019, 02/09/2008 Hepatitis C Screening Completed 01/20/2010, 010 Pneumococcal Vaccine: 65+ Years Completed 06/08/2016, 03/06/2015, 12/21/2014, Additional history exists Zoster Vaccines Completed 05/30/2019, 05/19, 03/29/2019, Additional history exists VITAMIN D LEVEL ONCE IN A LIFETIME-USE SMARTSET# [id number] Completed 01/26/2023, 01/03/2020, 04/22/2018, Additional history exists [...] this encounter Medical Devices Implanted Type Area Dry Cans Back Tender Device Identifier Shelf Expiration Date Model / Serial / Lot Alloderm 2x4 Sheet [id number] - [id number] Implanted:Qty : 1 on 11/08/2009 at [place] [facility] [place] Tissue - Human N/A: Abdomen LIFE CELL AFIA 02/16/2011 [id number] / / [id number] Mesh 10 X 14 [id number] - [id number] Implanted:Qty : 1 on 02/02/2011 at [place] [facility] [place] N/A: Abdomen A[employer]IUM MED[employer] AFIA 01/03/2015 [id number] / / [id number] Pelvic Coil 2 Implanted:Qty : 5 on 02/04/2011 at RAD[place]OLOG[place] [facility] [place] Left: Pelvis Soundflavor / / [id number] Description:figure 8 documented as of this encounter Visit Diagnoses Diagnosis Type 2 diabetes mellitus with hemoglobin A1c goal of less than 8.0% (HCC) Hyperlipidemia with target LDL less than 70 Other and unspecified hyperlipidemia 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 No Full Code 01/18/2010 8:53 PM 01/30/2010 6:41 PM This o rder reflects the patients wishes and were consensually agreed upon. Question Answer Comments Discussion of Advance Directives occurred with: Patient Does the patient have a Living Will? No Does the patient have Health Care Power of Master Brewer? No Full Code 11/18/2009 11:54 AM 11/19/2009 4:09 PM This o rder reflects the patients wishes and were consensually agreed upon. Question Answer Comments Discussion of Advance Directives occurred with: Patient Does the patient have a Living Will? No Does the patient have Health Care Power of Master Brewer? No Full Code 11/13/2009 8:29 AM 11/14/2009 5:08 PM This order reflects the patients wishes and were consensually agreed upon. Care Teams Accounting Systems Manager Relationship Specialty Start Date End Date Madhuri Galicia DO [address] [place] [address] [place] [address] PCP - General Internal Medicine 02/16/17 documented as of this encounter
[2023-11-22] MEDS ORDERED: LOSARTAN POTASSIUM 25 MG TAB PO SCH (09:00)
[2023-11-22] MEDS ORDERED: ENOXAPARIN INJ 40 MG/0.4 ML SYR SQ SCH (09:00)
--- OUTSIDE RECORDS SUMMARY | 2023-11-22 09:00 | External Medical Summary | Summary of Care ---
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 06/08/16 States she does not have allergy to Ben inhibitors 03/29/2019 documented as of this encounter (statuses as of 08/23/2023) Medications Medication Sig Dispensed Refills Start Date End Date Status ASPIRIN EC 81 MG PO TBEC 1 TABLET DAILY 30 Tab 0 01/31/20 10 Active FISH OIL 1000 MG PO CAPS four capsules by mouth daily 0 Active Cholecalciferol (VITAMIN D) 1000 units Tablet Take 1 Tablet by mouth in the morning. 0 Active Contour Next Test In Vitro Strip (Glucose Blood)Indication s:Type 2 diabetes mellitus with hemoglobin A1c goal of less than 8.0% ([facility]) Use to test blood sugar once a day DXe11.9 100 Strip 3 10/08/19 22 Active High Potency Iron 65 MG Oral Tablet Take 65 mg by mouth in the morning. One daily. 0 Active Triamcinolone Acetonide 0.1 % External Cream (Aristocort)Lois cations:Eczema, unspecified type Apply topically to affected area 2 times a day. To affected area for up to two weeks. 60 g 5 07/15/20 22 Active Trulicity 1.5 MG/0.5ML Subcutaneous Solution Pen-injector (Dulaglutide)Ind ications:Type 2 diabetes mellitus with hemoglobin A1c goal of less than 8.0% ([facility]) Inject 1.5 mg under the skin once a week. 6 mL 3 06/08/20 23 Active Enoxaparin Sodium 40 MG/0.4ML Injection Solution Prefilled Syringe (Lovenox) Inject 40 mg under the skin in the morning. As directed by anticoagulation clinic. 12 mL 1 08/23/19 24 Active Olmesartan Medoxomil 5 MG Oral Tablet Take 5 mg by mouth in the morning and 5 mg before bedtime. 0 05/09/20 21 Discontinued(Re fill) Colestipol HCl 1 GM Oral Tablet (Colestid) Take 1 Tablet by mouth in the morning and 1 Tablet before bedtime. 180 Tablet 3 07/15/20 024 Discontinued(Re fill) Alendronate Sodium 70 MG Oral Tablet (Fosamax) Take 1 Tablet by mouth once a week. with 8 oz. water 30 minutes before first meal of the day. Remain upright for 30 min after taking tablet. 5 Tablet 01/27/20 024 Discontinued(Re fill) Allopurinol 100 MG Oral Tablet (Zyloprim)Indica tions:Gout TAKE 1 TABLET IN THE MORNING 90 Tablet 04/16/20 024 Discontinued(Re fill) metFORMIN HCl ER 500 MG Oral Tablet Extended Release 24 Hour (Glucophage XR)Indications:T ype 2 diabetes mellitus with hemoglobin A1c goal of less than 8.0% ([facility]) Take 1 Tablet by mouth in the morning and 1 Tablet before bedtime. 180 Tablet 3 04/16/20 024 Discontinued(Re fill) Pantoprazole Sodium 20 MG Oral Tablet Delayed Release (Protonix) TAKE 1 TABLET IN THE MORNING 90 Tablet 1 04/16/20 23 024 Discontinued(Re fill) Metoprolol Tartrate 25 MG Oral Tablet (Lopressor) Take 1 Tablet by mouth in the morning and 1 Tablet before bedtime. 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 At 9am. 6 mL 0 08/14/19 24 024 Discontinued documented as of this encounter (statuses as of 08/23/2023) Active Problems Problem Noted Date Diagnosed Date [...] as of this encounter (statuses as of 08/23/2023) Resolved Problems Problem Noted Date Diagnosed Date [...] MANAGEMENT 11/18/200905/05 Overview: Stefanie Powell RN Outpatient Occupational Therapist AideCdl Program Coordinator number [phone] Fax number [phone] Hypotension 11/08/2009 12/19/2012 Follow-up examination, follo wing [...] 02/17/2008 03/12/2017 Anticoagulation management encounter 02/17/2008 08/20/2008 nursing home current use of ant icoagulant therapy 02/17/2008 [...] as of this encounter (statuses as of 08/23/2023) Immunizations Name Administration Dates Next Due COVID-19 mRNA, LNP-s, No Pre serve, 2-Dose Series (Navegg) 05/27/2021 COVID-19, LNP-s, No Preserve , Rodrick-sucrose, Ages 12+ (Navegg) 02/03/2022 COVID-19, MRNA-LNP, 23-24, P F, 30 MCG/0.3 mL, 12 YRS AND ABOVE, IM ([employer]) 04/27/2023 Covid-19 Ad26, Single Dose ([employer]) 10/25/2020 Covid-19, Mrna, Lnp-s, Pf, B ivalent, 30 Mcg, IM, 12 yrs and above (Navegg) 06/09/2022 H1N1 2009 Influenza, IM 08/02/2009 Pneumococcal [...] this encounter Progress Notes * Augusta Kessler, [facility] - 08/23/2023 9:15 AM EST Patient Phone Numbers Current Lovenox Dose: 40mg daily Latest Reference Range & Units 08/20/23 12:19 Heparin, Low Molecular Weight <0.10 IU/mL 1.01 (H) (H): Data is abnormally high Spoke to patient and spouse. Instructed to continue current dose of 40mg daily. New Rx sent to pharmacy. Instructed to obtain labs on 08/24, 4 hours after AM dose. Will plan to then recheck x1 week and transfer to telepharmacy team at that time. Lovenox Dose: 40mg daily Augusta Kessler RPh, PharmD Clinical Pharmacist - Educational Psychology Professor Medication Therapy [facility] 08/23/2023, 9:15 AM [phone] documented in this encounter Plan of Treatment Upcoming Encounters Date Type Department Care Team (Late st Contact Info) Description 08/24/2023 1:00 PM EST Laboratory Laboratory [address] [place] [phone] [place] [address] 08/25/2023 7:00 AM EST Anticoagulation Pharmacy, [address] [place] [address] [place] [address] 09/21/2023 1:00 PM EST Office Visit Family Medicine [address] [place] [phone] [address] [place] [address] 01/19/2024 1:30 PM EDT Imaging Radiology [address] [place] [address] 06/14/2024 1:00 PM EST Nurse Only Ancillary [address] [place] [address] [place], Nurse [address] [place] [address] Scheduled Orders Name Type Priority Associated Diagnoses Orde r Schedule HEPARIN, LOW MOLECULAR WEIGHT Lab Routine 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) Expected: 08/24/2023, Expires: 08/23/2024 Health Maintenance Due Date Last Done Comments [...] Additional history exists CKD PHOS USE SMARTSET 84446 01/27/202401/16, 11/05/2021, 10/18/2020, Additional history exists Albumin/Creatinine Ratio 01/28/2024 023, 11/06/2021, 01/03/2020, Additional history exists Diabetic Eye Exam 02/20/2024 02/19/2023, , 11/23/2021, Additional history exists Depression Screening 06/08/2024 06/08/2023 CKD HGB USE SMARTSET 28248 07/28/202407/28, 07/21/2023, 06/17/2023, Additional history exists DXA Scan 12/02/2024 12/02/2022, 11/16, 02/11/2015, Additional history exists DTaP,Tdap,and Td Vaccines (3 - Td or Tdap) 04/26/2029 04/26/2019, 04/26/2019, 02/09/2008 Hepatitis C Screening Completed 01/20/2010, 010 Pneumococcal Vaccine: 65+ Years Completed 06/08/2016, 03/06/2015, 12/21/2014, Additional history exists Zoster Vaccines Completed 05/30/2019, 05/19, 03/29/2019, Additional history exists VITAMIN D LEVEL ONCE IN A LIFETIME-USE SMARTSET# [id number] Completed 01/26/2023, 01/03/2020, 04/22/2018, Additional history exists [...] this encounter Medical Devices Implanted Type Area Roller Coaster Engineer Device Identifier Shelf Expiration Date Model / Serial / Lot Alloderm 2x4 Sheet [id number] - [id number] Implanted:Qty : 1 on 11/08/2009 at OR [facility] [place] Tissue - Human N/A: Abdomen LIFE CELL AFIA 02/16/2011 [id number] / / [id number] Mesh 10 X 14 [id number] - [id number] Implanted:Qty : 1 on 02/02/2011 at OR [facility] [place] N/A: Abdomen [employer] AFIA 01/03/2015 [id number] / / [id number] Pelvic Coil 2 Implanted:Qty : 5 on 02/04/[address] 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 No Full Code 01/18/2010 8:53 PM 01/30/2010 6:41 PM This o rder reflects the patients wishes and were consensually agreed upon. Question Answer Comments Discussion of Advance Directives occurred with: Patient Does the patient have a Living Will? No Does the patient have Health Care Power of Color Finisher? No Full Code 11/18/2009 11:54 AM 11/19/2009 4:09 PM This o rder reflects the patients wishes and were consensually agreed upon. Question Answer Comments Discussion of Advance Directives occurred with: Patient Does the patient have a Living Will? No Does the patient have Health Care Power of Color Finisher? No Full Code 11/13/2009 8:29 AM 11/14/2009 5:08 PM This order reflects the patients wishes and were consensually agreed upon. Care Teams Massage Operator Relationship Specialty Start Date End Date Madhuri Galicia DO [address] [place] [address] [place] [address] PCP - General Internal Medicine 02/16/17 documented as of this encounter
--- OUTSIDE RECORDS SUMMARY | 2023-11-22 09:00 | External Medical Summary ---
Author Name Unknown Address Unknown Organization K01[place] [place] [address] [place] [address] Laboratory Report Ordering Provider Test Date Status PARI COLLADO 08/20/2023 12:19:56 Final Observation Date Value Abnormality Reference (Units ) Status LMW Heparin [Units/volume] in Platelet poor plasma by Chromogenic method 08/20/2023 12:19:56 1.01 Above high normal <0.10 (IU/mL) Final Low molecular weight heparin 's therapeutic range is 0.6 - 1.00 I.U./mL. Performing Location [facility] [place] [address] [place] [address]
--- OUTSIDE RECORDS SUMMARY | 2023-11-22 09:00 | External Medical Summary | Summary of Care ---
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 06/08/16 States she does not have allergy to Ben inhibitors 03/29/2019 documented as of this encounter (statuses as of 08/20/2023) Medications Medication Sig Dispensed Refills Start Date [...] goal of less than 8.0% ([facility]) Use to test blood sugar once [...] goal of less than 8.0% ([facility]) Take 1 Tablet by mouth in [...] goal of less than 8.0% ([facility]) Inject 1.5 mg under the skin once a week. 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 At 9am. 6 mL 0 08/14/2023 Active documented as of this encounter (statuses as of 08/20/2023) Active Problems Problem Noted Date Diagnosed Date [...] as of this encounter (statuses as of 08/20/2023) Resolved Problems Problem Noted Date Diagnosed Date [...] MANAGEMENT 11/18/200905/05 Overview: Stefanie Powell RN Outpatient Insulation And Flooring AssemblerSoftware Publisher number [phone] Fax number [phone] Hypotension 11/08/2009 12/19/2012 Follow-up examination, follo wing [...] 02/17/2008 03/12/2017 Anticoagulation management encounter 02/17/2008 08/20/2008 skilled nursing current use of ant icoagulant therapy 02/17/2008 [...] as of this encounter (statuses as of 08/20/2023) Immunizations Name Administration Dates Next Due COVID-19 mRNA, LNP-s, No Pre serve, 2-Dose Series (InflaRx) 05/27/2021 COVID-19, LNP-s, No Preserve , Rodrick-sucrose, Ages 12+ (InflaRx) 02/03/2022 COVID-19, MRNA-LNP, 23-24, P F, 30 MCG/0.3 mL, 12 YRS AND ABOVE, IM ([employer]) 04/27/2023 Covid-19 Ad26, Single Dose ([employer]v [employer]) 10/25/2020 Covid-19, Mrna, Lnp-s, Pf, B ivalent, 30 Mcg, IM, 12 yrs and above (InflaRx) 06/09/2022 H1N1 2009 Influenza, IM 08/02/2009 Pneumococcal [...] Care Team (Late st Contact Info) Description 08/23/2023 7:00 AM EST Anticoagulation Pharmacy, [address] [place] [address] [place] [address] 08/23/2023 10:20 AM EST Office Visit Family Medicine [address] [place] [phone] [address] [place] [address] 01/19/2024 1:30 PM EDT Imaging Radiology [address] [place] [address] 06/14/2024 1:00 PM EST Nurse Only Ancillary [address] [place] [address] [place], Nurse Annual Wellness [address] [place] [address] [place] [address] Pending Results Name Type Priority Associated Diagnoses Date /Time HEPARIN, LOW MOLECULAR WEIGHT Lab Routine 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) Anticoagulation management encounter brand executive current use of anticoagulant therapy 08/20/2023 12:19 PM EST Health Maintenance Due Date Last Done Comments Hepatitis B (1 of 3 - Risk 3-dose series) 2007 COLONOSCOPY-EVERY 5 YRS AGES 18-100 01/05/2018 01/05/2013, 01/05/2013, 06/03/2011, Additional history exists Diabetic Foot Exam 03/29/2020 03/29/2019, 0 03/03/2016, 01/08/2015, Additional history exists HbA1c 07/29/2023 01/26/2023, 1202/2022, 01/15/2022, Additional history exists GFR 01/26/2024 07/28/2023, 09/2023, 06/17/2023, Additional history exists B-12 01/27/2024 01/26/2023, 10/18, 10/18/2020, Additional history exists CKD PHOS USE SMARTSET 59296 01/27/202401/16, 11/05/2021, 10/18/2020, Additional history exists Albumin/Creatinine Ratio 01/28/2024 023, 11/06/2021, 01/03/2020, Additional history exists Diabetic Eye Exam 02/20/2024 02/19/2023, , 11/23/2021, Additional history exists Depression Screening 06/08/2024 06/08/2023 CKD HGB USE SMARTSET 27236 07/28/202407/28, 07/21/2023, 06/17/2023, Additional history exists DXA Scan 12/02/2024 12/02/2022, 11/16, 02/11/2015, Additional history exists DTaP,Tdap,and Td Vaccines (3 - Td or Tdap) 04/26/2029 04/26/2019, 04/26/2019, 02/09/2008 Hepatitis C Screening Completed 01/20/2010, 010 Pneumococcal Vaccine: 65+ Years Completed 06/08/2016, 03/06/2015, 12/21/2014, Additional history exists Zoster Vaccines Completed 05/30/2019, 05/19, 03/29/2019, Additional history exists VITAMIN D LEVEL ONCE IN A LIFETIME-USE SMARTSET# [id number] Completed 01/26/2023, 01/03/2020, 04/22/2018, Additional history exists [...] this encounter Medical Devices Implanted Type Area Hog Scalder Device Identifier Shelf Expiration Date Model / Serial / Lot Alloderm 2x4 Sheet [id number] - [id number] Implanted:Qty : 1 on 11/08/2009 at [place] [facility] [place] Tissue - Human N/A: Abdomen LIFE CELL AFIA 02/16/2011 [id number] / / [id number] Mesh 10 X 14 [id number] - [id number] Implanted:Qty : 1 on 02/02/2011 at [place] [facility] [place] N/A: Abdomen ATRIUM MEDICAL AFIA 01/03/2015 [id number] / / [id number] Pelvic Coil 2 Implanted:Qty : 5 on 02/04/2011 at RADIOLOGY [facility] [place] Left: Pelvis [employer] / / [id number] Description:figure 8 documented as of this encounter Visit Diagnoses Diagnosis 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 No Full Code 01/18/2010 8:53 PM 01/30/2010 6:41 PM This o rder reflects the patients wishes and were consensually agreed upon. Question Answer Comments Discussion of Advance Directives occurred with: Patient Does the patient have a Living Will? No Does the patient have Health Care Power of Jewel Hole Driller? No Full Code 11/18/2009 11:54 AM 11/19/2009 4:09 PM This o rder reflects the patients wishes and were consensually agreed upon. Question Answer Comments Discussion of Advance Directives occurred with: Patient Does the patient have a Living Will? No Does the patient have Health Care Power of Jewel Hole Driller? No Full Code 11/13/2009 8:29 AM 11/14/2009 5:08 PM This order reflects the patients wishes and were consensually agreed upon. Care Teams Towel Rolling Machine Operator Relationship Specialty Start Date End Date Madhuri Galicia DO [address] [place] [address] [place] [address] PCP - General Internal Medicine 02/16/17 documented as of this encounter
--- OUTSIDE RECORDS SUMMARY | 2023-11-22 09:00 | External Medical Summary | Summary of Care ---
Author Name Unknown Organization [facility] Address [address] [place] [place] [address] Phone [phone] Care Team Providers Care Color Checker Name Role Phone Madhuri Galicia DO Primary Care Provider + [phone] Reason for Referral * Medication Prior Authorization - Authorized Specialty Diagnoses / Procedures Referred By Contac t Referred To Contact Diagnoses HTN, goal below 140/90 Roly Sagastume CRNP [address] [place] [address] [place] [address] Referral ID Status Reason Start Date Expiration Date V isits Requested Visits Authorized [id number] Authorized 07/24/2023 07/18/2099 999 999 Reason for Visit * Reason Comments Re-Check Encounter Details Date Type Department Care Team (Late st Contact Info) Description 08/23/2023 10:20 AM EST Office Visit Family Medicine [address] [place] [phone] Roly Sagastume CRNP [address] [place] [address] [place] [address] Type 2 diabetes mellitus with hemoglobin A1c goal of less than 8.0% (HCC)*; Gout; 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 6 mL 3 06/08/20 23 Active Alendronate Sodium 70 MG Oral Tablet (Fosamax)Indicat ions:Age-related osteoporosis without current pathological fracture Take 1 Tablet by mouth once a week. with 8 oz. water 30 minutes before first meal of the day. Remain upright for 30 min after taking tablet. 15 Tablet 1 08/23/19 24 Active Allopurinol 100 MG Oral Tablet (Zyloprim)Indica tions:Gout TAKE 1 TABLET IN THE MORNING 90 Tablet 1 08/23/19 24 Active Colestipol HCl 1 GM Oral Tablet (Colestid)Indica tions:Hyperlipid emia with target LDL less than 70 Take 1 Tablet by mouth in the morning and 1 Tablet before bedtime. 180 Tablet 1 08/23/19 24 Active metFORMIN HCl ER 500 MG Oral Tablet Extended Release 24 Hour (Glucophage XR)Indications:T ype 2 diabetes mellitus with hemoglobin A1c goal of less than 8.0% (HCC) Take 1 Tablet by mouth in the morning and 1 Tablet before bedtime. 180 Tablet 1 08/23/19 24 Active Metoprolol Tartrate 25 MG Oral Tablet (Lopressor)Indic ations:HTN, goal below 140/90 Take 1 Tablet by mouth in the morning and 1 Tablet before bedtime. 180 Tablet 1 08/23/19 24 Active Olmesartan Medoxomil 5 MG Oral Tablet (Benicar)Indicat ions:HTN, goal below 140/90 Take 5 mg by mouth in the morning and 5 mg before bedtime. 180 Tablet 08/23/19 24 Active Pantoprazole Sodium 20 MG Oral Tablet Delayed Release (Protonix)Indica tions:Gastroesop hageal reflux disease without esophagitis TAKE 1 TABLET IN THE MORNING 90 Tablet 1 08/23/19 24 Active Enoxaparin Sodium 40 MG/0.4ML Injection Solution Prefilled Syringe (Lovenox) Inject 40 mg under the skin in the morning. As directed by anticoagulation clinic. 12 mL 08/23/19 24 Active Olmesartan Medoxomil 5 MG Oral Tablet Take 5 mg by mouth in the morning and 5 mg before bedtime. 0 05/09/20 21 024 Discontinued(Re fill) Colestipol HCl 1 GM Oral Tablet (Colestid) Take 1 Tablet by mouth in the morning and 1 Tablet before bedtime. 180 Tablet 3 07/15/20 22 024 Discontinued(Re fill) Alendronate Sodium 70 MG Oral Tablet (Fosamax) Take 1 Tablet by mouth once a week. with 8 oz. water 30 minutes before first meal of the day. Remain upright for 30 min after taking tablet. 5 Tablet 01/27/20 23 024 Discontinued(Re fill) Allopurinol 100 MG Oral Tablet (Zyloprim)Indica tions:Gout TAKE 1 TABLET IN THE MORNING 90 Tablet 3 04/16/20 23 024 Discontinued(Re fill) metFORMIN HCl ER 500 MG Oral Tablet Extended Release 24 Hour (Glucophage XR)Indications:T ype 2 diabetes mellitus with hemoglobin A1c goal of less than 8.0% (HCC) Take 1 Tablet by mouth in the morning and 1 Tablet before bedtime. 180 Tablet 3 04/16/20 23 024 Discontinued(Re fill) Pantoprazole Sodium 20 MG Oral Tablet Delayed Release (Protonix) TAKE 1 TABLET IN THE MORNING 90 Tablet 1 04/16/20 23 024 Discontinued(Re fill) Metoprolol Tartrate 25 MG Oral Tablet (Lopressor) Take 1 Tablet by mouth in the morning and 1 Tablet before bedtime. 180 Tablet 3 04/16/20 23 024 Discontinued(Re fill) Cephalexin 500 MG Oral CapsuleIndicatio ns:Suspected urinary tract infection Take 1 Capsule by mouth in the morning and 1 Capsule before bedtime. Do all this for 7 days. 14 Capsule 0 04/21/20 23 024 Discontinued(Pa tient preference/disc ontinuation) Enoxaparin Sodium 60 MG/0.6ML Injection Solution Prefilled [...] Preop examination 12/28/2013 06/08/2016 Abnormal mammogram 10/25/2013 11/21/201 6 Type 2 diabetes mellitus wit h [...] MANAGEMENT 11/18/200905/05 Overview: Stefanie Powell RN Outpatient Muffler MechanicBrand Leader number [phone] Fax number [phone] Hypotension 11/08/2009 12/19/2012 Follow-up examination, lyndseyo wing other surgery 11/08/2009 12/19/2012 Diaphragmatic hernia 11/08/2009 016 Gastric ulcer 11/08/2009 06/08/2016 Other joint derangement, not elsewhere classified, shoulder region 08/16/2009 12/19/2012 Overview: Old posterior labral tear Synovitis of shoulder 08/16/20092012 Shoulder impingement 08/16/2009 013 Shoulder joint pain 08/16/2009 11/20/19 HTN, goal below 130/80 08/14/200907/15 Overview: Per [...] 02/17/2008 03/12/2017 Anticoagulation management encounter 02/17/2008 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 [...] mRNA, LNP-s, No Pre serve, 2-Dose Series ([employer]) 05/27/2021 COVID-19, LNP-s, No Preserve , Rodrick-sucrose, Ages 12+ ([employer]) 02/03/2022 COVID-19, MRNA-LNP, 23-24, P F, 30 MCG/0.3 mL, 12 YRS AND ABOVE, IM ([employer]-Comirnaty) 04/27/2023 Covid-19 Ad26, Single Dose ([employer]/J&J) 10/25/2020 Covid-19, Mrna, Lnp-s, Pf, B ivalent, 30 Mcg, IM, 12 yrs and above ([employer]) 06/09/2022 H1N1 2009 Influenza, IM 08/02/2009 Pneumococcal [...] Sign Reading Time Taken Comments Blood Pressure 110/66 08/23/2023 10:32 AM EST Pulse 86 08/23/2023 10:32 AM EST Temperature 35.6 C (96 F) 08/23/2023 10:32 AM EST Respiratory Rate 16 08/23/2023 10:32 AM EST Oxygen Saturation - - Inhaled Oxygen Concentration - - Weight - - Height - - Body Mass Index - - documented in this encounter Progress Notes * Roly Sagastume CRNP - 08/23/2023 10:35 AM EST Images from the original note were not included. History of Present Illness Shikha Ricks is a 77 year old female that presents for Re-Check Past medical hx of Type 2 DM, hyperlipidemia, CKD III, HTN, and gout. Patient reports was admitted to the hospital at the end of June for right leg swelling and difficulty with ambulation. Patient was transferred to [facility] for rehab placement and d/c on 08/04/23.Pt reports receiving home PT 2 days a week and following their recommendations. Pt reports has not been checking BSG since this happened, but former A1C reviewed and 6.9. Pt reports not checking blood pressure at home, but normal in the office today and is checked by PT during the week. Reports right leg swelling since being hospitalized and is not getting better or worse. Denies any pain, warmth, redness, or drainage today. Contributes this being the reason she is having difficulty ambulating.Denies any fever, chills, headaches, vision changes, dizziness, chest pain, shortness of breath, abdominal pain, N/V/D, constipation. Physical Exam Vitals: 08/23/23 1032 Temp: 35.6 C (96 F) Pulse: 86 Resp: 16 BP: 110/66 Physical Exam Vitals and nursing note reviewed. Constitutional: Appearance: Normal appearance. Cardiovascular: Rate and Rhythm: Normal rate and regular rhythm. Heart sounds: Murmur heard. Pulmonary: Effort: Pulmonary effort is normal. Breath sounds: Normal breath sounds. Musculoskeletal: Right lower leg: Tenderness present. 2+ Pitting Edema present. Left lower leg: No edema. Comments: No erythema, warmth, or drainage. Skin: General: Skin is warm and dry. Neurological: Mental Status: She is alert. I have reviewed the following results: LW, Lipid Panel, Hemoglobin A1C, CBC, BMP, Vasc Duplex (06/17/23). Assessment and Plan Type 2 diabetes mellitus with hemoglobin A1c goal of less than 8.0% (HCC) - asymptomatic today and taking Metformin and Trulicity - Pt to see [place] today - Will recheck A1C - metFORMIN HCl ER 500 MG Oral Tablet Extended Release 24 Hour (Glucophage XR); Take 1 Tablet by mouth in the morning and 1 Tablet before bedtime. 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 - LIPID PANEL WITH DIRECT LDL IF TG IS HIGH; Future Age-related osteoporosis without current pathological fracture - Continue taking Fosamax as prescribed - Alendronate Sodium 70 MG Oral Tablet (Fosamax); Take 1 Tablet by mouth once a week. with 8 oz. water 30 minutes before first meal of the day. Remain upright for 30 min after taking tablet. HTN, goal below 140/90 - Blood pressure normal today and pt asymptomatic - drink plenty of fluids - Metoprolol Tartrate 25 MG Oral Tablet (Lopressor); Take 1 Tablet by mouth in the morning and 1 Tablet before bedtime. - Olmesartan Medoxomil 5 MG Oral Tablet (Benicar); Take 5 mg by mouth in the morning and 5 mg before bedtime Gastroesophageal reflux disease without esophagitis - Well controlled today should continue pantoprazole as prescribed - Pantoprazole Sodium 20 MG Oral Tablet Delayed Release (Protonix); TAKE 1 TABLET IN THE MORNING Wrap-Up Follow Up: Return in about 1 month (around 09/21/2023). Time: I spent a total of 30-39 minutes (exact time 39 mins) on the date of service in preparation, delivery, and documentation of the care provided to Shikha Ricks excluding any time spent in the performance of separately billed services. documented in this encounter Nursing Notes * Kenyatta Campbell LPN - 08/23/2023 10:20 AM EST Unable to get on scale. Can't bear wt hs own w/c. Wt of it is unknown. She said she was 132 lbs bout 2-3 weeks ago Was in half-way at [facility]. We weighed pt today with her chair. Total 183 lbs. Spouse was to come back in with chair after he put her in the vehicle after her visit. He never returned. documented in this encounter Plan of Treatment Upcoming Encounters Date Type Department Care Team (Late st Contact Info) Description 08/24/2023 1:00 PM EST Laboratory Laboratory [address] [place] [phone] [place], Lab [address] [place] [address] 08/25/2023 7:00 AM EST Anticoagulation Pharmacy, [address] [place] [address] [place] [address] 09/21/2023 1:00 PM EST Office Visit Family Medicine [address] [place] [phone] Roly Sagastume CRNP [address] [place] [address] [place] [address] 01/19/2024 1:30 PM EDT Imaging Radiology [address] [place] [address] 06/14/2024 1:00 PM EST Nurse Only Ancillary [address] [place] [address] [place], Nurse [address] [place] [address] Scheduled Orders Name Type Priority Associated Diagnoses Orde r Schedule COMPREHENSIVE METABOLIC PANEL Lab Routine Type 2 diabetes mellitus with hemoglobin A1c goal of less than 8.0% (HCC) Expected: 08/23/2023 (Approximate), Expires: 08/22/2024 HEMOGLOBIN A1C Lab Routine Type 2 diabetes mellitus with hemoglobin A1c goal of less than 8.0% (HCC) Expected: 08/23/2023 (Approximate), Expires: 08/22/2024 LIPID PANEL WITH DIRECT LDL IF TG IS HIGH Lab Routine Hyperlipidemia with target LDL less than 70 Expected: 08/23/2023, Expires: 08/23/2024 Health Maintenance Due Date Last [...] Additional history exists CKD PHOS USE SMARTSET 50904 01/27/2024 0707/2022, 11/05/2021, 10/18/2020, Additional history exists Albumin/Creatinine Ratio 01/28/2024 023, 11/06/2021, 01/03/2020, Additional history exists Diabetic Eye Exam 02/20/2024 02/19/2023, , 11/23/2021, Additional history exists Depression Screening 06/08/2024 06/08/2023 CKD HGB USE SMARTSET 38567 07/28/202407/28, 07/21/2023, 06/17/2023, Additional history exists DXA Scan 12/02/2024 12/02/2022, 11/16, 02/11/2015, Additional history exists DTaP,Tdap,and Td Vaccines (3 - Td or Tdap) 04/26/2029 04/26/2019, 04/26/2019, 02/09/2008 Hepatitis C Screening Completed 01/20/2010, 010 Pneumococcal Vaccine: 65+ Years Completed 06/08/2016, 03/06/2015, 12/21/2014, Additional history exists Zoster Vaccines Completed 05/30/2019, 05/19, 03/29/2019, Additional history exists VITAMIN D LEVEL ONCE IN A LIFETIME-USE SMARTSET# 16551 Completed 01/26/2023, 01/03/2020, 04/22/2018, Additional history exists [...] this encounter Medical Devices Implanted Type Area Mower Mechanic Device Identifier Shelf Expiration Date Model / Serial / Lot Alloderm 2x4 Sheet [id number] - [id number] Implanted:Qty : 1 on 11/08/2009 at OR [facility] [place] Tissue - Human N/A: Abdomen LIFE [employer]LL [employer] 02/16/2011 [id number] / / [id number] Mesh 10 X 14 [id number] - [id number] Implanted:Qty : 1 on 02/02/2011 at OR [facility] [place] N/A: Abdomen [employer] AFIA 01/03/2015 [id number] / / [id number] Pelvic Coil 2 Implanted:Qty : 5 on 02/04/2011 at RADIOLOGY [facility] [place] Left: Pelvis Hithru / / [id number] Description:figure 8 documented as of this encounter Visit Diagnoses Diagnosis Type 2 diabetes mellitus with stage 3b chronic kidney disease, 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) Gout Gout, unspecified 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) Hyperlipidemia with target LDL less than 70 Other and unspecified hyperlipidemia Age-related osteoporosis without current pathological fracture Senile osteoporosis HTN, goal below 140/90 Unspecified essential hypertension Gastroesophageal reflux disease without esophagitis Esophageal reflux documented in this encounter Advance Directives Documents on File Type Date Recorded Patient Mental Health Unit Lead Psychologist Expl anation Advance Directives and Livin g Will 09/29/2017 LIVING WILL Power of Boring Inspector 09/29/2017 POWER OF A TTORNEY Latest Code [...] the patient have Health Care Power of Boring Inspector? No Full Code 01/18/2010 8:53 PM 01/30/2010 6:41 PM This o rder reflects the patients wishes and were consensually agreed upon. Question Answer Comments Discussion of Advance Directives occurred with: Patient Does the patient have a Living Will? No Does the patient have Health Care Power of Boring Inspector? No Full Code 11/18/2009 11:54 AM 11/19/2009 4:09 PM This o rder reflects the patients wishes and were consensually agreed upon. Question Answer Comments Discussion of Advance Directives occurred with: Patient Does the patient have a Living Will? No Does the patient have Health Care Power of Boring Inspector? No Full Code 11/13/2009 8:29 AM 11/14/2009 5:08 PM This order reflects the patients wishes and were consensually agreed upon. Care Teams Color Checker Relationship Specialty Start Date End Date Madhuri Galicia DO [address] [place] [address] [place] [address] PCP - General Internal Medicine 02/16/17 documented as of this encounter
--- OUTSIDE RECORDS SUMMARY | 2023-11-22 09:00 | External Medical Summary ---
Author Name Unknown Address Unknown Organization [id number]:[facility] [place] [address] [facility] [address] Laboratory Report Ordering Provider Test Date Status SERINA STEVENSON 08/25/2023 12:18:06 Final Observation Date Value Abnormality Reference (Units ) Status HbA1C 08/25/2023 12:18:06 5.8 Above high normal 4. 0-5.6 (%) Final The use of HbA1c to monitor glycemic status is based on normal hemoglobin and HbA composition. This test should not be used in patients with abnormal hemoglobin that affects the half life of the red blood cell or the in vivo glycation rates. Glucose, estimated average 08/25/2023 12:18:06 120 <126 (mg/dL) Final Performing Location [facility] [place] [address] [facility] [address]
--- OUTSIDE RECORDS SUMMARY | 2023-11-22 09:00 | External Medical Summary | Summary of Care ---
Author Name Unknown Organization [facility] Address [address] [facility] [place] [address] Phone [phone] Care Team Providers Care Sales And In Home Delivery Specialist Name Role Phone Madhuri Galicia DO Primary Care Provider + [phone] Reason for Referral * Medication Prior Authorization - Authorized Specialty Diagnoses / Procedures Referred By Contac t Referred To Contact Diagnoses HTN, goal below 140/90 Roly Sagastume CRNP [address] [place] [address] [place] [address] Referral ID Status Reason Start Date Expiration Date V isits Requested Visits Authorized [id number] Authorized 07/24/2023 07/18/2099 999 999 Reason for Visit * Reason Comments Re-Check Encounter Details Date Type Department Care Team (Late st Contact Info) Description 08/23/2023 10:20 AM EST Office Visit Family Medicine [address] [place] [phone] Roly Sagastume CRNP [address] [place] [address] [place] [address] Type 2 diabetes mellitus with hemoglobin A1c goal of less than 8.0% (HCC)*; Gout; 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); Type 2 diabetes mellitus with stage 3b chronic kidney disease, 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 (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); Hyperlipidemia with target LDL [...] hemoglobin A1c goal of less than 8.0% ([facility]) Use to test blood sugar [...] hemoglobin A1c goal of less than 8.0% ([facility]) Inject 1.5 mg under the [...] MANAGEMENT 11/18/200905/05 Overview: Stefanie Powell RN Outpatient Fly Frame TenderBudget Specialist number [phone] Fax number [phone] Hypotension 11/08/2009 12/19/2012 Follow-up examination, lyndseyo wing [...] mRNA, LNP-s, No Pre serve, 2-Dose Series ([employer]) 05/27/2021 COVID-19, LNP-s, No Preserve , Rodrick-sucrose, Ages 12+ ([employer]) 02/03/2022 COVID-19, MRNA-LNP, 23-24, P F, 30 MCG/0.3 mL, 12 YRS AND ABOVE, IM ([employer]-Comirnaty) 04/27/2023 Covid-19 Ad26, Single Dose ([employer]/J&J) 10/25/2020 Covid-19, Mrna, Lnp-s, Pf, B ivalent, 30 Mcg, IM, 12 yrs and above ([employer]) 06/09/2022 H1N1 2009 Influenza, IM 08/02/2009 Pneumococcal [...] difficulty with ambulation. Patient was transferred to [facility] for rehab placement and d/c on 08/04/23.Pt [...] stage 3b chronic kidney disease, 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 (HCC) - asymptomatic today will [...] lbs bout 2-3 weeks ago Was in residential at [facility]. documented in this encounter Plan of Treatment Upcoming Encounters Date Type Department Care Team (Late st Contact Info) Description 08/24/2023 1:00 PM EST Laboratory Laboratory [address] [place] [phone] [place], Lab [address] [place] [address] 08/25/2023 7:00 AM EST Anticoagulation Pharmacy, [address] [place] [address] [place] [address] 09/21/2023 1:00 PM EST Office Visit Family Medicine [address] [place] [phone] Roly Sagastume CRNP [address] [place] [address] [place] [address] 01/19/2024 1:30 PM EDT Imaging Radiology [address] [place] [address] 06/14/2024 1:00 PM EST Nurse Only Ancillary [place] [address] [place] [address] [place] Nurse [address] [place] [address] Scheduled Orders Name Type Priority Associated Diagnoses [...] 01/15/2022, Additional history exists GFR 01/26/2024 07/28/2023, 01/0 09/2023, 06/17/2023, Additional history exists B-12 01/27/2024 01/26/2023, 10/18, 10/18/2020, Additional history exists CKD PHOS USE SMARTSET 55305 01/27/202401/16, 11/05/2021, 10/18/2020, Additional history exists Albumin/Creatinine Ratio 01/28/2024 023, 11/06/2021, 01/03/2020, Additional history exists Diabetic Eye Exam 02/20/2024 02/19/2023, , 11/23/2021, Additional history exists Depression Screening 06/08/2024 06/08/2023 CKD HGB USE SMARTSET 57190 07/28/202407/28, 07/21/2023, 06/17/2023, Additional history exists DXA Scan 12/02/2024 12/02/2022, 11/16, 02/11/2015, Additional history exists DTaP,Tdap,and Td Vaccines (3 - Td or Tdap) 04/26/2029 04/26/2019, 04/26/2019, 02/09/2008 Hepatitis C Screening Completed 01/20/2010, 010 Pneumococcal Vaccine: 65+ Years Completed 06/08/2016, 03/06/2015, 12/21/2014, Additional history exists Zoster Vaccines Completed 05/30/2019, 05/19, 03/29/2019, Additional history exists VITAMIN D LEVEL ONCE IN A LIFETIME-USE SMARTSET# [id number] Completed 01/26/2023, 01/03/2020, 04/22/2018, Additional history exists [...] this encounter Medical Devices Implanted Type Area Painter Assistant Device Identifier Shelf Expiration Date Model / Serial / Lot Alloderm 2x4 Sheet [id number] - [id number] Implanted:Qty : 1 on 11/08/2009 at OR [facility] [place] Tissue - Human N/A: Abdomen LIFE CELL AFIA 02/16/2011 [id number] / / [id number] Mesh 10 X 14 [id number] - [id number] Implanted:Qty : 1 on 02/02/2011 at [place] [facility] [place] N/A: Abdomen [employer] AFIA 01/03/2015 [id number] / / [id number] Pelvic Coil 2 Implanted:Qty : 5 on 02/04/2011 at RADIOLOGY [facility] [place] Left: Pelvis [employer] / / [id number] Description:figure 8 documented as of this encounter Visit Diagnoses Diagnosis Type 2 diabetes mellitus with stage 3b chronic kidney disease, 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 (HCC) Gout Gout, unspecified 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) Hyperlipidemia with target LDL less than 70 Other and unspecified hyperlipidemia Age-related osteoporosis without current pathological fracture Senile osteoporosis HTN, goal below 140/90 Unspecified essential hypertension Gastroesophageal reflux disease without esophagitis Esophageal reflux documented in this encounter Advance Directives Documents on File Type Date Recorded Patient Journal Entry Audit Clerk Expl anation Advance Directives and Livin g Will 09/29/2017 LIVING WILL Power of Insurance Sales Manager 09/29/2017 POWER OF A TTORNEY Latest [...] the patient have Health Care Power of Insurance Sales Manager? No Full Code 01/18/2010 8:53 PM 01/30/2010 6:41 PM This o rder reflects the patients wishes and were consensually agreed upon. Question Answer Comments Discussion of Advance Directives occurred with: Patient Does the patient have a Living Will? No Does the patient have Health Care Power of Insurance Sales Manager? No Full Code 11/18/2009 11:54 AM 11/19/2009 4:09 PM This o rder reflects the patients wishes and were consensually agreed upon. Question Answer Comments Discussion of Advance Directives occurred with: Patient Does the patient have a Living Will? No Does the patient have Health Care Power of Insurance Sales Manager? No Full Code 11/13/2009 8:29 AM 11/14/2009 5:08 PM This order reflects the patients wishes and were consensually agreed upon. Care Teams Sales And In Home Delivery Specialist Relationship Specialty Start Date End Date Madhuri Galicia DO [address] [place] [address] [place] [address] PCP - General Internal Medicine 02/16/17 documented as of this encounter
--- OUTSIDE RECORDS SUMMARY | 2023-11-22 09:00 | External Medical Summary | Summary of Care ---
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 06/08/16 States she does not have allergy to Ben inhibitors 03/29/2019 documented as of this encounter (statuses as of 08/19/2023) Medications Medication Sig Dispensed Refills Start Date [...] as of this encounter (statuses as of 08/19/2023) Active Problems Problem Noted Date Diagnosed Date [...] as of this encounter (statuses as of 08/19/2023) Resolved Problems Problem Noted Date Diagnosed Date [...] MANAGEMENT 11/18/200905/05 Overview: Stefanie Powell RN Outpatient Kindergarten TeacherAircraft Sheet Metal Mechanic number [phone] Fax number [phone] Hypotension 11/08/2009 12/19/2012 Follow-up examination, follo wing [...] as of this encounter (statuses as of 08/19/2023) Immunizations Name Administration Dates Next Due COVID-19 mRNA, LNP-s, No Pre serve, 2-Dose Series ([employer]) 05/27/2021 COVID-19, LNP-s, No Preserve , Rodrick-sucrose, Ages 12+ ([employer]) 02/03/2022 COVID-19, MRNA-LNP, 23-24, P F, 30 MCG/0.3 mL, 12 YRS AND ABOVE, IM (Re[employer]-Avillion) 04/27/2023 Covid-19 Ad26, Single Dose (BoomBang/Chinacars[employer]) 10/25/2020 Covid-19, Mrna, Lnp-s, Pf, B ivalent, 30 Mcg, IM, 12 yrs and above ([employer]) 06/09/2022 H1N1 2009 Influenza, IM 08/02/2009 Pneumococcal [...] Progress Notes * Augusta Kessler RPh - 08/19/2023 8:22 AM EST Patient Phone Numbers Current Lovenox Dose: 50mg daily Latest Reference Range & Units 08/16/23 12:34 Heparin, Low Molecular Weight <0.10 IU/mL 1.17 (H) (H): Data is abnormally high Called and spoke to patient and spouse. Instructed to decrease dose to 40mg daily (~20% decrease). Patient prefers to obtain labs 4 hours after AM dose on 08/20. Lovenox Dose: 40mg daily Of note, patient has x6 syringes left. Will plan to send new supply in at next call. (Likely to be 40mg syringes) Augusta Kessler RPh, PharmD Clinical Pharmacist - [facility] 08/19/2023, 8:22 AM [phone] documented in this encounter Plan of Treatment Upcoming Encounters Date Type Department Care Team (Late st Contact Info) Description 08/23/2023 7:00 AM EST Anticoagulation Pharmacy, [address] [place] [address] [facility] [address] [place] [address] 08/23/2023 10:20 AM EST Office Visit Family Medicine [address] [place] [phone] Roly Sagastume [address] [place] [address] 01/19/2024 1:30 PM EDT Imaging Radiology [address] [place] [address] 06/14/2024 1:00 PM EST Nurse Only Ancillary [address] [place] [address] [place], Nurse Annual [address] [place] [address] Health Maintenance Due Date Last Done Comments [...] Additional history exists CKD PHOS USE SMARTSET 78032 01/27/202401/16, 11/05/2021, 10/18/2020, Additional history exists Albumin/Creatinine Ratio 01/28/2024 023, 11/06/2021, 01/03/2020, Additional history exists Diabetic Eye Exam 02/20/2024 02/19/2023, , 11/23/2021, Additional history exists Depression Screening 06/08/2024 06/08/2023 CKD HGB USE SMARTSET 13044 07/28/202407/28, 07/21/2023, 06/17/2023, Additional history exists DXA Scan 12/02/2024 12/02/2022, 11/16, 02/11/2015, Additional history exists DTaP,Tdap,and Td Vaccines (3 - Td or Tdap) 04/26/2029 04/26/2019, 04/26/2019, 02/09/2008 Hepatitis C Screening Completed 01/20/2010, 010 Pneumococcal Vaccine: 65+ Years Completed 06/08/2016, 03/06/2015, 12/21/2014, Additional history exists Zoster Vaccines Completed 05/30/2019, 05/19, 03/29/2019, Additional history exists VITAMIN D LEVEL ONCE IN A LIFETIME-USE SMARTSET# [id number] Completed 01/26/2023, 01/03/2020, 04/22/2018, Additional history exists [...] this encounter Medical Devices Implanted Type Area Software Development Leader Device Identifier Shelf Expiration Date Model / Serial / Lot Alloderm 2x4 Sheet [id number] - [id number] Implanted:Qty : 1 on 11/08/2009 at [place] [facility] [place] Tissue - Human N/A: Abdomen LIFE CELL AFIA 02/16/2011 [id number] / / [id number] Mesh 10 X 14 [id number] - [id number] Implanted:Qty : 1 on 02/02/2011 at OR [facility] [place] N/A: Abdomen A[employer]IUM MED[employer] AFIA 01/03/2015 [id number] / / [id number] Pelvic Coil 2 Implanted:Qty : 5 on 02/04/2011 at RADIOLOGY [facility] [place] Left: Pelvis [employer] / / [id number] Description:figure 8 documented as of this encounter Visit Diagnoses Diagnosis 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 No Full Code 01/18/2010 8:53 PM 01/30/2010 6:41 PM This o rder reflects the patients wishes and were consensually agreed upon. Question Answer Comments Discussion of Advance Directives occurred with: Patient Does the patient have a Living Will? No Does the patient have Health Care Power of Take Up Supervisor? No Full Code 11/18/2009 11:54 AM 11/19/2009 4:09 PM This o rder reflects the patients wishes and were consensually agreed upon. Question Answer Comments Discussion of Advance Directives occurred with: Patient Does the patient have a Living Will? No Does the patient have Health Care Power of Take Up Supervisor? No Full Code 11/13/2009 8:29 AM 11/14/2009 5:08 PM This order reflects the patients wishes and were consensually agreed upon. Care Teams Slider Assembler Relationship Specialty Start Date End Date Madhuri Galicia DO [address] [place] [address] [place] [address] PCP - General Internal Medicine 02/16/17 documented as of this encounter
--- OUTSIDE RECORDS SUMMARY | 2023-11-22 09:01 | External Medical Summary | Summary of Care ---
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 06/08/16 States she does not have allergy to Ben inhibitors 03/29/2019 documented as of this encounter (statuses as of 08/18/2023) Medications Medication Sig Dispensed Refills Start Date [...] hemoglobin A1c goal of less than 8.0% ([facility]) Take 1 Tablet by mouth in [...] hemoglobin A1c goal of less than 8.0% ([facility]) Inject 1.5 mg under the skin once a week. 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 At 9am. 6 mL 0 08/14/2023 Active documented as of this encounter (statuses as of 08/18/2023) Active Problems Problem Noted Date Diagnosed Date [...] as of this encounter (statuses as of 08/18/2023) Resolved Problems Problem Noted Date Diagnosed Date [...] MANAGEMENT 11/18/200905/05 Overview: Stefanie Powell RN Outpatient Weapons Officer Naval ActivityNut Sorter Operator number [phone] Fax number [phone] Hypotension 11/08/2009 12/19/2012 Follow-up examination, follo wing [...] 02/17/2008 03/12/2017 Anticoagulation management encounter 02/17/2008 08/20/2008 care home current use of ant icoagulant therapy [...] as of this encounter (statuses as of 08/18/2023) Immunizations Name Administration Dates Next Due COVID-19 mRNA, LNP-s, No Pre serve, 2-Dose Series ([employer]) 05/27/2021 COVID-19, LNP-s, No Preserve , Rodrick-sucrose, Ages 12+ (Pfizer) 02/03/2022 COVID-19, MRNA-LNP, 23-24, P F, 30 MCG/0.3 mL, 12 YRS AND ABOVE, IM (PLDT-YotpoirCashEdge) 04/27/2023 Covid-19 Ad26, Single Dose ([employer]) 10/25/2020 Covid-19, Mrna, Lnp-s, Pf, B ivalent, 30 Mcg, IM, 12 yrs and above ([employer]) 06/09/2022 H1N1 2009 Influenza, IM 08/02/2009 Pneumococcal [...] Care Team (Late st Contact Info) Description 08/19/2023 7:00 AM EST Anticoagulation Pharmacy, [address] [place] [address] [place] [address] 08/23/2023 10:20 AM EST Office Visit Family Medicine [address] [place] [phone] Roly Sagastume CRNP [address] [place] [address] [place] [address] 01/19/2024 1:30 PM EDT Imaging Radiology [address] [place] [address] 06/14/2024 1:00 PM EST Nurse Only Ancillary [address] [place] [address] [place], Nurse [address] [place] [address] Pending Results Name Type Priority Associated Diagnoses Date /Time HEPARIN, LOW MOLECULAR WEIGHT Lab Routine 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) 08/18/2023 12:28 PM EST Health Maintenance Due Date Last [...] Additional history exists CKD PHOS USE SMARTSET 48673 01/27/202401/16, 11/05/2021, 10/18/2020, Additional history exists Albumin/Creatinine Ratio 01/28/2024 023, 11/06/2021, 01/03/2020, Additional history exists Diabetic Eye Exam 02/20/2024 02/19/2023, , 11/23/2021, Additional history exists Depression Screening 06/08/2024 06/08/2023 CKD HGB USE SMARTSET 97081 07/28/202407/28, 07/21/2023, 06/17/2023, Additional history exists DXA Scan 12/02/2024 12/02/2022, 11/16, 02/11/2015, Additional history exists DTaP,Tdap,and Td Vaccines (3 - Td or Tdap) 04/26/2029 04/26/2019, 04/26/2019, 02/09/2008 Hepatitis C Screening Completed 01/20/2010, 010 Pneumococcal Vaccine: 65+ Years Completed 06/08/2016, 03/06/2015, 12/21/2014, Additional history exists Zoster Vaccines Completed 05/30/2019, 05/19, 03/29/2019, Additional history exists VITAMIN D LEVEL ONCE IN A LIFETIME-USE SMARTSET# [id number] Completed 01/26/2023, 01/03/2020, 04/22/2018, Additional history exists [...] this encounter Medical Devices Implanted Type Area Scrap Materials Buyer Device Identifier Shelf Expiration Date Model / Serial / Lot Alloderm 2x4 Sheet [id number] - [id number] Implanted:Qty : 1 on 11/08/2009 at [place] [facility] [place] Tissue - Human N/A: Abdomen LIFE CELL AFIA 02/16/2011 [id number] / / [id number] Mesh 10 X 14 [id number] - [id number] Implanted:Qty : 1 on 02/02/2011 at [place] [facility] [place] N/A: Abdomen A[employer]IUM MED[employer] AFIA 01/03/2015 [id number] / / [id number] Pelvic Coil 2 Implanted:Qty : 5 on 02/04/2011 at RADIOLOGY [facility] [place] Left: Pelvis [employer] / / [id number] Description:figure 8 documented as of this encounter Visit Diagnoses Diagnosis 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 No Full Code 01/18/2010 8:53 PM 01/30/2010 6:41 PM This o rder reflects the patients wishes and were consensually agreed upon. Question Answer Comments Discussion of Advance Directives occurred with: Patient Does the patient have a Living Will? No Does the patient have Health Care Power of Dry Can Tender? No Full Code 11/18/2009 11:54 AM 11/19/2009 4:09 PM This o rder reflects the patients wishes and were consensually agreed upon. Question Answer Comments Discussion of Advance Directives occurred with: Patient Does the patient have a Living Will? No Does the patient have Health Care Power of Dry Can Tender? No Full Code 11/13/2009 8:29 AM 11/14/2009 5:08 PM This order reflects the patients wishes and were consensually agreed upon. Care Teams Centralized Traffic Control Operator Relationship Specialty Start Date End Date Madhuri Galicia DO [address] [place] [address] [place] [address] PCP - General Internal Medicine 02/16/17 documented as of this encounter
--- OUTSIDE RECORDS SUMMARY | 2023-11-22 09:01 | External Medical Summary | Summary of Care ---
Author Name Unknown Organization [facility] Address [address] [place] [address] Phone [phone] Care Team Providers Care Cash Applications Specialist Name Role Phone Madhuri Galicia DO Primary Care Provider [phone] Reason for Visit * Reason Comments Dosage Adjustment Via Phone (anticoag Cl inic) Encounter Details Date Type Department Care Team (Latest Contact Info) Description 08/14/2023 7:00 AM EST Anticoagulation Pharmacy Call Center [phone] [place] [address] 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 At 9am. 6 mL 0 08/14/2023 Active Enoxaparin Sodium 60 MG/0.6ML Injection Solution Prefilled Syringe (Lovenox) Inject 40 mg under the skin in the morning and 40 mg before bedtime. At 8am and 8pm.. 0 07/09/2023 Discontinued documented as of this encounter (statuses as of 08/16/2023) Active Problems Problem Noted Date Diagnosed Date [...] as of this encounter (statuses as of 08/16/2023) Resolved Problems Problem Noted Date Diagnosed Date [...] MANAGEMENT 11/18/200905/05 Overview: Stefanie Powell RN Outpatient Professor Of Mechanical EngineeringLion Trainer number [phone] Fax number [phone] Hypotension 11/08/2009 12/19/2012 Follow-up examination, follo wing [...] as of this encounter (statuses as of 08/16/2023) Immunizations Name Administration Dates Next Due COVID-19 mRNA, LNP-s, No Pre serve, 2-Dose Series ([employer]) 05/27/2021 COVID-19, LNP-s, No Preserve , Rodrick-sucrose, Ages 12+ ([employer]) 02/03/2022 COVID-19, MRNA-LNP, 23-24, P F, 30 MCG/0.3 mL, 12 YRS AND ABOVE, IM ([employer] Guide-[employer]) 04/27/2023 Covid-19 Ad26, Single Dose ([employer]uropody/[employer]&MedAptus) 10/25/2020 Covid-19, Mrna, Lnp-s, Pf, B ivalent, 30 Mcg, IM, 12 yrs and above ([employer]) 06/09/2022 H1N1 2009 Influenza, IM 08/02/2009 Pneumococcal [...] as of this encounter Progress Notes * Lester Barber RPh - 08/16/2023 10:17 AM EST Agree with plan as documented. Lester Barber [facility] Clinical Pharmacist 08/16/2023, 10:17 AM * Nereyda Vargas RP - 08/14/2023 8:20 AM EST Patient Phone Numbers Current Lovenox dose: 80 mg daily Latest Reference Range & Units 07/08/23 11:49 08/13/23 13:00 Heparin, Low Molecular Weight <0.10 IU/mL 1.53 (H) 1.68 (H) (H): Data is abnormally high Called and spoke to patient. Pt has 80 mg Lovenox syringe at home. Confirmed pt's technique for wasting. Instructed to decrease dose to 60 mg daily (~30%). Will plan to obtain labs 4 hours after AM dose on 08/16. Pt agreeable. New Lovenox Dose: 60 mg daily Scheduled pt for f/u on 08/16 with [facility]. Advised patient to contact [facility] if any unusual bruising or bleeding, issues obtaining medication from pharmacy, or questions/concerns. Nereyda Vargas, RodriguezD PGY1 Slat Basket Top Maker 08/14/2023 8:23 AM documented in this encounter Plan of Treatment Upcoming Encounters Date Type Department Care Team (Late st Contact Info) Description 08/16/2023 1:10 PM EST Laboratory Laboratory [address] [place] [phone] [place], Lab [address] [place] [address] 08/16/2023 2:40 PM EST Anticoagulation Pharmacy, [address] [place] [address] [facility] [address] [place] [address] 08/23/2023 10:20 AM EST Office Visit Family Medicine [address] [place] [phone] Roly Sagastume [address] [place] [address] 01/19/2024 1:30 PM EDT Imaging Radiology [address] [place] [address] 06/14/2024 1:00 PM EST Nurse Only Ancillary [address] [place] [address] [place], Nurse Annual Wellness [address] [place] [address] [place] [address] Scheduled Orders Name Type Priority Associated Diagnoses Orde r Schedule HEPARIN, LOW MOLECULAR WEIGHT Lab Routine 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) Expected: 08/16/2023, Expires: 08/14/2024 Health Maintenance Due Date Last Done Comments [...] Additional history exists CKD PHOS USE SMARTSET 44325 01/27/202401/16, 11/05/2021, 10/18/2020, Additional history exists Albumin/Creatinine Ratio 01/28/2024 023, 11/06/2021, 01/03/2020, Additional history exists Diabetic Eye Exam 02/20/2024 02/19/2023, , 11/23/2021, Additional history exists Depression Screening 06/08/2024 06/08/2023 CKD HGB USE SMARTSET 15112 07/28/202407/28, 07/21/2023, 06/17/2023, Additional history exists DXA Scan 12/02/2024 12/02/2022, 11/16, 02/11/2015, Additional history exists DTaP,Tdap,and Td Vaccines (3 - Td or Tdap) 04/26/2029 04/26/2019, 04/26/2019, 02/09/2008 Hepatitis C Screening Completed 01/20/2010, 010 Pneumococcal Vaccine: 65+ Years Completed 06/08/2016, 03/06/2015, 12/21/2014, Additional history exists Zoster Vaccines Completed 05/30/2019, 05/19, 03/29/2019, Additional history exists VITAMIN D LEVEL ONCE IN A LIFETIME-USE SMARTSET# [id number] Completed 01/26/2023, 01/03/2020, 04/22/2018, Additional history exists [...] this encounter Medical Devices Implanted Type Area Stage Driver Device Identifier Shelf Expiration Date Model / Serial / Lot Alloderm 2x4 Sheet [id number] - [id number] Implanted:Qty : 1 on 11/08/2009 at [place] [facility] [place] Tissue - Human N/A: Abdomen LIFE CELL AFIA 02/16/2011 [id number] / / [id number] Mesh 10 X 14 [id number] - [id number] Implanted:Qty : 1 on 02/02/2011 at OR [facility] [place] N/A: Abdomen A[employer] AFIA 01/03/2015 [id number] / / [id number] Pelvic Coil 2 Implanted:Qty : 5 on 02/04/2011 at RADIOLOGY [facility] [place] Left: Pelvis [employer] / / [id number] Description:figure 8 documented as of this encounter Visit Diagnoses Diagnosis 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 No Full Code 01/18/2010 8:53 PM 01/30/2010 6:41 PM This o rder reflects the patients wishes and were consensually agreed upon. Question Answer Comments Discussion of Advance Directives occurred with: Patient Does the patient have a Living Will? No Does the patient have Health Care Power of Glove Former? No Full Code 11/18/2009 11:54 AM 11/19/2009 4:09 PM This o rder reflects the patients wishes and were consensually agreed upon. Question Answer Comments Discussion of Advance Directives occurred with: Patient Does the patient have a Living Will? No Does the patient have Health Care Power of Glove Former? No Full Code 11/13/2009 8:29 AM 11/14/2009 5:08 PM This order reflects the patients wishes and were consensually agreed upon. Care Teams Cash Applications Specialist Relationship Specialty Start Date End Date Madhuri Galicia DO [address] [place] [address] [place] [address] PCP - General Internal Medicine 02/16/17 documented as of this encounter
--- OUTSIDE RECORDS SUMMARY | 2023-11-22 09:01 | External Medical Summary | Summary of Care ---
Author Name Unknown Organization [facility] Address [address] [place] [place] [address] Phone [phone] Care Team Providers Care Clay Modeler Name Role Phone Madhuri Galicia DO Primary Care Provider [phone] Reason for Visit * Reason Comments Outpatient Testing Encounter Details Date Type Department Care Team (Late st Contact Info) Description 08/16/2023 1:10 PM EST Laboratory Laboratory [address] [place] [phone] [place] [address] Recurrent acute deep vein thrombosis (DVT) of [...] MANAGEMENT 11/18/200905/05 Overview: Stefanie Powell RN Outpatient Collar Padder BlindstitchPacking And Final Assembly Supervisor number [phone] Fax number [phone] Hypotension 11/08/2009 12/19/2012 Follow-up examination, follo wing [...] 03/12/2017 Anticoagulation management encounter 02/17/2008 08/20/2008 manager long term care current use of ant icoagulant therapy 02/17/2008 [...] mRNA, LNP-s, No Pre serve, 2-Dose Series (YelloYello) 05/27/2021 COVID-19, LNP-s, No Preserve , Rodrick-sucrose, Ages 12+ (Pfizer) 02/03/2022 COVID-19, MRNA-LNP, 23-24, P F, 30 MCG/0.3 mL, 12 YRS AND ABOVE, IM (Panono-ComirAnagear) 04/27/2023 Covid-19 Ad26, Single Dose ([employer]/Crocs&Crocs) 10/25/2020 Covid-19, Mrna, Lnp-s, Pf, B ivalent, 30 Mcg, IM, 12 yrs and above (YelloYello) 06/09/2022 H1N1 2009 Influenza, IM 08/02/2009 Pneumococcal [...] Care Team (Late st Contact Info) Description 08/17/2023 7:00 AM EST Anticoagulation Pharmacy, [address] [place] [address] [place] [address] 08/23/2023 10:20 AM EST Office Visit Family Medicine [address] [place] [phone] Roly Sagastume CRNP [address] [place] [address] [place] [address] 01/19/2024 1:30 PM EDT Imaging Radiology [address] [place] [address] 06/14/2024 1:00 PM EST Nurse Only Ancillary [address] [place] [address] Daniella, Nurse [address] [place] [address] Pending Results Name Type Priority Associated Diagnoses Date /Time HEPARIN, LOW MOLECULAR WEIGHT Lab Routine 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) 08/16/2023 12:34 PM EST Health Maintenance Due Date Last [...] Additional history exists CKD PHOS USE SMARTSET 01433 01/27/202401/16, 11/05/2021, 10/18/2020, Additional history exists Albumin/Creatinine Ratio 01/28/2024 023, 11/06/2021, 01/03/2020, Additional history exists Diabetic Eye Exam 02/20/2024 02/19/2023, , 11/23/2021, Additional history exists Depression Screening 06/08/2024 06/08/2023 CKD HGB USE SMARTSET 37405 07/28/202407/28, 07/21/2023, 06/17/2023, Additional history exists DXA Scan 12/02/2024 12/02/2022, 11/16, 02/11/2015, Additional history exists DTaP,Tdap,and Td Vaccines (3 - Td or Tdap) 04/26/2029 04/26/2019, 04/26/2019, 02/09/2008 Hepatitis C Screening Completed 01/20/2010, 010 Pneumococcal Vaccine: 65+ Years Completed 06/08/2016, 03/06/2015, 12/21/2014, Additional history exists Zoster Vaccines Completed 05/30/2019, 05/19, 03/29/2019, Additional history exists VITAMIN D LEVEL ONCE IN A LIFETIME-USE SMARTSET# [id number] Completed 01/26/2023, 01/03/2020, 04/22/2018, Additional history exists [...] this encounter Medical Devices Implanted Type Area Insulation Installer Device Identifier Shelf Expiration Date Model / Serial / Lot Alloderm 2x4 Sheet [id number] - [id number] Implanted:Qty : 1 on 11/08/2009 at [place] [facility] [place] Tissue - Human N/A: Abdomen LIFE CELL AFIA 02/16/2011 [id number] / / [id number] Mesh 10 X 14 [id number] - [id number] Implanted:Qty : 1 on 02/02/2011 at [place] [facility] [place] N/A: Abdomen [employer] AFIA 01/03/2015 [id number] / / [id number] Pelvic Coil 2 Implanted:Qty : 5 on 02/04/2011 at RAD[facility] [place] Left: Pelvis [employer] / / [id number] Description:figure 8 documented as of this encounter Visit Diagnoses Diagnosis 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) documented in this encounter Advance Directives Documents on File Type Date Recorded Patient Record Changer Expl anation Advance Directives and Vinh jones Will 09/29/2017 LIVING WILL Power of Brazer Electronic 09/29/2017 POWER OF A TTORNEY Latest Code [...] the patient have Health Care Power of Brazer Electronic? No Full Code 01/18/2010 8:53 PM 01/30/2010 6:41 PM This o rder reflects the patients wishes and were consensually agreed upon. Question Answer Comments Discussion of Advance Directives occurred with: Patient Does the patient have a Living Will? No Does the patient have Health Care Power of Brazer Electronic? No Full Code 11/18/2009 11:54 AM 11/19/2009 4:09 PM This o rder reflects the patients wishes and were consensually agreed upon. Question Answer Comments Discussion of Advance Directives occurred with: Patient Does the patient have a Living Will? No Does the patient have Health Care Power of Brazer Electronic? No Full Code 11/13/2009 8:29 AM 11/14/2009 5:08 PM This order reflects the patients wishes and were consensually agreed upon. Care Teams Clay Modeler Relationship Specialty Start Date End Date Madhuri Galicia DO [address] [place] [address] [place] [address] PCP - General Internal Medicine 02/16/17 documented as of this encounter
--- OUTSIDE RECORDS SUMMARY | 2023-11-22 09:01 | External Medical Summary | Summary of Care ---
Author Name Unknown Organization [facility] Address [address] [facility] [place] [address] Phone [phone] Care Team Providers Care Lead Fire Protection Engineer Name Role Phone Madhuri Galicia DO Primary Care Provider Encounter Details Date Type Department Care Team (Late st Contact Info) Description 08/18/2023 Orders Only PATIENT PORTAL DO NOT DELETE THIS DEPT USED BY [place]ONN[place] [address] [id number] Allergies Active Allergy Reactions Criticality Noted Date [...] MANAGEMENT 11/18/200905/05 Overview: Stefanie Powell RN Outpatient Hand Spring FormerGas Jockey number [phone] Fax number [phone] Hypotension 11/08/2009 12/19/2012 Follow-up examination, follo wing [...] MCG/0.3 mL, 12 YRS AND ABOVE, IM ([employer]-ComirnatBlueVox) 04/27/2023 Covid-19 Ad26, Single Dose (Egodeus/J&SOASTA) 10/25/2020 Covid-19, Mrna, Lnp-s, Pf, B ivalent, [...] Description 08/19/2023 7:00 AM EST Anticoagulation Pharmacy, [address] [place] [address] [place] [address] 08/23/2023 10:20 AM EST Office Visit Family Medicine [address] [place] [phone] Roly Sagastume [address] [place] [address] 01/19/2024 1:30 PM EDT Imaging Radiology [address] [place] [address] 06/14/2024 1:00 PM EST Nurse Only Ancillary [address] [place] [address] Daniella, Nurse Annual [address] [place] [address] Health Maintenance Due Date Last Done Comments [...] Additional history exists CKD PHOS USE SMARTSET 82600 01/27/202401/16, 11/05/2021, 10/18/2020, Additional history exists Albumin/Creatinine Ratio 01/28/2024 023, 11/06/2021, 01/03/2020, Additional history exists Diabetic Eye Exam 02/20/2024 02/19/2023, , 11/23/2021, Additional history exists Depression Screening 06/08/2024 06/08/2023 CKD HGB USE SMARTSET 41246 07/28/202407/28, 07/21/2023, 06/17/2023, Additional history exists DXA Scan 12/02/2024 12/02/2022, 11/16, 02/11/2015, Additional history exists DTaP,Tdap,and Td Vaccines (3 - Td or Tdap) 04/26/2029 04/26/2019, 04/26/2019, 02/09/2008 Hepatitis C Screening Completed 01/20/2010, 010 Pneumococcal Vaccine: 65+ Years Completed 06/08/2016, 03/06/2015, 12/21/2014, Additional history exists Zoster Vaccines Completed 05/30/2019, 05/19, 03/29/2019, Additional history exists VITAMIN D LEVEL ONCE IN A LIFETIME-USE SMARTSET# 34894 Completed 01/26/2023, 01/03/2020, 04/22/2018, Additional history exists [...] this encounter Medical Devices Implanted Type Area Endoscopy Technican Device Identifier Shelf Expiration Date Model / Serial / Lot Alloderm 2x4 Sheet [id number] - [id number] Implanted:Qty : 1 on 11/08/2009 at [place] [facility] [place] Tissue - Human N/A: Abdomen LIFE CELL AFIA 02/16/2011 [id number] / / [id number] Mesh 10 X 14 [id number] - [id number] Implanted:Qty : 1 on 02/02/2011 at [place] [facility] [place] N/A: Abdomen [employer] AFIA 01/03/2015 [id number] / / [id number] Pelvic Coil 2 Implanted:Qty : 5 on 02/04/2011 at [facility] [place] Left: Pelvis dakick / / [id number] Description:figure 8 documented as of this encounter Advance Directives Documents on File Type Date Recorded Patient Licensed Retail Supervisor Expl anation Advance Directives and Livin g Will 09/29/2017 LIVING WILL Power of Manager Home Healthcare 09/29/2017 POWER OF A TTORNEY Latest Code [...] patient have Health Care Power of Manager Home Healthcare? No Full Code 01/18/2010 8:53 PM 01/30/2010 6:41 PM This o rder reflects the patients wishes and were consensually agreed upon. Question Answer Comments Discussion of Advance Directives occurred with: Patient Does the patient have a Living Will? No Does the patient have Health Care Power of Manager Home Healthcare? No Full Code 11/18/2009 11:54 AM 11/19/2009 4:09 PM This o rder reflects the patients wishes and were consensually agreed upon. Question Answer Comments Discussion of Advance Directives occurred with: Patient Does the patient have a Living Will? No Does the patient have Health Care Power of Manager Home Healthcare? No Full Code 11/13/2009 8:29 AM 11/14/2009 5:08 PM This order reflects the patients wishes and were consensually agreed upon. Care Teams Lead Fire Protection Engineer Relationship Specialty Start Date End Date Madhuri Galicia DO [address] [place] [address] [place] [address] PCP - General Internal Medicine 02/16/17 documented as of this encounter
--- OUTSIDE RECORDS SUMMARY | 2023-11-22 09:01 | External Medical Summary | Summary of Care ---
Author Name Unknown Organization [facility] Address [address] [facility] [place] [address] Phone [phone] Care Team Providers Care Instructional Paraprofessional Name Role Phone Madhuri Galicia DO Primary Care Provider Reason for Visit * Reason Comments Dosage Adjustment Via Phone (anticoag Cl inic) Encounter Details Date Type Department Care Team (Latest Contact Info) Description 08/17/2023 7:00 AM EST Anticoagulation Pharmacy, [address] [place] [address] [place] [address] 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 06/08/16 States she does not have allergy to Ben inhibitors 03/29/2019 documented as of this encounter (statuses as of 08/17/2023) Medications Medication Sig Dispensed Refills Start Date [...] as of this encounter (statuses as of 08/17/2023) Active Problems Problem Noted Date Diagnosed Date [...] as of this encounter (statuses as of 08/17/2023) Resolved Problems Problem Noted Date Diagnosed Date [...] MANAGEMENT 11/18/200905/05 Overview: Stefanie Powell RN Outpatient Managing ManagerRegional Facilities Specialist number [phone] Fax number [phone] Hypotension 11/08/2009 12/19/2012 Follow-up examination, follo wing [...] as of this encounter (statuses as of 08/17/2023) Immunizations Name Administration Dates Next Due COVID-19 mRNA, LNP-s, No Pre serve, 2-Dose Series (Comuto) 05/27/2021 COVID-19, LNP-s, No Preserve , Rodrick-sucrose, Ages 12+ (Comuto) 02/03/2022 COVID-19, MRNA-LNP, 23-24, P F, 30 MCG/0.3 mL, 12 YRS AND ABOVE, IM (The [email or web address]) 04/27/2023 Covid-19 Ad26, Single Dose ([email or web address]) 10/25/2020 Covid-19, Mrna, Lnp-s, Pf, B ivalent, 30 Mcg, IM, 12 yrs and above (Comuto) 06/09/2022 H1N1 2009 Influenza, IM 08/02/2009 Pneumococcal [...] Progress Notes * Augusta Kessler RPh - 08/17/2023 8:22 AM EST Patient Phone Numbers Current Lovenox Dose: 60mg daily Latest Reference Range & Units 08/16/23 12:34 Heparin, Low Molecular Weight <0.10 IU/mL 1.17 (H) (H): Data is abnormally high Called and spoke to patient. Instructed to decrease dose to 50mg daily (~20% decrease). Will plan to obtain labs 4 hours after AM dose on 08/18 Lovenox Dose: 50mg daily Augusta Kessler RPh, PharmD Clinical Pharmacist - Litharge Mill Operator Medication Therapy [facility] 08/17/2023, 8:25 AM [phone] documented in this encounter Plan of Treatment Upcoming Encounters Date Type Department Care Team (Late st Contact Info) Description 08/19/2023 7:00 AM EST Anticoagulation Pharmacy, [address] [place] [address] [place] [address] 08/23/2023 10:20 AM EST Office Visit Family Medicine [address] [place] [phone] Roly Sagastume [address] [place] [address] 01/19/2024 1:30 PM EDT Imaging Radiology [address] [place] [address] 06/14/2024 1:00 PM EST Nurse Only Ancillary [address] [place] [address] [place], Nurse [address] [place] [address] Scheduled Orders Name Type Priority Associated Diagnoses Orde r Schedule HEPARIN, LOW MOLECULAR WEIGHT Lab Routine 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) Expected: 08/18/2023, Expires: 08/17/2024 Health Maintenance Due Date Last Done Comments [...] Additional history exists CKD PHOS USE SMARTSET 37512 01/27/202401/16, 11/05/2021, 10/18/2020, Additional history exists Albumin/Creatinine Ratio 01/28/2024 023, 11/06/2021, 01/03/2020, Additional history exists Diabetic Eye Exam 02/20/2024 02/19/2023, , 11/23/2021, Additional history exists Depression Screening 06/08/2024 06/08/2023 CKD HGB USE SMARTSET 73884 07/28/202407/28, 07/21/2023, 06/17/2023, Additional history exists DXA Scan 12/02/2024 12/02/2022, 11/16, 02/11/2015, Additional history exists DTaP,Tdap,and Td Vaccines (3 - Td or Tdap) 04/26/2029 04/26/2019, 04/26/2019, 02/09/2008 Hepatitis C Screening Completed 01/20/2010, 010 Pneumococcal Vaccine: 65+ Years Completed 06/08/2016, 03/06/2015, 12/21/2014, Additional history exists Zoster Vaccines Completed 05/30/2019, 05/19, 03/29/2019, Additional history exists VITAMIN D LEVEL ONCE IN A LIFETIME-USE SMARTSET# 06583 Completed 01/26/2023, 01/03/2020, 04/22/2018, Additional history exists [...] this encounter Medical Devices Implanted Type Area Director Stars Device Identifier Shelf Expiration Date Model / Serial / Lot Alloderm 2x4 Sheet [id number] - [id number] Implanted:Qty : 1 on 11/08/2009 [place] [facility] [place] - Human N/A: Abdomen [employer] 02/16/2011 [id number] / / [id number] Mesh 10 X 14 [id number] - [id number] Implanted:Qty : 1 on 02/02/2011 at [place] [facility] [place] N/A: Abdomen [employer] AFIA 01/03/2015 [id number] / / [id number] Pelvic Coil 2 Implanted:Qty : 5 on 02/04/2011 at [place] [facility] [place] Left: Pelvis [employer] / / [id number] Description:figure 8 documented as of this encounter Visit Diagnoses Diagnosis 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)- Primary documented in this encounter Advance Directives Documents on File Type Date Recorded Patient Studio Coordinator Expl anation Advance Directives and Livin g Will 09/29/2017 LIVING WILL Power of Needle Grader 09/29/2017 POWER OF A TTORNEY Latest Code [...] the patient have Health Care Power of Needle Grader? No Full Code 01/18/2010 8:53 PM 01/30/2010 6:41 PM This o rder reflects the patients wishes and were consensually agreed upon. Question Answer Comments Discussion of Advance Directives occurred with: Patient Does the patient have a Living Will? No Does the patient have Health Care Power of Needle Grader? No Full Code 11/18/2009 11:54 AM 11/19/2009 4:09 PM This o rder reflects the patients wishes and were consensually agreed upon. Question Answer Comments Discussion of Advance Directives occurred with: Patient Does the patient have a Living Will? No Does the patient have Health Care Power of Needle Grader? No Full Code 11/13/2009 8:29 AM 11/14/2009 5:08 PM This order reflects the patients wishes and were consensually agreed upon. Care Teams Instructional Paraprofessional Relationship Specialty Start Date End Date Madhuri Galicia DO [address] [place] [address] [place] [address] PCP - General Internal Medicine 02/16/17 documented as of this encounter
--- OUTSIDE RECORDS SUMMARY | 2023-11-22 09:01 | External Medical Summary ---
Author Name Unknown Address Unknown Organization K01[place] [facility] [place] [facility] [address] [place] [address] Laboratory Report Ordering Provider Test Date Status SALLYTHOMAS GREERAUSTIN 08/16/2023 12:34:13 Final Observation Date Value Abnormality Reference (Units ) Status LMW Heparin [Units/volume] in Platelet poor plasma by Chromogenic method 08/16/2023 12:34:13 1.17 Above high normal <0.10 (IU/mL) Final Low molecular weight heparin 's therapeutic range is 0.6 - 1.00 I.U./mL. Performing Location [facility] [place] [address] [place] [address]
--- OUTSIDE RECORDS SUMMARY | 2023-11-22 09:01 | External Medical Summary ---
Author Name Unknown Address Unknown Organization K01:[facility] [place] [address] [place] [address] Laboratory Report Ordering Provider Test Date Status PARI COLLADO 08/18/2023 12:28:40 Final Observation Date Value Abnormality Reference (Units ) Status LMW Heparin [Units/volume] in Platelet poor plasma by Chromogenic method 08/18/2023 12:28:40 1.17 Above high normal <0.10 (IU/mL) Final Low molecular weight heparin 's therapeutic range is 0.6 - 1.00 I.U./mL. Performing Location [facility] [place] - [address] [place] [address]
--- OUTSIDE RECORDS SUMMARY | 2023-11-22 09:02 | External Medical Summary | Summary of Care ---
Author Name Unknown Organization [facility] Address [address] [facility] [place] [address] Phone [phone] Care Team Providers Care Type Disk Quality Control Supervisor Name Role Phone Madhuri Galicia DO Primary Care Provider Reason for Visit * Reason Comments Dosage Adjustment Via Phone (anticoag Cl inic) Encounter Details Date Type Department Care Team (Latest Contact Info) Description 08/12/2023 5:10 PM EST Anticoagulation Pharmacy, [address] [place] [address] [place] [address] 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 06/08/16 States she does not have allergy to Ben inhibitors 03/29/2019 documented as of this encounter (statuses as of 08/12/2023) Medications Medication Sig Dispensed Refills Start Date [...] as of this encounter (statuses as of 08/12/2023) Active Problems Problem Noted Date Diagnosed Date [...] as of this encounter (statuses as of 08/12/2023) Resolved Problems Problem Noted Date Diagnosed Date [...] MANAGEMENT 11/18/200905/05 Overview: Stefanie Powell RN Outpatient Garden LabourerPutty Mixer number [phone] Fax number [phone] Hypotension 11/08/2009 12/19/2012 Follow-up examination, follo wing [...] as of this encounter (statuses as of 08/12/2023) Immunizations Name Administration Dates Next Due COVID-19 mRNA, LNP-s, No Pre serve, 2-Dose Series ([employer]) 05/27/2021 COVID-19, LNP-s, No Preserve , Rodrick-sucrose, Ages 12+ (Pfizer) 02/03/2022 COVID-19, MRNA-LNP, 23-24, P F, 30 MCG/0.3 mL, 12 YRS AND ABOVE, IM ([employer]) 04/27/2023 Covid-19 Ad26, Single Dose (Telerik/DailyTicket&DailyTicket) 10/25/2020 Covid-19, Mrna, Lnp-s, Pf, B ivalent, 30 Mcg, IM, 12 yrs and above ([employer] 3) 06/09/2022 H1N1 2009 Influenza, IM 08/02/2009 Pneumococcal [...] Progress Notes * Augusta Kessler RPh - 08/12/2023 4:22 PM EST Patient Phone Numbers Called and spoke with [facility] ([phone]). Stated patient was discharged home on 08/05. Called and spoke to patient. Reports she was discharged home on Lovenox 80mg DAILY. Per chart review, only one Anti-Xa level obtained while admitted on 07/21/23 resulting at 0.27. Dicussed the need for updated labs, will plan to obtain anti-Xa level x4 hours after AM dose to assess and adjust as needed. Lovenox Dose per discharge: 80mg daily Augusta Kessler RPh, PharmD Clinical Pharmacist - Surgeon Assistant Medication Therapy [facility] 08/12/2023, 4:22 PM [phone] documented in this encounter Plan of Treatment Upcoming Encounters Date Type Department Care Team (Late st Contact Info) Description 08/13/2023 5:30 PM EST Anticoagulation Pharmacy, [address] [place] [address] [place] [address] 08/23/2023 10:20 AM EST Office Visit Family Medicine [address] [place] [phone] Roly Sagastume [address] [place] [address] 01/19/2024 1:30 PM EDT Imaging Radiology [address] [place] [address] 06/14/2024 1:00 PM EST Nurse Only Ancillary [address] [place] [address] [place], Nurse [address] [place] [address] Scheduled Orders Name Type Priority Associated Diagnoses Orde r Schedule HEPARIN, LOW MOLECULAR WEIGHT Lab STAT 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) Expected: 08/13/2023, Expires: 08/12/2024 Health Maintenance Due Date Last Done Comments Hepatitis B (1 of 3 - Risk 3-dose series) 2007 COLONOSCOPY-EVERY 5 YRS AGES 18-100 01/05/2018 01/05/2013, 01/05/2013, 06/03/2011, Additional history exists Diabetic Foot Exam 03/29/2020 03/29/2019, 0 03/03/2016, 01/08/2015, Additional history exists HbA1c 07/29/2023 01/26/2023, 06/19, 01/15/2022, Additional history exists GFR 01/26/2024 07/28/2023, 0 09/2023, 06/17/2023, Additional history exists B-12 01/27/2024 01/26/2023, 10/18, 10/18/2020, Additional history exists CKD PHOS USE SMARTSET 26109 01/27/202401/16, 11/05/2021, 10/18/2020, Additional history exists Albumin/Creatinine Ratio 01/28/2024 023, 11/06/2021, 01/03/2020, Additional history exists Diabetic Eye Exam 02/20/2024 02/19/2023, , 11/23/2021, Additional history exists Depression Screening 06/08/2024 06/08/2023 CKD HGB USE SMARTSET 99796 07/28/202407/28, 07/21/2023, 06/17/2023, Additional history exists DXA Scan 12/02/2024 12/02/2022, 11/16, 02/11/2015, Additional history exists DTaP,Tdap,and Td Vaccines (3 - Td or Tdap) 04/26/2029 04/26/2019, 02/09/2008 Hepatitis C Screening Completed 01/20/2010, 010 Pneumococcal Vaccine: 65+ Years Completed 06/08/2016, 03/06/2015, 12/21/2014, Additional history exists Zoster Vaccines Completed 05/29/2019, 03/19, 07/05/2008 VITAMIN D LEVEL ONCE IN A LIFETIME-USE SMARTSET# 34875 Completed 01/26/2023, 01/03/2020, 04/22/2018, Additional history exists [...] encounter Medical Devices Implanted Type Area Surface Grinder Device Identifier Shelf Expiration Date Model / Serial / Lot Alloderm 2x4 Sheet [id number] - [id number] Implanted:Qty : 1 on 11/08/2009 at [place] [facility] [place] Tissue - Human N/A: Abdomen [employer] AFIA 02/16/2011 [id number] / / [id number] Mesh 10 X 14 [id number] - [id number] Implanted:Qty : 1 on 02/02/2011 at [place] [facility] [place] N/A: Abdomen A[employer]IUM [employer] AFIA 01/03/2015 [id number] / / [id number] Pelvic Coil 2 Implanted:Qty : 5 on 02/04/2011 at RADIOLOGY [facility] [place] Left: Pelvis [employer] / / [id number] Description:figure 8 documented as of this encounter Visit Diagnoses Diagnosis 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)- Primary documented in this encounter Advance Directives Documents on File Type Date Recorded Patient Retail Leasing Agent Expl anation Advance Directives and Livin g Will 09/29/2017 LIVING WILL Power of Operations Representative 09/29/2017 POWER OF A TTORNEY Latest Code [...] the patient have Health Care Power of Operations Representative? No Full Code 01/18/2010 8:53 PM 01/30/2010 6:41 PM This o rder reflects the patients wishes and were consensually agreed upon. Question Answer Comments Discussion of Advance Directives occurred with: Patient Does the patient have a Living Will? No Does the patient have Health Care Power of Operations Representative? No Full Code 11/18/2009 11:54 AM 11/19/2009 4:09 PM This o rder reflects the patients wishes and were consensually agreed upon. Question Answer Comments Discussion of Advance Directives occurred with: Patient Does the patient have a Living Will? No Does the patient have Health Care Power of Operations Representative? No Full Code 11/13/2009 8:29 AM 11/14/2009 5:08 PM This order reflects the patients wishes and were consensually agreed upon. Care Teams Type Disk Quality Control Supervisor Relationship Specialty Start Date End Date Galicia, Madhuri Boyce, DO [address] [place] [address] [place] [phone] PCP - General Internal Medicine 02/16/17 documented as of this encounter
--- OUTSIDE RECORDS SUMMARY | 2023-11-22 09:02 | External Medical Summary | Summary of Care ---
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 06/08/16 States she does not have allergy to Ben inhibitors 03/29/2019 documented as of this encounter (statuses as of 08/13/2023) Medications Medication Sig Dispensed Refills Start Date [...] as of this encounter (statuses as of 08/13/2023) Active Problems Problem Noted Date Diagnosed Date [...] as of this encounter (statuses as of 08/13/2023) Resolved Problems Problem Noted Date Diagnosed Date [...] MANAGEMENT 11/18/200905/05 Overview: Stefanie Powell RN Outpatient Polo CoachRolled Glass Crosscutter number [phone] Fax number [phone] Hypotension 11/08/2009 12/19/2012 Follow-up examination, follo wing [...] as of this encounter (statuses as of 08/13/2023) Immunizations Name Administration Dates Next Due COVID-19 mRNA, LNP-s, No Pre serve, 2-Dose Series ([employer].) 05/27/2021 COVID-19, LNP-s, No Preserve , Rodrick-sucrose, Ages 12+ (Pfizer) 02/03/2022 COVID-19, MRNA-LNP, 23-24, P F, 30 MCG/0.3 mL, 12 YRS AND ABOVE, IM (Tap 'n Tap-[email or web address]) 04/27/2023 Covid-19 Ad26, Single Dose (Apisphere/TownWizard&TownWizard) 10/25/2020 Covid-19, Mrna, Lnp-s, Pf, B ivalent, 30 Mcg, IM, 12 yrs and above ([employer].) 06/09/2022 H1N1 2009 Influenza, IM 08/02/2009 Pneumococcal [...] Progress Notes * Augusta Kessler RPh - 08/13/2023 4:27 PM EST Patient Phone Numbers Anti-Xa level still in progress, not resulted by EOD. Placed on schedule for on- call [facility] to follow up tomorrow. Called and spoke to patient to make aware. Augusta Kessler RPh, PharmD Clinical Pharmacist - Molder Floor Medication Therapy Disease Management Clinic 08/13/2023, 4:29 PM [phone] documented in this encounter Plan of Treatment Upcoming Encounters Date Type Department Care Team (Late st Contact Info) Description 08/14/2023 7:00 AM EST Anticoagulation Pharmacy Call Center [facility] [phone] [facility] [place] [address] [facility] [address] [facility] [place] [address] 08/23/2023 10:20 AM EST Office Visit Family Medicine [address] [place] [phone] Roly Sagastume [address] [place] [address] 01/19/2024 1:30 PM EDT Imaging Radiology [address] [place] [address] 06/14/2024 1:00 PM EST Nurse Only Ancillary [address] [place] [address] [place], Nurse Annual Wellness [address] [place] [address] [place] [address] Health Maintenance Due Date Last Done Comments [...] Additional history exists CKD PHOS USE SMARTSET 05242 01/27/202401/16, 11/05/2021, 10/18/2020, Additional history exists Albumin/Creatinine Ratio 01/28/2024 023, 11/06/2021, 01/03/2020, Additional history exists Diabetic Eye Exam 02/20/2024 02/19/2023, , 11/23/2021, Additional history exists Depression Screening 06/08/2024 06/08/2023 CKD HGB USE SMARTSET 87846 07/28/202407/28, 07/21/2023, 06/17/2023, Additional history exists DXA Scan 12/02/2024 12/02/2022, 11/16, 02/11/2015, Additional history exists DTaP,Tdap,and Td Vaccines (3 - Td or Tdap) 04/26/2029 04/26/2019, 04/26/2019, 02/09/2008 Hepatitis C Screening Completed 01/20/2010, 010 Pneumococcal Vaccine: 65+ Years Completed 06/08/2016, 03/06/2015, 12/21/2014, Additional history exists Zoster Vaccines Completed 05/30/2019, 05/19, 03/29/2019, Additional history exists VITAMIN D LEVEL ONCE IN A LIFETIME-USE SMARTSET# [id number] Completed 01/26/2023, 01/03/2020, 04/22/2018, Additional history exists [...] this encounter Medical Devices Implanted Type Area Centerpuncher Device Identifier Shelf Expiration Date Model / Serial / Lot Alloderm 2x4 Sheet [id number] - [id number] Implanted:Qty : 1 on 11/08/2009 at [place] [facility] [place] [facility] [place] Tissue - Human N/A: Abdomen LIFE CELL AFIA 02/16/2011 [id number] / / [id number] Mesh 10 X 14 [id number] - [id number] Implanted:Qty : 1 on 02/02/2011 at [place] [facility] [place] [facility] [place] N/A: Abdomen ATRIUM MEDICAL AFIA 01/03/2015 [id number] / / [id number] Pelvic Coil 2 Implanted:Qty : 5 on 02/04/2011 at [place] [facility] [place] [facility] [place] Left: Pelvis [employer] / / [id number] Description:figure 8 documented as of this encounter Visit Diagnoses Diagnosis 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 No Full Code 01/18/2010 8:53 PM 01/30/2010 6:41 PM This o rder reflects the patients wishes and were consensually agreed upon. Question Answer Comments Discussion of Advance Directives occurred with: Patient Does the patient have a Living Will? No Does the patient have Health Care Power of Cableway Operator? No Full Code 11/18/2009 11:54 AM 11/19/2009 4:09 PM This o rder reflects the patients wishes and were consensually agreed upon. Question Answer Comments Discussion of Advance Directives occurred with: Patient Does the patient have a Living Will? No Does the patient have Health Care Power of Cableway Operator? No Full Code 11/13/2009 8:29 AM 11/14/2009 5:08 PM This order reflects the patients wishes and were consensually agreed upon. Care Teams Equipment Maintenance Engineer Relationship Specialty Start Date End Date Madhuri Galicia DO [address] [place] [address] [place] [address] PCP - General Internal Medicine 02/16/17 documented as of this encounter
--- OUTSIDE RECORDS SUMMARY | 2023-11-22 09:02 | External Medical Summary | Summary of Care ---
Author Name Unknown Organization [facility] Address [address] 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 06/08/16 States she does not have allergy to Ben inhibitors 03/29/2019 documented as of this encounter (statuses as of 08/05/2023) Medications Medication Sig Dispensed Refills Start Date [...] as of this encounter (statuses as of 08/05/2023) Active Problems Problem Noted Date Diagnosed Date [...] as of this encounter (statuses as of 08/05/2023) Resolved Problems Problem Noted Date Diagnosed Date [...] 11/19/2009 ACTIVE CASE MANAGEMENT 11/18/200905/05 Overview: Stefanie Powlel RN Outpatient Food Production Machine OperatorRail Tractor Operator number [phone] Fax number [phone] Hypotension 11/08/2009 12/19/2012 Follow-up examination, follo wing [...] 02/17/2008 03/12/2017 Anticoagulation management encounter 02/17/2008 08/20/2008 detention current use of ant icoagulant therapy 02/17/2008 [...] as of this encounter (statuses as of 08/05/2023) Immunizations Name Administration Dates Next Due COVID-19 mRNA, LNP-s, No Pre serve, 2-Dose Series (C[employer]by[employer]) 05/27/2021 COVID-19, LNP-s, No Preserve , Rodrick-sucrose, Ages 12+ (Pfizer) 02/03/2022 COVID-19, MRNA-LNP, 23-24, P F, 30 MCG/0.3 mL, 12 YRS AND ABOVE, IM ([facility]) 04/27/2023 Covid-19 Ad26, Single Dose ([employer]) 10/25/2020 Covid-19, Mrna, Lnp-s, Pf, B ivalent, 30 Mcg, IM, 12 yrs and above (CabbyGo) 06/09/2022 H1N1 2009 Influenza, IM 08/02/2009 Pneumococcal [...] Progress Notes * Augusta Kessler RPh - 08/05/2023 11:05 AM EST Patient Phone Numbers Called and spoke with [facility] ([phone]). Nurse states patient remains under their care. Will continue to f/u for discharge. Augusta Kessler RPh, PharmD Clinical Pharmacist - Baffle Mounter Medication Therapy Disease Management Clinic 08/05/2023, 11:09 AM [phone] documented in this encounter Plan of Treatment Upcoming Encounters Date Type Department Care Team (Late st Contact Info) Description 08/12/2023 5:10 PM EST Anticoagulation Pharmacy, [address] [place] [address] [place] [address] 08/23/2023 10:20 AM EST Office Visit Family Medicine [address] [place] [phone] Roly Sagastume [address] [place] [address] 01/19/2024 1:30 PM EDT Imaging Radiology [address] [place] [address] 06/14/2024 1:00 PM EST Nurse Only Ancillary [address] [place] [address] [place], Nurse Annual Wellness [address] [place] [address] [place] [address] Health Maintenance Due Date Last Done Comments [...] Additional history exists CKD PHOS USE SMARTSET 98496 01/27/202401/16, 11/05/2021, 10/18/2020, Additional history exists Albumin/Creatinine Ratio 01/28/2024 023, 11/06/2021, 01/03/2020, Additional history exists Diabetic Eye Exam 02/20/2024 02/19/2023, , 11/23/2021, Additional history exists Depression Screening 06/08/2024 06/08/2023 CKD HGB USE SMARTSET 85166 07/28/202407/28, 07/21/2023, 06/17/2023, Additional history exists DXA Scan 12/02/2024 12/02/2022, 11/16, 02/11/2015, Additional history exists DTaP,Tdap,and Td Vaccines (3 - Td or Tdap) 04/26/2029 04/26/2019, 02/09/2008 Hepatitis C Screening Completed 01/20/2010, 010 Pneumococcal Vaccine: 65+ Years Completed 06/08/2016, 03/06/2015, 12/21/2014, Additional history exists Zoster Vaccines Completed 05/29/2019, 03/19, 07/05/2008 VITAMIN D LEVEL ONCE IN A LIFETIME-USE SMARTSET# 09623 Completed 01/26/2023, 01/03/2020, 04/22/2018, Additional history exists [...] this encounter Medical Devices Implanted Type Area American Studies Professor Device Identifier Shelf Expiration Date Model / Serial / Lot Alloderm 2x4 Sheet [id number] - [id number] Implanted:Qty : 1 [place] 11[place] [facility] [place] Human N/A: Abdomen LIFE CELL AFIA 02/16/2011 [id number] / / [id number] Mesh 10 X 14 [id number] - [id number] Implanted:Qty : 1 on 02/02/2011 [place] [facility] [place]/A: Abdomen ATRIUM MEDICAL AFIA 01/03/2015 [id number] / / [id number] Pelvic Coil 2 Implanted:Qty : 5 on 02/04/2011 [place] [facility] [place] Left: Pelvis [employer] [facility] / / [id number] Description:figure 8 documented as of this encounter Visit Diagnoses Diagnosis 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 No Full Code 01/18/2010 8:53 PM 01/30/2010 6:41 PM This o rder reflects the patients wishes and were consensually agreed upon. Question Answer Comments Discussion of Advance Directives occurred with: Patient Does the patient have a Living Will? No Does the patient have Health Care Power of Piano Mechanic Apprentice? No Full Code 11/18/2009 11:54 AM 11/19/2009 4:09 PM This o rder reflects the patients wishes and were consensually agreed upon. Question Answer Comments Discussion of Advance Directives occurred with: Patient Does the patient have a Living Will? No Does the patient have Health Care Power of Piano Mechanic Apprentice? No Full Code 11/13/2009 8:29 AM 11/14/2009 5:08 PM This order reflects the patients wishes and were consensually agreed upon. Care Teams Design Engineering Manager Relationship Specialty Start Date End Date Madhuri Galicia DO [address] [place] [address] [place] [address] PCP - General Internal Medicine 02/16/17 documented as of this encounter
--- OUTSIDE RECORDS SUMMARY | 2023-11-22 09:02 | External Medical Summary ---
Author Name Unknown Address Unknown Organization K01:[place] [facility] [place] [address] [place] [address] Laboratory Report Ordering Provider Test Date Status PARI COLLADO 08/13/2023 13:00:08 Final Observation Date Value Abnormality Reference (Units ) Status LMW Heparin [Units/volume] in Platelet poor plasma by Chromogenic method 08/13/2023 13:00:08 1.68 Above high normal <0.10 (IU/mL) Final Low molecular weight heparin 's therapeutic range is 0.6 - 1.00 I.U./mL. Performing Location [facility] [place] [address] [place] [address]
--- OUTSIDE RECORDS SUMMARY | 2023-11-22 09:02 | External Medical Summary | Summary of Care ---
Author Name Unknown Organization [facility] Address [address] [facility] [place] [address] Phone [phone] Care Team Providers Care Cnc Machinist Name Role Phone Madhuri Galicia DO Primary Care Provider Reason for Visit * Reason Comments Outpatient Testing Encounter Details Date Type Department Care Team (Late st Contact Info) Description 08/13/2023 12:50 PM EST Laboratory Laboratory [address] [place] [phone] [address] [place] [address] Recurrent acute deep vein thrombosis (DVT) of [...] MANAGEMENT 11/18/200905/05 Overview: Stefanie Powell RN Outpatient Shipping & Receiving LeadSnuff Drier number [phone] Fax number [phone] Hypotension 11/08/2009 12/19/2012 Follow-up examination, follo wing [...] 03/12/2017 Anticoagulation management encounter 02/17/2008 08/20/2008 manager intermediate current use of ant icoagulant therapy [...] mRNA, LNP-s, No Pre serve, 2-Dose Series ([employer]) 05/27/2021 COVID-19, LNP-s, No Preserve , Rodrick-sucrose, Ages 12+ (Pfizer) 02/03/2022 COVID-19, MRNA-LNP, 23-24, P F, 30 MCG/0.3 mL, 12 YRS AND ABOVE, IM ([employer]) 04/27/2023 Covid-19 Ad26, Single Dose ([employer]) 10/25/2020 Covid-19, Mrna, Lnp-s, Pf, B ivalent, 30 Mcg, IM, 12 yrs and above ([employer]udes) 06/09/2022 H1N1 2009 Influenza, IM 08/02/2009 Pneumococcal [...] Description 08/13/2023 5:30 PM EST Anticoagulation Pharmacy, [address] [place] [address] [place] [address] 08/23/2023 10:20 AM EST Office Visit Family Medicine [address] [place] [phone] [address] [address] [place] [address] 01/19/2024 1:30 PM EDT Imaging Radiology [address] [place] [address] 06/14/2024 1:00 PM EST Nurse Only Ancillary [address] [place] [address] Daniella, Nurse [address] [place] [address] Pending Results Name Type Priority Associated Diagnoses Date /Time HEPARIN, LOW MOLECULAR WEIGHT Lab STAT 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) 08/13/2023 1:00 PM EST Health Maintenance Due Date Last [...] Additional history exists CKD PHOS USE SMARTSET 54163 01/27/202401/16, 11/05/2021, 10/18/2020, Additional history exists Albumin/Creatinine Ratio 01/28/2024 023, 11/06/2021, 01/03/2020, Additional history exists Diabetic Eye Exam 02/20/2024 02/19/2023, , 11/23/2021, Additional history exists Depression Screening 06/08/2024 06/08/2023 CKD HGB USE SMARTSET 02177 07/28/202407/28, 07/21/2023, 06/17/2023, Additional history exists DXA Scan 12/02/2024 12/02/2022, 11/16, 02/11/2015, Additional history exists DTaP,Tdap,and Td Vaccines (3 - Td or Tdap) 04/26/2029 04/26/2019, 04/26/2019, 02/09/2008 Hepatitis C Screening Completed 01/20/2010, 010 Pneumococcal Vaccine: 65+ Years Completed 06/08/2016, 03/06/2015, 12/21/2014, Additional history exists Zoster Vaccines Completed 05/30/2019, 05/19, 03/29/2019, Additional history exists VITAMIN D LEVEL ONCE IN A LIFETIME-USE SMARTSET# 37228 Completed 01/26/2023, 01/03/2020, 04/22/2018, Additional history exists [...] this encounter Medical Devices Implanted Type Area Lean Manager Device Identifier Shelf Expiration Date Model / Serial / Lot Alloderm 2x4 Sheet [id number] - [id number] Implanted:Qty : 1 on 11/08/2009 [place] [facility] [place] - Human N/A: Abdomen LIFE CELL AFIA 02/16/2011 [id number] / / [id number] Mesh 10 X 14 [id number] - [id number] Implanted:Qty : 1 on 02/02/2011 [place] [facility] [place]/A: Abdomen [employer] AFIA 01/03/2015 [id number] / / [id number] Pelvic Coil 2 Implanted:Qty : 5 on 02/04/2011 at [place] [facility] [place] Left: Pelvis [employer] / / [id number] Description:figure 8 documented as of this encounter Visit Diagnoses Diagnosis 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 No Full Code 01/18/2010 8:53 PM 01/30/2010 6:41 PM This o rder reflects the patients wishes and were consensually agreed upon. Question Answer Comments Discussion of Advance Directives occurred with: Patient Does the patient have a Living Will? No Does the patient have Health Care Power of Processor Helper? No Full Code 11/18/2009 11:54 AM 11/19/2009 4:09 PM This o rder reflects the patients wishes and were consensually agreed upon. Question Answer Comments Discussion of Advance Directives occurred with: Patient Does the patient have a Living Will? No Does the patient have Health Care Power of Processor Helper? No Full Code 11/13/2009 8:29 AM 11/14/2009 5:08 PM This order reflects the patients wishes and were consensually agreed upon. Care Teams Cnc Machinist Relationship Specialty Start Date End Date Madhuri Galicia DO [address] [place] [address] [place] [address] PCP - General Internal Medicine 02/16/17 documented as of this encounter
--- OUTSIDE RECORDS SUMMARY | 2023-11-22 09:02 | External Medical Summary | Summary of Care ---
Author Name Unknown Organization [facility] Address [address] [place] [address] Phone [phone] Care Team Providers Care Personal Lines Advisor Name Role Phone Madhuri Galicia DO Primary Care Provider [phone] Reason for Visit * Reason Comments Dosage Adjustment Via Phone (anticoag Cl inic) Encounter Details Date Type Department Care Team (Latest Contact Info) Description 08/14/2023 7:00 AM EST Anticoagulation Pharmacy Call Center [phone] [place] [address] [facility] [address] 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 06/08/16 States she does not have allergy to Ben inhibitors 03/29/2019 documented as of this encounter (statuses as of 08/14/2023) Medications Medication Sig Dispensed Refills Start Date [...] as of this encounter (statuses as of 08/14/2023) Active Problems Problem Noted Date Diagnosed Date [...] as of this encounter (statuses as of 08/14/2023) Resolved Problems Problem Noted Date Diagnosed Date [...] MANAGEMENT 11/18/200905/05 Overview: Stefanie Powell RN Outpatient Leasing AgentMotion And Time Study Teacher number [phone] Fax number [phone] Hypotension 11/08/2009 12/19/2012 Follow-up examination, follo wing [...] 03/12/2017 Anticoagulation management encounter 02/17/2008 08/20/2008 terminal carman current use of ant icoagulant therapy 02/17/2008 [...] as of this encounter (statuses as of 08/14/2023) Immunizations Name Administration Dates Next Due COVID-19 mRNA, LNP-s, No Pre serve, 2-Dose Series ([employer]) 05/27/2021 COVID-19, LNP-s, No Preserve , Rodrick-sucrose, Ages 12+ ([employer]) 02/03/2022 COVID-19, MRNA-LNP, 23-24, P F, 30 MCG/0.3 mL, 12 YRS AND ABOVE, IM ([employer]) 04/27/2023 Covid-19 Ad26, Single Dose ([employer]) 10/25/2020 Covid-19, Mrna, Lnp-s, Pf, B ivalent, 30 Mcg, IM, 12 yrs and above ([employer]) 06/09/2022 H1N1 2009 Influenza, IM 08/02/2009 [...] as of this encounter Progress Notes * Nereyda Vargas, [facility] - 08/14/2023 8:20 AM EST Patient Phone [...] 08/16 with [facility]. Advised patient to contact [facility] if any unusual bruising or bleeding, issues obtaining medication from pharmacy, or questions/concerns. Nereyda Vargas, PharmD PGY1 Gas Fitter Apprentice 08/14/2023 8:23 AM documented in this encounter Plan of Treatment Upcoming Encounters Date Type Department Care Team (Late st Contact Info) Description 08/16/2023 1:10 PM EST Laboratory Laboratory [address] [place] [phone] [facility] [address] [place] [address] 08/16/2023 2:40 PM EST Anticoagulation Pharmacy, [address] [place] [address] [facility] [address] [place] [address] 08/23/2023 10:20 AM EST Office Visit Family Medicine [address] [place] [phone] [address] [place] [address] 01/19/2024 1:30 PM EDT Imaging Radiology [address] [place] [address] 06/14/2024 1:00 PM EST Nurse Only Ancillary [address] [place] [address] Cindyey, Nurse Annual [address] [place] [address] Scheduled Orders Name Type Priority Associated Diagnoses [...] 01/08/2015, Additional history exists HbA1c 07/29/2023 01/26/2023, 12/02/2022, 01/15/2022, Additional history exists GFR 01/26/2024 07/28/2023, 010 09/2023, 06/17/2023, Additional history exists B-12 01/27/2024 01/26/2023, 10/18, 10/18/2020, Additional history exists CKD PHOS USE SMARTSET 25705 01/27/202401/16, 11/05/2021, 10/18/2020, Additional history exists Albumin/Creatinine Ratio 01/28/2024 023, 11/06/2021, 01/03/2020, Additional history exists Diabetic Eye Exam 02/20/2024 02/19/2023, , 11/23/2021, Additional history exists Depression Screening 06/08/2024 06/08/2023 CKD HGB USE SMARTSET 46590 07/28/202407/28, 07/21/2023, 06/17/2023, Additional history exists DXA Scan 12/02/2024 12/02/2022, 11/16, 02/11/2015, Additional history exists DTaP,Tdap,and Td Vaccines (3 - Td or Tdap) 04/26/2029 04/26/2019, 04/26/2019, 02/09/2008 Hepatitis C Screening Completed 01/20/2010, 010 Pneumococcal Vaccine: 65+ Years Completed 06/08/2016, 03/06/2015, 12/21/2014, Additional history exists Zoster Vaccines Completed 05/30/2019, 05/19, 03/29/2019, Additional history exists VITAMIN D LEVEL ONCE IN A LIFETIME-USE SMARTSET# 71357 Completed 01/26/2023, 01/03/2020, 04/22/2018, Additional history exists [...] this encounter Medical Devices Implanted Type Area Waterworks Supervisor Device Identifier Shelf Expiration Date Model / Serial / Lot Alloderm 2x4 Sheet [id number] - [id number] [place]ed:Q[place] : 1 [place] [facility] [place] Human N/A: Abdomen LIFE CELL AFIA 02/16/2011 [id number] / / [id number] Mesh 10 X 14 [id number] - [id number] Implanted:Qty : 1 on 02[place]02/[place] [facility] [place]A: Abdomen [employer] AFIA 01/03/2015 [id number] / / [id number] Pelvic Coil 2 Implanted:Qty : 5 on [place]04/[place] [facility] [place]: Pelvis [employer] / / [id number] Description:figure 8 documented as of this encounter Visit Diagnoses Diagnosis 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 No Full Code 01/18/2010 8:53 PM 01/30/2010 6:41 PM This o rder reflects the patients wishes and were consensually agreed upon. Question Answer Comments Discussion of Advance Directives occurred with: Patient Does the patient have a Living Will? No Does the patient have Health Care Power of Gut Sorter? No Full Code 11/18/2009 11:54 AM 11/19/2009 4:09 PM This o rder reflects the patients wishes and were consensually agreed upon. Question Answer Comments Discussion of Advance Directives occurred with: Patient Does the patient have a Living Will? No Does the patient have Health Care Power of Gut Sorter? No Full Code 11/13/2009 8:29 AM 11/14/2009 5:08 PM This order reflects the patients wishes and were consensually agreed upon. Care Teams Personal Lines Advisor Relationship Specialty Start Date End Date Madhuri Galicia DO [address] [place] [address] [place] [address] PCP - General Internal Medicine 02/16/17 documented as of this encounter
--- OUTSIDE RECORDS SUMMARY | 2023-11-22 09:03 | External Medical Summary | Summary of Care ---
Author Name Unknown Organization [facility] Address [address] [place] [address] Phone [phone] Care Team Providers Care It Security Project Manager Name Role Phone Madhuri Galicia DO Primary Care Provider [phone] Encounter Details Date Type Department Care Team (Late st Contact Info) Description 07/29/2023 Orders Only Family Medicine [address] [place] [phone] Madhuri Galicia [address] [place] [address] Allergies Active Allergy Reactions Criticality Noted Date Comments Ben Inhibitors 12/05/2012- 2009 Stated that she does not have an allergy to Ben Inhibitors. 06/08/16 States she does not have allergy to Ben inhibitors 03/29/2019 documented as of this encounter (statuses as of 07/29/2023) Medications Medication Sig Dispensed Refills Start Date [...] goal of less than 8.0% ([facility]) Use to test blood sugar [...] as of this encounter (statuses as of 07/29/2023) Active Problems Problem Noted Date Diagnosed Date [...] as of this encounter (statuses as of 07/29/2023) Resolved Problems Problem Noted Date Diagnosed Date [...] MANAGEMENT 11/18/200905/05 Overview: Stefanie Powell RN Outpatient Hvac Field Service TechnicianRepeater Chief number [phone] Fax number [phone] Hypotension 11/08/2009 12/19/2012 Follow-up examination, follo wing [...] 08/20/2008 assistant terminal manager current use of ant icoagulant [...] as of this encounter (statuses as of 07/29/2023) Immunizations Name Administration Dates Next Due COVID-19 mRNA, LNP-s, No Pre serve, 2-Dose Series ([employer]) 05/27/2021 COVID-19, LNP-s, No Preserve , Rodrick-sucrose, Ages 12+ (Pfizer) 02/03/2022 COVID-19, MRNA-LNP, 23-24, P F, 30 MCG/0.3 mL, 12 YRS AND ABOVE, IM (L[employer]ap) 04/27/2023 Covid-19 Ad26, Single Dose ([employer]) 10/25/2020 Covid-19, Mrna, Lnp-s, Pf, B ivalent, 30 Mcg, IM, 12 yrs and above ([employer]) 06/09/2022 H1N1 2009 Influenza, IM 08/02/2009 Pneumococcal [...] Care Team (Late st Contact Info) Description 07/29/2023 5:10 PM EST Anticoagulation Pharmacy, [address] [place] [address] [place] [address] 08/04/2023 1:50 PM EST Office Visit Family Medicine [address] [place] [phone] [address] [place] [address] 01/19/2024 1:30 PM EDT Imaging Radiology [address] [place] [address] 06/14/2024 1:00 PM EST Nurse Only Ancillary [address] [place] [address] Movyanely, Nurse Annual Wellness [address] [place] [address] [place] [address] Health Maintenance Due Date Last Done Comments Hepatitis B (1 of 3 - Risk 3-dose series) 2007 COLONOSCOPY-EVERY 5 YRS AGES 18-100 01/05/2018 01/05/2013, 01/05/2013, 06/03/2011, Additional history exists Diabetic Foot Exam 03/29/2020 03/29/2019, 0 03/03/2016, 01/08/2015, Additional history exists HbA1c 07/29/2023 01/26/2023, 06/19, 01/15/2022, Additional history exists GFR 01/19/2024 07/28/2023, 09/2023, 06/17/2023, Additional history exists B-12 01/27/2024 01/26/2023, 10/18, 10/18/2020, Additional history exists CKD PHOS USE SMARTSET 31078 01/27/202401/16, 11/05/2021, 10/18/2020, Additional history exists Albumin/Creatinine Ratio 01/28/2024 023, 11/06/2021, 01/03/2020, Additional history exists Diabetic Eye Exam 02/20/2024 02/19/2023, , 11/23/2021, Additional history exists Depression Screening 06/08/2024 06/08/2023 CKD HGB USE SMARTSET 83661 07/21/202407/28, 07/21/2023, 06/17/2023, Additional history exists DXA Scan 12/02/2024 12/02/2022, 11/16, 02/11/2015, Additional history exists DTaP,Tdap,and Td Vaccines (3 - Td or Tdap) 04/26/2029 04/26/2019, 02/09/2008 Hepatitis C Screening Completed 01/20/2010, 010 Pneumococcal Vaccine: 65+ Years Completed 06/08/2016, 03/06/2015, 12/21/2014, Additional history exists Zoster Vaccines Completed 05/29/2019, 03/19, 07/05/2008 VITAMIN D LEVEL ONCE IN A LIFETIME-USE SMARTSET# 15879 Completed 01/26/2023, 01/03/2020, 04/22/2018, Additional history exists [...] this encounter Medical Devices Implanted Type Area It Program Manager Device Identifier Shelf Expiration Date Model / Serial / Lot Alloderm 2x4 Sheet [id number] - [id number] Implanted:Qty : 1 on 11/08/2009 at [place] [facility] [place] Tissue - Human N/A: Abdomen LIFE CELL AFIA 02/16/2011 [id number] / / [id number] Mesh 10 X 14 [id number] - [id number] Implanted:Qty : 1 on 02/02/2011 at [place] [facility] [place] N/A: Abdomen A[employer] AFIA 01/03/2015 [id number] / / [id number] Pelvic Coil 2 Implanted:Qty : 5 on 02/04/2011 at RADIOLOGY [facility] [place] Left: Pelvis [employer] / / [id number] Description:figure 8 documented as of this encounter Procedures Procedure Name Priority Date/Time Associated Diagnosis Comments CHEMISTRY-OUTSIDE Routine 07/28/2023 documented in this encounter Results * (ABNORMAL) CHEMISTRY-OUTSIDE (07/28/2023) Not all results display below - see scan for full detail OUTSIDE LAB (SEE SCANNED REPORT) Comment:SEE SCAN- CBC, PTINR , BMP CREATININE-OUTSID E LAB 1.18(A) 0.55 - 1.02 MG/DL OUTSIDE LAB (SEE SCANNED REPORT) EGFR-OUTSIDE LAB 48 ML/MIN OUT SIDE LAB (SEE SCANNED REPORT) POTASSIUM-OUTSIDE LAB 4.7 3.5 - 5.1 MMOL/L OUTSIDE LAB (SEE SCANNED REPORT) GLUCOSE-OUTSIDE LAB 76 70 - 110 MG/DL OUTSIDE LAB (SEE SCANNED REPORT) HOURS FASTING OUTSID E LAB (SEE SCANNED REPORT) TRIGLYCERIDES-OUT SIDE LAB OUTSIDE LAB (SEE SCANNED REPORT) CHOLESTEROL-OUTSI DE LAB OUTSIDE LAB (SEE SCANNED REPORT) HDL-OUTSIDE LAB OUTS MATEO LAB (SEE SCANNED REPORT) CHOL/HDL RATIO-OUTSIDE LAB OUTSIDE LA B (SEE SCANNED REPORT) LDL (CALCULATED)-OUTS MATEO LAB OUTSIDE LAB (SEE SCANNED REPORT) LDL (DIRECT MEASURE)-OUTSIDE LAB OUTSIDE LAB (SEE SCANNED REPORT) HEMOGLOBIN, X2C-MIHSLSB LAB OUTSIDE LAB (SEE SCANNED REPORT) PHOSPHORUS-OUTSID E LAB OUTSIDE LAB (SEE SCANNED REPORT) PTH-OUTSIDE LAB OUTS MATEO LAB (SEE SCANNED REPORT) MICROALBUMIN RATIO-OUTSIDE LAB OUTSIDE LA B (SEE SCANNED REPORT) PROTEIN, UA-OUTSIDE LAB OUTSIDE LAB (SEE SCANNED REPORT) HEMOGLOBIN-OUTSID E LAB 9.1(A) 12.0 - 16.0 G/DL OUTSIDE LAB (SEE SCANNED REPORT) 07/28/2023 Maxi Anders DO LABORATORY OUTSIDE LAB (SEE SCANNED REPORT) documented in this encounter Advance Directives Documents on File Type Date Recorded Patient Toll Patrolman Expl anation Advance Directives and Livin g Will 09/29/2017 LIVING WILL Power of Sat Math Tutor 09/29/2017 POWER OF A TTORNEY Latest Code [...] the patient have Health Care Power of Sat Math Tutor? No Full Code 01/18/2010 8:53 PM 01/30/2010 6:41 PM This o rder reflects the patients wishes and were consensually agreed upon. Question Answer Comments Discussion of Advance Directives occurred with: Patient Does the patient have a Living Will? No Does the patient have Health Care Power of Sat Math Tutor? No Full Code 11/18/2009 11:54 AM 11/19/2009 4:09 PM This o rder reflects the patients wishes and were consensually agreed upon. Question Answer Comments Discussion of Advance Directives occurred with: Patient Does the patient have a Living Will? No Does the patient have Health Care Power of Sat Math Tutor? No Full Code 11/13/2009 8:29 AM 11/14/2009 5:08 PM This order reflects the patients wishes and were consensually agreed upon. Care Teams It Security Project Manager Relationship Specialty Start Date End Date Madhuri Galicia DO [address] [place] [address] [place] [address] PCP - General Internal Medicine 02/16/17 documented as of this encounter
--- OUTSIDE RECORDS SUMMARY | 2023-11-22 09:03 | External Medical Summary | Summary of Care ---
Author Name Unknown Organization [facility] Address [address] [place] [address] Phone [phone] Care Team Providers Care Athletics Director Name Role Phone Madhuri Galicia DO Primary Care Provider [phone] Encounter Details Date Type Department Care Team (Late st Contact Info) Description 07/21/2023 Result Scan Unspecified Department <No scans attached> Allergies Active Allergy Reactions Criticality Noted Date Comments Ben Inhibitors 12/05/2012 ARF- 2009 Stated that she does not have an allergy to Ben Inhibitors. 06/08/16 States she does not have allergy to Ben inhibitors 03/29/2019 documented as of this encounter (statuses as of 08/03/2023) Medications Medication Sig Dispensed Refills Start Date [...] as of this encounter (statuses as of 08/03/2023) Active Problems Problem Noted Date Diagnosed Date [...] as of this encounter (statuses as of 08/03/2023) Resolved Problems Problem Noted Date Diagnosed Date [...] MANAGEMENT 11/18/200905/05 Overview: Stefanie Powell RN Outpatient Statement ProcessorSleever number [phone] Fax number [phone] Hypotension 11/08/2009 12/19/2012 Follow-up examination, jerel sarah [...] 02/17/2008 08/20/2008 senior care current use of ant icoagulant therapy [...] as of this encounter (statuses as of 08/03/2023) Immunizations Name Administration Dates Next Due COVID-19 mRNA, LNP-s, No Pre serve, 2-Dose Series ([employer]) 05/27/2021 COVID-19, LNP-s, No Preserve , Rodrick-sucrose, Ages 12+ (Pfizer) 02/03/2022 COVID-19, MRNA-LNP, 23-24, P F, 30 MCG/0.3 mL, 12 YRS AND ABOVE, IM (LIA-ComirnatKiwilogic) 04/27/2023 Covid-19 Ad26, Single Dose (PopUp/J&J) 10/25/2020 Covid-19, Mrna, Lnp-s, Pf, B ivalent, [...] Care Team (Late st Contact Info) Description 08/05/2023 5:10 PM EST Anticoagulation Pharmacy, [address] [place] [address] [place] [address] 08/23/2023 10:20 AM EST Office Visit Family Medicine [address] [place] [phone] [facility] [address] [place] [address] 01/19/2024 1:30 PM EDT Imaging Radiology [address] [place] [address] 06/14/2024 1:00 PM EST Nurse Only Ancillary [address] [place] [address] [place], Nurse Annual Wellness [address] [place] [address] [place] [address] Health Maintenance Due Date Last Done Comments [...] Additional history exists CKD PHOS USE SMARTSET 95296 01/27/202401/16, 11/05/2021, 10/18/2020, Additional history exists Albumin/Creatinine Ratio 01/28/2024 023, 11/06/2021, 01/03/2020, Additional history exists Diabetic Eye Exam 02/20/2024 02/19/2023, , 11/23/2021, Additional history exists Depression Screening 06/08/2024 06/08/2023 CKD HGB USE SMARTSET 24392 07/28/202407/28, 07/21/2023, 06/17/2023, Additional history exists DXA Scan 12/02/2024 12/02/2022, 11/16, 02/11/2015, Additional history exists DTaP,Tdap,and Td Vaccines (3 - Td or Tdap) 04/26/2029 04/26/2019, 02/09/2008 Hepatitis C Screening Completed 01/20/2010, 010 Pneumococcal Vaccine: 65+ Years Completed 06/08/2016, 03/06/2015, 12/21/2014, Additional history exists Zoster Vaccines Completed 05/29/2019, 03/19, 07/05/2008 VITAMIN D LEVEL ONCE IN A LIFETIME-USE SMARTSET# 57160 Completed 01/26/2023, 01/03/2020, 04/22/2018, Additional history exists [...] this encounter Medical Devices Implanted Type Area Health Underwriter Device Identifier Shelf Expiration Date Model / Serial / Lot Rikadererick 2x4 Sheet [id number] - [id number] Implanted:Qty : 1 on 11/08/2009 at [place] [facility] [place] Tissue - Human N/A: Abdomen LIFE CELL AFIA 02/16/2011 [id number] / / [id number] Mesh 10 X 14 [id number] - [id number] Implanted:Qty : 1 on 02/02/2011 at OR [facility] [place] N/A: Abdomen [employer] AFIA 01/03/2015 [id number] / / [id number] Pelvic Coil 2 Implanted:Qty : 5 on 02/04/2011 at RADIOLOGY [facility] [place] Left: Pelvis 79 Group / / [id number] Description:figure 8 documented as of this encounter Procedures Procedure Name Priority Date/Time Associated Diagnosis Comments OUTSIDE LAB RESULTS 07/21/2023 documented in this encounter Results * OUTSIDE LAB RESULTS (07/21/2023) 07/21/2023 No Physician Data Unknown LABORATORY documented in this encounter Advance Directives Documents on File Type Date Recorded Patient Mental Health Unit Lead Psychologist Expl anation Advance Directives and Livin g Will 09/29/2017 LIVING WILL Power of Soldering Machine Operator 09/29/2017 POWER OF A TTORNEY [...] the patient have Health Care Power of Soldering Machine Operator? No Full Code 01/18/2010 8:53 PM 01/30/2010 6:41 PM This o rder reflects the patients wishes and were consensually agreed upon. Question Answer Comments Discussion of Advance Directives occurred with: Patient Does the patient have a Living Will? No Does the patient have Health Care Power of Soldering Machine Operator? No Full Code 11/18/2009 11:54 AM 11/19/2009 4:09 PM This o rder reflects the patients wishes and were consensually agreed upon. Question Answer Comments Discussion of Advance Directives occurred with: Patient Does the patient have a Living Will? No Does the patient have Health Care Power of Soldering Machine Operator? No Full Code 11/13/2009 8:29 AM 11/14/2009 5:08 PM This order reflects the patients wishes and were consensually agreed upon. Care Teams Athletics Director Relationship Specialty Start Date End Date Madhuri Galicia DO [address] [place] [address] [place] [address] PCP - General Internal Medicine 02/16/17 documented as of this encounter
--- OUTSIDE RECORDS SUMMARY | 2023-11-22 09:03 | External Medical Summary | Continuity of Care Document ---
Author Name Unknown Organization [facility] [address] [place], [place] [address] Address [address] [place] [id number] Care Team Providers Care Director Of Acquisitions Name Role Phone Madhuri Galicia Primary Care Physician [phone] [facility]counter [facility] [id number] Date(s): 07/30/23 - 07/30/23 [facility] [address] [address] [facility] Sports Medicine [address] [place] [address] Encounter Diagnosis Hematoma of right thigh(Discharge Diagnosis) - 07/30/23 Anticoagulated(Discharge Diagnosis) - 07/30/23 H/O blood clots(Discharge Diagnosis) - 07/30/23 Discharge Disposition: Home or Self Care Attending Physician: MD Mary Paul K Referring Physician: MD Mary Paul K Allergies, Adverse Reactions, Alerts No Known Allergies Assessment and Plan Extracted from: Title:Solis Mary Author:Lorena Sanders ate:07/30/23 Impression:[id number] male with right thigh hematoma Plan: - I recommended patientdecrease her Lovenox to once daily to decrease the risk of recurrence. Follow-up with her primary care physician - With no evidence of cellulitis on today's exam, patient could discontinue antibiotics. - Follow-up as needed. The patient understood all my instructions and explanation; all their questions were satisfactorily addressed. Medications Adult Aspirin Start: 07/30/23 14:32:00 EST Start Date: 07/30/23 Status: Ordered allopurinol Start: 07/30/23 14:29:00 EST, 100 mg = Start Date: 07/30/23 Status: Ordered Benicar 5 mg oral tablet Start: 07/30/23 14:30:00 EST, 1 tab, PO, Daily Start Date: 07/30/23 Status: Ordered cephalexin 500 mg oral capsule Start: 07/30/23 14:32:00 EST Start Date: 07/30/23 Status: Ordered enoxaparin Start: 07/30/23 14:32:00 EST Start Date: 07/30/23 Status: Ordered ferrous sulfate Start: 07/30/23 14:32:00 EST Start Date: 07/30/23 Status: Ordered Fish Oil 500 mg oral capsule Start: 07/30/23 14:31:00 EST Start Date: 07/30/23 Status: Ordered metFORMIN Start: 07/30/23 14:31:00 EST Start Date: 07/30/23 Status: Ordered metoprolol succinate 25 mg oral tablet, extended release Start: 07/30/23 14:29:00 EST, 1 tab, PO, Daily Start Date: 07/30/23 Status: Ordered pantoprazole Start: 07/30/23 14:30:00 EST, 20 mg = Start Date: 07/30/23 Status: Ordered Trulicity Pen 1.5 mg/0.5 mL subcutaneous solution Start: 07/30/23 14:29:00 EST, 1.5 mg =, subQ, q7days, Disp# 2 mL Start Date: 07/30/23 Status: Ordered Vitamin D3 Start: 07/30/23 14:31:00 EST Start Date: 07/30/23 Status: Ordered Mental Status 07/30/23 Barriers to Learning one year None evide nt Mandatory Health Literacy Documentation Yes Health Literacy Communication Barriers N ever Primary Language Amharic Problem List Condition Confirmation Course Effective Dates Status Health atus Informant Anticoagulated Confirmed Active Diagnosis Diagnosis Type Effective Dates Health Status Clinical Service Informant Anticoagulated Discharge Diagnosis 07/30/23 H/O blood clots Discharge Diagnosis 07/30/23 Hematoma of right thigh Discharge Diagnosis 07/30/23 Vital Signs Most recent to oldest [Reference Range]: 1 Height 165.1 cm (07/30/23 2:33 PM) Patient Weight 59.8 kg (07/30/23 2:33 PM) Body Mass Index 21.94 kg/m2 (07/30/23 2:33 PM) Social History Social History Type Response Smoking Status Never smoked cigaret zach Sex Female Ortho Outpt Note * MD Tyra, Solis Colón: MODIFY Lorena Sanders: PERFORM, MODIFY Lorena Sanders: MODIFY Event Display: Ortho Outpt Note Authored Date: [id number] Primary Care Provider DO Galicia Amanda Mae Chief Complaint Right thigh hematoma History of Present Illness PtuaOLbwpzzkexzikx05-vejh-wdyibhzwpobc presents today with her husbandfor a right thigh hematoma due to anticoagulation with Lovenox and Aspirin. I saw her as an inpatient in the hospital [place]. She was subsequently discharged [facility] a [facility].Her facility called yesterday concerned that her hematoma grew in size. Shesaw another physician and was given a 6 day course ofantibiotics for presumed cellulitis. She has been icing her thigh. Patient denies injury to her thigh. She supplements with fish oil andis back on the same dose of Lovenox (40mgBID) zan19jm Aspirin that she was on before developing the hematoma. Review of Systems A 14 point review of systems isavailable in the EMR. Physical Exam Vitals & Measurements HT:165.1cm WT:59.8kg WT:59.800kg(Dosing) BMI:21.94 Focusing on the patient'srightlower extremity: Hematoma on medial thigh measuring approximately7 x 23cm + Mild overlying skin bruising No evidence of cellulitis Assessment/Plan Impression:53-nehf-fkhuofvph with right thigh hematoma Plan: - I recommended patientdecrease her Lovenox to once daily to decrease the risk of recurrence. Follow-up with her primary care physician - With no evidence of cellulitis on today's exam, patient could discontinue antibiotics. - Follow-up as needed. The patient understood all my instructions and explanation; all their questions were satisfactorilyaddressed. Attestation I, Lorena Sanders, have scribed for, and in the presence of, Solis Mary on this date,07/30/2023 14:46:27. Medications allopurinol, 100 mg aspirin(Adult Aspirin) cephalexin(cephalexin 500 mg oral capsule) cholecalciferol(Vitamin D3) dulaglutide(Trulicity Pen 1.5 mg/0.5 mL subcutaneous solution), 1.5 mg, subQ, q7days enoxaparin ferrous sulfate metFORMIN metoprolol(metoprolol succinate 25 mg oral tablet, extended release), 25 mg= 1 tab, PO, Daily olmesartan(Benicar 5 mg oral tablet), 5 mg= 1 tab, PO, Daily omega-3 polyunsaturated fatty acids(Fish Oil 500 mg oral capsule) pantoprazole, 20 mg Allergies NKA Social History Smoking Status Never smoked cigarettes Recommendations Health Maintenance Pending(in the next year) OverDue Adult Influenza Vaccine due01/15/23and every 1year Due Adult COVID-19 Vaccination due07/30/23Unknown Frequency Adult Social Determinants of Health Screening due07/30/23Unknown Frequency Adult Tdap/Td Vaccine due07/30/23Unknown Frequency Colorectal Cancer Screening due07/30/23Unknown Frequency Hepatitis C Screening due07/30/23One-time only Lipid Screening due07/30/23Unknown Frequency Medicare Annual Wellness Visit due07/30/23and every 1year Osteoporosis Screening due07/30/23One-time only Pneumococcal Vaccine Older Adults due07/30/23One-time only Shingles Vaccine due07/30/23One-time only Satisfied(in the past 1 year) Satisfied Body Mass Index on07/30/23.Satisfied by RAYSA Huggins Natasha Electronic Signature on File Electronically Reviewed/Signed by: Lorena Sanders Author Signature Dt/Tm:07/30/2023 02:58 PM Electronically Reviewed/Signed by: Solis Mary MD Cosigner Signature Dt/Tm: 07/30/2023 04:26PM Division of Sports Medicine OA Patient Care team information Care Team Personnel Name: DO Galicia Amanda Mae Position: Referring DIRECT Member Role: Primary Care Provider Address: Address: [address] [place] [address] [place]
--- OUTSIDE RECORDS SUMMARY | 2023-11-22 09:03 | External Medical Summary | Summary of Care ---
Author Name Unknown Organization [facility] Address [address] [facility] [place] [address] Phone [phone] Care Team Providers Care Car Oiler Name Role Phone Madhuri Galicia DO Primary Care Provider Reason for Visit * Reason Comments Dosage Adjustment Via Phone (anticoag Cl inic) Hospital Follow-Up Encounter Details Date Type Department Care Team (Latest Contact Info) Description 07/29/2023 5:10 PM EST Anticoagulation Pharmacy, [address] [place] [address] [place] [address] Recurrent acute deep vein thrombosis (DVT) of [...] less than 8.0% ([facility]) Take 1 Tablet by mouth in the [...] less than 8.0% ([facility]) Inject 1.5 mg under the skin once [...] MANAGEMENT 11/18/200905/05 Overview: Stefanie Powell RN Outpatient Burlap SpreaderHoist Cylinder Loader number [phone] Fax number [phone] Hypotension 11/08/2009 12/19/2012 Follow-up examination, follo wing [...] 02/17/2008 03/12/2017 Anticoagulation management encounter 02/17/2008 08/20/2008 long-term current use of ant icoagulant therapy 02/17/2008 [...] mRNA, LNP-s, No Pre serve, 2-Dose Series ([employer]) 05/27/2021 COVID-19, LNP-s, No Preserve , Rodrick-sucrose, Ages 12+ (Pfizer) 02/03/2022 COVID-19, MRNA-LNP, 23-24, P F, 30 MCG/0.3 mL, 12 YRS AND ABOVE, IM (Iguana[employer]-Triples [employer]) 04/27/2023 Covid-19 Ad26, Single Dose (CMP.LY/[employer]MIC BI[employer]) 10/25/2020 Covid-19, Mrna, Lnp-s, Pf, B ivalent, 30 Mcg, IM, 12 yrs and above (Dennoo) 06/09/2022 H1N1 2009 Influenza, IM 08/02/2009 Pneumococcal [...] of this encounter Progress Notes * Augusta eKssler RPh - 07/29/2023 3:21 PM EST Patient Phone Numbers Called and spoke spouse. Reports patient went to [facility] yesterday, however currently back at [facility]. [facility] note to completed at time of documentation. Augusta Kessler RPh, PharmD Clinical Pharmacist - Enrollment Management Manager Medication Therapy [facility] 07/29/2023, 4:40 PM [phone] documented in this encounter Plan of Treatment Upcoming Encounters Date Type Department Care Team (Late st Contact Info) Description 08/04/2023 1:50 PM EST Office Visit Family Medicine [address] [place] [phone] Madhuri Galicia [address] [place] [phone] 08/05/2023 5:10 PM EST Anticoagulation Pharmacy, [address] [place] [address] [place] [address] 01/19/2024 1:30 PM EDT Imaging Radiology [address] [place] [address] 06/14/2024 1:00 PM EST Nurse Only Ancillary [address] [place] [address] [place], Nurse Annual [address] [place] [address] Health Maintenance Due Date Last Done Comments [...] Additional history exists CKD PHOS USE SMARTSET 66227 01/27/202401/16, 11/05/2021, 10/18/2020, Additional history exists Albumin/Creatinine Ratio 01/28/2024 023, 11/06/2021, 01/03/2020, Additional history exists Diabetic Eye Exam 02/20/2024 02/19/2023, , 11/23/2021, Additional history exists Depression Screening 06/08/2024 06/08/2023 CKD HGB USE SMARTSET 45958 07/28/202407/28, 07/21/2023, 06/17/2023, Additional history exists DXA Scan 12/02/2024 12/02/2022, 11/16, 02/11/2015, Additional history exists DTaP,Tdap,and Td Vaccines (3 - Td or Tdap) 04/26/2029 04/26/2019, 02/09/2008 Hepatitis C Screening Completed 01/20/2010, 010 Pneumococcal Vaccine: 65+ Years Completed 06/08/2016, 03/06/2015, 12/21/2014, Additional history exists Zoster Vaccines Completed 05/29/2019, 03/19, 07/05/2008 VITAMIN D LEVEL ONCE IN A LIFETIME-USE SMARTSET# 76526 Completed 01/26/2023, 01/03/2020, 04/22/2018, Additional history exists [...] this encounter Medical Devices Implanted Type Area Elevators Inspector Device Identifier Shelf Expiration Date Model / Serial / Lot Alloderm 2x4 Sheet [id number] - [id number] [place]ed:Q[place]08[place] [facility] [place] - Human N/A: Abdomen LIFE CELL AFIA 02/16/2011 [id number] / / [id number] Mesh 10 X 14 [id number] - [id number] Implanted:Qty : 1 on 02/02/2011 [place] [facility] [place]/A: Abdomen [employer]UM [employer] AFIA 01/03/2015 [id number] / / [id number] Pelvic Coil 2 Implanted:Qty : 5 on 02/04/2011 [place] [facility] [place] Left: Pelvis FITiST / / [id number] Description:figure 8 documented as of this encounter Visit Diagnoses Diagnosis 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 No Full Code 01/18/2010 8:53 PM 01/30/2010 6:41 PM This o rder reflects the patients wishes and were consensually agreed upon. Question Answer Comments Discussion of Advance Directives occurred with: Patient Does the patient have a Living Will? No Does the patient have Health Care Power of Blade Grinder? No Full Code 11/18/2009 11:54 AM 11/19/2009 4:09 PM This o rder reflects the patients wishes and were consensually agreed upon. Question Answer Comments Discussion of Advance Directives occurred with: Patient Does the patient have a Living Will? No Does the patient have Health Care Power of Blade Grinder? No Full Code 11/13/2009 8:29 AM 11/14/2009 5:08 PM This order reflects the patients wishes and were consensually agreed upon. Care Teams Car Oiler Relationship Specialty Start Date End Date Madhuri Galicia DO [address] [place] [address] [place] [address] PCP - General Internal Medicine 02/16/17 documented as of this encounter
[2023-11-22] MEDS: ASPIRIN 81 MG ECTAB PO SCH (09:31)
[2023-11-22] MEDS: allopurinoL 100 MG TAB PO SCH (09:31)
[2023-11-22] MEDS: METOPROLOL TARTRATE 25 MG TAB PO SCH (09:32)
[2023-11-22] MEDS: FERROUS SULFATE 325 MG TAB PO SCH (09:32)
[2023-11-22] MEDS: ENOXAPARIN INJ 60 MG/0.6 ML SYR SQ SCH (09:32)
[2023-11-22] MEDS: PANTOprazole 40 MG TAB PO SCH (09:33)
[2023-11-22] MEDS: COLESTIPOL HCL 1 GM TAB PO SCH (09:33)
[2023-11-22 09:38] LABS: D Dimer 1350 ug/L FEU (0-500)
[2023-11-22] MEDS: LANTUS PER UNIT CHARGE SQ SCH (09:42)
--- NOTE | 2023-11-22 15:55 | Hospitalist Progress Note ---
Date of Service November 22, 2023 Assessment & Plan (1) Localized swelling of both lower legs: Plan: Acute left lower extremity DVT H/O hypercoagulable state, recurrent PE/DVT S/P IVC on Lovenox 40 mg SQ daily at home H/O spontaneous leg hematoma on weight-based Lovenox in June 2023 H/O chronic right leg lymphedema per record H/O NOAC failure --Venous Doppler:Slight decrease in the previously demonstrated chronic nonocclusive deep venous thrombosis in the right common femoral and proximal superficial femoral veins. Occlusive thrombus in 1 of 2 proximal to mid left superficial femoral veins. No prior study available to determine chronicity. S ubcutaneous soft tissue swelling. -- Discussed with hematology Dr. Nielsen on 11/22/2023: Given history of spontaneous bleeding, advised to continue Lovenox at 60 mg SQ BID Monitor CBC Suspected UTI Urine culture pending Empirically on Rocephin Lumbago No history of recent falls Obtain lumbar x-ray Fall precautions PT OT as able Possible acute gout Left wrist x-ray pending Started on prednisone Also on allopurinol Chronic diastolic heart failure Not on any diuretics at home --ECHO: Mild concentric LVH. Left ventricle is normal in size. Left ventricle wall motion is normal. EF 60 to 65% with grade 1 diastolic dysfunction. Attic valve leaflets are moderately calcified. A bicuspid aortic valve cannot be excluded. Mild to moderate valvular aortic stenosis. Monitor volume status Will advised to follow-up with cardiology on discharge Continue metoprolol, losartan CKD III Creatinine at baseline Monitor renal function Avoid nephrotoxic agents as able Hypomagnesemia Replete electrolytes as needed Monitor Hypertension Continue metoprolol, olmesartan Monitor BP PVD S/P surgery Continue aspirin DM II Last HbA1c 5.8 Continue insulin while hospitalized Monitor BGs Endometrial cancer S/P surgery Chronic anemia Hb stable Mood disorder, stable DVT Px: Therapeutic Lovenox as above CODE STATUS Full code Admission and Anticipated Discharge Date Admission Date: November 21, 2023 Subjective Patient is seen and examined at bedside States having leg weakness, difficulty with ambulating Also reports lower back pain and left wrist pain Denies any chest pain, dyspnea, nausea, vomiting, abdominal pain Discussed with oncology Dr. Nielsen today Review of Systems Review of Systems: All systems reviewed & are unremarkable except as noted in Subjective Physical Exam Physical Exam: Physical Exam: Vitals signs as noted above General Appearance:Moderately built and nourished, no apparent distress Head: normocephalic, Atraumatic Eyes: normal inspection, EOMI Neck: supple, Trachea midline Respiratory/Chest: Normal breath sounds, CTA, No accessory muscle use Cardiovascular: S1, S2, + murmur Abdomen/GI:Soft, Non tender, Bowel sounds present Extremities/Musculoskeletal:normal inspection, ++B/L LE edema, L wrist swollen, erythema Neurologic/Psych:AAOX3, grossly no focal neurological deficits Skin: normal color, warm Results & Data Results & Data Vital Signs (Past 12 Hours) Vital Signs Temp Pulse Pulse Pulse Resp BP BP 11/22/23 14:52 36.0 C L 62 18 117/70 11/22/23 13:59 65 20 117/83 11/22/23 10:31 58 L 17 151/72 H 11/22/23 08:35 57 L 18 153/68 H 11/22/23 08:34 11/22/23 07:25 55 L 11/22/23 06:14 59 L 16 149/71 H 11/22/23 03:50 59 L Pulse Ox Pulse Ox O2 Del Method O2 Del Method 11/22/23 14:52 95 Room Air 11/22/23 13:59 94 Room Air 11/22/23 10:31 96 Room Air 11/22/23 08:35 100 Room Air 11/22/23 08:34 94 Room Air 11/22/23 07:25 11/22/23 06:14 96 Room Air 11/22/23 03:50 Laboratory Results Short CBC 11/21/23 11/22/23 Range/Units 20:11 04:22 WBC 10.87 H 10.94 H (4.8-10.8) K/ul Hgb 10.6 L 10.9 L (12.0-16.0) g/dl Hct 33.9 L 34.1 L (37.0-47.0) % Plt Count 252 265 (130-400) K/uL BMP 11/21/23 11/22/23 20:11 04:22 Sodium 138 138 Potassium 4.5 4.2 Chloride 110 H 108 H Carbon Dioxide 21 22 BUN 45 H 42 H Creatinine 1.10 0.98 Glucose 217 H 162 H Calcium 9.2 9.4 Liver Function 11/21/23 Range/Units 20:11 Total Bilirubin 0.9 (0.2-1.0) mg/dl Direct Bilirubin 0.1 (0-0.2) mg/dl AST 20 (13-39) U/L ALT 25 (7-52) U/L Alkaline Phosphatase 98 (34-104) U/L Albumin 3.4 (3.4-5.0) gm/dl Urine /01/09 Range/Units Unknown Urine Color Yellow Urine Appearance Clear (Clear) Urine pH 5.5 (4.5-7.5) Ur Specific [place] 1.008 (1.000-1.030) Urine Protein Negative (Negative) Urine Glucose (UA) Negative (Negative)
[2023-11-22] MEDS: cefTRIAXone SODIUM 1,000 MG/50 ML BAG IV SCH (16:32)
--- NOTE | 2023-11-22 16:38 | XRay Report ---
XR wrist LT 2V CLINICAL HISTORY: Wrist Pain/swelling TECHNIQUE: 2 views of the left wrist were obtained. Comparison: None available at the time of this dictation. FINDINGS: There is no evidence of an acute fracture. Extensive degenerative changes are seen in the radiocarpal articulation. Cystic changes and erosion of the distal radius ulna and carpal bones are seen. Soft t issue swelling is seen. IMPRESSION: Extensive degenerative changes are seen with bony destruction at the radiocarpal and carpal articulat ions. ACT 112: Negative or not required by law. Electronically signed by: Hipolito Jimenez M.D. 11/22/2023 4:36 PM
--- NOTE | 2023-11-22 16:51 | XRay Report ---
XR lumbar spine 2-3V CLINICAL HISTORY: Back Pain COMPARISON STUDY: Lumbar spine 12/21/2008. FINDINGS: Moderate levoscoliosis again noted within the lumbar spine. 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 This is similar to the prior study. Mode rate to severe degenerative disc disease within the lower thoracic spine is also noted. The visualize d sacrum is intact. An IVC filter is unchanged in position. Suture material within the left upper yuriy drant. IMPRESSION: 1. No fractures within the lumbar spine. 2. Moderate levoscoliosis and severe degenerative changes again noted. ACT 112: Negative or not required by law. Electronically signed by: Agus Israel M.D. 11/22/2023 4:49 PM
[2023-11-22] MEDS: predniSONE 20 MG TAB PO SCH (16:58)
[2023-11-22] MEDS: ACETAMINOPHEN 325 MG TAB PO PRN (17:03)
[2023-11-22] MEDS: traMADol HCL 50 MG TABLET PO PRN (21:18)
--- NOTE | 2023-11-22 22:02 | Electrocardiogram Report ---
Test Reason : Blood Pressure : / mmHG Vent. Rate : 082 BPM Atrial Rate : 082 BPM P-R Int : 220 ms QRS Dur : 126 ms QT Int : 398 ms P-R-T Axes : 065 -39 -26 degrees QTc Int : 464 ms Sinus rhythm with 1st degree A-V block Left axis deviation Right bundle branch block Possible Lateral infarct (cited on or before 07-MAY-2020) Abnormal ECG When compared with ECG of 07-MAY-2020 14:12, Questionable change in initial forces of Anterolateral leads Confirmed by Jonathan Zelaya ([id number]) on 11/22/2023 10:02:12 PM Referred By: REFERRED SELF Confirmed By:Jonathan Zelaya
[2023-11-23 07:29] LABS: Hematocrit (blood only) 31.8 % (37.0-47.0); Hemoglobin 10.2 g/dl (12.0-16.0); Mean Corpuscular Hemoglobin 29.6 pg (25.0-34.0); Mean Corpuscular Hgb Conc 32.1 g/dL (32.0-36.0); Mean Corpuscular Volume 92.2 fL (80.0-100.0); Mean Platelet Volume 11.4 fL (9.4-12.4); Platelet Count 248 K/uL (130-400); RDW Coefficient of Variation 16.3 % (11.5-14.5); Red Blood Count 3.45 M/uL (4.20-5.40); White Blood Count 8.34 K/ul (4.8-10.8)
[2023-11-23 08:03] LABS: BUN Creatinine Ratio 45.6 (10-20); Calcium 8.4 mg/dl (8.6-10.3); Creatinine Clr Calc Pharmacy 44.2 ml/min; Est GFR (African American) 61.6 ml/min; Est GFR (Non-African American) 53.1 ml/min; Magnesium 1.8 mg/dl (1.7-2.4); Potassium 4.8 mmol/L (3.5-5.1); Uric Acid 4.9 mg/dl (2.6-7.2)
[2023-11-23] MEDS: LOSARTAN POTASSIUM 50 MG TAB PO SCH (10:20)
[2023-11-23] MEDS: FUROSEMIDE 20 MG TAB PO ONE (14:45)
--- NOTE | 2023-11-23 17:15 | Hospitalist Progress Note ---
Date of Service November 23, 2023 Assessment & Plan (1) Localized swelling of both lower legs: Plan: Acute left lower extremity DVT H/O hypercoagulable state, recurrent PE/DVT S/P IVC on Lovenox 40 mg SQ daily at home H/O spontaneous leg hematoma on weight-based Lovenox in June 2023 H/O chronic right leg lymphedema per record H/O NOAC failure --Venous Doppler:Slight decrease in the previously demonstrated chronic nonocclusive deep venous thrombosis in the right common femoral and proximal superficial femoral veins. Occlusive thrombus in 1 of 2 proximal to mid left superficial femoral veins. No prior study available to determine chronicity. S ubcutaneous soft tissue swelling. -- Discussed with hematology Dr. Nielsen on 11/22/2023: Given history of spontaneous bleeding, advised to continue Lovenox at 60 mg SQ BID Monitor CBC Needs acute rehab for placement Suspected UTI Urine culture Growing gram-negative bacilli Empirically on Rocephin Adjust antibiotics as able Lumbago No history of recent falls --lumbar x-ray:No fractures within the lumbar spine. Moderate levoscoliosis and severe degenerative changes again noted. Fall precautions PT OT --Acute Rehab Possible acute gout Left wrist x-ray:Extensive degenerative changes are seen with bony destruction at the radiocarpal and carpal articulations. Started on prednisone--titrate down as able Also on allopurinol Chronic diastolic heart failure Not on any diuretics at home --ECHO: Mild concentric LVH. Left ventricle is normal in size. Left ventricle wall motion is normal. EF 60 to 65% with grade 1 diastolic dysfunction. Attic valve leaflets are moderately calcified. A bicuspid aortic valve cannot be excluded. Mild to moderate valvular aortic stenosis. Monitor volume status Will advised to follow-up with cardiology on discharge Continue metoprolol, losartan Lasix as needed for edema CKD III Creatinine at baseline Monitor renal function Avoid nephrotoxic agents as able Hypomagnesemia Replete electrolytes as needed Monitor Hypertension Continue metoprolol, olmesartan Monitor BP PVD S/P surgery Continue aspirin DM II Last HbA1c 5.8 Continue insulin while hospitalized Monitor BGs Endometrial cancer S/P surgery Chronic anemia Hb stable Mood disorder, stable DVT Px: Therapeutic Lovenox as above CODE STATUS Full code Admission and Anticipated Discharge Date Admission Date: November 21, 2023 Subjective Patient is seen and examined at bedside States feeling better today Wrist pain much improved Still has mild lower back pain Leg edema slowly improving Denies any chest pain, dyspnea, nausea, vomiting, abdominal pain Review of Systems Review of Systems: All systems reviewed & are unremarkable except as noted in Subjective Physical Exam Physical Exam: Physical Exam: Vitals signs as noted above General Appearance:Moderately built and nourished, no apparent distress Head: normocephalic, Atraumatic Eyes: normal inspection, EOMI Neck: supple, Trachea midline Respiratory/Chest: Normal breath sounds, CTA, No accessory muscle use Cardiovascular: S1, S2, + murmur Abdomen/GI:Soft, Non tender, Bowel sounds present Extremities/Musculoskeletal:normal inspection, ++B/L LE edema, L wrist swollen, erythema Neurologic/Psych:AAOX3, grossly no focal neurological deficits Skin: normal color, warm Results & Data Results & Data Vital Signs (Past 12 Hours) Vital Signs Temp Pulse Pulse Resp BP Pulse Ox Pulse Ox 11/23/23 15:21 36.4 C L 54 L 19 149/78 H 98 11/23/23 11:04 36.3 C L 50 L 19 159/71 H 94 11/23/23 08:00 94 11/23/23 07:06 36.4 C L 54 L 19 127/64 94 11/23/23 07:00 11/23/23 06:00 78 O2 Del Method O2 Del Method 11/23/23 15:21 Room Air 11/23/23 11:04 Room Air 11/23/23 08:00 Room Air 11/23/23 07:06 Room Air 11/23/23 07:00 Room Air 11/23/23 06:00 Laboratory Results Short CBC 11/23/23 Range/Units 06:53 WBC 8.34 (4.8-10.8) K/ul Hgb 10.2 L (12.0-16.0) g/dl Hct 31.8 L (37.0-47.0) % Plt Count 248 (130-400) K/uL BMP 11/23/23 06:53 Sodium 135 L Potassium 4.8 Chloride 105 Carbon Dioxide 21 BUN 47 H Creatinine 1.03 Glucose 125 H Calcium 8.4 L
[2023-11-24 07:46] LABS: Hemoglobin 10.3 g/dl (12.0-16.0); Mean Corpuscular Hemoglobin 29.5 pg (25.0-34.0); Mean Corpuscular Hgb Conc 32.2 g/dL (32.0-36.0); Mean Corpuscular Volume 91.7 fL (80.0-100.0); Mean Platelet Volume 11.4 fL (9.4-12.4); Platelet Count 268 K/uL (130-400); RDW Coefficient of Variation 16.2 % (11.5-14.5); RDW Standard Deviation 54.4 fL (36.4-46.3); Red Blood Count 3.49 M/uL (4.20-5.40); White Blood Count 7.74 K/ul (4.8-10.8)
[2023-11-24 08:22] LABS: BUN Creatinine Ratio 41.7 (10-20); Calcium 7.9 mg/dl (8.6-10.3); Creatinine Clr Calc Pharmacy 34.5 ml/min; Est GFR (African American) 45.6 ml/min; Est GFR (Non-African American) 39.4 ml/min; Magnesium 1.9 mg/dl (1.7-2.4); Potassium 4.6 mmol/L (3.5-5.1)
--- NOTE | 2023-11-24 12:49 | Hospitalist Progress Note ---
Date of Service November 24, 2023 Assessment & Plan (1) Localized swelling of both lower legs: Plan: Acute left lower extremity DVT H/O hypercoagulable state, recurrent PE/DVT S/P IVC on Lovenox 40 mg SQ daily at home H/O spontaneous leg hematoma on weight-based Lovenox in June 2023 H/O chronic right leg lymphedema per record H/O NOAC failure --Venous Doppler:Slight decrease in the previously demonstrated chronic nonocclusive deep venous thrombosis in the right common femoral and proximal superficial femoral veins. Occlusive thrombus in 1 of 2 proximal to mid left superficial femoral veins. No prior study available to determine chronicity. S ubcutaneous soft tissue swelling. Previous Provider had discussed with hematology Dr. Nielsen on 11/22/2023: Given history of spontaneous bleeding, advised to continue Lovenox at 60 mg SQ BID Monitor CBC Continue lovenox sq 60mg BID sq UTI Urine culture Growing Klebsiella Was on Rocephin Change to cefdinir based on sensitivities Back pain No history of recent falls --lumbar x-ray:No fractures within the lumbar spine. Moderate levoscoliosis and severe degenerative changes again noted. Fall precautions Optimize pain control Lidocaine patch Tylenol prn Possible acute gout Left wrist x-ray:Extensive degenerative changes are seen with bony destruction at the radiocarpal and carpal articulations. Improving on prednisone 20mg. Will treat for some days and titrate off Also on allopurinol Chronic diastolic heart failure Not on any diuretics at home --ECHO: Mild concentric LVH. Left ventricle is normal in size. Left ventricle wall motion is normal. EF 60 to 65% with grade 1 diastolic dysfunction. Attic valve leaflets are moderately calcified. A bicuspid aortic valve cannot be excluded. Mild to moderate valvular aortic stenosis. Monitor volume status To follow-up with cardiology on discharge Continue metoprolol, losartan Lasix as needed for edema CKD III Monitor renal function Avoid nephrotoxic agents as able Hypertension Continue metoprolol, olmesartan Monitor BP PVD S/P surgery Continue aspirin DM II Last HbA1c 5.8 Continue insulin while hospitalized Monitor BGs Endometrial cancer S/P surgery Chronic anemia Hb stable Mood disorder, stable DVT Px: Therapeutic Lovenox as above CODE STATUS Full code I spent a total of 40 minutes coordinating, documenting and providing care for this patient excluding time spent in performance of separately billed services Admission and Anticipated Discharge Date Admission Date: November 21, 2023 Subjective Patient seen and examined. Reports low back pain, chronic intermittent. Severe today. Reports left wrist pain is much improved. Reports leg swelling is much improved. Denies any other complaints on review of system Physical Exam Constitutional: + well hydrated; no acute distress Eyes: PERRL, conjunctivae normal, anicteric sclerae ENMT: external ear and nose normal, oropharynx normal Respiratory: normal respiratory effort, lungs clear to auscultation Cardiovascular: Rate/Rhythm: regular rate and regular rhythm Heart Sounds: + murmur Gastrointestinal (Abdomen): normal bowel sounds, soft, nontender, no hepatosplenomegaly Musculoskeletal: B/L Pedal edema Neurologic: PERRL, EOMI, accommodation nl, no face palsy, no dysarthria Psychiatric: A+Ox3, euthymic affect Results & Data Results & Data Vital Signs (Past 12 Hours) Vital Signs Temp Pulse Pulse Resp BP BP Pulse Ox 11/24/23 11:05 36.4 C L 52 L 18 134/76 96 11/24/23 07:05 36.4 C L 51 L 19 128/72 93 11/24/23 07:00 49 L 11/24/23 02:49 36.5 C 50 L 18 133/69 95 O2 Del Method 11/24/23 11:05 Room Air 11/24/23 07:05 Room Air 11/24/23 07:00 11/24/23 02:49 Room Air Laboratory Results Abnormal lab results 11/23/23 11/23/23 11/24/23 Range/Units 16:07 20:31 07:02 RBC 3.49 L (4.20-5.40) M/uL Hgb 10.3 L (12.0-16.0) g/dl Hct 32.0 L (37.0-47.0) % RDW Std Deviation 54.4 H (36.4-46.3) fL RDW Coeff of Beka 16.2 H (11.5-14.5) % BUN 55 H (6-23) mg/dl Creatinine 1.32 H (0.6-1.2) mg/dl BUN/Creatinine Ratio 41.7 H (10-20) POC Glucose 159 H 153 H (70-99) mg/dl Calcium 7.9 L (8.6-10.3) mg/dl 11/24/23 Range/Units 11:03 RBC (4.20-5.40) M/uL Hgb (12.0-16.0) g/dl Hct (37.0-47.0) % RDW Std Deviation (36.4-46.3) fL RDW Coeff of Beka (11.5-14.5) % BUN (6-23) mg/dl Creatinine (0.6-1.2) mg/dl BUN/Creatinine Ratio (10-20) POC Glucose 149 H (70-99) mg/dl Calcium (8.6-10.3) mg/dl
[2023-11-24] MEDS: LIDOCAINE 5% 1 PATCH TD STA (17:56)
[2023-11-24] MEDS: CEFDINIR 300 MG CAP PO SCH (20:55)
--- NOTE | 2023-11-25 13:00 | Discharge Summary ---
Date of Service November 25, 2023 Admission HPI Per Admitting Provider History obtained from patient and records. Medical history significant for moderate (TTE 2020), AAA status post surgery, hypertension, hyperlipidemia, PUD/GERD status post surgery, hypercoagulable state, hx recurrent PE DVT status post IVC filter placement on chronic Lovenox prophylaxis, history NOAC failure, DM2 on oral medications, endometrial cancer status post surgery, chronic left leg lymphedema, chronic anemia (baseline hemoglobin of 10), past history of C. difficile, mood disorder. Last confinement June 2023 for spontaneous right femoral hematoma on weight- based Lovenox BID dosing. Patient eventually discharged Lovenox once daily anticoagulation eventually resumed with outpatient periodic anti-Xa levels to guide therapy following [facility] transfusion specialist recommendations. 2 weeks ago, patient noted increase left leg swelling followed by worsening of chronic RLE swelling. Patient denies chest pain, SOB. Increasing weakness from leg heaviness. No fever, no chills. No headache symptoms. No weight gain as per patient. Patient snores at home according to . Unaware of apneic episodes. Blood pressure not monitored at home. Denies dietary indiscretion. SBP 190s upon arrival at the ER. 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 Admission Exam Per Admitting Provider GENERAL: Comfortable, slightly anxious, no respiratory distress SKIN: Pallor, warm HEENT: Bespectacled, pale palpebral conjunctivae, no ptosis, moist buccal mucosa NECK : Supple, no tenderness CHEST : CTA, no tenderness HEART : RRR, systolic murmur ABDOMEN: Some distention, nontender EXTREMITIES : Bilateral LE swelling with minimal tenderness, no other conspicuous deformities noted NEUROLOGIC : Coherent, no facial asymmetry, no other gross focality Principal Diagnosis Acute Deep Vein thrombosis Urinary tract infection Acute gout Ambulatory dysfunction Discharge Exam Constitutional + well hydrated; no acute distress Eyes PERRL, conjunctivae normal, anicteric sclerae ENMT external ear and nose normal, oropharynx normal Respiratory normal respiratory effort, lungs clear to auscultation Cardiovascular Rate/Rhythm: regular rate and regular rhythm Heart Sounds: + murmur Gastrointestinal (Abdomen) normal bowel sounds, soft, nontender, no hepatosplenomegaly Musculoskeletal +pedal edema Neurologic PERRL, EOMI, accommodation nl, no face palsy, no dysarthria Psychiatric A+Ox3, euthymic affect Discharge Data Allergies Allergy/AdvReac Type Severity Reaction Status Date / Time No Known Allergies Allergy Verified 07/28/23 22:47 Consultations 11/21/23 22:19 ED Decision to Admit Stat Ordered Studies 11/21/23 23:52 US leg [US venous doppler LE BI] Stat Hospital Course (1) Localized swelling of both lower legs: Acute left lower extremity DVT H/O hypercoagulable state, recurrent PE/DVT S/P IVC on Lovenox 40 mg SQ daily at home H/O spontaneous leg hematoma on weight-based Lovenox in June 2023 H/O chronic right leg lymphedema per record H/O NOAC failure --Venous Doppler:Slight decrease in the previously demonstrated chronic nonocclusive deep venous thrombosis in the right common femoral and proximal superficial femoral veins. Occlusive thrombus in 1 of 2 proximal to mid left superficial femoral veins. No prior study available to determine chronicity. Subcutaneous soft tissue swelling. Dr Royal had discussed with hematology Dr. Nielsen on 11/22/2023: Given history of spontaneous bleeding, advised to continue Lovenox at 60 mg SQ BID Continue lovenox sq 60mg BID sq Patient needs to follow up with Hematology UTI Urine culture Growing Klebsiella Was on Rocephin inpatient Change to cefdinir to complete treatment Back pain No history of recent falls --lumbar x-ray:No fractures within the lumbar spine. Moderate levoscoliosis and severe degenerative changes again noted. Fall precautions Lidocaine patch Tylenol prn Patient reports chronic intermittent back pain. Stated she follows with ortho Advise to follow up with ortho outpatient Possible acute gout Left wrist x-ray:Extensive degenerative changes are seen with bony destruction at the radiocarpal and carpal articulations. Resolved with prednisone treatment inpatient Also on allopurinol Chronic diastolic heart failure Not on any diuretics at home --ECHO: Mild concentric LVH. Left ventricle is normal in size. Left ventricle wall motion is normal. EF 60 to 65% with grade 1 diastolic dysfunction. Attic valve leaflets are moderately calcified. A bicuspid aortic valve cannot be excluded. Mild to moderate valvular aortic stenosis. Monitor volume status To follow-up with cardiology on discharge Continue metoprolol, losartan CKD III Monitor renal function Avoid nephrotoxic agents as able Hypertension Continue metoprolol, olmesartan Monitor BP PVD S/P surgery Continue aspirin DM II Last HbA1c 5.8 Continue home antidiabetic regimen Endometrial cancer S/P surgery Chronic anemia Hb stable Mood disorder, stable Total Time Total Time Spent Total Time Spent (In Minutes): 40 Total Time Includes: Examination of the Patient, Discharge Planning and Medication Reconciliation Discharge Plan Discharge Items Patient Disposition: Transfer Halfway Fac Reason For Visit: Leg swelling, weakness Discharge Diagnosis: Acute Deep Vein thrombosis Urinary tract infection Acute gout Ambulatory dysfunction Activity: As commented below Activity Comment: As instructed by Physical and occupation therapist Non-emergency contact: Primary Care Provider Call non-emergency contact if: you have any medication questions and your symptoms worsen Follow-up/Referrals: Madhuri Galicia DO [Primary Care Provider] - Diet: Carb Consistent or DM2 and Heart Healthy Addtl Attending Provider Instructions: Mrs Ricks You presented to the hospital with leg swelling and weakness You were evaluated and managed for the above listed diagnoses You are being discharged on Lovenox 60mg subcutaneous injection twice a day until you see your pony trimmer. You are being discharged on 3 more days of antibiotics to complete treatment. Please ensure follow up with Orthopedic doctor for your back issues. It was a pleasure taking care of you. Pending Studies at Discharge: No Stand-Alone Forms: My [facility] Skilled Items Patient informed of condition?: Yes DNR: Yes Discharge Level of Care: Skilled Communicable Disease: No Discharge Prognosis: Stable Lines: None Urinary Catheter: No Medications and DC Order Prescriptions: New cefdinir 300 mg Capsule 300 mg PO BID 3 Days Qty: 6 0RF enoxaparin 60 mg/0.6 mL Syringe 60 mg subcut BID 30 Days Qty: 36 0RF tramadol 50 mg Tablet 25 mg PO TID PRN (Reason: severe pain (scale score 7-10)) Qty: 14 0RF lidocaine 4 % adhesive patch,medicated 1 patch topical DAILY Qty: 10 0RF Rx Instructions: may leave on for up to 12 hrs on lower back Continued triamcinolone acetonide 0.1 % cream 1 appln topical BID PRN (Reason: Skin Irritation) acetaminophen [Tylenol] 325 mg Tablet 650 mg PO Q4H PRN (Reason: Pain (Scale Score 1-3)/FEVER >100.4) Qty: 50 0RF alendronate 70 mg tablet 70 mg PO WK Qty: 4 0RF Rx Instructions: [place] allopurinol 100 mg tablet 100 mg PO DAILY Qty: 30 0RF aspirin 81 mg Tablet,Delayed Release (Dr/Ec) 81 mg PO DAILY Qty: 30 0RF pantoprazole 20 mg Tablet,Delayed Release (Dr/Ec) 20 mg PO DAILY Qty: 30 0RF ferrous sulfate 325 mg (65 mg iron) Tablet 325 mg PO DAILY Qty: 30 0RF metformin 500 mg Tablet Extended Release 24 Hr 500 mg PO BID Qty: 60 0RF colestipol 1 gram tablet 1 gm PO BID Qty: 60 0RF olmesartan [Benicar] 5 mg Tablet 10 mg PO DAILY Qty: 30 0RF metoprolol tartrate 25 mg tablet 25 mg PO BID Qty: 60 0RF cholecalciferol (vitamin D3) 2,000 unit tablet 2,000 units PO DAILY Qty: 30 0RF omega 3-wdt-fia-fish oil [Fish Oil] 1,000 mg (120 mg-180 mg) capsule 4 cap PO DAILY Qty: 60 0RF Trulicity 1.5 mg/0.5 mL Pen Injector 1.5 mg SUBCUT WK Qty: 2 0RF Rx Instructions: [facility]IDA[facility] Discontinued enoxaparin 40 mg/0.4 mL syringe 40 mg subcut QAM Discharge Orders: Discharge Order (Routine); Ordered 11/25/23 Ordered By: Mi Perry Admission Data Admit Date/Time: 11/21/23 23:50 Attending Provider: Mi Perry I. Admit Provider: Aristeo Fernandez Primary Care Provider: Madhuri Galicia Other Providers: Aristeo Fernandez; [facility]; Juan Francisco Royal Other Interventions: Discharge Summary Assessment (RN) Last Done: 11/25/23 14:38
== END 2023-11-25 14:55 | DRG 300 ==
LOC: ED 19:54 → SUATTDRO 23:50 → EDINP 23:50 → 2S 11-22 01:04

== ENCOUNTER 2025-02-01 20:12 | Inpatient (IN) ==
[2025-02-01 21:53] LABS: Hematocrit (blood only) 39.5 % (37.0-47.0); Hemoglobin 12.8 g/dl (12.0-16.0); Immature Granulocytes # (auto) 0.06 K/uL (0.01-0.20); Immature Granulocytes % (auto) 0.7 %; Mean Corpuscular Hemoglobin 31.4 pg (25.0-34.0); Mean Corpuscular Volume 97.1 fL (80.0-100.0); Platelet Count 263 K/uL (130-400); RDW Standard Deviation 51.7 fL (36.4-46.3); Red Blood Count 4.07 M/uL (4.20-5.40); White Blood Count 8.52 K/ul (4.8-10.8)
[2025-02-01 22:00] LABS: Alanine Aminotransferase 8.0 U/L (7-52); Albumin Globulin Ratio 1.1 (0.9-2); Alkaline Phosphatase 61.0 U/L (34-104); Anion Gap 10.0 (3-11); Bilirubin,Total 1.2 mg/dl (0.2-1.0); Blood Urea Nitrogen 41.0 mg/dl (6-23); Calcium 9.6 mg/dl (8.6-10.3); Carbon Dioxide 22.0 mmol/L (21-32); Chloride 103.0 mmol/L (98-107); Creatinine Clr Calc Pharmacy 25.3 ml/min; Globulin 3.1 gm/dl (2.5-4.0); Glucose 149.0 mg/dl (70-99(Fasting)); Potassium 4.9 mmol/L (3.5-5.1); Sodium 135.0 mmol/L (136-145); Total Protein 6.5 gm/dl (6.0-8.3)
--- NOTE | 2025-02-01 22:07 | Emergency Department Note ---
Impression & Plan Weakness, Acute UTI ED Provider Note CHIEF COMPLAINT: Weakness HISTORY OF PRESENT ILLNESS: This 79-year-old female patient presents to the emergency department via ambulance for evaluation of weakness. Patient states symptoms started about a week ago. She states she has had a decreased appetite and some burning with urination for that same period of time. The patient denies any fever. She has any abdominal pain, chest pain, shortness of breath. No leg pain or swelling. She states tonight, she was trying to get ready for bed and felt that she could not even put on her socks or pajamas and decided to call the ambulance. She denies history of similar symptoms. She has not been eating or drinking well. She endorses a 20 pound weight loss since October. Patient does report some nausea but no vomiting. No numbness or tingling. She denies any recent fall or trauma. No headache, dizziness, lightheadedness. History provided by: Patient REVIEW OF SYSTEMS: A 10 system review of systems was performed with positives and pertinent negatives listed in the history of present illness. All other systems were reviewed and are negative. ALLERGIES: NKDA PHYSICAL EXAM: VITALS: Vitals are noted on the nurse's note and reviewed by myself. GENERAL: This is a 79-year-old female, in no acute distress, nondiaphoretic, well-developed well-nourished. SKIN: Bruising on the lateral aspect of the right lower leg which the patient states is from a recent transfer from her chair to her wheelchair by her . Patient states she accidentally struck the wheelchair. The skin was without rashes, erythema, edema, or bruising. There is no tenting of the skin. Capillary refill less than 2 seconds. HEAD: Normocephalic atraumatic. EARS: External auditory canals clear, tympanic membranes pearly victor without erythema or effusion bilaterally. No hemotympanum. Negative orozco sign EYES: Pupils equal round and reactive to light and accommodation. Conjunctivae without injection, sclerae without icterus. Extraocular movements intact. NOSE: Patent, turbinates without inflammation or discharge. No sinus tenderness. MOUTH: Mucous membranes moist. Tonsils are not enlarged. Pharynx without erythema or exudate. Uvula midline. Airway patent. Tongue does not deviate. NECK: Supple without nuchal rigidity. No lymphadenopathy. Cervical spine is nontender. No JVD. HEART: Regular rate and rhythm without murmurs gallops or rubs. LUNGS: Clear to auscultation bilaterally without wheezes, rales or rhonchi. No retractions or accessory muscle use. ABDOMEN: Positive bowel sounds x 4. Soft, nontender, without masses or organomegaly. Bernal sign negative. No guarding or rebound tenderness. MUSCULOSKELETAL: No muscle atrophy, erythema, or edema noted. Full range of motion without joint tenderness in all extremities. No tenderness to palpation. Normal gait. Strength 5/5 throughout. NEURO: Patient was alert and oriented to person place and time. Normal sensation to light and sharp touch. Deep tendon reflexes 2+ throughout. No focal neurological deficits. An order was placed for continuous monitoring manager. The monitor showed a normal sinus rhythm at a ventricular rate of 62 bpm, per my interpretation. EKG was reviewed by myself and found to be Normal Sinus Rhythm at a rate of 60 beats per minute and per my interpretation reveals no ST elevation or depression, no T-wave inversion, and when compared to previous EKG of 11/21/2023 shows decrease in heart rate. Imaging as interpreted by myself and the radiologist revealed no acute findings, with radiologist interpretation as above. I agree with the radiologist's findings as based upon my independent interpretation. EMERGENCY DEPARTMENT COURSE: The patient was evaluated as above. Patient presents to the emergency department for generalized weakness. The patient has no focal symptoms. She states she was having difficulty putting on her socks because she was not feeling well tonight. She has been afebrile. She does report a decreased appetite and weight loss of about 20 pounds over the past few months. IV access was obtained, labs were drawn. Labs reviewed. Per my interpretation, no concerning leukocytosis or anemia. No thrombocytopenia. Creatinine elevated 1.28, BUN 41. Hepatic function and electrolytes without significant abnormality. Troponin is elevated at 24.8. Repeat troponin is 18.6. TSH 1.663. Urinalysis is concerning for infection with 4+ bacteria, leukocyte esterase, nitrites, and blood. Respiratory bio fire is negative. Patient was hydrated with IV fluids. I do recommend inpatient care given the patient's reports of weakness and the urinary tract infection. The patient is agreeable. I discussed the case with Dr. Parrish, [facility] physician. He did agree to evaluate the patient for admission. The patient was started on IV antibiotics. Please see hospitalist dictation regarding ongoing management and final disposition of this patient. Case was discussed with the attending physician. This visit is during a period of high volume and high acuity in the emergency department. I attest that I have personally reviewed the patient medication list. I attest that I have reviewed the patient's blood pressure and it was found to be elevated. Further management by hospitalist GCS: 15 In the evaluation and treatment of this patient the following differential diagnoses were entertained: Infection, dehydration, metabolic abnormality, hypo/hyperglycemia, electrolyte disturbance, anemia, hypoxia, cardiac sources, intracerebral event, toxicologic, neurologic, as well as other pathologies. The chart was completed utilizing [employer] Speech voice recognition software. Grammatical errors, random word insertions, pronoun errors, and incomplete sentences are an occasional consequence of this system due to software limitations, ambient noise, and hardware issues. Any formal questions or concerns about the content, text, or information contained within the body of this dictation should be directly addressed to the provider for clarification. Past Med/Surg History Problem List (Updated 02/02/25 @ 06:17 by Madhuri Gramajo PA-C) Weakness (Acute) Acute UTI (Acute) Localized swelling of both lower legs CHF exacerbation (Acute) Ambulatory dysfunction (Acute) Bilateral edema of lower extremity (Acute) Acute kidney injury superimposed on chronic kidney disease Hematoma (Acute) Anemia Leg pain Anticoagulated by anticoagulation treatment Hematoma Diabetic ulcer of right foot (Acute) Balance disorder Personal history of diabetic foot ulcer Diabetic peripheral neuropathy associated with type 2 diabetes mellitus Vitamin D deficiency Hyperlipidemia Hematuria Hyperkalemia (Acute) CKD (chronic kidney disease), stage III (Acute) HTN (hypertension) History of pulmonary embolism History of DVT (deep vein thrombosis) (Acute) Gout DM type 2 (diabetes mellitus, type 2) (Chronic) Medical History Hiatal hernia Peptic ulcer Postgastric surgery syndrome Endometrial cancer D&C in -1979 Age related osteoporosis Urinary tract infection Aortic stenosis Presence of IVC filter Hyperlipidemia Surgical History History of femoropopliteal bypass S/P VAN (total abdominal hysterectomy) History of cataract surgery S/P repair of paraesophageal hernia History of incisional hernia repair S/P AAA repair Family History Mother Hypertension Social History Smoking Status: Never smoker Second Hand Exposure: No; Do You Dip or Chew Tobacco: No; Hx Alcohol Use: No Hx Substance Use: No Preferred Language: Italian Communication Ability: Effective Visual Impairment: Limited Hearing Ability: Use of Hearing Aid Security Police Officer Required: No Beliefs That Will Affect Care: None marital status: Current Living Situation: Spouse Current Living Situation Comment: with current occupational status: retired and disabled How many Children do You have: 1 How many Children do You have Comment: Daughter is local, pt's and daughter able to assist with care as needed. Feels Safe at Home: Yes Diet: regular caffeine: Yes Assistive Devices: Walker and Wheelchair Allergies Allergies Allergy/AdvReac Type Severity Reaction Status Date / Time No Known Allergies Allergy Verified 02/02/25 00:03 Home Meds Home Medications Medication Instructions Recorded Confirmed triamcinolone acetonide 0.1 % 1 appln topical BID PRN Skin 04/20/19 02/02/25 topical cream Irritation ascorbic acid (vitamin C) 500 mg 500 mg PO DAILY 02/02/25 02/02/25 tablet (Vitamin C) atorvastatin 20 mg tablet 20 mg PO QAM 02/02/25 02/02/25 enoxaparin 60 mg/0.6 mL 50 mg subcut Q24H 02/02/25 02/02/25 subcutaneous syringe ferrous sulfate 325 mg (65 mg 325 mg PO BID 02/02/25 02/02/25 iron) tablet lidocaine 4 % topical patch 1 patch topical DAILY PRN LOWER 02/02/25 02/02/25 BACK PAIN olmesartan 5 mg tablet (Benicar) 5 mg PO DAILY 02/02/25 02/02/25 omega 4-cva-ghw-fish oil 1,000 mg 1 cap PO DAILY 02/02/25 02/02/25 (120 mg-180 mg) capsule (Fish Oil) Previous Rx's Medication Instructions Recorded alendronate 70 mg tablet 70 mg PO WK #4 tabs 11/25/23 allopurinol 100 mg tablet 100 mg PO DAILY #30 tabs 05/09/24 aspirin 81 mg tablet,delayed 81 mg PO DAILY #30 tabs 11/25/23 release cholecalciferol (vitamin D3) 50 2,000 units PO DAILY #30 tabs 11/25/23 mcg (2,000 unit) tablet colestipol 1 gram tablet 1 gm PO BID #60 tabs 11/25/23 dulaglutide 1.5 mg/0.5 mL 1.5 mg (0.5 mL) subcut WK #2 mL 11/25/23 subcutaneous pen injector (Trulicity) metformin 500 mg tablet,extended 500 mg PO BID #60 tabs 11/25/23 release 24 hr metoprolol tartrate 25 mg tablet 25 mg PO BID #60 tabs 11/25/23 pantoprazole 20 mg tablet,delayed 20 mg PO DAILY #30 tabs 11/25/23 release Results & Data (ED) Vital Signs Vital Signs - 24 hr 02/01/25 20:20 02/01/25 20:20 02/01/25 21:00 Temperature 36.7 C Temperature Source Oral Pulse Rate 66 63 Pulse Rate [Finger] Pulse Rate from SpO2 Sensor 64 Pulse Rhythm Regular Pulse Rhythm [Finger] Pulse Strength Normal Pulse Strength [Finger] Respiratory Rate 20 24 Respiratory Effort / Characteristics Non-Labored Respiratory Depth Normal Respiratory Pattern Regular Blood Pressure 162/88 H 156/94 H Blood Pressure [Right Arm] Blood Pressure Mean 112 114 Blood Pressure Mean [Right Arm] Blood Pressure Position Sitting Blood Pressure Position [Right Arm] Pulse Oximetry 100 100 Oxygen Delivery Method Room Air Room Air Sepsis Recent Fever Within 48 Hours No Sepsis New/Unexplained Change in Mental Status N/A Sepsis Action Taken by Nursing No Action Required 02/01/25 21:30 02/01/25 21:42 02/01/25 22:00 Temperature Temperature Source Pulse Rate 61 62 Pulse Rate [Finger] 64 Pulse Rate from SpO2 Sensor 62 Pulse Rhythm Regular Pulse Rhythm [Finger] Regular Pulse Strength Pulse Strength [Finger] Normal Respiratory Rate 17 20 20 Respiratory Effort / Characteristics Non-Labored Respiratory Depth Normal Respiratory Pattern Regular Blood Pressure 164/98 H Blood Pressure [Right Arm] 178/106 H Blood Pressure Mean 120 Blood Pressure Mean [Right Arm] 130 Blood Pressure Position Blood Pressure Position [Right Arm] Lying Pulse Oximetry 98 97 100 Oxygen Delivery Method Room Air Room Air Sepsis Recent Fever Within 48 Hours Sepsis New/Unexplained Change in Mental Status Sepsis Action Taken by Nursing Laboratory Data 02/01/25 20:45 02/01/25 20:45 Lab Results 02/01/25 02/01/25 02/01/25 Range/Units 20:45 23:05 23:30 WBC 8.52 (4.8-10.8) K/ul RBC 4.07 L (4.20-5.40) M/uL Hgb 12.8 (12.0-16.0) g/dl Hct 39.5 (37.0-47.0) % MCV 97.1 (80.0-100.0) fL MCH 31.4 (25.0-34.0) pg MCHC 32.4 (32.0-36.0) g/dL RDW Std Deviation 51.7 H (36.4-46.3) fL RDW Coeff of [place]ek[place] 14.5 (11.5-14.5) % Plt Count 263 (130-400) K/uL MPV 11.8 (9.4-12.4) fL Immature Gran % (Auto) 0.7 % Neut % (Auto) 89.7 % Lymph % (Auto) 5.3 % [place] % (Auto) 3.6 % Eos % (Auto) 0.1 % Baso % (Auto) 0.6 % Neut # (Auto) 7.64 H (1.40-6.50) K/uL Lymph # (Auto) 0.45 L (1.20-3.40) K/uL [place] # (Auto) 0.31 (0.11-0.59) K/uL Eos # (Auto) 0.01 (0.00-0.50) K/uL Baso # (Auto) 0.05 (0.00-0.20) K/uL Immature Gran # (Auto) 0.06 (0.01-0.20) K/uL PT 10.9 (9.0-12.0) Seconds INR 1.0 (0.9-1.1) Sodium 135 L (136-145) mmol/L Potassium 4.9 (3.5-5.1) mmol/L Chloride 103 (98-107) mmol/L Carbon Dioxide 22 (21-32) mmol/L Anion Gap 10 (3-11) BUN 41 H (6-23) mg/dl Creatinine 1.28 H (0.6-1.2) mg/dl Est Cr Clr Drug Dosing 25.3 ml/min eGFR 43.15 BUN/Creatinine Ratio 32.0 H (10-20) Glucose 149 H (70-99(Fasting)) mg/dl Calcium 9.6 (8.6-10.3) mg/dl Magnesium 1.6 L (1.7-2.4) mg/dl Total Bilirubin 1.2 H (0.2-1.0) mg/dl AST 15 (13-39) U/L ALT 8 (7-52) U/L Alkaline Phosphatase 61 (34-104) U/L Total Creatine Kinase 22 L (26-192) U/L Troponin I High Sens 24.8 H 18.6 H D (0-14) pg/ml Total Protein 6.5 (6.0-8.3) gm/dl Albumin 3.4 (3.4-5.0) gm/dl Globulin 3.1 (2.5-4.0) gm/dl Albumin/Globulin Ratio 1.1 (0.9-2) TSH 1.663 (0.300-4.500) uIu/ml Urine Color Yellow Urine Appearance Cloudy A (Clear) Urine pH 5.5 (4.5-7.5) Ur Specific [place] 1.014 (1.000-1.030) Urine Protein 2+ H (Negative) Urine Glucose (UA) Negative (Negative) Urine Ketones Trace H (Negative) Urine Blood 1+ H (Negative) Urine Nitrite Positive A (Negative) Urine Bilirubin Negative (Negative) Urine Urobilinogen Negative (Negative) Ur Leukocyte Esterase 3+ H (Negative) Urine WBC (Auto) >50 H (0-5) /hpf Urine RBC (Auto) 6-10 H (0-2) /hpf U Hyaline Cast (Auto) 3-5 H (0-2) /lpf U Epithel Cells (Auto) 3-5 H (0-2) /hpf Urine Bacteria (Auto) 4+ H (None Seen) Urine Comment Adenovirus (PCR) (NotDetected) B. pertussis DNA (PCR) (NotDetected) B.parapertussis DNA PCR (NotDetected) C. pneumoniae DNA (PCR) (NotDetected) Coronavirus OC43 (PCR) (NotDetected) Coronavirus HKU1 (PCR) (NotDetected) Coronavirus 229E (PCR) (NotDetected) SARS-CoV-2 (PCR) (NotDetected) Coronavirus NL63 (PCR) (NotDetected) Human Metapneumovir PCR (NotDetected) Influenza Type A (PCR) (NotDetected) Influenza Type B (PCR) (NotDetected) M. pneumoniae (PCR) (NotDetected) Parainfluenza 1 (PCR) (NotDetected) Parainfluenza 2 (PCR) (NotDetected) Parainfluenza 3 (PCR) (NotDetected) Parainfluenza 4 (PCR) (NotDetected) RSV (PCR) (NotDetected) Entero/Rhino (PCR) (NotDetected) 02/01/25 Range/Units Unknown WBC (4.8-10.8) K/ul RBC (4.20-5.40) M/uL Hgb (12.0-16.0) g/dl Hct (37.0-47.0) % MCV (80.0-100.0) fL MCH (25.0-34.0) pg MCHC (32.0-36.0) g/dL RDW Std Deviation (36.4-46.3) fL RDW Coeff of Beka (11.5-14.5) % Plt Count (130-400) K/uL MPV (9.4-12.4) fL Immature Gran % (Auto) % Neut % (Auto) % Lymph % (Auto) % [place] % (Auto) % Eos % (Auto) % Baso % (Auto) % Neut # (Auto) (1.40-6.50) K/uL Lymph # (Auto) (1.20-3.40) K/uL [place] # (Auto) (0.11-0.59) K/uL Eos # (Auto) (0.00-0.50) K/uL Baso # (Auto) (0.00-0.20) K/uL Immature Gran # (Auto) (0.01-0.20) K/uL PT (9.0-12.0) Seconds INR (0.9-1.1) Sodium (136-145) mmol/L Potassium (3.5-5.1) mmol/L Chloride (98-107) mmol/L Carbon Dioxide (21-32) mmol/L Anion Gap (3-11) BUN (6-23) mg/dl Creatinine (0.6-1.2) mg/dl Est Cr Clr Drug Dosing ml/min eGFR BUN/Creatinine Ratio (10-20) Glucose (70-99(Fasting)) mg/dl Calcium (8.6-10.3) mg/dl Magnesium (1.7-2.4) mg/dl Total Bilirubin (0.2-1.0) mg/dl AST (13-39) U/L ALT (7-52) U/L Alkaline Phosphatase (34-104) U/L Total Creatine Kinase (26-192) U/L Troponin I High Sens (0-14) pg/ml Total Protein (6.0-8.3) gm/dl Albumin (3.4-5.0) gm/dl Globulin (2.5-4.0) gm/dl Albumin/Globulin Ratio (0.9-2) TSH (0.300-4.500) uIu/ml Urine Color Urine Appearance (Clear) Urine pH (4.5-7.5) Ur Specific [place] (1.000-1.030) Urine Protein (Negative) Urine Glucose (UA) (Negative) Urine Ketones (Negative) Urine Blood (Negative) Urine Nitrite (Negative) Urine Bilirubin (Negative) Urine Urobilinogen (Negative) Ur Leukocyte Esterase (Negative) Urine WBC (Auto) (0-5) /hpf Urine RBC (Auto) (0-2) /hpf U Hyaline Cast (Auto) (0-2) /lpf U Epithel Cells (Auto) (0-2) /hpf Urine Bacteria (Auto) (None Seen) Urine Comment Adenovirus (PCR) Not Detected (NotDetected) B. pertussis DNA (PCR) Not Detected (NotDetected) B.parapertussis DNA PCR Not Detected (NotDetected) C. pneumoniae DNA (PCR) Not Detected (NotDetected) Coronavirus OC43 (PCR) Not Detected (NotDetected) Coronavirus HKU1 (PCR) Not Detected (NotDetected) Coronavirus 229E (PCR) Not Detected (NotDetected) SARS-CoV-2 (PCR) Not Detected (NotDetected) Coronavirus NL63 (PCR) Not Detected (NotDetected) Human Metapneumovir PCR Not Detected (NotDetected) Influenza Type A (PCR) Not Detected (NotDetected) Influenza Type B (PCR) Not Detected (NotDetected) M. pneumoniae (PCR) Not Detected (NotDetected) Parainfluenza 1 (PCR) Not Detected (NotDetected) Parainfluenza 2 (PCR) Not Detected (NotDetected) Parainfluenza 3 (PCR) Not Detected (NotDetected) Parainfluenza 4 (PCR) Not Detected (NotDetected) RSV (PCR) Not Detected (NotDetected) Entero/Rhino (PCR) Not Detected (NotDetected) Administered Medications Sodium Chloride (Nss) 1,000 mls @ 80 mls/hr IV .[id number] ABBIE Stop: 02/02/25 15:47 Last Admin: 02/02/25 03:47 Dose: 80 mls/hr Documented By: KAREN Discontinued Medications Sodium Chloride (Nss) 1,000 mls @ 999 mls/hr IV .[id number] ABBIE Stop: 02/01/25 23:15 Last Infusion: 02/02/25 01:17 Dose: Infused Documented By: Admin: 02/01/25 23:04 Dose: 999 mls/hr Documented By: LUZMARIA Magnesium Sulfate/Dextrose (Magnesium Sulfate / D5w) 1 gm in 100 mls @ 50 mls/hr IV Q2H ABBIE Stop: 02/02/25 05:29 Last Infusion: 02/02/25 05:48 Dose: Infused Documented By: Admin: 02/02/25 03:48 Dose: 50 mls/hr Documented By: Infusion: 02/02/25 03:48 Dose: Infused Documented By: Admin: 02/02/25 02:01 Dose: 50 mls/hr Documented By: YARELIS Ceftriaxone Sodium (Rocephin) 2,000 mg in 50 mls @ 100 mls/hr IV NOW STA Stop: 02/02/25 01:49 Last Infusion: 02/02/25 02:48 Dose: Infused Documented By: Admin: 02/02/25 02:06 Dose: 100 mls/hr Documented By: YARELIS Imaging Data Radiologist's Impression: Chest X-Ray 02/01/25 21:41 Exam(s): XR CXR 1 VIEW EXAM: XR Chest, 1 View CLINICAL HISTORY: Reason for exam: weakness. TECHNIQUE: Frontal view of the chest. COMPARISON: 11/21/23. FINDINGS: Lungs: No confluent consolidation or overt edema. Pleural space: No pleural effusion. No pneumothorax. Mediastinum: Unremarkable. Bones/joints: No acute fracture. Upper abdomen: IVC filter. IMPRESSION: No acute cardiopulmonary disease. Electronically signed by: Taz Garcia M.D. 02/01/25 22:39 PM Discharge Plan Visit Data Chief Complaint: Weakness Stated Complaint: weakness, leg pain ED Provider: Marcy Nielsen ED Midlevel Provider: Madhuri Gramajo Discharge Problem: Weakness, Acute UTI Patient Disposition: Admitted As Inpatient Condition: Good Discharge Instructions Interventions: ED Discharge Assessment Last Done: 02/02/25 02:48
[2025-02-01 22:16] LABS: Thyroid Stimulating Hormone 1.663 uIu/ml (0.300-4.500)
[2025-02-01 22:22] LABS: Creatine Kinase 22.0 U/L (26-192); Magnesium 1.6 mg/dl (1.7-2.4)
[2025-02-01 22:37] LABS: INR 1.0 (0.9-1.1); Prothrombin Time 10.9 Seconds (9.0-12.0)
--- NOTE | 2025-02-01 22:40 | XRay Report ---
Exam(s): XR CXR 1 VIEW EXAM: XR Chest, 1 View CLINICAL HISTORY: Reason for exam: weakness. TECHNIQUE: Frontal view of the chest. COMPARISON: 11/21/23. FINDINGS: Lungs: No confluent consolidation or overt edema. Pleural space: No pleural effusion. No pneumothorax. Mediastinum: Unremarkable. Bones/joints: No acute fracture. Upper abdomen: IVC filter. IMPRESSION: No acute cardiopulmonary disease. Electronically signed by: Taz Garcia M.D. 02/01/25 22:39 PM
[2025-02-01 22:42] LABS: Chlamydia pneumoniae PCR Not Detected (NotDetected); Coronavirus 229E PCR Not Detected (NotDetected); Coronavirus CoV-2 (COVID19)PCR Not Detected (NotDetected); Coronavirus HKU1 PCR Not Detected (NotDetected); Coronavirus NL63 PCR Not Detected (NotDetected); Coronavirus OC43PCR Not Detected (NotDetected); Human Metapneumovirus PCR Not Detected (NotDetected); Parainfluenza Virus 1 PCR Not Detected (NotDetected); Parainfluenza Virus 2 PCR Not Detected (NotDetected); Parainfluenza Virus 3 PCR Not Detected (NotDetected); Parainfluenza Virus 4 PCR Not Detected (NotDetected); Respiratory Syncytial VirusPCR Not Detected (NotDetected); Rhinovirus/Enterovirus PCR Not Detected (NotDetected)
[2025-02-01] MEDS: SODIUM CHLORIDE 0.9% 1,000 ML IV SCH (23:04)
[2025-02-02 00:01] LABS: Appearance Urine Cloudy (Clear); Bacteria Urine Automated 4+ (None Seen); Glucose Urine UA Negative (Negative); WBC Urine Automated >50 /hpf (0-5)
[2025-02-02] MEDS: MAGNESIUM SULFATE / D5W 1 GM/100 ML BAG IV SCH (02:01)
[2025-02-02] MEDS: cefTRIAXone SODIUM 2,000 MG/50 ML BAG IV STA (02:06)
[2025-02-02] MEDS ORDERED: GLUCOSE 40% GEL 15 GM TUBE PO PRN (03:18)
[2025-02-02] MEDS ORDERED: DEXTROSE 50% 50 ML SYRINGE IV PRN (03:18)
[2025-02-02] MEDS ORDERED: GLUCOSE 10 TAB/TUBE PO PRN (03:18)
[2025-02-02] MEDS ORDERED: GLUCAGON FOR INJ 1 MG VIAL SQ PRN (03:18)
--- NOTE | 2025-02-02 03:46 | History & Physical Report ---
Date of Service February 02, 2025 Assessment & Plan (1) Acute UTI: Plan: 79-year-old female with past med history significant for type 2 diabetes, CKD stage III, gout, hyperlipidemia, pancreatic cyst, congenital hiatus hernia, history of recurrent DVT, history of pulmonary embolism, primary hypercoagulable state, status post IVC filter, right bundle branch block, nonrheumatic arctic valve stenosis, hypertension, post gastric surgery syndrome, history of multiple gastric polyps, eczema, osteoporosis, who lives at home with her comes because of weakness. Patient says since about a week she is progressively getting weak. Today she was not able to put her socks on which prompted her to come to the ER. She also having some burning micturition since about a week. Also having urinary urgency. Denies any fevers. No abdominal pain. Constipated. Denies any chest pain or shortness of breath. No cough. No runny nose or sore throat. Hemodynamics are okay. Patient is wheelchair-bound at home. She can transfer herself from recliner to wheelchair. Patient also is losing weight lately. As per PCP notes in October because of weight loss there was a plan to hold Trulicity but patient is still taking Trulicity. Acute UTI Weakness possibly from UTI Empiric Rocephin Gentle fluids Will follow cultures History of recurrent DVT History of pulmonary embolism Hypercoagulable state Status post IVC filter Currently on prophylactic Lovenox Lovenox dose recently adjusted to to 50 mg every 24 hours per anticoagulation clinic Mild elevation of troponin abnormal ekg will follow serial troponin and echo if any concerns will consult cardiology CKD stage III Presented with creatinine 1.2 which is around baseline We will follow labs Wheelchair-bound History of recurrent falls Back pain Continue lidocaine patch Gout Allopurinol Chronic diastolic CHF Not on diuretics Will monitor Hypertension On metoprolol and Benicar Will monitor Diabetes Hold trulicity and metformin Sliding scale Will monitor Fall HbA1c levels GERD Protonix Ongoing weight loss There is a plan to hold trulicity by PCP Follow-up with PCP Hyperlipidemia On statin History of PVD s/p surgery On aspirin and statin History of endometrial cancer S/p surgery DVT prophylaxis On Lovenox Disposition Medical floor Full code. History of Present Illness Chief Complaint: Weakness Primary Care Provider: [place] 79-year-old female with past med history significant for type 2 diabetes, CKD stage III, gout, hyperlipidemia, pancreatic cyst, congenital hiatus hernia, history of recurrent DVT, history of pulmonary embolism, primary hypercoagulable state, status post IVC filter, right bundle branch block, nonrheumatic arctic valve stenosis, hypertension, post gastric surgery syndrome, history of multiple gastric polyps, eczema, osteoporosis, who lives at home with her comes because of weakness. Patient says since about a week she is progressively getting weak. Today she was not able to put her socks on which prompted her to come to the ER. She also having some burning micturition since about a week. Also having urinary urgency. Denies any fevers. No abdominal pain. Constipated. Denies any chest pain or shortness of breath. No cough. No runny nose or sore throat. Hemodynamics are okay. Patient is wheelchair-bound at home. She can transfer herself from recliner to wheelchair. Patient also is losing weight lately. As per PCP notes in October because of weight loss there was a plan to hold Trulicity but patient is still taking Trulicity. Past medical history. As mentioned above Past surgical history. Repair of abdominal aortic aneurysm in 2010. Colonoscopy with biopsy. Incision and drainage of complex postoperative wound infection. EGD. EGD with biopsy. EGD with endoscopic ultrasound. Laparoscopic Miguel fundoplication, left lower quadrant and abdominal incarcerated incisional hernia repair with Dura-Guard mesh. Esophagogastric fundoplasty. Negative pressure wound therapy. Removal of mesh of abdominal wall necrotizing soft tissue infection. Bilateral cataracts. Repair of paraesophageal hernia. Repair of recurrent incisional hernia. Revision of right ankle joint arthroplasty. Total abdominal hysterectomy with removal of tubes. Bypass graft with vein femoral popliteal. Social history. . No smoking. No alcohol use. No drug use. Family history. Maternal grandmother had diabetes. Maternal grandfather had hypertension. Peripheral vascular disease. Mother had hypertension. Allergies Allergy/AdvReac Type Severity Reaction Status Date / Time No Known Allergies Allergy Verified 02/02/25 00:03 Home Medications Medication Instructions Recorded Confirmed Type triamcinolone acetonide 0.1 % 1 appln topical BID PRN Skin 04/20/19 02/02/25 History topical cream Irritation alendronate 70 mg tablet 70 mg PO WK #4 tabs 11/25/23 02/02/25 Rx allopurinol 100 mg tablet 100 mg PO DAILY #30 tabs 11/25/23 02/02/25 Rx aspirin 81 mg tablet,delayed 81 mg PO DAILY #30 tabs 11/25/23 02/02/25 Rx release cholecalciferol (vitamin D3) 50 2,000 units PO DAILY #30 tabs 11/25/23 02/02/25 Rx mcg (2,000 unit) tablet colestipol 1 gram tablet 1 gm PO BID #60 tabs 11/25/23 02/02/25 Rx dulaglutide 1.5 mg/0.5 mL 1.5 mg (0.5 mL) subcut WK #2 mL 11/25/23 02/02/25 Rx subcutaneous pen injector (Trulicity) metformin 500 mg tablet,extended 500 mg PO BID #60 tabs 11/25/23 02/02/25 Rx release 24 hr metoprolol tartrate 25 mg tablet 25 mg PO BID #60 tabs 11/25/23 02/02/25 Rx pantoprazole 20 mg tablet,delayed 20 mg PO DAILY #30 tabs 11/25/23 02/02/25 Rx release ascorbic acid (vitamin C) 500 mg 500 mg PO DAILY 02/02/25 02/02/25 History tablet (Vitamin C) atorvastatin 20 mg tablet 20 mg PO QAM 02/02/25 02/02/25 History enoxaparin 60 mg/0.6 mL 50 mg subcut Q24H 02/02/25 02/02/25 History subcutaneous syringe ferrous sulfate 325 mg (65 mg 325 mg PO BID 02/02/25 02/02/25 History iron) tablet lidocaine 4 % topical patch 1 patch topical DAILY PRN LOWER 02/02/25 02/02/25 History BACK PAIN olmesartan 5 mg tablet (Benicar) 5 mg PO DAILY 02/02/25 02/02/25 History omega 1-fln-rcz-fish oil 1,000 mg 1 cap PO DAILY 02/02/25 02/02/25 History (120 mg-180 mg) capsule (Fish Oil) Past Med/Surg History Problem List (Updated 02/02/25 @ 06:17 by Madhuri Gramajo PA-C) Weakness (Acute) Acute UTI (Acute) Localized swelling of both lower legs CHF exacerbation (Acute) Ambulatory dysfunction (Acute) Bilateral edema of lower extremity (Acute) Acute kidney injury superimposed on chronic kidney disease Hematoma (Acute) Anemia Leg pain Anticoagulated by anticoagulation treatment Hematoma Diabetic ulcer of right foot (Acute) Balance disorder Personal history of diabetic foot ulcer Diabetic peripheral neuropathy associated with type 2 diabetes mellitus Vitamin D deficiency Hyperlipidemia Hematuria Hyperkalemia (Acute) CKD (chronic kidney disease), stage III (Acute) HTN (hypertension) History of pulmonary embolism History of DVT (deep vein thrombosis) (Acute) Gout DM type 2 (diabetes mellitus, type 2) (Chronic) Medical History Hiatal hernia Peptic ulcer Postgastric surgery syndrome Endometrial cancer D&C in Age related osteoporosis Urinary tract infection Aortic stenosis Presence of IVC filter Hyperlipidemia Surgical History History of femoropopliteal bypass S/P VAN (total abdominal hysterectomy) History of cataract surgery S/P repair of paraesophageal hernia History of incisional hernia repair S/P AAA repair Family History Mother Hypertension Social History Smoking Status: Never smoker Second Hand Exposure: No; Do You Dip or Chew Tobacco: No; Hx Alcohol Use: No Hx Substance Use: No Preferred Language: [place]i Communication Ability: Effective Visual Impairment: Limited Hearing Ability: Use of Hearing Aid Nursing Assistants Teacher Required: No Beliefs That Will Affect Care: None marital status: Current Living Situation: Spouse Current Living Situation Comment: with current occupational status: retired and disabled How many Children do You have: 1 How many Children do You have Comment: Daughter is local, pt's and daughter able to assist with care as needed. Feels Safe at Home: Yes Diet: regular caffeine: Yes Assistive Devices: Walker and Wheelchair Review of Systems Review of Systems: All systems reviewed & are unremarkable except as noted in HPI & below Physical Exam Physical Exam: General- Not in distress. hard of hearing Head- atraumatic Eyes- PERRL. ENT- oropharynx clear Neck- supple, no JVD. Lungs- clear to auscultation no wheezing or crackles Heart- regular rhythm; no murmur, no gallop. Abdomen- normal bowel sounds, soft, nontender, no distension Extremities- mild pretibial edema, no erythema seen. Neuro- alert, oriented PERRL, no facial palsy; no dysarthria; moves extremities Results & Data Results & Data Vital Signs (Past 12 Hours) Vital Signs Temp Pulse Pulse Resp BP BP Pulse Ox 02/01/25 22:00 64 20 178/106 H 100 02/01/25 21:42 62 20 97 02/01/25 21:30 61 17 164/98 H 98 02/01/25 21:00 63 24 156/94 H 100 02/01/25 20:20 02/01/25 20:20 36.7 C 66 20 162/88 H 100 O2 Del Method 02/01/25 22:00 Room Air 02/01/25 21:42 Room Air 02/01/25 21:30 02/01/25 21:00 02/01/25 20:20 Room Air 02/01/25 20:20 Room Air Diagnostic Findings Laboratory Results WBC 8.52 K/ul (4.8-10.8) 02/01/25 20:45 RBC 4.07 M/uL (4.20-5.40) L 02/01/25 20:45 Hgb 12.8 g/dl (12.0-16.0) 02/01/25 20:45 Hct 39.5 % (37.0-47.0) 02/01/25 20:45 MCV 97.1 fL (80.0-100.0) 02/01/25 20:45 MCH 31.4 pg (25.0-34.0) 02/01/25 20:45 MCHC 32.4 g/dL (32.0-36.0) 02/01/25 20:45 RDW Std Deviation 51.7 fL (36.4-46.3) H 02/01/25 20:45 RDW Coeff of [place] 14.5 % (11.5-14.5) 02/01/25 20:45 Plt Count 263 K/uL (130-400) 02/01/25 20:45 MPV 11.8 fL (9.4-12.4) 02/01/25 20:45 Immature Gran % (Auto) 0.7 % 02/01/25 20:45 Neut % (Auto) 89.7 % 02/01/25 20:45 Lymph % (Auto) 5.3 % 02/01/25 20:45 [place] % (Auto) 3.6 % 02/01/25 20:45 Eos % (Auto) 0.1 % 02/01/25 20:45 Baso % (Auto) 0.6 % 02/01/25 20:45 Neut # (Auto) 7.64 K/uL (1.40-6.50) H 02/01/25 20:45 Lymph # (Auto) 0.45 K/uL (1.20-3.40) L 02/01/25 20:45 [place] # (Auto) 0.31 K/uL (0.11-0.59) 02/01/25 20:45 Eos # (Auto) 0.01 K/uL (0.00-0.50) 02/01/25 20:45 Baso # (Auto) 0.05 K/uL (0.00-0.20) 02/01/25 20:45 Immature Gran # (Auto) 0.06 K/uL (0.01-0.20) 02/01/25 20:45 PT 10.9 Seconds (9.0-12.0) 02/01/25 20:45 INR 1.0 (0.9-1.1) 02/01/25 20:45 Sodium 135 mmol/L (136-145) L 02/01/25 20:45 Potassium 4.9 mmol/L (3.5-5.1) 02/01/25 20:45 Chloride 103 mmol/L (98-107) 02/01/25 20:45 Carbon Dioxide 22 mmol/L (21-32) 02/01/25 20:45 Anion Gap 10 (3-11) 02/01/25 20:45 BUN 41 mg/dl (6-23) H 02/01/25 20:45 Creatinine 1.28 mg/dl (0.6-1.2) H 02/01/25 20:45 Est Cr Clr Drug Dosing 25.3 ml/min 02/01/25 20:45 eGFR 43.15 02/01/25 20:45 BUN/Creatinine Ratio 32.0 (10-20) H 02/01/25 20:45 Glucose 149 mg/dl (70-99(Fasting)) H 02/01/25 20:45 Calcium 9.6 mg/dl (8.6-10.3) 02/01/25 20:45 Magnesium 1.6 mg/dl (1.7-2.4) L 02/01/25 20:45 Total Bilirubin 1.2 mg/dl (0.2-1.0) H 02/01/25 20:45 AST 15 U/L (13-39) 02/01/25 20:45 ALT 8 U/L (7-52) 02/01/25 20:45 Alkaline Phosphatase 61 U/L (34-104) 02/01/25 20:45 Total Creatine Kinase 22 U/L (26-192) L 02/01/25 20:45 Troponin I High Sens 18.6 pg/ml (0-14) H D 02/01/25 23:30 Total Protein 6.5 gm/dl (6.0-8.3) 02/01/25 20:45 Albumin 3.4 gm/dl (3.4-5.0) 02/01/25 20:45 Globulin 3.1 gm/dl (2.5-4.0) 02/01/25 20:45 Albumin/Globulin Ratio 1.1 (0.9-2) 02/01/25 20:45 TSH 1.663 uIu/ml (0.300-4.500) 02/01/25 20:45 Urine Color Yellow 02/01/25 23:05 Urine Appearance Cloudy (Clear) A 02/01/25 23:05 Urine pH 5.5 (4.5-7.5) 02/01/25 23:05 Ur Specific [place] 1.014 (1.000-1.030) 02/01/25 23:05 Urine Protein 2+ (Negative) H 02/01/25 23:05 Urine Glucose (UA) Negative (Negative) 02/01/25 23:05 Urine Ketones Trace (Negative) H 02/01/25 23:05 Urine Blood 1+ (Negative) H 02/01/25 23:05 Urine Nitrite Positive (Negative) A 02/01/25 23:05 Urine Bilirubin Negative (Negative) 02/01/25 23:05 Urine Urobilinogen Negative (Negative) 02/01/25 23:05 Ur Leukocyte Esterase 3+ (Negative) H 02/01/25 23:05 Urine WBC (Auto) >50 /hpf (0-5) H 02/01/25 23:05 Urine RBC (Auto) 6-10 /hpf (0-2) H 02/01/25 23:05 U Hyaline Cast (Auto) 3-5 /lpf (0-2) H 02/01/25 23:05 U Epithel Cells (Auto) 3-5 /hpf (0-2) H 02/01/25 23:05 Urine Bacteria (Auto) 4+ (None Seen) H 02/01/25 23:05 Urine Comment 02/01/25 23:05 Adenovirus (PCR) Not Detected (NotDetected) 02/01/25 Unknown B. pertussis DNA (PCR) Not Detected (NotDetected) 02/01/25 Unknown B.parapertussis DNA PCR Not Detected (NotDetected) 02/01/25 Unknown C. pneumoniae DNA (PCR) Not Detected (NotDetected) 02/01/25 Unknown Coronavirus OC43 (PCR) Not Detected (NotDetected) 02/01/25 Unknown Coronavirus HKU1 (PCR) Not Detected (NotDetected) 02/01/25 Unknown Coronavirus 229E (PCR) Not Detected (NotDetected) 02/01/25 Unknown SARS-CoV-2 (PCR) Not Detected (NotDetected) 02/01/25 Unknown Coronavirus NL63 (PCR) Not Detected (NotDetected) 02/01/25 Unknown Human Metapneumovir PCR Not Detected (NotDetected) 02/01/25 Unknown Influenza Type A (PCR) Not Detected (NotDetected) 02/01/25 Unknown Influenza Type B (PCR) Not Detected (NotDetected) 02/01/25 Unknown M. pneumoniae (PCR) Not Detected (NotDetected) 02/01/25 Unknown Parainfluenza 1 (PCR) Not Detected (NotDetected) 02/01/25 Unknown Parainfluenza 2 (PCR) Not Detected (NotDetected) 02/01/25 Unknown Parainfluenza 3 (PCR) Not Detected (NotDetected) 02/01/25 Unknown Parainfluenza 4 (PCR) Not Detected (NotDetected) 02/01/25 Unknown RSV (PCR) Not Detected (NotDetected) 02/01/25 Unknown Entero/Rhino (PCR) Not Detected (NotDetected) 02/01/25 Unknown Impressions Chest X-Ray 02/01/25 21:41 Exam(s): XR CXR 1 VIEW EXAM: XR Chest, 1 View CLINICAL HISTORY: Reason for exam: weakness. TECHNIQUE: Frontal view of the chest. COMPARISON: 11/21/23. FINDINGS: Lungs: No confluent consolidation or overt edema. Pleural space: No pleural effusion. No pneumothorax. Mediastinum: Unremarkable. Bones/joints: No acute fracture. Upper abdomen: IVC filter. IMPRESSION: No acute cardiopulmonary disease. Electronically signed by: Taz Garcia M.D. 02/01/25 22:39 PM ECG Additional Comments: ECG. Atrial fibrillation with rapid ventricular response rhythm with PVCs at a rate of 125. Left axis deviation. Code Status & VTE Plan VTE Prophylaxis Plan VTE Prophylaxis will be ordered: Yes
[2025-02-02] MEDS: SODIUM CHLORIDE 0.9% 1,000 ML IV SCH (03:47)
[2025-02-02 07:54] LABS: Hematocrit (blood only) 35.8 % (37.0-47.0); Hemoglobin 11.9 g/dl (12.0-16.0); Immature Granulocytes # (auto) 0.03 K/uL (0.01-0.20); Immature Granulocytes % (auto) 0.4 %; Mean Corpuscular Hemoglobin 32.0 pg (25.0-34.0); Mean Corpuscular Volume 96.2 fL (80.0-100.0); Platelet Count 240 K/uL (130-400); RDW Standard Deviation 49.9 fL (36.4-46.3); Red Blood Count 3.72 M/uL (4.20-5.40); White Blood Count 8.05 K/ul (4.8-10.8)
[2025-02-02 07:55] LABS: Anion Gap 7.0 (3-11); Blood Urea Nitrogen 38.0 mg/dl (6-23); Calcium 8.9 mg/dl (8.6-10.3); Carbon Dioxide 25.0 mmol/L (21-32); Chloride 105.0 mmol/L (98-107); Creatinine Clr Calc Pharmacy 30.3 ml/min; Glucose 136.0 mg/dl (70-99(Fasting)); Magnesium 2.3 mg/dl (1.7-2.4); Potassium 4.8 mmol/L (3.5-5.1); Sodium 137.0 mmol/L (136-145)
[2025-02-02] MEDS: ENOXAPARIN INJ 60 MG/0.6 ML SYR SQ SCH (08:23)
[2025-02-02] MEDS: CHOLECALCIFEROL 25 MCG (1000 UNITS) TAB PO SCH (08:25)
[2025-02-02] MEDS: FERROUS SULFATE 325 MG TAB PO SCH (08:25)
[2025-02-02] MEDS: ATORVASTATIN 20 MG TAB PO SCH (08:26)
[2025-02-02] MEDS: ASCORBIC ACID 500 MG TAB PO SCH (08:26)
[2025-02-02] MEDS: ASPIRIN 81 MG ECTAB PO SCH (08:26)
[2025-02-02] MEDS: LOSARTAN POTASSIUM 25 MG TAB PO SCH (08:26)
[2025-02-02] MEDS: INSULIN ASPART PER UNIT CHARGE SC SCH (08:33)
[2025-02-02] MEDS: POLYETHYLENE (MIRALAX) 17 GM PACK PO PRN (08:43)
[2025-02-02 09:09] LABS: Hemoglobin A1C 6.6 % (4.5-5.6)
[2025-02-02] MEDS: METOPROLOL TARTRATE 25 MG TAB PO SCH (10:01)
[2025-02-02] MEDS: COLESTIPOL HCL 1 GM TAB PO SCH (11:02)
--- NOTE | 2025-02-02 11:52 | XRay Report ---
XR foot LT 2V CLINICAL HISTORY: heel wound, r/o osteo COMPARISON: None FINDINGS: There are atherosclerotic calcifications. There is osteopenia. There is bandage artifact a t the heel. No evidence of osteomyelitis seen. No fracture or dislocation. IMPRESSION: No osteomyelitis seen. ACT 112: Negative or not required by law. Electronically signed by: Owen Bingham M.D. 02/02/2025 11:50 AM
--- NOTE | 2025-02-02 11:57 | Electrocardiogram Report ---
Test Reason : Blood Pressure : */* mmHG Vent. Rate : 125 BPM Atrial Rate : * BPM P-R Int : * ms QRS Dur : 50 ms QT Int : 126 ms P-R-T Axes : * -50 74 degrees QTcB Int : 181 ms Poor data quality, interpretation may be adversely affected Sinus rhythm Left axis deviation Low voltage QRS Inferior infarct , age undetermined Anterior infarct When compared with ECG of 21-Nov-2023 20:03, Significant changes have occurred Confirmed by Tho Shah ([id number]) on 02/02/2025 11:57:16 AM Referred By: REFERRED SELF Confirmed By: Tho Shah
--- NOTE | 2025-02-02 11:58 | Electrocardiogram Report ---
Test Reason : Blood Pressure : */* mmHG Vent. Rate : 118 BPM Atrial Rate : 118 BPM P-R Int : 80 ms QRS Dur : 8 ms QT Int : 224 ms P-R-T Axes : * 0 250 degrees QTcB Int : 313 ms Sinus tachycardia with 1st degree A-V block Indeterminate axis Inferior infarct Anterolateral infarct Abnormal ECG When compared with ECG of 01-Feb-2025 22:23, (unconfirmed) No significant change Confirmed by Tho Shah ([id number]) on 02/02/2025 11:58:27 AM Referred By: REFERRED SELF Confirmed By: Tho Shah
--- NOTE | 2025-02-02 12:17 | Cardiology Consultation ---
Date of Consultation February 02, 2025 Assessment & Plan (1) Hypertensive urgency: (2) Weakness: (3) Elevated troponin: (4) Aortic stenosis: (5) Sinus bradycardia: Plan Patient admitted for weakness, likely multifactorial with possible UTI (culture pending), weight loss, persistent nausea with early satiety and hypertensive urgency. Cardiology consulted for elevated troponin ranging 18-23. EKG demonstrating sinus bradycardia with incomplete RBBB, T wave inversions in anterior leads - similar to past tracings. She has had known RBBB for many years. EKG tracings are similar to outpatient EKG's. She has known mild to moderate per echo in April 2024. Repeat echo today demonstrating preserved LVEF with moderate/severe . Currently no symptoms to suggest ACS. Minimally elevated troponin likely due to hypertensive urgency. She is mildly bradycardic on telemetry. Recommendations: 1. Hold metoprolol given bradycardia 2. Increase losartan to 25 mg daily. 3. Monitor renal function and potassium with higher dose. Dose may be limited due to potassium levels. 4. Consider adding amlodipine if needed for additional antihypertensive therapy. 5. Continue ASA, statin 6. Continue Lovenox injections for history of PE/DVT 7. Recommend GI consult for nausea/early satiety and significant weight loss, inability to eat. 8. She will need cardio f/u to continue to monitor her aortic stenosis in the future. Case discussed with Dr. Segura. I spent a total of 60 minutes on the date of service in preparation, delivery, and documentation of the care provided to this patient, excluding any time spent in the performance of separately billed services. Abbey Higgins PA-C Department of Cardiology, [facility] This chart was completed in part utilizing Speech Voice Recognition Software. Grammatical errors, random word insertions, pronoun errors, and incomplete sentences are an occasional consequence of this system due to software limitations, ambient noise, and hardware issues. Any formal questions or concerns about the content, text, or information contained within the body of this dictation should be directly addressed to the provider for clarification. Supervising Physician Co-Signing Physician Notes I have personally performed a history and physical examination on the patient. I have reviewed the advance practitioner's documentation, and I agree with, and take responsibility for the plan of care. 79-year-old female presents to the emergency department with fatigue, weakness, some abdominal concerns. Possible urinary tract infection noted. Beta-charis placed on hold due to bradycardia. Patient denies lightheadedness, dizziness, syncope or near syncope. Echocardiogram demonstrated moderate to severe aortic valve stenosis with increase in aortic valve systolic gradient. Recommendations: * Repeat resting 2D transthoracic echocardiogram in 6 months for surveillance of moderate to severe aortic valve stenosis. * Hold metoprolol. * Consider restarting at reduced dose, 25 mg daily, pending review of telemetry. * Titrate losartan to 25 mg daily. * Continue aspirin, statin, and Lovenox injections as ordered. Marlo Segura DO, [facility] I spent a total of 30 minutes on the date of service in preparation, delivery, and documentation of the care provided to this patient, excluding any time spent in the performance of separately billed services. History of Present Illness Reason for Consultation: Minimally Elevated troponin; Abnormal EKG Requesting Physician: Ki Landis Attending Physician: Dr. Segura History of Present Illness Patient is a 79 year old female who presented to [facility] with progressive weakness and possible UTI symptoms. History includes: 1. history of PE/DVT/Hypercoagulable state - chronic anticoagulation with Lovenox 2. RBBB 3. history of stress induced cardiomyopathy in 2009, resolving - improved LVEF 4. Mild to moderate per last echo in 2023. Patient admitted to [facility] with complaints of weakness. Symptoms have been progressive for several months. She reports significant nausea with eating. She has lost 15-20 lbs over the last few months. She has a history of hiatal hernia repair many years ago. She denies chest pain or dyspnea. No orthopnea. She admits to chronic mild ankle edema. she does not ambulate frequently. Mostly sits in a recliner chair. Upon admission to [facility], she was found to be significantly hypertensive with BP ranging 160-180's. Cardio consulted due to minimally elevated troponin ranging 18-23. EKG demonstrating NSR with low voltage QRS, incomplete RBB with T wave inversions in anterior leads. When compared with prior outpatient EKG's, she has had a chronic RBBB or incomplete RBBB dating back many years with T wave inversions in anterior leads. At time of consult, patient denies acute cardiac complaints. Her primary concern is the "inability to eat" with persistent nausea and vomiting and weight loss. No chest pain, dyspnea. She has visible subconjunctival hemorrhage. She is uncertain when this occurred. She has not been checking BP at home. Urine culture and blood cultures are pending Allergies Allergy/AdvReac Type Severity Reaction Status Date / Time No Known Allergies Allergy Verified 02/02/25 00:03 Home Medications Medication Instructions Recorded Confirmed Type triamcinolone acetonide 0.1 % 1 appln topical BID PRN Skin 04/20/19 02/02/25 History topical cream Irritation alendronate 70 mg tablet 70 mg PO WK #4 tabs 11/25/23 02/02/25 Rx allopurinol 100 mg tablet 100 mg PO DAILY #30 tabs 11/25/23 02/02/25 Rx aspirin 81 mg tablet,delayed 81 mg PO DAILY #30 tabs 11/25/23 02/02/25 Rx release cholecalciferol (vitamin D3) 50 2,000 units PO DAILY #30 tabs 11/25/23 02/02/25 Rx mcg (2,000 unit) tablet colestipol 1 gram tablet 1 gm PO BID #60 tabs 11/25/23 02/02/25 Rx dulaglutide 1.5 mg/0.5 mL 1.5 mg (0.5 mL) subcut WK #2 mL 11/25/23 02/02/25 Rx subcutaneous pen injector (Trulicity) metformin 500 mg tablet,extended 500 mg PO BID #60 tabs 11/25/23 02/02/25 Rx release 24 hr metoprolol tartrate 25 mg tablet 25 mg PO BID #60 tabs 11/25/23 02/02/25 Rx pantoprazole 20 mg tablet,delayed 20 mg PO DAILY #30 tabs 11/25/23 02/02/25 Rx release ascorbic acid (vitamin C) 500 mg 500 mg PO DAILY 02/02/25 02/02/25 History tablet (Vitamin C) atorvastatin 20 mg tablet 20 mg PO QAM 02/02/25 02/02/25 History enoxaparin 60 mg/0.6 mL 50 mg subcut Q24H 02/02/25 02/02/25 History subcutaneous syringe ferrous sulfate 325 mg (65 mg 325 mg PO BID 02/02/25 02/02/25 History iron) tablet lidocaine 4 % topical patch 1 patch topical DAILY PRN LOWER 02/02/25 02/02/25 History BACK PAIN olmesartan 5 mg tablet (Benicar) 5 mg PO DAILY 02/02/25 02/02/25 History omega 8-vlr-[id number]-fish oil 1,000 mg 1 cap PO DAILY 02/02/25 02/02/25 History (120 mg-180 mg) capsule (Fish Oil) Patient History Medical History Hiatal hernia Peptic ulcer Postgastric surgery syndrome Endometrial cancer D&C in -1979 Age related osteoporosis Urinary tract infection Aortic stenosis Presence of IVC filter Hyperlipidemia Surgical History History of femoropopliteal bypass S/P VAN (total abdominal hysterectomy) History of cataract surgery S/P repair of paraesophageal hernia History of incisional hernia repair S/P AAA repair Family History Mother Hypertension Social History Smoking Status: Never smoker Second Hand Exposure: No; Do You Dip or Chew Tobacco: No; Hx Alcohol Use: No Hx Substance Use: No Preferred Language: Congolese Communication Ability: Effective Visual Impairment: Limited Hearing Ability: Use of Hearing Aid Play Reader Required: No Beliefs That Will Affect Care: None marital status: Current Living Situation: Spouse Current Living Situation Comment: with current occupational status: retired and disabled How many Children do You have: 1 How many Children do You have Comment: Daughter is local, pt's and daughter able to assist with care as needed. Feels Safe at Home: Yes Diet: regular caffeine: Yes Assistive Devices: Walker and Wheelchair Review of Systems Review of Systems: All systems reviewed & are unremarkable except as noted in HPI & below Physical Exam Constitutional: WD/WN, vitals as above + thin; no acute distress Eyes: +subconjunctival hemorrhage right eye Neck: normal visual inspection Respiratory: normal respiratory effort Auscultation: lungs clear to auscultation bilaterally; no crackles and no rales Cardiovascular: Rate/Rhythm: regular rate Heart Sounds: + murmur (III/ systolic murmur LSB) Vessels: no JVD Extremities: + edema (1+ ankle edema) Gastrointestinal (Abdomen): normal bowel sounds, soft, nontender, no hepatosplenomegaly Musculoskeletal: no cyanosis or clubbing, extremities motor strength 5/5 Neurologic: PERRL, EOMI, accommodation nl, no face palsy, no dysarthria Results & Data Vital Signs (Past 12 Hours) Vital Signs Temp Pulse Resp BP BP Pulse Ox O2 Del Method 02/02/25 10:37 35.4 C L 02/02/25 09:58 35.4 C L 02/02/25 09:30 58 L 173/87 H 99 Room Air 02/02/25 08:30 Room Air 02/02/25 08:29 52 L 18 182/94 H 95 Room Air 02/02/25 03:05 36.6 C 58 L 20 187/96 H 98 Room Air 02/02/25 02:48 Room Air Laboratory Results Cardiac Enzymes 02/01/25 02/01/25 02/02/25 Range/Units 20:45 23:30 07:23 AST 15 (13-39) U/L Troponin I High Sens 24.8 H 18.6 H D 23.1 H (0-14) pg/ml 02/02/25 Range/Units 13:13 AST (13-39) U/L Troponin I High Sens 19.5 H (0-14) pg/ml Coagulation 02/01/25 Range/Units 20:45 PT 10.9 (9.0-12.0) Seconds CBC 02/01/25 02/02/25 Range/Units 20:45 07:13 WBC 8.52 8.05 (4.8-10.8) K/ul RBC 4.07 L 3.72 L (4.20-5.40) M/uL Hgb 12.8 11.9 L (12.0-16.0) g/dl Hct 39.5 35.8 L (37.0-47.0) % Plt Count 263 240 (130-400) K/uL Neut # (Auto) 7.64 H 6.87 H (1.40-6.50) K/uL Lymph # (Auto) 0.45 L 0.74 L (1.20-3.40) K/uL [place] # (Auto) 0.31 0.36 (0.11-0.59) K/uL Eos # (Auto) 0.01 0.01 (0.00-0.50) K/uL Baso # (Auto) 0.05 0.04 (0.00-0.20) K/uL Comprehensive Metabolic Panel 02/01/25 02/02/25 Range/Units 20:45 06:25 Sodium 135 L 137 (136-145) mmol/L Potassium 4.9 4.8 (3.5-5.1) mmol/L Chloride 103 105 (98-107) mmol/L Carbon Dioxide 22 25 (21-32) mmol/L BUN 41 H 38 H (6-23) mg/dl Creatinine 1.28 H 1.07 (0.6-1.2) mg/dl Glucose 149 H 136 H (70-99(Fasting)) mg/dl Calcium 9.6 8.9 (8.6-10.3) mg/dl AST 15 (13-39) U/L ALT 8 (7-52) U/L Alkaline Phosphatase 61 (34-104) U/L Total Protein 6.5 (6.0-8.3) gm/dl Albumin 3.4 (3.4-5.0) gm/dl Intake and Output 02/01/25 02/02/25 02/02/25 22:59 06:59 14:59 Intake Total 1430 / 1430 Output Total 100 / 100 450 / 450 Balance 1330 / 1330 -450 / -450 Intake: IV 1250 / 1250 Magnesium Sulfate / D5w 1 gm In 200 / 200 100 ml @ 50 mls/hr IV Q2H ABBIE Rx#:[id number] Sodium Chloride 0.9% 1,000 ml @ 1000 / 1000 999 mls/hr IV .Q1H1M ABBIE Rx#: [id number] [id number] SODIUM 2,000 mg In 50 / 50 50 ml @ 100 mls/hr IV NOW STA Rx#:[id number] Oral 180 / 180 Output: Urine Amount (Catheter) 100 / 100 450 / 450 [place]/Indwelling 100 / 100 450 / 450 Other: Weight 43.6 kg 43.6 kg 43.6 kg Weight Measurement Method Built in Bedscale Standing Scale Patient Weight 02/03/25 06:59 Weight 43.6 kg Diagnostic Findings Telemetry reviewed: Sinus rhythm and sinus bradycardia ranging 40-70's Echo reviewed dated 02/02/25: LVEF 60-65% Moderate concentric LVH Aortic valve is moderately calcified Bicuspid aortic valve cannot be excluded Moderate to severe Mild MR Mild TR no pulm hypertension Compared with prior study, Aortic valve gradients have increased EKG reviewed upon admission: NSR with artifact LAD incomplete RBBB when compared with outpatient EKG's, no significant changes noted Repeat EKG NSR with incomplete RBBB No significant changes noted Chest xray reviewed from admission: IMPRESSION: No acute cardiopulmonary disease. Echo report reviewed from Apr 2024: Interpretation Summary The examination is adequate to evaluate the referral indication. The LV wall thickness is mildly increased (concentric). The left ventricular wall motion is normal. The qualitative LV ejection fraction is 55-59% (normal). The aortic valve is moderately calcified. Although mild aortic stenosis is suggested by the Doppler data, on 2D appearance, moderate aortic stenosis appears to be present. The aortic root and proximal ascending aorta are normal sized. Compared to the report of the previous study dated 11/07/2020, the severity of the aortic valve stenosis is relatively unchanged. Medications Administered Current Inpatient Medications Acetaminophen (Acetaminophen 325 Mg Tab) 650 mg PO Q4H PRN PRN Reason: pain/fever Stop: 03/04/25 03:17 Alendronate Sodium (Alendronate Sodium 70 Mg Tab) 70 mg PO We@0630 ABBIE Stop: 03/09/25 06:29 Allopurinol (Allopurinol 100 Mg Tab) 100 mg PO DAILY ABBIE Stop: 03/04/25 08:59 Last Admin: 02/02/25 08:25 Dose: 100 mg Ascorbic Acid (Ascorbic Acid 500 Mg Tab) 500 mg PO DAILY ABBIE Stop: 03/04/25 08:59 Last Admin: 02/02/25 08:26 Dose: 500 mg Aspirin (Aspirin 81 Mg Ectab) 81 mg PO DAILY ABBIE Stop: 03/04/25 08:59 Last Admin: 02/02/25 08:26 Dose: 81 mg Atorvastatin Calcium (Atorvastatin 20 Mg Tab) 20 mg PO QAM ABBIE Stop: 03/04/25 08:59 Last Admin: 02/02/25 08:26 Dose: 20 mg Colestipol HCl (Colestipol Hcl 1 Gm Tab) 1 gm PO BID@1000,2200 ABBIE Stop: 03/04/25 09:59 Last Admin: 02/02/25 11:02 Dose: Not Given Dextrose (Dextrose 50% 50 Ml Syringe) 25 - 50 ml IV UD PRN; Protocol PRN Reason: Hypoglycemia Protocol Stop: 03/04/25 03:17 Enoxaparin Sodium (Enoxaparin Inj 60 Mg/0.6 Ml Syr) 50 mg SQ Q24H [facility]; Protocol Stop: 03/04/25 06:59 Last Admin: 02/02/25 08:23 Dose: 50 mg Ferrous Sulfate (Ferrous Sulfate 325 Mg Tab) 325 mg PO BID [facility] Stop: 03/04/25 08:59 Last Admin: 02/02/25 08:25 Dose: 325 mg Glucagon (Glucagon For Inj 1 Mg Vial) 1 mg SQ UD PRN; Protocol PRN Reason: Hypoglycemia Protocol Stop: 03/04/25 03:17 Glucose (Glucose 40% Gel 15 Gm Tube) 15 - 30 gm PO UD PRN; Protocol PRN Reason: Hypoglycemia Protocol Stop: 03/04/25 03:17 Glucose (Glucose 10 Tab/Tube) 4 - 8 tab PO UD PRN; Protocol PRN Reason: Hypoglycemia Protocol Stop: 03/04/25 03:17 Sodium Chloride (Nss) 1,000 mls @ 80 mls/hr IV .[id number] [facility] Stop: 02/02/25 15:47 Last Admin: 02/02/25 03:47 Dose: 80 mls/hr Cefepime HCl (Maxipime 2000mg) 2,000 mg in 20 mls @ 5 mls/min IV Q12H [facility]; Protocol Stop: 02/04/25 11:59 Last Admin: 02/02/25 13:41 Dose: 5 mls/min Insulin Aspart (Insulin Aspart Per Unit Charge) 0 units SC ACHS [facility] Stop: 03/04/25 07:29 Last Admin: 02/02/25 13:41 Dose: 3 units Lidocaine (Lidocaine 5% 1 Patch) 1 patch TD DAILY PRN PRN Reason: LOWER BACK PAIN Stop: 03/04/25 04:00 Losartan Potassium (Losartan Potassium 25 Mg Tab) 25 mg PO DAILY [facility] Stop: 03/05/25 08:59 Metoprolol Tartrate (Metoprolol Tartrate 25 Mg Tab) 25 mg PO BID [facility] Stop: 03/04/25 08:59 Last Admin: 02/02/25 10:01 Dose: Not Given Miscellaneous (Carbohydrates For Hypoglycemia ) 15 - 30 gm PO UD PRN PRN Reason: Hypoglycemia Protocol Stop: 03/04/25 03:17 Miscellaneous (Remove Lidoderm Patch) 1 each N/A DAILY@2100 [facility] Stop: 03/04/25 20:59 Pantoprazole Sodium (Pantoprazole 40 Mg Tab) 40 mg PO DAILY [facility] Stop: 03/04/25 08:59 Last Admin: 02/02/25 08:26 Dose: 40 mg Polyethylene Glycol (Polyethylene (Miralax) 17 Gm Pack) 17 gm PO DAILY PRN PRN Reason: Constipation Stop: 03/04/25 03:17 Last Admin: 02/02/25 08:43 Dose: 17 gm Vitamin D (Cholecalciferol 25 Mcg (1000 Units) Tab) 50 mcg PO DAILY [facility] Stop: 03/04/25 08:59 Last Admin: 02/02/25 08:25 Dose: 50 mcg PG Care Time/CCT Total # of Minutes Spent Total Time Spent with Patient: Total time spent is greater than 50% in coordination of care (as documented) at patient's floor/unit and/or counseling patient: 60 Coding Level of Care Code 31297 INT INP/OBS CARE 3/75MIN Diagnoses Hypertensive urgency I16.0 Weakness R53.1 Elevated troponin R79.89 Nonrheumatic aortic valve stenosis I35.0 Cardiac valve disease etiology: nonrheumatic Sinus bradycardia R00.1 (4) Aortic stenosis Cardiac valve disease etiology: nonrheumatic Qualified Code(s): I35.0 - Nonrheumatic aortic (valve) stenosis
--- NOTE | 2025-02-02 12:41 | Podiatry Consultation ---
Date of Consultation February 02, 2025 Assessment & Plan (1) Bilateral edema of lower extremity: (2) Diabetic peripheral neuropathy associated with type 2 diabetes mellitus: (3) Diabetic ulcer of right foot: Diabetes mellitus type: type 2 Diabetic foot ulcer location: heel Non-pressure ulcer stage: limited to breakdown of skin Qualified Code(s): E11.621 - Type 2 diabetes mellitus with foot ulcer; L97.411 - Non-pressure chronic ulcer of right heel and midfoot limited to breakdown of skin (4) Chronic ulcer of right foot with fat layer exposed: Plan - Patient examined and evaluated. We discussed that this wound will take a while to heel and we should evaluate her vascular inflow while here inpatient. Arterial doppler exam for b/l LE ordered. Will help determine odds of healing the wound without further intervention. She will benefit from outpatient wound care when stable and discharged. We will continue to see her on a regular basis, as usual, when discharged as well. - Excisional wound debridement with scalpel at bedside. No necrotic, non-viable or infected tissue noted. Wound bed appears viable. - Dressed with Optifoam border gauze. Redress daily with similar. - Will follow; no further surgical intervention planned. - No need for continued hospitalization for the foot. Can be managed outpatient when stable otherwise. History of Present Illness Reason for Consultation: Right heel ulceration Attending Physician: Mario Campbell MD History of Present Illness Patient seen at bedside at lunch time. She is comfortable without pain to the right heel. She presented to the hospital with worsening weakness and noted to have this long standing right heel wound. She denies any specific concerns regarding it, including no recent changes to the wound, but it has been present for a month or so, she states. She was seen by our PA in our satellite office for nail and callus care in early December with no wound or preulcerative lesion noted. Now, she is eating well without signs or symptoms of local or systemic infection. Allergies Allergy/AdvReac Type Severity Reaction Status Date / Time No Known Allergies Allergy Verified 02/02/25 00:03 Home Medications Medication Instructions Recorded Confirmed Type triamcinolone acetonide 0.1 % 1 appln topical BID PRN Skin 04/20/19 02/02/25 History topical cream Irritation alendronate 70 mg tablet 70 mg PO WK #4 tabs 05/09/24 07/18/25 Rx allopurinol 100 mg tablet 100 mg PO DAILY #30 tabs 11/25/23 02/02/25 Rx aspirin 81 mg tablet,delayed 81 mg PO DAILY #30 tabs 11/25/23 02/02/25 Rx release cholecalciferol (vitamin D3) 50 2,000 units PO DAILY #30 tabs 11/25/23 02/02/25 Rx mcg (2,000 unit) tablet colestipol 1 gram tablet 1 gm PO BID #60 tabs 11/25/23 02/02/25 Rx dulaglutide 1.5 mg/0.5 mL 1.5 mg (0.5 mL) subcut WK #2 mL 11/25/23 02/02/25 Rx subcutaneous pen injector (Trulicity) metformin 500 mg tablet,extended 500 mg PO BID #60 tabs 11/25/23 02/02/25 Rx release 24 hr metoprolol tartrate 25 mg tablet 25 mg PO BID #60 tabs 11/25/23 02/02/25 Rx pantoprazole 20 mg tablet,delayed 20 mg PO DAILY #30 tabs 11/25/23 02/02/25 Rx release ascorbic acid (vitamin C) 500 mg 500 mg PO DAILY 02/02/25 02/02/25 History tablet (Vitamin C) atorvastatin 20 mg tablet 20 mg PO QAM 02/02/25 02/02/25 History enoxaparin 60 mg/0.6 mL 50 mg subcut Q24H 02/02/25 02/02/25 History subcutaneous syringe ferrous sulfate 325 mg (65 mg 325 mg PO BID 02/02/25 02/02/25 History iron) tablet lidocaine 4 % topical patch 1 patch topical DAILY PRN LOWER 02/02/25 02/02/25 History BACK PAIN olmesartan 5 mg tablet (Benicar) 5 mg PO DAILY 02/02/25 02/02/25 History omega 8-jws-vpu-fish oil 1,000 mg 1 cap PO DAILY 02/02/25 02/02/25 History (120 mg-180 mg) capsule (Fish Oil) Patient History Medical History Hiatal hernia Peptic ulcer Postgastric surgery syndrome Endometrial cancer D&C in -1979 Age related osteoporosis Urinary tract infection Aortic stenosis Presence of IVC filter Hyperlipidemia Surgical History History of femoropopliteal bypass S/P VNA (total abdominal hysterectomy) History of cataract surgery S/P repair of paraesophageal hernia History of incisional hernia repair S/P AAA repair Family History Mother Hypertension Social History Smoking Status: Never smoker Second Hand Exposure: No; Do You Dip or Chew Tobacco: No; Hx Alcohol Use: No Hx Substance Use: No Preferred Language: Uzbek Communication Ability: Effective Visual Impairment: Limited Hearing Ability: Use of Hearing Aid Biomedical Service Engineer Required: No Beliefs That Will Affect Care: None marital status: Current Living Situation: Spouse Current Living Situation Comment: with current occupational status: retired and disabled How many Children do You have: 1 How many Children do You have Comment: Daughter is local, pt's and daughter able to assist with care as needed. Feels Safe at Home: Yes Diet: regular caffeine: Yes Assistive Devices: Walker and Wheelchair Review of Systems 2 Review of Systems: All systems reviewed & are unremarkable except as noted in HPI & below Constitutional: no fever, no chills, no fatigue and no weakness Eyes: no problem reported Ear, Nose, Mouth, Throat: no problem reported Respiratory: no problem reported Cardiovascular: + edema; no problem reported Gastrointestinal: no nausea, no vomiting and no problem reported Genitourinary: no problem reported Musculoskeletal: no problem reported Integumentary: + skin ulcer, + wounds and + erythema Neurologic: + loss of sensation, + numbness and + pa resthesia; no generalized weakness Psychiatric: no problem reported Physical Exam Physical Exam: Lower extremity focused exam: DP pulses diminished, PT pulses nonpalpable. CFT brisk to the digits. B/L Lower extremity is cool to cold proximal to distal. Skin atrophic. Nails dystrophic. Well circumscribed 1 cm ulceration noted to plantar right heel. This is neuropathic in nature with a 100% granular base af ter sharp debridement. No deep probing noted; no extension to bone or tendons. No tunneling or undermining of wound margins. No purulence. Minimal bleeding on bedside debridement. Foot is rigidly pronated with rigid flatfoot deformity, longstanding and unchanged. No new suspicion of collapse. Constitutional: WD/WN, vitals as above + ill appearing and + thin Eyes: PERRL, conjunctivae normal, anicteric sclerae ENMT: external ear and nose normal, oropharynx normal Neck: trachea midline, no thyromegaly normal visual inspection Respiratory: normal respiratory effort; no respiratory distress Cardiovascular: Rate/Rhythm: regular rate and regular rhythm Vessels: + posterior tibial pulses abnormal and + dorsalis pedis pulses abnormal Chest (Breasts): Chest: normal inspection of chest Gastrointestinal (Abdomen): Inspection/Auscultation: abdomen normal to inspection Percussion/Palpation: + abdomen tender and abdomen soft Musculoskeletal: no cyanosis or clubbing, extremities motor strength 5/5 Head/Neck/Chest: normocephalic and head atraumatic Extremities: + abnormal strength, + abnormal muscle tone, + lower leg abnormality and + foot abnormality Ankle: + deformity; no skin erythema and no ecchymosis Skin: + turgor decreased, + ulcer, + skin atro phy, + nail abnormality and + nails dystrophic; no erythema and no eschar Neurologic: awake; + abnormal touch/pain/proprioception, + abnormal sensation to monofilament and no focal motor deficits Psychiatric: A+Ox3, euthymic affect Results & Data Vital Signs (Past 12 Hours) Vital Signs Temp Pulse Resp BP BP Pulse Ox O2 Del Method 02/02/25 10:37 35.4 C L 02/02/25 09:58 35.4 C L 02/02/25 09:30 58 L 173/87 H 99 Room Air 02/02/25 08:30 Room Air 02/02/25 08:29 52 L 18 182/94 H 95 Room Air 02/02/25 03:05 36.6 C 58 L 20 187/96 H 98 Room Air 02/02/25 02:48 Room Air
[2025-02-02] MEDS: LOSARTAN POTASSIUM 25 MG TAB PO ONE (13:30)
[2025-02-02] MEDS: CEFEPIME 2000MG 2,000 MG/20 ML SYR IV SCH (13:41)
--- NOTE | 2025-02-02 13:48 | XRay Report ---
RIGHT FOOT 2 VIEWS CLINICAL HISTORY: Heel wound. FINDINGS: AP and lateral views the right foot are obtained. Correlation is made with right ankle radi ographs dated 11/16/2012. The skeletal structures are heterogeneously osteopenic. There is postsurgical change from ankle and hindfoot fusion. The orthopedic hardware appears intact. No acute fracture is identified. There is chronic posttraumatic deformity of the third proximal phalanx and the fourth met atarsal. Osteoarthritic change is seen throughout the forefoot. There is soft tissue edema throughout the foot with evidence of a heel /ulceration. No bony erosion is seen to suggest osteomyelitis. There is advanced atherosclerotic calc ification of the regional arteries. IMPRESSION: 1. Diffuse soft tissue edema with no acute bony abnormality identified. 2. A heel ulcer/wound is noted. There is no clear radiographic evidence of osteomyelitis. 3. Osteopenia with postsurgical and degenerative change as above. Electronically signed by: Sunny Gaffney M.D. 02/02/2025 1:46 PM
[2025-02-02] MEDS: CARBOHYDRATES FOR HYPOGLYCEMIA PO PRN (17:20)
[2025-02-02] MEDS: REMOVE LIDODERM PATCH SCH (21:33)
[2025-02-02] MEDS ORDERED: cefTRIAXone SODIUM 2,000 MG/50 ML BAG IV SCH (22:30)
[2025-02-03] MEDS: ACETAMINOPHEN 325 MG TAB PO PRN (00:46)
--- NOTE | 2025-02-03 01:00 | Ultrasound Report ---
Exam(s): US VENOUS BILATERAL LOWER EXTREMITIES EXAM: US Duplex Bilateral Lower Extremities Veins CLINICAL HISTORY: Reason for exam: b/l edema. dvt. TECHNIQUE: Real-time duplex ultrasound scan of the bilateral lower extremity veins integrating B-mode two-dimensional vascular structure, Doppler spectral analysis, color flow Doppler imaging and compression. COMPARISON: No relevant prior studies available. FINDINGS: Right deep veins: Acute nonocclusive DVT proximal femoral vein. No DVT in the common femoral vein, mid or distal femoral vein, popliteal vein, or visualized calf veins; these veins demonstrate normal color flow signal and normal compressibility. Right superficial veins: No thrombus in the visualized right great saphenous vein. Left deep veins: Acute nonocclusive DVT in the common femoral, proximal middle and distal femoral, and popliteal veins. No DVT in the visualized calf veins which demonstrate normal color flow signal and normal compressibility. The peroneal vein is not visualized. DVT in the left common femoral, femoral, proximal deep femoral or popliteal veins. The veins demonstrate normal color flow, are normally compressible, with normal phasic flow and/or augmentation response. Left superficial veins: Left great saphenous vein is not evaluated. Soft tissues: No acute findings. IMPRESSION: 1. Acute nonocclusive DVT proximal right femoral vein. 2. Extensive acute nonocclusive DVT left common femoral vein, proximal, middle, and distal femoral vein, and popliteal vein. Communications: Verify Receipt with Nurse Electronically signed by: Maik Noriega M.D. 02/03/25 00:59 AM
[2025-02-03 02:51] LABS: Hematocrit (blood only) 33.1 % (37.0-47.0); Hemoglobin 10.5 g/dl (12.0-16.0); Mean Corpuscular Hemoglobin 30.9 pg (25.0-34.0); Mean Corpuscular Volume 97.4 fL (80.0-100.0); Platelet Count 227 K/uL (130-400); RDW Standard Deviation 51.0 fL (36.4-46.3); Red Blood Count 3.40 M/uL (4.20-5.40); White Blood Count 9.37 K/ul (4.8-10.8)
[2025-02-03] MEDS: HEPARIN 25000 UNIT/500 ML D5W 25,000 UNITS/500 ML BAG IV SCH (02:54)
[2025-02-03] MEDS: Heparin IV Adult Wt-Based Standard *NO* INITIAL Bolus Protocol IV STA (02:55)
[2025-02-03 03:02] LABS: INR 1.0 (0.9-1.1); Partial Thromboplastin Time 29 Seconds (21-31); Prothrombin Time 10.6 Seconds (9.0-12.0)
[2025-02-03 03:09] LABS: Immature Granulocytes # (auto) 0.07 K/uL (0.01-0.20); Immature Granulocytes % (auto) 0.7 %
--- NOTE | 2025-02-03 03:31 | Ultrasound Report ---
EXAM: US arterial duplex LE BI CLINICAL HISTORY: Heel wound. TECHNIQUE: Ultrasound examination of the bilateral lower extremities' arteries was performed in real time and duplex. One or more of the following were performed: spectral analysis, resistive index, waveform analysis, and pulsed Doppler. COMPARISON: None. FINDINGS: Vessel Flow Pattern Right Peak Velocity Right (cm/sec) Flow Pattern Left Peak Velocity Left (cm/sec) Common Femoral Artery (GAS METER INSTALLER) Triphasic 62.4 triphasic 26.3 Superficial Femoral Artery (SFA) Triphasic distally proximal: 80.9 Mid: 78.5 Distal: 46.7 - 6.8 Popliteal Artery (POP A) Biphasic 25.5 monophasic 13.8 Anterior tibial artery(ALEXANDER A) Biphasic mid: 27.2 Distal: 23.0 - prox/mid:7.7 distal: 12.4 Posterior Tibial Artery (BALER OPERATOR), proximal Biphasic 27.9 monophasic 9.6 Posterior Tibial Artery (BALER OPERATOR), distal Biphasic 44.1 monophaisc - Dorsalis Pedis Artery (DPA) Biphasic 24.1 monophasic 5.2 Mid peroneal Artery Biphasic 23.1 monophaisc - There is evidence of bilateral femoropopliteal grafting, which is patent on both sides. However, the [place] arteries on the left side are occluded and show biphasic and monophasic waveform patterns. Calcifications are identified in the arteries of both lower limbs. Additional Findings: Evidence of nonocclusive thrombus in both the femoral veins. Mild subcutaneous soft tissue edema in both lower limbs. IMPRESSION: 1. Evidence of bilateral femoropopliteal grafting, which is patent on both sides. However, the [place] arteries on the left side are occluded and show biphasic and monophasic waveform patterns. CT angiography is suggested for further evaluation. 2. Nonocclusive thrombus in both femoral veins. 3. However, correlation with prior imaging and surgical records is recommended. Electronically signed by Jeff Soto 02-03-2025 03:31 AM
[2025-02-03 05:49] LABS: Hematocrit (blood only) 30.6 % (37.0-47.0); Hemoglobin 10.4 g/dl (12.0-16.0); Mean Corpuscular Hemoglobin 32.4 pg (25.0-34.0); Mean Corpuscular Volume 95.3 fL (80.0-100.0); Platelet Count 235 K/uL (130-400); RDW Standard Deviation 48.9 fL (36.4-46.3); Red Blood Count 3.21 M/uL (4.20-5.40); White Blood Count 8.75 K/ul (4.8-10.8)
[2025-02-03 06:02] LABS: ANTI-Xa, UFH(UnfractionatedHep 1.00 IU/ml (0.3-0.7)
[2025-02-03 06:03] LABS: Anion Gap 6.0 (3-11); Blood Urea Nitrogen 46.0 mg/dl (6-23); Calcium 8.1 mg/dl (8.6-10.3); Carbon Dioxide 22.0 mmol/L (21-32); Chloride 109.0 mmol/L (98-107); Creatinine Clr Calc Pharmacy 28.4 ml/min; Glucose 116.0 mg/dl (70-99(Fasting)); Magnesium 1.9 mg/dl (1.7-2.4); Potassium 5.2 mmol/L (3.5-5.1); Sodium 137.0 mmol/L (136-145)
[2025-02-03 06:07] LABS: Immature Granulocytes # (auto) 0.04 K/uL (0.01-0.20); Immature Granulocytes % (auto) 0.5 %
[2025-02-03] MEDS: LOSARTAN POTASSIUM 25 MG TAB PO SCH (08:22)
[2025-02-03] MEDS: LIDOCAINE 5% 1 PATCH TD PRN (08:24)
[2025-02-03] MEDS: CEFEPIME 1000MG 1,000 MG/10 ML SYR IV SCH (12:49)
[2025-02-03 14:47] LABS: ANTI-Xa, UFH(UnfractionatedHep 1.12 IU/ml (0.3-0.7)
[2025-02-03 16:23] LABS: ANTI-Xa, UFH(UnfractionatedHep 0.87 IU/ml (0.3-0.7)
[2025-02-03] MEDS ORDERED: SODIUM PHOSPHATE 3 MMOL/1 ML INFUSION IV STA (17:22)
--- NOTE | 2025-02-03 17:34 | Hospitalist Progress Note ---
Date of Service February 03, 2025 Assessment & Plan (1) Acute UTI: Plan: 79-year-old female with past med history significant for type 2 diabetes, CKD stage III, gout, hyperlipidemia, pancreatic cyst, congenital hiatus hernia, history of recurrent DVT, history of pulmonary embolism, primary hypercoagulable state, status post IVC filter, right bundle branch block, nonrheumatic arctic valve stenosis, hypertension, post gastric surgery syndrome, history of multiple gastric polyps, eczema, osteoporosis, who lives at home with her comes because of weakness. Patient says since about a week she is progressively getting weak. Today she was not able to put her socks on which prompted her to come to the ER. She also having some burning micturition since about a week. Also having urinary urgency. Denies any fevers. No abdominal pain. Constipated. Denies any chest pain or shortness of breath. No cough. No runny nose or sore throat. Hemodynamics are okay. Patient is wheelchair-bound at home. She can transfer herself from recliner to wheelchair. Patient also is losing weight lately. As per PCP notes in October because of weight loss there was a plan to hold Trulicity but patient is still taking Trulicity. Acute UTI Weakness possibly from UTI Empiric Rocephin -> now on cefepime d/t foot wound Gentle fluids U cultx posit. for E.coli History of recurrent DVT History of pulmonary embolism Hypercoagulable state Status post IVC filter Was on prophylactic Lovenox Lovenox dose recently adjusted to to 50 mg every 24 hours per anticoagulation clinic Now found to have acute dvt - and on IV heparin Venous doppler- 1. Acute nonocclusive DVT proximal right femoral vein. 2. Extensive acute nonocclusive DVT left common femoral vein, proximal, middle, and distal femoral vein, and popliteal vein. Mild elevation of troponin abnormal ekg will follow serial troponin and echo Echo - LV EF 60-65%. There is moderate concentric LVH. Aortic valve is moderately calcified. Bicuspid aortic valve cannot be excluded. Moderate to severe valvular aortic stenosis. There is mild mitral regurg. Doppler findings do not suggest pulm. hypertension. Compared to study in 2023 aortic valve syst. gradient has increased. Cardiology consulted - Beta-charis placed on hold due to bradycardia. Echocardiogram demonstrated moderate to severe aortic valve stenosis with increase in aortic valve systolic gradient. Recommendations: * Repeat resting 2D transthoracic echocardiogram in 6 months for surveillance of moderate to severe aortic valve stenosis. * Hold metoprolol. * Consider restarting at reduced dose, 25 mg daily, pending review of telemetry. * Titrate losartan to 25 mg daily. * Continue aspirin, statin, and Lovenox injections as ordered. Heel wound XR of foot negative for osteo Wound Cultx posit. for Pseudomonas, Serratia - pt abx changed to cefepime yesterday wound care and podiatry consulted Per podiatry - - Patient examined and evaluated. We discussed that this wound will take a while to heel and we should evaluate her vascular inflow while here inpatient. Arterial doppler exam for b/l LE ordered. Will help determine odds of healing the wound without further intervention. She will benefit from outpatient wound care when stable and discharged. We will continue to see her on a regular basis, as usual, when discharged as well. - Excisional wound debridement with scalpel at bedside. No necrotic, non-viable or infected tissue noted. Wound bed appears viable. - Dressed with Optifoam border gauze. Redress daily with similar. - Will follow; no further surgical intervention planned. - No need for continued hospitalization for the foot. Can be managed outpatient when stable otherwise. Arterial doppler- 1. Evidence of bilateral femoropopliteal grafting, which is patent on both sides. However, the [place] arteries on the left side are occluded and show biphasic and monophasic waveform patterns. CT angiography is suggested for further evaluation. 2. Nonocclusive thrombus in both femoral veins. 3. However, correlation with prior imaging and surgical records is recommended. CKD stage III Presented with creatinine 1.2 which is around baseline We will follow labs Wheelchair-bound History of recurrent falls Back pain Continue lidocaine patch Gout Allopurinol Chronic diastolic CHF Not on diuretics Will monitor Hypertension On metoprolol and Benicar, metoprolol on hold as above Will monitor Diabetes Hold trulicity and metformin Sliding scale Will monitor Current HbA1c level 6.6% GERD Protonix Ongoing weight loss There is a plan to hold trulicity by PCP Follow-up with PCP Hyperlipidemia On statin History of PVD s/p surgery On aspirin and statin History of endometrial cancer S/p surgery DVT prophylaxis On Lovenox -> now on IV heparin Dispo med/tele Full code. Admission and Anticipated Discharge Date Admission Date: February 02, 2025 Subjective Pt seen in follow up of weakness initially admitted for UTI, but also found to have wound on her heel. Podiatry consulted. Further work up also positive for DVT. Pt is currently lying down in bed in NAD, she says she feels well but is constipated. She just had a BM but feels she needs to go more and that she did not have BM at home for a while. Denies fever, chills, chest pain, shortness of breath Review of Systems Review of Systems: All systems reviewed & are unremarkable except as noted in Subjective Physical Exam Physical Exam: General- elderly F in NAD, Not in distress. hard of hearing Head- atraumatic Eyes- PERRL. Neck- supple, no JVD. Lungs- clear to auscultation no wheezing Heart- regular rhythm Abdomen- normal bowel sounds, soft, nontender, no distension Extremities- mild pretibial edema, no erythema seen. + small wound on heel of R foot Neuro- alert, oriented PERRL, no facial palsy; no dysarthria; moves extremities Results & Data Results & Data Vital Signs (Past 12 Hours) Vital Signs Temp Pulse Pulse Resp BP Pulse Ox O2 Del Method 02/03/25 16:34 64 02/03/25 16:10 36.5 C 66 17 128/80 98 Room Air 02/03/25 11:32 36.3 C L 56 L 17 122/77 99 Room Air 02/03/25 09:27 62 02/03/25 08:12 36.7 C 64 17 123/74 97 Room Air 02/03/25 07:31 Room Air Laboratory Results 02/03/25 02/03/25 02/03/25 Range/Units 16:58 16:10 14:15 WBC (4.8-10.8) K/ul RBC (4.20-5.40) M/uL Hgb (12.0-16.0) g/dl Hct (37.0-47.0) % MCV (80.0-100.0) fL MCH (25.0-34.0) pg MCHC (32.0-36.0) g/dL RDW Std Deviation (36.4-46.3) fL RDW Coeff of Bek[place] (11.5-14.5) % Plt Count (130-400) K/uL MPV (9.4-12.4) fL Immature Gran % (Auto) % Neut % (Auto) % Lymph % (Auto) % Andrew % (Auto) % Eos % (Auto) % Baso % (Auto) % Neut # (Auto) (1.40-6.50) K/uL Lymph # (Auto) (1.20-3.40) K/uL Andrew # (Auto) (0.11-0.59) K/uL Eos # (Auto) (0.00-0.50) K/uL Baso # (Auto) (0.00-0.20) K/uL Immature Gran # (Auto) (0.01-0.20) K/uL Echinocytes PT (9.0-12.0) Seconds INR (0.9-1.1) APTT (21-31) Seconds PTT Ratio Heparin Anti-Xa, Unfract 0.87 H* 1.12 H* (0.3-0.7) IU/ml Sodium (136-145) mmol/L Potassium (3.5-5.1) mmol/L Chloride (98-107) mmol/L Carbon Dioxide (21-32) mmol/L Anion Gap (3-11) BUN (6-23) mg/dl Creatinine (0.6-1.2) mg/dl Est Cr Clr Drug Dosing ml/min eGFR BUN/Creatinine Ratio (10-20) Glucose (70-99(Fasting)) mg/dl POC Glucose 90 (70-99) mg/dl Calcium (8.6-10.3) mg/dl Phosphorus (2.5-4.9) mg/dl Magnesium (1.7-2.4) mg/dl Troponin I High Sens (0-14) pg/ml 02/03/25 02/03/25 02/03/25 Range/Units 11:54 07:43 05:33 WBC 8.75 (4.8-10.8) K/ul RBC 3.21 L (4.20-5.40) M/uL Hgb 10.4 L (12.0-16.0) g/dl Hct 30.6 L (37.0-47.0) % MCV 95.3 (80.0-100.0) fL MCH 32.4 (25.0-34.0) pg MCHC 34.0 (32.0-36.0) g/dL RDW Std Deviation 48.9 H (36.4-46.3) fL RDW Coeff of Beka 13.9 (11.5-14.5) % Plt Count 235 (130-400) K/uL MPV 11.2 (9.4-12.4) fL Immature Gran % (Auto) 0.5 % Neut % (Auto) 90.3 % Lymph % (Auto) 4.6 % Andrew % (Auto) 4.3 % Eos % (Auto) 0.1 % Baso % (Auto) 0.2 % Neut # (Auto) 7.90 H (1.40-6.50) K/uL Lymph # (Auto) 0.40 L (1.20-3.40) K/uL Andrew # (Auto) 0.38 (0.11-0.59) K/uL Eos # (Auto) 0.01 (0.00-0.50) K/uL Baso # (Auto) 0.02 (0.00-0.20) K/uL Immature Gran # (Auto) 0.04 (0.01-0.20) K/uL Echinocytes 1+ PT (9.0-12.0) Seconds INR (0.9-1.1) APTT (21-31) Seconds PTT Ratio Heparin Anti-Xa, Unfract 1.00 H* (0.3-0.7) IU/ml Sodium 137 (136-145) mmol/L Potassium 5.2 H (3.5-5.1) mmol/L Chloride 109 H (98-107) mmol/L Carbon Dioxide 22 (21-32) mmol/L Anion Gap 6 (3-11) BUN 46 H (6-23) mg/dl Creatinine 1.14 (0.6-1.2) mg/dl Est Cr Clr Drug Dosing 28.4 ml/min eGFR 49.58 BUN/Creatinine Ratio 40.4 H (10-20) Glucose 116 H (70-99(Fasting)) mg/dl POC Glucose 179 H 137 H (70-99) mg/dl Calcium 8.1 L (8.6-10.3) mg/dl Phosphorus 2.2 L (2.5-4.9) mg/dl Magnesium 1.9 (1.7-2.4) mg/dl Troponin I High Sens (0-14) pg/ml 02/03/25 02/03/25 02/03/25 Range/Units 02:32 01:35 01:14 WBC 9.37 (4.8-10.8) K/ul RBC 3.40 L (4.20-5.40) M/uL Hgb 10.5 L (12.0-16.0) g/dl Hct 33.1 L (37.0-47.0) % MCV 97.4 (80.0-100.0) fL MCH 30.9 (25.0-34.0) pg MCHC 31.7 L (32.0-36.0) g/dL RDW Std Deviation 51.0 H (36.4-46.3) fL RDW Coeff of Beka 14.3 (11.5-14.5) % Plt Count 227 (130-400) K/uL MPV 10.9 (9.4-12.4) fL Immature Gran % (Auto) 0.7 % Neut % (Auto) 90.6 % Lymph % (Auto) 3.6 % Andrew % (Auto) 4.7 % Eos % (Auto) 0.1 % Baso % (Auto) 0.3 % Neut # (Auto) 8.48 H (1.40-6.50) K/uL Lymph # (Auto) 0.34 L (1.20-3.40) K/uL Andrew # (Auto) 0.44 (0.11-0.59) K/uL Eos # (Auto) 0.01 (0.00-0.50) K/uL Baso # (Auto) 0.03 (0.00-0.20) K/uL Immature Gran # (Auto) 0.07 (0.01-0.20) K/uL Echinocytes 1+ PT 10.6 (9.0-12.0) Seconds INR 1.0 (0.9-1.1) APTT 29 (21-31) Seconds PTT Ratio 1.1 Heparin Anti-Xa, Unfract (0.3-0.7) IU/ml Sodium (136-145) mmol/L Potassium (3.5-5.1) mmol/L Chloride (98-107) mmol/L Carbon Dioxide (21-32) mmol/L Anion Gap (3-11) BUN (6-23) mg/dl Creatinine (0.6-1.2) mg/dl Est Cr Clr Drug Dosing ml/min eGFR BUN/Creatinine Ratio (10-20) Glucose 80 (70-99(Fasting)) mg/dl POC Glucose 47 L* (70-99) mg/dl Calcium (8.6-10.3) mg/dl Phosphorus (2.5-4.9) mg/dl Magnesium (1.7-2.4) mg/dl Troponin I High Sens (0-14) pg/ml 02/03/25 02/03/25 02/02/25 Range/Units 00:51 00:49 20:46 WBC (4.8-10.8) K/ul RBC (4.20-5.40) M/uL Hgb (12.0-16.0) g/dl Hct (37.0-47.0) % MCV (80.0-100.0) fL MCH (25.0-34.0) pg MCHC (32.0-36.0) g/dL RDW Std Deviation (36.4-46.3) fL RDW Coeff of Beka (11.5-14.5) % Plt Count (130-400) K/uL MPV (9.4-12.4) fL Immature Gran % (Auto) % Neut % (Auto) % Lymph % (Auto) % Andrew % (Auto) % Eos % (Auto) % Baso % (Auto) % Neut # (Auto) (1.40-6.50) K/uL Lymph # (Auto) (1.20-3.40) K/uL Andrew # (Auto) (0.11-0.59) K/uL Eos # (Auto) (0.00-0.50) K/uL Baso # (Auto) (0.00-0.20) K/uL Immature Gran # (Auto) (0.01-0.20) K/uL Echinocytes PT (9.0-12.0) Seconds INR (0.9-1.1) APTT (21-31) Seconds PTT Ratio Heparin Anti-Xa, Unfract (0.3-0.7) IU/ml Sodium (136-145) mmol/L Potassium (3.5-5.1) mmol/L Chloride (98-107) mmol/L Carbon Dioxide (21-32) mmol/L Anion Gap (3-11) BUN (6-23) mg/dl Creatinine (0.6-1.2) mg/dl Est Cr Clr Drug Dosing ml/min eGFR BUN/Creatinine Ratio (10-20) Glucose (70-99(Fasting)) mg/dl POC Glucose 43 L* 43 L* 249 H (70-99) mg/dl Calcium (8.6-10.3) mg/dl Phosphorus (2.5-4.9) mg/dl Magnesium (1.7-2.4) mg/dl Troponin I High Sens (0-14) pg/ml 02/02/25 Range/Units 19:21 WBC (4.8-10.8) K/ul RBC (4.20-5.40) M/uL Hgb (12.0-16.0) g/dl Hct (37.0-47.0) % MCV (80.0-100.0) fL MCH (25.0-34.0) pg MCHC (32.0-36.0) g/dL RDW Std Deviation (36.4-46.3) fL RDW Coeff of Beka (11.5-14.5) % Plt Count (130-400) K/uL MPV (9.4-12.4) fL Immature Gran % (Auto) % Neut % (Auto) % Lymph % (Auto) % Andrew % (Auto) % Eos % (Auto) % Baso % (Auto) % Neut # (Auto) (1.40-6.50) K/uL Lymph # (Auto) (1.20-3.40) K/uL Andrew # (Auto) (0.11-0.59) K/uL Eos # (Auto) (0.00-0.50) K/uL Baso # (Auto) (0.00-0.20) K/uL Immature Gran # (Auto) (0.01-0.20) K/uL Echinocytes PT (9.0-12.0) Seconds INR (0.9-1.1) APTT (21-31) Seconds PTT Ratio Heparin Anti-Xa, Unfract (0.3-0.7) IU/ml Sodium (136-145) mmol/L Potassium (3.5-5.1) mmol/L Chloride (98-107) mmol/L Carbon Dioxide (21-32) mmol/L Anion Gap (3-11) BUN (6-23) mg/dl Creatinine (0.6-1.2) mg/dl Est Cr Clr Drug Dosing ml/min eGFR BUN/Creatinine Ratio (10-20) Glucose (70-99(Fasting)) mg/dl POC Glucose (70-99) mg/dl Calcium (8.6-10.3) mg/dl Phosphorus (2.5-4.9) mg/dl Magnesium (1.7-2.4) mg/dl Troponin I High Sens 19.7 H (0-14) pg/ml Medications Administered Current Inpatient Medications Acetaminophen (Acetaminophen 325 Mg Tab) 650 mg PO Q4H PRN PRN Reason: pain/fever Stop: 03/04/25 03:17 Last Admin: 02/03/25 00:46 Dose: 650 mg Alendronate Sodium (Alendronate Sodium 70 Mg Tab) 70 mg PO We@0630 [facility] Stop: 03/09/25 06:29 Allopurinol (Allopurinol 100 Mg Tab) 100 mg PO DAILY [facility]BIE Stop: 03/04/25 08:59 Last Admin: 02/03/25 08:22 Dose: 100 mg Ascorbic Acid (Ascorbic Acid 500 Mg Tab) 500 mg PO DAILY ABBIE Stop: 03/04/25 08:59 Last Admin: 02/03/25 08:23 Dose: 500 mg Aspirin (Aspirin 81 Mg Ectab) 81 mg PO DAILY ABBIE Stop: 03/04/25 08:59 Last Admin: 02/03/25 08:22 Dose: 81 mg Atorvastatin Calcium (Atorvastatin 20 Mg Tab) 20 mg PO QAM [facility] Stop: 03/04/25 08:59 Last Admin: 02/03/25 08:23 Dose: 20 mg Colestipol HCl (Colestipol Hcl 1 Gm Tab) 1 gm PO BID@1000,2200 [facility] Stop: 03/04/25 09:59 Last Admin: 02/03/25 10:41 Dose: 1 gm Dextrose (Dextrose 50% 50 Ml Syringe) 25 - 50 ml IV UD PRN; Protocol PRN Reason: Hypoglycemia Protocol Stop: 03/04/25 03:17 Enoxaparin Sodium (Enoxaparin Inj 60 Mg/0.6 Ml Syr) 50 mg SQ Q24H [facility]; Protocol Stop: 03/04/25 06:59 Last Admin: 02/02/25 08:23 Dose: 50 mg Ferrous Sulfate (Ferrous Sulfate 325 Mg Tab) 325 mg PO BID [facility]BIE Stop: 03/04/25 08:59 Last Admin: 02/03/25 08:22 Dose: 325 mg Glucagon (Glucagon For Inj 1 Mg Vial) 1 mg SQ UD PRN; Protocol PRN Reason: Hypoglycemia Protocol Stop: 03/04/25 03:17 Glucose (Glucose 40% Gel 15 Gm Tube) 15 - 30 gm PO UD PRN; Protocol PRN Reason: Hypoglycemia Protocol Stop: 03/04/25 03:17 Glucose (Glucose 10 Tab/Tube) 4 - 8 tab PO UD PRN; Protocol PRN Reason: Hypoglycemia Protocol Stop: 03/04/25 03:17 Heparin Sodium/Dextrose (Heparin 73850 Unit/500 Ml D5w) 25,000 units in 500 mls @ 0 mls/hr IV .Q0M [facility]; Protocol Stop: 03/05/25 02:14 Last Titration: 02/03/25 15:00 Dose: 0 units/hr, 0 mls/hr Cefepime HCl (Maxipime 2000mg) 1,000 mg in 10 mls @ 5 mls/min IV Q12H [facility] Stop: 02/04/25 11:59 Last Admin: 02/03/25 12:49 Dose: 5 mls/min Sodium Phosphate 6 mmol/ (Sodium Chloride) 252 mls @ 252 mls/hr IV ONE ONE Stop: 02/03/25 18:59 Insulin Aspart (Insulin Aspart Per Unit Charge) 0 units SC ACHS [facility]BIE Stop: 03/04/25 07:29 Last Admin: 02/03/25 17:48 Dose: Not Given Lidocaine (Lidocaine 5% 1 Patch) 1 patch TD DAILY PRN PRN Reason: LOWER BACK PAIN Stop: 03/04/25 04:00 Last Admin: 02/03/25 08:24 Dose: 1 patch Losartan Potassium (Losartan Potassium 25 Mg Tab) 25 mg PO DAILY ABBIE Stop: 03/05/25 08:59 Last Admin: 02/03/25 08:22 Dose: 25 mg Metoprolol Tartrate (Metoprolol Tartrate 25 Mg Tab) 25 mg PO BID [facility] Stop: 03/04/25 08:59 Last Admin: 02/02/25 10:01 Dose: Not Given Miscellaneous (Carbohydrates For Hypoglycemia ) 15 - 30 gm PO UD PRN PRN Reason: Hypoglycemia Protocol Stop: 03/04/25 03:17 Last Admin: 02/02/25 17:20 Dose: 15 gm Miscellaneous (Remove Lidoderm Patch) 1 each N/A DAILY@2100 [facility] Stop: 03/04/25 20:59 Last Admin: 02/02/25 21:33 Dose: Not Given Pantoprazole Sodium (Pantoprazole 40 Mg Tab) 40 mg PO DAILY ABBIE Stop: 03/04/25 08:59 Last Admin: 02/03/25 08:22 Dose: 40 mg Polyethylene Glycol (Polyethylene (Miralax) 17 Gm Pack) 17 gm PO DAILY PRN PRN Reason: Constipation Stop: 03/04/25 03:17 Last Admin: 02/02/25 08:43 Dose: 17 gm Vitamin D (Cholecalciferol 25 Mcg (1000 Units) Tab) 50 mcg PO DAILY ABBIE Stop: 03/04/25 08:59 Last Admin: 02/03/25 08:23 Dose: 50 mcg
[2025-02-03] MEDS: SODIUM PHOSPHATE 6 MMOL in SODIUM CHLORIDE 0.9% 250 ML IV ONE (18:08)
[2025-02-03 19:51] LABS: ANTI-Xa, UFH(UnfractionatedHep 0.50 IU/ml (0.3-0.7)
[2025-02-03 22:30] LABS: A calco-baum cmplx NotReported Not Detected (NotDetected); Bact fragilis Not Reported Not Detected (NotDetected); Blood Culture Id Panel See PCR Comment (NotDetected); C auris Not Reported Not Detected (NotDetected); Calbicans Not Reported Not Detected (NotDetected); Candida glabrata Not Reported Not Detected (NotDetected); Candida krusei Not Reported Not Detected (NotDetected); Cneoformans/gatti Not Reported Not Detected (NotDetected); Cparapsilosis Not Reported Not Detected (NotDetected); Ctropicalis Not Reported Not Detected (NotDetected); E cloacae compx Not Reported Not Detected (NotDetected); Efaecalis Not Reported Not Detected (NotDetected); Efaecium Not Reported Not Detected (NotDetected); Enterobacterales Not Reported Not Detected (NotDetected); Escherichia coli Not Reported Not Detected (NotDetected); H influenzae Not Reported Not Detected (NotDetected); K aerogenes Not Reported Not Detected (NotDetected); Koxytoca Not Reported Not Detected (NotDetected); Kpneumoniae grp Not Reported Not Detected (NotDetected); Lmonocyt Not Reported Not Detected (NotDetected); N meningitidis Not Reported Not Detected (NotDetected); P aeruginosa Not Reported Not Detected (NotDetected); Proteus spp Not Reported Not Detected (NotDetected); Salmonella spp Not Reported Not Detected (NotDetected); Staph lugdunensis Not Reported Not Detected (NotDetected); Staph spp. Not Reported DETECTED (NotDetected); Staphaureus Not Reported Not Detected (NotDetected); Staphepi Not Reported Not Detected (NotDetected); Stenmaltophilia Not Reported Not Detected (NotDetected); Strep agal(GrpB) Not Reported Not Detected (NotDetected); Strep pneum Not Reported Not Detected (NotDetected); Strep pyog (GrpA) Not Reported Not Detected (NotDetected); Strep spp Not Reported Not Detected (NotDetected)
[2025-02-03 22:33] LABS: Staphylococcus spp. DETECTED (NotDetected)
[2025-02-03] MEDS ORDERED: VANCOMYCIN CONSULT ACTIVE PRN (22:38)
[2025-02-03] MEDS: LORazepam 0.5 MG TAB SL STA (23:15)
[2025-02-03] MEDS: VANCOMYCIN HCL 1,000 MG/270 ML BAG IV STA (23:15)
[2025-02-04 03:00] LABS: Hematocrit (blood only) 36.0 % (37.0-47.0); Hemoglobin 11.7 g/dl (12.0-16.0); Mean Corpuscular Hemoglobin 31.6 pg (25.0-34.0); Mean Corpuscular Volume 97.3 fL (80.0-100.0); Platelet Count 275 K/uL (130-400); RDW Standard Deviation 52.0 fL (36.4-46.3); Red Blood Count 3.70 M/uL (4.20-5.40); White Blood Count 13.54 K/ul (4.8-10.8)
[2025-02-04 03:01] LABS: ANTI-Xa, UFH(UnfractionatedHep 0.33 IU/ml (0.3-0.7)
[2025-02-04 03:23] LABS: Anion Gap 5.0 (3-11); Blood Urea Nitrogen 42.0 mg/dl (6-23); Calcium 8.4 mg/dl (8.6-10.3); Carbon Dioxide 23.0 mmol/L (21-32); Chloride 109.0 mmol/L (98-107); Creatinine Clr Calc Pharmacy 29.8 ml/min; Glucose 108.0 mg/dl (70-99(Fasting)); Magnesium 1.9 mg/dl (1.7-2.4); Potassium 4.9 mmol/L (3.5-5.1); Sodium 137.0 mmol/L (136-145)
[2025-02-04] MEDS ORDERED: SODIUM PHOSPHATE 3 MMOL/1 ML INFUSION IV STA (07:57)
--- NOTE | 2025-02-04 07:59 | Hospitalist Progress Note ---
Date of Service February 04, 2025 Assessment & Plan (1) Acute UTI: Plan: 79-year-old female with past med history significant for type 2 diabetes, CKD stage III, gout, hyperlipidemia, pancreatic cyst, congenital hiatus hernia, history of recurrent DVT, history of pulmonary embolism, primary hypercoagulable state, status post IVC filter, right bundle branch block, nonrheumatic arctic valve stenosis, hypertension, post gastric surgery syndrome, history of multiple gastric polyps, eczema, osteoporosis, who lives at home with her comes because of weakness. Patient says since about a week she is progressively getting weak. Today she was not able to put her socks on which prompted her to come to the ER. She also having some burning micturition since about a week. Also having urinary urgency. Denies any fevers. No abdominal pain. Constipated. Denies any chest pain or shortness of breath. No cough. No runny nose or sore throat. Hemodynamics are okay. Patient is wheelchair-bound at home. She can transfer herself from recliner to wheelchair. Patient also is losing weight lately. As per PCP notes in October because of weight loss there was a plan to hold Trulicity but patient is still taking Trulicity. Acute UTI Weakness possibly from UTI Empiric Rocephin -> now on cefepime d/t foot wound Gentle fluids U cultx posit. for E.coli History of recurrent DVT History of pulmonary embolism Hypercoagulable state Status post IVC filter Was on prophylactic Lovenox Lovenox dose recently adjusted to to 50 mg every 24 hours per anticoagulation clinic Now found to have acute dvt - and on IV heparin Venous doppler- 1. Acute nonocclusive DVT proximal right femoral vein. 2. Extensive acute nonocclusive DVT left common femoral vein, proximal, middle, and distal femoral vein, and popliteal vein. Mild elevation of troponin abnormal ekg will follow serial troponin and echo Echo - LV EF 60-65%. There is moderate concentric LVH. Aortic valve is moderately calcified. Bicuspid aortic valve cannot be excluded. Moderate to severe valvular aortic stenosis. There is mild mitral regurg. Doppler findings do not suggest pulm. hypertension. Compared to study in 2023 aortic valve syst. gradient has increased. Cardiology consulted - Beta-charis placed on hold due to bradycardia. Echocardiogram demonstrated moderate to severe aortic valve stenosis with increase in aortic valve systolic gradient. Recommendations: * Repeat resting 2D transthoracic echocardiogram in 6 months for surveillance of moderate to severe aortic valve stenosis. * Hold metoprolol. * Consider restarting at reduced dose, 25 mg daily, pending review of telemetry. * Titrate losartan to 25 mg daily. * Continue aspirin, statin, and Lovenox injections as ordered. Heel wound XR of foot negative for osteo Wound Cultx posit. for Pseudomonas, Serratia , Stenotrophomonas - pt abx changed to cefepime, also added Bactrim. Will re-culture. Will discuss further w/ ID wound care and podiatry consulted Per podiatry - - Patient examined and evaluated. We discussed that this wound will take a while to heel and we should evaluate her vascular inflow while here inpatient. Arterial doppler exam for b/l LE ordered. Will help determine odds of healing the wound without further intervention. She will benefit from outpatient wound care when stable and discharged. We will continue to see her on a regular basis, as usual, when discharged as well. - Excisional wound debridement with scalpel at bedside. No necrotic, non-viable or infected tissue noted. Wound bed appears viable. - Dressed with Optifoam border gauze. Redress daily with similar. - Will follow; no further surgical intervention planned. - No need for continued hospitalization for the foot. Can be managed outpatient when stable otherwise. Arterial doppler- 1. Evidence of bilateral femoropopliteal grafting, which is patent on both sides. However, the [place] arteries on the left side are occluded and show biphasic and monophasic waveform patterns. CT angiography is suggested for further evaluation. 2. Nonocclusive thrombus in both femoral veins. 3. However, correlation with prior imaging and surgical records is recommended. CKD stage III Presented with creatinine 1.2 which is around baseline We will follow labs Wheelchair-bound History of recurrent falls Back pain Continue lidocaine patch Gout Allopurinol Chronic diastolic CHF Not on diuretics Will monitor Hypertension On metoprolol and Benicar, metoprolol on hold as above Will monitor Diabetes Hold trulicity and metformin Sliding scale Will monitor Current HbA1c level 6.6% GERD Protonix Ongoing weight loss There is a plan to hold trulicity by PCP Follow-up with PCP Hyperlipidemia On statin History of PVD s/p surgery On aspirin and statin History of endometrial cancer S/p surgery DVT prophylaxis On Lovenox -> now on IV heparin Dispo med/tele Full code. Admission and Anticipated Discharge Date Admission Date: February 02, 2025 Subjective Pt seen in follow up of weakness initially admitted for UTI, but also found to have wound on her heel. Podiatry consulted and debrided the wound. Further work up also positive for DVT and on IV heparin. At home was on lovenox 50 daily. Pt is currently lying down in bed in NAD, she says she feels well. She is smiling and denies currently any complaints. Denies fever, chills, chest pain, shortness of breath wound cultx also growing Stenotrophomonas - discussed w/ pharm - added Bactrim. Will re-culture heel wound. ID consult pending Review of Systems Review of Systems: All systems reviewed & are unremarkable except as noted in Subjective Physical Exam Physical Exam: General- elderly F in NAD, Not in distress. hard of hearing Head- atraumatic Eyes- PERRL. Neck- supple, no JVD. Lungs- clear to auscultation no wheezing Heart- regular rhythm Abdomen- normal bowel sounds, soft, nontender, no distension Extremities- mild pretibial edema, no erythema seen. + small wound on heel of R foot Neuro- alert, oriented PERRL, no facial palsy; no dysarthria; moves extremities Results & Data Results & Data Vital Signs (Past 12 Hours) Vital Signs Temp Pulse Pulse Resp BP BP Pulse Ox 02/04/25 07:40 02/04/25 07:13 66 02/04/25 03:38 36.4 C L 70 18 114/77 96 02/03/25 23:17 36.6 C 70 16 152/86 H 99 02/03/25 22:05 77 02/03/25 20:27 O2 Del Method 02/04/25 07:40 Room Air 02/04/25 07:13 02/04/25 03:38 Room Air 02/03/25 23:17 Room Air 02/03/25 22:05 02/03/25 20:27 Room Air Laboratory Results 02/04/25 02/03/25 02/03/25 Range/Units 02:29 20:39 20:06 WBC 13.54 H (4.8-10.8) K/ul RBC 3.70 L (4.20-5.40) M/uL Hgb 11.7 L (12.0-16.0) g/dl Hct 36.0 L (37.0-47.0) % MCV 97.3 (80.0-100.0) fL MCH 31.6 (25.0-34.0) pg MCHC 32.5 (32.0-36.0) g/dL RDW Std Deviation 52.0 H (36.4-46.3) fL RDW Coeff of [place]ek[place] 14.5 (11.5-14.5) % Plt Count 275 (130-400) K/uL MPV 11.2 (9.4-12.4) fL Heparin Anti-Xa, Unfract 0.33 (0.3-0.7) IU/ml Sodium 137 (136-145) mmol/L Potassium 4.9 (3.5-5.1) mmol/L Chloride 109 H (98-107) mmol/L Carbon Dioxide 23 (21-32) mmol/L Anion Gap 5 (3-11) BUN 42 H (6-23) mg/dl Creatinine 1.09 (0.6-1.2) mg/dl Est Cr Clr Drug Dosing 29.8 ml/min eGFR 52.32 BUN/Creatinine Ratio 38.5 H (10-20) Glucose 108 H (70-99(Fasting)) mg/dl POC Glucose 93 72 (70-99) mg/dl Calcium 8.4 L (8.6-10.3) mg/dl Phosphorus 2.2 L (2.5-4.9) mg/dl Magnesium 1.9 (1.7-2.4) mg/dl Staphylococcus sp PCR (NotDetected) Bld Cult ID Panel PCR (NotDetected) 02/03/25 02/03/25 02/03/25 Range/Units 19:21 16:58 16:10 WBC (4.8-10.8) K/ul RBC (4.20-5.40) M/uL Hgb (12.0-16.0) g/dl Hct (37.0-47.0) % MCV (80.0-100.0) fL MCH (25.0-34.0) pg MCHC (32.0-36.0) g/dL RDW Std Deviation (36.4-46.3) fL RDW Coeff of [place] (11.5-14.5) % Plt Count (130-400) K/uL MPV (9.4-12.4) fL Heparin Anti-Xa, Unfract 0.50 0.87 H* (0.3-0.7) IU/ml Sodium (136-145) mmol/L Potassium (3.5-5.1) mmol/L Chloride (98-107) mmol/L Carbon Dioxide (21-32) mmol/L Anion Gap (3-11) BUN (6-23) mg/dl Creatinine (0.6-1.2) mg/dl Est Cr Clr Drug Dosing ml/min eGFR BUN/Creatinine Ratio (10-20) Glucose (70-99(Fasting)) mg/dl POC Glucose 90 (70-99) mg/dl Calcium (8.6-10.3) mg/dl Phosphorus (2.5-4.9) mg/dl Magnesium (1.7-2.4) mg/dl Staphylococcus sp PCR (NotDetected) Bld Cult ID Panel PCR (NotDetected) 02/03/25 02/03/25 02/02/25 Range/Units 14:15 11:54 13:13 WBC (4.8-10.8) K/ul RBC (4.20-5.40) M/uL Hgb (12.0-16.0) g/dl Hct (37.0-47.0) % MCV (80.0-100.0) fL MCH (25.0-34.0) pg MCHC (32.0-36.0) g/dL RDW Std Deviation (36.4-46.3) fL RDW Coeff of [place] (11.5-14.5) % Plt Count (130-400) K/uL MPV (9.4-12.4) fL Heparin Anti-Xa, Unfract 1.12 H* (0.3-0.7) IU/ml Sodium (136-145) mmol/L Potassium (3.5-5.1) mmol/L Chloride (98-107) mmol/L Carbon Dioxide (21-32) mmol/L Anion Gap (3-11) BUN (6-23) mg/dl Creatinine (0.6-1.2) mg/dl Est Cr Clr Drug Dosing ml/min eGFR BUN/Creatinine Ratio (10-20) Glucose (70-99(Fasting)) mg/dl POC Glucose 179 H (70-99) mg/dl Calcium (8.6-10.3) mg/dl Phosphorus (2.5-4.9) mg/dl Magnesium (1.7-2.4) mg/dl Staphylococcus sp PCR DETECTED A (NotDetected) Bld Cult ID Panel PCR See PCR Comment (NotDetected) Medications Administered Current Inpatient Medications Acetaminophen (Acetaminophen 325 Mg Tab) 650 mg PO Q4H PRN PRN Reason: pain/fever Stop: 03/04/25 03:17 Last Admin: 02/04/25 00:02 Dose: 650 mg Alendronate Sodium (Alendronate Sodium 70 Mg Tab) 70 mg PO We@0630 [facility] Stop: 03/09/25 06:29 Allopurinol (Allopurinol 100 Mg Tab) 100 mg PO DAILY [facility] Stop: 03/04/25 08:59 Last Admin: 02/03/25 08:22 Dose: 100 mg Ascorbic Acid (Ascorbic Acid 500 Mg Tab) 500 mg PO DAILY [facility] Stop: 03/04/25 08:59 Last Admin: 02/03/25 08:23 Dose: 500 mg Aspirin (Aspirin 81 Mg Ectab) 81 mg PO DAILY [facility] Stop: 03/04/25 08:59 Last Admin: 02/03/25 08:22 Dose: 81 mg Atorvastatin Calcium (Atorvastatin 20 Mg Tab) 20 mg PO QAM [facility] Stop: 03/04/25 08:59 Last Admin: 02/03/25 08:23 Dose: 20 mg Colestipol HCl (Colestipol Hcl 1 Gm Tab) 1 gm PO BID@1000,2200 [facility] Stop: 03/04/25 09:59 Last Admin: 02/03/25 21:34 Dose: 1 gm Dextrose (Dextrose 50% 50 Ml Syringe) 25 - 50 ml IV UD PRN; Protocol PRN Reason: Hypoglycemia Protocol Stop: 03/04/25 03:17 Enoxaparin Sodium (Enoxaparin Inj 60 Mg/0.6 Ml Syr) 50 mg SQ Q24H [facility]; Protocol Stop: 03/04/25 06:59 Last Admin: 02/02/25 08:23 Dose: 50 mg Ferrous Sulfate (Ferrous Sulfate 325 Mg Tab) 325 mg PO BID [facility] Stop: 03/04/25 08:59 Last Admin: 02/03/25 20:25 Dose: 325 mg Glucagon (Glucagon For Inj 1 Mg Vial) 1 mg SQ UD PRN; Protocol PRN Reason: Hypoglycemia Protocol Stop: 03/04/25 03:17 Glucose (Glucose 40% Gel 15 Gm Tube) 15 - 30 gm PO UD PRN; Protocol PRN Reason: Hypoglycemia Protocol Stop: 03/04/25 03:17 Glucose (Glucose 10 Tab/Tube) 4 - 8 tab PO UD PRN; Protocol PRN Reason: Hypoglycemia Protocol Stop: 03/04/25 03:17 Heparin Sodium/Dextrose (Heparin 27773 Unit/500 Ml D5w) 25,000 units in 500 mls @ 9 mls/hr IV .Q24H [facility]; Protocol Stop: 03/05/25 02:14 Last Titration: 02/03/25 20:23 Dose: 450 units/hr, 9 mls/hr Cefepime HCl (Maxipime 2000mg) 1,000 mg in 10 mls @ 5 mls/min IV Q12H [facility] Stop: 02/04/25 11:59 Last Admin: 02/04/25 00:41 Dose: 5 mls/min Vancomycin HCl 750 mg/ Sodium (Chloride) 265 mls @ 200 mls/hr IV Q24H [facility] Stop: 02/18/25 19:59 Insulin Aspart (Insulin Aspart Per Unit Charge) 0 units SC ACHS [facility] Stop: 03/04/25 07:29 Last Admin: 02/03/25 20:25 Dose: Not Given Lidocaine (Lidocaine 5% 1 Patch) 1 patch TD DAILY PRN PRN Reason: LOWER BACK PAIN Stop: 03/04/25 04:00 Last Admin: 02/03/25 08:24 Dose: 1 patch Losartan Potassium (Losartan Potassium 25 Mg Tab) 25 mg PO DAILY [facility] Stop: 03/05/25 08:59 Last Admin: 02/03/25 08:22 Dose: 25 mg Metoprolol Tartrate (Metoprolol Tartrate 25 Mg Tab) 25 mg PO BID [facility] Stop: 03/04/25 08:59 Last Admin: 02/02/25 10:01 Dose: Not Given Miscellaneous (Carbohydrates For Hypoglycemia ) 15 - 30 gm PO UD PRN PRN Reason: Hypoglycemia Protocol Stop: 03/04/25 03:17 Last Admin: 02/02/25 17:20 Dose: 15 gm Miscellaneous (Remove Lidoderm Patch) 1 each N/A DAILY@2100 [facility] Stop: 03/04/25 20:59 Last Admin: 02/03/25 20:26 Dose: 1 each Miscellaneous Information (Vancomycin Consult Active) 1 each N/A UD PRN PRN Reason: Consult Stop: 03/05/25 22:37 Pantoprazole Sodium (Pantoprazole 40 Mg Tab) 40 mg PO DAILY [facility] Stop: 03/04/25 08:59 Last Admin: 02/03/25 08:22 Dose: 40 mg Polyethylene Glycol (Polyethylene (Miralax) 17 Gm Pack) 17 gm PO DAILY PRN PRN Reason: Constipation Stop: 03/04/25 03:17 Last Admin: 02/02/25 08:43 Dose: 17 gm Vitamin D (Cholecalciferol 25 Mcg (1000 Units) Tab) 50 mcg PO DAILY [facility] Stop: 03/04/25 08:59 Last Admin: 02/03/25 08:23 Dose: 50 mcg
[2025-02-04] MEDS: SODIUM PHOSPHATE 6 MMOL in SODIUM CHLORIDE 0.9% 100 ML IV ONE (08:28)
--- NOTE | 2025-02-04 09:53 | Pharmacy Report ---
Pharmacy PK ABX Note - Date of Service February 04, 2025 - Assessment and Plan Assessment 79 year old F receiving Vancomycin and Cefepime for treatment of UTI/Bacteremia/Heel wound. * Day #3 of Cefepime. Day #1 of Vancomycin. * Afebrile. White count of 13k. SCr at 1.09 mg/dL. * Urine culture grew pansensitive E. coli. Foot culture growing Pseudomonas aeruginosa and Serratia marcescens, awaiting sensitivities on both. * Vanc added overnight for 1/4 bottles from blood cultures growing GPCs that were identified as staph species by BCID2. Likely contaminate. Would recommend d/c of vanc. Plan Vancomycin * Loading dose: 1000 mg IV x 1 * Maintenance dose: 750 mg IV every 24 hours * Regimen is predicted to achieve target AUC/SHEY of 400-600 mg/L.hr * No level to be ordered unless therapy extends beyond 48 hours. Pharmacy will continue to follow and will adjust dose/frequency as necessary. Thank you. Pharmacy has transitioned to AUC monitoring for vancomycin. AUC/SHEY is the preferred PK/PD target and is associated with decreased risk of nephrotoxicity c ompared to traditional trough targets.
[2025-02-04] MEDS: SULFAMETHOXAZOLE/TRIMETHOPRIM DS 800/160MG TAB PO STA (11:48)
[2025-02-04] MEDS: Cefepime 2,000 MG Extended Infusion IV SCH (11:49)
[2025-02-04] MEDS ORDERED: VANCOMYCIN 750 MG in SODIUM CHLORIDE 0.9% 250 ML IV SCH (20:00)
[2025-02-04] MEDS: SULFA/TRIMETH 400/80MG TAB PO SCH (21:01)
[2025-02-05] MEDS: MoRPHine SULFATE 2 MG/ML CARP IV STA (07:17)
[2025-02-05 07:31] LABS: Hematocrit (blood only) 33.2 % (37.0-47.0); Hemoglobin 11.2 g/dl (12.0-16.0); Immature Granulocytes # (auto) 0.06 K/uL (0.01-0.20); Immature Granulocytes % (auto) 0.6 %; Mean Corpuscular Hemoglobin 32.7 pg (25.0-34.0); Mean Corpuscular Volume 96.8 fL (80.0-100.0); Platelet Count 255 K/uL (130-400); RDW Standard Deviation 53.0 fL (36.4-46.3); Red Blood Count 3.43 M/uL (4.20-5.40); White Blood Count 9.46 K/ul (4.8-10.8)
[2025-02-05 07:49] LABS: Anion Gap 3.0 (3-11); Blood Urea Nitrogen 48.0 mg/dl (6-23); Calcium 8.4 mg/dl (8.6-10.3); Carbon Dioxide 24.0 mmol/L (21-32); Chloride 109.0 mmol/L (98-107); Creatinine Clr Calc Pharmacy 27.9 ml/min; Glucose 95.0 mg/dl (70-99(Fasting)); Magnesium 1.9 mg/dl (1.7-2.4); Potassium 5.1 mmol/L (3.5-5.1); Sodium 136.0 mmol/L (136-145)
[2025-02-05 07:53] LABS: ANTI-Xa, UFH(UnfractionatedHep 0.26 IU/ml (0.3-0.7)
--- NOTE | 2025-02-05 09:08 | Hospitalist Progress Note ---
Date of Service February 05, 2025 Assessment & Plan (1) Acute UTI: Plan: 79-year-old female with past med history significant for type 2 diabetes, CKD stage III, gout, hyperlipidemia, pancreatic cyst, congenital hiatus hernia, history of recurrent DVT, history of pulmonary embolism, primary hypercoagulable state, status post IVC filter, right bundle branch block, nonrheumatic arctic valve stenosis, hypertension, post gastric surgery syndrome, history of multiple gastric polyps, eczema, osteoporosis, who lives at home with her comes because of weakness. Patient says since about a week she is progressively getting weak. Today she was not able to put her socks on which prompted her to come to the ER. She also having some burning micturition since about a week. Also having urinary urgency. Denies any fevers. No abdominal pain. Constipated. Denies any chest pain or shortness of breath. No cough. No runny nose or sore throat. Hemodynamics are okay. Patient is wheelchair-bound at home. She can transfer herself from recliner to wheelchair. Patient also is losing weight lately. As per PCP notes in October because of weight loss there was a plan to hold Trulicity but patient is still taking Trulicity. Acute UTI Weakness possibly from UTI Empiric Rocephin -> now on cefepime d/t foot wound Gentle fluids U cultx posit. for E.coli History of recurrent DVT History of pulmonary embolism Hypercoagulable state Status post IVC filter Was on prophylactic Lovenox Lovenox dose recently adjusted to to 50 mg every 24 hours per anticoagulation clinic Now found to have acute dvt - and on IV heparin Venous doppler- 1. Acute nonocclusive DVT proximal right femoral vein. 2. Extensive acute nonocclusive DVT left common femoral vein, proximal, middle, and distal femoral vein, and popliteal vein. Discussed w/ Dr. Nielsen (hematology) on 02/05 - will need to discuss with anticoag. clinic prior to DC as pt failed NOAC before and currently on lovenox 50 daily per anticoag.clinic. Mild elevation of troponin abnormal ekg will follow serial troponin and echo Echo - LV EF 60-65%. There is moderate concentric LVH. Aortic valve is moderately calcified. Bicuspid aortic valve cannot be excluded. Moderate to severe valvular aortic stenosis. There is mild mitral regurg. Doppler findings do not suggest pulm. hypertension. Compared to study in 2023 aortic valve syst. gradient has increased. Cardiology consulted - Beta-charis placed on hold due to bradycardia. Echocardiogram demonstrated moderate to severe aortic valve stenosis with increase in aortic valve systolic gradient. Recommendations: * Repeat resting 2D transthoracic echocardiogram in 6 months for surveillance of moderate to severe aortic valve stenosis. * Hold metoprolol. * Consider restarting at reduced dose, 25 mg daily, pending review of telemetry. * Titrate losartan to 25 mg daily. * Continue aspirin, statin, and Lovenox injections as ordered. Heel wound XR of foot negative for osteo Wound Cultx posit. for Pseudomonas, Serratia , Stenotrophomonas - pt abx changed to cefepime, also added Bactrim. Will re-culture. Will discuss further w/ ID wound care and podiatry consulted Per podiatry - - Patient examined and evaluated. We discussed that this wound will take a while to heel and we should evaluate her vascular inflow while here inpatient. Arterial doppler exam for b/l LE ordered. Will help determine odds of healing the wound without further intervention. She will benefit from outpatient wound care when stable and discharged. We will continue to see her on a regular basis, as usual, when discharged as well. - Excisional wound debridement with scalpel at bedside. No necrotic, non-viable or infected tissue noted. Wound bed appears viable. - Dressed with Optifoam border gauze. Redress daily with similar. - Will follow; no further surgical intervention planned. - No need for continued hospitalization for the foot. Can be managed outpatient when stable otherwise. Arterial doppler- 1. Evidence of bilateral femoropopliteal grafting, which is patent on both sides. However, the [place] arteries on the left side are occluded and show biphasic and monophasic waveform patterns. CT angiography is suggested for further evaluation. 2. Nonocclusive thrombus in both femoral veins. 3. However, correlation with prior imaging and surgical records is recommended. Will consult with vasc. surgery CKD stage III Presented with creatinine 1.2 which is around baseline We will follow labs Wheelchair-bound History of recurrent falls Back pain Continue lidocaine patch Gout Allopurinol Chronic diastolic CHF Not on diuretics Will monitor Hypertension On metoprolol and Benicar, metoprolol on hold as above Will monitor Diabetes Hold trulicity and metformin Sliding scale Will monitor Current HbA1c level 6.6% GERD Protonix Ongoing weight loss, persistent nausea, poor oral intake, "butt pain" There is a plan to hold trulicity by PCP per admission note Will cont. bowel regimen will obtain abdominal imaging, and consult w/ HI Follow-up with PCP Hyperlipidemia On statin History of PVD s/p surgery On aspirin and statin will discuss with vasc. surgery as above History of endometrial cancer S/p surgery DVT prophylaxis On Lovenox -> now on IV heparin Dispo med/tele Full code. Admission and Anticipated Discharge Date Admission Date: February 02, 2025 Subjective Pt seen in follow up of weakness initially admitted for UTI, but also found to have wound on her heel. Podiatry consulted and debrided the wound. Further work up also positive for DVT and on IV heparin. At home was on lovenox [address] Nielsen (hematology) this AM and discussed with - will need to discuss with anticoag. clinic prior to DC. Pt reported chest pain at upper sternum and dizziness early this AM. [employer] Specialist ordered ecg and troponin. Currently she denies any chest pain but is anxious on and off. Will discuss further w/ cardiology. Per cardiology also concern for weight loss, nausea, gerd and recommend GI consult - will obtain abdominal imaging and ct pe wound cultx also growing Stenotrophomonas - discussed w/ pharm - added Bactrim. re-cultured heel wound. ID consult pending Pt re-assessed again in the afternoon as she said she was feeling down and had "butt pain". Will cont. bowel regimen and will obtain abd. imaging as above Review of Systems Review of Systems: All systems reviewed & are unremarkable except as noted in Subjective Physical Exam Physical Exam: General- elderly F in NAD, Not in distress. hard of hearing Head- atraumatic Eyes- PERRL. Neck- supple, no JVD. Lungs- clear to auscultation no wheezing Heart- regular rhythm Abdomen- normal bowel sounds, soft, nontender, no distension Extremities- mild pretibial edema, no erythema seen. + small wound on heel of R foot Neuro- alert, oriented PERRL, no facial palsy; no dysarthria; moves extremities Results & Data Results & Data Vital Signs (Past 12 Hours) Vital Signs Temp Pulse Pulse Resp BP BP Pulse Ox 02/05/25 08:08 36.6 C 64 20 138/78 98 02/05/25 07:21 02/05/25 07:07 63 02/05/25 04:19 36.4 C L 64 16 143/82 H 96 02/04/25 22:00 36.3 C L 70 16 123/69 96 02/04/25 21:59 73 O2 Del Method 02/05/25 08:08 Room Air 02/05/25 07:21 Room Air 02/05/25 07:07 02/05/25 04:19 Room Air 02/04/25 22:00 Room Air 02/04/25 21:59 Laboratory Results 02/05/25 02/05/25 02/04/25 Range/Units 08:01 06:57 20:21 WBC 9.46 (4.8-10.8) K/ul RBC 3.43 L (4.20-5.40) M/uL Hgb 11.2 L (12.0-16.0) g/dl Hct 33.2 L (37.0-47.0) % MCV 96.8 (80.0-100.0) fL MCH 32.7 (25.0-34.0) pg MCHC 33.7 (32.0-36.0) g/dL RDW Std Deviation 53.0 H (36.4-46.3) fL RDW Coeff of [place] 14.7 H (11.5-14.5) % Plt Count 255 (130-400) K/uL MPV 11.4 (9.4-12.4) fL Immature Gran % (Auto) 0.6 % Neut % (Auto) 83.1 % Lymph % (Auto) 9.1 % [place] % (Auto) 5.9 % Eos % (Auto) 0.8 % Baso % (Auto) 0.5 % Neut # (Auto) 7.85 H (1.40-6.50) K/uL Lymph # (Auto) 0.86 L (1.20-3.40) K/uL [place] # (Auto) 0.56 (0.11-0.59) K/uL Eos # (Auto) 0.08 (0.00-0.50) K/uL Baso # (Auto) 0.05 (0.00-0.20) K/uL Immature Gran # (Auto) 0.06 (0.01-0.20) K/uL Heparin Anti-Xa, Unfract 0.26 L (0.3-0.7) IU/ml Sodium 136 (136-145) mmol/L Potassium 5.1 (3.5-5.1) mmol/L Chloride 109 H (98-107) mmol/L Carbon Dioxide 24 (21-32) mmol/L Anion Gap 3 (3-11) BUN 48 H (6-23) mg/dl Creatinine 1.22 H (0.6-1.2) mg/dl Est Cr Clr Drug Dosing 27.9 ml/min eGFR 45.71 BUN/Creatinine Ratio 39.3 H (10-20) Glucose 95 (70-99(Fasting)) mg/dl POC Glucose 79 174 H (70-99) mg/dl Calcium 8.4 L (8.6-10.3) mg/dl Phosphorus 2.4 L (2.5-4.9) mg/dl Magnesium 1.9 (1.7-2.4) mg/dl Troponin I High Sens 15.3 H (0-14) pg/ml 02/04/25 02/04/25 Range/Units 16:58 12:02 WBC (4.8-10.8) K/ul RBC (4.20-5.40) M/uL Hgb (12.0-16.0) g/dl Hct (37.0-47.0) % MCV (80.0-100.0) fL MCH (25.0-34.0) pg MCHC (32.0-36.0) g/dL RDW Std Deviation (36.4-46.3) fL RDW Coeff of [place] (11.5-14.5) % Plt Count (130-400) K/uL MPV (9.4-12.4) fL Immature Gran % (Auto) % Neut % (Auto) % Lymph % (Auto) % [place] % (Auto) % Eos % (Auto) % Baso % (Auto) % Neut # (Auto) (1.40-6.50) K/uL Lymph # (Auto) (1.20-3.40) K/uL [place] # (Auto) (0.11-0.59) K/uL Eos # (Auto) (0.00-0.50) K/uL Baso # (Auto) (0.00-0.20) K/uL Immature Gran # (Auto) (0.01-0.20) K/uL Heparin Anti-Xa, Unfract (0.3-0.7) IU/ml Sodium (136-145) mmol/L Potassium (3.5-5.1) mmol/L Chloride (98-107) mmol/L Carbon Dioxide (21-32) mmol/L Anion Gap (3-11) BUN (6-23) mg/dl Creatinine (0.6-1.2) mg/dl Est Cr Clr Drug Dosing ml/min eGFR BUN/Creatinine Ratio (10-20) Glucose (70-99(Fasting)) mg/dl POC Glucose 83 179 H (70-99) mg/dl Calcium (8.6-10.3) mg/dl Phosphorus (2.5-4.9) mg/dl Magnesium (1.7-2.4) mg/dl Troponin I High Sens (0-14) pg/ml Medications Administered Current Inpatient Medications Acetaminophen (Acetaminophen 325 Mg Tab) 650 mg PO Q4H PRN PRN Reason: pain/fever Stop: 03/04/25 03:17 Last Admin: 02/04/25 21:01 Dose: 650 mg Alendronate Sodium (Alendronate Sodium 70 Mg Tab) 70 mg PO We@0630 [facility] Stop: 03/09/25 06:29 Allopurinol (Allopurinol 100 Mg Tab) 100 mg PO DAILY [facility] Stop: 03/04/25 08:59 Last Admin: 02/05/25 08:36 Dose: 100 mg Ascorbic Acid (Ascorbic Acid 500 Mg Tab) 500 mg PO DAILY [facility] Stop: 03/04/25 08:59 Last Admin: 02/05/25 08:36 Dose: 500 mg Aspirin (Aspirin 81 Mg Ectab) 81 mg PO DAILY [facility] Stop: 03/04/25 08:59 Last Admin: 02/05/25 08:36 Dose: 81 mg Atorvastatin Calcium (Atorvastatin 20 Mg Tab) 20 mg PO QAM [facility] Stop: 03/04/25 08:59 Last Admin: 02/05/25 08:36 Dose: 20 mg Colestipol HCl (Colestipol Hcl 1 Gm Tab) 1 gm PO BID@1000,2200 [facility] Stop: 03/04/25 09:59 Last Admin: 02/04/25 22:58 Dose: 1 gm Dextrose (Dextrose 50% 50 Ml Syringe) 25 - 50 ml IV UD PRN; Protocol PRN Reason: Hypoglycemia Protocol Stop: 03/04/25 03:17 Enoxaparin Sodium (Enoxaparin Inj 60 Mg/0.6 Ml Syr) 50 mg SQ Q24H [facility]BIE; Protocol Stop: 03/04/25 06:59 Last Admin: 02/02/25 08:23 Dose: 50 mg Ferrous Sulfate (Ferrous Sulfate 325 Mg Tab) 325 mg PO BID [facility] Stop: 03/04/25 08:59 Last Admin: 02/05/25 08:35 Dose: 325 mg Glucagon (Glucagon For Inj 1 Mg Vial) 1 mg SQ UD PRN; Protocol PRN Reason: Hypoglycemia Protocol Stop: 03/04/25 03:17 Glucose (Glucose 40% Gel 15 Gm Tube) 15 - 30 gm PO UD PRN; Protocol PRN Reason: Hypoglycemia Protocol Stop: 03/04/25 03:17 Glucose (Glucose 10 Tab/Tube) 4 - 8 tab PO UD PRN; Protocol PRN Reason: Hypoglycemia Protocol Stop: 03/04/25 03:17 Heparin Sodium/Dextrose (Heparin 85600 Unit/500 Ml D5w) 25,000 units in 500 mls @ 9 mls/hr IV .Q24H ABBIE; Protocol Stop: 03/05/25 02:14 Last Titration: 02/03/25 20:23 Dose: 450 units/hr, 9 mls/hr Cefepime HCl 2,000 mg/ (Dextrose) 100 mls @ 33.333 mls/hr IV Q12H ABBIE; Protocol Stop: 02/11/25 11:59 Last Infusion: 02/05/25 02:35 Dose: Infused Insulin Aspart (Insulin Aspart Per Unit Charge) 0 units SC ACHS [facility] Stop: 03/04/25 07:29 Last Admin: 02/05/25 08:42 Dose: Not Given Lidocaine (Lidocaine 5% 1 Patch) 1 patch TD DAILY PRN PRN Reason: LOWER BACK PAIN Stop: 03/04/25 04:00 Last Admin: 02/03/25 08:24 Dose: 1 patch Losartan Potassium (Losartan Potassium 25 Mg Tab) 25 mg PO DAILY [facility] Stop: 03/05/25 08:59 Last Admin: 02/04/25 08:15 Dose: 25 mg Metoprolol Tartrate (Metoprolol Tartrate 25 Mg Tab) 25 mg PO BID [facility] Stop: 03/04/25 08:59 Last Admin: 02/02/25 10:01 Dose: Not Given Miscellaneous (Carbohydrates For Hypoglycemia ) 15 - 30 gm PO UD PRN PRN Reason: Hypoglycemia Protocol Stop: 03/04/25 03:17 Last Admin: 02/02/25 17:20 Dose: 15 gm Miscellaneous (Remove Lidoderm Patch) 1 each N/A DAILY@2100 [facility]E Stop: 03/04/25 20:59 Last Admin: 02/04/25 21:02 Dose: 1 each Pantoprazole Sodium (Pantoprazole 40 Mg Tab) 40 mg PO DAILY [facility] Stop: 03/04/25 08:59 Last Admin: 02/05/25 08:36 Dose: 40 mg Polyethylene Glycol (Polyethylene (Miralax) 17 Gm Pack) 17 gm PO DAILY PRN PRN Reason: Constipation Stop: 03/04/25 03:17 Last Admin: 02/02/25 08:43 Dose: 17 gm Trimethoprim/Sulfamethoxazole (Sulfa/Trimeth 400/80mg Tab) 1 tab PO BID [facility]BIE Stop: 02/11/25 20:59 Last Admin: 02/05/25 08:35 Dose: 1 tab Vitamin D (Cholecalciferol 25 Mcg (1000 Units) Tab) 50 mcg PO DAILY [facility] Stop: 03/04/25 08:59 Last Admin: 02/05/25 08:35 Dose: 50 mcg
--- NOTE | 2025-02-05 10:18 | Cardiology Progress Note ---
Date of Service February 05, 2025 Assessment & Plan (1) Chest pain at rest: (2) Dizziness: (3) Elevated troponin: (4) Aortic stenosis: Plan 79 year old female admitted on 02/01 with weakness, UTI, marked unplanned weight loss, earlier satiety, hypertensive urgency. Cardiology initially consulted secondary to elevated high sensitivity troponin likely secondary to hypertensive urgency. Mild bradycardia resulted in discontinuation of prior to arrival Lopressor (25 BID) Repeat cardiology evaluation requested secondary to chest discomfort, burning sensation over right sternoclavicular area upon awaking. EKG this morning without acute change. High-sensitivity troponin 15.3, and downtrending. Telemetry benign - sinus with a first-degree AV block Recommendations: * Trial low dose long acting nitrates, Imdur. * Decrease losartan to 12.5 mg/day, RE: concern for hyperkalemia * Continue ASA and statin * Continue to hold beta-charis therapy, for now * Consider GI consultation, nausea, unplanned weight loss, early satiety Admission and Anticipated Discharge Date Admission Date: February 02, 2025 Supervising Physician Co-Signing Physician Notes Patient was seen and personally examined. Full assessment and plan as by advanced provider as above. Care and management discussed and personally endorsed 79-year-old female admitted with weakness. Plan as outlined continue to hold beta-charis. Atypical symptoms this morning right upper sternal discomfort. No arrhythmias on telemetry other than rare ventricular ectopy EKG without acute changes. Plan as outlined Subjective Hospitalist requested repeat cardiac evaluation after patient experienced right sided upper chest burning sensation upon awakening. Patient notes dizzy spell this morning, spinning sensation, trouble moving bowels, excessive gas. Notes eating a few bites and then feeling like she is going to throw up. Describes "tremendous weight loss," down 20 pounds since October per patient report. Feels shaky when holding utensils to eat breakfast. Review of Systems Review of Systems: Complete Review of Systems is as stated above, negative, or noncontributory. Physical Exam Physical Exam: General: NAD. HENT: Normocephalic. Atraumatic. Eyes: PER. Conjunctiva pink, sclera clear. Neck: Transmitted systolic murmur. No JVD. Heart: RRR, 66 bpm. Grade II/ systolic ejection murmur. No diastolic murmur. Lungs: Clear to auscultation. Abdomen: +BS. Soft. Nontender. No masses or organomegaly. Extremities: No edema. Limited neurological examination is without focal deficits. Results & Data Vital Signs (Past 12 Hours) Vital Signs Temp Pulse Pulse Resp BP BP Pulse Ox 02/05/25 08:08 36.6 C 64 20 138/78 98 02/05/25 07:21 02/05/25 07:07 63 02/05/25 04:19 36.4 C L 64 16 143/82 H 96 O2 Del Method 02/05/25 08:08 Room Air 02/05/25 07:21 Room Air 02/05/25 07:07 02/05/25 04:19 Room Air Laboratory Results Cardiac Enzymes 02/05/25 Range/Units 06:57 Troponin I High Sens 15.3 H (0-14) pg/ml CBC 02/05/25 Range/Units 06:57 WBC 9.46 (4.8-10.8) K/ul RBC 3.43 L (4.20-5.40) M/uL Hgb 11.2 L (12.0-16.0) g/dl Hct 33.2 L (37.0-47.0) % Plt Count 255 (130-400) K/uL Neut # (Auto) 7.85 H (1.40-6.50) K/uL Lymph # (Auto) 0.86 L (1.20-3.40) K/uL [place] # (Auto) 0.56 (0.11-0.59) K/uL Eos # (Auto) 0.08 (0.00-0.50) K/uL Baso # (Auto) 0.05 (0.00-0.20) K/uL Comprehensive Metabolic Panel 02/05/25 Range/Units 06:57 Sodium 136 (136-145) mmol/L Potassium 5.1 (3.5-5.1) mmol/L Chloride 109 H (98-107) mmol/L Carbon Dioxide 24 (21-32) mmol/L BUN 48 H (6-23) mg/dl Creatinine 1.22 H (0.6-1.2) mg/dl Glucose 95 (70-99(Fasting)) mg/dl Calcium 8.4 L (8.6-10.3) mg/dl Intake and Output 02/04/25 02/05/2525 22:59 06:59 14:59 Intake Total 220 / 522 200 / 522 Output Total 550 / 900 250 / 900 Balance -330 / -378 -50 / -378 Intake: IV 100 / 302 100 / 302 Cefepime 2,000 mg In Dextrose 5 100 / 200 100 / 200 % Mini-B 100 ml @ 33.333 mls/hr IV Q12H [facility] Rx#:[id number] Oral 120 / 220 100 / 220 Output: Urine Amount (Catheter) 550 / 900 250 / 900 [place]/Indwelling 550 / 900 250 / 900 Other: Weight 45.7 kg Weight Measurement Method Built in [facility] Diagnostic Findings EKG this morning revealed sinus rhythm at 66 bpm with a first-degree AV block, left axis deviation, right bundle branch block, possible old anterolateral infarct. Continuous telemetry monitoring reveals sinus with a first-degree AV block, heart rates sinus ranging from the 60s to the 90s High-sensitivity troponin 15.3 pg/mL this morning, previously 19.7 pg/mL on February 02, 2015. High-sensitivity troponin this admission as follows: 24.8 -> 18.6 -> 23.1 -> 19.5 -> 19.7 -> 15.3 February 02, 2025 TTE ([facility], Dr. Segura): Left ventricular ejection fraction 60 t o 65%. Moderate concentric LVH. Moderately calcified aortic valve with moderate to severe stenosis. Bicuspid aortic valve not excluded. Mild mitral and tricuspid regurgitation. Doppler findings do not suggest pulmonary hypertension. Compared to study dated November 22, 2023, aortic valve systolic gradient has increased. PG Care Time/CCT Total # of Minutes Spent Total Time Spent with Patient: Total time spent is greater than 50% in coordination of care (as documented) at patient's floor/unit and/or counseling patient: Coding Level of Care Code 77692 SUB INP/OBS CARE 3/50MIN Diagnoses Chest pain at rest R07.9 Dizziness R42 Elevated troponin R79.89 Nonrheumatic aortic valve stenosis I35.0 Cardiac valve disease etiology: nonrheumatic (4) Aortic stenosis Cardiac valve disease etiology: nonrheumatic Qualified Code(s): I35.0 - Nonrheumatic aortic (valve) stenosis
[2025-02-05] MEDS: OPTIRAY 320 125ml IV ONE (11:04)
--- NOTE | 2025-02-05 11:38 | CT Scan Report ---
CT angio chest PE protocol CT DOSE: 478.45 mGy.cm HISTORY: 79 years-old Female with PE. Acute shortness of breath with acute DVT TECHNIQUE: Multiple CTA images of the chest were obtained after the intravenous administration of 112 ml Optiray. Coronal and sagittal MIPS were obtained from the axial data set and were submitted for review. All measurements were obtained according to NASCET criteria. A dose lowering technique was u tilized adhering to the principles of ALARA. COMPARISON: Duplex venous Doppler 02/03/2025 FINDINGS: CTA: Moderate cardiomegaly. No pleural effusion. Atherosclerosis of the thoracic aorta without aneurysm or dissection. No central pulmonary emboli. Suboptimal evaluation of the segmental and subsegmental bra nches secondary to contrast bolus timing. CT CHEST: Unremarkable thyroid. Calcified mediastinal nodes suggestive of prior granulomatous disease. Trace le ft pleural effusion. No pneumothorax. Moderate right hemidiaphragmatic elevation. Dependent bibasilar linear consolidations suggestive of atelectasis. No suspicious pulmonary nodules or masses. There ar e few subpleural apical nodules measuring up to 3 mm bilaterally which are of low clinical suspicion. No acute upper abdominal abnormality. Osteoarthritis of the shoulders with right glenohumeral joint e ffusion containing ossified loose bodies. Midthoracic dextroscoliosis. IMPRESSION: 1. No central pulmonary emboli identified. 2. Trace left pleural effusion with dependent bibasilar consolidation suggestive of atelectasis. ACT 112: Negative or not required by law. The above report was generated using voice recognition software. It may contain grammatical, syntax o r spelling errors. Electronically signed by: Bobby Mercado M.D. 02/05/2025 11:36 AM
--- NOTE | 2025-02-05 13:07 | Podiatry Progress Note ---
Date of Service February 05, 2025 Assessment & Plan (1) Bilateral edema of lower extremity: (2) Diabetic peripheral neuropathy associated with type 2 diabetes mellitus: (3) Diabetic ulcer of right foot: (4) Chronic ulcer of right foot with fat layer exposed: Plan - Patient examined and evaluated. Wound cleaned, redressed with optifoam gauze - No new concerns, wound is stable. No evidence of local infection. - Once stable per medicine, can be discharged home with retirement outpatient follow-up. - If she fails to improve with treatment of her UTI and the belief becomes her foot wound is causing some of her acute concerns, a biopsy could be obtained surgically. - Will follow Admission and Anticipated Discharge Date Admission Date: February 02, 2025 Review of Systems Constitutional: no fever, no chills, no fatigue and no weakness Eyes: no problem reported Ear, Nose, Mouth, Throat: no problem reported Respiratory: no problem reported Cardiovascular: + edema; no problem reported Gastrointestinal: no nausea, no vomiting and no problem reported Genitourinary: no problem reported Musculoskeletal: no problem reported Integumentary: + skin ulcer, + wounds and + erythema Neurologic: + loss of sensation, + numbness and + pa resthesia; no generalized weakness Psychiatric: no problem reported Physical Exam Physical Exam: Lower extremity focused exam: DP pulses diminished, PT pulses nonpalpable. CFT brisk to the digits. B/L Lower extremity is cool to cold proximal to distal. Skin atrophic. Nails dystrophic. Well circumscribed 1 cm ulceration noted to plantar right heel. This is neuropathic in nature with a 100% granular base after sharp debridement. No deep probing noted; no extension to bone or tendons. No tunneling or undermining of wound margins. No purulence. Minimal bleeding on bedside debridement. Foot is rigidly pronated with rigid flatfoot deformity, longstanding and unchanged. No new suspicion of collapse. Constitutional: WD/WN, vitals as above + ill appearing and + thin Eyes: PERRL, conjunctivae normal, anicteric sclerae ENMT: external ear and nose normal, oropharynx normal Neck: trachea midline, no thyromegaly normal visual inspection Respiratory: normal respiratory effort; no respiratory distress Cardiovascular: Rate/Rhythm: regular rate and regular rhythm Vessels: + posterior tibial pulses abnormal and + dorsalis pedis pulses abnormal Chest (Breasts): Chest: normal inspection of chest Gastrointestinal (Abdomen): Inspection/Auscultation: abdomen normal to inspection Percussion/Palpation: + abdomen tender and abdomen soft Musculoskeletal: no cyanosis or clubbing, extremities motor strength 5/5 Head/Neck/Chest: normocephalic and head atraumatic Extremities: + abnormal strength, + abnormal muscle tone, + lower leg abnormality and + foot abnormality Ankle: + deformity; no skin erythema and no ecchymosis Skin: + turgor decreased, + ulcer, + skin atro phy, + nail abnormality and + nails dystrophic; no erythema and no eschar Neurologic: awake; + abnormal touch/pain/proprioception, + abnormal sensation to monofilament and no focal motor deficits Psychiatric: A+Ox3, euthymic affect Results & Data Results & Data Vital Signs (Past 12 Hours) Vital Signs Temp Pulse Pulse Resp BP BP Pulse Ox 02/05/25 12:10 36.5 C 77 20 161/91 H 99 02/05/25 08:08 36.6 C 64 20 138/78 98 02/05/25 07:21 02/05/25 07:07 63 02/05/25 04:19 36.4 C L 64 16 143/82 H 96 O2 Del Method 02/05/25 12:10 Room Air 02/05/25 08:08 Room Air 02/05/25 07:21 Room Air 02/05/25 07:07 02/05/25 04:19 Room Air (3) Diabetic ulcer of right foot Diabetic foot ulcer location: heel Diabetes mellitus type: type 2 Non- pressure ulcer stage: limited to breakdown of skin Qualified Code(s): E11.621 - Type 2 diabetes mellitus with foot ulcer; L97.411 - Non-pressure chronic ulcer of right heel and midfoot limited to breakdown of skin
[2025-02-05] MEDS: SULFA/TRIMETH 400/80MG TAB PO ONE (15:21)
[2025-02-05] MEDS: POLYETHYLENE (MIRALAX) 17 GM PACK PO SCH (15:21)
[2025-02-05] MEDS: SENNA 8.6 MG TAB PO SCH (15:21)
--- NOTE | 2025-02-05 15:37 | Electrocardiogram Report ---
Test Reason : Blood Pressure : */* mmHG Vent. Rate : 66 BPM Atrial Rate : 66 BPM P-R Int : 236 ms QRS Dur : 128 ms QT Int : 440 ms P-R-T Axes : 71 -52 6 degrees QTcB Int : 461 ms Sinus rhythm with 1st degree A-V block Left axis deviation Right bundle branch block Inferior infarct , age undetermined Anterolateral infarct , age undetermined Abnormal ECG When compared with ECG of 02-Feb-2025 00:39, QRS voltage has decreased in precordial leads Confirmed by Rashid Simpson ([id number]) on 02/05/2025 3:36:41 PM Referred By: REFERRED SELF Confirmed By: Rashid Simpson
[2025-02-05 16:18] LABS: ANTI-Xa, UFH(UnfractionatedHep 0.86 IU/ml (0.3-0.7)
[2025-02-05] MEDS: OPTIRAY 320 100ml IV ONE (19:36)
[2025-02-05] MEDS: LORazepam 0.5 MG TAB PO STA (19:53)
--- NOTE | 2025-02-05 20:30 | CT Scan Report ---
CT ABDOMEN and PELVIS with INTRAVENOUS CONTRAST HISTORY: Abdominal pain TECHNIQUE: CT abdomen and pelvis with contrast. IV CONTRAST: 100 mL of OMNIPAQUE 300 ENTERIC CONTRAST: Not Given COMPARISON: FINDINGS: LOWER CHEST: Mildly enlarged heart. Coronary and valvular calcifications. Bibasilar atelectasis. LIVER: No focal lesion identified. Hepatic steatosis GALLBLADDER/BILIARY: Unremarkable gallbladder. No abnormal biliary dilatation. SPLEEN: Unremarkable. PANCREAS: Atrophic. Cystic changes on the pancreas may represent IPMN's ADRENALS: Unremarkable. KIDNEYS: Atrophic kidneys bilaterally. Cortical cysts. Excreted contrast limits evaluation for small stones. No hydronephrosis. Bilateral mild perinephric stranding. PERITONEUM/RETROPERITONEUM. No lymphadenopathy by size criteria. No aortic aneurysm. Moderate atherosclerosis IVC filter in place. Presacral fluid is not specific. GASTROINTESTINAL: No obstruction. Surgical sutures are again seen along the stomach. Duodenal diverticula. Colonic diverticulosis without evidence of diverticulitis. There is a moderate-sized stool ball resulting in impaction of the rectal vault. Mild perirectal inflammation is also present. Upstream, there is a moderate stool burden in the colon. REPRODUCTIVE: No suspicious pelvic masses identified URINARY BLADDER: Acosta catheter in place. Mild wall thickening ABDOMINAL WALL: Anasarca. Apparent central filling defect in the left femoral vein. Question DVT. If warranted, DVT ultrasound may be obtained for further evaluation BONES: No acute findings. IMPRESSION: Findings suggesting mild stercoral colitis and mild upstream constipation. Apparent central filling defect in the left femoral vein. Question DVT. If warranted, DVT ultrasound may be obtained for further evaluation Electronically signed by Gilberto Fields 02-05-2025 8:30 PM
[2025-02-05 23:43] LABS: ANTI-Xa, UFH(UnfractionatedHep 0.85 IU/ml (0.3-0.7)
[2025-02-05] MEDS: CEFEPIME IV SCH (23:51)
[2025-02-05] MEDS: INFUSION IV SCH (23:51)
[2025-02-06 07:24] LABS: ANTI-Xa, UFH(UnfractionatedHep 0.70 IU/ml (0.3-0.7)
[2025-02-06] MEDS: SULFA/TRIMETH 400/80MG TAB PO SCH (08:15)
[2025-02-06] MEDS: POLYETHYLENE (MIRALAX) 17 GM PACK PO SCH (08:15)
--- NOTE | 2025-02-06 08:24 | Gastrointestinal Consultation ---
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 She is sitting upright in bed, eating breakfast, reporting decreased appetite and post-prandial nausea w/o vomiting 1. Constipation - CT w/ moderate-sized stool ball resulting in impaction of the rectal vault, moderate stool burden in the colon - Tap water enema every TID x 1 day - Miralax 1 capful twice daily 2. Nausea, history of gastroparesis - She previously followed with [facility] for presumed gastroparesis - Recommend she re-establish as OP - Gastroparesis diet as tolerated - Consider trial off of Trulicity 3. Weight loss - Recommend she have OP EGD/Colonoscopy with her established GI team at [facility] I spent a total of 60 minutes on the date of service in review of patient's record, and previously obtained information in person and appropriate medical visit, discussion and education of plan, with patient and/or caregiver, placing orders for tests/referral/procedures as medically necessary and documentation of pertinent clinical information in patient's medical records for their visit today. Supervising Physician Co-Signing Physician Notes Reviewed with nurse practitioner. Agree with notes as outlined in this document. History of gastroparesis. Previously on Reglan. Notes early satiety. Restart Reglan as previously prescribed. Also has fecal impaction. Abdomen is relatively benign digital rectal examination did not show fecal impaction. Patient did had a large bowel movement following tapwater enema. I would have her on chronic MiraLAX. Trial of Reglan follow-up with her usual treating manager lvn Dr. Maya at discharge. 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 She is a poor historian. She cannot tell me how long she has had nausea and decreased appetite. If asked if this is a recent symptoms or chronic, she is unsure. We discussed previous EGD at [facility] showing retained food and findings of gastroparesis and previous scheduled Reglan and she suggests maybe her symptoms are chronic. She also notes constipation. Straining. Incomplete BMs. No black or bloody stools. CTAP 2024: Findings suggesting mild stercoral colitis and mild upstream constipation EGD 2015: Reflux esophagitis. - A large amount of food (residue) in the stomach. - No specimens collected. EGD 2014: Normal esophagus. - A previous surgical anastomosis was found, anastomosis characterized by healthy appearing mucosa and an intact staple line. - Gastritis. - Multiple gastric polyps. Biopsied. If found to be adenomatous will offer repeat EMR. - Normal duodenal bulb and 2nd part of the duodenum. EUS 2012: An esophago-gastric anastomosis was found. - A small amount of food (residue) in the stomach. - Multiple gastric polyps. Several resected but not retrieved. A number of polyps were biopsied. - Nromal ampulla. - Normal common bile duct. - A 5 mm by 4 mm cystic lesion was seen in the pancreatic body. too small for FNA EGD 2012: Normal esophagus. - A large amount of food (residue) in the stomach. Colonoscopy 2012: Moderate diverticulosis in the sigmoid colon. - Internal hemorrhoids. - The examination was otherwise normal. Allergies Allergy/AdvReac Type Severity Reaction Status Date / Time No Known Allergies Allergy Verified 02/02/25 00:03 Home Medications Medication Instructions Recorded Confirmed Type triamcinolone acetonide 0.1 % 1 appln topical BID PRN Skin 04/20/19 02/02/25 History topical cream Irritation alendronate 70 mg tablet 70 mg PO WK #4 tabs 11/25/23 02/02/25 Rx allopurinol 100 mg tablet 100 mg PO DAILY #30 tabs 11/25/23 02/02/25 Rx aspirin 81 mg tablet,delayed 81 mg PO DAILY #30 tabs 11/25/23 02/02/25 Rx release cholecalciferol (vitamin D3) 50 2,000 units PO DAILY #30 tabs 11/25/23 02/02/25 Rx mcg (2,000 unit) tablet colestipol 1 gram tablet 1 gm PO BID #60 tabs 11/25/23 02/02/25 Rx dulaglutide 1.5 mg/0.5 mL 1.5 mg (0.5 mL) subcut WK #2 mL 11/25/23 02/02/25 Rx subcutaneous pen injector (Trulicity) metformin 500 mg tablet,extended 500 mg PO BID #60 tabs 11/25/23 02/02/25 Rx release 24 hr metoprolol tartrate 25 mg tablet 25 mg PO BID #60 tabs 11/25/23 02/02/25 Rx pantoprazole 20 mg tablet,delayed 20 mg PO DAILY #30 tabs 11/25/23 02/02/25 Rx release ascorbic acid (vitamin C) 500 mg 500 mg PO DAILY 02/02/25 02/02/25 History tablet (Vitamin C) atorvastatin 20 mg tablet 20 mg PO QAM 02/02/25 02/02/25 History enoxaparin 60 mg/0.6 mL 50 mg subcut Q24H 02/02/25 02/02/25 History subcutaneous syringe ferrous sulfate 325 mg (65 mg 325 mg PO BID 02/02/25 02/02/25 History iron) tablet lidocaine 4 % topical patch 1 patch topical DAILY PRN LOWER 02/02/25 02/02/25 History BACK PAIN olmesartan 5 mg tablet (Benicar) 5 mg PO DAILY 02/02/25 02/02/25 History omega 5-xnt-bam-fish oil 1,000 mg 1 cap PO DAILY 02/02/25 02/02/25 History (120 mg-180 mg) capsule (Fish Oil) Patient History Medical History Hiatal hernia Peptic ulcer Postgastric surgery syndrome Endometrial cancer D&C in -1979 Age related osteoporosis Urinary tract infection Aortic stenosis Presence of IVC filter Hyperlipidemia Surgical History History of femoropopliteal bypass S/P VAN (total abdominal hysterectomy) History of cataract surgery S/P repair of paraesophageal hernia History of incisional hernia repair S/P AAA repair Family History Mother Hypertension Social History Smoking Status: Never smoker Second Hand Exposure: No; Do You Dip or Chew Tobacco: No; Hx Alcohol Use: No Hx Substance Use: No Preferred Language: Macedonian Communication Ability: Effective Visual Impairment: Limited Hearing Ability: Use of Hearing Aid [employer] Required: No Beliefs That Will Affect Care: None marital status: Current Living Situation: Spouse Current Living Situation Comment: with current occupational status: retired and disabled How many Children do You have: 1 How many Children do You have Comment: Daughter is local, pt's and daughter able to assist with care as needed. Feels Safe at Home: Yes Diet: regular caffeine: Yes Assistive Devices: Walker and Wheelchair Review of Systems Review of Systems: All other findings negative except as noted in HPI. Physical Exam Constitutional: WD/WN, vitals as above Respiratory: normal respiratory effort, lungs clear to auscultation Cardiovascular: RRR, no murmur, no edema Gastrointestinal (Abdomen): normal bowel sounds, soft, nontender, no hepatosplenomegaly Skin: no rashes, warm and dry Results & Data Vital Signs (Past 12 Hours) Vital Signs Temp Pulse Pulse Resp BP Pulse Ox O2 Del Method 02/06/25 08:10 98.4 F 61 18 97/59 L 90 Room Air 02/06/25 03:31 98.1 F 73 18 135/93 98 Room Air 02/05/25 23:58 97.9 F 79 18 130/88 99 Room Air 02/05/25 21:48 78 Laboratory Results 02/06/25 02/06/25 02/05/25 Range/Units 07:15 06:41 22:46 Heparin Anti-Xa, Unfract 0.70 0.85 H* (0.3-0.7) IU/ml POC Glucose 100 H (70-99) mg/dl 02/05/25 02/05/25 02/05/25 Range/Units 20:56 16:14 15:27 Heparin Anti-Xa, Unfract 0.86 H* (0.3-0.7) IU/ml POC Glucose 194 H 138 H (70-99) mg/dl 02/05/25 Range/Units 12:04 Heparin Anti-Xa, Unfract (0.3-0.7) IU/ml POC Glucose 105 H (70-99) mg/dl PG Care Time/CCT Total # of Minutes Spent Total Time Spent with Patient: Total time spent is greater than 50% in coordination of care (as documented) at patient's floor/unit and/or counseling patient: Coding Level of Care Code 31422 INT INP/OBS CARE 2/55MIN Diagnoses Nausea R11.0
[2025-02-06] MEDS ORDERED: ISOSORBIDE MONO EXTENDED REL 30 MG TABCR PO SCH (09:00)
[2025-02-06] MEDS: SODIUM CHLORIDE 0.9% 500 ML IV ONE (09:04)
[2025-02-06] MEDS: SULFAMETHOXAZOLE/TRIMETHOPRIM DS 800/160MG TAB PO SCH (09:06)
--- NOTE | 2025-02-06 09:37 | Hospitalist Progress Note ---
Date of Service February 06, 2025 Assessment & Plan (1) Acute UTI: Plan: 79-year-old female with past med history significant for type 2 diabetes, CKD stage III, gout, hyperlipidemia, pancreatic cyst, congenital hiatus hernia, history of recurrent DVT, history of pulmonary embolism, primary hypercoagulable state, status post IVC filter, right bundle branch block, nonrheumatic arctic valve stenosis, hypertension, post gastric surgery syndrome, history of multiple gastric polyps, eczema, osteoporosis, who lives at home with her comes because of weakness. Patient says since about a week she is progressively getting weak. Today she was not able to put her socks on which prompted her to come to the ER. She also having some burning micturition since about a week. Also having urinary urgency. Denies any fevers. No abdominal pain. Constipated. Denies any chest pain or shortness of breath. No cough. No runny nose or sore throat. Hemodynamics are okay. Patient is wheelchair-bound at home. She can transfer herself from recliner to wheelchair. Patient also is losing weight lately. As per PCP notes in October because of weight loss there was a plan to hold Trulicity but patient is still taking Trulicity. Acute UTI Weakness possibly from UTI Empiric Rocephin -> now on cefepime d/t foot wound Gentle fluids U cultx posit. for E.coli History of recurrent DVT History of pulmonary embolism Hypercoagulable state Status post IVC filter Was on prophylactic Lovenox Lovenox dose recently adjusted to to 50 mg every 24 hours per anticoagulation clinic Now found to have acute dvt - and on IV heparin Venous doppler- 1. Acute nonocclusive DVT proximal right femoral vein. 2. Extensive acute nonocclusive DVT left common femoral vein, proximal, middle, and distal femoral vein, and popliteal vein. Discussed w/ Dr. Nielsen (hematology) on 02/05 - will need to discuss with anticoag. clinic prior to DC as pt failed NOAC before and currently on lovenox 50 daily per anticoag.clinic. Mild elevation of troponin abnormal ekg will follow serial troponin and echo Echo - LV EF 60-65%. There is moderate concentric LVH. Aortic valve is moderately calcified. Bicuspid aortic valve cannot be excluded. Moderate to severe valvular aortic stenosis. There is mild mitral regurg. Doppler findings do not suggest pulm. hypertension. Compared to study in 2023 aortic valve syst. gradient has increased. Cardiology consulted - Beta-charis placed on hold due to bradycardia. Echocardiogram demonstrated moderate to severe aortic valve stenosis with increase in aortic valve systolic gradient. Recommendations: * Repeat resting 2D transthoracic echocardiogram in 6 months for surveillance of moderate to severe aortic valve stenosis. * Hold metoprolol. * Consider restarting at reduced dose, 25 mg daily, pending review of telemetry. * Titrate losartan to 25 mg daily. * Continue aspirin, statin, and Lovenox injections as ordered. Heel wound XR of foot negative for osteo Wound Cultx posit. for Pseudomonas, Serratia , Stenotrophomonas - pt abx changed to cefepime, also added Bactrim. Will re-culture. Will discuss further w/ ID wound care and podiatry consulted Per podiatry - - Patient examined and evaluated. We discussed that this wound will take a while to heel and we should evaluate her vascular inflow while here inpatient. Arterial doppler exam for b/l LE ordered. Will help determine odds of healing the wound without further intervention. She will benefit from outpatient wound care when stable and discharged. We will continue to see her on a regular basis, as usual, when discharged as well. - Excisional wound debridement with scalpel at bedside. No necrotic, non-viable or infected tissue noted. Wound bed appears viable. - Dressed with Optifoam border gauze. Redress daily with similar. - Will follow; no further surgical intervention planned. - No need for continued hospitalization for the foot. Can be managed outpatient when stable otherwise. Arterial doppler- 1. Evidence of bilateral femoropopliteal grafting, which is patent on both sides. However, the [place] arteries on the left side are occluded and show biphasic and monophasic waveform patterns. CT angiography is suggested for further evaluation. 2. Nonocclusive thrombus in both femoral veins. 3. However, correlation with prior imaging and surgical records is recommended. Will consult with vasc. surgery (Dr. Naranjo) Weight loss, persistent nausea, poor oral intake, "butt pain" There is a plan to hold trulicity by PCP per admission note Will cont. bowel regimen Obtained CT abdomen - No obstruction. Surgical sutures are again seen along the stomach. Duodenal diverticula. Colonic diverticulosis without evidence of diverticulitis. There is a moderate-sized stool ball resulting in impaction of the rectal vault. Mild perirectal inflammation is also present. Upstream, there is a moderate stool burden in the colon. Bowel regimen upgraded including added enema GI consulted CKD stage III Presented with creatinine 1.2 which is around baseline We will follow labs Wheelchair-bound History of recurrent falls Back pain Continue lidocaine patch Gout Allopurinol Chronic diastolic CHF Not on diuretics Will monitor Hypertension On metoprolol and Benicar, metoprolol on hold as above Will monitor Diabetes Hold trulicity and metformin Sliding scale Will monitor Current HbA1c level 6.6% GERD Protonix Hyperlipidemia On statin History of PVD s/p surgery On aspirin and statin will discuss with vasc. surgery as above History of endometrial cancer S/p surgery DVT prophylaxis On Lovenox -> now on IV heparin Dispo med/tele Full code. Admission and Anticipated Discharge Date Admission Date: February 02, 2025 Subjective Pt seen in follow up of weakness initially admitted for UTI, but also found to have wound on her heel. Podiatry consulted and debrided the wound. Further work up also positive for DVT and on IV heparin. At home was on lovenox [address] Nielsen (hematology) yesterday AM and discussed with -> will need to discuss with anticoag. clinic prior to DC. Currently pt is lying in bed in NAD, she denies any chest pain or abd. pain. Yesterday reported "pain in butt" and CT abdomen pelvis was obtained - posit. stool ball -will upgrade her bowel regimen, will also add enema. Discussed with the pt and RN at the bedside. GI also consulted for significant weight loss, persistent nausea. ID consult pending Review of Systems Review of Systems: All systems reviewed & are unremarkable except as noted in Subjective Physical Exam Physical Exam: General- elderly F in NAD, Not in distress. hard of hearing Head- atraumatic Eyes- PERRL. Neck- supple, no JVD. Lungs- clear to auscultation no wheezing Heart- regular rhythm Abdomen- normal bowel sounds, soft, nontender, no distension Extremities- mild pretibial edema, no erythema seen. + small wound on heel of R foot Neuro- alert, oriented PERRL, no facial palsy; no dysarthria; moves extremities Results & Data Results & Data Vital Signs (Past 12 Hours) Vital Signs Temp Pulse Pulse Resp BP Pulse Ox O2 Del Method 02/06/25 08:10 36.9 C 61 18 97/59 L 90 Room Air 02/06/25 03:31 36.7 C 73 18 135/93 98 Room Air 02/05/25 23:58 36.6 C 79 18 130/88 99 Room Air 02/05/25 21:48 78 Laboratory Results 02/06/25 02/06/25 02/05/25 Range/Units 07:15 06:41 22:46 Heparin Anti-Xa, Unfract 0.70 0.85 H* (0.3-0.7) IU/ml POC Glucose 100 H (70-99) mg/dl 02/05/25 02/05/25 02/05/25 Range/Units 20:56 16:14 15:27 Heparin Anti-Xa, Unfract 0.86 H* (0.3-0.7) IU/ml POC Glucose 194 H 138 H (70-99) mg/dl 02/05/25 Range/Units 12:04 Heparin Anti-Xa, Unfract (0.3-0.7) IU/ml POC Glucose 105 H (70-99) mg/dl Medications Administered Current Inpatient Medications Acetaminophen (Acetaminophen 325 Mg Tab) 650 mg PO Q4H PRN PRN Reason: pain/fever Stop: 03/04/25 03:17 Last Admin: 02/05/25 19:53 Dose: 650 mg Alendronate Sodium (Alendronate Sodium 70 Mg Tab) 70 mg PO We@0630 [facility] Stop: 03/09/25 06:29 Allopurinol (Allopurinol 100 Mg Tab) 100 mg PO DAILY [facility] Stop: 03/04/25 08:59 Last Admin: 02/06/25 08:17 Dose: 100 mg Ascorbic Acid (Ascorbic Acid 500 Mg Tab) 500 mg PO DAILY [facility] Stop: 03/04/25 08:59 Last Admin: 02/06/25 08:17 Dose: 500 mg Aspirin (Aspirin 81 Mg Ectab) 81 mg PO DAILY [facility] Stop: 03/04/25 08:59 Last Admin: 02/06/25 08:18 Dose: 81 mg Atorvastatin Calcium (Atorvastatin 20 Mg Tab) 20 mg PO QAM [facility] Stop: 03/04/25 08:59 Last Admin: 02/06/25 08:16 Dose: 20 mg Colestipol HCl (Colestipol Hcl 1 Gm Tab) 1 gm PO BID@1000,2200 [facility] Stop: 03/04/25 09:59 Last Admin: 02/06/25 08:16 Dose: 1 gm Dextrose (Dextrose 50% 50 Ml Syringe) 25 - 50 ml IV UD PRN; Protocol PRN Reason: Hypoglycemia Protocol Stop: 03/04/25 03:17 Enoxaparin Sodium (Enoxaparin Inj 60 Mg/0.6 Ml Syr) 50 mg SQ Q24H [facility]; Protocol Stop: 03/04/25 06:59 Last Admin: 02/02/25 08:23 Dose: 50 mg Ferrous Sulfate (Ferrous Sulfate 325 Mg Tab) 325 mg PO BID [facility] Stop: 03/04/25 08:59 Last Admin: 02/06/25 08:18 Dose: 325 mg Glucagon (Glucagon For Inj 1 Mg Vial) 1 mg SQ UD PRN; Protocol PRN Reason: Hypoglycemia Protocol Stop: 03/04/25 03:17 Glucose (Glucose 40% Gel 15 Gm Tube) 15 - 30 gm PO UD PRN; Protocol PRN Reason: Hypoglycemia Protocol Stop: 03/04/25 03:17 Glucose (Glucose 10 Tab/Tube) 4 - 8 tab PO UD PRN; Protocol PRN Reason: Hypoglycemia Protocol Stop: 03/04/25 03:17 Heparin Sodium/Dextrose (Heparin 10546 Unit/500 Ml D5w) 25,000 units in 500 mls @ 6 mls/hr IV .Q24H [facility]; Protocol Stop: 03/05/25 02:14 Last Titration: 02/06/25 07:33 Dose: 300 units/hr, 6 mls/hr Cefepime HCl 1,000 mg/ (Dextrose) 110 mls @ 36.667 mls/hr IV Q12H [facility]; Protocol Stop: 02/11/25 11:59 Last Infusion: 02/06/25 02:59 Dose: Infused Sodium Chloride (Nss) 500 mls @ 80 mls/hr IV .Q6H15M ONE Stop: 02/06/25 14:34 Last Admin: 02/06/25 09:04 Dose: 80 mls/hr Insulin Aspart (Insulin Aspart Per Unit Charge) 0 units SC ACHS [facility] Stop: 03/04/25 07:29 Last Admin: 02/06/25 09:05 Dose: Not Given Isosorbide Mononitrate (Isosorbide [place] Extended Rel 30 Mg Tabcr) 30 mg PO QAM [facility] Stop: 03/08/25 08:59 Lidocaine (Lidocaine 5% 1 Patch) 1 patch TD DAILY PRN PRN Reason: LOWER BACK PAIN Stop: 03/04/25 04:00 Last Admin: 02/03/25 08:24 Dose: 1 patch Losartan Potassium (Losartan Potassium 25 Mg Tab) 25 mg PO DAILY [facility] Stop: 03/05/25 08:59 Last Admin: 02/04/25 08:15 Dose: 25 mg Metoprolol Tartrate (Metoprolol Tartrate 25 Mg Tab) 25 mg PO BID [facility] Stop: 03/04/25 08:59 Last Admin: 02/02/25 10:01 Dose: Not Given Miscellaneous (Carbohydrates For Hypoglycemia ) 15 - 30 gm PO UD PRN PRN Reason: Hypoglycemia Protocol Stop: 03/04/25 03:17 Last Admin: 02/02/25 17:20 Dose: 15 gm Miscellaneous (Remove Lidoderm Patch) 1 each N/A DAILY@2100 [facility] Stop: 03/04/25 20:59 Last Admin: 02/05/25 21:38 Dose: Not Given Pantoprazole Sodium (Pantoprazole 40 Mg Tab) 40 mg PO DAILY [facility] Stop: 03/04/25 08:59 Last Admin: 02/06/25 08:18 Dose: 40 mg Polyethylene Glycol (Polyethylene (Miralax) 17 Gm Pack) 17 gm PO TID [facility] Stop: 03/08/25 07:44 Last Admin: 02/06/25 08:15 Dose: 17 gm Sennosides (Senna 8.6 Mg Tab) 8.6 mg PO QAM [facility] Stop: 03/07/25 14:44 Last Admin: 02/06/25 08:19 Dose: 8.6 mg Trimethoprim/Sulfamethoxazole (Sulfamethoxazole/Trimethoprim Ds 800/160mg Tab) 1 tab PO DAILY [facility] Stop: 02/13/25 08:59 Last Admin: 02/06/25 09:06 Dose: Not Given Trimethoprim/Sulfamethoxazole (Sulfa/Trimeth 400/80mg Tab) 1 tab PO DAILY [facility] Stop: 02/13/25 08:59 Last Admin: 02/06/25 08:15 Dose: 1 tab Vitamin D (Cholecalciferol 25 Mcg (1000 Units) Tab) 50 mcg PO DAILY [facility] Stop: 03/04/25 08:59 Last Admin: 02/06/25 08:17 Dose: 50 mcg
--- NOTE | 2025-02-06 10:07 | Infectious Disease Consult ---
Date of Service February 06, 2025 Telehealth Information I performed this visit using a real-time telehealth connection between my location and the patients location ([facility]). After connecting through interactive tele-video, patient was identified by name and date of and/or wristband check.Patient (or authorized healthcare senior sales representative) was informed that this was a telemedicine visit and it was being conducted confidentially over secure lines. My office door was closed and no one else was present in the room with me.Patient (or authorized healthcare senior sales representative) provided consent to proceed with the visit, expressed an understanding of privacy and security of the telemedicine visit, and gave permission to have a hospital senior sales representative in the room in order to assist with the visit and to conduct portions of the visit, as needed. I informed the patient (or authorized healthcare senior sales representative) that I reviewed their record and presented the opportunity for them to ask any questions regarding the visit today. The patient agreed to participate. poss. bacteremia, wound infection Assessment & Plan (1) Chronic ulcer of right foot with fat layer exposed: Plan: Patient who presented with weakness and was found to have a chronic right diabetic foot ulcer s/p bedside debridement with wound cultures that have grown pseudomonas,serratia,stenotrophomonas anaerococcus and she is currently on cefepime and bactrim Plan Recommend obtaining a MRI of her right foot to rule out osteomyelitis and since the serratia from 02/02 was intermediate to cefepime would recommend switching to meropenem and continuing bactrim for the stenotrophomonas pending results of MRI .If the MRI reveals osteomyelitis can treat with ciprofloxacin(high dose) and bactrim for 3 weeks if no osteomyelitis is found would recommend treating for 10-14 days(no need for high dose ciprofloxacin) Thank you for allowing us to participate in the care of this patient ID will sign off History of Present Illness History of Present Illness 79 y/o F PMHx type 2 diabetes, CKD stage III, gout, hyperlipidemia, pancreatic cyst, congenital hiatus hernia, history of recurrent DVT, history of pulmonary embolism, primary hypercoagulable state, status post IVC filter, right bundle branch block, nonrheumatic arctic valve stenosis, hypertension, post gastric surgery syndrome, history of multiple gastric polyps, eczema, osteoporosis, presented with weakness for the past 7 days .She reports having burning micturition for about a week urinary urgency.Patient was also found to have chronic right diabetic ulcer and her wound cultures have grown pseudomonas ,serratia and stenotrophomonas on cefepime and bactrim Allergies Allergy/AdvReac Type Severity Reaction Status Date / Time No Known Allergies Allergy Verified 02/02/25 00:03 Home Medications Medication Instructions Recorded Confirmed Type triamcinolone acetonide 0.1 % 1 appln topical BID PRN Skin 04/20/19 02/02/25 History topical cream Irritation alendronate 70 mg tablet 70 mg PO WK #4 tabs 11/25/23 02/02/25 Rx allopurinol 100 mg tablet 100 mg PO DAILY #30 tabs 11/25/23 02/02/25 Rx aspirin 81 mg tablet,delayed 81 mg PO DAILY #30 tabs 11/25/23 02/02/25 Rx release cholecalciferol (vitamin D3) 50 2,000 units PO DAILY #30 tabs 11/25/23 02/02/25 Rx mcg (2,000 unit) tablet colestipol 1 gram tablet 1 gm PO BID #60 tabs 11/25/23 02/02/25 Rx dulaglutide 1.5 mg/0.5 mL 1.5 mg (0.5 mL) subcut WK #2 mL 11/25/23 02/02/25 Rx subcutaneous pen injector (Trulicity) metformin 500 mg tablet,extended 500 mg PO BID #60 tabs 11/25/23 02/02/25 Rx release 24 hr metoprolol tartrate 25 mg tablet 25 mg PO BID #60 tabs 11/25/23 02/02/25 Rx pantoprazole 20 mg tablet,delayed 20 mg PO DAILY #30 tabs 11/25/23 02/02/25 Rx release ascorbic acid (vitamin C) 500 mg 500 mg PO DAILY 02/02/25 02/02/25 History tablet (Vitamin C) atorvastatin 20 mg tablet 20 mg PO QAM 02/02/25 02/02/25 History enoxaparin 60 mg/0.6 mL 50 mg subcut Q24H 02/02/25 02/02/25 History subcutaneous syringe ferrous sulfate 325 mg (65 mg 325 mg PO BID 02/02/25 02/02/25 History iron) tablet lidocaine 4 % topical patch 1 patch topical DAILY PRN LOWER 02/02/25 02/02/25 History BACK PAIN olmesartan 5 mg tablet (Benicar) 5 mg PO DAILY 02/02/25 02/02/25 History omega 2-say-fvu-fish oil 1,000 mg 1 cap PO DAILY 02/02/25 02/02/25 History (120 mg-180 mg) capsule (Fish Oil) Patient History Medical History Hiatal hernia Peptic ulcer Postgastric surgery syndrome Endometrial cancer D&C in -1979 Age related osteoporosis Urinary tract infection Aortic stenosis Presence of IVC filter Hyperlipidemia Surgical History History of femoropopliteal bypass S/P VAN (total abdominal hysterectomy) History of cataract surgery S/P repair of paraesophageal hernia History of incisional hernia repair S/P AAA repair Family History Mother Hypertension Social History Smoking Status: Never smoker Second Hand Exposure: No; Do You Dip or Chew Tobacco: No; Hx Alcohol Use: No Hx Substance Use: No Preferred Language: Sinhala Communication Ability: Effective Visual Impairment: Limited Hearing Ability: Use of Hearing Aid 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 Feels Safe at Home: Yes Diet: regular caffeine: Yes Assistive Devices: Walker and Wheelchair Review of Systems No respiratory distress chronic diabetic ulcer to right foot Physical Exam Awake alert oriented Results & Data Vital Signs (Past 12 Hours) Vital Signs Temp Pulse Pulse Resp BP Pulse Ox O2 Del Method 02/06/25 08:10 36.9 C 61 18 97/59 L 90 Room Air 02/06/25 08:00 79 02/06/25 03:31 36.7 C 73 18 135/93 98 Room Air 02/05/25 23:58 36.6 C 79 18 130/88 99 Room Air Laboratory Results Marlin torres RX M.I.C. RX M.I.C. --- --------- --- --------- Amikacin S <=16 S <=16 Aztreonam R >16 Cefepime S 8 S <=2 Cefotaxime S <=2 Ceftazidime S 4 Ceftriaxone S <=1 Ciprofloxacin S <=0.25 S <=0.25 Ertapenem S <=0.5 Gentamicin S <=2 Levofloxacin S <=0.5 S <=0.5 Meropenem S <=1 S <=1 Tobramycin S <=2 S <=2 Trimeth/Sulfa S <=0.5/9.5 Aero/Silvia Cult Preliminary 02/06/25 Organism 1 Pseudomonas aeruginosa Quantity Moderate Sens Sensitivities to Follow Organism 2 Serratia marcescens Quantity Moderate Sens Sensitivities to Follow Organism 3 Stenotrophomonas maltophilia Quantity Moderate Sens Sensitivities to Follow Organism 4 Anaerococcus vaginalis Quantity Moderate Sens No Sensitivities to Follow PLUS MODERATE COUNTS OF MIXED ANAEROBIC MICROBIOTA P aerugino S marcesc Steno malt RX M.I.C. RX M.I.C. RX M.I.C. --- --------- --- --------- --- --------- Amikacin S <=16 S <=16 Aztreonam S <=4 Cefepime S <=2 I 4 Cefotaxime R >32 Ceftazidime S 4 Ceftriaxone R >32 Ciprofloxacin S <=0.25 S <=0.25 Ertapenem S <=0.5 Gentamicin S <=2 Levofloxacin S <=0.5 S <=0.5 Meropenem S <=1 S <=1 Tobramycin S <=2 S <=2 Trimeth/Sulfa S <=0.5/9.5 S <=0.5/9.5 Pip/Tazo S <=8 R >64 Serratia marcescens: Negative SHEY 56 Cefepime result is shown as I-Intermediate According to CLSI the interpretation should be SDD Susceptible-dose dependent. SDD- recommend target dose = 2g IV q8h S = SENSITIVE I = INTERMEDIATE R = RESISTANT Pip/Tazo R >64 S <=8 S = SENSITIVE I = INTERMEDIATE R = RESISTANT Diagnostic Findings IMPRESSION: 1. Diffuse soft tissue edema with no acute bony abnormality identified. 2. A heel ulcer/wound is noted. There is no clear radiographic evidence of osteomyelitis. 3. Osteopenia with postsurgical and degenerative change as above.
--- NOTE | 2025-02-06 10:52 | Cardiology Progress Note ---
Date of Service February 06, 2025 Assessment & Plan (1) Chest pain at rest: (2) Dizziness: (3) Elevated troponin: (4) Aortic stenosis: Plan 79 year old female admitted on 02/01 with weakness, UTI, marked unplanned weight loss, earlier satiety, hypertensive urgency. Cardiology initially consulted secondary to elevated high sensitivity troponin likely secondary to hypertensive urgency. Mild bradycardia resulted in discontinuation of prior to arrival Lopressor (25 BID) Repeat cardiology evaluation requested on 02/05/2025 secondary to chest discomfort, burning sensation over right sternoclavicular area upon awaking. EKG without acute change. High-sensitivity troponin 15.3, downtrending. Telemetry benign - sinus with a first-degree AV block Recommendations: * Continue ASA and statin * Continue to hold beta-charis therapy * Imdur never received. * Further evaluation of noncardiac complaints as per Hospitalist * Consider Palliative Care Consultation * Please contact with any Cardiac questions or concerns. Admission and Anticipated Discharge Date Admission Date: February 02, 2025 Supervising Physician Co-Signing Physician Notes Patient was seen and personally examined. Full assessment and plan as by advanced provider as above. Care and management discussed and personally endorsed 79-year-old female admitted with weakness. Plan as previously outlined continue to hold beta-charis. No further cardiac complaints. Complains of anorexia and poor p.o. intake. Extremely frail on examination No further cardiac indications for IV heparin Will require DVT prophylaxis given past DVT Consider reduction in nonnecessary therapies given anorexia including vitamin C, vitamin D, iron supplements Contact with further questions Subjective Patient seen and examined earlier this morning. Nurse at bedside. + Headache. Patient did not receive isosorbide; order held by hospitalist. Heel pain, diffuse pain. Denies chest pain, palpitations, or shortness of breath. Review of Systems Review of Systems: Complete Review of Systems is as stated above, negative, or noncontributory. Physical Exam Physical Exam: General: NAD. HENT: Normocephalic. Atraumatic. Eyes: PER. Conjunctiva pink, sclera clear. Neck: Transmitted systolic murmur. No JVD. Heart: RRR, 66 bpm. Grade II/ systolic ejection murmur. No diastolic murmur. Lungs: Clear to auscultation. No wheeze. no rales. Abdomen: +BS. Soft. Nontender. No masses or organomegaly. Extremities: No edema. Limited neurological examination is without focal deficits. Results & Data Vital Signs (Past 12 Hours) Vital Signs Temp Pulse Pulse Resp BP Pulse Ox O2 Del Method 02/06/25 08:10 36.9 C 61 18 97/59 L 90 Room Air 02/06/25 08:00 79 02/06/25 03:31 36.7 C 73 18 135/93 98 Room Air 02/05/25 23:58 36.6 C 79 18 130/88 99 Room Air Laboratory Results Intake and Output 02/05/25 02/06/25 02/06/25 22:59 06:59 14:59 Intake Total 149.333 / 707.000 197.9 / 707.000 4 / 4 Output Total 350 / 850 200 / 850 Balance -200.667 / -143.000 -2.1 / -143.000 4 / 4 Intake: IV 149.333 / 707.000 197.9 / 707.000 4 / 4 Cefepime 2,000 mg In Dextrose 5 100 / 100 % Mini-B 100 ml @ 33.333 mls/hr IV Q12H [facility] Rx#:[id number] Cefepime 1,000 mg In Dextrose 5 110 / 110 % 100 ml @ 36.667 mls/hr IV Q12H [facility] Rx#:[id number] Heparin 38190 Unit/500 ml D5w 49.333 / 497.000 87.9 / 497.000 4 / 4 25,000 units In 500 ml @ 300 UNITS/HR 6 mls/hr IV .Q24H [facility] Rx#:[id number] Output: Urine Amount (Catheter) 350 / 850 200 / 850 [place]/Indwelling 350 / 850 200 / 850 Other: Weight 45.949 kg Weight Measurement Method Built in [facility] Diagnostic Findings Telemetry: Sinus rhythm with a first degree AV block, heart rates in the 60's and 70's. PG Care Time/CCT Total # of Minutes Spent Total Time Spent with Patient: Total time spent is greater than 50% in coordination of care (as documented) at patient's floor/unit and/or counseling patient: Coding Level of Care Code 31622 SUB INP/OBS CARE 2/35MIN Diagnoses Chest pain at rest R07.9 Dizziness R42 Elevated troponin R79.89 Nonrheumatic aortic valve stenosis I35.0 Cardiac valve disease etiology: nonrheumatic (4) Aortic stenosis Cardiac valve disease etiology: nonrheumatic Qualified Code(s): I35.0 - Nonrheumatic aortic (valve) stenosis
--- NOTE | 2025-02-06 12:30 | Podiatry Progress Note ---
Date of Service February 06, 2025 Assessment & Plan (1) Bilateral edema of lower extremity: (2) Diabetic peripheral neuropathy associated with type 2 diabetes mellitus: (3) Diabetic ulcer of right foot: (4) Chronic ulcer of right foot with fat layer exposed: Plan - Patient examined and evaluated. Wound evaluated and redressed with optifoam gauze. Applied offloading heel pressure ulcer prevention boots - No new concerns, wound is stable. No evidence of local infection. - Once stable per medicine, can be discharged home with fdc outpatient follow-up. - If she fails to improve with treatment of her UTI and the belief becomes her foot wound is causing some of her acute concerns, a biopsy could be obtained surgically. - Podiatry will sign off for now, please reconsult as needed. Admission and Anticipated Discharge Date Admission Date: February 02, 2025 Supervising Physician Co-Signing Physician Notes Patient was seen and personally examined. Full assessment and plan as by advanced provider as above. Care and management discussed and personally endorsed 79-year-old female admitted with weakness. Plan as previously outlined continue to hold beta-charis. No further cardiac complaints. Complains of anorexia and poor p.o. intake. Extremely frail on examination No further cardiac indications for IV heparin Will require DVT prophylaxis given past DVT Consider reduction in nonnecessary therapies given anorexia including vitamin C, vitamin D, iron supplements Contact with further questions Subjective Patient seen and examined this morning at bedside. Reports feeling confused, but patient is alert and oriented to person, place, and time. Heel pain, diffuse pain. Denies chest pain, palpitations, or shortness of breath. Review of Systems Constitutional: no fever, no chills, no fatigue and no weakness Eyes: no problem reported Ear, Nose, Mouth, Throat: no problem reported Respiratory: no problem reported Cardiovascular: + edema; no problem reported Gastrointestinal: no nausea, no vomiting and no problem reported Genitourinary: no problem reported Musculoskeletal: no problem reported Integumentary: + skin ulcer, + wounds and + erythema Neurologic: + loss of sensation, + numbness and + pa resthesia; no generalized weakness Psychiatric: no problem reported Physical Exam Physical Exam: Lower extremity focused exam: DP pulses diminished, PT pulses nonpalpable. CFT brisk to the digits. B/L Lower extremity is cool to cold proximal to distal. Skin atrophic. Nails dystrophic. Well circumscribed 1 cm ulceration noted to plantar right heel. This is neuropathic in nature with a 100% granular base after sharp debridement. No deep probing noted; no extension to bone or tendons. No tunneling or undermining of wound margins. No purulence. Minimal serosanguineous drainage on bandage. Foot is rigidly pronated with rigid flatfoot deformity, longstanding and unchanged. No new suspicion of collapse. Constitutional: WD/WN, vitals as above + ill appearing and + thin Eyes: PERRL, conjunctivae normal, anicteric sclerae ENMT: external ear and nose normal, oropharynx normal Neck: trachea midline, no thyromegaly normal visual inspection Respiratory: normal respiratory effort; no respiratory distress Cardiovascular: Rate/Rhythm: regular rate and regular rhythm Vessels: + posterior tibial pulses abnormal and + dorsalis pedis pulses abnormal Chest (Breasts): Chest: normal inspection of chest Gastrointestinal (Abdomen): Inspection/Auscultation: abdomen normal to inspection Percussion/Palpation: + abdomen tender and abdomen soft Musculoskeletal: no cyanosis or clubbing, extremities motor strength 5/5 Head/Neck/Chest: normocephalic and head atraumatic Extremities: + abnormal strength, + abnormal muscle tone, + lower leg abnormality and + foot abnormality Ankle: + deformity; no skin erythema and no ecchymosis Skin: + turgor decreased, + ulcer, + skin atro phy, + nail abnormality and + nails dystrophic; no erythema and no eschar Neurologic: awake; + abnormal touch/pain/proprioception, + abnormal sensation to monofilament and no focal motor deficits Psychiatric: A+Ox3, euthymic affect Results & Data Results & Data Vital Signs (Past 12 Hours) Vital Signs Temp Pulse Pulse Resp BP Pulse Ox O2 Del Method 02/06/25 11:50 36.5 C 70 18 167/98 H 99 Room Air 02/06/25 08:10 36.9 C 61 18 97/59 L 90 Room Air 02/06/25 08:00 79 02/06/25 03:31 36.7 C 73 18 135/93 98 Room Air (3) Diabetic ulcer of right foot Diabetes mellitus type: type 2 Diabetic foot ulcer location: heel Non- pressure ulcer stage: limited to breakdown of skin Qualified Code(s): E11.621 - Type 2 diabetes mellitus with foot ulcer; L97.411 - Non-pressure chronic ulcer of right heel and midfoot limited to breakdown of skin
--- NOTE | 2025-02-06 13:16 | Vascular Medicine Consultation ---
Date of Consultation February 06, 2025 Assessment & Plan (1) Chronic ulcer of right foot with fat layer exposed: Clear to me at this point that she has significant peripheral vascular disease that merits further investigation at this point. We need to obtain the outside records to fully understand what reconstructions if any she has had. Clearly she has had evidence of prior deep venous thrombosis and is anticoagulated for this but this is not relevant to any issues around arterial ischemia. It would be helpful to obtain an ankle-brachial index as well but I think the first step is to find out exactly what procedures she may have had done in the past. I also saw a notation that she underwent aortic aneurysm repair but there is no evidence on prior CT scans or from incisions that she has had any kind of open or endovascular aneurysm repair. Full recommendations to follow once we are able to obtain the outside records. History of Present Illness Reason for Consultation: Abnormal vascular lab study Attending Physician: Mario Campbell MD History of Present Illness Asked to evaluate this 79-year-old woman who was admitted with generalized weakness. Due to some slow healing wounds on her lower extremities the lower extremity arterial study was obtained February 02, 2025 which suggested the presence of patent bilateral femoral to popliteal bypass grafts. Patient has a known history of extensive deep venous thrombosis and takes daily enoxaparin injections. She states she has been compliant with this. She was ad mitted February 02, 2025 for progressive weakness. She believes she underwent some kind of lower extremity bypass graft surgery in [place] a year or so ago and we are in the process of trying to obtain these records. It is difficult to assess any level of exertional leg pain given her overall weakness and limited ambulation. Allergies Allergy/AdvReac Type Severity Reaction Status Date / Time No Known Allergies Allergy Verified 02/02/25 00:03 Home Medications Medication Instructions Recorded Confirmed Type triamcinolone acetonide 0.1 % 1 appln topical BID PRN Skin 04/20/19 02/02/25 History topical cream Irritation alendronate 70 mg tablet 70 mg PO WK #4 tabs 11/25/23 02/02/25 Rx allopurinol 100 mg tablet 100 mg PO DAILY #30 tabs 11/25/23 02/02/25 Rx aspirin 81 mg tablet,delayed 81 mg PO DAILY #30 tabs 11/25/23 02/02/25 Rx release cholecalciferol (vitamin D3) 50 2,000 units PO DAILY #30 tabs 11/25/23 02/02/25 Rx mcg (2,000 unit) tablet colestipol 1 gram tablet 1 gm PO BID #60 tabs 11/25/23 02/02/25 Rx dulaglutide 1.5 mg/0.5 mL 1.5 mg (0.5 mL) subcut WK #2 mL 11/25/23 02/02/25 Rx subcutaneous pen injector (Trulicity) metformin 500 mg tablet,extended 500 mg PO BID #60 tabs 11/25/23 02/02/25 Rx release 24 hr metoprolol tartrate 25 mg tablet 25 mg PO BID #60 tabs 11/25/23 02/02/25 Rx pantoprazole 20 mg tablet,delayed 20 mg PO DAILY #30 tabs 11/25/23 02/02/25 Rx release ascorbic acid (vitamin C) 500 mg 500 mg PO DAILY 02/02/25 02/02/25 History tablet (Vitamin C) atorvastatin 20 mg tablet 20 mg PO QAM 02/02/25 02/02/25 History enoxaparin 60 mg/0.6 mL 50 mg subcut Q24H 02/02/25 02/02/25 History subcutaneous syringe ferrous sulfate 325 mg (65 mg 325 mg PO BID 02/02/25 02/02/25 History iron) tablet lidocaine 4 % topical patch 1 patch topical DAILY PRN LOWER 02/02/25 02/02/25 History BACK PAIN olmesartan 5 mg tablet (Benicar) 5 mg PO DAILY 02/02/25 02/02/25 History omega 9-ysz-rhf-fish oil 1,000 mg 1 cap PO DAILY 02/02/25 02/02/25 History (120 mg-180 mg) capsule (Fish Oil) Patient History Medical History Hiatal hernia Peptic ulcer Postgastric surgery syndrome Endometrial cancer D&C in -1979 Age related osteoporosis Urinary tract infection Aortic stenosis Presence of IVC filter Hyperlipidemia Surgical History History of femoropopliteal bypass S/P VAN (total abdominal hysterectomy) History of cataract surgery S/P repair of paraesophageal hernia History of incisional hernia repair S/P AAA repair Family History Mother Hypertension Social History Smoking Status: Never smoker Second Hand Exposure: No; Do You Dip or Chew Tobacco: No; Hx Alcohol Use: No Hx Substance Use: No Preferred Language: Kosovan Communication Ability: Effective Visual Impairment: Limited Hearing Ability: Use of Hearing Aid Circular Knitter Required: No Beliefs That Will Affect Care: None marital status: Current Living Situation: Spouse Current Living Situation Comment: with current occupational status: retired and disabled How many Children do You have: 1 How many Children do You have Comment: Daughter is local, pt's and daughter able to assist with care as needed. Feels Safe at Home: Yes Diet: regular caffeine: Yes Assistive Devices: Walker and Wheelchair Physical Exam Physical Exam: Relevant physical exam includes a soft abdomen. Femoral pulses are strong and equal bilaterally. I have trouble feeling her radial pulses. I cannot feel any pulses in her feet. There is what appears to be a small incision in the distal left thigh that could be consistent with prior bypass grafting. She also says she has had a broken ankle and she has bilateral Charcot ankle joints. There is a heel ulceration that is covered on the right heel. I did not take the bandage off. Results & Data Vital Signs (Past 12 Hours) Vital Signs Temp Pulse Pulse Resp BP Pulse Ox O2 Del Method 02/06/25 11:50 36.5 C 70 18 167/98 H 99 Room Air 02/06/25 08:10 36.9 C 61 18 97/59 L 90 Room Air 02/06/25 08:00 79 02/06/25 03:31 36.7 C 73 18 135/93 98 Room Air PG Care Time/CCT Total # of Minutes Spent Total Time Spent with Patient: Total time spent is greater than 50% in coordination of care (as documented) at patient's floor/unit and/or counseling patient: Coding Level of Care Code 93764 IN/OBS CONSULT LVL 3,45M Diagnoses Chronic ulcer of right foot with fat layer exposed L97.512
[2025-02-06] MEDS: METOCLOPRAMIDE HCL INJ 5 MG/ML 2 ML VIAL IV SCH (17:12)
[2025-02-07] MEDS: ALENDRONATE SODIUM 70 MG TAB PO SCH (05:41)
[2025-02-07 06:55] LABS: Hematocrit (blood only) 33.0 % (37.0-47.0); Hemoglobin 11.3 g/dl (12.0-16.0); Immature Granulocytes # (auto) 0.05 K/uL (0.01-0.20); Immature Granulocytes % (auto) 0.4 %; Mean Corpuscular Hemoglobin 32.2 pg (25.0-34.0); Mean Corpuscular Volume 94.0 fL (80.0-100.0); Platelet Count 333 K/uL (130-400); RDW Standard Deviation 51.0 fL (36.4-46.3); Red Blood Count 3.51 M/uL (4.20-5.40); White Blood Count 11.96 K/ul (4.8-10.8)
[2025-02-07 07:10] LABS: Anion Gap 7.0 (3-11); Blood Urea Nitrogen 46.0 mg/dl (6-23); Calcium 8.6 mg/dl (8.6-10.3); Carbon Dioxide 20.0 mmol/L (21-32); Chloride 103.0 mmol/L (98-107); Creatinine Clr Calc Pharmacy 23.0 ml/min; Glucose 115.0 mg/dl (70-99(Fasting)); Magnesium 2.0 mg/dl (1.7-2.4); Potassium 5.8 mmol/L (3.5-5.1); Sodium 130.0 mmol/L (136-145)
[2025-02-07 07:16] LABS: ANTI-Xa, UFH(UnfractionatedHep 0.61 IU/ml (0.3-0.7)
--- NOTE | 2025-02-07 09:32 | Gastroenterology Progress Note ---
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 Constipation - CT w/ impaction, moderate stool burden in the colon - Miralax 1 capful twice daily 2. Nausea, history of gastroparesis - She previously followed with [facility] for presumed gastroparesis - Tiral of low fose IV reglan [facility] - Recommend she re-establish as OP w/ her [facility] team - Gastroparesis diet as tolerated - Consider trial off of Trulicity 3. Weight loss - Recommend she have OP EGD/Colonoscopy with her established GI team at [facility] I spent a total of 40 minutes on the date of service in review of patient's record, and previously obtained information in person and appropriate medical visit, discussion and education of plan, with patient and/or caregiver, placing orders for tests/referral/procedures as medically necessary and documentation of pertinent clinical information in patient's medical records for their visit today. Admission and Anticipated Discharge Date Admission Date: February 02, 2025 Supervising Physician Co-Signing Physician Notes No further nausea and vomiting may some improvement in her nausea with Reglan. Main complaint is weakness and dizziness. On the off chance we should probably just check cortisol to exclude adrenal insufficiency. Continue Reglan for now MiraLAX for constipation. Will follow. Subjective Pt was seen and evaluated, chart reviewed. Generally feels unwell this AM. She is weak, tired, dizzy. Nausea is ongoing but slightly improved from prior. Moving bowels. No black or bloody stools. No fever, chills, CP, SOB. Review of Systems Review of Systems: All other findings negative except as noted in HPI. Physical Exam Constitutional: WD/WN, vitals as above Respiratory: normal respiratory effort, lungs clear to auscultation Cardiovascular: RRR, no murmur, no edema Gastrointestinal (Abdomen): normal bowel sounds, soft, nontender, no hepatosplenomegaly Skin: no rashes, warm and dry Results & Data Results & Data Vital Signs (Past 12 Hours) Vital Signs Temp Pulse Pulse Resp BP Pulse Ox O2 Del Method 02/07/25 07:32 98.1 F 87 18 141/94 H 97 Room Air 02/07/25 07:23 92 H 02/07/25 03:17 98.4 F 68 20 152/96 H 90 Room Air 02/07/25 00:14 97.9 F 79 20 150/92 H 97 Room Air 02/06/25 21:50 75 Laboratory Results 02/07/25 02/07/25 02/06/25 Range/Units 08:00 06:11 20:38 WBC 11.96 H (4.8-10.8) K/ul RBC 3.51 L (4.20-5.40) M/uL Hgb 11.3 L (12.0-16.0) g/dl Hct 33.0 L (37.0-47.0) % MCV 94.0 (80.0-100.0) fL MCH 32.2 (25.0-34.0) pg MCHC 34.2 (32.0-36.0) g/dL RDW Std Deviation 51.0 H (36.4-46.3) fL RDW Coeff of Beka 14.8 H (11.5-14.5) % Plt Count 333 (130-400) K/uL MPV 11.5 (9.4-12.4) fL Immature Gran % (Auto) 0.4 % Neut % (Auto) 87.0 % Lymph % (Auto) 6.7 % Louisa % (Auto) 4.9 % Eos % (Auto) 0.2 % Baso % (Auto) 0.8 % Neut # (Auto) 10.40 H (1.40-6.50) K/uL Lymph # (Auto) 0.80 L (1.20-3.40) K/uL Louisa # (Auto) 0.59 (0.11-0.59) K/uL Eos # (Auto) 0.02 (0.00-0.50) K/uL Baso # (Auto) 0.10 (0.00-0.20) K/uL Immature Gran # (Auto) 0.05 (0.01-0.20) K/uL Heparin Anti-Xa, Unfract 0.61 (0.3-0.7) IU/ml Sodium 130 L (136-145) mmol/L Potassium 5.8 H (3.5-5.1) mmol/L Chloride 103 (98-107) mmol/L Carbon Dioxide 20 L (21-32) mmol/L Anion Gap 7 (3-11) BUN 46 H (6-23) mg/dl Creatinine 1.57 H D (0.6-1.2) mg/dl Est Cr Clr Drug Dosing 23.0 ml/min eGFR 33.77 BUN/Creatinine Ratio 29.3 H (10-20) Glucose 115 H (70-99(Fasting)) mg/dl POC Glucose 157 H 183 H (70-99) mg/dl Calcium 8.6 (8.6-10.3) mg/dl Phosphorus 2.7 (2.5-4.9) mg/dl Magnesium 2.0 (1.7-2.4) mg/dl 02/06/25 02/06/25 Range/Units 16:44 11:52 WBC (4.8-10.8) K/ul RBC (4.20-5.40) M/uL Hgb (12.0-16.0) g/dl Hct (37.0-47.0) % MCV (80.0-100.0) fL MCH (25.0-34.0) pg MCHC (32.0-36.0) g/dL RDW Std Deviation (36.4-46.3) fL RDW Coeff of Beka (11.5-14.5) % Plt Count (130-400) K/uL MPV (9.4-12.4) fL Immature Gran % (Auto) % Neut % (Auto) % Lymph % (Auto) % Louisa % (Auto) % Eos % (Auto) % Baso % (Auto) % Neut # (Auto) (1.40-6.50) K/uL Lymph # (Auto) (1.20-3.40) K/uL Louisa # (Auto) (0.11-0.59) K/uL Eos # (Auto) (0.00-0.50) K/uL Baso # (Auto) (0.00-0.20) K/uL Immature Gran # (Auto) (0.01-0.20) K/uL Heparin Anti-Xa, Unfract (0.3-0.7) IU/ml Sodium (136-145) mmol/L Potassium (3.5-5.1) mmol/L Chloride (98-107) mmol/L Carbon Dioxide (21-32) mmol/L Anion Gap (3-11) BUN (6-23) mg/dl Creatinine (0.6-1.2) mg/dl Est Cr Clr Drug Dosing ml/min eGFR BUN/Creatinine Ratio (10-20) Glucose (70-99(Fasting)) mg/dl POC Glucose 89 117 H (70-99) mg/dl Calcium (8.6-10.3) mg/dl Phosphorus (2.5-4.9) mg/dl Magnesium (1.7-2.4) mg/dl PG Care Time/CCT Total # of Minutes Spent Total Time Spent with Patient: Total time spent is greater than 50% in coordination of care (as documented) at patient's floor/unit and/or counseling patient: Coding Level of Care Code 78663 SUB INP/OBS CARE 2/35MIN Diagnoses Nausea R11.0
--- NOTE | 2025-02-07 16:09 | Vascular Medicine ProgressNote ---
Date of Service February 07, 2025 Assessment & Plan (1) Chronic ulcer of right foot with fat layer exposed: Plan: The only outside records from [facility] that we were able to obtain relates to drainage of a right groin hematoma over 10 years ago. We were not able to find anything to suggest she has undergone prior femoral-popliteal artery bypass grafting. Will continue to look. In the meantime, can obtain ABIs to assess overall arterial flow to the feet and help provide prognostic information about wound healing. No new recommendations from my standpoint. Admission and Anticipated Discharge Date Admission Date: February 02, 2025 Subjective Feels a bit more tired this morning. No other significant clinical change. Results & Data Vital Signs (Past 12 Hours) Vital Signs Temp Pulse Pulse Resp BP Pulse Ox O2 Del Method 02/07/25 15:04 36.8 C 76 18 149/91 H 96 Room Air 02/07/25 15:00 82 02/07/25 11:21 37.1 C 85 20 133/81 93 Room Air 02/07/25 09:45 Room Air 02/07/25 07:32 36.7 C 87 18 141/94 H 97 Room Air 02/07/25 07:23 92 H PG Care Time/CCT Total # of Minutes Spent Total Time Spent with Patient: Total time spent is greater than 50% in coordination of care (as documented) at patient's floor/unit and/or counseling patient: Coding Level of Care Code 01121 SUB INP/OBS CARE 08/12MIN Diagnoses Chronic ulcer of right foot with fat layer exposed L97.512
[2025-02-07 16:29] LABS: Anion Gap 8.0 (3-11); Blood Urea Nitrogen 47.0 mg/dl (6-23); Calcium 9.0 mg/dl (8.6-10.3); Carbon Dioxide 19.0 mmol/L (21-32); Chloride 102.0 mmol/L (98-107); Creatinine Clr Calc Pharmacy 20.9 ml/min; Glucose 90.0 mg/dl (70-99(Fasting)); Potassium 5.8 mmol/L (3.5-5.1); Sodium 129.0 mmol/L (136-145)
--- NOTE | 2025-02-07 16:48 | Hospitalist Progress Note ---
Date of Service February 07, 2025 Assessment & Plan (1) Acute UTI: Plan: In summary, 79-year-old female with past history significant for type 2 diabetes, CKD stage III, gout, hyperlipidemia, pancreatic cyst, congenital hiatus hernia, history of recurrent DVT, history of pulmonary embolism, primary hypercoagulable state, status post IVC filter, right bundle branch block, nonrheumatic arctic valve stenosis, hypertension, post gastric surgery syndrome, history of multiple gastric polyps, eczema, osteoporosis, who lives at home with her admitted for generalized weakness and UTI. Acute UTI Weakness possibly from UTI Empiric Rocephin -> now on cefepime d/t foot wound UC pos for E.coli History of recurrent DVT History of pulmonary embolism Hypercoagulable state Status post IVC filter Was on prophylactic Lovenox Lovenox dose recently adjusted to to 50 mg every 24 hours per anticoagulation clinic Now found to have acute dvt - and on IV heparin Venous doppler- Acute nonocclusive DVT proximal right femoral vein.. Extensive acute nonocclusive DVT left common femoral vein, proximal, middle, and distal femoral vein, and popliteal vein. Discussed w/ Dr. Nielsen (hematology) on 02/05 - will need to discuss with anticoag. clinic prior to DC as pt failed NOAC before and currently on lovenox 50 daily per anticoag.clinic. Mild elevation of troponin abnormal ekg will follow serial troponin and echo Echo - LV EF 60-65%. There is moderate concentric LVH. Aortic valve is moderately calcified. Bicuspid aortic valve cannot be excluded. Moderate to severe valvular aortic stenosis. There is mild mitral regurg. Doppler findings do not suggest pulm. hypertension. Compared to study in 2023 aortic valve syst. gradient has increased. Cardiology consulted - Beta-charis placed on hold due to bradycardia. Echocardiogram demonstrated moderate to severe aortic valve stenosis with increase in aortic valve systolic gradient. Recommendations: * Repeat resting 2D transthoracic echocardiogram in 6 months for surveillance of moderate to severe aortic valve stenosis. * Hold metoprolol. * Consider restarting at reduced dose, 25 mg daily, pending review of telemetry. * losartan to 25 mg daily but currently on hold. * Continue aspirin, statin, Heel wound XR of foot negative for osteo Wound Cultx posit. for Pseudomonas, Serratia , Stenotrophomonas - pt abx changed to cefepime, also added Bactrim. Will re-culture. ID recs noted. MRI ordered wound care and podiatry consulted Per podiatry - - Patient examined and evaluated. We discussed that this wound will take a while to heel and we should evaluate her vascular inflow while here inpatient. Arterial doppler exam for b/l LE ordered. Will help determine odds of healing the wound without further intervention. She will benefit from outpatient wound care when stable and discharged. We will continue to see her on a regular basis, as usual, when discharged as well. - Excisional wound debridement with scalpel at bedside. No necrotic, non-viable or infected tissue noted. Wound bed appears viable. - Dressed with Optifoam border gauze. Redress daily with similar. - Will follow; no further surgical intervention planned. - No need for continued hospitalization for the foot. Can be managed outpatient when stable otherwise. Arterial doppler- 1. Evidence of bilateral femoropopliteal grafting, which is patent on both sides. However, the [place] arteries on the left side are occluded and show biphasic and monophasic waveform patterns. CT angiography is suggested for further evaluation. 2. Nonocclusive thrombus in both femoral veins. 3. However, correlation with prior imaging and surgical records is recommended. Will consult with vasc. surgery (Dr. Naranjo) Weight loss, persistent nausea, poor oral intake, "butt pain" There is a plan to hold trulicity by PCP per admission note Will cont. bowel regimen Obtained CT abdomen - No obstruction. Surgical sutures are again seen along the stomach. Duodenal diverticula. Colonic diverticulosis without evidence of diverticulitis. There is a moderate-sized stool ball resulting in impaction of the rectal vault. Mild perirectal inflammation is also present. Upstream, there is a moderate stool burden in the colon. Bowel regimen upgraded including added enema GI consulted CKD stage III Presented with creatinine 1.2 which is around baseline We will follow labs Wheelchair-bound History of recurrent falls Back pain Continue lidocaine patch Gout Allopurinol Chronic diastolic CHF Not on diuretics Will monitor Hypertension On metoprolol and Benicar, metoprolol on hold as above Will monitor Diabetes Hold trulicity and metformin Sliding scale Will monitor Current HbA1c level 6.6% GERD Protonix Hyperlipidemia On statin History of PVD s/p surgery On aspirin and statin will discuss with vasc. surgery as above History of endometrial cancer S/p surgery Hyperkalemia Still 5.8 on repeat Will give Lokelma Meds reviewed. Trend clesely Check EKG Depression Psychiatry consulted DVT prophylaxis On Lovenox -> now on IV heparin Dispo med/tele Full code. A total of 60 minutes spent in the care and care coordination of this patient Admission and Anticipated Discharge Date Admission Date: February 02, 2025 Subjective Chart, data and VS reviewed. pt seen at bedside. She feels weak. She is dep ressed. She is tearful. Vascular and GI help appreciated. She has chronic SOB. No CP. Physical Exam Physical Exam: General- adult elderly female seen at bedside. Chronic ill appearance, tearful. Head- atraumatic Eyes- PERRL, EOMI, anicteric ENT- oropharynx clear Neck- supple, no JVD, no adenopathy, no thyromegaly; Lungs- clear to auscultation and percussion Heart- regular rhythm; no murmur, no gallop, no rub appreciated Abdomen- normal bowel sounds, soft, nontender, no masses or hepatosplenomegaly Extremities- no pretibial edema, no calf tenderness; + small wound on heel of R foot Neuro- alert, oriented x 2; PERRL, EOMI; no facial palsy; moves all extremities Skin- warm & dry Results & Data Results & Data Vital Signs (Past 12 Hours) Vital Signs Temp Pulse Pulse Resp BP Pulse Ox O2 Del Method 02/07/25 15:04 36.8 C 76 18 149/91 H 96 Room Air 02/07/25 15:00 82 02/07/25 11:21 37.1 C 85 20 133/81 93 Room Air 02/07/25 09:45 Room Air 02/07/25 07:32 36.7 C 87 18 141/94 H 97 Room Air 02/07/25 07:23 92 H Diagnostic Findings Laboratory Results WBC 11.96 K/ul (4.8-10.8) H 02/07/25 06:11 RBC 3.51 M/uL (4.20-5.40) L 02/07/25 06:11 Hgb 11.3 g/dl (12.0-16.0) L 02/07/25 06:11 Hct 33.0 % (37.0-47.0) L 02/07/25 06:11 MCV 94.0 fL (80.0-100.0) 02/07/25 06:11 MCH 32.2 pg (25.0-34.0) 02/07/25 06:11 MCHC 34.2 g/dL (32.0-36.0) 02/07/25 06:11 RDW Std Deviation 51.0 fL (36.4-46.3) H 02/07/25 06:11 RDW Coeff of [place]ek[place] 14.8 % (11.5-14.5) H 02/07/25 06:11 Plt Count 333 K/uL (130-400) 02/07/25 06:11 MPV 11.5 fL (9.4-12.4) 02/07/25 06:11 Immature Gran % (Auto) 0.4 % 02/07/25 06:11 Neut % (Auto) 87.0 % 02/07/25 06:11 Lymph % (Auto) 6.7 % 02/07/25 06:11 [place] % (Auto) 4.9 % 02/07/25 06:11 Eos % (Auto) 0.2 % 02/07/25 06:11 Baso % (Auto) 0.8 % 02/07/25 06:11 Neut # (Auto) 10.40 K/uL (1.40-6.50) H 02/07/25 06:11 Lymph # (Auto) 0.80 K/uL (1.20-3.40) L 02/07/25 06:11 [place] # (Auto) 0.59 K/uL (0.11-0.59) 02/07/25 06:11 Eos # (Auto) 0.02 K/uL (0.00-0.50) 02/07/25 06:11 Baso # (Auto) 0.10 K/uL (0.00-0.20) 02/07/25 06:11 Immature Gran # (Auto) 0.05 K/uL (0.01-0.20) 02/07/25 06:11 Echinocytes 1+ 02/03/25 05:33 ESR 9 mm/hr (0-30) 02/02/25 07:13 PT 10.6 Seconds (9.0-12.0) 02/03/25 02:32 INR 1.0 (0.9-1.1) 02/03/25 02:32 APTT 29 Seconds (21-31) 02/03/25 02:32 PTT Ratio 1.1 02/03/25 02:32 Heparin Anti-Xa, Unfract Cancelled 02/07/25 14:17 Sodium 129 mmol/L (136-145) L 02/07/25 15:50 Potassium 5.8 mmol/L (3.5-5.1) H 02/07/25 15:50 Chloride 102 mmol/L (98-107) 02/07/25 15:50 Carbon Dioxide 19 mmol/L (21-32) L 02/07/25 15:50 Anion Gap 8 (3-11) 02/07/25 15:50 BUN 47 mg/dl (6-23) H 02/07/25 15:50 Creatinine 1.73 mg/dl (0.6-1.2) H 02/07/25 15:50 Est Cr Clr Drug Dosing 20.9 ml/min 02/07/25 15:50 eGFR 30.06 02/07/25 15:50 BUN/Creatinine Ratio 27.2 (10-20) H 02/07/25 15:50 Glucose 90 mg/dl (70-99(Fasting)) 02/07/25 15:50 POC Glucose 95 mg/dl (70-99) 02/07/25 16:27 Estimat Average Glucose 143 mg/dl 02/02/25 07:13 Hemoglobin A1c 6.6 % (4.5-5.6) H 02/02/25 07:13 Calcium 9.0 mg/dl (8.6-10.3) 02/07/25 15:50 Phosphorus 2.7 mg/dl (2.5-4.9) 02/07/25 06:11 Magnesium 2.0 mg/dl (1.7-2.4) 02/07/25 06:11 Total Bilirubin 1.2 mg/dl (0.2-1.0) H 02/01/25 20:45 AST 15 U/L (13-39) 02/01/25 20:45 ALT 8 U/L (7-52) 02/01/25 20:45 Alkaline Phosphatase 61 U/L (34-104) 02/01/25 20:45 Total Creatine Kinase 22 U/L (26-192) L 02/01/25 20:45 Troponin I High Sens 15.3 pg/ml (0-14) H 02/05/25 06:57 C-Reactive Protein < 0.50 mg/dl (0-0.5) 02/02/25 07:23 Total Protein 6.5 gm/dl (6.0-8.3) 02/01/25 20:45 Albumin 3.4 gm/dl (3.4-5.0) 02/01/25 20:45 Globulin 3.1 gm/dl (2.5-4.0) 02/01/25 20:45 Albumin/Globulin Ratio 1.1 (0.9-2) 02/01/25 20:45 TSH 1.663 uIu/ml (0.300-4.500) 02/01/25 20:45 Random Cortisol 29.15 mcg/dl 02/07/25 13:12 Urine Color Yellow 02/01/25 23:05 Urine Appearance Cloudy (Clear) A 02/01/25 23:05 Urine pH 5.5 (4.5-7.5) 02/01/25 23:05 Ur Specific [place] 1.014 (1.000-1.030) 02/01/25 23:05 Urine Protein 2+ (Negative) H 02/01/25 23:05 Urine Glucose (UA) Negative (Negative) 02/01/25 23:05 Urine Ketones Trace (Negative) H 02/01/25 23:05 Urine Blood 1+ (Negative) H 02/01/25 23:05 Urine Nitrite Positive (Negative) A 02/01/25 23:05 Urine Bilirubin Negative (Negative) 02/01/25 23:05 Urine Urobilinogen Negative (Negative) 02/01/25 23:05 Ur Leukocyte Esterase 3+ (Negative) H 02/01/25 23:05 Urine WBC (Auto) >50 /hpf (0-5) H 02/01/25 23:05 Urine RBC (Auto) 6-10 /hpf (0-2) H 02/01/25 23:05 U Hyaline Cast (Auto) 3-5 /lpf (0-2) H 02/01/25 23:05 U Epithel Cells (Auto) 3-5 /hpf (0-2) H 02/01/25 23:05 Urine Bacteria (Auto) 4+ (None Seen) H 02/01/25 23:05 Urine Comment 07/17/25 23:05 Adenovirus (PCR) Not Detected (NotDetected) 02/01/25 Unknown B. pertussis DNA (PCR) Not Detected (NotDetected) 02/01/25 Unknown B.parapertussis DNA PCR Not Detected (NotDetected) 02/01/25 Unknown C. pneumoniae DNA (PCR) Not Detected (NotDetected) 02/01/25 Unknown Coronavirus OC43 (PCR) Not Detected (NotDetected) 02/01/25 Unknown Coronavirus HKU1 (PCR) Not Detected (NotDetected) 02/01/25 Unknown Coronavirus 229E (PCR) Not Detected (NotDetected) 02/01/25 Unknown SARS-CoV-2 (PCR) Not Detected (NotDetected) 02/01/25 Unknown Coronavirus NL63 (PCR) Not Detected (NotDetected) 02/01/25 Unknown Human Metapneumovir PCR Not Detected (NotDetected) 02/01/25 Unknown Influenza Type A (PCR) Not Detected (NotDetected) 02/01/25 Unknown Influenza Type B (PCR) Not Detected (NotDetected) 02/01/25 Unknown M. pneumoniae (PCR) Not Detected (NotDetected) 02/01/25 Unknown Parainfluenza 1 (PCR) Not Detected (NotDetected) 02/01/25 Unknown Parainfluenza 2 (PCR) Not Detected (NotDetected) 02/01/25 Unknown Parainfluenza 3 (PCR) Not Detected (NotDetected) 02/01/25 Unknown Parainfluenza 4 (PCR) Not Detected (NotDetected) 02/01/25 Unknown RSV (PCR) Not Detected (NotDetected) 02/01/25 Unknown Entero/Rhino (PCR) Not Detected (NotDetected) 02/01/25 Unknown Staphylococcus sp PCR DETECTED (NotDetected) A 02/02/25 13:13 Bld Cult ID Panel PCR See PCR Comment (NotDetected) 02/02/25 13:13 Impressions Chest X-Ray 02/01/25 21:41 Exam(s): XR CXR 1 VIEW EXAM: XR Chest, 1 View CLINICAL HISTORY: Reason for exam: weakness. TECHNIQUE: Frontal view of the chest. COMPARISON: 5/5/24. FINDINGS: Lungs: No confluent consolidation or overt edema. Pleural space: No pleural effusion. No pneumothorax. Mediastinum: Unremarkable. Bones/joints: No acute fracture. Upper abdomen: IVC filter. IMPRESSION: No acute cardiopulmonary disease. Electronically signed by: Taz Garcia M.D. 02/01/25 22:39 PM Foot X-Ray 02/02/25 11:41 RIGHT FOOT 2 VIEWS CLINICAL HISTORY: Heel wound. FINDINGS: AP and lateral views the right foot are obtained. Correlation is made with right ankle radiographs dated 11/16/2012. The skeletal structures are heterogeneously osteopenic. There is postsurgical change from ankle and hindfoot fusion. The orthopedic hardware appears intact. No acute fracture is identified. There is chronic posttraumatic deformity of the third proximal phalanx and the fourth metatarsal. Osteoarthritic change is seen throughout the forefoot. There is soft tissue edema throughout the foot with evidence of a heel /ulceration. No bony erosion is seen to suggest osteomyelitis. There is advanced atherosclerotic calcification of the regional arteries. IMPRESSION: 1. Diffuse soft tissue edema with no acute bony abnormality identified. 2. A heel ulcer/wound is noted. There is no clear radiographic evidence of osteomyelitis. 3. Osteopenia with postsurgical and degenerative change as above. Electronically signed by: Sunny Gaffney M.D. 02/02/2025 1:46 PM Duplex Scan Lower Extremity Artery 02/02/25 16:50 EXAM: US arterial duplex LE BI CLINICAL HISTORY: Heel wound. TECHNIQUE: Ultrasound examination of the bilateral lower extremities' arteries was performed in real time and duplex. One or more of the following were performed: spectral analysis, resistive index, waveform analysis, and pulsed Doppler. COMPARISON: None. FINDINGS: Vessel Flow Pattern Right Peak Velocity Right (cm/sec) Flow Pattern Left Peak Velocity Left (cm/sec) Common Femoral Artery (MOTOR COACH OPERATOR) Triphasic 62.4 triphasic 26.3 Superficial Femoral Artery (SFA) Triphasic distally proximal: 80.9 Mid: 78.5 Distal: 46.7 - 6.8 Popliteal Artery (POP A) Biphasic 25.5 monophasic 13.8 Anterior tibial artery([place] A) Biphasic mid: 27.2 Distal: 23.0 - prox/mid:7.7 distal: 12.4 Posterior Tibial Artery (SIGNAL OPERATOR), proximal Biphasic 27.9 monophasic 9.6 Posterior Tibial Artery (SIGNAL OPERATOR), distal Biphasic 44.1 monophaisc - Dorsalis Pedis Artery (DPA) Biphasic 24.1 monophasic 5.2 Mid peroneal Artery Biphasic 23.1 monophaisc - There is evidence of bilateral femoropopliteal grafting, which is patent on both sides. However, the [place] arteries on the left side are occluded and show biphasic and monophasic waveform patterns. Calcifications are identified in the arteries of both lower limbs. Additional Findings: Evidence of nonocclusive thrombus in both the femoral veins. Mild subcutaneous soft tissue edema in both lower limbs. IMPRESSION: 1. Evidence of bilateral femoropopliteal grafting, which is patent on both sides. However, the [place] arteries on the left side are occluded and show biphasic and monophasic waveform patterns. CT angiography is suggested for further evaluation. 2. Nonocclusive thrombus in both femoral veins. 3. However, correlation with prior imaging and surgical records is recommended. Electronically signed by Jeff Soto 02-03-2025 03:31 AM Venous Doppler Study 02/03/25 00:21 CR Exam(s): US VENOUS BILATERAL LOWER EXTREMITIES EXAM: US Duplex Bilateral Lower Extremities Veins CLINICAL HISTORY: Reason for exam: b/l edema. dvt. TECHNIQUE: Real-time duplex ultrasound scan of the bilateral lower extremity veins integrating B-mode two-dimensional vascular structure, Doppler spectral analysis, color flow Doppler imaging and compression. COMPARISON: No relevant prior studies available. FINDINGS: Right deep veins: Acute nonocclusive DVT proximal femoral vein. No DVT in the common femoral vein, mid or distal femoral vein, popliteal vein, or visualized calf veins; these veins demonstrate normal color flow signal and normal compressibility. Right superficial veins: No thrombus in the visualized right great saphenous vein. Left deep veins: Acute nonocclusive DVT in the common femoral, proximal middle and distal femoral, and popliteal veins. No DVT in the visualized calf veins which demonstrate normal color flow signal and normal compressibility. The peroneal vein is not visualized. DVT in the left common femoral, femoral, proximal deep femoral or popliteal veins. The veins demonstrate normal color flow, are normally compressible, with normal phasic flow and/or augmentation response. Left superficial veins: Left great saphenous vein is not evaluated. Soft tissues: No acute findings. IMPRESSION: 1. Acute nonocclusive DVT proximal right femoral vein. 2. Extensive acute nonocclusive DVT left common femoral vein, proximal, middle, and distal femoral vein, and popliteal vein. Communications: Verify Receipt with Nurse Electronically signed by: Maik Noriega M.D. 02/03/25 00:59 AM Chest CTA 02/05/25 09:08 CT angio chest PE protocol CT DOSE: 478.45 mGy.cm HISTORY: 79 years-old Female with PE. Acute shortness of breath with acute DVT TECHNIQUE: Multiple CTA images of the chest were obtained after the intravenous administration of 112 ml Optiray. Coronal and sagittal MIPS were obtained from the axial data set and were submitted for review. All measurements were obtained according to NASCET criteria. A dose lowering technique was utilized adhering to the principles of ALARA. COMPARISON: Duplex venous Doppler 02/03/2025 FINDINGS: CTA: Moderate cardiomegaly. No pleural effusion. Atherosclerosis of the thoracic aorta without aneurysm or dissection. No central pulmonary emboli. Suboptimal evaluation of the segmental and subsegmental branches secondary to contrast bolus timing. CT CHEST: Unremarkable thyroid. Calcified mediastinal nodes suggestive of prior granulomatous disease. Trace left pleural effusion. No pneumothorax. Moderate right hemidiaphragmatic elevation. Dependent bibasilar linear consolidations suggestive of atelectasis. No suspicious pulmonary nodules or masses. There are few subpleural apical nodules measuring up to 3 mm bilaterally which are of low clinical suspicion. No acute upper abdominal abnormality. 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 Midthoracic dextroscoliosis. IMPRESSION: 1. No central pulmonary emboli identified. 2. Trace left pleural effusion with dependent bibasilar consolidation suggestive of atelectasis. ACT 112: Negative or not required by law. The above report was generated using voice recognition software. It may contain grammatical, syntax or spelling errors. Electronically signed by: Bobby Mercado M.D. 02/05/2025 11:36 AM Abdomen/Pelvis CT 02/05/25 19:05 CT ABDOMEN and PELVIS with INTRAVENOUS CONTRAST HISTORY: Abdominal pain TECHNIQUE: CT abdomen and pelvis with contrast. IV CONTRAST: 100 mL of OMNIPAQUE 300 ENTERIC CONTRAST: Not Given COMPARISON: FINDINGS: LOWER CHEST: Mildly enlarged heart. Coronary and valvular calcifications. Bibasilar atelectasis. LIVER: No focal lesion identified. Hepatic steatosis GALLBLADDER/BILIARY: Unremarkable gallbladder. No abnormal biliary dilatation. SPLEEN: Unremarkable. PANCREAS: Atrophic. Cystic changes on the pancreas may represent IPMN's ADRENALS: Unremarkable. KIDNEYS: Atrophic kidneys bilaterally. Cortical cysts. Excreted contrast limits evaluation for small stones. No hydronephrosis. Bilateral mild perinephric stranding. PERITONEUM/RETROPERITONEUM. No lymphadenopathy by size criteria. No aortic aneurysm. Moderate atherosclerosis IVC filter in place. Presacral fluid is not specific. GASTROINTESTINAL: No obstruction. Surgical sutures are again seen along the stomach. Duodenal diverticula. Colonic diverticulosis without evidence of diverticulitis. There is a moderate-sized stool ball resulting in impaction of the rectal vault. Mild perirectal inflammation is also present. Upstream, there is a moderate stool burden in the colon. REPRODUCTIVE: No suspicious pelvic masses identified URINARY BLADDER: Acosta catheter in place. Mild wall thickening ABDOMINAL WALL: Anasarca. Apparent central filling defect in the left femoral vein. Question DVT. If warranted, DVT ultrasound may be obtained for further evaluation BONES: No acute findings. IMPRESSION: Findings suggesting mild stercoral colitis and mild upstream constipation. Apparent central filling defect in the left femoral vein. Question DVT. If warranted, DVT ultrasound may be obtained for further evaluation Electronically signed by Gilberto Fields 02-05-2025 8:30 PM
[2025-02-07 16:58] LABS: ANTI-Xa, UFH(UnfractionatedHep 0.75 IU/ml (0.3-0.7)
[2025-02-07] MEDS: SODIUM ZIRCONIUM CYCLOSILICATE 10 GM PACKET PO ONE (17:39)
[2025-02-07 21:52] LABS: Anion Gap 9.0 (3-11); Blood Urea Nitrogen 46.0 mg/dl (6-23); Calcium 8.8 mg/dl (8.6-10.3); Carbon Dioxide 19.0 mmol/L (21-32); Chloride 101.0 mmol/L (98-107); Creatinine Clr Calc Pharmacy 21.0 ml/min; Glucose 136.0 mg/dl (70-99(Fasting)); Potassium 5.7 mmol/L (3.5-5.1); Sodium 129.0 mmol/L (136-145)
[2025-02-08 00:52] LABS: ANTI-Xa, UFH(UnfractionatedHep 0.46 IU/ml (0.3-0.7)
[2025-02-08 07:50] LABS: Hematocrit (blood only) 31.9 % (37.0-47.0); Hemoglobin 10.5 g/dl (12.0-16.0); Mean Corpuscular Hemoglobin 31.5 pg (25.0-34.0); Mean Corpuscular Volume 95.8 fL (80.0-100.0); Platelet Count 289 K/uL (130-400); RDW Standard Deviation 51.1 fL (36.4-46.3); Red Blood Count 3.33 M/uL (4.20-5.40); White Blood Count 8.05 K/ul (4.8-10.8)
[2025-02-08 08:05] LABS: Anion Gap 5.0 (3-11); Blood Urea Nitrogen 51.0 mg/dl (6-23); Calcium 8.6 mg/dl (8.6-10.3); Carbon Dioxide 22.0 mmol/L (21-32); Chloride 103.0 mmol/L (98-107); Creatinine Clr Calc Pharmacy 20.0 ml/min; Glucose 115.0 mg/dl (70-99(Fasting)); Potassium 5.5 mmol/L (3.5-5.1); Sodium 130.0 mmol/L (136-145)
[2025-02-08 08:31] LABS: ANTI-Xa, UFH(UnfractionatedHep 0.45 IU/ml (0.3-0.7)
--- NOTE | 2025-02-08 09:24 | Gastroenterology Progress Note ---
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 Constipation - CT w/ impaction, moderate stool burden in the colon - Miralax 1 capful up to three times daily 2. Nausea, history of gastroparesis - She previously followed with [facility] for presumed gastroparesis - Tiral of low fose IV reglan [facility] - Recommend she re-establish as OP w/ her [facility] team - Gastroparesis diet as tolerated - Consider trial off of Trulicity 3. Weight loss - Recommend she have OP EGD/Colonoscopy with her established GI team at [facility] I spent a total of 40 minutes on the date of service in review of patient's record, and previously obtained information in person and appropriate medical visit, discussion and education of plan, with patient and/or caregiver, placing orders for tests/referral/procedures as medically necessary and documentation of pertinent clinical information in patient's medical records for their visit today. Admission and Anticipated Discharge Date Admission Date: February 02, 2025 Supervising Physician Co-Signing Physician Notes Improving p.o. intake. Continue IV Reglan. Switch to p.o. Reglan prior to discharge. Follow-up with Dr. Maya her treating medical director. Subjective Intake starting to improve with Reglan. Ate yogurt, strawberries and some of a boost shake this AM. No vomiting. Chronic nausea. Review of Systems Review of Systems: All other findings negative except as noted in HPI. Physical Exam Constitutional: WD/WN, vitals as above Respiratory: normal respiratory effort, lungs clear to auscultation Cardiovascular: RRR, no murmur, no edema Gastrointestinal (Abdomen): normal bowel sounds, soft, nontender, no hepatosplenomegaly Skin: no rashes, warm and dry Results & Data Results & Data Vital Signs (Past 12 Hours) Vital Signs Temp Pulse Pulse Resp BP BP Pulse Ox 02/08/25 07:21 98.4 F 79 16 166/90 H 94 02/08/25 07:07 72 02/08/25 02:40 97.7 F 79 16 160/83 H 94 02/07/25 23:13 97.7 F 75 18 144/81 H 97 02/07/25 21:58 86 O2 Del Method 02/08/25 07:21 Room Air 02/08/25 07:07 02/08/25 02:40 Room Air 02/07/25 23:13 Room Air 02/07/25 21:58 PG Care Time/CCT Total # of Minutes Spent Total Time Spent with Patient: Total time spent is greater than 50% in coordination of care (as documented) at patient's floor/unit and/or counseling patient: Coding Level of Care Code 12561 SUB INP/OBS CARE 2/35MIN Diagnoses Nausea R11.0
--- NOTE | 2025-02-08 11:50 | Hospitalist Progress Note ---
Date of Service February 08, 2025 Assessment & Plan (1) Acute UTI: Plan: In summary, 79-year-old female with past history significant for type 2 diabetes, CKD stage III, gout, hyperlipidemia, pancreatic cyst, congenital hiatus hernia, history of recurrent DVT, history of pulmonary embolism, primary hypercoagulable state, status post IVC filter, right bundle branch block, nonrheumatic arctic valve stenosis, hypertension, post gastric surgery syndrome, history of multiple gastric polyps, eczema, osteoporosis, who lives at home with her admitted for generalized weakness and UTI. Acute UTI Weakness possibly from UTI Empiric Rocephin -> now on cefepime d/t foot wound UC pos for E.coli History of recurrent DVT History of pulmonary embolism Hypercoagulable state Status post IVC filter Was on prophylactic Lovenox Lovenox dose recently adjusted to to 50 mg every 24 hours per anticoagulation clinic Now found to have acute dvt - and on IV heparin Venous doppler- Acute nonocclusive DVT proximal right femoral vein.. Extensive acute nonocclusive DVT left common femoral vein, proximal, middle, and distal femoral vein, and popliteal vein. Discussed w/ Dr. Nielsen (hematology) on 02/05 - will need to discuss with anticoag. clinic prior to DC as pt failed NOAC before and currently on lovenox 50 daily per anticoag.clinic. Mild elevation of troponin abnormal ekg will follow serial troponin and echo Echo - LV EF 60-65%. There is moderate concentric LVH. Aortic valve is moderately calcified. Bicuspid aortic valve cannot be excluded. Moderate to severe valvular aortic stenosis. There is mild mitral regurg. Doppler findings do not suggest pulm. hypertension. Compared to study in 2023 aortic valve syst. gradient has increased. Cardiology consulted - Beta-charis placed on hold due to bradycardia. Echocardiogram demonstrated moderate to severe aortic valve stenosis with increase in aortic valve systolic gradient. Recommendations: * Repeat resting 2D transthoracic echocardiogram in 6 months for surveillance of moderate to severe aortic valve stenosis. * Hold metoprolol. * Consider restarting at reduced dose, 25 mg daily, pending review of telemetry. * losartan to 25 mg daily but currently on hold. * Continue aspirin, statin, Heel wound XR of foot negative for osteo Wound Cultx posit. for Pseudomonas, Serratia , Stenotrophomonas - pt abx changed to cefepime, also added Bactrim. Will re-culture. ID recs noted. MRI ordered wound care and podiatry consulted Per podiatry - - Patient examined and evaluated. We discussed that this wound will take a while to heel and we should evaluate her vascular inflow while here inpatient. Arterial doppler exam for b/l LE ordered. Will help determine odds of healing the wound without further intervention. She will benefit from outpatient wound care when stable and discharged. We will continue to see her on a regular basis, as usual, when discharged as well. - Excisional wound debridement with scalpel at bedside. No necrotic, non-viable or infected tissue noted. Wound bed appears viable. - Dressed with Optifoam border gauze. Redress daily with similar. - Will follow; no further surgical intervention planned. - No need for continued hospitalization for the foot. Can be managed outpatient when stable otherwise. Arterial doppler- 1. Evidence of bilateral femoropopliteal grafting, which is patent on both sides. However, the [place] arteries on the left side are occluded and show biphasic and monophasic waveform patterns. CT angiography is suggested for further evaluation. 2. Nonocclusive thrombus in both femoral veins. 3. However, correlation with prior imaging and surgical records is recommended. Will consult with vasc. surgery (Dr. Naranjo) Weight loss, persistent nausea, poor oral intake, "butt pain" There is a plan to hold trulicity by PCP per admission note Will cont. bowel regimen Obtained CT abdomen - No obstruction. Surgical sutures are again seen along the stomach. Duodenal diverticula. Colonic diverticulosis without evidence of diverticulitis. There is a moderate-sized stool ball resulting in impaction of the rectal vault. Mild perirectal inflammation is also present. Upstream, there is a moderate stool burden in the colon. Bowel regimen upgraded including added enema GI consulted CKD stage III Presented with creatinine 1.2 which is around baseline We will follow labs Wheelchair-bound History of recurrent falls Back pain Continue lidocaine patch Gout Allopurinol Chronic diastolic CHF Not on diuretics Will monitor Hypertension On metoprolol and Benicar, metoprolol on hold as above Will monitor Diabetes Hold trulicity and metformin Sliding scale Will monitor Current HbA1c level 6.6% GERD Protonix Hyperlipidemia On statin History of PVD s/p surgery On aspirin and statin will discuss with vasc. surgery as above History of endometrial cancer S/p surgery Hyperkalemia Still 5.8 on repeat Will give Lokelma Meds reviewed. Trend clesely Check EKG Depression Psychiatry consulted Will consult palliative medicine to discuss goals of care. Patient is aware and agrees DVT prophylaxis On Lovenox -> now on IV heparin Dispo med/tele Full code. Admission and Anticipated Discharge Date Admission Date: February 02, 2025 Subjective Chart, vital signs and data reviewed. Patient was able to eat more today. Intake starting to improve with Reglan. Ate yogurt, strawberries and some of a boost shake this AM. No vomiting. Chronic nausea. She states she has chronic chest pain and chronic shortness of breath. She feels depressed. Physical Exam Physical Exam: General- adult elderly female seen at bedside. Chronic ill appearance, tearful. Eyes- PERRL, EOMI, anicteric Neck- supple, no JVD, Lungs- clear to auscultation and percussion Heart- regular rhythm; Abdomen- normal bowel sounds, soft, nontender, no masses or hepatosplenomegaly Extremities- no pretibial edema, no calf tenderness; + small wound on heel of R foot Neuro- alert, oriented x 2; PERRL, EOMI; no facial palsy; moves all extremities Skin- warm & dry Results & Data Results & Data Vital Signs (Past 12 Hours) Vital Signs Temp Pulse Pulse Resp BP BP Pulse Ox 02/08/25 10:54 37.2 C 84 20 149/87 H 95 02/08/25 07:21 36.9 C 79 16 166/90 H 94 02/08/25 07:07 72 02/08/25 02:40 36.5 C 79 16 160/83 H 94 O2 Del Method 02/08/25 10:54 Room Air 02/08/25 07:21 Room Air 02/08/25 07:07 02/08/25 02:40 Room Air Laboratory Results Laboratory Results WBC 8.05 K/ul (4.8-10.8) 02/08/25 07:31 RBC 3.33 M/uL (4.20-5.40) L 02/08/25 07:31 Hgb 10.5 g/dl (12.0-16.0) L 02/08/25 07:31 Hct 31.9 % (37.0-47.0) L 02/08/25 07:31 MCV 95.8 fL (80.0-100.0) 02/08/25 07:31 MCH 31.5 pg (25.0-34.0) 02/08/25 07:31 MCHC 32.9 g/dL (32.0-36.0) 02/08/25 07:31 RDW Std Deviation 51.1 fL (36.4-46.3) H 02/08/25 07:31 RDW Coeff of Bek[place] 14.8 % (11.5-14.5) H 02/08/25 07:31 Plt Count 289 K/uL (130-400) 02/08/25 07:31 MPV 11.0 fL (9.4-12.4) 02/08/25 07:31 Immature Gran % (Auto) 0.4 % 02/07/25 06:11 Neut % (Auto) 87.0 % 02/07/25 06:11 Lymph % (Auto) 6.7 % 02/07/25 06:11 [place] % (Auto) 4.9 % 02/07/25 06:11 Eos % (Auto) 0.2 % 02/07/25 06:11 Baso % (Auto) 0.8 % 02/07/25 06:11 Neut # (Auto) 10.40 K/uL (1.40-6.50) H 02/07/25 06:11 Lymph # (Auto) 0.80 K/uL (1.20-3.40) L 02/07/25 06:11 [place] # (Auto) 0.59 K/uL (0.11-0.59) 02/07/25 06:11 Eos # (Auto) 0.02 K/uL (0.00-0.50) 02/07/25 06:11 Baso # (Auto) 0.10 K/uL (0.00-0.20) 02/07/25 06:11 Immature Gran # (Auto) 0.05 K/uL (0.01-0.20) 02/07/25 06:11 Echinocytes 1+ 02/03/25 05:33 ESR 9 mm/hr (0-30) 02/02/25 07:13 PT 10.6 Seconds (9.0-12.0) 02/03/25 02:32 INR 1.0 (0.9-1.1) 02/03/25 02:32 APTT 29 Seconds (21-31) 02/03/25 02:32 PTT Ratio 1.1 02/03/25 02:32 Heparin Anti-Xa, Unfract 0.45 IU/ml (0.3-0.7) 02/08/25 07:31 Sodium 130 mmol/L (136-145) L 02/08/25 07:31 Potassium 5.5 mmol/L (3.5-5.1) H 02/08/25 07:31 Chloride 103 mmol/L (98-107) 02/08/25 07:31 Carbon Dioxide 22 mmol/L (21-32) 02/08/25 07:31 Anion Gap 5 (3-11) 02/08/25 07:31 BUN 51 mg/dl (6-23) H 02/08/25 07:31 Creatinine 1.80 mg/dl (0.6-1.2) H 02/08/25 07:31 Est Cr Clr Drug Dosing 20.0 ml/min 02/08/25 07:31 eGFR 28.66 02/08/25 07:31 BUN/Creatinine Ratio 28.3 (10-20) H 02/08/25 07:31 Glucose 115 mg/dl (70-99(Fasting)) H 02/08/25 07:31 POC Glucose 131 mg/dl (70-99) H 02/08/25 07:47 Estimat Average Glucose 143 mg/dl 02/02/25 07:13 Hemoglobin A1c 6.6 % (4.5-5.6) H 02/02/25 07:13 Calcium 8.6 mg/dl (8.6-10.3) 02/08/25 07:31 Phosphorus 2.7 mg/dl (2.5-4.9) 02/07/25 06:11 Magnesium 2.0 mg/dl (1.7-2.4) 02/07/25 06:11 Total Bilirubin 1.2 mg/dl (0.2-1.0) H 02/01/25 20:45 AST 15 U/L (13-39) 02/01/25 20:45 ALT 8 U/L (7-52) 02/01/25 20:45 Alkaline Phosphatase 61 U/L (34-104) 02/01/25 20:45 Total Creatine Kinase 22 U/L (26-192) L 02/01/25 20:45 Troponin I High Sens 15.3 pg/ml (0-14) H 02/05/25 06:57 C-Reactive Protein < 0.50 mg/dl (0-0.5) 02/02/25 07:23 Total Protein 6.5 gm/dl (6.0-8.3) 02/01/25 20:45 Albumin 3.4 gm/dl (3.4-5.0) 02/01/25 20:45 Globulin 3.1 gm/dl (2.5-4.0) 02/01/25 20:45 Albumin/Globulin Ratio 1.1 (0.9-2) 02/01/25 20:45 TSH 1.663 uIu/ml (0.300-4.500) 02/01/25 20:45 Random Cortisol 29.15 mcg/dl 02/07/25 13:12 Urine Color Yellow 02/01/25 23:05 Urine Appearance Cloudy (Clear) A 02/01/25 23:05 Urine pH 5.5 (4.5-7.5) 02/01/25 23:05 Ur Specific Alpha 1.014 (1.000-1.030) 02/01/25 23:05 Urine Protein 2+ (Negative) H 02/01/25 23:05 Urine Glucose (UA) Negative (Negative) 02/01/25 23:05 Urine Ketones Trace (Negative) H 02/01/25 23:05 Urine Blood 1+ (Negative) H 02/01/25 23:05 Urine Nitrite Positive (Negative) A 02/01/25 23:05 Urine Bilirubin Negative (Negative) 02/01/25 23:05 Urine Urobilinogen Negative (Negative) 02/01/25 23:05 Ur Leukocyte Esterase 3+ (Negative) H 02/01/25 23:05 Urine WBC (Auto) >50 /hpf (0-5) H 02/01/25 23:05 Urine RBC (Auto) 6-10 /hpf (0-2) H 02/01/25 23:05 U Hyaline Cast (Auto) 3-5 /lpf (0-2) H 02/01/25 23:05 U Epithel Cells (Auto) 3-5 /hpf (0-2) H 02/01/25 23:05 Urine Bacteria (Auto) 4+ (None Seen) H 02/01/25 23:05 Urine Comment 02/01/25 23:05 Adenovirus (PCR) Not Detected (NotDetected) 02/01/25 Unknown B. pertussis DNA (PCR) Not Detected (NotDetected) 02/01/25 Unknown B.parapertussis DNA PCR Not Detected (NotDetected) 02/01/25 Unknown C. pneumoniae DNA (PCR) Not Detected (NotDetected) 02/01/25 Unknown Coronavirus OC43 (PCR) Not Detected (NotDetected) 02/01/25 Unknown Coronavirus HKU1 (PCR) Not Detected (NotDetected) 02/01/25 Unknown Coronavirus 229E (PCR) Not Detected (NotDetected) 02/01/25 Unknown SARS-CoV-2 (PCR) Not Detected (NotDetected) 02/01/25 Unknown Coronavirus NL63 (PCR) Not Detected (NotDetected) 02/01/25 Unknown Human Metapneumovir PCR Not Detected (NotDetected) 02/01/25 Unknown Influenza Type A (PCR) Not Detected (NotDetected) 02/01/25 Unknown Influenza Type B (PCR) Not Detected (NotDetected) 02/01/25 Unknown M. pneumoniae (PCR) Not Detected (NotDetected) 02/01/25 Unknown Parainfluenza 1 (PCR) Not Detected (NotDetected) 02/01/25 Unknown Parainfluenza 2 (PCR) Not Detected (NotDetected) 02/01/25 Unknown Parainfluenza 3 (PCR) Not Detected (NotDetected) 02/01/25 Unknown Parainfluenza 4 (PCR) Not Detected (NotDetected) 02/01/25 Unknown RSV (PCR) Not Detected (NotDetected) 02/01/25 Unknown Entero/Rhino (PCR) Not Detected (NotDetected) 02/01/25 Unknown Staphylococcus sp PCR DETECTED (NotDetected) A 02/02/25 13:13 Bld Cult ID Panel PCR See PCR Comment (NotDetected) 02/02/25 13:13 Diagnostic Findings Laboratory Results WBC 8.05 K/ul (4.8-10.8) 02/08/25 07:31 RBC 3.33 M/uL (4.20-5.40) L 02/08/25 07:31 Hgb 10.5 g/dl (12.0-16.0) L 02/08/25 07:31 Hct 31.9 % (37.0-47.0) L 02/08/25 07:31 MCV 95.8 fL (80.0-100.0) 02/08/25 07:31 MCH 31.5 pg (25.0-34.0) 02/08/25 07:31 MCHC 32.9 g/dL (32.0-36.0) 02/08/25 07:31 RDW Std Deviation 51.1 fL (36.4-46.3) H 02/08/25 07:31 RDW Coeff of Beka 14.8 % (11.5-14.5) H 02/08/25 07:31 Plt Count 289 K/uL (130-400) 02/08/25 07:31 MPV 11.0 fL (9.4-12.4) 02/08/25 07:31 Immature Gran % (Auto) 0.4 % 02/07/25 06:11 Neut % (Auto) 87.0 % 02/07/25 06:11 Lymph % (Auto) 6.7 % 02/07/25 06:11 [place] % (Auto) 4.9 % 02/07/25 06:11 Eos % (Auto) 0.2 % 02/07/25 06:11 Baso % (Auto) 0.8 % 02/07/25 06:11 Neut # (Auto) 10.40 K/uL (1.40-6.50) H 02/07/25 06:11 Lymph # (Auto) 0.80 K/uL (1.20-3.40) L 02/07/25 06:11 [place] # (Auto) 0.59 K/uL (0.11-0.59) 02/07/25 06:11 Eos # (Auto) 0.02 K/uL (0.00-0.50) 02/07/25 06:11 Baso # (Auto) 0.10 K/uL (0.00-0.20) 02/07/25 06:11 Immature Gran # (Auto) 0.05 K/uL (0.01-0.20) 02/07/25 06:11 Echinocytes 1+ 02/03/25 05:33 ESR 9 mm/hr (0-30) 02/02/25 07:13 PT 10.6 Seconds (9.0-12.0) 02/03/25 02:32 INR 1.0 (0.9-1.1) 02/03/25 02:32 APTT 29 Seconds (21-31) 02/03/25 02:32 PTT Ratio 1.1 02/03/25 02:32 Heparin Anti-Xa, Unfract 0.45 IU/ml (0.3-0.7) 02/08/25 07:31 Sodium 130 mmol/L (136-145) L 02/08/25 07:31 Potassium 5.5 mmol/L (3.5-5.1) H 02/08/25 07:31 Chloride 103 mmol/L (98-107) 02/08/25 07:31 Carbon Dioxide 22 mmol/L (21-32) 02/08/25 07:31 Anion Gap 5 (3-11) 02/08/25 07:31 BUN 51 mg/dl (6-23) H 02/08/25 07:31 Creatinine 1.80 mg/dl (0.6-1.2) H 02/08/25 07:31 Est Cr Clr Drug Dosing 20.0 ml/min 02/08/25 07:31 eGFR 28.66 02/08/25 07:31 BUN/Creatinine Ratio 28.3 (10-20) H 02/08/25 07:31 Glucose 115 mg/dl (70-99(Fasting)) H 02/08/25 07:31 POC Glucose 131 mg/dl (70-99) H 02/08/25 07:47 Estimat Average Glucose 143 mg/dl 02/02/25 07:13 Hemoglobin A1c 6.6 % (4.5-5.6) H 02/02/25 07:13 Calcium 8.6 mg/dl (8.6-10.3) 02/08/25 07:31 Phosphorus 2.7 mg/dl (2.5-4.9) 02/07/25 06:11 Magnesium 2.0 mg/dl (1.7-2.4) 02/07/25 06:11 Total Bilirubin 1.2 mg/dl (0.2-1.0) H 02/01/25 20:45 AST 15 U/L (13-39) 02/01/25 20:45 ALT 8 U/L (7-52) 02/01/25 20:45 Alkaline Phosphatase 61 U/L (34-104) 02/01/25 20:45 Total Creatine Kinase 22 U/L (26-192) L 02/01/25 20:45 Troponin I High Sens 15.3 pg/ml (0-14) H 02/05/25 06:57 C-Reactive Protein < 0.50 mg/dl (0-0.5) 02/02/25 07:23 Total Protein 6.5 gm/dl (6.0-8.3) 02/01/25 20:45 Albumin 3.4 gm/dl (3.4-5.0) 02/01/25 20:45 Globulin 3.1 gm/dl (2.5-4.0) 02/01/25 20:45 Albumin/Globulin Ratio 1.1 (0.9-2) 02/01/25 20:45 TSH 1.663 uIu/ml (0.300-4.500) 02/01/25 20:45 Random Cortisol 29.15 mcg/dl 02/07/25 13:12 Urine Color Yellow 02/01/25 23:05 Urine Appearance Cloudy (Clear) A 02/01/25 23:05 Urine pH 5.5 (4.5-7.5) 02/01/25 23:05 Ur Specific Alpha 1.014 (1.000-1.030) 02/01/25 23:05 Urine Protein 2+ (Negative) H 02/01/25 23:05 Urine Glucose (UA) Negative (Negative) 02/01/25 23:05 Urine Ketones Trace (Negative) H 02/01/25 23:05 Urine Blood 1+ (Negative) H 02/01/25 23:05 Urine Nitrite Positive (Negative) A 02/01/25 23:05 Urine Bilirubin Negative (Negative) 02/01/25 23:05 Urine Urobilinogen Negative (Negative) 02/01/25 23:05 Ur Leukocyte Esterase 3+ (Negative) H 02/01/25 23:05 Urine WBC (Auto) >50 /hpf (0-5) H 02/01/25 23:05 Urine RBC (Auto) 6-10 /hpf (0-2) H 02/01/25 23:05 U Hyaline Cast (Auto) 3-5 /lpf (0-2) H 02/01/25 23:05 U Epithel Cells (Auto) 3-5 /hpf (0-2) H 02/01/25 23:05 Urine Bacteria (Auto) 4+ (None Seen) H 02/01/25 23:05 Urine Comment 02/01/25 23:05 Adenovirus (PCR) Not Detected (NotDetected) 02/01/25 Unknown B. pertussis DNA (PCR) Not Detected (NotDetected) 02/01/25 Unknown B.parapertussis DNA PCR Not Detected (NotDetected) 02/01/25 Unknown C. pneumoniae DNA (PCR) Not Detected (NotDetected) 02/01/25 Unknown Coronavirus OC43 (PCR) Not Detected (NotDetected) 02/01/25 Unknown Coronavirus HKU1 (PCR) Not Detected (NotDetected) 02/01/25 Unknown Coronavirus 229E (PCR) Not Detected (NotDetected) 02/01/25 Unknown SARS-CoV-2 (PCR) Not Detected (NotDetected) 02/01/25 Unknown Coronavirus NL63 (PCR) Not Detected (NotDetected) 02/01/25 Unknown Human Metapneumovir PCR Not Detected (NotDetected) 02/01/25 Unknown Influenza Type A (PCR) Not Detected (NotDetected) 02/01/25 Unknown Influenza Type B (PCR) Not Detected (NotDetected) 02/01/25 Unknown M. pneumoniae (PCR) Not Detected (NotDetected) 02/01/25 Unknown Parainfluenza 1 (PCR) Not Detected (NotDetected) 02/01/25 Unknown Parainfluenza 2 (PCR) Not Detected (NotDetected) 02/01/25 Unknown Parainfluenza 3 (PCR) Not Detected (NotDetected) 02/01/25 Unknown Parainfluenza 4 (PCR) Not Detected (NotDetected) 02/01/25 Unknown RSV (PCR) Not Detected (NotDetected) 02/01/25 Unknown Entero/Rhino (PCR) Not Detected (NotDetected) 02/01/25 Unknown Staphylococcus sp PCR DETECTED (NotDetected) A 02/02/25 13:13 Bld Cult ID Panel PCR See PCR Comment (NotDetected) 02/02/25 13:13 Impressions Chest X-Ray 02/01/25 21:41 Exam(s): XR CXR 1 VIEW EXAM: XR Chest, 1 View CLINICAL HISTORY: Reason for exam: weakness. TECHNIQUE: Frontal view of the chest. COMPARISON: 11/21/23. FINDINGS: Lungs: No confluent consolidation or overt edema. Pleural space: No pleural effusion. No pneumothorax. Mediastinum: Unremarkable. Bones/joints: No acute fracture. Upper abdomen: IVC filter. IMPRESSION: No acute cardiopulmonary disease. Electronically signed by: Taz Garcia M.D. 02/01/25 22:39 PM Foot X-Ray 02/02/25 11:41 RIGHT FOOT 2 VIEWS CLINICAL HISTORY: Heel wound. FINDINGS: AP and lateral views the right foot are obtained. Correlation is made with right ankle radiographs dated 11/16/2012. The skeletal structures are heterogeneously osteopenic. There is postsurgical change from ankle and hindfoot fusion. The orthopedic hardware appears intact. No acute fracture is identified. There is chronic posttraumatic deformity of the third proximal phalanx and the fourth metatarsal. Osteoarthritic change is seen throughout the forefoot. There is soft tissue edema throughout the foot with evidence of a heel /ulceration. No bony erosion is seen to suggest osteomyelitis. There is advanced atherosclerotic calcification of the regional arteries. IMPRESSION: 1. Diffuse soft tissue edema with no acute bony abnormality identified. 2. A heel ulcer/wound is noted. There is no clear radiographic evidence of osteomyelitis. 3. Osteopenia with postsurgical and degenerative change as above. Electronically signed by: Sunny Gaffney M.D. 02/02/2025 1:46 PM Duplex Scan Lower Extremity Artery 02/02/25 16:50 EXAM: US arterial duplex LE BI CLINICAL HISTORY: Heel wound. TECHNIQUE: Ultrasound examination of the bilateral lower extremities' arteries was performed in real time and duplex. One or more of the following were performed: spectral analysis, resistive index, waveform analysis, and pulsed Doppler. COMPARISON: None. FINDINGS: Vessel Flow Pattern Right Peak Velocity Right (cm/sec) Flow Pattern Left Peak Velocity Left (cm/sec) Common Femoral Artery (UPHOLSTERY PARTS SORTER) Triphasic 62.4 triphasic 26.3 Superficial Femoral Artery (SFA) Triphasic distally proximal: 80.9 Mid: 78.5 Distal: 46.7 - 6.8 Popliteal Artery (POP A) Biphasic 25.5 monophasic 13.8 Anterior tibial artery(ALEXANDER A) Biphasic mid: 27.2 Distal: 23.0 - prox/mid:7.7 distal: 12.4 Posterior Tibial Artery (SENIOR CHEMIST), proximal Biphasic 27.9 monophasic 9.6 Posterior Tibial Artery (SENIOR CHEMIST), distal Biphasic 44.1 monophaisc - Dorsalis Pedis Artery (DPA) Biphasic 24.1 monophasic 5.2 Mid peroneal Artery Biphasic 23.1 monophaisc - There is evidence of bilateral femoropopliteal grafting, which is patent on both sides. However, the [place] arteries on the left side are occluded and show biphasic and monophasic waveform patterns. Calcifications are identified in the arteries of both lower limbs. Additional Findings: Evidence of nonocclusive thrombus in both the femoral veins. Mild subcutaneous soft tissue edema in both lower limbs. IMPRESSION: 1. Evidence of bilateral femoropopliteal grafting, which is patent on both sides. However, the [place] arteries on the left side are occluded and show biphasic and monophasic waveform patterns. CT angiography is suggested for further evaluation. 2. Nonocclusive thrombus in both femoral veins. 3. However, correlation with prior imaging and surgical records is recommended. Electronically signed by Jeff Soto 02-03-2025 03:31 AM Venous Doppler Study 02/03/25 00:21 CR Exam(s): US VENOUS BILATERAL LOWER EXTREMITIES EXAM: US Duplex Bilateral Lower Extremities Veins CLINICAL HISTORY: Reason for exam: b/l edema. dvt. TECHNIQUE: Real-time duplex ultrasound scan of the bilateral lower extremity veins integrating B-mode two-dimensional vascular structure, Doppler spectral analysis, color flow Doppler imaging and compression. COMPARISON: No relevant prior studies available. FINDINGS: Right deep veins: Acute nonocclusive DVT proximal femoral vein. No DVT in the common femoral vein, mid or distal femoral vein, popliteal vein, or visualized calf veins; these veins demonstrate normal color flow signal and normal compressibility. Right superficial veins: No thrombus in the visualized right great saphenous vein. Left deep veins: Acute nonocclusive DVT in the common femoral, proximal middle and distal femoral, and popliteal veins. No DVT in the visualized calf veins which demonstrate normal color flow signal and normal compressibility. The peroneal vein is not visualized. DVT in the left common femoral, femoral, proximal deep femoral or popliteal veins. The veins demonstrate normal color flow, are normally compressible, with normal phasic flow and/or augmentation response. Left superficial veins: Left great saphenous vein is not evaluated. Soft tissues: No acute findings. IMPRESSION: 1. Acute nonocclusive DVT proximal right femoral vein. 2. Extensive acute nonocclusive DVT left common femoral vein, proximal, middle, and distal femoral vein, and popliteal vein. Communications: Verify Receipt with Nurse Electronically signed by: Maik Noriega M.D. 02/03/25 00:59 AM Chest CTA 02/05/25 09:08 CT angio chest PE protocol CT DOSE: 478.45 mGy.cm HISTORY: 79 years-old Female with PE. Acute shortness of breath with acute DVT TECHNIQUE: Multiple CTA images of the chest were obtained after the intravenous administration of 112 ml Optiray. Coronal and sagittal MIPS were obtained from the axial data set and were submitted for review. All measurements were obtained according to NASCET criteria. A dose lowering technique was utilized adhering to the principles of ALARA. COMPARISON: Duplex venous Doppler 02/03/2025 FINDINGS: CTA: Moderate cardiomegaly. No pleural effusion. Atherosclerosis of the thoracic aorta without aneurysm or dissection. No central pulmonary emboli. Suboptimal evaluation of the segmental and subsegmental branches secondary to contrast bolus timing. CT CHEST: Unremarkable thyroid. Calcified mediastinal nodes suggestive of prior granulomatous disease. Trace left pleural effusion. No pneumothorax. Moderate right hemidiaphragmatic elevation. Dependent bibasilar linear consolidations suggestive of atelectasis. No suspicious pulmonary nodules or masses. There are few subpleural apical nodules measuring up to 3 mm bilaterally which are of low clinical suspicion. No acute upper abdominal abnormality. 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 Midthoracic dextroscoliosis. IMPRESSION: 1. No central pulmonary emboli identified. 2. Trace left pleural effusion with dependent bibasilar consolidation suggestive of atelectasis. ACT 112: Negative or not required by law. The above report was generated using voice recognition software. It may contain grammatical, syntax or spelling errors. Electronically signed by: Bobby Mercado M.D. 02/05/2025 11:36 AM Abdomen/Pelvis CT 02/05/25 19:05 CT ABDOMEN and PELVIS with INTRAVENOUS CONTRAST HISTORY: Abdominal pain TECHNIQUE: CT abdomen and pelvis with contrast. IV CONTRAST: 100 mL of OMNIPAQUE 300 ENTERIC CONTRAST: Not Given COMPARISON: FINDINGS: LOWER CHEST: Mildly enlarged heart. Coronary and valvular calcifications. Bibasilar atelectasis. LIVER: No focal lesion identified. Hepatic steatosis GALLBLADDER/BILIARY: Unremarkable gallbladder. No abnormal biliary dilatation. SPLEEN: Unremarkable. PANCREAS: Atrophic. Cystic changes on the pancreas may represent IPMN's ADRENALS: Unremarkable. KIDNEYS: Atrophic kidneys bilaterally. Cortical cysts. Excreted contrast limits evaluation for small stones. No hydronephrosis. Bilateral mild perinephric stranding. PERITONEUM/RETROPERITONEUM. No lymphadenopathy by size criteria. No aortic aneurysm. Moderate atherosclerosis IVC filter in place. Presacral fluid is not specific. GASTROINTESTINAL: No obstruction. Surgical sutures are again seen along the stomach. Duodenal diverticula. Colonic diverticulosis without evidence of diverticulitis. There is a moderate-sized stool ball resulting in impaction of the rectal vault. Mild perirectal inflammation is also present. Upstream, there is a moderate stool burden in the colon. REPRODUCTIVE: No suspicious pelvic masses identified URINARY BLADDER: Acosta catheter in place. Mild wall thickening ABDOMINAL WALL: Anasarca. Apparent central filling defect in the left femoral vein. Question DVT. If warranted, DVT ultrasound may be obtained for further evaluation BONES: No acute findings. IMPRESSION: Findings suggesting mild stercoral colitis and mild upstream constipation. Apparent central filling defect in the left femoral vein. Question DVT. If warranted, DVT ultrasound may be obtained for further evaluation Electronically signed by Gilberto Fields 02-05-2025 8:30 PM
--- NOTE | 2025-02-08 12:32 | Magnetic Resonance Report ---
MRI OF THE RIGHT ANKLE WITHOUT CONTRAST CLINICAL HISTORY: Right heel ulcer. Evaluate for osteomyelitis. COMPARISON STUDY: Right foot radiographs February 02, 2025. TECHNIQUE: Utilizing a 1.5 Nedra magnet and dedicated coil, multiplanar, multiecho imaging of the rig ht ankle was performed without intravenous contrast. FINDINGS: Extensive postoperative findings within the right ankle and hindfoot are noted including fu charlie of the subtalar, tibiotalar and calcaneocuboid articulations. Artifact from the surgical hardwar e compromises evaluation of the right ankle. Comment there is no marrow edema to suggest acute osteom yelitis within the right ankle, right hindfoot or right midfoot. Chronic deformity of the right ankle is noted. A right heel wound is present. No associated fluid collection is present to suggest absces s. Achilles tendon and plantar fascia are intact. The flexor, extensor and peroneal tendons are gross ly intact. Intrinsic ligaments of the right ankle are not well assessed on this exam. There is mild s ubcutaneous edema of the right ankle and foot. No fluid collections are identified. No acute fracture s are identified. IMPRESSION: 1. Status post right ankle/hindfoot fusion, as described above. 2. Exam compromised by artifact from the surgical hardware however no evidence for acute osteomyeliti s within the right ankle, hindfoot or midfoot. 3. Heel wound. No associated fluid collection to suggest abscess. ACT 112: Negative or not required by law. Electronically signed by: Kevin Castillo M.D. 02/08/2025 12:30 PM
--- NOTE | 2025-02-08 13:17 | Psychiatric Consultation ---
Date of Consultation February 08, 2025 Impression / Recommendations Impression Diagnostically consistent with adjustment disorder with mixed anxiety and depressed mood vs MDD and EMILY vs delirium (but reportedly some of the mood symptoms occurred prior to recent medical decompensation). Diagnostic clarification limited somewhat by her cognitive impairment and difficulty participating with full symptom review. However, given her depressive symptoms, difficulty with sleep and anxiety it's reasonable to start a medication to help with this and she consents to this. Mirtazapine is generally well tolerated, helps with sleep, depression, anxiety and can improve nausea. One concern is her ongoing hyponatremia, which could certainly be contributing to her cognitive deficits/confusion. All antidepressant medications carry a risk of worsening hyponatremia so this should be monitored closely. A stimulant medication like modafinil is contraindicated at this time given her poor po intake and could worsen anxiety. Acute risk of self-harm is low given denial of current SI, future-oriented, has supportive family. Chronic risk is moderate given depression and chronic medical conditions. Overall, I spent a total of 60 minutes with this case including review of chart records, review of labwork, review of EKG QTc, direct evaluation of the patient at bedside, counseling the patient, discussion of the patient with the Nurse and with the hospitalist provider, discussion with the psychiatric liason during clinical rounds, and documentation in the electronic health record. (1) Depression: (2) Anxiety: (3) Nausea: (4) Acute UTI: Plan -Start mirtazapine 7.5mg HS po and increase to 15mg HS after 5-7 days if tolerated, continue to closely monitor sodium and if hyponatremia worsens then discontinue Psych History Identifying Data 79-year-old woman with past med history significant fortype 2 diabetes, CKD stage III, gout, hyperlipidemia, pancreatic cyst, congenital hiatus hernia, history of recurrent DVT, history of pulmonary embolism, primary hypercoagulable state, status post IVC filter, right bundle branch block, nonrheumatic arctic valve stenosis, hypertension, post gastric surgery syndrome, history of multiple gastric polyps, eczema, osteoporosis, who lives at home with her comes because of weakness. Psychiatry consulted for depression. Chief Complaint "Yes I have been ". History of Present Illness Shikha reports feeling depressed and anxious "see my arm is shaky" which she attributes to "all my ailments". She can not offer spontaneous examples of depression but when asked about specific symptoms endorses poor sleep, low motiv ation, anhedonia, low energy and periods of passive SI. Denies denies any current SI. Per RN she is often tearful when talking about her . She has memory deficits on assessment telling me she can't remember certain details about past medications or recent events and at times responds to certain questions with seemingly unrelated information. She reports ongoing nausea and that she has a good appetite but can't eat. She is willing to try a medication to help with depression and anxiety. Allergies Allergy/AdvReac Type Severity Reaction Status Date / Time No Known Allergies Allergy Verified 02/02/25 00:03 Home Medications Medication Instructions Recorded Confirmed Type triamcinolone acetonide 0.1 % 1 appln topical BID PRN Skin 04/20/19 02/02/25 History topical cream Irritation alendronate 70 mg tablet 70 mg PO WK #4 tabs 11/25/23 02/02/25 Rx allopurinol 100 mg tablet 100 mg PO DAILY #30 tabs 11/25/23 02/02/25 Rx aspirin 81 mg tablet,delayed 81 mg PO DAILY #30 tabs 11/25/23 02/02/25 Rx release cholecalciferol (vitamin D3) 50 2,000 units PO DAILY #30 tabs 11/25/23 02/02/25 Rx mcg (2,000 unit) tablet colestipol 1 gram tablet 1 gm PO BID #60 tabs 11/25/23 02/02/25 Rx dulaglutide 1.5 mg/0.5 mL 1.5 mg (0.5 mL) subcut WK #2 mL 11/25/23 02/02/25 Rx subcutaneous pen injector (Trulicity) metformin 500 mg tablet,extended 500 mg PO BID #60 tabs 11/25/23 02/02/25 Rx release 24 hr metoprolol tartrate 25 mg tablet 25 mg PO BID #60 tabs 11/25/23 02/02/25 Rx pantoprazole 20 mg tablet,delayed 20 mg PO DAILY #30 tabs 11/25/23 02/02/25 Rx release ascorbic acid (vitamin C) 500 mg 500 mg PO DAILY 02/02/25 02/02/25 History tablet (Vitamin C) atorvastatin 20 mg tablet 20 mg PO QAM 02/02/25 02/02/25 History enoxaparin 60 mg/0.6 mL 50 mg subcut Q24H 02/02/25 02/02/25 History subcutaneous syringe ferrous sulfate 325 mg (65 mg 325 mg PO BID 02/02/25 02/02/25 History iron) tablet lidocaine 4 % topical patch 1 patch topical DAILY PRN LOWER 02/02/25 02/02/25 History BACK PAIN olmesartan 5 mg tablet (Benicar) 5 mg PO DAILY 02/02/25 02/02/25 History omega [id number]-fish oil 1,000 mg 1 cap PO DAILY 02/02/25 02/02/25 History (120 mg-180 mg) capsule (Fish Oil) Patient History Medical History Hiatal hernia Peptic ulcer Postgastric surgery syndrome Endometrial cancer D&C in -1979 Age related osteoporosis Urinary tract infection Aortic stenosis Presence of IVC filter Hyperlipidemia Surgical History History of femoropopliteal bypass S/P VAN (total abdominal hysterectomy) History of cataract surgery S/P repair of paraesophageal hernia History of incisional hernia repair S/P AAA repair Family History Mother Hypertension Social History Smoking Status: Never smoker Second Hand Exposure: No; Do You Dip or Chew Tobacco: No; Hx Alcohol Use: No Hx Substance Use: No Preferred Language: Pashto Communication Ability: Effective Visual Impairment: Limited Hearing Ability: Use of Hearing Aid Hardware Trainer Required: No Beliefs That Will Affect Care: None marital status: Current Living Situation: Spouse Current Living Situation Comment: with current occupational status: retired and disabled How many Children do You have: 1 How many Children do You have Comment: Daughter is local, pt's and daughter able to assist with care as needed. Feels Safe at Home: Yes Diet: regular caffeine: Yes Assistive Devices: Walker and Wheelchair Physical Exam Vital Signs (Past 24 Hours): Last Vital Signs Temp 37.2 C 02/08/25 10:54 Pulse 84 02/08/25 10:54 Resp 20 02/08/25 10:54 BP 149/87 H 02/08/25 10:54 Pulse Ox 95 02/08/25 10:54 O2 Del Method Room Air 02/08/25 10:54 Results & Data (PSY) Medications Administered Acetaminophen (Acetaminophen 325 Mg Tab) 650 mg PO Q4H PRN PRN Reason: pain/fever Stop: 03/04/25 03:17 Last Admin: 02/08/25 10:08 Dose: 650 mg Documented By: Admin: 02/08/25 03:05 Dose: 650 mg Documented By: Admin: 02/07/25 21:47 Dose: 650 mg Documented By: Admin: 02/07/25 13:48 Dose: 650 mg Documented By: Admin: 02/07/25 05:57 Dose: 650 mg Documented By: Admin: 02/06/25 21:18 Dose: 650 mg Documented By: Admin: 02/05/25 19:53 Dose: 650 mg Documented By: Admin: 02/04/25 21:01 Dose: 650 mg Documented By: Admin: 02/04/25 16:38 Dose: 650 mg Documented By: Admin: 02/04/25 00:02 Dose: 650 mg Documented By: Admin: 02/03/25 00:46 Dose: 650 mg Documented By: ANDERSON Alendronate Sodium (Alendronate Sodium 70 Mg Tab) 70 mg PO We@0630 [facility] Stop: 03/09/25 06:29 Last Admin: 02/07/25 05:41 Dose: 70 mg Documented By: OLIVERIO Allopurinol (Allopurinol 100 Mg Tab) 100 mg PO DAILY [facility] Stop: 03/04/25 08:59 Last Admin: 02/08/25 10:11 Dose: 100 mg Documented By: Admin: 02/07/25 09:55 Dose: 100 mg Documented By: Admin: 02/06/25 08:17 Dose: 100 mg Documented By: Admin: 02/05/25 08:36 Dose: 100 mg Documented By: Admin: 02/04/25 08:14 Dose: 100 mg Documented By: Admin: 02/03/25 08:22 Dose: 100 mg Documented By: Admin: 02/02/25 08:25 Dose: 100 mg Documented By: YUMIKO Ascorbic Acid (Ascorbic Acid 500 Mg Tab) 500 mg PO DAILY [facility] Stop: 03/04/25 08:59 Last Admin: 02/08/25 10:11 Dose: 500 mg Documented By: Admin: 02/07/25 09:55 Dose: 500 mg Documented By: Admin: 02/06/25 08:17 Dose: 500 mg Documented By: Admin: 02/05/25 08:36 Dose: 500 mg Documented By: Admin: 02/04/25 08:15 Dose: 500 mg Documented By: Admin: 02/03/25 08:23 Dose: 500 mg Documented By: Admin: 02/02/25 08:26 Dose: 500 mg Documented By: YUMIKO Aspirin (Aspirin 81 Mg Ectab) 81 mg PO DAILY [facility] Stop: 03/04/25 08:59 Last Admin: 02/08/25 10:11 Dose: 81 mg Documented By: Admin: 02/07/25 09:56 Dose: 81 mg Documented By: Admin: 02/06/25 08:18 Dose: 81 mg Documented By: Admin: 02/05/25 08:36 Dose: 81 mg Documented By: Admin: 02/04/25 08:14 Dose: 81 mg Documented By: Admin: 02/03/25 08:22 Dose: 81 mg Documented By: Admin: 02/02/25 08:26 Dose: 81 mg Documented By: YUMIKO Atorvastatin Calcium (Atorvastatin 20 Mg Tab) 20 mg PO QAM [facility] Stop: 03/04/25 08:59 Last Admin: 02/08/25 10:11 Dose: 20 mg Documented By: Admin: 02/07/25 09:55 Dose: 20 mg Documented By: Admin: 02/06/25 08:16 Dose: 20 mg Documented By: Admin: 02/05/25 08:36 Dose: 20 mg Documented By: Admin: 02/04/25 08:14 Dose: 20 mg Documented By: Admin: 02/03/25 08:23 Dose: 20 mg Documented By: Admin: 02/02/25 08:26 Dose: 20 mg Documented By: YUMIKO Colestipol HCl (Colestipol Hcl 1 Gm Tab) 1 gm PO BID@1000,2200 [facility] Stop: 03/04/25 09:59 Last Admin: 02/07/25 21:49 Dose: 1 gm Documented By: Admin: 02/07/25 09:54 Dose: 1 gm Documented By: Admin: 02/06/25 23:59 Dose: Not Given Documented By: Admin: 02/06/25 08:16 Dose: 1 gm Documented By: Admin: 02/05/25 21:33 Dose: 1 gm Documented By: Admin: 02/05/25 11:16 Dose: 1 gm Documented By: Admin: 02/04/25 22:58 Dose: 1 gm Documented By: Admin: 02/04/25 09:22 Dose: 1 gm Documented By: Admin: 02/03/25 21:34 Dose: 1 gm Documented By: Admin: 02/03/25 10:41 Dose: 1 gm Documented By: Admin: 02/02/25 23:02 Dose: Not Given Documented By: Admin: 02/02/25 11:02 Dose: Not Given Documented By: YUMIKO Enoxaparin Sodium (Enoxaparin Inj 60 Mg/0.6 Ml Syr) 50 mg SQ Q24H [facility]; Protocol Stop: 03/04/25 06:59 Last Admin: 02/02/25 08:23 Dose: 50 mg Documented By: YUMIKO Ferrous Sulfate (Ferrous Sulfate 325 Mg Tab) 325 mg PO BID [facility] Stop: 03/04/25 08:59 Last Admin: 02/08/25 10:10 Dose: 325 mg Documented By: Admin: 02/07/25 21:48 Dose: 325 mg Documented By: Admin: 02/07/25 09:55 Dose: 325 mg Documented By: Admin: 02/06/25 21:18 Dose: 325 mg Documented By: Admin: 02/06/25 08:18 Dose: 325 mg Documented By: Admin: 02/05/25 19:53 Dose: 325 mg Documented By: Admin: 02/05/25 08:35 Dose: 325 mg Documented By: Admin: 02/04/25 21:01 Dose: 325 mg Documented By: Admin: 02/04/25 08:15 Dose: 325 mg Documented By: Admin: 02/03/25 20:25 Dose: 325 mg Documented By: Admin: 02/03/25 08:22 Dose: 325 mg Documented By: Admin: 02/02/25 21:30 Dose: 325 mg Documented By: Admin: 02/02/25 08:25 Dose: 325 mg Documented By: YUMIKO Heparin Sodium/Dextrose (Heparin 51810 Unit/500 Ml D5w) 25,000 units in 500 mls @ 0 mls/hr IV .Q0M [facility]; Protocol Stop: 03/05/25 02:14 Last Titration: 02/08/25 11:30 Dose: 0 units/hr, 0 mls/hr Documented By: RLG Co-signed By: TLM Titration: 02/08/25 09:45 Dose: 250 units/hr, 5 mls/hr Documented By: RLG Co-signed By: TLM Titration: 02/08/25 07:03 Dose: 250 units/hr, 5 mls/hr Documented By: RLG Co-signed By: ARTUR Titration: 02/07/25 19:10 Dose: 250 units/hr, 5 mls/hr Documented By: ARTUR Co-signed By: RLG Titration: 02/07/25 17:33 Dose: 250 units/hr, 5 mls/hr Documented By: RLG Co-signed By: TLM Titration: 02/07/25 08:08 Dose: 300 units/hr, 6 mls/hr Documented By: RLG Co-signed By: SHIP MANAGER Titration: 02/07/25 07:06 Dose: 300 units/hr, 6 mls/hr Documented By: RLG Co-signed By: KAG Titration: 02/06/25 07:33 Dose: 300 units/hr, 6 mls/hr Documented By: NENITA Co-signed By: ESL Titration: 02/06/25 06:53 Dose: 300 units/hr, 6 mls/hr Documented By: NENITA Co-signed By: KAG Titration: 02/06/25 00:50 Dose: 300 units/hr, 6 mls/hr Documented By: KACarlos Co-signed By: ANDERSON Titration: 02/05/25 23:49 Dose: 0 units/hr, 0 mls/hr Documented By: KACarlos Co-signed By: ARTUR Titration: 02/05/25 17:22 Dose: 400 units/hr, 8 mls/hr Documented By: MIO Co-signed By: LUDMILA Admin: 02/05/25 12:26 Dose: 500 units/hr, 10 mls/hr Documented By: MIO Co-signed By: RAJESH Titration: 02/05/25 12:25 Dose: Infused Documented By: MIO Co-signed By: ESL Titration: 02/05/25 10:26 Dose: 500 units/hr, 10 mls/hr Documented By: MIO Co-signed By: ESL Titration: 02/03/25 20:23 Dose: 450 units/hr, 9 mls/hr Documented By: OLIVERIO Co-signed By: SINDHU Titration: 02/03/25 15:00 Dose: 0 units/hr, 0 mls/hr Documented By: MIO Co-signed By: IVETTE Titration: 02/03/25 08:30 Dose: 650 units/hr, 13 mls/hr Documented By: MIO Co-signed By: RRR Titration: 02/03/25 06:23 Dose: 0 units/hr, 0 mls/hr Documented By: ANDERSON Co-signed By: RADHA Admin: 02/03/25 02:54 Dose: 800 units/hr, 16 mls/hr Documented By: ANDERSON Co-signed By: LEIGH Cefepime HCl 1,000 mg/ (Dextrose) 110 mls @ 36.667 mls/hr IV Q12H [facility]; Protocol Stop: 02/11/25 11:59 Last Infusion: 02/08/25 03:20 Dose: Infused Documented By: Admin: 02/08/25 00:02 Dose: 36.6 mls/hr Documented By: Infusion: 02/07/25 20:14 Dose: Infused Documented By: Admin: 02/07/25 16:11 Dose: 36.6 mls/hr Documented By: Infusion: 02/07/25 02:58 Dose: Infused Documented By: Admin: 02/06/25 23:52 Dose: 36.6 mls/hr Documented By: Infusion: 02/06/25 17:15 Dose: Infused Documented By: Admin: 02/06/25 13:06 Dose: 36.6 mls/hr Documented By: Infusion: 02/06/25 02:59 Dose: Infused Documented By: Admin: 02/05/25 23:51 Dose: 36.7 mls/hr Documented By: OLIVERIO Insulin Aspart (Insulin Aspart Per Unit Charge) 0 units SC ACHS [facility] Stop: 03/04/25 07:29 Last Admin: 02/08/25 10:09 Dose: Not Given Documented By: RLCarlos Admin: 02/07/25 21:56 Dose: Not Given Documented By: Admin: 02/07/25 18:15 Dose: Not Given Documented By: RLCarlos Admin: 02/07/25 13:28 Dose: 1 units Documented By: EUGENIO Co-signed By: SHIP MANAGER Admin: 02/07/25 09:59 Dose: 1 units Documented By: EUGENIO Co-signed By: RES Admin: 02/06/25 21:17 Dose: 1 units Documented By: OLIVERIO Co-signed By: MARCUS Admin: 02/06/25 17:11 Dose: Not Given Documented By: Admin: 02/06/25 13:03 Dose: Not Given Documented By: Admin: 02/06/25 09:05 Dose: Not Given Documented By: Admin: 02/05/25 21:33 Dose: 1 units Documented By: OLIVERIO Co-signed By: ARTUR Admin: 02/05/25 18:05 Dose: Not Given Documented By: [facility] Admin: 02/05/25 12:37 Dose: Not Given Documented By: [facility] Admin: 02/05/25 08:42 Dose: Not Given Documented By: [facility] Admin: 02/04/25 21:02 Dose: 1 units Documented By: OLIVERIO Co-signed By: SINDHU Admin: 02/04/25 17:30 Dose: Not Given Documented By: [facility] Admin: 02/04/25 12:44 Dose: 1 units Documented By: MIO Co-signed By: ASA Admin: 02/04/25 08:35 Dose: Not Given Documented By: [facility] Admin: 02/03/25 20:25 Dose: Not Given Documented By: OLIVERIO Co-signed By: SINDHU Admin: 02/03/25 17:48 Dose: Not Given Documented By: [facility] Admin: 02/03/25 12:57 Dose: 1 units Documented By: MIO Co-signed By: RRR Admin: 02/03/25 08:57 Dose: Not Given Documented By: MIO Co-signed By: RRR Admin: 02/02/25 21:30 Dose: 4 units Documented By: ANDERSON Co-signed By: LINSEY Admin: 02/02/25 17:48 Dose: Not Given Documented By: Admin: 02/02/25 13:41 Dose: 3 units Documented By: MATT Co-signed By: KERRY Admin: 02/02/25 08:33 Dose: Not Given Documented By: YUMIKO Lidocaine (Lidocaine 5% 1 Patch) 1 patch TD DAILY PRN PRN Reason: LOWER BACK PAIN Stop: 03/04/25 04:00 Last Admin: 02/03/25 08:24 Dose: 1 patch Documented By: MIO Losartan Potassium (Losartan Potassium 25 Mg Tab) 25 mg PO DAILY [facility] Stop: 03/05/25 08:59 Last Admin: 02/04/25 08:15 Dose: 25 mg Documented By: Admin: 02/03/25 08:22 Dose: 25 mg Documented By: MIO Metoclopramide HCl (Metoclopramide Hcl Inj 5 Mg/Ml 2 Ml Vial) 5 mg IV TIDM [facility] Stop: 03/08/25 16:59 Last Admin: 02/08/25 10:08 Dose: 5 mg Documented By: Admin: 02/07/25 18:11 Dose: 5 mg Documented By: Admin: 02/07/25 13:27 Dose: 5 mg Documented By: Admin: 02/07/25 09:53 Dose: 5 mg Documented By: Admin: 02/06/25 17:12 Dose: 5 mg Documented By: NENITA Metoprolol Tartrate (Metoprolol Tartrate 25 Mg Tab) 25 mg PO BID [facility] Stop: 03/04/25 08:59 Last Admin: 02/02/25 10:01 Dose: Not Given Documented By: YUMIKO Miscellaneous (Carbohydrates For Hypoglycemia ) 15 - 30 gm PO UD PRN PRN Reason: Hypoglycemia Protocol Stop: 03/04/25 03:17 Last Admin: 02/02/25 17:20 Dose: 15 gm Documented By: MATT Miscellaneous (Remove Lidoderm Patch) 1 each N/A DAILY@2100 [facility] Stop: 03/04/25 20:59 Last Admin: 02/07/25 21:56 Dose: 1 each Documented By: Admin: 02/06/25 23:54 Dose: Not Given Documented By: Admin: 02/05/25 21:38 Dose: Not Given Documented By: Admin: 02/04/25 21:02 Dose: 1 each Documented By: Admin: 02/03/25 20:26 Dose: 1 each Documented By: Admin: 02/02/25 21:33 Dose: Not Given Documented By: ANDERSON Pantoprazole Sodium (Pantoprazole 40 Mg Tab) 40 mg PO DAILY [facility] Stop: 03/04/25 08:59 Last Admin: 02/08/25 10:12 Dose: 40 mg Documented By: Admin: 02/07/25 09:59 Dose: 40 mg Documented By: Admin: 02/06/25 08:18 Dose: 40 mg Documented By: Admin: 02/05/25 08:36 Dose: 40 mg Documented By: Admin: 02/04/25 08:14 Dose: 40 mg Documented By: Admin: 02/03/25 08:22 Dose: 40 mg Documented By: Admin: 02/02/25 08:26 Dose: 40 mg Documented By: YUMIKO Polyethylene Glycol (Polyethylene (Miralax) 17 Gm Pack) 17 gm PO TID [facility] Stop: 03/08/25 07:44 Last Admin: 02/08/25 10:08 Dose: 17 gm Documented By: Admin: 02/07/25 21:49 Dose: 17 gm Documented By: Admin: 02/07/25 13:48 Dose: 17 gm Documented By: Admin: 02/07/25 09:52 Dose: 17 gm Documented By: Admin: 02/06/25 21:17 Dose: 17 gm Documented By: Admin: 02/06/25 13:07 Dose: Not Given Documented By: Admin: 02/06/25 08:15 Dose: 17 gm Documented By: NENITA Sennosides (Senna 8.6 Mg Tab) 8.6 mg PO QAM [facility] Stop: 03/07/25 14:44 Last Admin: 02/08/25 10:09 Dose: 8.6 mg Documented By: Admin: 02/07/25 09:53 Dose: 8.6 mg Documented By: Admin: 02/06/25 08:19 Dose: 8.6 mg Documented By: Admin: 02/05/25 15:21 Dose: 8.6 mg Documented By: MIO Trimethoprim/Sulfamethoxazole (Sulfamethoxazole/Trimethoprim Ds 800/160mg Tab) 1 tab PO DAILY [facility] Stop: 02/13/25 08:59 Last Admin: 02/08/25 10:11 Dose: 1 tab Documented By: Admin: 02/07/25 09:53 Dose: 1 tab Documented By: Admin: 02/06/25 09:06 Dose: Not Given Documented By: NENITA Trimethoprim/Sulfamethoxazole (Sulfa/Trimeth 400/80mg Tab) 1 tab PO DAILY [facility] Stop: 02/13/25 08:59 Last Admin: 02/08/25 10:10 Dose: 1 tab Documented By: Admin: 02/07/25 09:59 Dose: 1 tab Documented By: Admin: 02/06/25 08:15 Dose: 1 tab Documented By: NENITA Vitamin D (Cholecalciferol 25 Mcg (1000 Units) Tab) 50 mcg PO DAILY [facility] Stop: 03/04/25 08:59 Last Admin: 02/08/25 10:10 Dose: 50 mcg Documented By: Admin: 02/07/25 09:54 Dose: 50 mcg Documented By: Admin: 02/06/25 08:17 Dose: 50 mcg Documented By: Admin: 02/05/25 08:35 Dose: 50 mcg Documented By: Admin: 02/04/25 08:15 Dose: 50 mcg Documented By: Admin: 02/03/25 08:23 Dose: 50 mcg Documented By: [facility] Admin: 02/02/25 08:25 Dose: 50 mcg Documented By: YUMIKO Coding Level of Care Code 61141 IN/OBS CONSULT LVL 4,60M Diagnoses Depression F32.A Anxiety F41.9 Nausea R11.0 Acute UTI N39.0
[2025-02-08 21:50] LABS: ANTI-Xa, UFH(UnfractionatedHep 0.35 IU/ml (0.3-0.7)
[2025-02-08] MEDS: MIRTAZAPINE TAB 15 MG TAB PO SCH (21:55)
[2025-02-09 07:16] LABS: Hematocrit (blood only) 30.9 % (37.0-47.0); Hemoglobin 10.0 g/dl (12.0-16.0); Immature Granulocytes # (auto) 0.05 K/uL (0.01-0.20); Immature Granulocytes % (auto) 0.7 %; Mean Corpuscular Hemoglobin 30.8 pg (25.0-34.0); Mean Corpuscular Volume 95.1 fL (80.0-100.0); Platelet Count 278 K/uL (130-400); RDW Standard Deviation 52.2 fL (36.4-46.3); Red Blood Count 3.25 M/uL (4.20-5.40); White Blood Count 7.53 K/ul (4.8-10.8)
[2025-02-09 07:34] LABS: Anion Gap 5.0 (3-11); Blood Urea Nitrogen 49.0 mg/dl (6-23); Calcium 8.6 mg/dl (8.6-10.3); Carbon Dioxide 23.0 mmol/L (21-32); Chloride 105.0 mmol/L (98-107); Creatinine Clr Calc Pharmacy 18.7 ml/min; Glucose 85.0 mg/dl (70-99(Fasting)); Potassium 4.8 mmol/L (3.5-5.1); Sodium 133.0 mmol/L (136-145)
[2025-02-09 07:35] LABS: ANTI-Xa, UFH(UnfractionatedHep 0.37 IU/ml (0.3-0.7)
[2025-02-09] MEDS ORDERED: METOPROLOL TARTRATE 50 MG TAB PO SCH (07:45)
[2025-02-09] MEDS: METOPROLOL TARTRATE 25 MG TAB PO SCH (08:39)
--- NOTE | 2025-02-09 13:38 | Palliative Care Consultation ---
Date of Consultation February 09, 2025 Assessment & Plan (1) Weakness generalized: (2) Palliative care by specialist: Introduced Palliative Medicine and explained our role in patient's care. Patient and/or family were receptive to palliative services for goals of care discussions. Reviewed we are different from hospice, a home health nurse visiting service. Plan Shikha was minimally engaged in this visit and speech seemed non sensical/muttering though when asked some questions she would answer appropriately. She could not follow commands for me. Discussed with Dr Mesa, who had some different communication techniques to try with pt, so I will revisit her and try another approach in the coming days. I am available this weekend by telemed if a family meeting is desired by hospital iPad. Thank you for allowing us to participate in the ongoing care of this patient. Please page with any additional concerns. Rubén Mayes DNP Director, Palliative Medicine History of Present Illness Attending Physician: Ryan Mesa, DO History of Present Illness Shikha is a 79yo female admitted from home with c/o gen weakness of a few weeks PMH: diabetes, CKD stage III, gout, hyperlipidemia, pancreatic cyst, congenital hiatus hernia, history of recurrent DVT, history of pulmonary embolism, primary hypercoagulable state, status post IVC filter, right bundle branch block, nonrheumatic arctic valve stenosis, hypertension, post gastric surgery syndrome, history of multiple gastric polyps, eczema, osteoporosis Allergies Allergy/AdvReac Type Severity Reaction Status Date / Time No Known Allergies Allergy Verified 02/02/25 00:03 Home Medications Medication Instructions Recorded Confirmed Type triamcinolone acetonide 0.1 % 1 appln topical BID PRN Skin 04/20/19 02/02/25 History topical cream Irritation alendronate 70 mg tablet 70 mg PO WK #4 tabs 11/25/23 02/02/25 Rx allopurinol 100 mg tablet 100 mg PO DAILY #30 tabs 11/25/23 02/02/25 Rx aspirin 81 mg tablet,delayed 81 mg PO DAILY #30 tabs 11/25/23 02/02/25 Rx release cholecalciferol (vitamin D3) 50 2,000 units PO DAILY #30 tabs 11/25/23 02/02/25 Rx mcg (2,000 unit) tablet colestipol 1 gram tablet 1 gm PO BID #60 tabs 11/25/23 02/02/25 Rx dulaglutide 1.5 mg/0.5 mL 1.5 mg (0.5 mL) subcut WK #2 mL 11/25/23 02/02/25 Rx subcutaneous pen injector (Trulicity) metformin 500 mg tablet,extended 500 mg PO BID #60 tabs 11/25/23 02/02/25 Rx release 24 hr metoprolol tartrate 25 mg tablet 25 mg PO BID #60 tabs 11/25/23 02/02/25 Rx pantoprazole 20 mg tablet,delayed 20 mg PO DAILY #30 tabs 11/25/23 02/02/25 Rx release ascorbic acid (vitamin C) 500 mg 500 mg PO DAILY 02/02/25 02/02/25 History tablet (Vitamin C) atorvastatin 20 mg tablet 20 mg PO QAM 02/02/25 02/02/25 History enoxaparin 60 mg/0.6 mL 50 mg subcut Q24H 02/02/25 02/02/25 History subcutaneous syringe ferrous sulfate 325 mg (65 mg 325 mg PO BID 02/02/25 02/02/25 History iron) tablet lidocaine 4 % topical patch 1 patch topical DAILY PRN LOWER 02/02/25 02/02/25 History BACK PAIN olmesartan 5 mg tablet (Benicar) 5 mg PO DAILY 02/02/25 02/02/25 History omega [id number]-fish oil 1,000 mg 1 cap PO DAILY 02/02/25 02/02/25 History (120 mg-180 mg) capsule (Fish Oil) Patient History Medical History Hiatal hernia Peptic ulcer Postgastric surgery syndrome Endometrial cancer D&C in -1979 Age related osteoporosis Urinary tract infection Aortic stenosis Presence of IVC filter Hyperlipidemia Surgical History History of femoropopliteal bypass S/P VAN (total abdominal hysterectomy) History of cataract surgery S/P repair of paraesophageal hernia History of incisional hernia repair S/P AAA repair Family History Mother Hypertension Social History Smoking Status: Never smoker Second Hand Exposure: No; Do You Dip or Chew Tobacco: No; Hx Alcohol Use: No Hx Substance Use: No Preferred Language: Wallisian Communication Ability: Effective Visual Impairment: Limited Hearing Ability: Use of Hearing Aid Allergist/Immunologist Physician Required: No Beliefs That Will Affect Care: None marital status: Current Living Situation: Spouse Current Living Situation Comment: with current occupational status: retired and disabled How many Children do You have: 1 How many Children do You have Comment: Daughter is local, pt's and daughter able to assist with care as needed. Feels Safe at Home: Yes Diet: regular caffeine: Yes Assistive Devices: Walker and Wheelchair Review of Systems Review of Systems: Unobtainable due to cognitive status Physical Exam Physical Exam: chronically ill fatigued laying in bed, semi reclined, eyes closed minimal engagement non sensical/muttering speech chest dim but clear CV RRR abd soft, NTP, BS+ gen weakness +pallor Results & Data Vital Signs (Past 12 Hours) Vital Signs Temp Pulse Pulse Resp BP Pulse Ox O2 Del Method 02/09/25 11:39 36.7 C 57 L 18 158/82 H 97 Room Air 02/09/25 07:46 Room Air 02/09/25 07:42 36.6 C 71 18 172/90 H 96 Room Air 02/09/25 07:15 69 02/09/25 03:02 36.4 C L 71 18 184/89 H 97 Room Air Laboratory Results 02/09/25 02/09/25 02/09/25 Range/Units 11:47 07:53 06:41 WBC 7.53 (4.8-10.8) K/ul RBC 3.25 L (4.20-5.40) M/uL Hgb 10.0 L (12.0-16.0) g/dl Hct 30.9 L (37.0-47.0) % MCV 95.1 (80.0-100.0) fL MCH 30.8 (25.0-34.0) pg MCHC 32.4 (32.0-36.0) g/dL RDW Std Deviation 52.2 H (36.4-46.3) fL RDW Coeff of [place]ek[place] 14.9 H (11.5-14.5) % Plt Count 278 (130-400) K/uL MPV 10.9 (9.4-12.4) fL Immature Gran % (Auto) 0.7 % Neut % (Auto) 77.5 % Lymph % (Auto) 10.9 % White % (Auto) 9.6 % Eos % (Auto) 0.5 % Baso % (Auto) 0.8 % Neut # (Auto) 5.84 (1.40-6.50) K/uL Lymph # (Auto) 0.82 L (1.20-3.40) K/uL White # (Auto) 0.72 H (0.11-0.59) K/uL Eos # (Auto) 0.04 (0.00-0.50) K/uL Baso # (Auto) 0.06 (0.00-0.20) K/uL Immature Gran # (Auto) 0.05 (0.01-0.20) K/uL Echinocytes PT (9.0-12.0) Seconds INR (0.9-1.1) APTT (21-31) Seconds PTT Ratio Heparin Anti-Xa, Unfract 0.37 (0.3-0.7) IU/ml Sodium 133 L (136-145) mmol/L Potassium 4.8 (3.5-5.1) mmol/L Chloride 105 (98-107) mmol/L Carbon Dioxide 23 (21-32) mmol/L Anion Gap 5 (3-11) BUN 49 H (6-23) mg/dl Creatinine 1.82 H (0.6-1.2) mg/dl Est Cr Clr Drug Dosing 18.7 ml/min eGFR 28.28 BUN/Creatinine Ratio 26.9 H (10-20) Glucose 85 (70-99(Fasting)) mg/dl POC Glucose 118 H 139 H (70-99) mg/dl Calcium 8.6 (8.6-10.3) mg/dl Phosphorus (2.5-4.9) mg/dl Magnesium (1.7-2.4) mg/dl Troponin I High Sens (0-14) pg/ml Random Cortisol mcg/dl Staphylococcus sp PCR (NotDetected) Bld Cult ID Panel PCR (NotDetected) 02/08/25 02/08/25 02/08/25 Range/Units 20:22 20:18 17:29 WBC (4.8-10.8) K/ul RBC (4.20-5.40) M/uL Hgb (12.0-16.0) g/dl Hct (37.0-47.0) % MCV (80.0-100.0) fL MCH (25.0-34.0) pg MCHC (32.0-36.0) g/dL RDW Std Deviation (36.4-46.3) fL RDW Coeff of [place] (11.5-14.5) % Plt Count (130-400) K/uL MPV (9.4-12.4) fL Immature Gran % (Auto) % Neut % (Auto) % Lymph % (Auto) % White % (Auto) % Eos % (Auto) % Baso % (Auto) % Neut # (Auto) (1.40-6.50) K/uL Lymph # (Auto) (1.20-3.40) K/uL White # (Auto) (0.11-0.59) K/uL Eos # (Auto) (0.00-0.50) K/uL Baso # (Auto) (0.00-0.20) K/uL Immature Gran # (Auto) (0.01-0.20) K/uL Echinocytes PT (9.0-12.0) Seconds INR (0.9-1.1) APTT (21-31) Seconds PTT Ratio Heparin Anti-Xa, Unfract 0.35 (0.3-0.7) IU/ml Sodium (136-145) mmol/L Potassium (3.5-5.1) mmol/L Chloride (98-107) mmol/L Carbon Dioxide (21-32) mmol/L Anion Gap (3-11) BUN (6-23) mg/dl Creatinine (0.6-1.2) mg/dl Est Cr Clr Drug Dosing ml/min eGFR BUN/Creatinine Ratio (10-20) Glucose (70-99(Fasting)) mg/dl POC Glucose 94 96 (70-99) mg/dl Calcium (8.6-10.3) mg/dl Phosphorus (2.5-4.9) mg/dl Magnesium (1.7-2.4) mg/dl Troponin I High Sens (0-14) pg/ml Random Cortisol mcg/dl Staphylococcus sp PCR (NotDetected) Bld Cult ID Panel PCR (NotDetected) 02/08/25 02/08/25 02/08/25 Range/Units 13:04 07:47 07:31 WBC 8.05 (4.8-10.8) K/ul RBC 3.33 L (4.20-5.40) M/uL Hgb 10.5 L (12.0-16.0) g/dl Hct 31.9 L (37.0-47.0) % MCV 95.8 (80.0-100.0) fL MCH 31.5 (25.0-34.0) pg MCHC 32.9 (32.0-36.0) g/dL RDW Std Deviation 51.1 H (36.4-46.3) fL RDW Coeff of [place] 14.8 H (11.5-14.5) % Plt Count 289 (130-400) K/uL MPV 11.0 (9.4-12.4) fL Immature Gran % (Auto) % Neut % (Auto) % Lymph % (Auto) % White % (Auto) % Eos % (Auto) % Baso % (Auto) % Neut # (Auto) (1.40-6.50) K/uL Lymph # (Auto) (1.20-3.40) K/uL White # (Auto) (0.11-0.59) K/uL Eos # (Auto) (0.00-0.50) K/uL Baso # (Auto) (0.00-0.20) K/uL Immature Gran # (Auto) (0.01-0.20) K/uL Echinocytes PT (9.0-12.0) Seconds INR (0.9-1.1) APTT (21-31) Seconds PTT Ratio Heparin Anti-Xa, Unfract 0.45 (0.3-0.7) IU/ml Sodium 130 L (136-145) mmol/L Potassium 5.5 H (3.5-5.1) mmol/L Chloride 103 (98-107) mmol/L Carbon Dioxide 22 (21-32) mmol/L Anion Gap 5 (3-11) BUN 51 H (6-23) mg/dl Creatinine 1.80 H (0.6-1.2) mg/dl Est Cr Clr Drug Dosing 20.0 ml/min eGFR 28.66 BUN/Creatinine Ratio 28.3 H (10-20) Glucose 115 H (70-99(Fasting)) mg/dl POC Glucose 170 H 131 H (70-99) mg/dl Calcium 8.6 (8.6-10.3) mg/dl Phosphorus (2.5-4.9) mg/dl Magnesium (1.7-2.4) mg/dl Troponin I High Sens (0-14) pg/ml Random Cortisol mcg/dl Staphylococcus sp PCR (NotDetected) Bld Cult ID Panel PCR (NotDetected) 02/07/25 02/07/25 02/07/25 Range/Units 23:36 21:00 20:07 WBC (4.8-10.8) K/ul RBC (4.20-5.40) M/uL Hgb (12.0-16.0) g/dl Hct (37.0-47.0) % MCV (80.0-100.0) fL MCH (25.0-34.0) pg MCHC (32.0-36.0) g/dL RDW Std Deviation (36.4-46.3) fL RDW Coeff of [place] (11.5-14.5) % Plt Count (130-400) K/uL MPV (9.4-12.4) fL Immature Gran % (Auto) % Neut % (Auto) % Lymph % (Auto) % White % (Auto) % Eos % (Auto) % Baso % (Auto) % Neut # (Auto) (1.40-6.50) K/uL Lymph # (Auto) (1.20-3.40) K/uL White # (Auto) (0.11-0.59) K/uL Eos # (Auto) (0.00-0.50) K/uL Baso # (Auto) (0.00-0.20) K/uL Immature Gran # (Auto) (0.01-0.20) K/uL Echinocytes PT (9.0-12.0) Seconds INR (0.9-1.1) APTT (21-31) Seconds PTT Ratio Heparin Anti-Xa, Unfract 0.46 (0.3-0.7) IU/ml Sodium 129 L (136-145) mmol/L Potassium 5.7 H (3.5-5.1) mmol/L Chloride 101 (98-107) mmol/L Carbon Dioxide 19 L (21-32) mmol/L Anion Gap 9 (3-11) BUN 46 H (6-23) mg/dl Creatinine 1.72 H (0.6-1.2) mg/dl Est Cr Clr Drug Dosing 21.0 ml/min eGFR 30.27 BUN/Creatinine Ratio 26.7 H (10-20) Glucose 136 H (70-99(Fasting)) mg/dl POC Glucose 112 H (70-99) mg/dl Calcium 8.8 (8.6-10.3) mg/dl Phosphorus (2.5-4.9) mg/dl Magnesium (1.7-2.4) mg/dl Troponin I High Sens (0-14) pg/ml Random Cortisol mcg/dl Staphylococcus sp PCR (NotDetected) Bld Cult ID Panel PCR (NotDetected) 02/07/25 02/07/25 02/07/25 Range/Units 16:27 15:50 14:17 WBC (4.8-10.8) K/ul RBC (4.20-5.40) M/uL Hgb (12.0-16.0) g/dl Hct (37.0-47.0) % MCV (80.0-100.0) fL MCH (25.0-34.0) pg MCHC (32.0-36.0) g/dL RDW Std Deviation (36.4-46.3) fL RDW Coeff of [place] (11.5-14.5) % Plt Count (130-400) K/uL MPV (9.4-12.4) fL Immature Gran % (Auto) % Neut % (Auto) % Lymph % (Auto) % White % (Auto) % Eos % (Auto) % Baso % (Auto) % Neut # (Auto) (1.40-6.50) K/uL Lymph # (Auto) (1.20-3.40) K/uL White # (Auto) (0.11-0.59) K/uL Eos # (Auto) (0.00-0.50) K/uL Baso # (Auto) (0.00-0.20) K/uL Immature Gran # (Auto) (0.01-0.20) K/uL Echinocytes PT (9.0-12.0) Seconds INR (0.9-1.1) APTT (21-31) Seconds PTT Ratio Heparin Anti-Xa, Unfract 0.75 H* Cancelled (0.3-0.7) IU/ml Sodium 129 L (136-145) mmol/L Potassium 5.8 H (3.5-5.1) mmol/L Chloride 102 (98-107) mmol/L Carbon Dioxide 19 L (21-32) mmol/L Anion Gap 8 (3-11) BUN 47 H (6-23) mg/dl Creatinine 1.73 H (0.6-1.2) mg/dl Est Cr Clr Drug Dosing 20.9 ml/min eGFR 30.06 BUN/Creatinine Ratio 27.2 H (10-20) Glucose 90 (70-99(Fasting)) mg/dl POC Glucose 95 (70-99) mg/dl Calcium 9.0 (8.6-10.3) mg/dl Phosphorus (2.5-4.9) mg/dl Magnesium (1.7-2.4) mg/dl Troponin I High Sens (0-14) pg/ml Random Cortisol mcg/dl Staphylococcus sp PCR (NotDetected) Bld Cult ID Panel PCR (NotDetected) 02/07/25 02/07/25 02/07/25 Range/Units 13:12 11:41 08:00 WBC (4.8-10.8) K/ul RBC (4.20-5.40) M/uL Hgb (12.0-16.0) g/dl Hct (37.0-47.0) % MCV (80.0-100.0) fL MCH (25.0-34.0) pg MCHC (32.0-36.0) g/dL RDW Std Deviation (36.4-46.3) fL RDW Coeff of [place] (11.5-14.5) % Plt Count (130-400) K/uL MPV (9.4-12.4) fL Immature Gran % (Auto) % Neut % (Auto) % Lymph % (Auto) % White % (Auto) % Eos % (Auto) % Baso % (Auto) % Neut # (Auto) (1.40-6.50) K/uL Lymph # (Auto) (1.20-3.40) K/uL White # (Auto) (0.11-0.59) K/uL Eos # (Auto) (0.00-0.50) K/uL Baso # (Auto) (0.00-0.20) K/uL Immature Gran # (Auto) (0.01-0.20) K/uL Echinocytes PT (9.0-12.0) Seconds INR (0.9-1.1) APTT (21-31) Seconds PTT Ratio Heparin Anti-Xa, Unfract (0.3-0.7) IU/ml Sodium (136-145) mmol/L Potassium (3.5-5.1) mmol/L Chloride (98-107) mmol/L Carbon Dioxide (21-32) mmol/L Anion Gap (3-11) BUN (6-23) mg/dl Creatinine (0.6-1.2) mg/dl Est Cr Clr Drug Dosing ml/min eGFR BUN/Creatinine Ratio (10-20) Glucose (70-99(Fasting)) mg/dl POC Glucose 156 H 157 H (70-99) mg/dl Calcium (8.6-10.3) mg/dl Phosphorus (2.5-4.9) mg/dl Magnesium (1.7-2.4) mg/dl Troponin I High Sens (0-14) pg/ml Random Cortisol 29.15 mcg/dl Staphylococcus sp PCR (NotDetected) Bld Cult ID Panel PCR (NotDetected) 02/07/25 02/06/25 02/06/25 Range/Units 06:11 20:38 16:44 WBC 11.96 H (4.8-10.8) K/ul RBC 3.51 L (4.20-5.40) M/uL Hgb 11.3 L (12.0-16.0) g/dl Hct 33.0 L (37.0-47.0) % MCV 94.0 (80.0-100.0) fL MCH 32.2 (25.0-34.0) pg MCHC 34.2 (32.0-36.0) g/dL RDW Std Deviation 51.0 H (36.4-46.3) fL RDW Coeff of [place] 14.8 H (11.5-14.5) % Plt Count 333 (130-400) K/uL MPV 11.5 (9.4-12.4) fL Immature Gran % (Auto) 0.4 % Neut % (Auto) 87.0 % Lymph % (Auto) 6.7 % White % (Auto) 4.9 % Eos % (Auto) 0.2 % Baso % (Auto) 0.8 % Neut # (Auto) 10.40 H (1.40-6.50) K/uL Lymph # (Auto) 0.80 L (1.20-3.40) K/uL White # (Auto) 0.59 (0.11-0.59) K/uL Eos # (Auto) 0.02 (0.00-0.50) K/uL Baso # (Auto) 0.10 (0.00-0.20) K/uL Immature Gran # (Auto) 0.05 (0.01-0.20) K/uL Echinocytes PT (9.0-12.0) Seconds INR (0.9-1.1) APTT (21-31) Seconds PTT Ratio Heparin Anti-Xa, Unfract 0.61 (0.3-0.7) IU/ml Sodium 130 L (136-145) mmol/L Potassium 5.8 H (3.5-5.1) mmol/L Chloride 103 (98-107) mmol/L Carbon Dioxide 20 L (21-32) mmol/L Anion Gap 7 (3-11) BUN 46 H (6-23) mg/dl Creatinine 1.57 H D (0.6-1.2) mg/dl Est Cr Clr Drug Dosing 23.0 ml/min eGFR 33.77 BUN/Creatinine Ratio 29.3 H (10-20) Glucose 115 H (70-99(Fasting)) mg/dl POC Glucose 183 H 89 (70-99) mg/dl Calcium 8.6 (8.6-10.3) mg/dl Phosphorus 2.7 (2.5-4.9) mg/dl Magnesium 2.0 (1.7-2.4) mg/dl Troponin I High Sens (0-14) pg/ml Random Cortisol mcg/dl Staphylococcus sp PCR (NotDetected) Bld Cult ID Panel PCR (NotDetected) 02/06/25 02/06/25 02/06/25 Range/Units 11:52 07:15 06:41 WBC (4.8-10.8) K/ul RBC (4.20-5.40) M/uL Hgb (12.0-16.0) g/dl Hct (37.0-47.0) % MCV (80.0-100.0) fL MCH (25.0-34.0) pg MCHC (32.0-36.0) g/dL RDW Std Deviation (36.4-46.3) fL RDW Coeff of [place] (11.5-14.5) % Plt Count (130-400) K/uL MPV (9.4-12.4) fL Immature Gran % (Auto) % Neut % (Auto) % Lymph % (Auto) % White % (Auto) % Eos % (Auto) % Baso % (Auto) % Neut # (Auto) (1.40-6.50) K/uL Lymph # (Auto) (1.20-3.40) K/uL White # (Auto) (0.11-0.59) K/uL Eos # (Auto) (0.00-0.50) K/uL Baso # (Auto) (0.00-0.20) K/uL Immature Gran # (Auto) (0.01-0.20) K/uL Echinocytes PT (9.0-12.0) Seconds INR (0.9-1.1) APTT (21-31) Seconds PTT Ratio Heparin Anti-Xa, Unfract 0.70 (0.3-0.7) IU/ml Sodium (136-145) mmol/L Potassium (3.5-5.1) mmol/L Chloride (98-107) mmol/L Carbon Dioxide (21-32) mmol/L Anion Gap (3-11) BUN (6-23) mg/dl Creatinine (0.6-1.2) mg/dl Est Cr Clr Drug Dosing ml/min eGFR BUN/Creatinine Ratio (10-20) Glucose (70-99(Fasting)) mg/dl POC Glucose 117 H 100 H (70-99) mg/dl Calcium (8.6-10.3) mg/dl Phosphorus (2.5-4.9) mg/dl Magnesium (1.7-2.4) mg/dl Troponin I High Sens (0-14) pg/ml Random Cortisol mcg/dl Staphylococcus sp PCR (NotDetected) Bld Cult ID Panel PCR (NotDetected) 02/05/25 02/05/25 02/05/25 Range/Units 22:46 20:56 16:14 WBC (4.8-10.8) K/ul RBC (4.20-5.40) M/uL Hgb (12.0-16.0) g/dl Hct (37.0-47.0) % MCV (80.0-100.0) fL MCH (25.0-34.0) pg MCHC (32.0-36.0) g/dL RDW Std Deviation (36.4-46.3) fL RDW Coeff of [place] (11.5-14.5) % Plt Count (130-400) K/uL MPV (9.4-12.4) fL Immature Gran % (Auto) % Neut % (Auto) % Lymph % (Auto) % White % (Auto) % Eos % (Auto) % Baso % (Auto) % Neut # (Auto) (1.40-6.50) K/uL Lymph # (Auto) (1.20-3.40) K/uL White # (Auto) (0.11-0.59) K/uL Eos # (Auto) (0.00-0.50) K/uL Baso # (Auto) (0.00-0.20) K/uL Immature Gran # (Auto) (0.01-0.20) K/uL Echinocytes PT (9.0-12.0) Seconds INR (0.9-1.1) APTT (21-31) Seconds PTT Ratio Heparin Anti-Xa, Unfract 0.85 H* (0.3-0.7) IU/ml Sodium (136-145) mmol/L Potassium (3.5-5.1) mmol/L Chloride (98-107) mmol/L Carbon Dioxide (21-32) mmol/L Anion Gap (3-11) BUN (6-23) mg/dl Creatinine (0.6-1.2) mg/dl Est Cr Clr Drug Dosing ml/min eGFR BUN/Creatinine Ratio (10-20) Glucose (70-99(Fasting)) mg/dl POC Glucose 194 H 138 H (70-99) mg/dl Calcium (8.6-10.3) mg/dl Phosphorus (2.5-4.9) mg/dl Magnesium (1.7-2.4) mg/dl Troponin I High Sens (0-14) pg/ml Random Cortisol mcg/dl Staphylococcus sp PCR (NotDetected) Bld Cult ID Panel PCR (NotDetected) 02/05/25 02/05/25 02/05/25 Range/Units 15:27 12:04 08:01 WBC (4.8-10.8) K/ul RBC (4.20-5.40) M/uL Hgb (12.0-16.0) g/dl Hct (37.0-47.0) % MCV (80.0-100.0) fL MCH (25.0-34.0) pg MCHC (32.0-36.0) g/dL RDW Std Deviation (36.4-46.3) fL RDW Coeff of [place] (11.5-14.5) % Plt Count (130-400) K/uL MPV (9.4-12.4) fL Immature Gran % (Auto) % Neut % (Auto) % Lymph % (Auto) % White % (Auto) % Eos % (Auto) % Baso % (Auto) % Neut # (Auto) (1.40-6.50) K/uL Lymph # (Auto) (1.20-3.40) K/uL White # (Auto) (0.11-0.59) K/uL Eos # (Auto) (0.00-0.50) K/uL Baso # (Auto) (0.00-0.20) K/uL Immature Gran # (Auto) (0.01-0.20) K/uL Echinocytes PT (9.0-12.0) Seconds INR (0.9-1.1) APTT (21-31) Seconds PTT Ratio Heparin Anti-Xa, Unfract 0.86 H* (0.3-0.7) IU/ml Sodium (136-145) mmol/L Potassium (3.5-5.1) mmol/L Chloride (98-107) mmol/L Carbon Dioxide (21-32) mmol/L Anion Gap (3-11) BUN (6-23) mg/dl Creatinine (0.6-1.2) mg/dl Est Cr Clr Drug Dosing ml/min eGFR BUN/Creatinine Ratio (10-20) Glucose (70-99(Fasting)) mg/dl POC Glucose 105 H 79 (70-99) mg/dl Calcium (8.6-10.3) mg/dl Phosphorus (2.5-4.9) mg/dl Magnesium (1.7-2.4) mg/dl Troponin I High Sens (0-14) pg/ml Random Cortisol mcg/dl Staphylococcus sp PCR (NotDetected) Bld Cult ID Panel PCR (NotDetected) 02/05/25 02/04/25 02/04/25 Range/Units 06:57 20:21 16:58 WBC 9.46 (4.8-10.8) K/ul RBC 3.43 L (4.20-5.40) M/uL Hgb 11.2 L (12.0-16.0) g/dl Hct 33.2 L (37.0-47.0) % MCV 96.8 (80.0-100.0) fL MCH 32.7 (25.0-34.0) pg MCHC 33.7 (32.0-36.0) g/dL RDW Std Deviation 53.0 H (36.4-46.3) fL RDW Coeff of Bek[place] 14.7 H (11.5-14.5) % Plt Count 255 (130-400) K/uL MPV 11.4 (9.4-12.4) fL Immature Gran % (Auto) 0.6 % Neut % (Auto) 83.1 % Lymph % (Auto) 9.1 % White % (Auto) 5.9 % Eos % (Auto) 0.8 % Baso % (Auto) 0.5 % Neut # (Auto) 7.85 H (1.40-6.50) K/uL Lymph # (Auto) 0.86 L (1.20-3.40) K/uL White # (Auto) 0.56 (0.11-0.59) K/uL Eos # (Auto) 0.08 (0.00-0.50) K/uL Baso # (Auto) 0.05 (0.00-0.20) K/uL Immature Gran # (Auto) 0.06 (0.01-0.20) K/uL Echinocytes PT (9.0-12.0) Seconds INR (0.9-1.1) APTT (21-31) Seconds PTT Ratio Heparin Anti-Xa, Unfract 0.26 L (0.3-0.7) IU/ml Sodium 136 (136-145) mmol/L Potassium 5.1 (3.5-5.1) mmol/L Chloride 109 H (98-107) mmol/L Carbon Dioxide 24 (21-32) mmol/L Anion Gap 3 (3-11) BUN 48 H (6-23) mg/dl Creatinine 1.22 H (0.6-1.2) mg/dl Est Cr Clr Drug Dosing 27.9 ml/min eGFR 45.71 BUN/Creatinine Ratio 39.3 H (10-20) Glucose 95 (70-99(Fasting)) mg/dl POC Glucose 174 H 83 (70-99) mg/dl Calcium 8.4 L (8.6-10.3) mg/dl Phosphorus 2.4 L (2.5-4.9) mg/dl Magnesium 1.9 (1.7-2.4) mg/dl Troponin I High Sens 15.3 H (0-14) pg/ml Random Cortisol mcg/dl Staphylococcus sp PCR (NotDetected) Bld Cult ID Panel PCR (NotDetected) 02/04/25 02/04/25 02/04/25 Range/Units 12:02 07:59 02:29 WBC 13.54 H (4.8-10.8) K/ul RBC 3.70 L (4.20-5.40) M/uL Hgb 11.7 L (12.0-16.0) g/dl Hct 36.0 L (37.0-47.0) % MCV 97.3 (80.0-100.0) fL MCH 31.6 (25.0-34.0) pg MCHC 32.5 (32.0-36.0) g/dL RDW Std Deviation 52.0 H (36.4-46.3) fL RDW Coeff of [place] 14.5 (11.5-14.5) % Plt Count 275 (130-400) K/uL MPV 11.2 (9.4-12.4) fL Immature Gran % (Auto) % Neut % (Auto) % Lymph % (Auto) % White % (Auto) % Eos % (Auto) % Baso % (Auto) % Neut # (Auto) (1.40-6.50) K/uL Lymph # (Auto) (1.20-3.40) K/uL White # (Auto) (0.11-0.59) K/uL Eos # (Auto) (0.00-0.50) K/uL Baso # (Auto) (0.00-0.20) K/uL Immature Gran # (Auto) (0.01-0.20) K/uL Echinocytes PT (9.0-12.0) Seconds INR (0.9-1.1) APTT (21-31) Seconds PTT Ratio Heparin Anti-Xa, Unfract 0.33 (0.3-0.7) IU/ml Sodium 137 (136-145) mmol/L Potassium 4.9 (3.5-5.1) mmol/L Chloride 109 H (98-107) mmol/L Carbon Dioxide 23 (21-32) mmol/L Anion Gap 5 (3-11) BUN 42 H (6-23) mg/dl Creatinine 1.09 (0.6-1.2) mg/dl Est Cr Clr Drug Dosing 29.8 ml/min eGFR 52.32 BUN/Creatinine Ratio 38.5 H (10-20) Glucose 108 H (70-99(Fasting)) mg/dl POC Glucose 179 H 79 (70-99) mg/dl Calcium 8.4 L (8.6-10.3) mg/dl Phosphorus 2.2 L (2.5-4.9) mg/dl Magnesium 1.9 (1.7-2.4) mg/dl Troponin I High Sens (0-14) pg/ml Random Cortisol mcg/dl Staphylococcus sp PCR (NotDetected) Bld Cult ID Panel PCR (NotDetected) 02/03/25 02/03/2502/03/25 Range/Units 20:39 20:06 19:21 WBC (4.8-10.8) K/ul RBC (4.20-5.40) M/uL Hgb (12.0-16.0) g/dl Hct (37.0-47.0) % MCV (80.0-100.0) fL MCH (25.0-34.0) pg MCHC (32.0-36.0) g/dL RDW Std Deviation (36.4-46.3) fL RDW Coeff of [place] (11.5-14.5) % Plt Count (130-400) K/uL MPV (9.4-12.4) fL Immature Gran % (Auto) % Neut % (Auto) % Lymph % (Auto) % White % (Auto) % Eos % (Auto) % Baso % (Auto) % Neut # (Auto) (1.40-6.50) K/uL Lymph # (Auto) (1.20-3.40) K/uL White # (Auto) (0.11-0.59) K/uL Eos # (Auto) (0.00-0.50) K/uL Baso # (Auto) (0.00-0.20) K/uL Immature Gran # (Auto) (0.01-0.20) K/uL Echinocytes PT (9.0-12.0) Seconds INR (0.9-1.1) APTT (21-31) Seconds PTT Ratio Heparin Anti-Xa, Unfract 0.50 (0.3-0.7) IU/ml Sodium (136-145) mmol/L Potassium (3.5-5.1) mmol/L Chloride (98-107) mmol/L Carbon Dioxide (21-32) mmol/L Anion Gap (3-11) BUN (6-23) mg/dl Creatinine (0.6-1.2) mg/dl Est Cr Clr Drug Dosing ml/min eGFR BUN/Creatinine Ratio (10-20) Glucose (70-99(Fasting)) mg/dl POC Glucose 93 72 (70-99) mg/dl Calcium (8.6-10.3) mg/dl Phosphorus (2.5-4.9) mg/dl Magnesium (1.7-2.4) mg/dl Troponin I High Sens (0-14) pg/ml Random Cortisol mcg/dl Staphylococcus sp PCR (NotDetected) Bld Cult ID Panel PCR (NotDetected) 02/03/25 02/03/25 02/03/25 Range/Units 16:58 16:10 14:15 WBC (4.8-10.8) K/ul RBC (4.20-5.40) M/uL Hgb (12.0-16.0) g/dl Hct (37.0-47.0) % MCV (80.0-100.0) fL MCH (25.0-34.0) pg MCHC (32.0-36.0) g/dL RDW Std Deviation (36.4-46.3) fL RDW Coeff of [place] (11.5-14.5) % Plt Count (130-400) K/uL MPV (9.4-12.4) fL Immature Gran % (Auto) % Neut % (Auto) % Lymph % (Auto) % White % (Auto) % Eos % (Auto) % Baso % (Auto) % Neut # (Auto) (1.40-6.50) K/uL Lymph # (Auto) (1.20-3.40) K/uL White # (Auto) (0.11-0.59) K/uL Eos # (Auto) (0.00-0.50) K/uL Baso # (Auto) (0.00-0.20) K/uL Immature Gran # (Auto) (0.01-0.20) K/uL Echinocytes PT (9.0-12.0) Seconds INR (0.9-1.1) APTT (21-31) Seconds PTT Ratio Heparin Anti-Xa, Unfract 0.87 H* 1.12 H* (0.3-0.7) IU/ml Sodium (136-145) mmol/L Potassium (3.5-5.1) mmol/L Chloride (98-107) mmol/L Carbon Dioxide (21-32) mmol/L Anion Gap (3-11) BUN (6-23) mg/dl Creatinine (0.6-1.2) mg/dl Est Cr Clr Drug Dosing ml/min eGFR BUN/Creatinine Ratio (10-20) Glucose (70-99(Fasting)) mg/dl POC Glucose 90 (70-99) mg/dl Calcium (8.6-10.3) mg/dl Phosphorus (2.5-4.9) mg/dl Magnesium (1.7-2.4) mg/dl Troponin I High Sens (0-14) pg/ml Random Cortisol mcg/dl Staphylococcus sp PCR (NotDetected) Bld Cult ID Panel PCR (NotDetected) 02/03/25 02/03/25 02/03/25 Range/Units 11:54 07:43 05:33 WBC 8.75 (4.8-10.8) K/ul RBC 3.21 L (4.20-5.40) M/uL Hgb 10.4 L (12.0-16.0) g/dl Hct 30.6 L (37.0-47.0) % MCV 95.3 (80.0-100.0) fL MCH 32.4 (25.0-34.0) pg MCHC 34.0 (32.0-36.0) g/dL RDW Std Deviation 48.9 H (36.4-46.3) fL RDW Coeff of [place] 13.9 (11.5-14.5) % Plt Count 235 (130-400) K/uL MPV 11.2 (9.4-12.4) fL Immature Gran % (Auto) 0.5 % Neut % (Auto) 90.3 % Lymph % (Auto) 4.6 % White % (Auto) 4.3 % Eos % (Auto) 0.1 % Baso % (Auto) 0.2 % Neut # (Auto) 7.90 H (1.40-6.50) K/uL Lymph # (Auto) 0.40 L (1.20-3.40) K/uL White # (Auto) 0.38 (0.11-0.59) K/uL Eos # (Auto) 0.01 (0.00-0.50) K/uL Baso # (Auto) 0.02 (0.00-0.20) K/uL Immature Gran # (Auto) 0.04 (0.01-0.20) K/uL Echinocytes 1+ PT (9.0-12.0) Seconds INR (0.9-1.1) APTT (21-31) Seconds PTT Ratio Heparin Anti-Xa, Unfract 1.00 H* (0.3-0.7) IU/ml Sodium 137 (136-145) mmol/L Potassium 5.2 H (3.5-5.1) mmol/L Chloride 109 H (98-107) mmol/L Carbon Dioxide 22 (21-32) mmol/L Anion Gap 6 (3-11) BUN 46 H (6-23) mg/dl Creatinine 1.14 (0.6-1.2) mg/dl Est Cr Clr Drug Dosing 28.4 ml/min eGFR 49.58 BUN/Creatinine Ratio 40.4 H (10-20) Glucose 116 H (70-99(Fasting)) mg/dl POC Glucose 179 H 137 H (70-99) mg/dl Calcium 8.1 L (8.6-10.3) mg/dl Phosphorus 2.2 L (2.5-4.9) mg/dl Magnesium 1.9 (1.7-2.4) mg/dl Troponin I High Sens (0-14) pg/ml Random Cortisol mcg/dl Staphylococcus sp PCR (NotDetected) Bld Cult ID Panel PCR (NotDetected) 02/03/25 02/03/25 02/03/25 Range/Units 02:32 01:35 01:14 WBC 9.37 (4.8-10.8) K/ul RBC 3.40 L (4.20-5.40) M/uL Hgb 10.5 L (12.0-16.0) g/dl Hct 33.1 L (37.0-47.0) % MCV 97.4 (80.0-100.0) fL MCH 30.9 (25.0-34.0) pg MCHC 31.7 L (32.0-36.0) g/dL RDW Std Deviation 51.0 H (36.4-46.3) fL RDW Coeff of Bek[place] 14.3 (11.5-14.5) % Plt Count 227 (130-400) K/uL MPV 10.9 (9.4-12.4) fL Immature Gran % (Auto) 0.7 % Neut % (Auto) 90.6 % Lymph % (Auto) 3.6 % White % (Auto) 4.7 % Eos % (Auto) 0.1 % Baso % (Auto) 0.3 % Neut # (Auto) 8.48 H (1.40-6.50) K/uL Lymph # (Auto) 0.34 L (1.20-3.40) K/uL White # (Auto) 0.44 (0.11-0.59) K/uL Eos # (Auto) 0.01 (0.00-0.50) K/uL Baso # (Auto) 0.03 (0.00-0.20) K/uL Immature Gran # (Auto) 0.07 (0.01-0.20) K/uL Echinocytes 1+ PT 10.6 (9.0-12.0) Seconds INR 1.0 (0.9-1.1) APTT 29 (21-31) Seconds PTT Ratio 1.1 Heparin Anti-Xa, Unfract (0.3-0.7) IU/ml Sodium (136-145) mmol/L Potassium (3.5-5.1) mmol/L Chloride (98-107) mmol/L Carbon Dioxide (21-32) mmol/L Anion Gap (3-11) BUN (6-23) mg/dl Creatinine (0.6-1.2) mg/dl Est Cr Clr Drug Dosing ml/min eGFR BUN/Creatinine Ratio (10-20) Glucose 80 (70-99(Fasting)) mg/dl POC Glucose 47 L* (70-99) mg/dl Calcium (8.6-10.3) mg/dl Phosphorus (2.5-4.9) mg/dl Magnesium (1.7-2.4) mg/dl Troponin I High Sens (0-14) pg/ml Random Cortisol mcg/dl Staphylococcus sp PCR (NotDetected) Bld Cult ID Panel PCR (NotDetected) 02/03/25 02/03/25 02/02/25 Range/Units 00:51 00:49 20:46 WBC (4.8-10.8) K/ul RBC (4.20-5.40) M/uL Hgb (12.0-16.0) g/dl Hct (37.0-47.0) % MCV (80.0-100.0) fL MCH (25.0-34.0) pg MCHC (32.0-36.0) g/dL RDW Std Deviation (36.4-46.3) fL RDW Coeff of [place] (11.5-14.5) % Plt Count (130-400) K/uL MPV (9.4-12.4) fL Immature Gran % (Auto) % Neut % (Auto) % Lymph % (Auto) % White % (Auto) % Eos % (Auto) % Baso % (Auto) % Neut # (Auto) (1.40-6.50) K/uL Lymph # (Auto) (1.20-3.40) K/uL White # (Auto) (0.11-0.59) K/uL Eos # (Auto) (0.00-0.50) K/uL Baso # (Auto) (0.00-0.20) K/uL Immature Gran # (Auto) (0.01-0.20) K/uL Echinocytes PT (9.0-12.0) Seconds INR (0.9-1.1) APTT (21-31) Seconds PTT Ratio Heparin Anti-Xa, Unfract (0.3-0.7) IU/ml Sodium (136-145) mmol/L Potassium (3.5-5.1) mmol/L Chloride (98-107) mmol/L Carbon Dioxide (21-32) mmol/L Anion Gap (3-11) BUN (6-23) mg/dl Creatinine (0.6-1.2) mg/dl Est Cr Clr Drug Dosing ml/min eGFR BUN/Creatinine Ratio (10-20) Glucose (70-99(Fasting)) mg/dl POC Glucose 43 L* 43 L* 249 H (70-99) mg/dl Calcium (8.6-10.3) mg/dl Phosphorus (2.5-4.9) mg/dl Magnesium (1.7-2.4) mg/dl Troponin I High Sens (0-14) pg/ml Random Cortisol mcg/dl Staphylococcus sp PCR (NotDetected) Bld Cult ID Panel PCR (NotDetected) 02/02/25 02/02/25 02/02/25 Range/Units 19:21 17:46 17:05 WBC (4.8-10.8) K/ul RBC (4.20-5.40) M/uL Hgb (12.0-16.0) g/dl Hct (37.0-47.0) % MCV (80.0-100.0) fL MCH (25.0-34.0) pg MCHC (32.0-36.0) g/dL RDW Std Deviation (36.4-46.3) fL RDW Coeff of [place] (11.5-14.5) % Plt Count (130-400) K/uL MPV (9.4-12.4) fL Immature Gran % (Auto) % Neut % (Auto) % Lymph % (Auto) % White % (Auto) % Eos % (Auto) % Baso % (Auto) % Neut # (Auto) (1.40-6.50) K/uL Lymph # (Auto) (1.20-3.40) K/uL White # (Auto) (0.11-0.59) K/uL Eos # (Auto) (0.00-0.50) K/uL Baso # (Auto) (0.00-0.20) K/uL Immature Gran # (Auto) (0.01-0.20) K/uL Echinocytes PT (9.0-12.0) Seconds INR (0.9-1.1) APTT (21-31) Seconds PTT Ratio Heparin Anti-Xa, Unfract (0.3-0.7) IU/ml Sodium (136-145) mmol/L Potassium (3.5-5.1) mmol/L Chloride (98-107) mmol/L Carbon Dioxide (21-32) mmol/L Anion Gap (3-11) BUN (6-23) mg/dl Creatinine (0.6-1.2) mg/dl Est Cr Clr Drug Dosing ml/min eGFR BUN/Creatinine Ratio (10-20) Glucose (70-99(Fasting)) mg/dl POC Glucose 76 69 L* (70-99) mg/dl Calcium (8.6-10.3) mg/dl Phosphorus (2.5-4.9) mg/dl Magnesium (1.7-2.4) mg/dl Troponin I High Sens 19.7 H (0-14) pg/ml Random Cortisol mcg/dl Staphylococcus sp PCR (NotDetected) Bld Cult ID Panel PCR (NotDetected) 02/02/25 02/02/25 Range/Units 17:05 13:13 WBC (4.8-10.8) K/ul RBC (4.20-5.40) M/uL Hgb (12.0-16.0) g/dl Hct (37.0-47.0) % MCV (80.0-100.0) fL MCH (25.0-34.0) pg MCHC (32.0-36.0) g/dL RDW Std Deviation (36.4-46.3) fL RDW Coeff of [place] (11.5-14.5) % Plt Count (130-400) K/uL MPV (9.4-12.4) fL Immature Gran % (Auto) % Neut % (Auto) % Lymph % (Auto) % White % (Auto) % Eos % (Auto) % Baso % (Auto) % Neut # (Auto) (1.40-6.50) K/uL Lymph # (Auto) (1.20-3.40) K/uL White # (Auto) (0.11-0.59) K/uL Eos # (Auto) (0.00-0.50) K/uL Baso # (Auto) (0.00-0.20) K/uL Immature Gran # (Auto) (0.01-0.20) K/uL Echinocytes PT (9.0-12.0) Seconds INR (0.9-1.1) APTT (21-31) Seconds PTT Ratio Heparin Anti-Xa, Unfract (0.3-0.7) IU/ml Sodium (136-145) mmol/L Potassium (3.5-5.1) mmol/L Chloride (98-107) mmol/L Carbon Dioxide (21-32) mmol/L Anion Gap (3-11) BUN (6-23) mg/dl Creatinine (0.6-1.2) mg/dl Est Cr Clr Drug Dosing ml/min eGFR BUN/Creatinine Ratio (10-20) Glucose (70-99(Fasting)) mg/dl POC Glucose 57 L* (70-99) mg/dl Calcium (8.6-10.3) mg/dl Phosphorus (2.5-4.9) mg/dl Magnesium (1.7-2.4) mg/dl Troponin I High Sens 19.5 H (0-14) pg/ml Random Cortisol mcg/dl Staphylococcus sp PCR DETECTED A (NotDetected) Bld Cult ID Panel PCR See PCR Comment (NotDetected) Diagnostic Findings Chest X-Ray 02/01/25 21:41 Exam(s): XR CXR 1 VIEW EXAM: XR Chest, 1 View CLINICAL HISTORY: Reason for exam: weakness. TECHNIQUE: Frontal view of the chest. COMPARISON: 11/21/23. FINDINGS: Lungs: No confluent consolidation or overt edema. Pleural space: No pleural effusion. No pneumothorax. Mediastinum: Unremarkable. Bones/joints: No acute fracture. Upper abdomen: IVC filter. IMPRESSION: No acute cardiopulmonary disease. Electronically signed by: Taz Garcia M.D. 02/01/25 22:39 PM Foot X-Ray 02/02/25 10:36 XR foot LT 2V CLINICAL HISTORY: heel wound, r/o osteo COMPARISON: None FINDINGS: There are atherosclerotic calcifications. There is osteopenia. There is bandage artifact at the heel. No evidence of osteomyelitis seen. No fracture or dislocation. IMPRESSION: No osteomyelitis seen. ACT 112: Negative or not required by law. Electronically signed by: Owen Bingham M.D. 02/02/2025 11:50 AM Foot X-Ray 02/02/25 11:41 RIGHT FOOT 2 VIEWS CLINICAL HISTORY: Heel wound. FINDINGS: AP and lateral views the right foot are obtained. Correlation is made with right ankle radiographs dated 11/16/2012. The skeletal structures are heterogeneously osteopenic. There is postsurgical change from ankle and hindfoot fusion. The orthopedic hardware appears intact. No acute fracture is identified. There is chronic posttraumatic deformity of the third proximal phalanx and the fourth metatarsal. Osteoarthritic change is seen throughout the forefoot. There is soft tissue edema throughout the foot with evidence of a heel /ulceration. No bony erosion is seen to suggest osteomyelitis. There is advanced atherosclerotic calcification of the regional arteries. IMPRESSION: 1. Diffuse soft tissue edema with no acute bony abnormality identified. 2. A heel ulcer/wound is noted. There is no clear radiographic evidence of osteomyelitis. 3. Osteopenia with postsurgical and degenerative change as above. Electronically signed by: Sunny Gaffney M.D. 02/02/2025 1:46 PM Duplex Scan Lower Extremity Artery 02/02/25 16:50 EXAM: US arterial duplex LE BI CLINICAL HISTORY: Heel wound. TECHNIQUE: Ultrasound examination of the bilateral lower extremities' arteries was performed in real time and duplex. One or more of the following were performed: spectral analysis, resistive index, waveform analysis, and pulsed Doppler. COMPARISON: None. 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 PROFESSOR) Triphasic 62.4 triphasic 26.3 Superficial Femoral Artery (SFA) Triphasic distally proximal: 80.9 Mid: 78.5 Distal: 46.7 - 6.8 Popliteal Artery (POP A) Biphasic 25.5 monophasic 13.8 Anterior tibial artery(ALEXANDER A) Biphasic mid: 27.2 Distal: 23.0 - prox/mid:7.7 distal: 12.4 Posterior Tibial Artery (VARNISH THINNER), proximal Biphasic 27.9 monophasic 9.6 Posterior Tibial Artery (VARNISH THINNER), distal Biphasic 44.1 monophaisc - Dorsalis Pedis Artery (DPA) Biphasic 24.1 monophasic 5.2 Mid peroneal Artery Biphasic 23.1 monophaisc - There is evidence of bilateral femoropopliteal grafting, which is patent on both sides. However, the [place] arteries on the left side are occluded and show biphasic and monophasic waveform patterns. Calcifications are identified in the arteries of both lower limbs. Additional Findings: Evidence of nonocclusive thrombus in both the femoral veins. Mild subcutaneous soft tissue edema in both lower limbs. IMPRESSION: 1. Evidence of bilateral femoropopliteal grafting, which is patent on both sides. However, the [place] arteries on the left side are occluded and show biphasic and monophasic waveform patterns. CT angiography is suggested for further evaluation. 2. Nonocclusive thrombus in both femoral veins. 3. However, correlation with prior imaging and surgical records is recommended. Electronically signed by Jeff Soto 02-03-2025 03:31 AM Venous Doppler Study 02/03/25 00:21 CR Exam(s): US VENOUS BILATERAL LOWER EXTREMITIES EXAM: US Duplex Bilateral Lower Extremities Veins CLINICAL HISTORY: Reason for exam: b/l edema. dvt. TECHNIQUE: Real-time duplex ultrasound scan of the bilateral lower extremity veins integrating B-mode two-dimensional vascular structure, Doppler spectral analysis, color flow Doppler imaging and compression. COMPARISON: No relevant prior studies available. FINDINGS: Right deep veins: Acute nonocclusive DVT proximal femoral vein. No DVT in the common femoral vein, mid or distal femoral vein, popliteal vein, or visualized calf veins; these veins demonstrate normal color flow signal and normal compressibility. Right superficial veins: No thrombus in the visualized right great saphenous vein. Left deep veins: Acute nonocclusive DVT in the common femoral, proximal middle and distal femoral, and popliteal veins. No DVT in the visualized calf veins which demonstrate normal color flow signal and normal compressibility. The peroneal vein is not visualized. DVT in the left common femoral, femoral, proximal deep femoral or popliteal veins. The veins demonstrate normal color flow, are normally compressible, with normal phasic flow and/or augmentation response. Left superficial veins: Left great saphenous vein is not evaluated. Soft tissues: No acute findings. IMPRESSION: 1. Acute nonocclusive DVT proximal right femoral vein. 2. Extensive acute nonocclusive DVT left common femoral vein, proximal, middle, and distal femoral vein, and popliteal vein. Communications: Verify Receipt with Nurse Electronically signed by: Maik Noriega M.D. 02/03/25 00:59 AM Chest CTA 02/05/25 09:08 CT angio chest PE protocol CT DOSE: 478.45 mGy.cm HISTORY: 79 years-old Female with PE. Acute shortness of breath with acute DVT TECHNIQUE: Multiple CTA images of the chest were obtained after the intravenous administration of 112 ml Optiray. Coronal and sagittal MIPS were obtained from the axial data set and were submitted for review. All measurements were obtained according to NASCET criteria. A dose lowering technique was utilized adhering to the principles of ALARA. COMPARISON: Duplex venous Doppler 02/03/2025 FINDINGS: CTA: Moderate cardiomegaly. No pleural effusion. Atherosclerosis of the thoracic aorta without aneurysm or dissection. No central pulmonary emboli. Suboptimal evaluation of the segmental and subsegmental branches secondary to contrast ruba us timing. CT CHEST: Unremarkable thyroid. Calcified mediastinal nodes suggestive of prior granulomatous disease. Trace left pleural effusion. No pneumothorax. Moderate right hemidiaphragmatic elevation. Dependent bibasilar linear consolidations suggestive of atelectasis. No suspicious pulmonary nodules or masses. There are few subpleural apical nodules measuring up to 3 mm bilaterally which are of low clinical suspicion. No acute upper abdominal abnormality. 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 Midthoracic dextroscoliosis. IMPRESSION: 1. No central pulmonary emboli identified. 2. Trace left pleural effusion with dependent bibasilar consolidation suggestive of atelectasis. ACT 112: Negative or not required by law. The above report was generated using voice recognition software. It may contain grammatical, syntax or spelling errors. Electronically signed by: Bobby Mercado M.D. 02/05/2025 11:36 AM Abdomen/Pelvis CT 02/05/25 19:05 CT ABDOMEN and PELVIS with INTRAVENOUS CONTRAST HISTORY: Abdominal pain TECHNIQUE: CT abdomen and pelvis with contrast. IV CONTRAST: 100 mL of OMNIPAQUE 300 ENTERIC CONTRAST: Not Given COMPARISON: FINDINGS: LOWER CHEST: Mildly enlarged heart. Coronary and valvular calcifications. Bibasilar atelectasis. LIVER: No focal lesion identified. Hepatic steatosis GALLBLADDER/BILIARY: Unremarkable gallbladder. No abnormal biliary dilatation. SPLEEN: Unremarkable. PANCREAS: Atrophic. Cystic changes on the pancreas may represent IPMN's ADRENALS: Unremarkable. KIDNEYS: Atrophic kidneys bilaterally. Cortical cysts. Excreted contrast limits evaluation for small stones. No hydronephrosis. Bilateral mild perinephric stranding. PERITONEUM/RETROPERITONEUM. No lymphadenopathy by size criteria. No aortic aneurysm. Moderate atherosclerosis IVC filter in place. Presacral fluid is not specific. GASTROINTESTINAL: No obstruction. Surgical sutures are again seen along the stomach. Duodenal diverticula. Colonic diverticulosis without evidence of diverticulitis. There is a moderate-sized stool ball resulting in impaction of the rectal vault. Mild perirectal inflammation is also present. Upstream, there is a moderate stool burden in the colon. REPRODUCTIVE: No suspicious pelvic masses identified URINARY BLADDER: Acosta catheter in place. Mild wall thickening ABDOMINAL WALL: Anasarca. Apparent central filling defect in the left femoral vein. Question DVT. If warranted, DVT ultrasound may be obtained for further evaluation BONES: No acute findings. IMPRESSION: Findings suggesting mild stercoral colitis and mild upstream constipation. Apparent central filling defect in the left femoral vein. Question DVT. If warranted, DVT ultrasound may be obtained for further evaluation Electronically signed by Gilberto Fields 02-05-2025 8:30 PM Ankle MRI 02/08/25 11:58 MRI OF THE RIGHT ANKLE WITHOUT CONTRAST CLINICAL HISTORY: Right heel ulcer. Evaluate for osteomyelitis. COMPARISON STUDY: Right foot radiographs February 02, 2025. TECHNIQUE: Utilizing a 1.5 Nedra magnet and dedicated coil, multiplanar, multiecho imaging of the right ankle was performed without intravenous contrast. FINDINGS: Extensive postoperative findings within the right ankle and hindfoot are noted including fusion of the subtalar, tibiotalar and calcaneocuboid articulations. Artifact from the surgical hardware compromises evaluation of the right ankle. Comment there is no marrow edema to suggest acute osteomyelitis within the right ankle, right hindfoot or right midfoot. Chronic deformity of the right ankle is noted. A right heel wound is present. No associated fluid collection is present to suggest abscess. Achilles tendon and plantar fascia are intact. The flexor, extensor and peroneal tendons are grossly intact. Intrinsic ligaments of the right ankle are not well assessed on this exam. There is mild subcutaneous edema of the right ankle and foot. No fluid collections are identified. No acute fractures are identified. IMPRESSION: 1. Status post right ankle/hindfoot fusion, as described above. 2. Exam compromised by artifact from the surgical hardware however no evidence for acute osteomyelitis within the right ankle, hindfoot or midfoot. 3. Heel wound. No associated fluid collection to suggest abscess. ACT 112: Negative or not required by law. Electronically signed by: Kevin Castillo M.D. 02/08/2025 12:30 PM PG Care Time/CCT Total # of Minutes Spent Total Time Spent with Patient: Total time spent is greater than 50% in coordination of care (as documented) at patient's floor/unit and/or counseling patient: I spent 65 minutes overall addressing this case: 15 min in medical data review/discussion with referring provider(s) and/or preparation for the visit 20 min in direct interaction with the patient/exam 00 min in Advance Care Planning/Goals of Care discussions as detailed above in note (must be >16min) 15 min in subsequent review and synthesis of assessment and plan 15 min communicating with other providers regarding the patient's case:primary team [place] [address] IN/OBS CONSULT LVL 4,60M Patient Type New Medical Decision Making High Complexity Diagnoses Weakness generalized R53.1 Palliative care by specialist Z51.5 Comment [id number]
--- NOTE | 2025-02-09 14:25 | Electrocardiogram Report ---
Test Reason : Blood Pressure : */* mmHG Vent. Rate : 75 BPM Atrial Rate : 75 BPM P-R Int : 226 ms QRS Dur : 120 ms QT Int : 422 ms P-R-T Axes : 77 -56 17 degrees QTcB Int : 471 ms Sinus rhythm with 1st degree A-V block Left axis deviation Right bundle branch block Inferior infarct (cited on or before 05-Feb-2025) Anterolateral infarct (cited on or before 05-Feb-2025) Abnormal ECG When compared with ECG of 05-Feb-2025 06:34, No significant change was found Confirmed by Rashid Simpson ([id number]) on 02/09/2025 2:25:28 PM Referred By: REFERRED SELF Confirmed By: Rashid Simpson
--- NOTE | 2025-02-09 15:30 | Hospitalist Progress Note ---
Date of Service February 09, 2025 Assessment & Plan (1) Acute UTI: Plan: In summary, 79-year-old female with past history significant for type 2 diabetes, CKD stage III, gout, hyperlipidemia, pancreatic cyst, congenital hiatus hernia, history of recurrent DVT, history of pulmonary embolism, primary hypercoagulable state, status post IVC filter, right bundle branch block, nonrheumatic arctic valve stenosis, hypertension, post gastric surgery syndrome, history of multiple gastric polyps, eczema, osteoporosis, who lives at home with her admitted for generalized weakness and UTI. Acute UTI Weakness possibly from UTI Empiric Rocephin at first then on cefepime d/t foot wound. Cefepime discontinued. ? Cefepime contributing to her confusion UC pos for E.coli History of recurrent DVT History of pulmonary embolism Hypercoagulable state Status post IVC filter Was on prophylactic Lovenox Lovenox dose recently adjusted to to 50 mg every 24 hours per anticoagulation clinic Now found to have acute dvt - and on IV heparin Venous doppler- Acute nonocclusive DVT proximal right femoral vein.. Extensive acute nonocclusive DVT left common femoral vein, proximal, middle, and distal femoral vein, and popliteal vein. Discussed w/ Dr. Nielsen (hematology) on 02/05 - will need to discuss with anticoag. clinic prior to DC as pt failed NOAC before and currently on lovenox 50 daily per anticoag.clinic. Mild elevation of troponin abnormal ekg will follow serial troponin and echo Echo - LV EF 60-65%. There is moderate concentric LVH. Aortic valve is moderately calcified. Bicuspid aortic valve cannot be excluded. Moderate to severe valvular aortic stenosis. There is mild mitral regurg. Doppler findings do not suggest pulm. hypertension. Compared to study in 2023 aortic valve syst. gradient has increased. Cardiology consulted - Beta-charis placed on hold due to bradycardia. Echocardiogram demonstrated moderate to severe aortic valve stenosis with increase in aortic valve systolic gradient. Recommendations: * Repeat resting 2D transthoracic echocardiogram in 6 months for surveillance of moderate to severe aortic valve stenosis. * Hold metoprolol. * Consider restarting at reduced dose, 25 mg daily, pending review of telemetry. * losartan to 25 mg daily but currently on hold. * Continue aspirin, statin, Heel wound XR of foot negative for osteo. MRI neg for osteo. D/C cefipime and no need for cipro per ID. Continue Bactrim until 02/11. Wound Cultx posit. for Pseudomonas, Serratia , Stenotrophomonas - pt abx changed to cefepime but discontinued with MRI results ID recs noted. MRI reviewed wound care and podiatry consulted Per podiatry - - Patient examined and evaluated. We discussed that this wound will take a while to heel and we should evaluate her vascular inflow while here inpatient. Arterial doppler exam for b/l LE ordered. Will help determine odds of healing the wound without further intervention. She will benefit from outpatient wound care when stable and discharged. We will continue to see her on a regular basis, as usual, when discharged as well. - Excisional wound debridement with scalpel at bedside. No necrotic, non-viable or infected tissue noted. Wound bed appears viable. - Dressed with Optifoam border gauze. Redress daily with similar. - Will follow; no further surgical intervention planned. - No need for continued hospitalization for the foot. Can be managed outpatient when stable otherwise. Arterial doppler- 1. Evidence of bilateral femoropopliteal grafting, which is patent on both sides. However, the kashia arteries on the left side are occluded and show biphasic and monophasic waveform patterns. CT angiography is suggested for further evaluation. 2. Nonocclusive thrombus in both femoral veins. 3. However, correlation with prior imaging and surgical records is recommended. Will consult with vasc. surgery (Dr. Naranjo) Weight loss, persistent nausea, poor oral intake There is a plan to hold trulicity by PCP per admission note Will cont. bowel regimen Obtained CT abdomen - No obstruction. Surgical sutures are again seen along the stomach. Duodenal diverticula. Colonic diverticulosis without evidence of diverticulitis. There is a moderate-sized stool ball resulting in impaction of the rectal vault. Mild perirectal inflammation is also present. Upstream, there is a moderate stool burden in the colon. Bowel regimen upgraded including added enema GI consulted CKD stage III Presented with creatinine1.8 today. 1.2 which is around baseline We will follow labs Wheelchair-bound History of recurrent falls Back pain Continue lidocaine patch Gout Allopurinol Chronic diastolic CHF Not on diuretics Will monitor Hypertension On metoprolol and Benicar, metoprolol on hold as above Will monitor Diabetes Hold trulicity and metformin Sliding scale Will monitor Current HbA1c level 6.6% GERD Protonix Hyperlipidemia On statin History of PVD s/p surgery On aspirin and statin will discuss with vasc. surgery as above History of endometrial cancer S/p surgery Hyperkalemia 4.8 on repeat on repeat today, post Lokelma Meds reviewed. Trend closely EKG w/o acute changes Depression Psychiatry consulted Palliative medicine consult I briefly spoke to the patient about goals of care. She seemed understand what we were discussing. She said she would be interested in hospice. Will discuss this with family. Patient has been accepted at [facility] for rehab. DVT prophylaxis On Lovenox -> now on IV heparin. Will have further discussions with anticoagulation team Dispo med/tele Full code. Total 55 minutes spent in care coordination for this patient Admission and Anticipated Discharge Date Admission Date: February 02, 2025 Subjective Chart, vital signs and data reviewed. Patient appetite not as good today. No vomiting per nursing. Chronic nausea from gastroparesis. Nursing feels she is less interactive today. K im today of discharge patient vitals have been stable. K improved post lokelma. Pt repeats phrases over and over again. When able to focus she is oriented x 3. Physical Exam Physical Exam: General- adult elderly female seen at bedside. Chronic ill appearance. Eyes- PERRL, EOMI, anicteric Neck- supple, no JVD, Lungs- clear to auscultation and percussion Heart- regular rhythm; Abdomen- normal bowel sounds, soft, nontender, no masses or hepatosplenomegaly Extremities- no pretibial edema, no calf tenderness; + small wound on heel of R foot Neuro- alert, oriented x person place month and day of week; PERRL, EOMI; no facial palsy; moves all extremities Skin- warm & dry Results & Data Results & Data Vital Signs (Past 12 Hours) Vital Signs Temp Pulse Pulse Resp BP Pulse Ox O2 Del Method 02/09/25 14:44 62 02/09/25 11:39 36.7 C 57 L 18 158/82 H 97 Room Air 02/09/25 07:46 Room Air 02/09/25 07:42 36.6 C 71 18 172/90 H 96 Room Air 02/09/25 07:15 69 Laboratory Results Short CBC 02/09/25 Range/Units 06:41 WBC 7.53 (4.8-10.8) K/ul Hgb 10.0 L (12.0-16.0) g/dl Hct 30.9 L (37.0-47.0) % Plt Count 278 (130-400) K/uL BMP 02/09/25 06:41 Sodium 133 L Potassium 4.8 Chloride 105 Carbon Dioxide 23 BUN 49 H Creatinine 1.82 H Glucose 85 Calcium 8.6
[2025-02-09] MEDS ORDERED: ENOXAPARIN 1.5 MG/KG SC SCH (15:45)
--- NOTE | 2025-02-09 16:33 | Communication Note ---
Date of Service: February 09, 2025 Spoke to Shikha about goals of care. She is oriented x 3 this afternoon during our discussion. Palliative medicine will return as well. We did discuss CODE STATUS again. She explicitly stated she does not want CPR or intubation. CODE STATUS is changed to DNR/DNI.
[2025-02-09] MEDS: ENOXAPARIN 80 MG/0.8 ML SYR SQ SCH (16:34)
[2025-02-10] MEDS ORDERED: HYDROmorphone INJ 0.5 MG/0.5 ML SYR IV STA (02:16)
--- NOTE | 2025-02-10 14:15 | Hospitalist Progress Note ---
Date of Service February 10, 2025 Assessment & Plan (1) Acute UTI: Plan: In summary, 79-year-old female with past history significant for type 2 diabetes, CKD stage III, gout, hyperlipidemia, pancreatic cyst, congenital hiatus hernia, history of recurrent DVT, history of pulmonary embolism, primary hypercoagulable state, status post IVC filter, right bundle branch block, nonrheumatic arctic valve stenosis, hypertension, post gastric surgery syndrome, history of multiple gastric polyps, eczema, osteoporosis, who lives at home with her admitted for generalized weakness and UTI. Acute UTI Weakness possibly from UTI Empiric Rocephin at first then on cefepime d/t foot wound. Cefepime discontinued. ? Cefepime contributing to her confusion UC pos for E.coli History of recurrent DVT History of pulmonary embolism Hypercoagulable state Status post IVC filter Was on prophylactic Lovenox Lovenox dose recently adjusted to to 50 mg every 24 hours per anticoagulation clinic Now found to have acute dvt - and on IV heparin Venous doppler- Acute nonocclusive DVT proximal right femoral vein.. Extensive acute nonocclusive DVT left common femoral vein, proximal, middle, and distal femoral vein, and popliteal vein. Discussed w/ Dr. Nielsen (hematology) on 02/05 - will need to discuss with anticoag. clinic prior to DC as pt failed NOAC before and currently on lovenox 50 daily per anticoag.clinic. I discussed this with Judith today. She has expressed that she does not want to be on Lovenox or anticoagulants when she is discharged to hospice at home. Mild elevation of troponin Echo - LV EF 60-65%. There is moderate concentric LVH. Aortic valve is moderately calcified. Bicuspid aortic valve cannot be excluded. Moderate to severe valvular aortic stenosis. There is mild mitral regurg. Doppler findings do not suggest pulm. hypertension. Compared to study in 2023 aortic valve syst. gradient has increased. Cardiology consulted - Beta-charis placed on hold due to bradycardia. Echocardiogram demonstrated moderate to severe aortic valve stenosis with increase in aortic valve systolic gradient. Recommendations: * Repeat resting 2D transthoracic echocardiogram in 6 months for surveillance of moderate to severe aortic valve stenosis. * Hold metoprolol. * Consider restarting at reduced dose, 25 mg daily, pending review of telemetry. * losartan to 25 mg daily but currently on hold. * Continue aspirin, statin, Heel wound XR of foot negative for osteo. MRI neg for osteo. D/C cefipime and no need for cipro per ID. Continue Bactrim until 02/11. Wound Cultx posit. for Pseudomonas, Serratia , Stenotrophomonas - pt abx changed to cefepime but discontinued with MRI results ID recs noted. MRI reviewed wound care and podiatry consulted Per podiatry - - Patient examined and evaluated. We discussed that this wound will take a while to heel and we should evaluate her vascular inflow while here inpatient. Arterial doppler exam for b/l LE ordered. Will help determine odds of healing the wound without further intervention. She will benefit from outpatient wound care when stable and discharged. We will continue to see her on a regular basis, as usual, when discharged as well. Weight loss, persistent nausea, poor oral intake There is a plan to hold trulicity by PCP per admission note Will cont. bowel regimen Obtained CT abdomen - No obstruction. Surgical sutures are again seen along the stomach. Duodenal diverticula. Colonic diverticulosis without evidence of diverticulitis. There is a moderate-sized stool ball resulting in impaction of the rectal vault. Mild perirectal inflammation is also present. Upstream, there is a moderate stool burden in the colon. Bowel regimen upgraded including added enema GI consulted CKD stage III Avoid nephrotoxins Gout Allopurinol Chronic diastolic CHF Not on diuretics Will monitor Hypertension On metoprolol and Benicar, metoprolol on hold as above Will monitor Diabetes Hold trulicity and metformin Sliding scale Will monitor Current HbA1c level 6.6% GERD Protonix Hyperlipidemia On statin History of PVD s/p surgery On aspirin and statin will discuss with vasc. surgery as above History of endometrial cancer S/p surgery Hyperkalemia 4.8 on repeat on repeat today, post Lokelma Meds reviewed. Trend closely EKG w/o acute changes Depression Psychiatry consulted Palliative medicine consulted I again spoke to the patient about goals of care. She understands the discussion. Her goals are to return home. She wants to go home with hospice. I discussed this with her spouse. He states that she has had a downhill course over the last 6 months. He and his daughter are in agreement for home hospice. They are both in the medical field and understand the discussion. [facility] been consulted. The plan is for discharge to home on Wednesday with hospice. Patient is wheelchair-or bed bound. She has severe aortic stenosis and heart failure DVT prophylaxis On Lovenox will discontinue at the time of discharge DNR/DNI now Total 51 minutes spent in care coordination for this patient Admission and Anticipated Discharge Date Admission Date: February 02, 2025 Subjective Chart, vital signs and data reviewed. Patient seen at bedside. She is tired and weak but answers questions appropriately and is oriented. No vomiting per nursing. Chronic nausea from gastroparesis. Patient has agreed to hospice level of care. Her family is in agreement. Physical Exam Physical Exam: General- adult elderly female seen at bedside. Chronic ill appearance. Eyes- PERRL, EOMI, anicteric Neck- supple, no JVD, Lungs- clear to auscultation and percussion Heart- regular rhythm; Abdomen- normal bowel sounds, soft, nontender, no masses or hepatosplenomegaly Extremities- no pretibial edema, no calf tenderness; + small wound on heel of R foot Neuro- alert, oriented x person place month and day of week; PERRL, EOMI; no facial palsy; moves all extremities Skin- warm & dry Results & Data Results & Data Vital Signs (Past 12 Hours) Vital Signs Temp Pulse Pulse Resp BP Pulse Ox O2 Del Method 02/10/25 11:23 36.5 C 62 16 167/97 H 97 Room Air 02/10/25 08:45 Room Air 02/10/25 07:38 36.4 C L 73 18 176/97 H 98 Room Air 02/10/25 07:09 70 02/10/25 02:38 36.7 C 64 18 175/90 H 98 Room Air
[2025-02-11 06:28] LABS: Hematocrit (blood only) 33.0 % (37.0-47.0); Hemoglobin 11.0 g/dl (12.0-16.0); Immature Granulocytes # (auto) 0.05 K/uL (0.01-0.20); Immature Granulocytes % (auto) 0.4 %; Mean Corpuscular Hemoglobin 32.0 pg (25.0-34.0); Mean Corpuscular Volume 95.9 fL (80.0-100.0); Platelet Count 289 K/uL (130-400); RDW Standard Deviation 51.7 fL (36.4-46.3); Red Blood Count 3.44 M/uL (4.20-5.40); White Blood Count 11.79 K/ul (4.8-10.8)
[2025-02-11] MEDS ORDERED: SOD PHOSPHATE/SOD BIPHOSPHATE ENEMA 132 ML BTL PR PRN (10:43)
--- NOTE | 2025-02-11 11:05 | Hospitalist Progress Note ---
Date of Service February 11, 2025 Assessment & Plan (1) Acute UTI: Plan: In summary, 79-year-old female with past history significant for type 2 diabetes, CKD stage III, gout, hyperlipidemia, pancreatic cyst, congenital hiatus hernia, history of recurrent DVT, history of pulmonary embolism, primary hypercoagulable state, status post IVC filter, right bundle branch block, nonrheumatic arctic valve stenosis, hypertension, post gastric surgery syndrome, history of multiple gastric polyps, eczema, osteoporosis, who lives at home with her admitted for generalized weakness and UTI. Acute UTI Empiric Rocephin at first then on cefepime d/t foot wound. Cefepime course completed UC pos for E.coli History of recurrent DVT History of pulmonary embolism Hypercoagulable state Status post IVC filter Was on prophylactic Lovenox Found to have acute dvt - and on placed on IV heparin Venous doppler- Acute nonocclusive DVT proximal right femoral vein.. Extensive acute nonocclusive DVT left common femoral vein, proximal, middle, and distal femoral vein, and popliteal vein. Discussed w/ Dr. Nielsen (hematology) on 02/05 - will need to discuss with anticoag. clinic prior to DC as pt failed NOAC before and currently on lovenox 50 daily per anticoag.clinic. I discussed this with Judith. She has expressed that she does not want to be on Lovenox or anticoagulants when she is discharged to hospice at home. Mild elevation of troponin Echo - LV EF 60-65%. There is moderate concentric LVH. Aortic valve is moderately calcified. Bicuspid aortic valve cannot be excluded. Moderate to severe valvular aortic stenosis. There is mild mitral regurg. Doppler findings do not suggest pulm. hypertension. Compared to study in 2023 aortic valve syst. gradient has increased. Cardiology consulted - Beta-charis placed initially on hold due to bradycardia. Tolerating lower dose now. Heel wound XR of foot negative for osteo. MRI neg for osteo. D/C cefipime and no need for cipro per ID. Continue Bactrim until 02/11. Wound Cultx posit. for Pseudomonas, Serratia , Stenotrophomonas - pt abx changed to cefepime but discontinued with MRI results ID recs noted. MRI reviewed wound care and podiatry consulted No further interventions planned by Podiatry or vascular surgery Weight loss, persistent nausea, poor oral intake Hold trulicity by PCP per admission note Cont. bowel regimen. Fleets today Obtained CT abdomen - No obstruction. Surgical sutures are again seen along the stomach. Duodenal diverticula. Colonic diverticulosis without evidence of diverticulitis. Bowel regimen upgraded including added enema GI consulted CKD stage III Avoid nephrotoxins Gout Allopurinol Chronic diastolic CHF Not on diuretics presently Will monitor Hypertension On metoprolol and losartan Will monitor Diabetes Holding trulicity and metformin Sliding scale Will monitor Current HbA1c level 6.6% GERD Protonix Hyperlipidemia On statin but consider discontinuation while on hospice History of PVD s/p surgery On aspirin and statin No plans for intervention by vascular surgery History of endometrial cancer S/p surgery Hyperkalemia Within normal limits post Lokelma Meds reviewed. EKG w/o acute changes Depression Psychiatry consulted Patient placed on mirtazapine Palliative medicine consulted Multiple discussions with the family and patient about goals of care. She understands the discussion. Her goals are to return home. She wants to go home with hospice. I discussed this with her spouse. He states that she has had a downhill course over the last 6 months.He and his daughter are in agreement for home hospice. They are both in the medical field and understand the discussion. [facility] been consulted. The plan is for discharge to home on Wednesday with hospice. Patient is wheelchair-or bed bound. She has severe aortic stenosis, severe gastroparesis, weight loss, failure to thrive and heart failure DVT prophylaxis On Lovenox will discontinue at the time of discharge DNR/DNI now Total 52 minutes spent in care coordination for this patient Admission and Anticipated Discharge Date Admission Date: February 02, 2025 Subjective Chart reviewed. Patient seen at bedside. She is tired and weak but answers questions appropriately and is oriented. No vomiting per nursing. Nursing reports constipation. Appetite better. Ate breakfast. Patient has agreed to hospice level of care. Her family is in agreement. She is looking forward to going home. Physical Exam Physical Exam: General- adult elderly female seen at bedside. Chronic ill appearance. Eyes- PERRL, EOMI, anicteric Lungs- clear to auscultation and percussion Heart- regular rhythm; Abdomen- normal bowel sounds, soft, nontender, no masses or hepatosplenomegaly Extremities- no pretibial edema, no calf tenderness; + small wound on heel of R foot Neuro- alert, oriented x person, place and month and day of week; PERRL, EOMI; moves all extremities Skin- warm & dry Results & Data Results & Data Vital Signs (Past 12 Hours) Vital Signs Temp Pulse Resp BP Pulse Ox O2 Del Method 02/11/25 09:21 Room Air 02/11/25 08:09 36.6 C 61 16 167/88 H 98 Room Air Laboratory Results Short CBC 02/11/25 Range/Units 05:45 WBC 11.79 H (4.8-10.8) K/ul Hgb 11.0 L (12.0-16.0) g/dl Hct 33.0 L (37.0-47.0) % Plt Count 289 (130-400) K/uL
[2025-02-11 23:21] VITALS: BP 129/85; PULSE 68; RESP 18; TEMP 97.7; O2SAT 96
--- NOTE | 2025-02-12 12:32 | Discharge Summary ---
Discharge Summary Date of Service February 12, 2025 Principal Dx & Hospital Course #1 = Principal Diagnosis (1) Acute UTI: Ms. Ricks is a 79-year-old female with past history significant for type 2 diabetes, CKD stage III, gout, hyperlipidemia, pancreatic cyst, congenital hiatus hernia, recurrent DVT, prior pulmonary embolism, primary hypercoagulable state s/p IVC filter, right bundle branch block, nonrheumatic arctic valve stenosis, hypertension, post gastric surgery syndrome, history of multiple gastric polyps, eczema, osteoporosis, who lives at home with her admitted for generalized weakness and UTI. Cardiology consulted for concerns of bradycardia and htn urgency. There was also concern for resting chest pain, in which a trial of imdur was initiated. Her metoprolol was held 2/2 low heart rates and losartan reduced. Gastroenterology consulted for weight loos and gastroparesis. She was noted to be constipated and aggressive bowel regimen initiated. Plans for OP EGD/C-scope. Podiatry on consult due to diabetic right foot ulcer. Cultures grew pseudomonas, serratia, and Stenotrophomonas. ID consulted and MRI ordered. Plans for 3 weeks of ciprofloxacin and bactrim x3 weeks Vascular consulted and felt that she has no significant peripheral vascular disease that warrants further investigation. Psychiatry consulted given depressive symptoms and mirtazipine started Patient found to have new acute DVT in BLE. Patient was recommended to be on lovenox bid given noac failure, however patient ultimately decided to go home with hospice. Palliative consulted and confirmed wishes of hospice and DNR/DNI status. On day of discharge, patient was arousable with verbal stimuli--she notes she just wants to go home. Coordinated transport with Case management. #Hospice #Severe protein Calorie Malnutrition #Weight loss, persistent nausea, poor oral intake discontinue trulicity continue bowel regimen at home Bowel regimen upgraded including added enema GI consulted recommended OP follow up for EGD/c-scope Ultiamtely transitioned to hospice iso recurrent dvt and minimal po intake #Acute UTI Empiric Rocephin at first then on cefepime d/t foot wound. Cefepime course completed UC pos for E.coli #Recurrent DVT, NOAC failure #History of pulmonary embolism #Hypercoagulable state #Status post IVC filter Was on prophylactic Lovenox Found to have acute dvt - and on placed on IV heparin Venous doppler- Acute nonocclusive DVT proximal right femoral vein.. Extensive acute nonocclusive DVT left common femoral vein, proximal, middle, and distal femoral vein, and popliteal vein. Discussed w/ Dr. Nielsen (hematology) on 02/05, per prior hospitalist "she does not want to be on Lovenox or anticoagulants when she is discharged to hospice at home" #Mild elevation of troponin Echo - LV EF 60-65%. There is moderate concentric LVH. Aortic valve is modera tely calcified. Bicuspid aortic valve cannot be excluded. Moderate to severe valvular aortic stenosis. There is mild mitral regurg. Doppler findings do not suggest pulm. hypertension. Compared to study in 2023 aortic valve syst. gradient has increased. Cardiology consulted - dose reduced of BB, continued #Heel wound XR of foot negative for osteo. MRI neg for osteo. D/C cefipime and no need for cipro per ID. Continue Bactrim until 02/11. Wound Cultx posit. for Pseudomonas, Serratia , Stenotrophomonas - pt abx changed to cefepime but discontinued with MRI results ID recs noted. MRI reviewed wound care and podiatry consulted No further interventions planned by Podiatry or vascular surgery #CKD stage III Avoid nephrotoxins #Gout continue Allopurinol #Chronic diastolic CHF Not on diuretics presently #Hypertension On metoprolol, dose reduced discontinue losartan #Diabetes discontinue trulicity and metformin Current HbA1c level 6.6% #GERD Protonix #Hyperlipidemia On statin but consider discontinuation while on hospice #History of PVD s/p surgery On aspirin and statin No plans for intervention by vascular surgery #History of endometrial cancer S/p surgery #Hyperkalemia resolved Within normal limits post Lokelma Meds reviewed. EKG w/o acute changes #Depression Psychiatry consulted Patient placed on mirtazapine . Patient is wheelchair-or bed bound. She has severe aortic stenosis, severe gastroparesis, weight loss, failure to thrive and heart failure; patient d/c with home hospice Notes For Next Care Provider discharged on home hospice Medication Changes From Visit discontinue lovenox discontinue losartan discontinue trulicity and metformin start mirtazipine 7.5mg qhs start 4mg zofran q8h prn N&V Admission HPI Per Admitting Provider 79-year-old female with past med history significant for type 2 diabetes, CKD stage III, gout, hyperlipidemia, pancreatic cyst, congenital hiatus hernia, history of recurrent DVT, history of pulmonary embolism, primary hypercoagulable state, status post IVC filter, right bundle branch block, nonrheumatic arctic valve stenosis, hypertension, post gastric surgery syndrome, history of multiple gastric polyps, eczema, osteoporosis, who lives at home with her comes because of weakness. Patient says since about a week she is progressively getting weak. Today she was not able to put her socks on which prompted her to come to the ER. She also having some burning micturition since about a week. Also having urinary urgency. Denies any fevers. No abdominal pain. Constipated. Denies any chest pain or shortness of breath. No cough. No runny nose or sore throat. Hemodynamics are okay. Patient is wheelchair-bound at home. She can transfer herself from recliner to wheelchair. Patient also is losing weight lately. As per PCP notes in October because of weight loss there was a plan to hold Trulicity but patient is still taking Trulicity. Past medical history. As mentioned above Past surgical history. Repair of abdominal aortic aneurysm in 2010. Colonoscopy with biopsy. Incision and drainage of complex postoperative wound infection. EGD. EGD with biopsy. EGD with endoscopic ultrasound. Laparoscopic Miguel fundoplication, left lower quadrant and abdominal incarcerated incisional hernia repair with Dura-Guard mesh. Esophagogastric fundoplasty. Negative pressure wound therapy. Removal of mesh of abdominal wall necrotizing soft tissue infection. Bilateral cataracts. Repair of parae sophageal hernia. Repair of recurrent incisional hernia. Revision of right ankle joint arthroplasty. Total abdominal hysterectomy with removal of tubes. Bypass graft with vein femoral popliteal. Social history. . No smoking. No alcohol use. No drug use. Family history. Maternal grandmother had diabetes. Maternal grandfather had hypertension. Peripheral vascular disease. Mother had hypertension. Admission Exam Per Admitting Provider General- Not in distress. hard of hearing Head- atraumatic Eyes- PERRL. ENT- oropharynx clear Neck- supple, no JVD. Lungs- clear to auscultation no wheezing or crackles Heart- regular rhythm; no murmur, no gallop. Abdomen- normal bowel sounds, soft, nontender, no distension Extremities- mild pretibial edema, no erythema seen. Neuro- alert, oriented PERRL, no facial palsy; no dysarthria; moves extremities Discharge Exam Constitutional sleeping, awakens easily Respiratory normal respiratory effort, lungs clear to auscultation Cardiovascular JAKE+, RRR, trace edema Updated Medication List Medication Instructions Recorded Confirmed Type triamcinolone acetonide 0.1 % 1 appln topical BID PRN Skin 04/20/19 02/02/25 History topical cream Irritation allopurinol 100 mg tablet 100 mg PO DAILY #30 tabs 11/25/23 02/02/25 Rx aspirin 81 mg tablet,delayed 81 mg PO DAILY #30 tabs 11/25/23 02/02/25 Rx release colestipol 1 gram tablet 1 gm PO BID #60 tabs 11/25/23 02/02/25 Rx metoprolol tartrate 25 mg tablet 25 mg PO BID #60 tabs 11/25/23 02/02/25 Rx pantoprazole 20 mg tablet,delayed 20 mg PO DAILY #30 tabs 11/25/23 02/02/25 Rx release lidocaine 4 % topical patch 1 patch topical DAILY PRN LOWER 02/02/25 02/02/25 History BACK PAIN mirtazapine 15 mg tablet 7.5 mg (1/2 x 15 mg) PO HS 30 days 02/12/25 Rx #15 tabs ondansetron 4 mg disintegrating 4 mg PO Q8H PRN nausea and 02/12/25 Rx tablet vomiting 5 days #15 tabs polyethylene glycol 3350 17 gram 17 g PO TID 30 days #90 ea 02/12/25 Rx oral powder packet (Miralax) sennosides 8.6 mg tablet (Senna 8.6 mg PO QAM 30 days #30 tabs 02/12/25 Rx Lax) Hospital Stay Data Consultations 02/02/25 00:23 ED Decision to Admit Stat 02/02/25 09:34 Consult Cardiology Routine 02/02/25 11:43 Consult Podiatry Routine 02/02/25 12:06 Consult Cardiology Routine 02/04/25 08:00 Consult Infectious Diseases Routine 02/05/25 19:06 Consult Gastroenterology Routine 02/05/25 20:10 Consult Vascular Surgery Routine 02/07/25 13:31 Consult Psychiatry Routine 02/08/25 10:31 Consult Palliative Care Routine Diagnostic Imagining Performed 02/02/25 16:50 US arterial duplex LE BI Routine 02/03/25 00:21 US venous doppler LE BI Routine 02/05/25 09:08 CT angio chest PE protocol Urgent 02/05/25 19:05 CT abd pelvis IV con only Routine 02/08/25 11:58 MR ankle RT wo con Routine Pending Results Patient Have Any Pending Studies at Discharge: No Discharge Instructions Given to Patient (Per Discharging Provider) You were admitted for weakness and found to have a urinary tract infection and recurrent clots in your bilateral lower legs You were also noted to have very poor intake. You were examined by Palliative Care and Psychiatry Ultimately it was decided that going home with hospice care was in line with your care goals You were started on mirtazapine 7.5 mg at bedtime, your next dose is this evening You will be sent with zofran 4mg disintegrating to take every four hours as needed for nausea and vomiting Please continue a bowel regimen as tolerated Given plans for hospice care, you can discontinue medications and supplements at this time that do not impact your current symptoms. Metoprolol can be continued to keep heart rates stable. You ca ncontinue the medications that help with heart burn, like Pantoprazole, and your bowel symptoms, like Colestipol. Given your poor intake, you can discontinue your diabetes regimen and prioritize eating what you wish to eat at this time. Total Time Total Time Spent Total Time Spent (In Minutes): 45
== END 2025-02-12 16:20 | disposition hospice, home (50) | DRG 689 ==
LOC: ED 20:12 → SUATTDRO 02-02 01:58 → 3N 02-02 01:58 → 2N 02-02 11:21